=== PATIENT | female | born 1945 | race Caucasian/White ===

== ENCOUNTER → 2018-02-26 | Outpatient (CLI) | payer MEDICARE ==
--- NOTE | 2018-03-10 14:53 | MM ---
Reason for exam: screening (asymptomatic). History: Patient is postmenopausal. No children. Had some kind of female CA in 1993. MG 3D Screening Mammo W/Cad Bilateral CC and MLO view(s) were taken. XCCL view(s) were taken of the right breast. No prior studies available for comparison. There are scattered fibroglandular densities. No discrete abnormality. Previous images unavailable at this time, if they come available an addendum can be done. ASSESSMENT: Benign, BI-RAD 2 RECOMMENDATION: Routine screening mammogram of both breasts in 1 year.
== END | disposition home or self-care (01) ==
LOC: RADMAMWWP 13:00
PROVIDERS: ATTEND Family Medicine
DX: Z12.31 Encounter for screening mammogram for malignant neoplasm of breast (principal)
CPT/HCPCS: 77063; 77067

== ENCOUNTER → 2019-03-14 | Outpatient (CLI) | payer MEDICARE ==
--- NOTE | 2019-03-17 10:01 | MM ---
Reason for exam: screening (asymptomatic). Last mammogram was performed 1 year and 1 month ago. History: Patient is postmenopausal. Physical Findings: A clinical breast exam by your physician is recommended on an annual basis and results should be correlated with mammographic findings. MG 3D Screening Mammo W/Cad Bilateral CC and MLO view(s) were taken. Prior study comparison: February 26, 2018, bilateral MG 3d screening mammo w/cad. There are scattered fibroglandular densities. Benign appearing bilateral calcifications. No suspicious abnormality. No significant changes when compared with prior studies. ASSESSMENT: Benign, BI-RAD 2 RECOMMENDATION: Routine screening mammogram of both breasts in 1 year.
== END | disposition home or self-care (01) ==
LOC: RADMAMWWP 10:37
PROVIDERS: ATTEND Family Medicine
DX: Z12.31 Encounter for screening mammogram for malignant neoplasm of breast (principal)
CPT/HCPCS: 77063; 77067

== ENCOUNTER 2019-03-18 14:42 | Inpatient (IN) | payer MEDICARE ==
[2019-03-18] MEDS ORDERED: SODIUM CHLORIDE 0.9% 500 ML 500 ML IV ONE (15:56)
[2019-03-18] MEDS ORDERED: ONDANSETRON 4 MG/2 ML VIAL IVP STA (15:57)
--- NOTE | 2019-03-18 16:08 | ED ---
General Adult HPI - General Source: patient, family, RN notes reviewed, old records reviewed Mode of arrival: ambulatory Limitations: no limitations <Victorino Valle - Last Filed: 03/18/19 16:46> <Victorino Valles - Last Filed: 03/18/19 18:07> - General Chief complaint: Shortness of Breath Stated complaint: ABDIRAHMAN Time Seen by Provider: 03/18/19 15:00 - History of Present Illness Initial comments: This is a 73-year-old female presents emergency Department stating that since last Sunday she has not been feeling well. Patient states on Sunday her sugar was low at 43 and EMS was called they gave her some glucose and she's felt at that time. Patient states since then however she vomits almost every time she eats. Patient also states she's more short of breath when she ambulates. Patient states she's always somewhat short of breath when she walks around but since Sunday is worse. Patient also states that she is very forgetful and that is significantly worsen her baseline and it all occurred since last Sunday. Patient denies any focal deficits. Patient denies any lightheadedness or dizziness. Patient denies any chest pain or palpitations. Patient states while lying in bed she's had no difficulty breathing. Patient denies any fever chills or cough per patient denies abdominal pain. Patient denies any diarrhea. Fact patient states she thinks she is mildly constipated. Patient denies any swelling to the legs. Patient denies starting any new medications (Victorino Valle) - Related Data Allergies Allergy/AdvReac Type Severity Reaction Status Date / Time naproxen [From Naprosyn] Allergy Dyspnea Verified 03/18/19 14:47 Review of Systems ROS Other: All systems not noted in ROS Statement are negative. <Victorino Valle - Last Filed: 03/18/19 16:46> ROS Other: All systems not noted in ROS Statement are negative. <Victorino Valles - Last Filed: 03/18/19 18:07> ROS Statement: Those systems with pertinent positive or pertinent negative responses have been documented in the HPI. Past Medical History Past Medical History: Cancer, Diabetes Mellitus, Hyperlipidemia, Hypertension, Renal Disease Additional Past Medical History / Comment(s): uterine ca History of Any Multi-Drug Resistant Organisms: None Reported Past Surgical History: Bariatric Surgery, Cholecystectomy, Hysterectomy, Joint Replacement Additional Past Surgical History / Comment(s): kashif knee,rt foot, Past Psychological History: Depression Smoking Status: Former smoker Past Alcohol Use History: None Reported Past Drug Use History: None Reported <Victorino Valle - Last Filed: 03/18/19 16:46> General Exam Limitations: no limitations <Victorino Valle - Last Filed: 03/18/19 16:46> - General Exam Comments Initial Comments: GENERAL: Patient is well-developed and well-nourished. Patient is nontoxic and well- hydrated and is in acute distress. ENT: Neck is soft and supple. No significant lymphadenopathy is noted. Oropharynx is clear. Moist mucous membranes. Neck has full range of motion without eliciting any pain. EYES: The sclera were anicteric and conjunctiva were pink and moist. Extraocular movements were intact and pupils were equal round and reactive to light. Eyelids were unremarkable. PULMONARY: Unlabored respirations. Good breath sounds bilaterally. No audible rales rhonchi or wheezing was noted. CARDIOVASCULAR: There is a regular rate and rhythm without any murmurs gallops or rubs. ABDOMEN: Soft and nontender with normal bowel sounds. No palpable organomegaly was noted. There is no palpable pulsatile mass. SKIN: Skin is clear with no lesions or rashes and otherwise unremarkable. NEUROLOGIC: Patient is alert and oriented x3. Cranial nerves II through XII are grossly intact. Motor and sensory are also intact. Normal speech, volume and content. Symmetrical smile. MUSCULOSKELETAL: Normal extremities with adequate strength and full range of motion. LYMPHATICS: No significant lymphadenopathy is noted PSYCHIATRIC: Normal psychiatric evaluation. (Victorino Valle) Course <Victorino Valles - Last Filed: 03/18/19 18:07> Vital Signs 03/18/19 03/18/19 14:43 17:23 Temperature 98.0 F Pulse Rate 88 75 Respiratory 22 18 Rate Blood Pressure 182/82 158/77 O2 Sat by Pulse 97 97 Oximetry - Reevaluation(s) Reevaluation #1: 03/18/19 18:05 Medical records reviewed (Victorino Valles) Reevaluation #2: 03/18/19 18:05 Spoke with patient regarding findings, questions are answered here in the ER, patient still feels weak and dizzy lightheaded (Victorino Valles) - Consultations Consultation #1: Spoke with Dr. Panchal agreeable to admit (Victorino Valles) Medical Decision Making - Lab Data Result diagrams: 03/18/19 15:00 03/18/19 15:00 <Victorino Valle - Last Filed: 03/18/19 16:46> - Lab Data Result diagrams: 03/18/19 15:00 03/18/19 15:00 - Radiology Data Radiology results: report reviewed (CT brain CXR negative for acute disaease), image reviewed <Victorino Valles - Last Filed: 03/18/19 18:07> - Medical Decision Making EKG shows sinus rhythm at 84 bpm with an occasional PAC. MO interval 256 dresses 86 QT interval 360 QTC is 425. Patient's EKG shows no ST segment elevation or depression. Dr. Valles will take over the care of this patient at 5 PM (Victorino Valle) 73 female to the ER for evaluation patient presents today for evaluation regards to weakness persistent nausea vomiting and not feeling altered mental status patient is significantly uremia failure will admit for IV hydration due to dermatology to evaluate (Victorino Valles) - Lab Data Lab Results 03/18/19 03/18/19 03/18/19 Range/Units 15:00 15:00 15:00 WBC 6.5 (3.8-10.6) k/uL RBC 3.89 (3.80-5.40) m/uL Hgb 11.2 L (11.4-16.0) gm/dL Hct 36.0 (34.0-46.0) % MCV 92.5 (80.0-100.0) fL MCH 28.7 (25.0-35.0) pg MCHC 31.1 (31.0-37.0) g/dL RDW 14.8 (11.5-15.5) % Plt Count 293 (150-450) k/uL Neutrophils % 66 % Lymphocytes % 23 % Monocytes % 6 % Eosinophils % 2 % Basophils % 1 % Neutrophils # 4.3 (1.3-7.7) k/uL Lymphocytes # 1.5 (1.0-4.8) k/uL Monocytes # 0.4 (0-1.0) k/uL Eosinophils # 0.1 (0-0.7) k/uL Basophils # 0.1 (0-0.2) k/uL Hypochromasia Slight PT 9.6 (9.0-12.0) sec INR 0.9 (<1.2) APTT 22.5 (22.0-30.0) sec Sodium 140 (137-145) mmol/L Potassium 5.7 H (3.5-5.1) mmol/L Chloride 113 H (98-107) mmol/L Carbon Dioxide 12 L (22-30) mmol/L Anion Gap 15 mmol/L BUN 70 H (7-17) mg/dL Creatinine 6.06 H (0.52-1.04) mg/dL Est GFR (CKD-EPI)AfAm 7 (>60 ml/min/1.73 sqM) Est GFR (CKD-EPI)NonAf 6 (>60 ml/min/1.73 sqM) Glucose 200 H (74-99) mg/dL POC Glucose (mg/dL) (75-99) mg/dL POC Glu Concreting Supervisor ID Calcium 8.6 (8.4-10.2) mg/dL Total Bilirubin 0.4 (0.2-1.3) mg/dL AST 26 (14-36) U/L ALT 15 (4-34) U/L Alkaline Phosphatase 162 H (38-126) U/L Troponin I (0.000-0.034) ng/mL NT-Pro-B Natriuret Pep pg/mL Total Protein 7.1 (6.3-8.2) g/dL Albumin 3.8 (3.5-5.0) g/dL Urine Color Urine Appearance (Clear) Urine pH (5.0-8.0) Ur Specific [place] (1.001-1.035) Urine Protein (Negative) Urine Glucose (UA) (Negative) Urine Ketones (Negative) Urine Blood (Negative) Urine Nitrite (Negative) Urine Bilirubin (Negative) Urine Urobilinogen (<2.0) mg/dL Ur Leukocyte Esterase (Negative) Urine RBC (0-5) /hpf Urine WBC (0-5) /hpf Ur Squamous Epith Cells (0-4) /hpf Urine Bacteria (None) /hpf Hyaline Casts (0-2) /lpf Urine Mucus (None) /hpf Urine Opiates Screen (NotDetected) Ur Oxycodone Screen (NotDetected) Urine Methadone Screen (NotDetected) Ur Propoxyphene Screen (NotDetected) Ur Barbiturates Screen (NotDetected) U Tricyclic Antidepress (NotDetected) Ur Phencyclidine Scrn (NotDetected) Ur Amphetamines Screen (NotDetected) U Methamphetamines Scrn (NotDetected) U Benzodiazepines Scrn (NotDetected) Urine Cocaine Screen (NotDetected) U Marijuana (THC) Screen (NotDetected) 03/18/19 03/18/19 03/18/19 Range/Units 15:00 15:00 17:15 WBC (3.8-10.6) k/uL RBC (3.80-5.40) m/uL Hgb (11.4-16.0) gm/dL Hct (34.0-46.0) % MCV (80.0-100.0) fL MCH (25.0-35.0) pg MCHC (31.0-37.0) g/dL RDW (11.5-15.5) % Plt Count (150-450) k/uL Neutrophils % % Lymphocytes % % Monocytes % % Eosinophils % % Basophils % % Neutrophils # (1.3-7.7) k/uL Lymphocytes # (1.0-4.8) k/uL Monocytes # (0-1.0) k/uL Eosinophils # (0-0.7) k/uL Basophils # (0-0.2) k/uL Hypochromasia PT (9.0-12.0) sec INR (<1.2) APTT (22.0-30.0) sec Sodium (137-145) mmol/L Potassium (3.5-5.1) mmol/L Chloride (98-107) mmol/L Carbon Dioxide (22-30) mmol/L Anion Gap mmol/L BUN (7-17) mg/dL Creatinine (0.52-1.04) mg/dL Est GFR (CKD-EPI)AfAm (>60 ml/min/1.73 sqM) Est GFR (CKD-EPI)NonAf (>60 ml/min/1.73 sqM) Glucose (74-99) mg/dL POC Glucose (mg/dL) 109 H (75-99) mg/dL POC Glu Concreting Supervisor ID Gautam Almonte Calcium (8.4-10.2) mg/dL Total Bilirubin (0.2-1.3) mg/dL AST (14-36) U/L ALT (4-34) U/L Alkaline Phosphatase (38-126) U/L Troponin I <0.012 (0.000-0.034) ng/mL NT-Pro-B Natriuret Pep 1190 pg/mL Total Protein (6.3-8.2) g/dL Albumin (3.5-5.0) g/dL Urine Color Urine Appearance (Clear) Urine pH (5.0-8.0) Ur Specific [place] (1.001-1.035) Urine Protein (Negative) Urine Glucose (UA) (Negative) Urine Ketones (Negative) Urine Blood (Negative) Urine Nitrite (Negative) Urine Bilirubin (Negative) Urine Urobilinogen (<2.0) mg/dL Ur Leukocyte Esterase (Negative) Urine RBC (0-5) /hpf Urine WBC (0-5) /hpf Ur Squamous Epith Cells (0-4) /hpf Urine Bacteria (None) /hpf Hyaline Casts (0-2) /lpf Urine Mucus (None) /hpf Urine Opiates Screen (NotDetected) Ur Oxycodone Screen (NotDetected) Urine Methadone Screen (NotDetected) Ur Propoxyphene Screen (NotDetected) Ur Barbiturates Screen (NotDetected) U Tricyclic Antidepress (NotDetected) Ur Phencyclidine Scrn (NotDetected) Ur Amphetamines Screen (NotDetected) U Methamphetamines Scrn (NotDetected) U Benzodiazepines Scrn (NotDetected) Urine Cocaine Screen (NotDetected) U Marijuana (THC) Screen (NotDetected) 03/18/19 Range/Units Unknown WBC (3.8-10.6) k/uL RBC (3.80-5.40) m/uL Hgb (11.4-16.0) gm/dL Hct (34.0-46.0) % MCV (80.0-100.0) fL MCH (25.0-35.0) pg MCHC (31.0-37.0) g/dL RDW (11.5-15.5) % Plt Count (150-450) k/uL Neutrophils % % Lymphocytes % % Monocytes % % Eosinophils % % Basophils % % Neutrophils # (1.3-7.7) k/uL Lymphocytes # (1.0-4.8) k/uL Monocytes # (0-1.0) k/uL Eosinophils # (0-0.7) k/uL Basophils # (0-0.2) k/uL Hypochromasia PT (9.0-12.0) sec INR (<1.2) APTT (22.0-30.0) sec Sodium (137-145) mmol/L Potassium (3.5-5.1) mmol/L Chloride (98-107) mmol/L Carbon Dioxide (22-30) mmol/L Anion Gap mmol/L BUN (7-17) mg/dL Creatinine (0.52-1.04) mg/dL Est GFR (CKD-EPI)AfAm (>60 ml/min/1.73 sqM) Est GFR (CKD-EPI)NonAf (>60 ml/min/1.73 sqM) Glucose (74-99) mg/dL POC Glucose (mg/dL) (75-99) mg/dL POC Glu Concreting Supervisor ID Calcium (8.4-10.2) mg/dL Total Bilirubin (0.2-1.3) mg/dL AST (14-36) U/L ALT (4-34) U/L Alkaline Phosphatase (38-126) U/L Troponin I (0.000-0.034) ng/mL NT-Pro-B Natriuret Pep pg/mL Total Protein (6.3-8.2) g/dL Albumin (3.5-5.0) g/dL Urine Color Light Yellow Urine Appearance Cloudy H (Clear) Urine pH 5.5 (5.0-8.0) Ur Specific [place] 1.012 (1.001-1.035) Urine Protein 2+ H (Negative) Urine Glucose (UA) Trace H (Negative) Urine Ketones Negative (Negative) Urine Blood Trace H (Negative) Urine Nitrite Negative (Negative) Urine Bilirubin Negative (Negative) Urine Urobilinogen <2.0 (<2.0) mg/dL Ur Leukocyte Esterase Large H (Negative) Urine RBC 4 (0-5) /hpf Urine WBC 6 H (0-5) /hpf Ur Squamous Epith Cells 5 H (0-4) /hpf Urine Bacteria Occasional H (None) /hpf Hyaline Casts 3 H (0-2) /lpf Urine Mucus Rare H (None) /hpf Urine Opiates Screen Not Detected (NotDetected) Ur Oxycodone Screen Detected H (NotDetected) Urine Methadone Screen Not Detected (NotDetected) Ur Propoxyphene Screen Not Detected (NotDetected) Ur Barbiturates Screen Not Detected (NotDetected) U Tricyclic Antidepress Not Detected (NotDetected) Ur Phencyclidine Scrn Not Detected (NotDetected) Ur Amphetamines Screen Not Detected (NotDetected) U Methamphetamines Scrn Not Detected (NotDetected) U Benzodiazepines Scrn Not Detected (NotDetected) Urine Cocaine Screen Not Detected (NotDetected) U Marijuana (THC) Screen Not Detected (NotDetected) Disposition <Victorino Valle - Last Filed: 03/18/19 16:46> Is patient prescribed a controlled substance at d/c from ED?: No <Victorino Valles - Last Filed: 03/18/19 18:07> Clinical Impression: Weakness, Altered mental status, Uremia, Acute renal failure Disposition: ADMITTED IP TO THIS [facility] Condition: Good Referrals: Gautam Rizvi DO [Primary Care Provider] - 1-2 days
[2019-03-18 16:12] LABS: Basophils # (A) 0.1 k/uL (0-0.2); Basophils % (A) 1 %; Eosinophils # (A) 0.1 k/uL (0-0.7); Eosinophils % (A) 2 %; HGB 11.2 gm/dL (11.4-16.0); Hypochromasia Slight; Lymphocytes # (A) 1.5 k/uL (1.0-4.8); Lymphocytes % (A) 23 %; MCH 28.7 pg (25.0-35.0); MCHC 31.1 g/dL (31.0-37.0); MCV 92.5 fL (80.0-100.0); Mean Platelet Volume 7.6; Monocytes # (A) 0.4 k/uL (0-1.0); Monocytes % (A) 6 %; Neutrophils # (A) 4.3 k/uL (1.3-7.7); Neutrophils % (A) 66 %; Platelet Count 293 k/uL (150-450); RBC 3.89 m/uL (3.80-5.40); RDW 14.8 % (11.5-15.5); WBC 6.5 k/uL (3.8-10.6)
[2019-03-18 16:21] LABS: INR 0.9 (<1.2); Partial Thromboplastin Time 22.5 sec (22.0-30.0); Prothrombin Time 9.6 sec (9.0-12.0)
[2019-03-18 16:23] LABS: Albumin 3.8 g/dL (3.5-5.0); Calcium 8.6 mg/dL (8.4-10.2); Potassium 5.7 mmol/L (3.5-5.1); Total Bilirubin 0.4 mg/dL (0.2-1.3); Total Protein 7.1 g/dL (6.3-8.2)
[2019-03-18] MEDS ORDERED: DILTIAZEM DRIP BOLUS FROM BAG 1 MG SOLN IV ONE (16:40)
--- NOTE | 2019-03-18 17:08 | CT ---
EXAMINATION TYPE: CT brain wo con DATE OF EXAM: 03/18/2019 COMPARISON: None HISTORY: weakness and dizziness. CT DLP: 1074.4 mGycm Automated exposure control for dose reduction was used. Multiple axial sections were obtained of the brain without contrast. There is mild cerebral atrophy. There is no mass effect nor midline shift. There is no sign of intrac ranial hemorrhage. Calvarium is intact. There is no evidence of cerebral edema. IMPRESSION: Mild atrophy. No acute intracranial abnormality.
--- NOTE | 2019-03-18 17:09 | XR ---
EXAMINATION TYPE: XR chest 2V DATE OF EXAM: 03/18/2019 COMPARISON: NONE HISTORY: Short of breath TECHNIQUE: 2 views FINDINGS: There is elevated right diaphragm. There is linear density right lung base. There is no hea rt failure. Left lung is clear. There are chest leads. Heart size is fairly normal. IMPRESSION: There is some atelectasis right lung base with elevated right diaphragm.
[2019-03-18 17:16] LABS: Glucose,Whole Blood 109 mg/dL (75-99)
[2019-03-18] MEDS ORDERED: SODIUM CHLORIDE 0.9% 1,000 ML IV STA (17:26)
[2019-03-18 17:56] LABS: Appearance,Urine Cloudy (Clear); Bacteria,Urine Occasional /hpf; Bilirubin,Urine Negative (Negative); Blood,Urine Trace (Negative); Color,Urine Light Yellow; Glucose,Urine (UA) Trace (Negative); Hyaline Casts,Urine 3 /lpf (0-2); Ketones,Urine Negative (Negative); Leukocyte Esterase,Urine Large (Negative); Mucus,Urine Rare /hpf; Nitrite,Urine Negative (Negative); PH, Urine 5.5 (5.0-8.0); Protein,Urine 2+ (Negative); RBC,Urine 4 /hpf (0-5); Specific Gravity,Urine 1.012 (1.001-1.035); Squamous Epithelial Cell,Urine 5 /hpf (0-4); Urobilinogen,Urine <2.0 mg/dL (<2.0); WBC,Urine 6 /hpf (0-5)
[2019-03-18 18:00] LABS: Amphetamine Screen,Urine Not Detected (NotDetected); Barbiturate Screen,Urine Not Detected (NotDetected); Benzodiazepines Screen,Urine Not Detected (NotDetected); Cocaine Screen,Urine Not Detected (NotDetected); Methadone Screen, Urine Not Detected (NotDetected); Opiate Screen,Urine Not Detected (NotDetected); Oxycodone Screen, Urine Detected (NotDetected); Phencyclidine Screen,Urine Not Detected (NotDetected); Tricyclic Antidepressant,Urine Not Detected (NotDetected); Urn Cannabinoid Scrn Not Detected (NotDetected)
[2019-03-18] MEDS ORDERED: SODIUM CHLORIDE 0.9% 1,000 ML IV ONE (18:04)
[2019-03-18 18:06] LABS: Magnesium 1.5 mg/dL (1.6-2.3)
[2019-03-18] MEDS ORDERED: SODIUM POLYSTYRENE SULFONATE 15 GM/60 ML BOTTLE PO STA (20:11)
[2019-03-18] MEDS ORDERED: ENOXAPARIN 40 MG/0.4 ML SYRINGE SQ SCH (21:00)
[2019-03-18 21:25] LABS: Glucose,Whole Blood 88 mg/dL (75-99)
[2019-03-18] MEDS: DILTIAZEM ORAL 60 MG TAB PO SCH (21:36)
[2019-03-18] MEDS: oxyCODONE-APAP 10-325MG 1 EACH TAB PO PRN (21:36)
[2019-03-18] MEDS: CYANOCOBALAMIN 500 MCG TAB PO SCH (21:37)
[2019-03-18] MEDS: SODIUM CHLORIDE 0.9% 1,000 ML IV SCH (21:37)
[2019-03-18] MEDS: ONDANSETRON 4 MG/2 ML VIAL IVP PRN (23:48)
[2019-03-19] MEDS: BISACODYL 5 MG TABLET.DR PO PRN (04:08)
[2019-03-19 06:04] LABS: Glucose,Whole Blood 71 mg/dL (75-99)
[2019-03-19 06:08] LABS: Albumin 2.9 g/dL (3.5-5.0); Calcium 7.7 mg/dL (8.4-10.2); Total Bilirubin 0.3 mg/dL (0.2-1.3); Total Protein 5.7 g/dL (6.3-8.2)
[2019-03-19] MEDS: LEVOTHYROXINE 112 MCG TAB PO SCH (06:31)
[2019-03-19] MEDS: SODIUM CHLORIDE 0.9% 1,000 ML IV SCH (06:31)
[2019-03-19] MEDS: ONDANSETRON 4 MG/2 ML VIAL IVP PRN ×3 (06:34→17:06)
[2019-03-19] MEDS: DILTIAZEM ORAL 60 MG TAB PO SCH ×2 (08:57→21:12)
[2019-03-19] MEDS: CITALOPRAM HYDROBROMIDE 20 MG TAB PO SCH (08:57)
[2019-03-19] MEDS: ATORVASTATIN 20 MG TAB PO SCH (08:57)
[2019-03-19] MEDS: oxyCODONE-APAP 10-325MG 1 EACH TAB PO PRN ×3 (09:00→23:33)
--- NOTE | 2019-03-19 09:46 | P.NPCON ---
History of Present Illness - Reason for Consult acute renal failure, chronic renal failure - History of Present Illness Reason for consultation: Acute kidney injury on chronic kidney disease History of present illness: Patient is a 73-year-old female seen in renal consultation for acute kidney injury on chronic kidney disease. Patient has chronic kidney disease stage IV secondary to diabetic kidney disease with baseline creatinine near 2.2. Patient states her blood sugar has been running low recently and she's been having intermittent episodes of vomiting. Patient's his oral intake has been poor. Additionally she was taking lisinopril as well as Lasix at home. Patient received 1.5 L bolus of normal saline in the ER and is currently maintained on normal saline at 1 25 mL an hour. She does not have a Nieves catheter. She has been voiding. No diarrhea. No evidence of hypotension. Her blood pressures actually on the higher side. She denies family history of renal disease. Patient's creatinine on admission was 6.06 and is 5.57 today. She is also noted to be acidotic and a bicarb level today is 14. She denies use of nonsteroidals. No fever or chills. No chest pain or shortness of breath. Blood sugar this admission has been stable. Vital signs are stable. General: The patient appeared well nourished and normally developed. HEENT: Head exam is unremarkable. Neck is without jugular venous distension. LUNGS: Lungs are clear to auscultation and percussion. Breath sounds decreased. HEART: Rate and Rhythm are regular. First and second heart sounds normal. No murmurs, rubs or gallops. ABDOMEN: Abdominal exam reveals normal bowel sounds. Non-tender and non- distended. No evidence of peritonitis. EXTREMITITES: Trace edema. Past Medical History Past Medical History: Cancer, Diabetes Mellitus, Hyperlipidemia, Hypertension, Renal Disease Additional Past Medical History / Comment(s): uterine ca History of Any Multi-Drug Resistant Organisms: None Reported Past Surgical History: Bariatric Surgery, Cholecystectomy, Hysterectomy, Joint Replacement Additional Past Surgical History / Comment(s): kashif knee,rt foot, Past Psychological History: Depression Smoking Status: Former smoker Past Alcohol Use History: None Reported Past Drug Use History: None Reported - Past Family History Mother Family Medical History: Diabetes Mellitus, Hypertension Father Family Medical History: Diabetes Mellitus, Hypertension Sister(s) Family Medical History: Diabetes Mellitus Medications and Allergies Home Medications Medication Instructions Recorded Confirmed Type Calcitriol 0.5 mcg PO LOBO 03/18/19 03/18/19 History Cholecalciferol [Vitamin D3 (25 2,000 unit PO HS 03/18/19 03/18/19 History Mcg = 1000 Iu)] Citalopram Hydrobromide [CeleXA] 40 mg PO DAILY 03/18/19 03/18/19 History Cyanocobalamin (Vitamin B-12) 1,000 mcg PO HS 03/18/19 03/18/19 History [Vitamin B-12] Diltiazem HCl 120 mg PO BID 03/18/19 03/18/19 History Furosemide [Lasix] 20 mg PO DAILY 03/18/19 03/18/19 History Levothyroxine Sodium [Synthroid] 112 mcg PO DAILY 03/18/19 03/18/19 History Lisinopril [Zestril] 5 mg PO DAILY 03/18/19 03/18/19 History Multivitamin [Multivitamins Adult 1 tab PO HS 03/18/19 03/18/19 History Gummies] Rosuvastatin Calcium [Crestor] 10 mg PO DAILY 03/18/19 03/18/19 History glipiZIDE [Glucotrol] 10 mg PO AC-BID 03/18/19 03/18/19 History oxyCODONE-APAP 10-325MG [Percocet 1 tab PO TID PRN 03/18/19 03/18/19 History 10-325 mg] Allergies Allergy/AdvReac Type Severity Reaction Status Date / Time naproxen [From Naprosyn] Allergy Dyspnea Verified 03/18/19 14:47 Physical Exam Vitals: Vital Signs Temp Pulse Pulse Resp BP BP Pulse Ox 03/19/19 08:00 98.9 F 82 18 179/86 97 03/19/19 04:00 98.0 F 80 17 182/77 96 03/19/19 00:00 97.8 F 83 18 139/62 95 03/18/19 21:08 97.8 F 80 18 179/82 100 03/18/19 20:18 98.0 F 81 18 145/86 97 03/18/19 20:08 81 18 145/86 97 03/18/19 20:00 82 18 03/18/19 17:23 75 18 158/77 97 03/18/19 14:43 98.0 F 88 22 182/82 97 Intake and Output 03/18/19 03/19/19 03/19/19 22:59 06:59 14:59 Intake Total 125 360 Output Total 800 300 Balance 125 -800 60 Intake: Intake, IV Titration 125 Amount Sodium Chloride 0.9% 1, 125 000 ml @ 125 mls/hr IV . Q8H [facility] Rx#:[id number] Oral 360 Output: Urine 800 300 Other: Voiding Method Toilet Toilet # Voids 2 1 # Bowel Movements 1 Weight 111.13 kg 113.2 kg Results - Lab Results Most recent lab results Calcium 7.7 mg/dL (8.4-10.2) L 03/19/19 05:36 Phosphorus 7.0 mg/dL (2.5-4.5) H 03/18/19 15:00 Magnesium 1.5 mg/dL (1.6-2.3) L 03/18/19 15:00 03/18/19 15:00 03/19/19 05:36 Assessment and Plan Plan: Assessment: 1. Acute kidney injury secondary to ATN secondary to intravascular volume depletion from vomiting and poor oral intake and further worsened with the use of diuretics and lisinopril. Creatinine 6.06 on admission and is 5.57 today. Rule out urinary retention. 2. Chronic kidney disease stage IV secondary to diabetic kidney disease with baseline creatinine near 2.2. 3. Hyperkalemia secondary to acute kidney injury, metabolic acidosis and use of lisinopril. 4. Metabolic acidosis secondary to acute kidney injury. 5. Insulin-dependent diabetes mellitus. 6. Hypertension with chronic kidney disease. 7. Chronic kidney disease mineral bone disease maintained on calcitriol. Plan: Discontinue normal saline and start isotonic sodium bicarbonate drip to be run at 80 mL an hour. Strict is and os. Check bladder scan to make sure no underlying urinary retention. Hold lisinopril and diuretics for now. Add hydralazine 25 mg 3 times daily. Continue to monitor renal function and urine output. Thank you for the consultation. I will continue to follow the patient with you during her hospital stay.
[2019-03-19] MEDS: DEXTROSE 5% IN WATER 1,000 ML with SODIUM BICARB (1 MEQ/ML) 150 ML IV SCH ×2 (12:04→23:44)
[2019-03-19 12:08] LABS: Glucose,Whole Blood 114 mg/dL (75-99)
[2019-03-19 16:59] LABS: Glucose,Whole Blood 174 mg/dL (75-99)
[2019-03-19] MEDS: hydrALAZINE HCL 25 MG TAB PO SCH ×2 (17:05→21:12)
[2019-03-19] MEDS: INSULIN ASPART (NovoLOG) 100 UNIT/ML VIAL SQ SCH ×2 (17:27→21:13)
[2019-03-19 20:43] LABS: Glucose,Whole Blood 124 mg/dL (75-99)
[2019-03-19] MEDS: CYANOCOBALAMIN 500 MCG TAB PO SCH (21:12)
[2019-03-19] MEDS: ENOXAPARIN 30 MG/0.3 ML SYRINGE SQ SCH (21:12)
[2019-03-19] MEDS: IPRATROPIUM-ALBUTEROL 3 ML NEB INHALATION SCH (21:45)
--- NOTE | 2019-03-19 23:29 | P.HPIM ---
History of Present Illness H&P Date: 03/19/19 Chief Complaint: Tired History of presenting complaint: This is a pleasant [address] Rizvi. Chronic stable medical conditions include hypertension, hyperlipidemia, depression, anxiety, osteoarthritis. Patient about a week ago felt that she cannot really speak felt out of sorts. EMS was called out. Follow Accu-Cheks to be 43. Received glucose and felt better. She did not go to the hospital. Since then she been having nausea vomiting and predominantly throwing up. She went to see a pain specialist Dr. Carrillo and she was again incoherent of that. Decided to send her to the ER. No abdominal pain. Has been having some chills. In the ER found to be in acute renal failure. Patient's baseline creatinine per nephrology rundown 2.2. Review of systems: GEN.: Tired EYES: None HEENT: None NECK: None RESPIRATORY: None CARDIOVASCULAR: None GASTROINTESTINAL: None GENITOURINARY: None MUSCULOSKELETAL: Joint pains LYMPHATICS: None HEMATOLOGICAL: None PSYCHIATRY: None NEUROLOGICAL: No focal currently Past medical history to include: Hypertension, hyperlipidemia, depression, anxiety, osteoarthritis, chronic kidney disease stage IV, uterine cancer, bariatric surgery, depression, osteoarthritis Social history: Does smoke in the past. This is a long-standing friend. Does use a cane. Physical examination: VITAL SIGNS: Reviewed in today's electronic records GENERAL: [BMI 44.2, laying in bed awake a bit tired,]. EYES: [Pupils equal. Conjunctiva narda]l. HEENT: [External appearance of nose and ears normal, oral cavity grossly normal]. NECK: [JVD not raised; masses not palpable]. HEART: [First and second heart sounds are normal; no edema]. LUNGS:[ Respiratory rate normal; clear to auscultation]. ABDOMEN: [Soft, nontender, liver spleen not palpable, no masses palpable]. PSYCH: [Alert and oriented x3; mood and affect narda] MUSCULOSKELETAL: Evidence of OA especially in the hands l. NEUROLOGICAL: [Cranial nerves grossly intact; no facial asymmetry, power and sensation grossly intact]. LYMPHATICS: [No lymph nodes palpable in the axilla and neck] INVESTIGATIONS, reviewed in the clinical context: White count 6.5 hemoglobin 11.2 platelets 293 pressure 5.7 bun 70 creatinine 6.06 Baseline creatinine supposed to be 2.2 UA positive for leukoesterase, WBC Urine drug screen positive for oxycodone EKG tracing personally reviewed by me shows-sinus rhythm Chest x-ray film personally reviewed by me-elevated right diaphragm, lung marlow are clear Computed tomography scan of the brain-lung marlow clear Assessment: -Diabetes mellitus type 2 uncontrolled with episodes of hypoglycemia, symptomatic -Acute kidney injury likely ATN with a contribution from patient being on RAFAEL inhibitor Lasix -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 RAFAEL inhibitor Lasix have been discontinued. Nephrology was consulted. We'll get carotid Doppler. Patient does not have any focal neurological findings. Electrolytes followed closely. Amlodipine medications for blood pressure. Past Medical History Past Medical History: Cancer, Diabetes Mellitus, Hyperlipidemia, Hypertension, Renal Disease Additional Past Medical History / Comment(s): uterine ca History of Any Multi-Drug Resistant Organisms: None Reported Past Surgical History: Bariatric Surgery, Cholecystectomy, Hysterectomy, Joint Replacement Additional Past Surgical History / Comment(s): kashif knee,rt foot, Past Psychological History: Depression Smoking Status: Former smoker Past Alcohol Use History: None Reported Past Drug Use History: None Reported - Past Family History Mother Family Medical History: Diabetes Mellitus, Hypertension Father Family Medical History: Diabetes Mellitus, Hypertension Sister(s) Family Medical History: Diabetes Mellitus Medications and Allergies Home Medications Medication Instructions Recorded Confirmed Type Calcitriol 0.5 mcg PO LOBO 03/18/19 03/18/19 History Cholecalciferol [Vitamin D3 (25 2,000 unit PO 03/18/19 03/18/19 History Mcg = 1000 Iu)] Citalopram Hydrobromide [CeleXA] 40 mg PO DAILY 03/18/19 03/18/19 History Cyanocobalamin (Vitamin B-12) 1,000 mcg PO 03/18/19 03/18/19 History [Vitamin B-12] Diltiazem HCl 120 mg PO BID 03/18/19 03/18/19 History Furosemide [Lasix] 20 mg PO DAILY 03/18/19 03/18/19 History Levothyroxine Sodium [Synthroid] 112 mcg PO DAILY 03/18/19 03/18/19 History Lisinopril [Zestril] 5 mg PO DAILY 03/18/19 03/18/19 History Multivitamin [Multivitamins Adult 1 tab PO HS 03/18/19 03/18/19 History Gummies] Rosuvastatin Calcium [Crestor] 10 mg PO DAILY 03/18/19 03/18/19 History glipiZIDE [Glucotrol] 10 mg PO AC-BID 03/18/19 03/18/19 History oxyCODONE-APAP 10-325MG [Percocet 1 tab PO TID PRN 03/18/19 03/18/19 History 10-325 mg] Allergies Allergy/AdvReac Type Severity Reaction Status Date / Time naproxen [From Naprosyn] Allergy Dyspnea Verified 03/18/19 14:47 Physical Exam Vitals: Vital Signs Temp Pulse Pulse Resp BP BP Pulse Ox 03/19/19 08:00 98.9 F 82 18 179/86 97 03/19/19 04:00 98.0 F 80 17 182/77 96 03/19/19 00:00 97.8 F 83 18 139/62 95 03/18/19 21:08 97.8 F 80 18 179/82 100 03/18/19 20:18 98.0 F 81 18 145/86 97 03/18/19 20:08 81 18 145/86 97 03/18/19 20:00 82 18 03/18/19 17:23 75 18 158/77 97 03/18/19 14:43 98.0 F 88 22 182/82 97 Intake and Output 03/18/19 03/19/19 03/19/19 22:59 06:59 14:59 Intake Total 125 360 Output Total 800 300 Balance 125 -800 60 Intake: Intake, IV Titration 125 Amount Sodium Chloride 0.9% 1, 125 000 ml @ 125 mls/hr IV . Q8H [facility] Rx#:[id number] Oral 360 Output: Urine 800 300 Other: Voiding Method Toilet Toilet Toilet # Voids 2 1 # Bowel Movements 1 Weight 111.13 kg 113.2 kg Results CBC & Chem 7: 03/18/19 15:00 03/19/19 05:36 Labs: Abnormal Lab Results - Last 24 Hours (Table) 03/18/19 03/18/19 03/18/19 Range/Units 15:00 15:00 15:00 Hgb 11.2 L (11.4-16.0) gm/dL Potassium 5.7 H (3.5-5.1) mmol/L Chloride 113 H (98-107) mmol/L Carbon Dioxide 12 L (22-30) mmol/L BUN 70 H (7-17) mg/dL Creatinine 6.06 H (0.52-1.04) mg/dL Glucose 200 H (74-99) mg/dL POC Glucose (mg/dL) (75-99) mg/dL Calcium (8.4-10.2) mg/dL Phosphorus 7.0 H (2.5-4.5) mg/dL Magnesium 1.5 L (1.6-2.3) mg/dL Alkaline Phosphatase 162 H (38-126) U/L Total Protein (6.3-8.2) g/dL Albumin (3.5-5.0) g/dL Urine Appearance (Clear) Urine Protein (Negative) Urine Glucose (UA) (Negative) Urine Blood (Negative) Ur Leukocyte Esterase (Negative) Urine WBC (0-5) /hpf Ur Squamous Epith Cells (0-4) /hpf Urine Bacteria (None) /hpf Hyaline Casts (0-2) /lpf Urine Mucus (None) /hpf Ur Oxycodone Screen (NotDetected) 03/18/19 03/18/19 03/19/19 Range/Units 17:15 Unknown 05:36 Hgb (11.4-16.0) gm/dL Potassium (3.5-5.1) mmol/L Chloride 118 H (98-107) mmol/L Carbon Dioxide 14 L (22-30) mmol/L BUN 64 H (7-17) mg/dL Creatinine 5.57 H (0.52-1.04) mg/dL Glucose 68 L (74-99) mg/dL POC Glucose (mg/dL) 109 H (75-99) mg/dL Calcium 7.7 L (8.4-10.2) mg/dL Phosphorus (2.5-4.5) mg/dL Magnesium (1.6-2.3) mg/dL Alkaline Phosphatase 130 H (38-126) U/L Total Protein 5.7 L (6.3-8.2) g/dL Albumin 2.9 L (3.5-5.0) g/dL Urine Appearance Cloudy H (Clear) Urine Protein 2+ H (Negative) Urine Glucose (UA) Trace H (Negative) Urine Blood Trace H (Negative) Ur Leukocyte Esterase Large H (Negative) Urine WBC 6 H (0-5) /hpf Ur Squamous Epith Cells 5 H (0-4) /hpf Urine Bacteria Occasional H (None) /hpf Hyaline Casts 3 H (0-2) /lpf Urine Mucus Rare H (None) /hpf Ur Oxycodone Screen Detected H (NotDetected) 03/19/19 Range/Units 06:02 Hgb (11.4-16.0) gm/dL Potassium (3.5-5.1) mmol/L Chloride (98-107) mmol/L Carbon Dioxide (22-30) mmol/L BUN (7-17) mg/dL Creatinine (0.52-1.04) mg/dL Glucose (74-99) mg/dL POC Glucose (mg/dL) 71 L (75-99) mg/dL Calcium (8.4-10.2) mg/dL Phosphorus (2.5-4.5) mg/dL Magnesium (1.6-2.3) mg/dL Alkaline Phosphatase (38-126) U/L Total Protein (6.3-8.2) g/dL Albumin (3.5-5.0) g/dL Urine Appearance (Clear) Urine Protein (Negative) Urine Glucose (UA) (Negative) Urine Blood (Negative) Ur Leukocyte Esterase (Negative) Urine WBC (0-5) /hpf Ur Squamous Epith Cells (0-4) /hpf Urine Bacteria (None) /hpf Hyaline Casts (0-2) /lpf Urine Mucus (None) /hpf Ur Oxycodone Screen (NotDetected) Thrombosis Risk Factor Assmnt - Choose All That Apply Each Factor Represents 1 point: Obesity (BMI >25) Thrombosis Risk Factor Assessment Total Risk Factor Score: 1 Thrombosis Risk Factor Assessment Level: Low Risk
[2019-03-19] MEDS ORDERED: amLODIPine 5 MG TAB PO SCH (23:30)
[2019-03-20 05:55] LABS: Glucose,Whole Blood 118 mg/dL (75-99)
[2019-03-20] MEDS: INSULIN ASPART (NovoLOG) 100 UNIT/ML VIAL SQ SCH ×4 (06:22→20:56)
[2019-03-20] MEDS: LEVOTHYROXINE 112 MCG TAB PO SCH (07:02)
[2019-03-20] MEDS: ONDANSETRON 4 MG/2 ML VIAL IVP PRN (07:03)
[2019-03-20 07:06] LABS: Calcium 7.8 mg/dL (8.4-10.2); Magnesium 1.4 mg/dL (1.6-2.3); Potassium 4.1 mmol/L (3.5-5.1)
[2019-03-20] MEDS: oxyCODONE-APAP 10-325MG 1 EACH TAB PO PRN ×3 (08:26→22:56)
[2019-03-20] MEDS: DILTIAZEM ORAL 60 MG TAB PO SCH ×2 (08:27→20:48)
[2019-03-20] MEDS: hydrALAZINE HCL 25 MG TAB PO SCH (08:27)
[2019-03-20] MEDS: CITALOPRAM HYDROBROMIDE 20 MG TAB PO SCH (08:27)
[2019-03-20] MEDS: ATORVASTATIN 20 MG TAB PO SCH (08:28)
[2019-03-20] MEDS: IPRATROPIUM-ALBUTEROL 3 ML NEB INHALATION SCH ×3 (08:31→20:29)
--- NOTE | 2019-03-20 08:58 | US ---
EXAMINATION TYPE: US carotid duplex BILAT DATE OF EXAM: 03/20/2019 COMPARISON: NONE CLINICAL HISTORY: Intermittent slurred speech. Intermittent slurred speech, confusion EXAM MEASUREMENTS: RIGHT: Peak Systolic Velocity (PSV) cm/sec ----- Right CCA: 100.3 ----- Right ICA: 109.4 ----- Right ECA: 121.0 ICA/CCA ratio: 1.1 RIGHT: End Diastole cm/sec ----- Right CCA: 16.8 ----- Right ICA: 29.9 ----- Right ECA: 12.8 LEFT: Peak Systolic Velocity (PSV) cm/sec ----- Left CCA: 111.2 ----- Left ICA: 111.3 ----- Left ECA: 101.6 ICA/CCA ratio: 1.0 LEFT: End Diastole cm/sec ----- Left CCA: 19.3 ----- Left ICA: 37.0 ----- Left ECA: 9.5 VERTEBRALS (direction of flow): Right Vertebral: Antegrade Left Vertebral: Antegrade Mild plaque bilateral bifurcations. No evidence of significant stenosis IMPRESSION: Mild degree of grayscale atheromatous plaquing with no sonographically evident hemodynam ically significant stenosis within either visualized carotid arterial system. Criteria for Assigning % of Stenosis / Diameter reduction (Estimation based on the indirect measurements of the internal carotid artery velocities (ICA PSV). 1. Normal (no stenosis)=ICA PSV < 125 cm/s: ratio < 2.0: ICA EDV<40 cm/s. 2. Less than 50% stenosis=ICA PSV < 125 cm/s: ratio < 2.0: ICA EDV<40 cm/s. 3. 50 to 69% stenosis=ICA PSV of 125 to 230 cm/s: ration 2.0 ? 4.0: ICA EDV 40-100 cm/s. 4. Greater than 70% stenosis to near occlusion= ICA PSV > 230 cm/s: ratio > 4.0: ICA EDV > 100 cm/s. 5. Near occlusion= ICA PSV velocities may be low or undetectable: variable ratio and ICA EDV. 6. Total occlusion=unable to detect flow.
--- NOTE | 2019-03-20 09:41 | P.PN ---
Subjective Patient is seen in follow-up for acute kidney injury on chronic kidney disease. No significant improvement in renal function. She has been voiding. No vomiting or diarrhea. Vital signs are stable. General: The patient appeared well nourished and normally developed. HEENT: Head exam is unremarkable. Neck is without jugular venous distension. LUNGS: Lungs are clear to auscultation and percussion. Breath sounds decreased. HEART: Rate and Rhythm are regular. First and second heart sounds normal. No murmurs, rubs or gallops. ABDOMEN: Abdominal exam reveals normal bowel sounds. Non-tender and non- distended. No evidence of peritonitis. EXTREMITITES: No clubbing, cyanosis, or edema. Objective - Vital Signs Vital signs: Vital Signs Temp 97.9 F 03/20/19 08:00 Pulse 86 03/20/19 08:46 Resp 19 03/20/19 08:00 BP 202/91 03/20/19 08:00 Pulse Ox 95 03/20/19 08:36 Intake & Output 03/19/19 03/20/19 03/20/19 18:59 06:59 18:59 Intake Total 720 600 240 Output Total 300 1100 Balance 420 -500 240 Weight 111 kg Intake: Intake, IV Titration 600 Amount Dextrose 5% in Water 1, 600 000 ml @ 80 mls/hr IV . [id number] with Sodium Bicarb (1 Meq/ml) 150 ml Rx#:[id number] Oral 720 240 Output: Urine 300 1100 Other: Voiding Method Toilet Toilet Toilet # Voids 1 1 # Bowel Movements 1 - Labs CBC & Chem 7: 03/18/19 15:00 03/20/19 06:26 Labs: Abnormal Lab Results - Last 24 Hours (Table) 03/19/19 03/19/19 03/19/19 Range/Units 11:59 16:49 20:41 Chloride (98-107) mmol/L Carbon Dioxide (22-30) mmol/L BUN (7-17) mg/dL Creatinine (0.52-1.04) mg/dL Glucose (74-99) mg/dL POC Glucose (mg/dL) 114 H 174 H 124 H (75-99) mg/dL Calcium (8.4-10.2) mg/dL Magnesium (1.6-2.3) mg/dL 03/20/19 03/20/19 Range/Units 05:53 06:26 Chloride 111 H (98-107) mmol/L Carbon Dioxide 17 L (22-30) mmol/L BUN 61 H (7-17) mg/dL Creatinine 5.37 H (0.52-1.04) mg/dL Glucose 106 H (74-99) mg/dL POC Glucose (mg/dL) 118 H (75-99) mg/dL Calcium 7.8 L (8.4-10.2) mg/dL Magnesium 1.4 L (1.6-2.3) mg/dL Assessment and Plan Plan: Assessment: 1. Acute kidney injury secondary to ATN secondary to intravascular volume depletion from vomiting and poor oral intake and further worsened with the use of diuretics and lisinopril. Creatinine 6.06 on admission and is 5.37 today. 2. Chronic kidney disease stage IV secondary to diabetic kidney disease with baseline creatinine near 2.2. 3. Hyperkalemia secondary to acute kidney injury, metabolic acidosis and use of lisinopril. Resolved. 4. Metabolic acidosis secondary to acute kidney injury. Improving. 5. Insulin-dependent diabetes mellitus. 6. Hypertension with chronic kidney disease. 7. Chronic kidney disease mineral bone disease maintained on calcitriol. Plan: Maintain bicarb drip at 80 mL an hour. Increase hydralazine to 50 mg 3 times daily. Strict is and os. Hold lisinopril and diuretics for now. Continue to monitor renal function and urine output. No urgent need for renal replacement therapy at this time. Continue to assess on daily basis.
[2019-03-20] MEDS: MAGNESIUM SULFATE-D5W PMX 1 GM in DEXTROSE/WATER 1 100ML.BAG IVPB SCH ×3 (10:03→12:32)
[2019-03-20 12:11] LABS: Glucose,Whole Blood 226 mg/dL (75-99)
--- NOTE | 2019-03-20 13:26 | CDI ---
Documentation Clarification Form Date: 03/20/2019 12:50:18 PM From: Viky Rodarte RN CCDS Admit Date: 03/18/2019 06:04:00 PM Patient Name: Barb Mohr Visit Number: [id number] Discharge Date: ATTENTION: The Clinical Documentation Specialists (CDI) and [facility] Coding Staff appreciate your assistance in clarifying documentation. Please respond to the clarification below the line at the bottom and electronically sign. The CDI & [facility] Coding staff will review the response and follow-up if needed. Please note: Queries are made part of the Legal Health Record. If you have any questions, please contact the author of this message via ITS. Dr. Duncan Panchal Altered Mental Status was documented in the ED Notes 03/18 History/Risk Factors: 73-year-old female presents to the ED via EMS from Dr. Chin office for being incoherent. Medical history DM 2; Depression; Anxiety; Stage IV kidney disease. Patient was admitted in Acute renal failure Cr 6.06 baseline is 2.2 per the H&P 03/19 Clinical Indicators: Order for CT of Brain 03/[address] of brain without con stat, Order set ED Altered Mental Status Order for US Carotid duplex Bilateral Clinical history Intermittent slurred speech, confusion. Labs: 03/18 K 5.7; Cl 113; Carbon Dioxide 12; Bun 70, Cr 6.06; glucose 200; Phos 7.0; Mag 1.5; Alk Phos 162; Bnp 119; UA Leukocyte esterase large WBC 6; Toxicology Screen Oxycodone Detected. 03/20 Us Carotid Greater than 70% stenosis to near occlusion = ICA 03/18 CXR Some atelectasis right lung base with elevated right diaphragm 03/18 CT Brain Mild atrophy. No acute intracranial abnormality Treatment: 03/18 0.9ns 1.5L bolus followed by 100cc/hr d/c 03/19, 03/18 Kayexalate po x 1, 03/18 Percocet 10/325 1 each po TID PRN Pain In your professional opinion, please clarify the etiology of the Altered Mental Status, if known. * Metabolic Encephalopathy (specify Type and Underlying Medical Illness) * Other condition (please specify) * Unable to determine (Last Revision: May 2017) Acute metabolic encephalopathy secondary to hypoglycemia MTDD
[2019-03-20 16:34] LABS: Glucose,Whole Blood 216 mg/dL (75-99)
[2019-03-20] MEDS: hydrALAZINE HCL 50 MG TAB PO SCH ×2 (17:32→20:48)
[2019-03-20] MEDS: DEXTROSE 5% IN WATER 1,000 ML with SODIUM BICARB (1 MEQ/ML) 150 ML IV SCH (20:02)
[2019-03-20 20:10] LABS: Glucose,Whole Blood 223 mg/dL (75-99)
[2019-03-20] MEDS: CYANOCOBALAMIN 500 MCG TAB PO SCH (20:47)
[2019-03-20] MEDS: ENOXAPARIN 30 MG/0.3 ML SYRINGE SQ SCH (20:48)
[2019-03-20] MEDS: BISACODYL 5 MG TABLET.DR PO PRN (20:48)
--- NOTE | 2019-03-20 21:36 | P.PN ---
Progress Note - Text Progress Note Date: 03/20/19 Chief Complaint: Tired History of presenting complaint: This is a pleasant [address] Rizvi. Chronic stable medical conditions include hypertension, hyperlipidemia, depression, anxiety, osteoarthritis. Patient about a week ago felt that she cannot really speak felt out of sorts. EMS was called out. Follow Accu-Cheks to be 43. Received glucose and felt better. She did not go to the hospital. Since then she been having nausea vomiting and predominantly throwing up. She went to see a pain specialist Dr. Carrillo and she was again incoherent of that. Decided to send her to the ER. No abdominal pain. Has been having some chills. In the ER found to be in acute renal failure. Patient's baseline creatinine per nephrology rundown 2.2. Admitted with-episodes of hypoglycemia, symptomatic, acute kidney injury likely ATN. Oral hypoglycemics were discontinued. Today-feeling a bit better. Tolerating a diet. No more low sugars. Review of systems: Was done for constitutional, cardiovascular, GI, pulmonary. relevant finding as above Active Medications Albuterol/Ipratropium (Duoneb 0.5 Mg-3 Mg/3 Ml Soln) 3 ml INHALATION RT-TID [facility] Last Admin: 03/20/19 20:29 Dose: 3 ml Documented by: Atorvastatin Calcium (Lipitor) 20 mg PO DAILY [facility] Last Admin: 03/20/19 08:28 Dose: 20 mg Documented by: Bisacodyl (Dulcolax) 10 mg PO DAILY PRN PRN Reason: Constipation Last Admin: 03/20/19 20:48 Dose: 10 mg Documented by: Calcitriol (Rocaltrol) 0.5 mcg PO [facility] Citalopram Hydrobromide (Celexa) 40 mg PO DAILY [facility] Last Admin: 03/20/19 08:27 Dose: 40 mg Documented by: Cyanocobalamin (Vitamin B-12) 1,000 mcg PO [facility] Last Admin: 03/20/19 20:47 Dose: 1,000 mcg Documented by: Diltiazem HCl (Cardizem Oral) 120 mg PO BID [facility] Last Admin: 03/20/19 20:48 Dose: 120 mg Documented by: Enoxaparin Sodium (Lovenox) 30 mg SQ [facility] Last Admin: 03/20/19 20:48 Dose: 30 mg Documented by: Hydralazine HCl (Apresoline) 50 mg PO TID [facility] Last Admin: 03/20/19 20:48 Dose: 50 mg Documented by: Sodium Bicarbonate 150 ml/ (Dextrose/Water) 1,150 mls @ 80 mls/hr IV .[id number] [facility] Last Admin: 03/20/19 20:02 Dose: Not Given Documented by: Insulin Aspart (Novolog) 0 unit SQ ACHS [facility]; Protocol Last Admin: 03/20/19 20:56 Dose: 4 unit Documented by: Levothyroxine Sodium (Synthroid) 112 mcg PO DAILY@0630 [facility] Last Admin: 03/20/19 07:02 Dose: 112 mcg Documented by: Ondansetron HCl (Zofran) 4 mg IVP Q6HR PRN PRN Reason: Nausea And Vomiting Last Admin: 03/20/19 07:03 Dose: 4 mg Documented by: Oxycodone/Acetaminophen (Percocet 10-325) 1 each PO TID PRN PRN Reason: Pain Last Admin: 03/20/19 17:36 Dose: 1 each Documented by: Physical examination: VITAL SIGNS: 97.9-83-19-202/91-95% on room air. Repeat blood pressure 142/86 GENERAL: Laying in bed, awake, but tired EYES: Pupils equal. Conjunctiva normal. HEENT: External appearance of nose and ears normal, oral cavity grossly normal. NECK: JVD not raised; masses not palpable. HEART: First and second heart sounds are normal; no edema. LUNGS: Respiratory rate normal; clear to auscultation. ABDOMEN: Soft, nontender, liver spleen not palpable, no masses palpable. PSYCH: Alert and oriented x3; mood and affect narda MUSCULOSKELETAL: Evidence of OA especially in the hands l. NEUROLOGICAL: Cranial nerves grossly intact; no facial asymmetry, power and sensation grossly intact. INVESTIGATIONS, reviewed in the clinical context: Potassium 4.1 bun 61 creatinine 5.37 magnesium 1.4 [id number] Previous testing White count 6.5 hemoglobin 11.2 platelets 293 pressure 5.7 bun 70 creatinine 6.06 Baseline creatinine supposed to be 2.2 UA positive for leukoesterase, WBC Urine drug screen positive for oxycodone EKG tracing personally reviewed by me shows-sinus rhythm Chest x-ray film personally reviewed by me-elevated right diaphragm, lung marlow are clear Computed tomography scan of the brain-lung marlow clear Assessment: -Diabetes mellitus type 2 uncontrolled with episodes of hypoglycemia, symptomatic, improving -Acute kidney injury likely ATN with a contribution from patient being on RAFAEL inhibitor Lasix, slow to improve -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 Accu-Cheks of,.. The patient on glipizide on a smaller dose.. Keep the patient on a bicarbonate drip. Hydralazine increased to 50 mg 3 times a day. Discussed with the patient. Follow electrolytes.
[2019-03-21 06:06] LABS: Glucose,Whole Blood 138 mg/dL (75-99)
[2019-03-21] MEDS: DEXTROSE 5% IN WATER 1,000 ML with SODIUM BICARB (1 MEQ/ML) 150 ML IV SCH (06:26)
[2019-03-21] MEDS: INSULIN ASPART (NovoLOG) 100 UNIT/ML VIAL SQ SCH ×4 (06:27→21:05)
[2019-03-21] MEDS: LEVOTHYROXINE 112 MCG TAB PO SCH (06:27)
[2019-03-21 07:33] LABS: Albumin 2.9 g/dL (3.5-5.0); Calcium 7.7 mg/dL (8.4-10.2); Potassium 4.4 mmol/L (3.5-5.1); Total Bilirubin 0.3 mg/dL (0.2-1.3); Total Protein 5.7 g/dL (6.3-8.2)
[2019-03-21] MEDS: ATORVASTATIN 20 MG TAB PO SCH (08:45)
[2019-03-21] MEDS: hydrALAZINE HCL 50 MG TAB PO SCH ×3 (08:45→20:51)
[2019-03-21] MEDS: CITALOPRAM HYDROBROMIDE 20 MG TAB PO SCH (08:45)
[2019-03-21] MEDS: DILTIAZEM ORAL 60 MG TAB PO SCH ×2 (08:45→20:51)
[2019-03-21] MEDS: oxyCODONE-APAP 10-325MG 1 EACH TAB PO PRN ×2 (08:49→17:34)
[2019-03-21] MEDS: IPRATROPIUM-ALBUTEROL 3 ML NEB INHALATION SCH ×3 (08:49→20:41)
[2019-03-21] MEDS ORDERED: FUROSEMIDE 10 MG/ML 10 ML VIAL IV STA (11:31)
--- NOTE | 2019-03-21 11:32 | P.PN ---
Subjective Patient is seen in follow-up for acute kidney injury on chronic kidney disease. Renal function only mildly improved. Creatinine 5.19 today. She has been voiding. No vomiting or diarrhea. Admits to edema in her lower extremities. Vital signs are stable. General: The patient appeared well nourished and normally developed. HEENT: Head exam is unremarkable. Neck is without jugular venous distension. LUNGS: Lungs are clear to auscultation and percussion. Breath sounds decreased. HEART: Rate and Rhythm are regular. First and second heart sounds normal. No murmurs, rubs or gallops. ABDOMEN: Abdominal exam reveals normal bowel sounds. Non-tender and non- distended. No evidence of peritonitis. EXTREMITITES: 1+ edema. Objective - Vital Signs Vital signs: Vital Signs Temp 97.4 F L 03/21/19 03:08 Pulse 86 03/21/19 08:00 Resp 16 03/21/19 08:00 BP 164/86 03/21/19 08:00 Pulse Ox 94 L 03/21/19 08:00 Intake & Output 03/20/19 03/21/19 03/21/19 18:59 06:59 18:59 Intake Total 360 120 Output Total 900 1150 600 Balance -540 -1150 -480 Weight 117.6 kg Intake: Oral 360 120 Output: Urine 900 1150 600 Other: Voiding Method Toilet Toilet Toilet # Voids 1 1 - Labs CBC & Chem 7: 03/18/19 15:00 03/21/19 06:11 Labs: Abnormal Lab Results - Last 24 Hours (Table) 03/20/19 03/20/19 03/20/19 Range/Units 12:00 16:33 20:07 Carbon Dioxide (22-30) mmol/L BUN (7-17) mg/dL Creatinine (0.52-1.04) mg/dL Glucose (74-99) mg/dL POC Glucose (mg/dL) 226 H 216 H 223 H (75-99) mg/dL Calcium (8.4-10.2) mg/dL Total Protein (6.3-8.2) g/dL Albumin (3.5-5.0) g/dL 03/21/19 03/21/19 Range/Units 06:04 06:11 Carbon Dioxide 21 L (22-30) mmol/L BUN 61 H (7-17) mg/dL Creatinine 5.19 H (0.52-1.04) mg/dL Glucose 113 H (74-99) mg/dL POC Glucose (mg/dL) 138 H (75-99) mg/dL Calcium 7.7 L (8.4-10.2) mg/dL Total Protein 5.7 L (6.3-8.2) g/dL Albumin 2.9 L (3.5-5.0) g/dL Assessment and Plan Plan: Assessment: 1. Acute kidney injury secondary to ATN secondary to intravascular volume depletion from vomiting and poor oral intake and further worsened with the use of diuretics and lisinopril. Creatinine 6.06 on admission and is 5.19 today. 2. Chronic kidney disease stage IV secondary to diabetic kidney disease with baseline creatinine near 2.2. 3. Hyperkalemia secondary to acute kidney injury, metabolic acidosis and use of lisinopril. Resolved. 4. Metabolic acidosis secondary to acute kidney injury. Improving. 5. Insulin-dependent diabetes mellitus. 6. Hypertension with chronic kidney disease. 7. Chronic kidney disease mineral bone disease maintained on calcitriol. 8. Lower extremity edema. Plan: Discontinue bicarbonate drip. Lasix 80 mg IV once today. Strict is and os. Continue to hold lisinopril. Continue to monitor renal function and urine output. I discussed with the patient in detail regarding the potential need to start renal replacement therapy this admission as her renal function hasn't improved much despite receiving IV fluids. Patient states she wants to wait another 24 hours to see if her renal function improves further and will then decide.
[2019-03-21 12:35] LABS: Glucose,Whole Blood 224 mg/dL (75-99)
[2019-03-21 17:09] LABS: Glucose,Whole Blood 122 mg/dL (75-99)
[2019-03-21 20:12] LABS: Glucose,Whole Blood 155 mg/dL (75-99)
--- NOTE | 2019-03-21 20:47 | P.PN ---
Progress Note - Text Progress Note Date: 03/21/19 Chief Complaint: Tired History of presenting complaint: This is a pleasant [address] Rizvi. Chronic stable medical conditions include hypertension, hyperlipidemia, depression, anxiety, osteoarthritis. Patient about a week ago felt that she cannot really speak felt out of sorts. EMS was called out. Follow Accu-Cheks to be 43. Received glucose and felt better. She did not go to the hospital. Since then she been having nausea vomiting and predominantly throwing up. She went to see a pain specialist Dr. Carrillo and she was again incoherent of that. Decided to send her to the ER. No abdominal pain. Has been having some chills. In the ER found to be in acute renal failure. Patient's baseline creatinine per nephrology rundown 2.2. Admitted with-episodes of hypoglycemia, symptomatic, acute kidney injury likely ATN. Oral hypoglycemics were discontinued. Today-still feels tired. Had an episode of vomiting. Some nausea. Not much improvement renal function. Laying bed. Review of systems: Was done for constitutional, cardiovascular, GI, pulmonary. relevant finding as above Active Medications Albuterol/Ipratropium (Duoneb 0.5 Mg-3 Mg/3 Ml Soln) 3 ml INHALATION RT-TID [facility] Last Admin: 03/21/19 20:41 Dose: 3 ml Documented by: Atorvastatin Calcium (Lipitor) 20 mg PO DAILY [facility] Last Admin: 03/21/19 08:45 Dose: 20 mg Documented by: Bisacodyl (Dulcolax) 10 mg PO DAILY PRN PRN Reason: Constipation Last Admin: 03/20/19 20:48 Dose: 10 mg Documented by: Calcitriol (Rocaltrol) 0.5 mcg PO [facility] Citalopram Hydrobromide (Celexa) 40 mg PO DAILY [facility] Last Admin: 03/21/19 08:45 Dose: 40 mg Documented by: Cyanocobalamin (Vitamin B-12) 1,000 mcg PO [facility] Last Admin: 03/20/19 20:47 Dose: 1,000 mcg Documented by: Diltiazem HCl (Cardizem Oral) 120 mg PO BID [facility] Last Admin: 03/21/19 08:45 Dose: 120 mg Documented by: Enoxaparin Sodium (Lovenox) 30 mg SQ [facility] Last Admin: 03/20/19 20:48 Dose: 30 mg Documented by: Hydralazine HCl (Apresoline) 50 mg PO TID [facility] Last Admin: 03/21/19 17:35 Dose: 50 mg Documented by: Insulin Aspart (Novolog) 0 unit SQ [facility]; Protocol Last Admin: 03/21/19 17:33 Dose: Not Given Documented by: Levothyroxine Sodium (Synthroid) 112 mcg PO DAILY@0630 [facility] Last Admin: 03/21/19 06:27 Dose: 112 mcg Documented by: Ondansetron HCl (Zofran) 4 mg IVP Q6HR PRN PRN Reason: Nausea And Vomiting Last Admin: 03/20/19 07:03 Dose: 4 mg Documented by: Oxycodone/Acetaminophen (Percocet 10-325) 1 each PO TID PRN PRN Reason: Pain Last Admin: 03/21/19 17:34 Dose: 1 each Documented by: Physical examination: VITAL SIGNS: 97.4-80-17-159/74-97% on room air GENERAL: Laying in bed, awake, but tired EYES: Pupils equal. Conjunctiva normal. HEENT: External appearance of nose and ears normal, oral cavity grossly normal. NECK: JVD not raised; masses not palpable. HEART: First and second heart sounds are normal; no edema. LUNGS: Respiratory rate normal; clear to auscultation. ABDOMEN: Soft, nontender, liver spleen not palpable, no masses palpable. PSYCH: Alert and oriented x3; mood and affect narda MUSCULOSKELETAL: Evidence of OA especially in the hands l. NEUROLOGICAL: Cranial nerves grossly intact; no facial asymmetry, power and sensation grossly intact. INVESTIGATIONS, reviewed in the clinical context: Potassium 4.4 bun 61 creatinine 5.19 [id number] Previous testing White count 6.5 hemoglobin 11.2 platelets 293 pressure 5.7 bun 70 creatinine 6.06 Baseline creatinine supposed to be 2.2 UA positive for leukoesterase, WBC Urine drug screen positive for oxycodone EKG tracing personally reviewed by me shows-sinus rhythm Chest x-ray film personally reviewed by me-elevated right diaphragm, lung marlow are clear Computed tomography scan of the brain-lung marlow clear Assessment: -Diabetes mellitus type 2 uncontrolled with episodes of hypoglycemia, symptomatic, improving -Acute kidney injury likely ATN with a contribution from patient being on RAFAEL inhibitor Lasix, slow to improve -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 Patient will need renal replacement therapy. Earlier nephrology had spoken with the patient. She was on 24 hours. She also been vomiting today. Repeat labs in the morning.
[2019-03-21] MEDS: ENOXAPARIN 30 MG/0.3 ML SYRINGE SQ SCH (20:52)
[2019-03-21] MEDS: CYANOCOBALAMIN 500 MCG TAB PO SCH (20:52)
[2019-03-22] MEDS: oxyCODONE-APAP 10-325MG 1 EACH TAB PO PRN ×3 (01:19→18:10)
[2019-03-22 06:01] LABS: Glucose,Whole Blood 124 mg/dL (75-99)
[2019-03-22] MEDS: INSULIN ASPART (NovoLOG) 100 UNIT/ML VIAL SQ SCH ×4 (06:02→21:19)
[2019-03-22] MEDS: LEVOTHYROXINE 112 MCG TAB PO SCH (06:04)
[2019-03-22 07:02] LABS: Calcium 7.8 mg/dL (8.4-10.2); Magnesium 1.9 mg/dL (1.6-2.3); Potassium 4.3 mmol/L (3.5-5.1)
[2019-03-22] MEDS: DILTIAZEM ORAL 60 MG TAB PO SCH ×2 (08:28→19:50)
[2019-03-22] MEDS: ONDANSETRON 4 MG/2 ML VIAL IVP PRN ×2 (08:28→20:02)
[2019-03-22] MEDS: hydrALAZINE HCL 50 MG TAB PO SCH ×3 (08:29→19:53)
[2019-03-22] MEDS: ATORVASTATIN 20 MG TAB PO SCH (08:29)
[2019-03-22] MEDS: BISACODYL 5 MG TABLET.DR PO PRN (08:29)
[2019-03-22] MEDS: CITALOPRAM HYDROBROMIDE 20 MG TAB PO SCH (08:29)
[2019-03-22] MEDS: IPRATROPIUM-ALBUTEROL 3 ML NEB INHALATION SCH ×3 (08:41→20:46)
--- NOTE | 2019-03-22 11:34 | P.PN ---
Subjective Progress Note Date: 03/22/19 Follow-up for acute kidney injury. Good urine output. No nausea vomiting diarrhea no asterixis. She has lower extremity edema. Objective - Vital Signs Vital signs: Vital Signs Temp 98.0 F 03/22/19 04:00 Pulse 70 03/22/19 08:56 Resp 16 03/22/19 11:17 BP 165/72 03/22/19 08:00 Pulse Ox 95 03/22/19 08:00 Intake & Output 03/21/19 03/22/19 03/22/19 18:59 06:59 18:59 Intake Total 600 480 240 Output Total 1826 1800 Balance -1226 -1320 240 Weight 118.2 kg Intake: Intake, IV Titration 480 Amount Dextrose 5% in Water 1, 480 000 ml @ 80 mls/hr IV . [id number] with Sodium Bicarb (1 Meq/ml) 150 ml Rx#:[id number] Oral 600 240 Output: Urine 1826 1800 Other: Voiding Method Toilet Toilet # Voids 1 - Exam No acute distress S1-S2 heard Lungs clear Abdomen soft Edema - Labs CBC & Chem 7: 03/18/19 15:00 03/22/19 05:51 Labs: Abnormal Lab Results - Last 24 Hours (Table) 03/21/19 03/21/19 03/21/19 Range/Units 12:30 17:06 20:10 Sodium (137-145) mmol/L BUN (7-17) mg/dL Creatinine (0.52-1.04) mg/dL Glucose (74-99) mg/dL POC Glucose (mg/dL) 224 H 122 H 155 H (75-99) mg/dL Calcium (8.4-10.2) mg/dL 03/22/19 03/22/19 Range/Units 05:51 06:00 Sodium 134 L (137-145) mmol/L BUN 61 H (7-17) mg/dL Creatinine 5.23 H (0.52-1.04) mg/dL Glucose 110 H (74-99) mg/dL POC Glucose (mg/dL) 124 H (75-99) mg/dL Calcium 7.8 L (8.4-10.2) mg/dL Assessment and Plan Assessment: #1 nonoliguric acute kidney injury secondary to hemodynamic ATN. Creatinine stable. #2 chronic kidney disease stage IV secondary to diabetic nephropathy with a baseline creatinine of 2.2. #3 hypertension with chronic kidney disease #4 volume overload with 11 pound weight gain since admission #5 insulin-dependent diabetes #6 hypervolemic hyponatremia Plan: #1 start diuretics Lasix 60 mg IV twice a day #2 monitor renal function closely #3 no acute indication for renal replacement therapy today. Repeat blood work tomorrow, Plan hemodialysis inpatient versus outpatient based on the labs and symptoms.
[2019-03-22 12:17] LABS: Glucose,Whole Blood 179 mg/dL (75-99)
[2019-03-22] MEDS: FUROSEMIDE 10 MG/ML 10 ML VIAL IV SCH ×2 (12:25→19:51)
[2019-03-22 17:03] LABS: Glucose,Whole Blood 220 mg/dL (75-99)
[2019-03-22] MEDS: CYANOCOBALAMIN 500 MCG TAB PO SCH (19:50)
[2019-03-22] MEDS: ENOXAPARIN 30 MG/0.3 ML SYRINGE SQ SCH (19:50)
[2019-03-22 20:52] LABS: Glucose,Whole Blood 164 mg/dL (75-99)
--- NOTE | 2019-03-22 21:56 | P.PN ---
Progress Note - Text Progress Note Date: 03/22/19 Chief Complaint: Tired History of presenting complaint: This is a pleasant [address] Rizvi. Chronic stable medical conditions include hypertension, hyperlipidemia, depression, anxiety, osteoarthritis. Patient about a week ago felt that she cannot really speak felt out of sorts. EMS was called out. Follow Accu-Cheks to be 43. Received glucose and felt better. She did not go to the hospital. Since then she been having nausea vomiting and predominantly throwing up. She went to see a pain specialist Dr. Carrillo and she was again incoherent of that. Decided to send her to the ER. No abdominal pain. Has been having some chills. In the ER found to be in acute renal failure. Patient's baseline creatinine per nephrology rundown 2.2. Admitted with-episodes of hypoglycemia, symptomatic, acute kidney injury likely ATN. Oral hypoglycemics were discontinued. Today-patient can use to feel weak tired rundown. Patient's friend with whom she lives is also present. Nausea present. Review of systems: Was done for constitutional, cardiovascular, GI, pulmonary. relevant finding as above Active Medications Albuterol/Ipratropium (Duoneb 0.5 Mg-3 Mg/3 Ml Soln) 3 ml INHALATION RT-TID [facility] Last Admin: 03/22/19 20:46 Dose: 3 ml Documented by: Atorvastatin Calcium (Lipitor) 20 mg PO DAILY [facility] Last Admin: 03/22/19 08:29 Dose: 20 mg Documented by: Bisacodyl (Dulcolax) 10 mg PO DAILY PRN PRN Reason: Constipation Last Admin: 03/22/19 08:29 Dose: 10 mg Documented by: Calcitriol (Rocaltrol) 0.5 mcg PO LOBO [facility] Citalopram Hydrobromide (Celexa) 40 mg PO DAILY [facility] Last Admin: 03/22/19 08:29 Dose: 40 mg Documented by: Cyanocobalamin (Vitamin B-12) 1,000 mcg PO [facility] Last Admin: 03/22/19 19:50 Dose: 1,000 mcg Documented by: Diltiazem HCl (Cardizem Oral) 120 mg PO BID [facility] Last Admin: 03/22/19 19:50 Dose: 120 mg Documented by: Enoxaparin Sodium (Lovenox) 30 mg SQ [facility] Last Admin: 03/22/19 19:50 Dose: 30 mg Documented by: Furosemide (Lasix) 60 mg IV Q12HR [facility] Last Admin: 03/22/19 19:51 Dose: 60 mg Documented by: Hydralazine HCl (Apresoline) 50 mg PO TID [facility] Last Admin: 03/22/19 19:53 Dose: Not Given Documented by: Insulin Aspart (Novolog) 0 unit SQ [facility]; Protocol Last Admin: 03/22/19 21:19 Dose: 2 unit Documented by: Levothyroxine Sodium (Synthroid) 112 mcg PO DAILY@0630 [facility] Last Admin: 03/22/19 06:04 Dose: 112 mcg Documented by: Ondansetron HCl (Zofran) 4 mg IVP Q6HR PRN PRN Reason: Nausea And Vomiting Last Admin: 03/22/19 20:02 Dose: 4 mg Documented by: Oxycodone/Acetaminophen (Percocet 10-325) 1 each PO TID PRN PRN Reason: Pain Last Admin: 03/22/19 18:10 Dose: 1 each Documented by: Physical examination: VITAL SIGNS: Afebrile, 79, 16, 154/69, 94% on room air GENERAL: Sitting at the edge of the bed, tired EYES: Pupils equal. Conjunctiva normal. HEENT: External appearance of nose and ears normal, oral cavity grossly normal. NECK: JVD not raised; masses not palpable. HEART: First and second heart sounds are normal; no edema. LUNGS: Respiratory rate normal; clear to auscultation. ABDOMEN: Soft, nontender, liver spleen not palpable, no masses palpable. PSYCH: Alert and oriented x3; mood and affect narda MUSCULOSKELETAL: Evidence of OA especially in the hands l. INVESTIGATIONS, reviewed in the clinical context: Potassium 4.3 bun 61 crit 5.23 Previous testing White count 6.5 hemoglobin 11.2 platelets 293 pressure 5.7 bun 70 creatinine 6.06 Baseline creatinine supposed to be 2.2 UA positive for leukoesterase, WBC Urine drug screen positive for oxycodone EKG tracing personally reviewed by me shows-sinus rhythm Chest x-ray film personally reviewed by me-elevated right diaphragm, lung marlow are clear Computed tomography scan of the brain-lung marlow clear Assessment: -Diabetes mellitus type 2 uncontrolled with episodes of hypoglycemia, symptomatic, improving -Acute kidney injury likely ATN with a contribution from patient being on RAFAEL inhibitor Lasix, slow to improve -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 I had a very lengthy discussion with the patient in the present off her friend. Patient is finally decided to proceed with hemodialysis. I did speak to from nephrology. When I spoke to Dr. Montano from [facility]. He will come in to put a hemodialysis temporary catheter. Hemodialysis should start tomorrow. Several questions were answered. Total time spent was about 45 minutes with over 30 minutes of discussion
--- NOTE | 2019-03-22 23:10 | CONS ---
CONSULTATION Ms. Mohr was seen on consultation for placement of the dialysis catheter. The patient has a history of acute kidney injury secondary to ATN. The patient has some history of vomiting and poor intake. The patient has also chronic kidney disease secondary to diabetes. The patient also has history of hyperkalemia, metabolic acidosis, insulin-dependent diabetes mellitus. The patient was seen in her room. Patient in sitting position. We were planning to place the dialysis catheter, but the patient is eating dinner. PHYSICAL EXAMINATION: NECK: Supple. Trachea central. CHEST: Clear. ABDOMEN: Soft. Mild obesity noted. The femorals are 1+. PLAN: Placement of the dialysis catheter. N.p.o. midnight. We will place early in the morning. MMODL / IJN: [id number] /
[2019-03-23] MEDS: oxyCODONE-APAP 10-325MG 1 EACH TAB PO PRN ×3 (02:06→20:53)
[2019-03-23] MEDS: LEVOTHYROXINE 112 MCG TAB PO SCH (05:19)
[2019-03-23 05:38] LABS: Glucose,Whole Blood 128 mg/dL (75-99)
[2019-03-23] MEDS: INSULIN ASPART (NovoLOG) 100 UNIT/ML VIAL SQ SCH ×4 (05:45→22:17)
[2019-03-23 07:10] LABS: Potassium 4.4 mmol/L (3.5-5.1)
[2019-03-23] MEDS: IPRATROPIUM-ALBUTEROL 3 ML NEB INHALATION SCH ×3 (07:36→20:28)
[2019-03-23] MEDS ORDERED: fentaNYL (PF) 50 MCG/ML 2 ML AMP IV ONE (08:10)
[2019-03-23] MEDS: MIDAZOLAM 2 MG/2 ML VIAL IVP ONE ×2 (08:10→08:14)
[2019-03-23] MEDS: LIDOCAINE 1% INJ 10MG/ML (20 ML MDV) SQ ONE ×2 (08:13→08:17)
[2019-03-23] MEDS ORDERED: SODIUM CHLORIDE 0.9% 250 ML IV ONE (08:14)
[2019-03-23] MEDS ORDERED: LIDOCAINE 1% INJ 10MG/ML (20 ML MDV) SQ ONE (08:41)
[2019-03-23] MEDS ORDERED: CALCITRIOL 0.25 MCG CAP PO SCH (09:00)
--- NOTE | 2019-03-23 10:41 | XR ---
EXAMINATION TYPE: XR chest 1V DATE OF EXAM: 03/23/2019 HISTORY: permacath placement. REFERENCE: Previous study dated 03/18/2019. FINDINGS: A large-bore, double-lumen catheter is been inserted via a right internal jugular approach. Its tip is in the right atrium. I do not see evidence of pneumothorax. There is vascular congestion and pulmonary edema. This appears to have worsened slightly. There is co nfluent airspace disease the right lung base. This may represent confluent edema or pneumonia. The he art is enlarged. There are bilateral effusions. IMPRESSION: 1. SATISFACTORY DIALYSIS CATHETER PLACEMENT. 2. WORSENING CHANGES OF HEART FAILURE.
--- NOTE | 2019-03-23 11:22 | P.PN ---
Subjective Progress Note Date: 03/23/19 Follow-up for acute kidney injury. Good urine output. Nausea and slight vomiting. Permacath was placed today. Objective - Vital Signs Vital signs: Vital Signs Temp 96.8 F L 03/23/19 10:26 Pulse 88 03/23/19 11:11 Resp 16 03/23/19 10:26 BP 162/75 03/23/19 10:26 Pulse Ox 92 L 03/23/19 10:26 Intake & Output 03/22/19 03/23/19 03/23/19 18:59 06:59 18:59 Intake Total 477 240 50 Output Total 1150 550 Balance 477 -060 -500 Weight 115.8 kg Intake: IV 50 Oral 477 240 0 Output: Urine 1150 550 Other: Voiding Method Toilet Toilet - Exam No acute distress S1-S2 heard, right jugular permacath Lungs clear Abdomen soft Edema - Labs CBC & Chem 7: 03/18/19 15:00 03/23/19 06:25 Labs: Abnormal Lab Results - Last 24 Hours (Table) 03/22/19 03/22/19 03/22/19 Range/Units 12:12 16:57 20:49 Sodium (137-145) mmol/L BUN (7-17) mg/dL Creatinine (0.52-1.04) mg/dL Glucose (74-99) mg/dL POC Glucose (mg/dL) 179 H 220 H 164 H (75-99) mg/dL Calcium (8.4-10.2) mg/dL 03/23/19 03/23/19 Range/Units 05:37 06:25 Sodium 134 L (137-145) mmol/L BUN 63 H (7-17) mg/dL Creatinine 5.51 H (0.52-1.04) mg/dL Glucose 116 H (74-99) mg/dL POC Glucose (mg/dL) 128 H (75-99) mg/dL Calcium 8.0 L (8.4-10.2) mg/dL Assessment and Plan Assessment: #1 nonoliguric acute kidney injury secondary to hemodynamic ATN. #2 chronic kidney disease stage IV secondary to diabetic nephropathy with a baseline creatinine of 2.2. #3 hypertension with chronic kidney disease #4 volume overload with 11 pound weight gain since admission #5 insulin-dependent diabetes #6 hypervolemic hyponatremia Plan: #1 start hemodialysis today 2 hours 1-2 L UF 2K bath and 28 bicarb. Plan dialysis again tomorrow. #2 continue with Lasix 60 mg IV twice a day #3 outpatient dialysis placement HD at [place]
[2019-03-23 11:59] LABS: Glucose,Whole Blood 242 mg/dL (75-99)
--- NOTE | 2019-03-23 14:12 | PCN ---
PROCEDURE NOTE PREOP: Acute on chronic renal failure. POSTOP DIAGNOSIS: Acute on chronic renal failure. PROCEDURE PERFORMED: Placement of ultrasound guided 19 cm dialysis catheter. SEDATION: Sedation time is 32 minutes. DESCRIPTION OF PROCEDURE: This patient was brought to the bolt labeler. Right side of the neck and chest was prepped and drapes applied in the usual sterile manner. 1% lidocaine infiltrated into the neck and chest area with IV sedation. Ultrasound-guided micropuncture into the right jugular vein. Micropuncture guidewire was passed and 4-[place] dilator advanced on top of the guidewire then we passed a regular guidewire, then advanced the dilator and sheath on the top of the guidewire. Through the sheath, we introduced the dialysis catheter. Tip of the catheter in superior vena cava and atrium flushed with heparin saline and hep-locked and secured with 3-0 Vicryl. Dressing applied. Patient tolerated the procedure well. MMODL / IJN: [id number] /
[2019-03-23] MEDS: DILTIAZEM ORAL 60 MG TAB PO SCH ×2 (14:41→22:14)
[2019-03-23] MEDS: FUROSEMIDE 10 MG/ML 10 ML VIAL IV SCH ×2 (14:41→22:16)
[2019-03-23] MEDS: CITALOPRAM HYDROBROMIDE 20 MG TAB PO SCH (14:41)
[2019-03-23] MEDS: hydrALAZINE HCL 50 MG TAB PO SCH ×3 (14:41→22:16)
[2019-03-23] MEDS: ATORVASTATIN 20 MG TAB PO SCH (14:41)
[2019-03-23] MEDS: BISACODYL 5 MG TABLET.DR PO PRN (16:18)
[2019-03-23 16:54] LABS: Glucose,Whole Blood 249 mg/dL (75-99)
[2019-03-23 20:35] LABS: Glucose,Whole Blood 138 mg/dL (75-99)
--- NOTE | 2019-03-23 21:19 | P.PN ---
Progress Note - Text Progress Note Date: 03/23/19 Chief Complaint: Tired History of presenting complaint: This is a pleasant [address] Rizvi. Chronic stable medical conditions include hypertension, hyperlipidemia, depression, anxiety, osteoarthritis. Patient about a week ago felt that she cannot really speak felt out of sorts. EMS was called out. Follow Accu-Cheks to be 43. Received glucose and felt better. She did not go to the hospital. Since then she been having nausea vomiting and predominantly throwing up. She went to see a pain specialist Dr. Carrillo and she was again incoherent of that. Decided to send her to the ER. No abdominal pain. Has been having some chills. In the ER found to be in acute renal failure. Patient's baseline creatinine per nephrology rundown 2.2. Admitted with-episodes of hypoglycemia, symptomatic, acute kidney injury likely ATN. Oral hypoglycemics were discontinued. Today-patient had a hemodialysis catheter placed this morning. Did get first round of hemodialysis today. Patient's appearing more relaxed today. Review of systems: Was done for constitutional, cardiovascular, GI, pulmonary. relevant finding as above Active Medications Albuterol/Ipratropium (Duoneb 0.5 Mg-3 Mg/3 Ml Soln) 3 ml INHALATION RT-TID [facility] Last Admin: 03/23/19 20:28 Dose: Not Given Documented by: Atorvastatin Calcium (Lipitor) 20 mg PO DAILY [facility] Last Admin: 03/23/19 14:41 Dose: 20 mg Documented by: Bisacodyl (Dulcolax) 10 mg PO DAILY PRN PRN Reason: Constipation Last Admin: 03/23/19 16:18 Dose: 10 mg Documented by: Calcitriol (Rocaltrol) 0.5 mcg PO LOBO [facility] Last Admin: 03/23/19 14:40 Dose: 0.5 mcg Documented by: Citalopram Hydrobromide (Celexa) 40 mg PO DAILY [facility] Last Admin: 03/23/19 14:41 Dose: 40 mg Documented by: Cyanocobalamin (Vitamin B-12) 1,000 mcg PO HS [facility] Last Admin: 03/22/19 19:50 Dose: 1,000 mcg Documented by: Diltiazem HCl (Cardizem Oral) 120 mg PO BID [facility] Last Admin: 03/23/19 14:41 Dose: 120 mg Documented by: Enoxaparin Sodium (Lovenox) 30 mg SQ HS [facility] Last Admin: 03/22/19 19:50 Dose: 30 mg Documented by: Furosemide (Lasix) 60 mg IV Q12HR [facility] Last Admin: 03/23/19 14:41 Dose: 60 mg Documented by: Hydralazine HCl (Apresoline) 50 mg PO TID [facility] Last Admin: 03/23/19 16:18 Dose: 50 mg Documented by: Insulin Aspart (Novolog) 0 unit SQ [facility]; Protocol Last Admin: 03/23/19 17:24 Dose: 5 unit Documented by: Levothyroxine Sodium (Synthroid) 112 mcg PO DAILY@0630 [facility] Last Admin: 03/23/19 05:19 Dose: 112 mcg Documented by: Ondansetron HCl (Zofran) 4 mg IVP Q6HR PRN PRN Reason: Nausea And Vomiting Last Admin: 03/22/19 20:02 Dose: 4 mg Documented by: Oxycodone/Acetaminophen (Percocet 10-325) 1 each PO TID PRN PRN Reason: Pain Last Admin: 03/23/19 20:53 Dose: 1 each Documented by: Physical examination: VITAL SIGNS: 97.2-84-16-135/72-98% on room air GENERAL: Laying in bed, more comfortable EYES: Pupils equal. Conjunctiva normal. HEENT: External appearance of nose and ears normal, oral cavity grossly normal. NECK: JVD not raised; masses not palpable. HEART: First and second heart sounds are normal; no edema. LUNGS: Respiratory rate normal; clear to auscultation. ABDOMEN: Soft, nontender, liver spleen not palpable, no masses palpable. PSYCH: Alert and oriented x3; mood and affect narda MUSCULOSKELETAL: Evidence of OA especially in the hands l. INVESTIGATIONS, reviewed in the clinical context: Potassium 4.4 bun 63 creatinine 5.5 Previous testing White count 6.5 hemoglobin 11.2 platelets 293 pressure 5.7 bun 70 creatinine 6.06 Baseline creatinine supposed to be 2.2 UA positive for leukoesterase, WBC Urine drug screen positive for oxycodone EKG tracing personally reviewed by me shows-sinus rhythm Chest x-ray film personally reviewed by me-elevated right diaphragm, lung marlow are clear Computed tomography scan of the brain-lung marlow clear Assessment: -Diabetes mellitus type 2 uncontrolled with episodes of hypoglycemia, symptomatic, corrected -Hemodialysis catheter placed today on March 23-. 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 Feeling better. More hemodialysis tomorrow. Care was discussed.
[2019-03-23] MEDS: ENOXAPARIN 30 MG/0.3 ML SYRINGE SQ SCH (22:17)
[2019-03-23] MEDS: CYANOCOBALAMIN 500 MCG TAB PO SCH (22:17)
[2019-03-24] MEDS: ONDANSETRON 4 MG/2 ML VIAL IVP PRN (04:22)
[2019-03-24] MEDS: oxyCODONE-APAP 10-325MG 1 EACH TAB PO PRN ×3 (05:28→21:47)
[2019-03-24] MEDS: LEVOTHYROXINE 112 MCG TAB PO SCH (05:28)
[2019-03-24 06:00] LABS: Glucose,Whole Blood 136 mg/dL (75-99)
[2019-03-24] MEDS: INSULIN ASPART (NovoLOG) 100 UNIT/ML VIAL SQ SCH ×4 (06:47→21:50)
--- NOTE | 2019-03-24 08:20 | IR ---
EXAMINATION TYPE: IR cvc insert central tunneled DATE OF EXAM: 03/23/2019 COMPARISON: NONE HISTORY: Fluoroscopy time. Fluoroscopy was provided to the referring clinician.
[2019-03-24] MEDS: DILTIAZEM ORAL 60 MG TAB PO SCH ×2 (08:59→21:48)
[2019-03-24] MEDS: CITALOPRAM HYDROBROMIDE 20 MG TAB PO SCH (08:59)
[2019-03-24] MEDS: hydrALAZINE HCL 50 MG TAB PO SCH ×3 (08:59→21:48)
[2019-03-24] MEDS: FUROSEMIDE 10 MG/ML 10 ML VIAL IV SCH ×2 (08:59→21:48)
[2019-03-24] MEDS: ATORVASTATIN 20 MG TAB PO SCH (08:59)
[2019-03-24] MEDS: IPRATROPIUM-ALBUTEROL 3 ML NEB INHALATION SCH ×3 (10:07→20:46)
[2019-03-24 11:22] LABS: Hepatitis B Surface AB- Quant 3.5 mIU/mL; Hepatitis B Surface Antibody Non-Reactive (Non-Reactive)
[2019-03-24 11:59] LABS: Glucose,Whole Blood 174 mg/dL (75-99)
--- NOTE | 2019-03-24 15:27 | P.PN ---
Progress Note - Text Progress Note Date: 03/24/19 Chief Complaint: Tired History of presenting complaint: This is a pleasant [address] Rizvi. Chronic stable medical conditions include hypertension, hyperlipidemia, depression, anxiety, osteoarthritis. Patient about a week ago felt that she cannot really speak felt out of sorts. EMS was called out. Follow Accu-Cheks to be 43. Received glucose and felt better. She did not go to the hospital. Since then she been having nausea vomiting and predominantly throwing up. She went to see a pain specialist Dr. Carrillo and she was again incoherent of that. Decided to send her to the ER. No abdominal pain. Has been having some chills. In the ER found to be in acute renal failure. Patient's baseline creatinine per nephrology rundown 2.2. Hospital course: Admitted with-episodes of hypoglycemia, symptomatic, acute kidney injury likely ATN. Oral hypoglycemics were discontinued. Kidney function progressed. Patient symptomatic with uremic symptoms. Decision made to proceed with hemodialysis after discussing with the patient. Today-getting hemodialyzed again today. 2 L being removed. Starting a diet. Make urine. Review of systems: Was done for constitutional, cardiovascular, GI, pulmonary. relevant finding as above Active Medications Albuterol/Ipratropium (Duoneb 0.5 Mg-3 Mg/3 Ml Soln) 3 ml INHALATION RT-TID [facility] Last Admin: 03/24/19 14:05 Dose: 3 ml Documented by: Atorvastatin Calcium (Lipitor) 20 mg PO DAILY [facility] Last Admin: 03/24/19 08:59 Dose: 20 mg Documented by: Bisacodyl (Dulcolax) 10 mg PO DAILY PRN PRN Reason: Constipation Last Admin: 03/23/19 16:18 Dose: 10 mg Documented by: Calcitriol (Rocaltrol) 0.5 mcg PO LOBO [facility] Last Admin: 03/23/19 14:40 Dose: 0.5 mcg Documented by: Citalopram Hydrobromide (Celexa) 40 mg PO DAILY [facility] Last Admin: 03/24/19 08:59 Dose: 40 mg Documented by: Cyanocobalamin (Vitamin B-12) 1,000 mcg PO HS [facility] Last Admin: 03/23/19 22:17 Dose: 1,000 mcg Documented by: Diltiazem HCl (Cardizem Oral) 120 mg PO BID [facility] Last Admin: 03/24/19 08:59 Dose: 120 mg Documented by: Enoxaparin Sodium (Lovenox) 30 mg SQ HS [facility] Last Admin: 03/23/19 22:17 Dose: 30 mg Documented by: Furosemide (Lasix) 60 mg IV Q12HR [facility] Last Admin: 03/24/19 08:59 Dose: 60 mg Documented by: Hydralazine HCl (Apresoline) 50 mg PO TID [facility] Last Admin: 03/24/19 08:59 Dose: 50 mg Documented by: Insulin Aspart (Novolog) 0 unit SQ [facility]; Protocol Last Admin: 03/24/19 12:29 Dose: 2 unit Documented by: Levothyroxine Sodium (Synthroid) 112 mcg PO DAILY@0630 [facility] Last Admin: 03/24/19 05:28 Dose: 112 mcg Documented by: Ondansetron HCl (Zofran) 4 mg IVP Q6HR PRN PRN Reason: Nausea And Vomiting Last Admin: 03/24/19 04:22 Dose: 4 mg Documented by: Oxycodone/Acetaminophen (Percocet 10-325) 1 each PO TID PRN PRN Reason: Pain Last Admin: 03/24/19 13:58 Dose: 1 each Documented by: Physical examination: VITAL SIGNS: 98, 72, 18, 117/63, 92% on room air GENERAL: Laying in bed, comfortable EYES: Pupils equal. Conjunctiva normal. HEENT: External appearance of nose and ears normal, oral cavity grossly normal. NECK: JVD not raised; masses not palpable. HEART: First and second heart sounds are normal; no edema. LUNGS: Respiratory rate normal; clear to auscultation. ABDOMEN: Soft, nontender, liver spleen not palpable, no masses palpable. PSYCH: Alert and oriented x3; mood and affect narda MUSCULOSKELETAL: Evidence of OA especially in the hands l. INVESTIGATIONS, reviewed in the clinical context: Potassium 4.4 bun 63 creatinine 5.5 Previous testing White count 6.5 hemoglobin 11.2 platelets 293 pressure 5.7 bun 70 creatinine 6.06 Baseline creatinine supposed to be 2.2 UA positive for leukoesterase, WBC Urine drug screen positive for oxycodone EKG tracing personally reviewed by me shows-sinus rhythm Chest x-ray film personally reviewed by me-elevated right diaphragm, lung marlow are clear Computed tomography scan of the brain-lung marlow clear Assessment: -Diabetes mellitus type 2 uncontrolled with episodes of hypoglycemia, symptomatic, corrected -Hemodialysis catheter placed on March 23-. 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 Second order hemodialysis today. Start the patient on Glucotrol 2.5 mg daily.
[2019-03-24 17:09] LABS: Glucose,Whole Blood 215 mg/dL (75-99)
[2019-03-24 18:23] LABS: Hepatitis B Surface Antigen Non-Reactive (Non-Reactive)
[2019-03-24 20:28] LABS: Glucose,Whole Blood 156 mg/dL (75-99)
--- NOTE | 2019-03-24 20:28 | PN ---
PROGRESS NOTE The patient is seen for followup for chronic kidney disease. She was started on dialysis over the weekend. The patient states that she is feeling somewhat better currently. She did have an element of acute kidney injury on top of chronic kidney disease with creatinine all the way up to 6.0 mg/dL. The patient states that she lives just about a mile from the [facility] and would like to go to the [facility] for her outpatient treatments. She continues to have urine output. PHYSICAL EXAMINATION: On examination, blood pressure is 134/73, heart rate 73 per minute. She is afebrile. EXAMINATION OF THE HEART: S1 and S2. EXAMINATION OF THE LUNGS: Bilateral breath sounds are heard. ABDOMEN: Abdomen is soft and nontender. Examination of the lower extremities shows edema 2+ bilaterally. ASSOCIATE CHEMIST examination is grossly intact. LABORATORY DATA: Laboratories show sodium 134, potassium 4.4, chloride 101, BUN 63, creatinine 5.5 today. ASSESSMENT: 1. Acute kidney injury on top of chronic kidney disease, currently hemodialysis- dependent. Patient will be maintained on outpatient dialysis and we will continue to monitor for recovery of renal function. 2. Chronic kidney disease secondary to diabetic nephropathy, NKF stage IV. Previous creatinine about 2.5 mg/dL. 3. Volume overload, improved post dialysis. Maintain on Lasix as well. 4. Type 2 diabetes. 5. Hypertension, currently stable. PLAN: We will plan for outpatient dialysis. Continue with IV Lasix. Plan for hemodialysis again on 03/26/2019. MMODL / IJN: [id number] /
[2019-03-24] MEDS: CYANOCOBALAMIN 500 MCG TAB PO SCH (21:47)
[2019-03-24] MEDS: ENOXAPARIN 30 MG/0.3 ML SYRINGE SQ SCH (21:50)
[2019-03-25] MEDS: ONDANSETRON 4 MG/2 ML VIAL IVP PRN ×2 (06:20→22:30)
[2019-03-25 06:23] LABS: Glucose,Whole Blood 143 mg/dL (75-99)
[2019-03-25] MEDS: LEVOTHYROXINE 112 MCG TAB PO SCH (06:29)
[2019-03-25] MEDS: INSULIN ASPART (NovoLOG) 100 UNIT/ML VIAL SQ SCH ×4 (06:53→22:12)
[2019-03-25] MEDS: oxyCODONE-APAP 10-325MG 1 EACH TAB PO PRN ×3 (06:53→22:12)
[2019-03-25] MEDS: IPRATROPIUM-ALBUTEROL 3 ML NEB INHALATION SCH ×3 (08:02→20:45)
[2019-03-25] MEDS: ATORVASTATIN 20 MG TAB PO SCH (10:17)
[2019-03-25] MEDS: CITALOPRAM HYDROBROMIDE 20 MG TAB PO SCH (10:18)
[2019-03-25] MEDS: DILTIAZEM ORAL 60 MG TAB PO SCH ×2 (10:19→22:11)
[2019-03-25] MEDS: FUROSEMIDE 10 MG/ML 10 ML VIAL IV SCH ×2 (10:19→22:11)
[2019-03-25] MEDS: hydrALAZINE HCL 50 MG TAB PO SCH ×3 (10:20→22:11)
[2019-03-25] MEDS: BISACODYL 5 MG TABLET.DR PO PRN (11:14)
[2019-03-25 11:30] VITALS: BMI 43.5
[2019-03-25 12:17] LABS: Glucose,Whole Blood 122 mg/dL (75-99)
[2019-03-25 12:32] LABS: Calcium 8.1 mg/dL (8.4-10.2); Potassium 4.1 mmol/L (3.5-5.1)
--- NOTE | 2019-03-25 12:55 | PN ---
PROGRESS NOTE Patient is seen for followup for chronic kidney disease and acute kidney injury. Patient is complaining of nausea. Her creatinine is down to 4.1 today. She has been dialyzed 2 days in a row and she is scheduled for hemodialysis again tomorrow. PHYSICAL EXAMINATION: This morning, blood pressure is 134/62, heart rate 80 per minute, she is afebrile. Examination of the heart S1, S2. Examination of the lungs, bilateral breath sounds are heard. Abdomen is soft, non-tender. Examination of the lower extremities shows no significant edema. COTTON WEIGHER exam grossly intact. LABS: Show sodium 132, potassium 4.1, chloride 96, BUN 43, creatinine 4.1. ASSESSMENT: 1. Chronic kidney disease with element of acute kidney injury, currently on hemodialysis. The patient has had urine output. She will need monitoring of renal function as outpatient for possible recovery to some degree. 2. Chronic kidney disease secondary to diabetic nephropathy and give stage IV previous creatinine about 2.5. 3. Volume overload currently improved. 4. Type 2 diabetes. 5. Hypertension. 6. Nausea, most likely from uremia. PLAN: Hemodialysis in a.m. Patient can be discharged tomorrow post dialysis to follow up as outpatient for hemodialysis. We will continue to monitor for possible recovery of renal function as outpatient. Patient should avoid any nephrotoxic medications including NSAIDs. MMODL / IJN: [id number] /
[2019-03-25 17:14] LABS: Glucose,Whole Blood 214 mg/dL (75-99)
--- NOTE | 2019-03-25 18:24 | P.PN ---
Progress Note - Text Progress Note Date: 03/25/19 Chief Complaint: Tired History of presenting complaint: This is a pleasant [address] Rizvi. Chronic stable medical conditions include hypertension, hyperlipidemia, depression, anxiety, osteoarthritis. Patient about a week ago felt that she cannot really speak felt out of sorts. EMS was called out. Follow Accu-Cheks to be 43. Received glucose and felt better. She did not go to the hospital. Since then she been having nausea vomiting and predominantly throwing up. She went to see a pain specialist Dr. Carrillo and she was again incoherent of that. Decided to send her to the ER. No abdominal pain. Has been having some chills. In the ER found to be in acute renal failure. Patient's baseline creatinine per nephrology rundown 2.2. Hospital course: Admitted with-episodes of hypoglycemia, symptomatic, acute kidney injury likely ATN. Oral hypoglycemics were discontinued. Kidney function progressed. Patient symptomatic with uremic symptoms. Decision made to proceed with hemodialysis after discussing with the patient. Today-feeling better. Occasional nausea. Less tired. No hemodialysis today. Review of systems: Was done for constitutional, cardiovascular, GI, pulmonary. relevant finding as above Active Medications Albuterol/Ipratropium (Duoneb 0.5 Mg-3 Mg/3 Ml Soln) 3 ml INHALATION RT-TID [facility] Last Admin: 03/25/19 12:18 Dose: 3 ml Documented by: Atorvastatin Calcium (Lipitor) 20 mg PO DAILY [facility] Last Admin: 03/25/19 10:17 Dose: 20 mg Documented by: Bisacodyl (Dulcolax) 10 mg PO DAILY PRN PRN Reason: Constipation Last Admin: 03/25/19 11:14 Dose: 10 mg Documented by: Calcitriol (Rocaltrol) 0.5 mcg PO LOBO [facility] Last Admin: 03/23/19 14:40 Dose: 0.5 mcg Documented by: Citalopram Hydrobromide (Celexa) 40 mg PO DAILY [facility] Last Admin: 03/25/19 10:18 Dose: 40 mg Documented by: Cyanocobalamin (Vitamin B-12) 1,000 mcg PO HS [facility] Last Admin: 03/24/19 21:47 Dose: 1,000 mcg Documented by: Diltiazem HCl (Cardizem Oral) 120 mg PO BID [facility] Last Admin: 03/25/19 10:19 Dose: 120 mg Documented by: Enoxaparin Sodium (Lovenox) 30 mg SQ HS [facility] Last Admin: 03/24/19 21:50 Dose: 30 mg Documented by: Furosemide (Lasix) 60 mg IV Q12HR [facility] Last Admin: 03/25/19 10:19 Dose: 60 mg Documented by: Glipizide (Glucotrol) 2.5 mg PO AC-BRKFST [facility] Last Admin: 03/25/19 06:55 Dose: 2.5 mg Documented by: Hydralazine HCl (Apresoline) 50 mg PO TID [facility] Last Admin: 03/25/19 15:33 Dose: 50 mg Documented by: Insulin Aspart (Novolog) 0 unit SQ [facility]; Protocol Last Admin: 03/25/19 17:15 Dose: 3 unit Documented by: Levothyroxine Sodium (Synthroid) 112 mcg PO DAILY@0630 [facility] Last Admin: 03/25/19 06:29 Dose: 112 mcg Documented by: Ondansetron HCl (Zofran) 4 mg IVP Q6HR PRN PRN Reason: Nausea And Vomiting Last Admin: 03/25/19 06:20 Dose: 4 mg Documented by: Oxycodone/Acetaminophen (Percocet 10-325) 1 each PO TID PRN PRN Reason: Pain Last Admin: 03/25/19 15:33 Dose: 1 each Documented by: Physical examination: VITAL SIGNS: 98.4-76-18-134/62-94% room air GENERAL: Propped up, comfortable EYES: Pupils equal. Conjunctiva normal. HEENT: External appearance of nose and ears normal, oral cavity grossly normal. NECK: JVD not raised; masses not palpable. HEART: First and second heart sounds are normal; no edema. LUNGS: Respiratory rate normal; clear to auscultation. ABDOMEN: Soft, nontender, liver spleen not palpable, no masses palpable. PSYCH: Alert and oriented x3; mood and affect narda MUSCULOSKELETAL: Evidence of OA especially in the hands l. INVESTIGATIONS, reviewed in the clinical context: Bun 43 creatinine 4.12 [id number] Previous testing White count 6.5 hemoglobin 11.2 platelets 293 pressure 5.7 bun 70 creatinine 6.06 Baseline creatinine supposed to be 2.2 UA positive for leukoesterase, WBC Urine drug screen positive for oxycodone EKG tracing personally reviewed by me shows-sinus rhythm Chest x-ray film personally reviewed by me-elevated right diaphragm, lung marlow are clear Computed tomography scan of the brain-lung marlow clear Assessment: -Diabetes mellitus type 2 uncontrolled with episodes of hypoglycemia, symptomatic, corrected. Resumed on Glucotrol 2.5 mg daily -Hemodialysis catheter placed on March 23-. 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 Discussed with case consultant. Possibly being scheduled for Sunday as outpatient. Discussed with Dr. Tran from nephrology. She'll get hemodialyzed tomorrow and should be able to be discharged. Patient's friend with whom she lives will drive her to initiate hemodialysis sessions.
[2019-03-25 20:55] LABS: Glucose,Whole Blood 153 mg/dL (75-99)
[2019-03-25] MEDS: CYANOCOBALAMIN 500 MCG TAB PO SCH (22:11)
[2019-03-25] MEDS: ENOXAPARIN 30 MG/0.3 ML SYRINGE SQ SCH (22:11)
[2019-03-26] MEDS: oxyCODONE-APAP 10-325MG 1 EACH TAB PO PRN ×2 (05:44→14:07)
[2019-03-26 06:16] LABS: Glucose,Whole Blood 126 mg/dL (75-99)
[2019-03-26] MEDS: INSULIN ASPART (NovoLOG) 100 UNIT/ML VIAL SQ SCH ×3 (06:17→17:42)
[2019-03-26] MEDS: LEVOTHYROXINE 112 MCG TAB PO SCH (06:48)
[2019-03-26] MEDS: IPRATROPIUM-ALBUTEROL 3 ML NEB INHALATION SCH ×2 (08:00→13:22)
[2019-03-26] MEDS: ONDANSETRON 4 MG/2 ML VIAL IVP PRN (08:22)
[2019-03-26] MEDS: ATORVASTATIN 20 MG TAB PO SCH (10:21)
[2019-03-26] MEDS: hydrALAZINE HCL 50 MG TAB PO SCH ×2 (10:22→17:42)
[2019-03-26] MEDS: DILTIAZEM ORAL 60 MG TAB PO SCH (10:22)
[2019-03-26] MEDS: BISACODYL 5 MG TABLET.DR PO PRN (10:23)
[2019-03-26] MEDS: CITALOPRAM HYDROBROMIDE 20 MG TAB PO SCH (10:33)
[2019-03-26] MEDS: FUROSEMIDE 10 MG/ML 10 ML VIAL IV SCH (10:34)
[2019-03-26 12:41] LABS: Glucose,Whole Blood 72 mg/dL (75-99)
[2019-03-26 12:58] LABS: Glucose,Whole Blood 114 mg/dL (75-99)
[2019-03-26 17:39] LABS: Glucose,Whole Blood 95 mg/dL (75-99)
[2019-03-26 18:20] VITALS: BP 172/75; PULSE 65; RESP 18; TEMP 97.6
--- NOTE | 2019-03-26 20:20 | PN ---
PROGRESS NOTE Patient is seen for followup for acute kidney injury on top of chronic kidney disease. She has been started on dialysis this admission. Patient states that overall she is feeling better, although she still has some nausea, but it is much better than on admission. She is scheduled for hemodialysis today, following which she can be discharged and continue with the outpatient dialysis. PHYSICAL EXAMINATION: On examination this morning, blood pressure was 152/69, heart rate 71 per minute. Patient is afebrile. EXAMINATION OF THE HEART: S1 and S2. EXAMINATION OF LUNGS: Decreased breath sounds at bases. ABDOMEN: Soft, non-tender. Examination of lower extremities shows no significant edema. JAVA DESIGNER exam is grossly intact. LABS: Labs from yesterday show sodium 132, potassium 4.1, BUN 43, serum creatinine 4.1 from 03/25/2019. ASSESSMENT: 1. Acute kidney injury on top of chronic kidney disease, currently hemodialysis- dependent. Patient will continue with hemodialysis as outpatient and we will continue to monitor for possible recovery of renal function. 2. Chronic kidney disease secondary to diabetic nephropathy, stage IV, with previous creatinine about 2.5. 3. Volume overload, now improved. 4. Hypertension. 5. Nausea, currently improved significantly, most likely from uremia. PLAN: Hemodialysis today, following which if patient feels well she can be discharged with plans to follow up as outpatient on hemodialysis. MMODL / IJN: [id number] /
--- NOTE | 2019-03-27 15:09 | P.DS ---
Providers Date of admission: 03/18/19 18:04 Expected date of discharge: 03/26/19 Attending physician: Duncan Panchal Consults: 03/18/19 18:04 Consult Physician Routine Consulting Provider: Holly Tran Consult Reason/Comments: known Do you want consulting provider notified?: Yes 03/22/19 17:17 Consult Physician Stat Consulting Provider: Darren Martinez Consult Reason/Comments: dialysis cath Do you want consulting provider notified?: Yes Primary care physician: Gautam Rizvi [facility] Course: Chief Complaint: Tired History of presenting complaint: This is a pleasant [address] Rizvi. Chronic stable medical conditions include hypertension, hyperlipidemia, depression, anxiety, osteoarthritis. Patient about a week ago felt that she cannot really speak felt out of sorts. EMS was called out. Follow Accu-Cheks to be 43. Received glucose and felt better. She did not go to the hospital. Since then she been having nausea vomiting and predominantly throwing up. She went to see a pain specialist Dr. Carrillo and she was again incoherent of that. Decided to send her to the ER. No abdominal pain. Has been having some chills. In the ER found to be in acute renal failure. Patient's baseline creatinine per nephrology rundown 2.2. Hospital course: Admitted with-episodes of hypoglycemia, symptomatic, acute kidney injury likely ATN. Oral hypoglycemics were discontinued. Kidney function progressed. Patient symptomatic with uremic symptoms. Decision made to proceed with hemodialysis after discussing with the patient. Patient had 3 sessions of hemodialysis. Did well. Making urine. Today-doing well. Discussed at length with the patient. Questions were answered. Patient's friend will be driving her for dialysis initially. Sunday. Discussed with nephrology. Discussion and discharge planning more than 35 minutes Consultation: Dr. Tran and colleagues for nephrology Dr. Martinez from vascular surgery for placing dialysis catheter Physical examination: VITAL SIGNS: 98.5, 69, 18, 141/57, 92% on room air GENERAL: Propped up, comfortable EYES: Pupils equal. Conjunctiva normal. HEENT: Right neck dialysis catheter. NECK: JVD not raised; masses not palpable. HEART: First and second heart sounds are normal; no edema. LUNGS: Respiratory rate normal; clear to auscultation. ABDOMEN: Soft, nontender, liver spleen not palpable, no masses palpable. PSYCH: Alert and oriented x3; mood and affect narda MUSCULOSKELETAL: Evidence of OA especially in the hands l. INVESTIGATIONS, reviewed in the clinical context: Bun 43 creatinine 4.12 [id number] Previous testing White count 6.5 hemoglobin 11.2 platelets 293 pressure 5.7 bun 70 creatinine 6.06 Baseline creatinine supposed to be 2.2 UA positive for leukoesterase, WBC Urine drug screen positive for oxycodone EKG tracing personally reviewed by me shows-sinus rhythm Chest x-ray film personally reviewed by me-elevated right diaphragm, lung marlow are clear Computed tomography scan of the brain-lung marlow clear Assessment: -Diabetes mellitus type 2 uncontrolled with episodes of hypoglycemia, symptomatic, corrected. Resumed on Glucotrol 2.5 mg daily, POA -Hemodialysis catheter placed on March 23-. 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 -Primary osteoarthritis -Morbid obesity BMI 44.2 -Hyperkalemia secondary to acute kidney injury and patient be on RAFAEL inhibitor, corrected, POA -Hypomagnesemia -Hyperphosphatemia Disposition: Home Plan - Discharge Summary New Discharge Prescriptions: New hydrALAZINE HCL [Apresoline] 50 mg PO TID #90 tab Repaglinide [Prandin] 0.5 mg PO AC-TID #90 tablet Continue Calcitriol 0.5 mcg PO LOBO Cholecalciferol [Vitamin D3 (25 Mcg = 1000 Iu)] 2,000 unit PO HS Citalopram Hydrobromide [CeleXA] 40 mg PO DAILY Cyanocobalamin (Vitamin B-12) [Vitamin B-12] 1,000 mcg PO HS Diltiazem HCl 120 mg PO BID Furosemide [Lasix] 20 mg PO DAILY Levothyroxine Sodium [Synthroid] 112 mcg PO DAILY Multivitamin [Multivitamins Adult Gummies] 1 tab PO HS oxyCODONE-APAP 10-325MG [Percocet 10-325 mg] 1 tab PO TID PRN PRN Reason: Pain Rosuvastatin Calcium [Crestor] 10 mg PO DAILY Discontinued glipiZIDE [Glucotrol] 10 mg PO AC-BID Lisinopril [Zestril] 5 mg PO DAILY Discharge Medication List Calcitriol 0.5 mcg PO LOBO 03/18/19 [History] Cholecalciferol [Vitamin D3 (25 Mcg = 1000 Iu)] 2,000 unit PO HS 03/18/19 [History] Citalopram Hydrobromide [CeleXA] 40 mg PO DAILY 03/18/19 [History] Cyanocobalamin (Vitamin B-12) [Vitamin B-12] 1,000 mcg PO HS 03/18/19 [History] Diltiazem HCl 120 mg PO BID 03/18/19 [History] Furosemide [Lasix] 20 mg PO DAILY 03/18/19 [History] Levothyroxine Sodium [Synthroid] 112 mcg PO DAILY 03/18/19 [History] Multivitamin [Multivitamins Adult Gummies] 1 tab PO HS 03/18/19 [History] Rosuvastatin Calcium [Crestor] 10 mg PO DAILY 03/18/19 [History] oxyCODONE-APAP 10-325MG [Percocet 10-325 mg] 1 tab PO TID PRN 03/18/19 [History] Repaglinide [Prandin] 0.5 mg PO AC-TID #90 tablet 03/26/19 [Rx] hydrALAZINE HCL [Apresoline] 50 mg PO TID #90 tab 03/26/19 [Rx] Follow up Appointment(s)/Referral(s): Gautam Rizvi DO [Primary Care Provider] - 1-2 days (Office is closed. Please call to schedule appointment) Marco Augustine DO [STAFF PHYSICIAN] - 1 Week (Office is closed. Please call to schedule appointment) Patient Instructions/Handouts: Acute Kidney Injury (DC), Chronic Kidney Disease (DC), Hemodialysis (DC) Activity/Diet/Wound Care/Special Instructions: [facility] MWF @2:30 Discharge Disposition: HOME SELF-CARE
== END 2019-03-26 18:40 | disposition home or self-care (01) | DRG 682 ==
LOC: EC 14:42 → 3SCARD 18:04
PROVIDERS: ADMIT Hospitalist; ATTEND Hospitalist
DX: N17.0 Acute kidney failure with tubular necrosis (principal); G93.41 Metabolic encephalopathy; Z68.41 Body mass index [BMI] 40.0-44.9, adult; E87.2 Acidosis; N18.4 Chronic kidney disease, stage 4 (severe); E11.22 Type 2 diabetes mellitus with diabetic chronic kidney disease; E11.65 Type 2 diabetes mellitus with hyperglycemia; E11.649 Type 2 diabetes mellitus with hypoglycemia without coma; E66.01 Morbid (severe) obesity due to excess calories; E78.5 Hyperlipidemia, unspecified; M89.8X9 Other specified disorders of bone, unspecified site; M19.91 Primary osteoarthritis, unspecified site; F32.9 Major depressive disorder, single episode, unspecified; F41.9 Anxiety disorder, unspecified; E87.5 Hyperkalemia; E87.70 Fluid overload, unspecified; T46.4X5A Adverse effect of angiotensin-converting-enzyme inhibitors, initial encounter; E83.42 Hypomagnesemia; E83.39 Other disorders of phosphorus metabolism; I12.9 Hypertensive chronic kidney disease with stage 1 through stage 4 chronic kidney disease, or unspecified chronic kidney disease; Z79.4 Long term (current) use of insulin; Z88.5 Allergy status to narcotic agent; Z79.890 Hormone replacement therapy; Z79.899 Other long term (current) drug therapy; Z82.49 Family history of ischemic heart disease and other diseases of the circulatory system; Z85.42 Personal history of malignant neoplasm of other parts of uterus; Z90.710 Acquired absence of both cervix and uterus; Z87.891 Personal history of nicotine dependence; Z90.49 Acquired absence of other specified parts of digestive tract; Z98.890 Other specified postprocedural states; Z83.3 Family history of diabetes mellitus
CPT/HCPCS: 36415; 36558; 70450; 71045; 71046; 76937; 77001; 80048; 80053; 80306; 81001; 83735; 83880; 84100; 84484; 85025; 85610; 85730; 86704; 86706; 87340; 90935; 93005; 93880; 94640; 94760; 96361; 96374; 99285

== ENCOUNTER → 2019-12-09 | Outpatient (CLI) | payer MEDICARE, BC ==
[2019-12-09 15:32] LABS: Basophils % (A) 0 %; Eosinophils # (A) 0.1 k/uL (0-0.7); Eosinophils % (A) 2 %; HCT 38.5 % (34.0-46.0); HGB 12.1 gm/dL (11.4-16.0); Hypochromasia Slight; Lymphocytes # (A) 0.9 k/uL (1.0-4.8); Lymphocytes % (A) 18 %; MCH 30.6 pg (25.0-35.0); MCHC 31.3 g/dL (31.0-37.0); MCV 97.6 fL (80.0-100.0); Mean Platelet Volume 7.7; Monocytes # (A) 0.2 k/uL (0-1.0); Monocytes % (A) 3 %; Neutrophils # (A) 3.9 k/uL (1.3-7.7); Neutrophils % (A) 76 %; Platelet Count 203 k/uL (150-450); RBC 3.94 m/uL (3.80-5.40); RDW 14.8 % (11.5-15.5); WBC 5.2 k/uL (3.8-10.6)
[2019-12-09 15:41] LABS: Potassium 4.9 mmol/L (3.5-5.1)
== END | disposition home or self-care (01) ==
LOC: LABPAT 14:36
PROVIDERS: ATTEND Surgery
DX: Z01.818 Encounter for other preprocedural examination (principal); N18.6 End stage renal disease
CPT/HCPCS: 36415; 80051; 82565; 84520; 85025

== ENCOUNTER → 2019-12-23 | Day surgery (SDC) | payer MEDICARE, BC ==
[2019-12-22 09:29] VITALS: BMI 39.8
[~2019-12-23] MED LIST: IOPAMIDOL-250 50ML BTL INTRAARTER ONE; LIDOCAINE 1% INJ 10MG/ML (20 ML MDV) SQ ONE; MIDAZOLAM 2 MG/2 ML VIAL IVP ONE; SODIUM CHLORIDE 0.9% 500 ML 500 ML IV SCH; fentaNYL (PF) 50 MCG/ML 2 ML AMP IVP ONE
[2019-12-23 10:18] VITALS: TEMP 97.3
[2019-12-23 10:25] LABS: Glucose,Whole Blood 99 mg/dL (75-99)
[2019-12-23 11:52] LABS: Glucose,Whole Blood 84 mg/dL (75-99)
--- NOTE | 2019-12-23 15:46 | P.OP ---
Date of Procedure: 12/23/19 Description of Procedure: Preoperative diagnosis: End-stage renal disease, malfunctioning fistula Postoperative diagnosis: Same, widely patent normal fistula Procedure: #1 ultrasound guided right upper extremity cephalic vein access #2 right upper extremity fistulogram #3 moderate conscious sedation 10 minutes with Versed and fentanyl Surgeon: Carin Nieves D.O. EBL: Less than 5 mL IV fluids: Not measured Urine output: Not measured Drains: None Complications: None immediately apparent Condition: Stable to recovery Operative indication and findings: The patient is a 74-year-old female with a previously placed right upper extremity brachiocephalic fistula creation. They have been having some issues with filtrating and areas of vein too deep for access. She had an ultrasound which did reveal some areas of different velocities possibly consistent with stenoses therefore a fistulogram was recom mended. She presents today for this. Risks and benefits were discussed. She seemingly understood and was willing to proceed as such Procedure in detail: The right upper extremity was prepped and draped in usual sterile fashion. A preprocedure timeout was performed, all parties were in agreement. The ultrasound was utilized in the skin overlying the fistula was identified. 1% lidocaine plain was used to infiltrate. A micropuncture needle was used and the fistula was cannulated. Micro-access sheath was placed via Seldinger technique. A fistulogram was performed revealing a widely patent fistula with good flow and clearance. Pressure was held on the outflow and a fistula gram was again performed evaluating the inflow. The artery itself was not well visualized but the anastomosis appeared patent without a significant areas of stenosis. There was good adequate flushing through the fistula with adequate flow. The catheter was removed and hemostasis was obtained with manual pressure. The patient allowed to return to recovery in stable condition having tolerated the procedure well. Plan - Discharge Summary Discharge Rx Participant: Yes New Discharge Prescriptions: No Action Furosemide [Lasix] 40 mg PO DAILY Levothyroxine Sodium [Synthroid] 112 mcg PO DAILY oxyCODONE-APAP 10-325MG [Percocet 10-325 mg] 1 tab PO TID Rosuvastatin Calcium [Crestor] 10 mg PO DAILY Repaglinide [Prandin] 0.5 mg PO AC-TID #90 tablet Metoprolol Tartrate [Lopressor] 25 mg PO SUTUTHSA Apixaban [Eliquis] 2.5 mg PO BID Albuterol Inhaler [Ventolin Hfa Inhaler] 2 puff INHALATION RT-QID PRN PRN Reason: Asthma Vitamin B Complex 1 each PO DAILY Calcium Acetate 667 mg PO TID Discharge Medication List Furosemide [Lasix] 40 mg PO DAILY 03/18/19 [History] Levothyroxine Sodium [Synthroid] 112 mcg PO DAILY 03/18/19 [History] Rosuvastatin Calcium [Crestor] 10 mg PO DAILY 03/18/19 [History] oxyCODONE-APAP 10-325MG [Percocet 10-325 mg] 1 tab PO TID 03/18/19 [History] Repaglinide [Prandin] 0.5 mg PO AC-TID #90 tablet 03/26/19 [Rx] Albuterol Inhaler [Ventolin Hfa Inhaler] 2 puff INHALATION RT-QID PRN 12/22/19 [History] Apixaban [Eliquis] 2.5 mg PO BID 12/22/19 [History] Calcium Acetate 667 mg PO TID 12/22/19 [History] Metoprolol Tartrate [Lopressor] 25 mg PO SUTUTHSA 12/22/19 [History] Vitamin B Complex 1 each PO DAILY 12/22/19 [History] Follow up Appointment(s)/Referral(s): Last Vaughan DO [STAFF PHYSICIAN] - 2 Weeks Activity/Diet/Wound Care/Special Instructions: Resuming regular activities. Discharge Disposition: HOME SELF-CARE
--- NOTE | 2019-12-23 15:59 | IR ---
EXAMINATION TYPE: IR fistula/abscess/sinus tract DATE OF EXAM: 12/23/2019 COMPARISON: NONE HISTORY: Fluoroscopy time. Fluoroscopy was provided to the referring clinician.
[2019-12-23 19:16] VITALS: BP 190/98; PULSE 90; RESP 16
== END | disposition home or self-care (01) ==
LOC: CATHCVL 09:24
PROVIDERS: ATTEND Surgery
DX: T82.590A Other mechanical complication of surgically created arteriovenous fistula, initial encounter (principal); N18.6 End stage renal disease; Z99.2 Dependence on renal dialysis; Z79.899 Other long term (current) drug therapy; Z79.890 Hormone replacement therapy; Z79.01 Long term (current) use of anticoagulants; Z79.891 Long term (current) use of opiate analgesic; Z88.6 Allergy status to analgesic agent; Z98.890 Other specified postprocedural states; Z90.49 Acquired absence of other specified parts of digestive tract; Z90.89 Acquired absence of other organs
CPT/HCPCS: 36901; J2250; J2001; J3010; Q9966; 76080

== ENCOUNTER → 2020-06-01 | Outpatient (CLI) | payer MEDICARE, BC ==
--- NOTE | 2020-06-02 09:29 | MM ---
Reason for exam: screening (asymptomatic). Last mammogram was performed 1 year and 3 months ago. History: Patient is postmenopausal and history of other cancer. Physical Findings: A clinical breast exam by your physician is recommended on an annual basis and results should be correlated with mammographic findings. MG 3D Screening Mammo W/Cad Bilateral CC and MLO view(s) were taken. Prior study comparison: March 14, 2019, bilateral MG 3d screening mammo w/cad. February 26, 2018, bilateral MG 3d screening mammo w/cad. There are scattered fibroglandular densities. There is no discrete abnormality. No significant changes when compared with prior studies. ASSESSMENT: Negative, BI-RAD 1 RECOMMENDATION: Routine screening mammogram of both breasts in 1 year.
== END | disposition home or self-care (01) ==
LOC: RADMAMWWP 12:33
PROVIDERS: ATTEND Family Medicine
DX: Z12.31 Encounter for screening mammogram for malignant neoplasm of breast (principal)
CPT/HCPCS: 77063; 77067

== ENCOUNTER → 2020-06-03 | Outpatient (CLI) | payer MEDICARE, BC ==
--- NOTE | 2020-06-03 15:21 | US ---
EXAMINATION TYPE: US carotid duplex BILAT DATE OF EXAM: 06/03/2020 COMPARISON: Carotid ultrasound March 20, 2019 CLINICAL HISTORY: R41.3 OTHER AMNESIA. EXAM MEASUREMENTS: RIGHT: Peak Systolic Velocity (PSV) cm/sec ----- Right CCA: 52.9 ----- Right ICA: 70.0 ----- Right ECA: 52.9 ICA/CCA ratio: 1.3 RIGHT: End Diastole cm/sec ----- Right CCA: 13.6. ----- Right ICA: 18.0 ----- Right ECA: 0.0 LEFT: Peak Systolic Velocity (PSV) cm/sec ----- Left CCA: 62.2 ----- Left ICA: 69.3 ----- Left ECA: 52.3 ICA/CCA ratio: 1.1 LEFT: End Diastole cm/sec ----- Left CCA: 7.9 ----- Left ICA: 22.9 ----- Left ECA: 0.0 VERTEBRALS (direction of flow): Right Vertebral: Antegrade Left Vertebral: Antegrade Rhythm: Normal Rodriguez scale images show mild eccentric hyperechoic peripheral plaque at bilateral carotid bulb level. IMPRESSION: Mild bilateral plaque redemonstrated. No hemodynamically significant stenosis seen in ei ther internal carotid artery. Criteria for Assigning % of Stenosis / Diameter reduction (Estimation based on the indirect measurements of the internal carotid artery velocities (ICA PSV). 1. Normal (no stenosis)=ICA PSV < 125 cm/s: ratio < 2.0: ICA EDV<40 cm/s. 2. Less than 50% stenosis=ICA PSV < 125 cm/s: ratio < 2.0: ICA EDV<40 cm/s. 3. 50 to 69% stenosis=ICA PSV of 125 to 230 cm/s: ration 2.0 ? 4.0: ICA EDV 40-100 cm/s. 4. Greater than 70% stenosis to near occlusion= ICA PSV > 230 cm/s: ratio > 4.0: ICA EDV > 100 cm/s. 5. Near occlusion= ICA PSV velocities may be low or undetectable: variable ratio and ICA EDV. 6. Total occlusion=unable to detect flow.
== END | disposition home or self-care (01) ==
LOC: RADUSWWP 14:25
PROVIDERS: ATTEND Family Medicine
DX: I65.23 Occlusion and stenosis of bilateral carotid arteries (principal)
CPT/HCPCS: 93880

== ENCOUNTER → 2020-06-08 | Outpatient (CLI) | payer MEDICARE, BC ==
[2020-06-08 18:25] LABS: HCT 38.1 % (37.2-46.3); MCH 30.6 pg (27.0-32.0); MCHC 31.5 g/dL (32.0-37.0); MCV 97.2 fL (80.0-97.0); Mean Platelet Volume 10.8 fL (9.5-12.2); Platelet Count 239 X 10*3/uL (140-440); RBC 3.92 X 10*6/uL (4.10-5.20); RDW 13.2 % (11.5-14.5); WBC 6.62 X 10*3/uL (4.50-10.00)
[2020-06-08 22:18] LABS: Hemoglobin A1C 5.7 % (4.0-6.0)
[2020-06-09 00:21] LABS: INR 1.97 (0.90-1.11); Partial Thromboplastin Time 35.5 sec (23.5-31.0); Prothrombin Time 20.5 sec (9.9-11.9)
[2020-06-09 13:52] LABS: % Iron Saturation 18.46 (12.00-45.00); ALT 25 U/L (8-44); AST 33 U/L (13-35); African American GFR (CKD) 19.3 (60.0-200.0); Albumin/Globulin Ratio 1.87 (1.60-3.17); Alkaline Phosphatase 197 U/L (41-126); BUN/Creat Ratio 8.52 Ratio (12.00-20.00); Calcium 9.1 mg/dL (8.7-10.3); Carbon Dioxide 29.2 mmol/L (21.6-31.8); Chloride 98 mmol/L (96-109); Chol/HDL Ratio 2.73; Cholesterol 131 mg/dL (0-200); Ferritin 1559.4 ng/mL (10.0-291.0); Folate, Serum >24.0 ng/mL; Globulin 2.3 g/dL (1.6-3.3); Glucose 176 mg/dL (70-110); Iron 55 ug/dL (50-170); Magnesium 1.9 mg/dL (1.5-2.4); Non-African American GFR(CKD) 16.7 (60.0-200.0); Phosphorus 4.2 mg/dL (2.4-5.1); Potassium 4.2 mmol/L (3.5-5.5); Sodium 139 mmol/L (135-145); Total Bilirubin 0.5 mg/dL (0.3-1.2); Total Iron Binding Capacity 298 ug/dL (228-460); Total Protein 6.6 g/dL (6.2-8.2)
[2020-06-10 07:16] LABS: Vitamin A 69 ug/dL (38-106)
[2020-06-10 07:55] LABS: Vit B1(Thiamine) 103 ug/L (38-122)
[2020-06-11 08:10] LABS: Zinc, Serum 62 ug/dL (60-130)
== END | disposition home or self-care (01) ==
LOC: LABWHC1 13:28
PROVIDERS: ATTEND Surgery Plastic and Reconstructive Surgery
DX: N19 Unspecified kidney failure (principal); E55.9 Vitamin D deficiency, unspecified; E21.1 Secondary hyperparathyroidism, not elsewhere classified; D50.8 Other iron deficiency anemias; K90.89 Other intestinal malabsorption; K74.1 Hepatic sclerosis; K50.90 Crohn's disease, unspecified, without complications; E66.01 Morbid (severe) obesity due to excess calories
CPT/HCPCS: 36415; 80053; 80061; 82306; 82525; 82607; 82728; 82746; 83036; 83540; 83550; 83735; 83970; 84100; 84134; 84255; 84425; 84443; 84590; 84630; 85027; 85610; 85730

== ENCOUNTER → 2020-06-16 | Outpatient (CLI) | payer MEDICARE, BC ==
--- NOTE | 2020-06-16 09:36 | CT ---
EXAMINATION TYPE: CT abdomen pelvis wo con DATE OF EXAM: 06/16/2020 HISTORY: H/O small bowel obstruction; , history of gastric bypass surgery long time ago with recurren t pain and vomiting CT DLP: 1423.70 mGycm. Automated Exposure Control for Dose Reduction was Utilized. TECHNIQUE: CT scan of the abdomen and pelvis is performed without oral or IV contrast. COMPARISON: Chest x-ray March 18, 2019 FINDINGS: Within the limitations of a non-contrast study, the following observations are made. LUNG BASES: Elevated right hemidiaphragm redemonstrated. LIVER/GB: Cholecystectomy clips. Mild extrahepatic biliary dilatation up to 15 mm coronal image 55. M [id number] central intrahepatic delivery dilatation noted. Correlation with old outside imaging would be beneficial to further assess. PANCREAS: No significant abnormality is seen. SPLEEN: Few punctate calcifications scattered throughout the spleen.. ADRENALS: No significant abnormality is seen. KIDNEYS: Cortical thinning and small size to both kidneys. There is 2.3 cm thin-walled cyst laterally right kidney coronal image 66. No hydronephrosis seen bilaterally. BOWEL: Surgical changes epigastric region from gastric bypass procedure. No suspicious small or larg e bowel dilatation. Diverticula in the left and sigmoid colon. No CT evidence for acute diverticuliti s. Prominent bowel loop at site of surgical anastomosis left upper to mid abdomen. Suboptimal evaluat ion without enteric contrast. Rounded 3.0 cm lesion upper to mid abdomen just left of midline axial i mage 37 could reflect focal prominent bowel loop with difficult to connect to adjacent bowel loops, m esenteric mass or adenopathy not excluded. GENITAL ORGANS: Uterus surgically absent or markedly atrophic. Scattered bilateral pelvic phleboliths . LYMPH NODES: No greater than 1cm abdominal or pelvic lymph nodes are appreciated. OSSEOUS STRUCTURES: Moderate axial joint space loss both hips. Straightening of spine on sagittal cora ges with moderate to severe disc space narrowing and vacuum disc phenomenon with endplate sclerosis L 2-L3 level. Moderate disc space narrowing and vacuum disc phenomenon L3-L4 level. Mild disc space jesi rowing and vacuum disc phenomenon L5-S1 level. OTHER: Mild calcified plaque of the aorta extends into branch vessels. Small fat-containing umbilical hernia IMPRESSION: 1. Gastric bypass changes. Overall nonobstructive bowel gas pattern. There is 3.0 cm left upper to mi d abdominal round lesion, advise further investigation with repeat CT with oral and IV contrast to ru le out mesenteric mass or adenopathy. 2. Mild to moderate central intrahepatic and intrahepatic biliary dilatation out of proportion to mehdi pected after cholecystectomy. Correlate clinically and with liver lab values. Correlation with old ou tside imaging would be beneficial to determine need for further investigation by ERCP/MRCP. 2.
--- NOTE | 2020-06-16 09:42 | FL ---
EXAMINATION TYPE: FL barium swallow DATE OF EXAM: 06/16/2020 CLINICAL HISTORY: History of gastric bypass over 10 years ago with recurrent vomiting and dysphasia [place] last several months TECHNIQUE: A double contrast esophagram is performed utilizing air and barium. A total of 43 second s of fluoroscopic time was utilized during procedure and 36 images obtained COMPARISON: Same day CT abdomen and pelvis study FINDINGS: The esophagus shows the initial satisfactory motility and emptying into the gastric remnant . With additional drinking there is incomplete emptying of the esophagus with episodes of abnormal se condary and tertiary contractions. There is then contrast up above the subcarinal level. No evidence of hiatal hernia or esophageal stricture noted. There is flow of contrast into anastomotic small bennie l loop but also some reflux into the esophagus. Cholecystectomy clips incidentally noted. IMPRESSION: Gastric bypass changes. Moderate esophageal dysmotility and moderate gastroesophageal re flux.
== END | disposition home or self-care (01) ==
LOC: RADCTMAIN 07:40
PROVIDERS: ATTEND Surgery Plastic and Reconstructive Surgery
DX: K21.9 Gastro-esophageal reflux disease without esophagitis (principal); K22.4 Dyskinesia of esophagus; Z98.84 Bariatric surgery status
CPT/HCPCS: 74176; 74220

== ENCOUNTER → 2020-07-22 | Outpatient (CLI) | payer MEDICARE, BC ==
--- NOTE | 2020-07-22 13:39 | P.HPBAR ---
Bariatric H&P - History & Physicial H&P Date: 07/22/20 History & Physicial: Visit/CC: Patient initial contact: Initial weight: Initial weight in pounds: Height: Initial BMI: Last weight: Current weight: Current weight in pounds: Current BMI: [place] body weight (based on NIH guidelines): Excess body weight loss: The patient is a 74 year-old F who presents for Bariatric Assessment. DATE OF SERVICE: 07/22/2020 REASON FOR CONSULTATION: Panniculitis HISTORY OF PRESENT ILLNESS: Barb Mohr is a 74-year-old female who comes with lifelong morbid obesity. Her highest weight was 362 pounds. She lost over 100 pounds after having a gastric bypass 20+ years ago. She comes in with moderate-sized symptomatic pannus. She reports activities of daily living is impaired from her pannus. 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 She had recent laboratory work demonstrating severe copper deficiency. She also takes chronic blood thinners. She has tried local treatments for her panniculitis over 5 years with minimal improvement. Additional, she reports dysphagia. She reports no prior colonoscopy screening. At height of 5 feet 3 inches, her ideal body weight is 140 pounds. Her highest weight is 362 pounds, BMI 64.3. She comes in 239 pounds. Her body mass index is 42.4. She is 99 pounds overweight. Lifetime weight loss of 123 pounds. Lifetime percent excess weight loss of 56%. PAST MEDICAL HISTORY: 1. Morbid obesity due to excess calories 2. Body mass index of 64.3, initial 3. End stage renal disease, Stage 5 on dialysis, M, W, F 4. Hypothyroidism 5. Hyperlipidemia 6. Chronic pain syndrome 7. Chronic obstructive pulmonary disease with asthma 8. Hypertensive heart disease 9. Osteoarthritis bilateral knees. 10. Uterine cancer 11. Varicose veins 12. Panniculitis PAST SURGICAL HISTORY: 1. Bilateral knee replacement 2. Right foot surgery 3. Cholecystectomy 4. Hysterectomy 5. Gastric bypass 6. Vascular shunt HOME MEDICATIONS: Home Medications Medication Instructions Recorded Confirmed Furosemide [Lasix] 40 mg PO DAILY 03/18/19 10/08/20 Levothyroxine Sodium [Synthroid] 112 mcg PO DAILY 03/18/19 10/08/20 Rosuvastatin Calcium [Crestor] 10 mg PO DAILY 03/18/19 10/08/20 oxyCODONE-APAP 10-325MG [Percocet 1 tab PO TID 03/18/19 10/08/20 10-325 mg] Albuterol Inhaler [Ventolin Hfa 2 puff INHALATION RT-QID PRN 12/22/19 10/08/20 Inhaler] Calcium Acetate 1,334 mg PO TID 12/22/19 10/08/20 Metoprolol Tartrate [Lopressor] 25 mg PO DAILY 12/22/19 10/08/20 Iron Injections 1 dose IM MOWEFR 08/02/20 10/08/20 amLODIPine [Norvasc] 10 mg PO HS 08/02/20 10/08/20 tiZANidine [Zanaflex] 4 mg PO HS 08/02/20 10/08/20 Ergocalciferol [Vitamin D2 (1250 1,250 mcg PO MO 10/08/20 10/08/20 Mcg = 82099 Iu)] Lidocaine-Prilocaine Cream [Emla 1 applic TOPICAL DIRECTED PRN 10/08/20 10/08/20 Cream 2.5%/2.5%] SILVER sulfADIAZINE CREAM 1 applic TOPICAL BID 10/08/20 10/08/20 [Silvadene Cream] Warfarin [Coumadin] 6 mg PO HS 10/08/20 10/08/20 amLODIPine [Norvasc] 10 mg PO HS 10/08/20 10/08/20 lisinopriL [Zestril] 5 mg PO HS 10/08/20 10/08/20 tiZANidine [Zanaflex] 4 mg PO HS 10/08/20 10/08/20 Previous Rx's Medication Instructions Recorded Repaglinide [Prandin] 0.5 mg PO AC-TID #90 tablet 03/26/19 ALLERGIES: Allergies Allergy/AdvReac Type Severity Reaction Status Date / Time naproxen [From Naprosyn] Allergy Dyspnea Verified 10/08/20 13:08 SOCIAL HISTORY: Past tobacco use. FAMILY HISTORY: No family history of ulcerative colitis disease or Crohn's disease. Family history of morbid obesity. No lupus in the family. No reports of stomach or esophageal cancer. Diabetes and hypertension in the family. REVIEW OF ORGAN SYSTEMS: CONSTITUTIONAL: At height of 5 feet 3 inches, her ideal body weight is 140 pounds. Her highest weight is 362 pounds, BMI 64.3. She comes in 239 pounds. Her body mass index is 42.4. She is 99 pounds overweight. Lifetime weight loss of 123 pounds. Lifetime percent excess weight loss of 56%. HEENT: Denies any active troubles with hearing. She wears glasses. ENDOCRINE: Denies diabetes. No hypothyroidism. CARDIOVASCULAR: Past reports of palpitations or heart attacks or chest pain. Has hypertensive heart disease. RESPIRATORY: Has asthma. Has chronic obstructive pulmonary disease. GASTROINTESTINAL: Denies any bright red blood per rectum. No diarrhea. No constipation. GENITOURINARY: Past hysterectomy. No recent blood in urine. End stage 5 renal disease, dialysis dependent M, W, F. MUSCULOSKELETAL: Has lower back pain and joint pain. Has osteoarthritis of the knees. NEURO: No headaches. No seizure disorders. Has chronic pain. PSYCH: Denies depression. No suicidal ideation. RHEUMATOLOGIC: No lupus. No rheumatoid arthritis. HEMATOLOGIC: Has abnormal bleeding or bruising. On blood thinners. SKIN: Has panniculitis. No skin cancer. PHYSICAL EXAM: VITAL SIGNS: Height 5 foot 3 inches, weight 239 pounds. BMI 42.4 Vital Signs Temp 97.5 F L 07/22/20 14:29 Pulse 73 07/22/20 14:29 Resp 16 07/22/20 14:29 BP 191/82 07/22/20 14:29 Pulse Ox GENERAL: Well-developed in no acute distress. HEENT: No scleral icterus. Extraocular movements grossly intact. Hears conversational speech. No nasal drainage. NECK: Supple without lymphadenopathy. CHEST: Nonlabored respirations with equal bilateral excursions. CARDIOVASCULAR: Regular rate and regular rhythm. Distal 2+ pulses. ABDOMEN: Obese, soft, nontender, nondistended. Pannus extends to the lower thigh. Grade 4 panniculosis. Pannus over 20 pounds. MUSCULOSKELETAL: No clubbing, cyanosis. NEURO: No focal or lateralizing signs. Cranial nerves 2 through 12 grossly within normal limits. PSYCH: Appropriate affect. Alert and oriented to person, place and time. SKIN: Good skin turgor. Well perfused. Bruising noted along extremities. LABS: ASSESSMENT: 1. Morbid obesity due to excess calories 2. Body mass index of 64.3, initial to 42.4 3. End stage renal disease, Stage 5 on dialysis, M, W, F 4. Hypothyroidism 5. Hyperlipidemia 6. Chronic pain syndrome 7. Chronic obstructive pulmonary disease with asthma 8. Hypertensive heart disease 9. Osteoarthritis bilateral knees. 10. Uterine cancer 11. Varicose veins 12. Panniculitis 13. Dysphagia 14. Colonoscopy screening. PLAN: 1. Nystatin powder recommended for panniculitis. 2. Recommend sterile instrument technician assessment. 3. Recommend correction of all nutritional deficiencies advised. 4. Dietary surveillance and counseling was reviewed. Increased protein intake over 65 grams daily advised. 5. Will need cardiac risk assessment. 6. Recommend medical risk assessment. 7. Recommend 12-lead EKG. 8. Recommend upper endoscopy and colonoscopy. She is elevated risk with blood thinners and dialysis dependent. Thank you for this consultation. Past Medical History Past Medical History: Asthma, Cancer, Diabetes Mellitus, Hyperlipidemia, Hypertension, Osteoarthritis (OA), Renal Disease, Thyroid Disorder Additional Past Medical History / Comment(s): Hx Uterine cancer 25 yrs ago, Dialysis Mon, Wed and Fri, varicose veins. History of Any Multi-Drug Resistant Organisms: None Reported Past Surgical History: Bariatric Surgery, Cholecystectomy, Hysterectomy, Joint Replacement Additional Past Surgical History / Comment(s): Bilateral knee and right foot surgery. Past Anesthesia/Blood Transfusion Reactions: No Reported Reaction Past Psychological History: No Psychological Hx Reported Smoking Status: Former smoker Past Alcohol Use History: None Reported Additional Past Alcohol Use History / Comment(s): Quit smoking 30+ yrs ago. Past Drug Use History: None Reported - Past Family History Mother Family Medical History: Cancer, Diabetes Mellitus, Hypertension Father Family Medical History: Diabetes Mellitus, Hypertension Sister(s) Family Medical History: Cancer, Diabetes Mellitus Bariatric Checklist Checklist: Plan: Checklist: EGD: 1. Hiatal hernia: 2. H. Pylori: HgbA1c: Vitamin D: Smoking: Former smoker Primary care physician referral: Psychiatry clearance: Cardiology clearance: Sleep study: Diet journal: VTE risk score: VTE risk level: Rehab needs at discharge:
[2020-07-22 14:33] VITALS: BP 191/82; PULSE 73; RESP 16; TEMP 97.5; BMI 42.3
== END ==
LOC: BARWHC3 11:38
PROVIDERS: ATTEND Surgery Plastic and Reconstructive Surgery
DX: E66.01 Morbid (severe) obesity due to excess calories (principal); E03.9 Hypothyroidism, unspecified; E78.5 Hyperlipidemia, unspecified; G89.4 Chronic pain syndrome; J44.9 Chronic obstructive pulmonary disease, unspecified; I11.9 Hypertensive heart disease without heart failure; M17.0 Bilateral primary osteoarthritis of knee; C55 Malignant neoplasm of uterus, part unspecified; I83.90 Asymptomatic varicose veins of unspecified lower extremity; R13.10 Dysphagia, unspecified; M79.3 Panniculitis, unspecified; N18.6 End stage renal disease; Z99.2 Dependence on renal dialysis; Z79.899 Other long term (current) drug therapy; Z12.11 Encounter for screening for malignant neoplasm of colon; Z79.01 Long term (current) use of anticoagulants; Z79.891 Long term (current) use of opiate analgesic
CPT/HCPCS: 99211

== ENCOUNTER 2020-08-05 06:22 | Day surgery (SDC) | payer MEDICARE, BC ==
[2020-08-05 07:06] VITALS: RESP 16; TEMP 98.3
[2020-08-05] MEDS: LACTATED RINGERS 1,000 ML IV SCH ×2 (07:10→07:37)
[2020-08-05] MEDS ORDERED: SODIUM CHLORIDE 0.9% 500 ML 500 ML IV ONE ×2 (07:10→08:45)
[2020-08-05 07:18] LABS: Glucose,Whole Blood 128 mg/dL (75-99)
[2020-08-05 07:26] LABS: Prothrombin Time 10.6 sec (9.0-12.0)
[2020-08-05] MEDS ORDERED: PROPOFOL 10 MG/ML 20 ML VIAL IV ONE (07:36)
--- NOTE | 2020-08-05 07:36 | P.GSHP ---
History of Present Illness H&P Date: 08/05/20 CHIEF COMPLAINT: GERD and colon screen HISTORY OF PRESENT ILLNESS: The patient is a 74-year-old female who presents with gastroesophageal reflux disease and need for colon screen. Upper and lower endoscopy were offered for further evaluation and management. PAST MEDICAL HISTORY: Please see list. PAST SURGICAL HISTORY: Please see list. MEDICATIONS: Please see list. ALLERGIES: Please see list. SOCIAL HISTORY: No illicit drug use FAMILY HISTORY: No reports of Crohn disease or ulcerative colitis. REVIEW OF ORGAN SYSTEMS: CONSTITUTIONAL: No reports of fevers or chills. PHYSICAL EXAM: VITAL SIGNS: Stable GENERAL: Well-developed pleasant in no acute distress. HEENT: No scleral icterus. Extraocular movements grossly intact. Moist buccal mucosa. NECK: Supple without lymphadenopathy. CHEST: Unlabored respirations. Equal bilateral excursions. CARDIOVASCULAR: Regular rate and rhythm. Distal 2+ pulses. ABDOMEN: Soft, nondistended. MUSCULOSKELETAL: No clubbing, cyanosis, or edema. ASSESSMENT: 1. Gastroesophageal reflux disease 2. Colon screen. PLAN: 1. Recommend proceeding with an upper and lower endoscopy Past Medical History Past Medical History: Asthma, Cancer, Diabetes Mellitus, Hyperlipidemia, Hypertension, Osteoarthritis (OA), Renal Disease, Thyroid Disorder Additional Past Medical History / Comment(s): Hx Uterine cancer 25 yrs ago, Dialysis Sun, Sun and Sun, varicose veins. History of Any Multi-Drug Resistant Organisms: None Reported Past Surgical History: Bariatric Surgery, Cholecystectomy, Hysterectomy, Joint Replacement Additional Past Surgical History / Comment(s): Bilateral knee REPLACED. right foot surgery. Past Anesthesia/Blood Transfusion Reactions: No Reported Reaction, Family History of Problems w/ Anesthesia Additional Past Anesthesia/Blood Transfusion Reaction / Comment(s): MOTHER PONV Past Psychological History: No Psychological Hx Reported Smoking Status: Former smoker Past Alcohol Use History: None Reported Additional Past Alcohol Use History / Comment(s): Quit smoking 30+ yrs ago. Past Drug Use History: None Reported - Past Family History Mother Family Medical History: Cancer, Diabetes Mellitus, Hypertension Father Family Medical History: Diabetes Mellitus, Hypertension Sister(s) Family Medical History: Cancer, Diabetes Mellitus Medications and Allergies Home Medications Medication Instructions Recorded Confirmed Type Furosemide [Lasix] 40 mg PO QAM 03/18/19 08/02/20 History Levothyroxine Sodium [Synthroid] 112 mcg PO QAM 03/18/19 08/02/20 History Rosuvastatin Calcium [Crestor] 10 mg PO DAILY 03/18/19 08/02/20 History oxyCODONE-APAP 10-325MG [Percocet 1 tab PO TID 03/18/19 08/02/20 History 10-325 mg] Repaglinide [Prandin] 0.5 mg PO AC-TID #90 tablet 03/26/19 08/02/20 Rx Albuterol Inhaler [Ventolin Hfa 2 puff INHALATION RT-QID PRN 12/22/19 08/02/20 History Inhaler] Calcium Acetate 667 mg PO TID 12/22/19 08/02/20 History Metoprolol Tartrate [Lopressor] 25 mg PO QAM 12/22/19 08/02/20 History Vitamin B Complex 1 each PO DAILY 12/22/19 08/02/20 History Iron Injections 1 dose IM MOWEFR 08/02/20 History Warfarin [Coumadin] 5.5 mg PO DAILY 08/02/20 08/02/20 History amLODIPine [Norvasc] 10 mg PO HS 08/02/20 08/02/20 History tiZANidine [Zanaflex] 4 mg PO HS 08/02/20 08/02/20 History Allergies Allergy/AdvReac Type Severity Reaction Status Date / Time naproxen [From Naprosyn] Allergy Dyspnea Verified 08/05/20 07:08 Surgical - Exam Vital Signs Temp Pulse Resp BP Pulse Ox 98.3 F 62 16 156/65 96 08/05/20 07:05 08/05/20 07:05 08/05/20 07:05 08/05/20 07:05 08/05/20 07:05 Results - Labs 08/05/20 07:06 Abnormal Lab Results - Last 24 Hours (Table) 08/05/20 Range/Units 07:10 POC Glucose (mg/dL) 128 H (75-99) mg/dL Diabetes panel 08/05/20 Range/Units 07:06 Potassium 3.6 (3.5-5.1) mmol/L Pituitary panel 08/05/20 Range/Units 07:06 Potassium 3.6 (3.5-5.1) mmol/L Adrenal panel 08/05/20 Range/Units 07:06 Potassium 3.6 (3.5-5.1) mmol/L
--- NOTE | 2020-08-05 08:00 | P.PCN ---
Date of Procedure: 08/05/20 Description of Procedure: PREOPERATIVE DIAGNOSIS: Dysphagia. Gastroesophageal reflux disease Esophageal dysmotility POSTOPERATIVE DIAGNOSIS: Dysphagia. Gastroesophageal reflux disease Esophageal dysmotility OPERATION: Esophagogastroduodenoscopy with rigid dilator over the guidewire 51 Fr esophageal dilation SURGEON: Sanjuanita Acosta MD ANESTHESIA: MAC. INDICATIONS: The patient is a 74-year-old female who presents with a history of dysphagia. Benefits and risks of the procedure were described. Informed consent was obtained. DESCRIPTION: The patient was brought into the endoscopy suite and laid in the left lateral decubitus position. After a timeout was confirmed, the procedure was initiated. An Olympus gastroscope was passed into the posterior oropharynx down to the distal esophagus were smallest 1 cm hiatal hernia recurrence was identified. The scope was entered into the gastric pouch. No ulcerations were identified. Moderate tertiary contractions with diffuse esophageal stenosis was identified. At 40 cm from the incisors, a hiatus was identified. The gastric pouch is less than 2 cm in size. 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 The scope was passed 50 cm from the incisors. Rigid dilator over guidewire was selected. Next using an Chadian rigid dilator, a guidewire was placed through the gastroscope. Next the scope was withdrawn. A 51-[place] rigid Chadian dilator was passed carefully along the posterior oropharynx to 50 cm and left in place for 2-3 minutes stretch. The dilator was withdrawn including the guidewire. The scope was reentered along the posterior oropharynx with no findings of full- thickness tear of the upper esophageal sphincter. No full-thickness injury was encountered. The GI tract was desufflated. The patient tolerated the procedure well. FINDINGS: LA grade A erosive esophagitis No active ulceration along the anastomosis Presbyesophagus with moderate tertiary contractions Gastric pouch 2 cm Blind jejunal limb 5 cm Chadian rigid dilator 51-[place] completed. RECOMMENDATIONS: Upper endoscopy as needed
[2020-08-05 09:30] VITALS: BP 173/70; PULSE 68
--- NOTE | 2020-08-05 09:48 | P.PCN ---
Date of Procedure: 08/05/20 Description of Procedure: PREOPERATIVE DIAGNOSIS: Colonoscopy screening End-stage renal disease Morbid obesity due to excess calories Dialysis-dependent Chronic anticoagulation POSTOPERATIVE DIAGNOSIS: Diverticulosis, sigmoid colon Tubular adenomas ascending colon Tubular adenoma cecum Tubular adenomas traverse Tubular adenomas descending colon OPERATION: Colonoscopy to the ileocecal valve and appendiceal orifice, cecum Colonoscopy with hot snare polypectomy Colonoscopy with injection of Missy ink splenic flexure Colonoscopy with ablation transverse colon SURGEON: Sanjuanita Acosta MD. ANESTHESIA: MAC. INDICATIONS: The patient is an 74-year-old female who is for colonoscopy screening. Last col onoscopy over 20 years ago. Benefits and risks were described and informed consent was obtained. DESCRIPTION OF PROCEDURE: The patient had undergone Sutab prep. The patient had been brought into the operating room and laid in the left lateral decubitus position. After adequate intravenous sedation, the rectum was examined with 2% lidocaine jelly. The prostate was unremarkable. No external hemorrhoids were encountered. The rectal tone was within normal limits. No lesions were palpated in the rectal vault. An Olympus colonoscope was advanced until the cecum, ileocecal valve and appendiceal orifice were clearly viewed. The prep was fair. Impacted stool was found within scattered diverticuli. Sigmoid diverticulosis was encountered. Colonic polyps were found and removed. At the distal transverse colon/splenic flexure, large adenoma over 1 cm was difficult to resect despite multiple attempts. Injection of Missy ink 2 mL was performed proximal distal to the lesion. No evidence of focal colitis was found. Retroflexion of the scope demonstrated grade 2 internal hemorrhoids without active bleeding or inflammation. The colon was desufflated. The patient had tolerated the procedure well. Withdrawal time was over 6 minutes. FINDINGS: Aronchick preparation quality scale 2 (1-5) Internal hemorrhoids, grade 1 with recent inflammation and bleeding No external hemorrhoids No arteriovenous malformations. Sigmoid diverticulosis Removal, injection and ablation of 15 polyps: - Snare polypectomy cecal polyp, 5 mm tubulovillous adenoma polyp. - Snare polypectomy proximal ascending, 8 mm villous adenoma polyp. - Snare polypectomy mid ascending colon polyp 2, 5 to 8 villous adenoma polyp. - Snare polypectomy descending colon polyp, 8 mm polyp. - Snare polypectomy proximal transverse colon 2, in 8-10 mm polyp. - Snare polypectomy mid transverse colontomy, 6 mm polyp. - Snare polypectomy distal transverse colon, removed, 8 mm unable to retrieve - Snare polypectomy descending colon polyp, 10 mm polyp. - Snare polypectomy at 40 cm from the anal verge 2, 6-8 mm polyp. - Ablation 3 mm polyp, ascending colon - Ablation 4 mm polyp, transverse colon. - Injection of Missy 2 mL total, proximal and distal to lesion at splenic flexure/distal transverse colon over 2 cm, unable to resect or retrieve No focal colitis. RECOMMENDATIONS: 1. Repeat colonoscopy in 3 months, October 2020 Plan - Discharge Summary Discharge Rx Participant: No New Discharge Prescriptions: Continue Furosemide [Lasix] 40 mg PO QAM Levothyroxine Sodium [Synthroid] 112 mcg PO QAM oxyCODONE-APAP 10-325MG [Percocet 10-325 mg] 1 tab PO TID Rosuvastatin Calcium [Crestor] 10 mg PO DAILY Repaglinide [Prandin] 0.5 mg PO AC-TID #90 tablet Metoprolol Tartrate [Lopressor] 25 mg PO QAM Albuterol Inhaler [Ventolin Hfa Inhaler] 2 puff INHALATION RT-QID PRN PRN Reason: Asthma Vitamin B Complex 1 each PO DAILY Calcium Acetate 667 mg PO TID Warfarin [Coumadin] 5.5 mg PO DAILY amLODIPine [Norvasc] 10 mg PO HS tiZANidine [Zanaflex] 4 mg PO HS Iron Injections 1 dose IM MOWEFR Discharge Medication List Furosemide [Lasix] 40 mg PO QAM 03/18/19 [History] Levothyroxine Sodium [Synthroid] 112 mcg PO QAM 03/18/19 [History] Rosuvastatin Calcium [Crestor] 10 mg PO DAILY 03/18/19 [History] oxyCODONE-APAP 10-325MG [Percocet 10-325 mg] 1 tab PO TID 03/18/19 [History] Repaglinide [Prandin] 0.5 mg PO AC-TID #90 tablet 03/26/19 [Rx] Albuterol Inhaler [Ventolin Hfa Inhaler] 2 puff INHALATION RT-QID PRN 12/22/19 [History] Calcium Acetate 667 mg PO TID 12/22/19 [History] Metoprolol Tartrate [Lopressor] 25 mg PO QAM 12/22/19 [History] Vitamin B Complex 1 each PO DAILY 12/22/19 [History] Iron Injections 1 dose IM MOWEFR 08/02/20 [History] Warfarin [Coumadin] 5.5 mg PO DAILY 08/02/20 [History] amLODIPine [Norvasc] 10 mg PO HS 08/02/20 [History] tiZANidine [Zanaflex] 4 mg PO HS 08/02/20 [History] Follow up Appointment(s)/Referral(s): Sanjuanita Acosta MD [STAFF PHYSICIAN] - 08/24/20 Patient Instructions/Handouts: *[facility] - (Anesthesia) Endoscopy Discharge Instructions, Diverticulitis Diet (GEN), Diverticulosis (DC), Colorectal Polyps (DC) Activity/Diet/Wound Care/Special Instructions: Start coumadin August 07. Follow-up in office. Repeat colonoscopy in 3 months, October 2020 Discharge Disposition: HOME SELF-CARE
== END 2020-08-05 10:23 | disposition home or self-care (01) ==
LOC: ORWHC2ENDO 06:22
PROVIDERS: ATTEND Surgery Plastic and Reconstructive Surgery
DX: Z12.11 Encounter for screening for malignant neoplasm of colon (principal); D12.2 Benign neoplasm of ascending colon; D12.0 Benign neoplasm of cecum; D12.4 Benign neoplasm of descending colon; D12.3 Benign neoplasm of transverse colon; K64.8 Other hemorrhoids; K57.90 Diverticulosis of intestine, part unspecified, without perforation or abscess without bleeding; K22.8 Other specified diseases of esophagus; Z87.891 Personal history of nicotine dependence; E78.5 Hyperlipidemia, unspecified; E11.9 Type 2 diabetes mellitus without complications; K21.00 Gastro-esophageal reflux disease with esophagitis, without bleeding; I10 Essential (primary) hypertension; N28.9 Disorder of kidney and ureter, unspecified; Z99.2 Dependence on renal dialysis; Z98.84 Bariatric surgery status; Z85.42 Personal history of malignant neoplasm of other parts of uterus; M19.90 Unspecified osteoarthritis, unspecified site; J45.909 Unspecified asthma, uncomplicated; Z79.899 Other long term (current) drug therapy; Z88.6 Allergy status to analgesic agent; Z79.01 Long term (current) use of anticoagulants
CPT/HCPCS: 88305; 84132; 85610; 45385; 43243; 43249; 45381; J2704

== ENCOUNTER 2020-10-08 10:33 | Emergency (ER) | payer MEDICARE, BC ==
[2020-10-08 10:42] VITALS: TEMP 99.4
[2020-10-08 11:26] VITALS: BP 160/71; RESP 18
[2020-10-08] MEDS ORDERED: methylPREDNISolone SOD SUCCI 125 MG/2 ML VIAL IV STA (11:31)
[2020-10-08] MEDS ORDERED: IPRATROPIUM-ALBUTEROL 3 ML NEB INHALATION STA (11:31)
[2020-10-08 12:34] LABS: Basophils % (A) 0 %; Eosinophils % (A) 0 %; HCT 42.3 % (34.0-46.0); Lymphocytes # (A) 1.7 k/uL (1.0-4.8); Lymphocytes % (A) 16 %; MCH 32.2 pg (25.0-35.0); MCHC 33.1 g/dL (31.0-37.0); MCV 97.4 fL (80.0-100.0); Monocytes # (A) 0.5 k/uL (0-1.0); Monocytes % (A) 4 %; Neutrophils % (A) 78 %; Platelet Count 256 k/uL (150-450); RBC 4.34 m/uL (3.80-5.40); RDW 14.1 % (11.5-15.5); WBC 10.3 k/uL (3.8-10.6)
[2020-10-08 12:55] LABS: Albumin 4.3 g/dL (3.5-5.0); Calcium 9.3 mg/dL (8.4-10.2); Potassium 3.3 mmol/L (3.5-5.1); Total Protein 7.3 g/dL (6.3-8.2)
[2020-10-08 13:29] LABS: INR 1.5 (<1.2); Partial Thromboplastin Time 27.5 sec (22.0-30.0); Prothrombin Time 14.7 sec (9.0-12.0)
--- NOTE | 2020-10-08 13:46 | XR ---
EXAMINATION TYPE: XR chest 2V DATE OF EXAM: 10/08/2020 COMPARISON: Chest x-ray 03/23/2019 HISTORY: Difficulty breathing TECHNIQUE: Frontal and lateral views of the chest are obtained. FINDINGS: There is no focal air space opacity, pleural effusion, or pneumothorax seen. The cardiac silhouette size is possibly enlarged although the patient is rotated in technique is apical lordotic. There is persistent elevation of right hemidiaphragm. There is improvement in the interstitium and prominence the central vascularity, central venous catheter has been removed. There are overlying quentin ds. The osseous structures are intact. IMPRESSION: Interval improvement in aeration, patient's volume status. Heart size may be improved.
[2020-10-08 14:04] VITALS: PULSE 95
--- NOTE | 2020-10-08 14:38 | ED ---
Weakness HPI - General Chief complaint: Weakness Stated complaint: lumbar pain, weakness Time Seen by Provider: 10/08/20 11:17 Source: EMS Mode of arrival: EMS Limitations: no limitations - History of Present Illness Initial comments: This 75-year-old female presents with the complaint of some weakness and shortness of breath. She apparently fell to the ground yesterday morning. She could not get back up. She apparently was communicating with a family or friend and the are present initially and state that she may have been confused early this morning. The relate that they called the barn and property manager who had maintenance do a well check on her and they found her on the ground and then called EMS. The patient states that she has been very weak. Her shortness of breath has been somewhat worse recently as well. She has had a slight cough as well. She denies any chest pain or fevers or chills. There has been no leg pain or swelling. He does relate that she apparently fell to the ground. She is complaining of some back pain but states that this is chronic in nature, is present in her lower back, and is unchanged as compared to previous. She denies any head injury. No other complaints or modifying factors. - Related Data Home Medications Medication Instructions Recorded Confirmed Furosemide [Lasix] 40 mg PO DAILY 03/18/19 10/08/20 Levothyroxine Sodium [Synthroid] 112 mcg PO DAILY 03/18/19 10/08/20 Rosuvastatin Calcium [Crestor] 10 mg PO DAILY 03/18/19 10/08/20 oxyCODONE-APAP 10-325MG [Percocet 1 tab PO TID 03/18/19 10/08/20 10-325 mg] Albuterol Inhaler [Ventolin Hfa 2 puff INHALATION RT-QID PRN 12/22/19 10/08/20 Inhaler] Calcium Acetate 1,334 mg PO TID 12/22/19 10/08/20 Metoprolol Tartrate [Lopressor] 25 mg PO DAILY 12/22/19 10/08/20 Iron Injections 1 dose IM MOWEFR 08/02/20 10/08/20 amLODIPine [Norvasc] 10 mg PO HS 08/02/20 10/08/20 tiZANidine [Zanaflex] 4 mg PO HS 08/02/20 10/08/20 Ergocalciferol [Vitamin D2 (1250 1,250 mcg PO MO 10/08/20 10/08/20 Mcg = 51821 Iu)] Lidocaine-Prilocaine Cream [Emla 1 applic TOPICAL DIRECTED PRN 10/08/20 Cream 2.5%/2.5%] SILVER sulfADIAZINE CREAM 1 applic TOPICAL BID 10/08/20 10/08/20 [Silvadene Cream] Warfarin [Coumadin] 6 mg PO HS 10/08/20 10/08/20 amLODIPine [Norvasc] 10 mg PO HS 10/08/20 10/08/20 lisinopriL [Zestril] 5 mg PO HS 10/08/20 10/08/20 tiZANidine [Zanaflex] 4 mg PO HS 10/08/20 10/08/20 Previous Rx's Medication Instructions Recorded Repaglinide [Prandin] 0.5 mg PO AC-TID #90 tablet 03/26/19 Allergies Allergy/AdvReac Type Severity Reaction Status Date / Time naproxen [From Naprosyn] Allergy Dyspnea Verified 10/08/20 13:08 Review of Systems ROS Statement: Those systems with pertinent positive or pertinent negative responses have been documented in the HPI. ROS Other: All systems not noted in ROS Statement are negative. Past Medical History Past Medical History: Asthma, Cancer, Diabetes Mellitus, Hyperlipidemia, Hypertension, Osteoarthritis (OA), Renal Disease, Thyroid Disorder Additional Past Medical History / Comment(s): Hx Uterine cancer 25 yrs ago, Dialysis Mon, Sun and Sun, varicose veins. History of Any Multi-Drug Resistant Organisms: None Reported Past Surgical History: Bariatric Surgery, Cholecystectomy, Hysterectomy, Joint Replacement Additional Past Surgical History / Comment(s): Bilateral knee and right foot surgery. Past Anesthesia/Blood Transfusion Reactions: No Reported Reaction Additional Past Anesthesia/Blood Transfusion Reaction / Comment(s): MOTHER PONV Past Psychological History: No Psychological Hx Reported Smoking Status: Former smoker Past Alcohol Use History: None Reported Past Drug Use History: None Reported - Past Family History Mother Family Medical History: Cancer, Diabetes Mellitus, Hypertension Father Family Medical History: Diabetes Mellitus, Hypertension Sister(s) Family Medical History: Cancer, Diabetes Mellitus General Exam - General Exam Comments Initial Comments: GENERAL: The patient is well nourished and well hydrated. VITAL SIGNS: Heart rate, blood pressure, respiratory rate reviewed as recorded in nurse's notes. EYES: Pupils are round and reactive. Extraocular movements are intact. No conjunctival / lid redness or swelling. ENT: No external evidence of injury, swelling, or ecchymosis. Airway is patent. Throat is clear. NECK: Nontender. No swelling or evidence of injury. No subcutaneous emphysema. Trachea is midline. No thyroid mass. HEART: Regular rate and rhythm. Good peripheral pulses. LUNGS/CHEST: Breath sounds clear and equal bilaterally. No rales, rhonchi, or wheezes. No ecchymosis, subcutaneous emphysema, or tenderness. ABDOMEN: Abdomen soft without tenderness. No palpable masses or organomegaly. No peritoneal signs. No abdominal wall swelling or ecchymosis. EXTREMITIES: No extremity tenderness. Normal muscle tone and function. No thoracolumbar tenderness. No leg swelling noted. NEUROLOGIC: Sensation is grossly intact. Cranial nerve exam reveals face is symmetrical, tongue is midline, speech is clear. SKIN: No abrasions or ecchymosis is noted. No induration or masses noted. PSYCHIATRIC: Alert and oriented. Appropriate behavior and judgment. Limitations: no limitations Course Vital Signs 10/08/20 10/08/20 10/08/20 10:37 11:22 11:25 Temperature 99.4 F Pulse Rate 95 96 Pulse Rate [ 96 Archivist Political History ] Respiratory 20 18 Rate Blood Pressure 172/93 160/71 O2 Sat by Pulse 100 100 Oximetry 10/08/20 10/08/20 14:02 14:13 Temperature Pulse Rate 95 95 Pulse Rate [ Archivist Political History ] Respiratory Rate Blood Pressure O2 Sat by Pulse Oximetry Medical Decision Making - Medical Decision Making The patient was seen and examined. All diagnostics were reviewed. An IV is established and she is placed on a manufacturers representative. No ectopy is identified. EKG shows a normal sinus rhythm at a rate of 95. There is nonspecific ST T-wave abnormality primarily in the lateral leads. No ST elevation is identified. The NV intervals 146, QS duration is 98, and the QTC intervals 457. The chest x-ray apparently is somewhat improved as compared to previous but does show increased central vascularity. CPK is slightly elevated at 579, ever function studies are slightly elevated, creatinine is elevated at 2.9 to the patient does have a chronic renal disease diagnosis and previous was 2.7. Potassium is somewhat low at 3.3 INR is elevated at 1.5, and BNP is elevated at 6015. Overall, it is felt as though patient likely does have a degree of congestive heart failure and this could be causing the dyspnea and weakness. It does not appear as though she is in rhabdomyolysis currently. She appears to have chronic renal failure as well. It is felt as though she would benefit from admission to the hospital for further treatment and diuresis. The case is discussed with Dr. barlow who is agreeable patient will be admitted to a monitor bed with cardiology to consult. Patient feels improved on recheck. Due to her confusion earlier today and fall it is felt as though she may benefit from a computed tomography scan of her b rain despite her denying any known head injury. This is ordered and is pending. - Lab Data Result diagrams: 10/08/20 12:17 10/08/20 12:17 Lab Results 10/08/20 10/08/20 10/08/20 Range/Units 12:17 12:17 12:17 WBC 10.3 (3.8-10.6) k/uL RBC 4.34 (3.80-5.40) m/uL Hgb 14.0 (11.4-16.0) gm/dL Hct 42.3 (34.0-46.0) % MCV 97.4 (80.0-100.0) fL MCH 32.2 (25.0-35.0) pg MCHC 33.1 (31.0-37.0) g/dL RDW 14.1 (11.5-15.5) % Plt Count 256 (150-450) k/uL MPV 8.0 Neutrophils % 78 % Lymphocytes % 16 % Monocytes % 4 % Eosinophils % 0 % Basophils % 0 % Neutrophils # 8.0 H (1.3-7.7) k/uL Lymphocytes # 1.7 (1.0-4.8) k/uL Monocytes # 0.5 (0-1.0) k/uL Eosinophils # 0.0 (0-0.7) k/uL Basophils # 0.0 (0-0.2) k/uL PT 14.7 H (9.0-12.0) sec INR 1.5 H (<1.2) APTT 27.5 (22.0-30.0) sec Sodium 140 (137-145) mmol/L Potassium 3.3 L (3.5-5.1) mmol/L Chloride 100 (98-107) mmol/L Carbon Dioxide 30 (22-30) mmol/L Anion Gap 10 mmol/L BUN 24 H (7-17) mg/dL Creatinine 2.92 H (0.52-1.04) mg/dL Est GFR (CKD-EPI)AfAm 17 (>60 ml/min/1.73 sqM) Est GFR (CKD-EPI)NonAf 15 (>60 ml/min/1.73 sqM) Glucose 139 H (74-99) mg/dL Plasma Lactic Acid Tulio (0.7-2.0) mmol/L Calcium 9.3 (8.4-10.2) mg/dL Total Bilirubin 1.0 (0.2-1.3) mg/dL AST 71 H (14-36) U/L ALT 36 H (4-34) U/L Alkaline Phosphatase 168 H (38-126) U/L Creatine Kinase 579 H (30-135) U/L Troponin I (0.000-0.034) ng/mL NT-Pro-B Natriuret Pep pg/mL Total Protein 7.3 (6.3-8.2) g/dL Albumin 4.3 (3.5-5.0) g/dL Coronavirus (PCR) (Not Detectd) 10/08/20 10/08/20 10/08/20 Range/Units 12:17 12:17 12:17 WBC (3.8-10.6) k/uL RBC (3.80-5.40) m/uL Hgb (11.4-16.0) gm/dL Hct (34.0-46.0) % MCV (80.0-100.0) fL MCH (25.0-35.0) pg MCHC (31.0-37.0) g/dL RDW (11.5-15.5) % Plt Count (150-450) k/uL MPV Neutrophils % % Lymphocytes % % Monocytes % % Eosinophils % % Basophils % % Neutrophils # (1.3-7.7) k/uL Lymphocytes # (1.0-4.8) k/uL Monocytes # (0-1.0) k/uL Eosinophils # (0-0.7) k/uL Basophils # (0-0.2) k/uL PT (9.0-12.0) sec INR (<1.2) APTT (22.0-30.0) sec Sodium (137-145) mmol/L Potassium (3.5-5.1) mmol/L Chloride (98-107) mmol/L Carbon Dioxide (22-30) mmol/L Anion Gap mmol/L BUN (7-17) mg/dL Creatinine (0.52-1.04) mg/dL Est GFR (CKD-EPI)AfAm (>60 ml/min/1.73 sqM) Est GFR (CKD-EPI)NonAf (>60 ml/min/1.73 sqM) Glucose (74-99) mg/dL Plasma Lactic Acid Tulio 1.2 (0.7-2.0) mmol/L Calcium (8.4-10.2) mg/dL Total Bilirubin (0.2-1.3) mg/dL AST (14-36) U/L ALT (4-34) U/L Alkaline Phosphatase (38-126) U/L Creatine Kinase (30-135) U/L Troponin I 0.020 (0.000-0.034) ng/mL NT-Pro-B Natriuret Pep 6050 pg/mL Total Protein (6.3-8.2) g/dL Albumin (3.5-5.0) g/dL Coronavirus (PCR) (Not Detectd) 10/08/20 Range/Units 12:17 WBC (3.8-10.6) k/uL RBC (3.80-5.40) m/uL Hgb (11.4-16.0) gm/dL Hct (34.0-46.0) % MCV (80.0-100.0) fL MCH (25.0-35.0) pg MCHC (31.0-37.0) g/dL RDW (11.5-15.5) % Plt Count (150-450) k/uL MPV Neutrophils % % Lymphocytes % % Monocytes % % Eosinophils % % Basophils % % Neutrophils # (1.3-7.7) k/uL Lymphocytes # (1.0-4.8) k/uL Monocytes # (0-1.0) k/uL Eosinophils # (0-0.7) k/uL Basophils # (0-0.2) k/uL PT (9.0-12.0) sec INR (<1.2) APTT (22.0-30.0) sec Sodium (137-145) mmol/L Potassium (3.5-5.1) mmol/L Chloride (98-107) mmol/L Carbon Dioxide (22-30) mmol/L Anion Gap mmol/L BUN (7-17) mg/dL Creatinine (0.52-1.04) mg/dL Est GFR (CKD-EPI)AfAm (>60 ml/min/1.73 sqM) Est GFR (CKD-EPI)NonAf (>60 ml/min/1.73 sqM) Glucose (74-99) mg/dL Plasma Lactic Acid Tulio (0.7-2.0) mmol/L Calcium (8.4-10.2) mg/dL Total Bilirubin (0.2-1.3) mg/dL AST (14-36) U/L ALT (4-34) U/L Alkaline Phosphatase (38-126) U/L Creatine Kinase (30-135) U/L Troponin I (0.000-0.034) ng/mL NT-Pro-B Natriuret Pep pg/mL Total Protein (6.3-8.2) g/dL Albumin (3.5-5.0) g/dL Coronavirus (PCR) Not Detected (Not Detectd) Disposition Clinical Impression: Weakness, Dyspnea, Congestive heart failure, Fall, Chronic renal failure, Hypokalemia, Elevated CPK, Transaminitis Disposition: ADMITTED IP TO THIS [facility] Condition: Fair Is patient prescribed a controlled substance at d/c from ED?: No Referrals: Gautam Rizvi DO [Primary Care Provider] - 1-2 days Time of Disposition: 14:37 Decision Date: 10/08/20 Decision Time: 14:37
[2020-10-08] MEDS ORDERED: FUROSEMIDE 10 MG/ML 4 ML VIAL IV STA (14:39)
[2020-10-08] MEDS ORDERED: NITROGLYCERIN OINT 1 INCH/GM PACKET TOPICAL STA (14:39)
[2020-10-08] MEDS ORDERED: ALBUTEROL HFA INHALER INHALATION PRN (14:42)
[2020-10-08] MEDS ORDERED: LIDOCAINE-PRILOCAINE 2.5-2.5% CREAM 5 GM TUBE TOPICAL PRN (14:42)
[2020-10-08] MEDS ORDERED: FUROSEMIDE 10 MG/ML 4 ML VIAL IV SCH ×2 (14:45→21:00)
[2020-10-08] MEDS ORDERED: IRON INJECTIONS IM SCH (14:45)
[2020-10-08] MEDS ORDERED: oxyCODONE-APAP 10-325MG 1 EACH TAB PO SCH (16:00)
[2020-10-08] MEDS ORDERED: CALCIUM ACETATE 667 MG TAB PO SCH (16:00)
--- NOTE | 2020-10-08 16:21 | CT ---
EXAMINATION TYPE: CT brain wo con DATE OF EXAM: 10/08/2020 COMPARISON: 03/18/2019 HISTORY: 75-year-old female moderate to severe head trauma. Confusion, altered mental status TECHNIQUE: Examination was done in axial plane without intravenous contrast. Coronal and sagittal r econstructions performed. CT DLP: 1137.4 mGycm Automated exposure control for dose reduction was used. 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 Admixed subacute blood products are present with some possible admixed acute hemorrhage anteriorly an d inferiorly, axial image 7. There is associated mass effect onto the right cerebrum effacing the right lateral ventricle and cont ributing to 1.7 cm of leftward midline shift. There is leftward subfalcine herniation but no downward transtentorial herniation seen at this time. Interval enlargement of the left lateral ventricle probably due to some degree of CSF obstruction at the level of the third ventricle. Overall das-white matter differentiation appears maintained at this time. Partially empty sella. There seems to be some right lateral periorbital soft tissue swelling. Paranasal sinuses and mastoid air cells well pneumatized. IMPRESSION: 1. Very large subdural hematoma along the right lateral convexity measuring up to 2.3 cm thick. This is predominantly a chronic subdural but with strands of admixed subacute blood. Anteriorly and inferi lourdes, we suspect a small amount of admixed acute hemorrhage. 2. This causes significant mass effect with 1.7 cm leftward midline shift and effacement of the right lateral ventricle and third ventricle. 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 3. Leftward subfalcine herniation but no loss of das-white matter differentiation to suggest acute i nfarct at this time. 4. No downward transtentorial herniation seen. 5. Right lateral periorbital soft tissue swelling. Critical findings called to Dr. Joya in the ER at 4:16 PM.
--- NOTE | 2020-10-08 17:17 | ED ---
Medical Decision Making - Medical Decision Making Patient initially was to be admitted to this facility but computed tomography scan showed evidence of a very large right-sided hematoma with 2.3 cm thickness evidence of significant mass effect 1.7 cm left forward midline shift with effacement of the right ventricle and third ventricle evidence of early developing obstructive hydrocephalus left lateral ventricle left forward self also herniation please see the complete report the patient will be transferred to [facility] I did discuss the case with Dr. Orellana as well as Dr. Suggs - Lab Data Result diagrams: 10/08/20 12:17 10/08/20 12:17 Lab Results 10/08/20 10/08/20 10/08/20 Range/Units 12:17 12:17 12:17 WBC 10.3 (3.8-10.6) k/uL RBC 4.34 (3.80-5.40) m/uL Hgb 14.0 (11.4-16.0) gm/dL Hct 42.3 (34.0-46.0) % MCV 97.4 (80.0-100.0) fL MCH 32.2 (25.0-35.0) pg MCHC 33.1 (31.0-37.0) g/dL RDW 14.1 (11.5-15.5) % Plt Count 256 (150-450) k/uL MPV 8.0 Neutrophils % 78 % Lymphocytes % 16 % Monocytes % 4 % Eosinophils % 0 % Basophils % 0 % Neutrophils # 8.0 H (1.3-7.7) k/uL Lymphocytes # 1.7 (1.0-4.8) k/uL Monocytes # 0.5 (0-1.0) k/uL Eosinophils # 0.0 (0-0.7) k/uL Basophils # 0.0 (0-0.2) k/uL PT 14.7 H (9.0-12.0) sec INR 1.5 H (<1.2) APTT 27.5 (22.0-30.0) sec Sodium 140 (137-145) mmol/L Potassium 3.3 L (3.5-5.1) mmol/L Chloride 100 (98-107) mmol/L Carbon Dioxide 30 (22-30) mmol/L Anion Gap 10 mmol/L BUN 24 H (7-17) mg/dL Creatinine 2.92 H (0.52-1.04) mg/dL Est GFR (CKD-EPI)AfAm 17 (>60 ml/min/1.73 sqM) Est GFR (CKD-EPI)NonAf 15 (>60 ml/min/1.73 sqM) Glucose 139 H (74-99) mg/dL Plasma Lactic Acid Tulio (0.7-2.0) mmol/L Calcium 9.3 (8.4-10.2) mg/dL Total Bilirubin 1.0 (0.2-1.3) mg/dL AST 71 H (14-36) U/L ALT 36 H (4-34) U/L Alkaline Phosphatase 168 H (38-126) U/L Creatine Kinase 579 H (30-135) U/L Troponin I (0.000-0.034) ng/mL NT-Pro-B Natriuret Pep pg/mL Total Protein 7.3 (6.3-8.2) g/dL Albumin 4.3 (3.5-5.0) g/dL TSH (0.465-4.680) mIU/L Coronavirus (PCR) (Not Detectd) 10/08/20 10/08/20 10/08/20 Range/Units 12:17 12:17 12:17 WBC (3.8-10.6) k/uL RBC (3.80-5.40) m/uL Hgb (11.4-16.0) gm/dL Hct (34.0-46.0) % MCV (80.0-100.0) fL MCH (25.0-35.0) pg MCHC (31.0-37.0) g/dL RDW (11.5-15.5) % Plt Count (150-450) k/uL MPV Neutrophils % % Lymphocytes % % Monocytes % % Eosinophils % % Basophils % % Neutrophils # (1.3-7.7) k/uL Lymphocytes # (1.0-4.8) k/uL Monocytes # (0-1.0) k/uL Eosinophils # (0-0.7) k/uL Basophils # (0-0.2) k/uL PT (9.0-12.0) sec INR (<1.2) APTT (22.0-30.0) sec Sodium (137-145) mmol/L Potassium (3.5-5.1) mmol/L Chloride (98-107) mmol/L Carbon Dioxide (22-30) mmol/L Anion Gap mmol/L BUN (7-17) mg/dL Creatinine (0.52-1.04) mg/dL Est GFR (CKD-EPI)AfAm (>60 ml/min/1.73 sqM) Est GFR (CKD-EPI)NonAf (>60 ml/min/1.73 sqM) Glucose (74-99) mg/dL Plasma Lactic Acid Tulio 1.2 (0.7-2.0) mmol/L Calcium (8.4-10.2) mg/dL Total Bilirubin (0.2-1.3) mg/dL AST (14-36) U/L ALT (4-34) U/L Alkaline Phosphatase (38-126) U/L Creatine Kinase (30-135) U/L Troponin I 0.020 (0.000-0.034) ng/mL NT-Pro-B Natriuret Pep 6050 pg/mL Total Protein (6.3-8.2) g/dL Albumin (3.5-5.0) g/dL TSH (0.465-4.680) mIU/L Coronavirus (PCR) (Not Detectd) 10/08/20 10/08/20 10/08/20 Range/Units 12:17 12:17 16:21 WBC (3.8-10.6) k/uL RBC (3.80-5.40) m/uL Hgb (11.4-16.0) gm/dL Hct (34.0-46.0) % MCV (80.0-100.0) fL MCH (25.0-35.0) pg MCHC (31.0-37.0) g/dL RDW (11.5-15.5) % Plt Count (150-450) k/uL MPV Neutrophils % % Lymphocytes % % Monocytes % % Eosinophils % % Basophils % % Neutrophils # (1.3-7.7) k/uL Lymphocytes # (1.0-4.8) k/uL Monocytes # (0-1.0) k/uL Eosinophils # (0-0.7) k/uL Basophils # (0-0.2) k/uL PT (9.0-12.0) sec INR (<1.2) APTT (22.0-30.0) sec Sodium (137-145) mmol/L Potassium (3.5-5.1) mmol/L Chloride (98-107) mmol/L Carbon Dioxide (22-30) mmol/L Anion Gap mmol/L BUN (7-17) mg/dL Creatinine (0.52-1.04) mg/dL Est GFR (CKD-EPI)AfAm (>60 ml/min/1.73 sqM) Est GFR (CKD-EPI)NonAf (>60 ml/min/1.73 sqM) Glucose (74-99) mg/dL Plasma Lactic Acid Tulio (0.7-2.0) mmol/L Calcium (8.4-10.2) mg/dL Total Bilirubin (0.2-1.3) mg/dL AST (14-36) U/L ALT (4-34) U/L Alkaline Phosphatase (38-126) U/L Creatine Kinase (30-135) U/L Troponin I 0.028 (0.000-0.034) ng/mL NT-Pro-B Natriuret Pep pg/mL Total Protein (6.3-8.2) g/dL Albumin (3.5-5.0) g/dL TSH 1.900 (0.465-4.680) mIU/L Coronavirus (PCR) Not Detected (Not Detectd) - Radiology Data Radiology results: report reviewed (I did receive a call from the radiologist CT of the brain showed a very large subdural hematoma which appear to be chronic 2.3 cm thick with 1.7 cm left forward midline shift and effacement of the right lateral ventricle and third ventricle also suspicious for developing obstructive hydrocephalus in), image reviewed Disposition Clinical Impression: Weakness, Dyspnea, Congestive heart failure, Fall, Chronic renal failure, Hypokalemia, Elevated CPK, Transaminitis, Subdural hematoma Disposition: OTHER INSTITUTION NOT DEFINED Condition: Fair Referrals: Gautam Rizvi DO [Primary Care Provider] - 1-2 days - Out of Hospital Transfer - Req. Specs Out of Hospital Transfer - Requested Specifics: Other Emergency Center
[2020-10-08] MEDS ORDERED: NON FORMULARY DRUG (Repaglinide 0.5 MG Tab) PO SCH (17:30)
[2020-10-08] MEDS ORDERED: WARFARIN 3 MG TAB PO ONE (18:00)
[2020-10-08] MEDS ORDERED: NITROGLYCERIN OINT 1 INCH/GM PACKET TOPICAL SCH (18:00)
[2020-10-08] MEDS ORDERED: lisinopriL 5 MG TAB PO SCH (21:00)
[2020-10-08] MEDS ORDERED: amLODIPine 10 MG TAB PO SCH (21:00)
[2020-10-08] MEDS ORDERED: tiZANidine 4 MG TAB PO SCH (21:00)
[2020-10-09] MEDS ORDERED: LEVOTHYROXINE 112 MCG TAB PO SCH (06:30)
[2020-10-09] MEDS ORDERED: METOPROLOL TARTRATE 25 MG TAB PO SCH (09:00)
[2020-10-09] MEDS ORDERED: ATORVASTATIN 20 MG TAB PO SCH (09:00)
--- NOTE | 2020-10-09 13:45 | ECHOF ---
Referral Reason:Heart Failure MEASUREMENTS -------- HEIGHT: 160.0 cm WEIGHT: 115.7 kg BP: IVSd: 1.3 cm (0.6 - 1.1) LVIDd: 4.7 cm (3.9 - 5.3) LVPWd: 1.3 cm (0.6 - 1.1) IVSs: 1.6 cm LVIDs: 2.9 cm LVPWs: 1.9 cm Ao Diam: 3.0 cm (2.0 - 3.7) AV Cusp: 1.6 cm (1.5 - 2.6) LA Diam: 3.4 cm (2.7 - 3.8) MV EXCURSION: 15.965 mm (> 18.000) MV EF SLOPE: 47 mm/s (70 - 150) EPSS: 2.3 cm MV E Gurwinder: 0.86 m/s MV DecT: 158 ms MV A Gurwinder: 1.26 m/s MV E/A Ratio: 0.68 RAP: 5.00 mmHg RVSP: 16.77 mmHg FINDINGS -------- This was a technically difficult study with suboptimal views. The left ventricular size is normal. There is moderate concentric left ventricular hypertrophy. O verall left ventricular systolic function is normal with, an EF between 55 - 60 %. The right ventricle is normal in size. The left atrial size is normal. The right atrial size is normal. Lumason used The aortic valve is trileaflet and appears structurally normal. The mitral valve is normal. There is trace mitral regurgitation. The tricuspid valve appears structurally normal. Trace tricuspid regurgitation present. Right davina tricular systolic pressure is normal at < 35 mmHg. There is no pulmonic regurgitation present. The aortic root size is normal. IVC Not well visulized. There is no pericardial effusion. CONCLUSIONS -------- 1. The left ventricular size is normal. 2. There is moderate concentric left ventricular hypertrophy. 3. Overall left ventricular systolic function is normal with, an EF between 55 - 60 %. 4. There is trace mitral regurgitation. 5. Trace tricuspid regurgitation present. 6. There is no pericardial effusion. ROVING FRAME TENDER: Daphne Benavidez [facility]
[2020-10-11] MEDS ORDERED: ERGOCALCIFEROL 1,250 MCG (50,000 IU) CAPSULE PO SCH (14:42)
== END 2020-10-08 18:59 | disposition other institution (70) ==
LOC: EC 10:33 → UNDOADMOB 14:54 → 6NMEDSUR 14:54 → EC 18:59
DX: I13.0 Hypertensive heart and chronic kidney disease with heart failure and stage 1 through stage 4 chronic kidney disease, or unspecified chronic kidney disease (principal); I50.9 Heart failure, unspecified; N18.9 Chronic kidney disease, unspecified; E87.6 Hypokalemia; R74.01 Elevation of levels of liver transaminase levels; E11.22 Type 2 diabetes mellitus with diabetic chronic kidney disease; E78.5 Hyperlipidemia, unspecified; J45.909 Unspecified asthma, uncomplicated; M19.90 Unspecified osteoarthritis, unspecified site; Z87.891 Personal history of nicotine dependence; Z79.01 Long term (current) use of anticoagulants; Z79.51 Long term (current) use of inhaled steroids; Z79.890 Hormone replacement therapy; Z79.899 Other long term (current) drug therapy; Z83.3 Family history of diabetes mellitus; Z82.49 Family history of ischemic heart disease and other diseases of the circulatory system
CPT/HCPCS: 96374; 96375; 99285; 36415; 94640; 93005; 83880; 80053; 82550; 83605; 84443; 84484; 85025; 85610; 85730; 87040; 87635; 71046; 70450; C8929; J1940; J2930; Q9950; 93306

== ENCOUNTER → 2021-04-12 | Outpatient (CLI) | payer MEDICARE, BC ==
--- NOTE | 2021-04-12 12:21 | CT ---
EXAMINATION TYPE: CT brain wo con DATE OF EXAM: 04/12/2021 COMPARISON: CT dated 10/08/2020 HISTORY: Cervicalgia, MRI Clearance CT DLP: 1090.4 mGycm Automated exposure control for dose reduction was used. TECHNIQUE: CT scan of the brain is performed without IV contrast administration. FINDINGS: Interval drainage of the previously seen right chronic subdural hematoma. Questionable minimal residu al focal subdural collection measuring 2 mm without significant mass effect. Resolution of the previo usly seen mass effect, midline shift and transtentorial herniation. Tiny right high frontal cortical area of encephalomalacia. No acute intracranial hemorrhage or gross acute cortical infarct. Bilateral cerebral white matter hyp odensities likely representing chronic microvascular ischemic changes. Scattered arterial atheroscler otic calcifications. No ventricular obstruction. Unremarkable basal cisterns, sella and CP angles. No gross space-occupying lesion, vasogenic edema or mass effect. No gross orbital abnormality. Chroni c inflammatory changes of the right maxillary sinus. Opacified right mastoid air cells with sclerotic changes suggestive of chronic mastoiditis. Osteopenia. Right frontoparietal rober holes. IMPRESSION: Interval drainage of the previously seen right chronic subdural hematoma with interval complete resol ution of the previously seen mass effect, midline shift and transtentorial herniation. No acute intra cranial hemorrhage or gross acute cortical infarct. Other chronic and incidental findings as describe d above.
--- NOTE | 2021-04-12 13:33 | CT ---
EXAMINATION TYPE: CT soft tissue neck wo con DATE OF EXAM: 04/12/2021 HISTORY: Cervicalgia, MRI Clearance COMPARISON: None available CT DLP: 465.4 mGycm. Automated Exposure Control for Dose Reduction was Utilized. TECHNIQUE: CT scan of the neck is performed without IV contrast administration. Axial images are obt ained, coronal and sagittal reformatted images are reviewed. FINDINGS: Unremarkable nasopharynx, oropharynx, hypopharynx, larynx and visualized portion of the trachea and e sophagus. Faint millimetric calcification in the right thyroid lobe, please correlate with thyroid ul trasound results. Symmetrical unremarkable parotid and submandibular salivary glands. Scattered arterial atherosclerotic calcifications with tortuous neck arteries and medialization of th e right common carotid artery seen indenting the right posterolateral aspect of the hypopharynx. Scattered subcentimeter bilateral cervical and submandibular lymph nodes, nonspecific. No pathologica lly enlarged lymph nodes in the chest. Chronic inflammatory changes of the right maxillary sinus. Hyp opneumatized right mastoid cells. Degenerative changes at C4-5, C5-6 and C6-7 levels. IMPRESSION: No definite lesion or suspicious lymphadenopathy seen in the neck. Incidental findings as described a henrik.
== END | disposition home or self-care (01) ==
LOC: RADCTMAIN 11:19
PROVIDERS: ATTEND Psychiatry & Neurology Neurology
DX: M47.812 Spondylosis without myelopathy or radiculopathy, cervical region (principal); I62.03 Nontraumatic chronic subdural hemorrhage
CPT/HCPCS: 70450; 70490

== ENCOUNTER → 2021-04-14 | Outpatient (CLI) | payer MEDICARE, BC ==
--- NOTE | 2021-04-14 15:15 | MR ---
EXAMINATION TYPE: MR brain wo con DATE OF EXAM: 04/14/2021 COMPARISON: CT dated 04/12/2021 INDICATION: 75-year-old female, head and neck pain, prior brain surgery for brain bleed. TECHNIQUE: Standard multiplanar, multisequence MRI of the brain without IV contrast administration. FINDINGS: Brain volume loss changes, likely age-related. Bilateral cerebral white matter and pontine T2 and FLA IR hyperintensities, likely representing chronic microvascular ischemic changes. Questionable small a raegan of encephalomalacia in the right postcentral gyrus, possibly related to sequela of previous surge ry. Partial empty sella. Questionable right pontine DVA. No intracranial hemorrhage or acute infarct. No midline shift or herniation. Unremarkable basal ciste rns and CP angles. No space-occupying lesion, vasogenic edema or mass effect. Preserved signal void p attern of major intracranial vessels. No gross orbital abnormality. Mucosal thickening of the right maxillary sinus with chronic inflammatory changes. Milder mucosal thi ckening of the ethmoid air cells. Clear mastoid air cells. Right parietal rober holes. Tiny cyst along the medial aspect of the right atlantoaxial articulation. IMPRESSION: Brain volume loss changes, likely age-related, and suspected bilateral cerebral white matter chronic microvascular ischemic changes as described above. No intracranial hemorrhage or acute infarct. No space-occupying lesion by this nonenhanced MRI. Incid ental findings as described above.
== END | disposition home or self-care (01) ==
LOC: RADMRIMAIN 11:35
PROVIDERS: ATTEND Psychiatry & Neurology Neurology
DX: R90.89 Other abnormal findings on diagnostic imaging of central nervous system (principal); M54.2 Cervicalgia
CPT/HCPCS: 70551

== ENCOUNTER → 2022-01-03 | Outpatient (CLI) | payer MEDICARE, BC ==
--- NOTE | 2022-01-04 07:38 | MM ---
Reason for Exam: Screening (asymptomatic). Last mammogram was performed 1 year(s) and 7 month(s) ago. Patient History: Menarche at age 14. Left ovary removed at age 48. Right ovary removed at age 48. Hysterectomy at age 48. Postmenopausal. Risk Values: Paola 5 year model risk: 1.2%. NCI Lifetime model risk: 2.4%. Prior Study Comparison: 02/26/2018 Bilateral Screening Mammogram, [facility]. 03/14/2019 Bilateral Screening Mammogram, [facility]. 06/01/2020 Bilateral Screening Mammogram, [facility]. Tissue Density: The breast tissue is heterogeneously dense. This may lower the sensitivity of mammography. Findings: Analyzed By CAD. There is no suspicious group of microcalcifications or new suspicious mass in either breast. Overall Assessment: Benign, BI-RAD 2 Management: Screening Mammogram of both breasts in 1 year. A clinical breast exam by your physician is recommended on an annual basis and results should be correlated with mammographic findings. Electronically signed and approved by: Henry Guido M.D. Radiologis
== END | disposition home or self-care (01) ==
LOC: RADMAMWWP 07:47
PROVIDERS: ATTEND Family Medicine
DX: Z12.31 Encounter for screening mammogram for malignant neoplasm of breast (principal); Z78.0 Asymptomatic menopausal state; Z90.721 Acquired absence of ovaries, unilateral
CPT/HCPCS: 77063; 77067

== ENCOUNTER 2022-01-12 06:29 | Day surgery (SDC) | payer MEDICARE, BC ==
[2022-01-09 15:44] VITALS: BMI 39.8
[2022-01-12] MEDS ORDERED: LIDOCAINE 1% (10MG/ML) FOR IV START INTRADERMA PRN (07:15)
[2022-01-12] MEDS ORDERED: LACTATED RINGERS 1,000 ML IV SCH (07:15)
[2022-01-12] MEDS ORDERED: SODIUM CHLORIDE 0.9% 1,000 ML IV ONE ×2 (07:20)
[2022-01-12] MEDS ORDERED: LACTATED RINGERS 1,000 ML IV ONE (07:25)
[2022-01-12 07:26] VITALS: TEMP 97
[2022-01-12 07:33] LABS: Glucose,Whole Blood 129 mg/dL (70-110)
[2022-01-12] MEDS ORDERED: PROPOFOL 10 MG/ML 20 ML VIAL IV ONE (07:59)
[2022-01-12] MEDS ORDERED: ePHEDrine 50 MG/ML 1 ML VIAL ONE (07:59)
--- NOTE | 2022-01-12 07:59 | P.GSHP ---
History of Present Illness H&P Date: 01/12/22 CHIEF COMPLAINT: GERD and colon screen HISTORY OF PRESENT ILLNESS: The patient is a 76-year-old female who presents with gastroesophageal reflux disease and need for colon screen. Upper and lower endoscopy were offered for further evaluation and management. PAST MEDICAL HISTORY: Please see list. PAST SURGICAL HISTORY: Please see list. MEDICATIONS: Please see list. ALLERGIES: Please see list. SOCIAL HISTORY: No illicit drug use FAMILY HISTORY: No reports of Crohn disease or ulcerative colitis. REVIEW OF ORGAN SYSTEMS: CONSTITUTIONAL: No reports of fevers or chills. GI: Denies any blood in stools or constipation. PHYSICAL EXAM: VITAL SIGNS: Stable GENERAL: Well-developed pleasant in no acute distress. HEENT: No scleral icterus. Extraocular movements grossly intact. Moist buccal mucosa. NECK: Supple without lymphadenopathy. CHEST: Unlabored respirations. Equal bilateral excursions. CARDIOVASCULAR: Regular rate and rhythm. Distal 2+ pulses. ABDOMEN: Soft, nondistended. MUSCULOSKELETAL: No clubbing, cyanosis, or edema. ASSESSMENT: 1. Gastroesophageal reflux disease 2. Colon screen. PLAN: 1. Recommend proceeding with an upper and lower endoscopy Past Medical History Past Medical History: Asthma, Cancer, Diabetes Mellitus, Dialysis, Hyperlipidemia, Hypertension, Myocardial Infarction (MD), Osteoarthritis (OA), Renal Disease, Thyroid Disorder Additional Past Medical History / Comment(s): Hx Uterine cancer 25 yrs ago, hemodialysis Mon, Sun and Sun, varicose veins., "mild heart attack"" "brain bleed twice" chronic diarrhea, hx "14 polyps", "chronic back pain", anemia, currentl edema kashif feet, diet control diabetic Last Myocardial Infarction Date:: unknown History of Any Multi-Drug Resistant Organisms: None Reported Past Surgical History: Appendectomy, Bariatric Surgery, Cholecystectomy, Hysterectomy, Joint Replacement, Tonsillectomy Additional Past Surgical History / Comment(s): gastric bypass, surgery after fall -fx rt leg and foot, kashif knee replacement, kashif cataracts, surgery x 2 or "brain bleed", fistula for dialysis Past Anesthesia/Blood Transfusion Reactions: Family History of Problems w/ Anesthesia Additional Past Anesthesia/Blood Transfusion Reaction / Comment(s): MOTHER PONV Smoking Status: Former smoker - Past Family History Mother Family Medical History: Cancer Father Family Medical History: Diabetes Mellitus, Hypertension Sister(s) Family Medical History: Cancer Medications and Allergies Home Medications Medication Instructions Recorded Confirmed Type Furosemide [Lasix] 40 mg PO DAILY 03/18/19 01/09/22 History Levothyroxine Sodium [Synthroid] 112 mcg PO DAILY 03/18/19 01/09/22 History Rosuvastatin Calcium [Crestor] 10 mg PO HS 03/18/19 01/09/22 History Albuterol Inhaler [Ventolin Hfa 2 puff INHALATION RT-QID PRN 12/22/19 01/09/22 History Inhaler] Calcium Acetate 667 mg PO DIRECTED 12/22/19 01/09/22 History Metoprolol Tartrate [Lopressor] 50 mg PO BID 12/22/19 01/09/22 History amLODIPine [Norvasc] 10 mg PO HS 08/02/20 01/09/22 History Ergocalciferol [Vitamin D2 (1250 1,250 mcg PO MO 10/08/20 01/09/22 History Mcg = 31800 Iu)] Nephro-Karla Tab 1 tab PO HS 01/09/22 01/09/22 History lisinopriL 40 mg PO DAILY 01/09/22 01/09/22 History oxyCODONE HCL/ACETAMINOPHEN 1 tab PO TID 01/09/22 01/09/22 History [Percocet 7.5-325 mg] Allergies Allergy/AdvReac Type Severity Reaction Status Date / Time naproxen [From Naprosyn] Allergy Dyspnea Verified 01/09/22 15:31 blood thinner Allergy "brain Uncoded 01/09/22 15:31 bleed" Surgical - Exam Vital Signs Temp Pulse Resp BP Pulse Ox 97 F L 58 L 18 170/76 95 01/12/22 07:25 01/12/22 07:25 01/12/22 07:25 01/12/22 07:25 01/12/22 07:25 Results - Labs Abnormal Lab Results - Last 24 Hours (Table) 01/12/22 Range/Units 07:30 POC Glucose (mg/dL) 129 H (70-110) mg/dL
--- NOTE | 2022-01-12 08:14 | P.PCN ---
Date of Procedure: 01/12/22 Description of Procedure: PREOPERATIVE DIAGNOSES: 1. Dysphagia 2. Nausea and vomiting. 3. History of gastric bypass. 4. History of gastric ulcers. POSTOPERATIVE DIAGNOSES: 1. Dysphagia 2. Nausea and vomiting. 3. History of gastric bypass. 4. History of gastric ulcers. PROCEDURE PERFORMED: Esophagogastrojejunoscopy. SURGEON: Sanjuanita Acosta MD ANESTHESIA: MAC. INDICATIONS: The patient is a 76-year-old female with prior history of Rene-en-Y gastric bypass over 10 years ago. She has dysphagia with nausea and vomiting. With history of Rene-en-Y gastric bypass, upper endoscopy was offered for further evaluation and management. DESCRIPTION: Patient was brought to the endoscopy suite and laid in the left lateral decubitus position. After adequate IV sedation, a bite block was placed. An Olympus gastroscope was passed along the posterior oropharynx down to the distal esophagus where the squamocolumnar junction was found at approximately 38 cm from the incisors. Gastric pouch of 5 cm was identified unremarkable. No evidence of foreign body was found. No evidence of active gastrojejunal ulcerations were encountered. The GI tract was desufflated. The patient tolerated the procedure well. FINDINGS: 1. No acute gastrojejunal ulceration. 2. No foreign body found along the anastomosis. PLAN: 1. Recommend upper endoscopy as needed.
[2022-01-12 09:09] VITALS: RESP 16
--- NOTE | 2022-01-12 09:12 | P.PCN ---
Date of Procedure: 01/12/22 Description of Procedure: PREOPERATIVE DIAGNOSIS: Personal history of colon polyps End-stage renal disease High-risk colon polyps POSTOPERATIVE DIAGNOSIS: Tubular adenoma, ascending colon Tubular adenoma transverse colon, multiple Sigmoid diverticulosis, severe Internal hemorrhoids, grade 2 OPERATION: Colonoscopy to the ileocecal valve and appendiceal orifice, cecum Colonoscopy with hot snare polypectomy Colonoscopy with cold forceps biopsy SURGEON: Sanjuanita Acosta MD. ANESTHESIA: MAC. INDICATIONS: The patient is an 76-year-old male who presents personal history of colon polyps. Last colonoscopy less than 5 years. Benefits and risks were described and informed consent was obtained. DESCRIPTION OF PROCEDURE: The patient had undergone Sutab prep. The patient had been brought into the operating room and laid in the left lateral decubitus position. After adequate intravenous sedation, the rectum was examined with 2% lidocaine jelly. External hemorrhoids were encountered. The rectal tone was within normal limits. No lesions were palpated in the rectal vault. An Olympus colonoscope was advanced until the cecum, ileocecal valve and appendiceal orifice were clearly viewed. The prep was good. Sigmoid diverticulosis, severe, was encountered. Colonic polyps were found and removed. No evidence of focal colitis was found. Retroflexion of the scope demonstrated grade 2 internal hemorrhoids without active bleeding or inflammation. The colon was desufflated. The patient had tole rated the procedure well. Withdrawal time was over 6 minutes. FINDINGS: Aronchick preparation quality scale 2 (1-5) Internal hemorrhoids, grade 2 External hemorrhoids, grade 2. No arteriovenous malformations. Sigmoid diverticulosis, severe Removal of 6 polyps: - Snare polypectomy transverse colon 5, 5 to 20 mm tubulovillous adenoma polyps, piecemeal resection. - Cold forceps biopsy at ascending colon, 4 mm polyp. No focal colitis. RECOMMENDATIONS: For piecemeal resection of 20 mm, tubulovillous adenoma repeat colonoscopy 6 months, June 2022 Plan - Discharge Summary New Discharge Prescriptions: Continue Furosemide [Lasix] 40 mg PO DAILY Levothyroxine Sodium [Synthroid] 112 mcg PO DAILY Rosuvastatin Calcium [Crestor] 10 mg PO HS Metoprolol Tartrate [Lopressor] 50 mg PO BID Albuterol Inhaler [Ventolin Hfa Inhaler] 2 puff INHALATION RT-QID PRN PRN Reason: Asthma Calcium Acetate 667 mg PO DIRECTED amLODIPine [Norvasc] 10 mg PO HS Ergocalciferol [Vitamin D2 (1250 Mcg = 80792 Iu)] 1,250 mcg PO MO lisinopriL 40 mg PO DAILY oxyCODONE HCL/ACETAMINOPHEN [Percocet 7.5-325 mg] 1 tab PO TID Nephro-Karla Tab 1 tab PO HS Discharge Medication List Furosemide [Lasix] 40 mg PO DAILY 03/18/19 [History] Levothyroxine Sodium [Synthroid] 112 mcg PO DAILY 03/18/19 [History] Rosuvastatin Calcium [Crestor] 10 mg PO HS 03/18/19 [History] Albuterol Inhaler [Ventolin Hfa Inhaler] 2 puff INHALATION RT-QID PRN 12/22/19 [History] Calcium Acetate 667 mg PO DIRECTED 12/22/19 [History] Metoprolol Tartrate [Lopressor] 50 mg PO BID 12/22/19 [History] amLODIPine [Norvasc] 10 mg PO HS 08/02/20 [History] Ergocalciferol [Vitamin D2 (1250 Mcg = 43901 Iu)] 1,250 mcg PO MO 10/08/20 [History] Nephro-Karla Tab 1 tab PO HS 01/09/22 [History] lisinopriL 40 mg PO DAILY 01/09/22 [History] oxyCODONE HCL/ACETAMINOPHEN [Percocet 7.5-325 mg] 1 tab PO TID 01/09/22 [History] Follow up Appointment(s)/Referral(s): Sanjuanita Acosta MD [STAFF PHYSICIAN] - 01/31/22 Patient Instructions/Handouts: *Surgery [facility] - (Anesthesia) Endoscopy Discharge Instructions, Colonoscopy (DC), Upper Endoscopy (DC) Activity/Diet/Wound Care/Special Instructions: Repeat colonoscopy 6 months, June 2021 Discharge Disposition: HOME SELF-CARE
[2022-01-12 09:21] VITALS: BP 143/85; PULSE 70
== END 2022-01-12 10:30 | disposition home or self-care (01) ==
LOC: ORWHC2ENDO 06:29
PROVIDERS: ATTEND Surgery Plastic and Reconstructive Surgery
DX: D12.3 Benign neoplasm of transverse colon (principal); D12.2 Benign neoplasm of ascending colon; K57.30 Diverticulosis of large intestine without perforation or abscess without bleeding; K64.1 Second degree hemorrhoids; K21.9 Gastro-esophageal reflux disease without esophagitis; E11.22 Type 2 diabetes mellitus with diabetic chronic kidney disease; I12.0 Hypertensive chronic kidney disease with stage 5 chronic kidney disease or end stage renal disease; N18.6 End stage renal disease; E78.5 Hyperlipidemia, unspecified; M19.90 Unspecified osteoarthritis, unspecified site; J45.909 Unspecified asthma, uncomplicated; I25.2 Old myocardial infarction; Z85.42 Personal history of malignant neoplasm of other parts of uterus; Z86.010 Personal history of colon polyps; Z98.84 Bariatric surgery status; Z90.89 Acquired absence of other organs; Z90.710 Acquired absence of both cervix and uterus; Z90.49 Acquired absence of other specified parts of digestive tract; Z96.653 Presence of artificial knee joint, bilateral; Z82.49 Family history of ischemic heart disease and other diseases of the circulatory system; Z83.3 Family history of diabetes mellitus; Z87.891 Personal history of nicotine dependence; Z98.51 Tubal ligation status; Z79.899 Other long term (current) drug therapy
CPT/HCPCS: 88305; 45380; 45385; 43235; J2704

== ENCOUNTER 2022-02-18 13:35 | Emergency (ER) | payer MEDICARE, BC ==
[2022-02-18] MEDS ORDERED: HYDROmorphone 1 MG/ML 1 ML SYRINGE IVP STA ×2 (13:52→15:52)
--- NOTE | 2022-02-18 13:54 | ED ---
General Adult HPI - General Chief complaint: Back Pain/Injury Stated complaint: back pain Time Seen by Provider: 02/18/22 13:38 Source: patient, EMS, RN notes reviewed Mode of arrival: EMS Limitations: no limitations - History of Present Illness Initial comments: Patient is a pleasant 76-year-old female presenting to the emergency department with concerns with back pain. Onset of symptoms was prior to arrival. Patient was grabbing her walker out of the car. Patient turned with sudden discomfort of thoracic back pain. Patient states discomfort increases greatly with movement. Patient has chronic lower back pain however no history of thoracic back pain. No direct trauma. Patient states it hurts to take a deep breath however no dyspnea. No chest pain. No abdominal pain. No weakness. No incontinence or retention of bowel or bladder - Related Data Home Medications Medication Instructions Recorded Confirmed Furosemide [Lasix] 40 mg PO DAILY 03/18/19 02/18/22 Levothyroxine Sodium [Synthroid] 112 mcg PO AC-BRKFST 03/18/19 02/18/22 Rosuvastatin Calcium [Crestor] 10 mg PO HS 03/18/19 02/18/22 Calcium Acetate 667 mg PO ACHS 12/22/19 02/18/22 Metoprolol Tartrate [Lopressor] 50 mg PO HS 12/22/19 02/18/22 amLODIPine [Norvasc] 10 mg PO HS 08/02/20 02/18/22 Ergocalciferol [Vitamin D2 (1250 1,250 mcg PO MO 10/08/20 02/18/22 Mcg = 46849 Iu)] Nephro-Karla Tab 1 tab PO HS 01/09/22 02/18/22 lisinopriL 40 mg PO DAILY 01/09/22 02/18/22 Metoprolol Tartrate [Lopressor] 25 mg PO DAILY 02/18/22 02/18/22 oxyCODONE-APAP 10-325MG [Percocet 1 tab PO TID PRN 02/18/22 02/18/22 10-325 mg] Previous Rx's Medication Instructions Recorded Cyclobenzaprine [Flexeril] 10 mg PO TID PRN #12 tablet 02/18/22 methylPREDNISolone Dose Pack 4 mg PO DIRECTED #21 tab 02/18/22 [Medrol Dose Pack] Allergies Allergy/AdvReac Type Severity Reaction Status Date / Time naproxen [From Naprosyn] Allergy Dyspnea Verified 02/18/22 15:09 blood thinner Allergy "brain Uncoded 02/18/22 15:09 bleed" Review of Systems ROS Statement: Those systems with pertinent positive or pertinent negative responses have been documented in the HPI. ROS Other: All systems not noted in ROS Statement are negative. Constitutional: Denies: fever Eyes: Denies: eye pain ENT: Denies: ear pain Respiratory: Denies: dyspnea Cardiovascular: Denies: chest pain Gastrointestinal: Denies: abdominal pain Genitourinary: Denies: dysuria Musculoskeletal: Reports: as per HPI Skin: Denies: rash Neurological: Denies: weakness Past Medical History Past Medical History: Asthma, Cancer, Diabetes Mellitus, Dialysis, Hyperlipidemia, Hypertension, Myocardial Infarction ([place]), Osteoarthritis (OA), R enal Disease, Thyroid Disorder Additional Past Medical History / Comment(s): Hx Uterine cancer 25 yrs ago, hemodialysis Mon, Wed and Sun, varicose veins., "mild heart attack"" "brain bleed twice" chronic diarrhea, hx "14 polyps", "chronic back pain", anemia, currentl edema kashif feet, diet control diabetic Last Myocardial Infarction Date:: unknown History of Any Multi-Drug Resistant Organisms: None Reported Past Surgical History: Appendectomy, Bariatric Surgery, Cholecystectomy, Hysterectomy, Joint Replacement, Tonsillectomy Additional Past Surgical History / Comment(s): gastric bypass, surgery after fall -fx rt leg and foot, kashif knee replacement, kashif cataracts, surgery x 2 or "brain bleed", fistula for dialysis Past Anesthesia/Blood Transfusion Reactions: Family History of Problems w/ Anesthesia Additional Past Anesthesia/Blood Transfusion Reaction / Comment(s): MOTHER PONV Smoking Status: Former smoker - Past Family History Mother Family Medical History: Cancer Father Family Medical History: Diabetes Mellitus, Hypertension Sister(s) Family Medical History: Cancer General Exam Limitations: no limitations General appearance: alert, in no apparent distress Head exam: Present: normocephalic Eye exam: Present: normal appearance Neck exam: Present: normal inspection. Absent: tenderness Respiratory exam: Present: normal lung sounds bilaterally Cardiovascular Exam: Present: regular rate, normal rhythm Expanded Peripheral pulses: 2+: Posterior Tibialis (R), Posterior Tibialis (L) GI/Abdominal exam: Present: soft. Absent: distended, tenderness, pulsatile mass Extremities exam: Present: normal inspection, full ROM. Absent: tenderness Back exam: Present: tenderness (T5 to T7 region as well as lateral to this) Neurological exam: Present: alert. Absent: motor sensory deficit Expanded Sensory exam: Lower Extremity Light Touch: Normal Motor strength exam: RUE: 5, LUE: 5, RLE: 5, LLE: 5 Psychiatric exam: Present: normal affect, normal mood Skin exam: Present: normal color Course Vital Signs 02/18/22 13:37 Temperature 97.7 F Pulse Rate 65 Respiratory 20 Rate Blood Pressure 141/62 O2 Sat by Pulse 97 Oximetry Medical Decision Making - Medical Decision Making Was pt. sent in by a medical professional or institution (, PA, MICROBIOLOGY INSTRUCTOR, urgent care, hospital, or senior care...) When possible be specific @ -No Did you speak to anyone other than the patient for history (EMS, parent, family, police, friend...)? What history was obtained from this source @ -No Did you review nursing and triage notes (agree or disagree)? Why? @ -I reviewed and agree with nursing and triage notes Were old charts reviewed (outside hosp., previous admission, EMS record, old EKG, old radiological studies, urgent care reports/EKG's, senior care records)? Report findings @ -No old charts were reviewed Differential Diagnosis (chest pain, altered mental status, abdominal pain women, abdominal pain men, vaginal bleeding, weakness, fever, dyspnea, syncope, headach e, dizziness, GI bleed, back pain, seizure, CVA, palpatations, mental health)? @ -Differential Back Pain: Strain, zoster, cauda equina syndrome, epidural abscess, vertebral osteom yelitis, discitis, fracture, subluxation, disc herniation, DJD, spinal stenosis, dissection, AAA, pancreatitis, peptic ulcer disease, pyelonephritis, kidney stone, this is not meant to be an all-inclusive list. EKG interpreted by me (3pts min.). @ -As above X-rays interpreted by me (1pt min.). @ -As above CT interpreted by me (1pt min.). @ -None done U/S interpreted by me (1pt. min.). @ -None done What testing was considered but not performed or refused? (CT, X-rays, U/S, labs)? Why? @ -None What meds were considered but not given or refused? Why? @ -None Did you discuss the management of the patient with other professionals (professionals i.e. , PA, MICROBIOLOGY INSTRUCTOR, lab, RT, psych nurse, social sciences department chair, corporate sales manager, teacher, chief business officer, continuous pillowcase cutter)? Give summary @ -No Was smoking cessation discussed for >3mins.? @ -No Was critical care preformed (if so, how long)? @ -No Were there social determinants of health that impacted care today? How? (Homelessness, low income, unemployed, alcoholism, drug addiction, transportation, low edu. Level, literacy, decrease access to med. care, retirement, rehab)? @ -No Was there de-escalation of care discussed even if they declined (Discuss DNR or withdrawal of care, Hospice)? DNR status @ -No What co-morbidities impacted this encounter? (DM, HTN, Smoking, COPD, CAD, Cancer, CVA, ARF, Chemo, Hep., AIDS, mental health diagnosis, sleep apnea, morbid obesity)? @ -None Was patient admitted / discharged? Hospital course, mention meds given and route, prescriptions, significant lab abnormalities, going to OR and other pertinent info. @ -Patient will be discharged. Patient was reevaluated and improved. Patient is receptive to more medication prior to discharge. A doll with a prescription for medicine at home as well. Patient will have somebody pick her up. Undiagnosed new problem with uncertain prognosis? @ -No Drug Therapy requiring intensive monitoring for toxicity (Heparin, Nitro, Insulin, Cardizem)? @ -No Were any procedures done? @ -No Diagnosis/symptom? @ -Thoracic back pain Acute, or Chronic, or Acute on Chronic? @ -Acute Uncomplicated (without systemic symptoms) or Complicated (systemic symptoms)? @ -Uncomplicated Side effects of treatment? @ -No Exacerbation, Progression, or Severe Exacerbation? @ -No Poses a threat to life or bodily function? How? (Chest pain, [place], [place], pneumonia, PE, COPD, DKA, ARF, appy, cholecystitis, CVA, Diverticulitis, Homicidal, Suicidal, threat to staff... and all critical care pts) @ -No - Radiology Data Interpreted by me: Bilateral ribs and chest x-ray show some increased interstitial marking. No fracture. Thoracic spine shows no evidence of fracture. There is concern for possible foreign body Disposition Clinical Impression: Thoracic back pain Disposition: HOME SELF-CARE Condition: Stable Instructions (If sedation given, give patient instructions): Thoracic Back Strain (ED) Additional Instructions: Prescriptions have been sent to pharmacy. Please do follow-up with primary care physician in the next day or 2 for recheck. Return for weakness, unable to take care of self, loss of control of bowel or bladder, worsening symptoms or other concerns. Prescriptions: Cyclobenzaprine [Flexeril] 10 mg PO TID PRN #12 tablet PRN Reason: Pain methylPREDNISolone Dose Pack [Medrol Dose Pack] 4 mg PO DIRECTED #21 tab Is patient prescribed a controlled substance at d/c from ED?: No Referrals: Gautam Rizvi DO [Primary Care Provider] - 1-2 days Time of Disposition: 15:56
--- NOTE | 2022-02-18 14:37 | XR ---
EXAMINATION TYPE: XR ribs bilat w pa chest xray DATE OF EXAM: 02/18/2022 COMPARISON: 10/08/2020 HISTORY: Chest pain TECHNIQUE: 9 views FINDINGS: There is 13 x 3 cm geometric density over the left midlung field and is outside of the ches t and could be artifact or chest wall foreign body. The heart size is normal. There are some intersti tial infiltrates and subsegmental atelectasis in the mid and lower lung marlow. No rib fractures seen . No pneumothorax. IMPRESSION: There are interstitial infiltrates and atelectasis in the lung marlow which are new meliton red to old exam. Artifact or foreign body on the left posterior chest. No rib fracture.
--- NOTE | 2022-02-18 14:39 | XR ---
EXAMINATION TYPE: XR thoracic spine complete DATE OF EXAM: 02/18/2022 COMPARISON: NONE HISTORY: Back pain TECHNIQUE: 3 views FINDINGS: The thoracic vertebra have normal alignment. Posterior elements are intact. There is no par aspinal mass. There is some spurring in the mid and lower thoracic spine. IMPRESSION: Spondylotic changes in the thoracic spine. No fracture. Foreign body seen over the left p osterior chest wall.
[2022-02-18] MEDS ORDERED: ACET/COD 300 MG/30 MG STARTER PACK 6 TAB BTL PO STA (15:54)
[2022-02-18 16:19] VITALS: BP 150/71; PULSE 70; RESP 18; TEMP 98.8
== END 2022-02-18 16:19 | disposition home or self-care (01) ==
LOC: EC 13:35
DX: M54.6 Pain in thoracic spine (principal); I10 Essential (primary) hypertension; J45.909 Unspecified asthma, uncomplicated; I25.2 Old myocardial infarction; E78.5 Hyperlipidemia, unspecified; Z88.6 Allergy status to analgesic agent; Z88.8 Allergy status to other drugs, medicaments and biological substances; Z79.899 Other long term (current) drug therapy; Z87.891 Personal history of nicotine dependence; X50.9XXA Other and unspecified overexertion or strenuous movements or postures, initial encounter
CPT/HCPCS: 99284 ×2; 96374 ×2; 96376 ×2; 71111; 72072; J1170

== ENCOUNTER 2022-07-24 08:25 | Observation (INO) | payer MEDICARE, BC ==
--- NOTE | 2022-07-24 09:11 | XR ---
EXAMINATION TYPE: XR chest 2V DATE OF EXAM: 07/24/2022 COMPARISON: 06/15/22 HISTORY: Shortness of breath TECHNIQUE: Frontal and lateral views of the chest are obtained. FINDINGS: Scattered senescent parenchymal changes noted. Hyperinflation compatible with COPD. No evidence for infiltrate. No evidence for atelectasis. Heart size is stable. Mediastinal structures are stable and grossly unremarkable. No evidence for hilar prominence. Degenerative changes dorsal spine. IMPRESSION: 1. No evidence for acute pulmonary disease.
[2022-07-24] MEDS ORDERED: IPRATROPIUM-ALBUTEROL 3 ML NEB INHALATION STA ×2 (09:18→12:07)
--- NOTE | 2022-07-24 09:32 | ED ---
SOB HPI - General Chief Complaint: Shortness of Breath Stated Complaint: SOB Time Seen by Provider: 07/24/22 08:50 Source: patient, RN notes reviewed Mode of arrival: ambulatory Limitations: no limitations - History of Present Illness Initial Comments: This is a 76-year-old female who presents to the emergency department for shortness of breath. Patient states that this has been ongoing for the last couple of weeks. Coughing is much worse when trying to lay flat. States that she has also been having problems with ongoing drainage from her nose and mouth causing repetitive episodes of coughing. Coughing is leading to chest pain. Her breathing treatments have not been very effective in managing this shortness of breath. Additionally, patient does have ESRD and is on dialysis M, W, and F, and she missed her dialysis session today. Denies any fevers, chills, sore throat, palpitations, abdominal pain, nausea, vomiting, diarrhea, back pain, or headaches. MD Complaint: shortness of breath, cough - Related Data Home Medications Medication Instructions Recorded Confirmed Furosemide [Lasix] 40 mg PO DAILY 03/18/19 07/24/22 Levothyroxine Sodium [Synthroid] 112 mcg PO AC-BRKFST 03/18/19 07/24/22 Rosuvastatin Calcium [Crestor] 10 mg PO HS 03/18/19 07/24/22 Calcium Acetate 1,334 mg PO AC-TID 12/22/19 07/24/22 Metoprolol Tartrate [Lopressor] 25 mg PO BID 12/22/19 07/24/22 amLODIPine [Norvasc] 10 mg PO DAILY 08/02/20 07/24/22 Ergocalciferol [Vitamin D2 (1250 1,250 mcg PO MO 10/08/20 07/24/22 Mcg = 13089 Iu)] Nephro-Karla Tab 1 tab PO HS 01/09/22 07/24/22 lisinopriL 40 mg PO DAILY 01/09/22 07/24/22 oxyCODONE-APAP 10-325MG [Percocet 1 tab PO TID PRN 02/18/22 07/24/22 10-325 mg] Albuterol Inhaler [Ventolin Hfa 2 puff INHALATION RT-QID PRN 06/15/22 07/24/22 Inhaler] Albuterol Nebulized [Ventolin 2.5 mg INHALATION RT-QID PRN 06/15/22 07/24/22 Nebulized] Docusate [Colace] 100 mg PO Q4H PRN 06/15/22 07/24/22 Lidocaine-Prilocaine Cream [Emla 1 applic TOPICAL DAILY PRN 06/15/22 07/24/22 Cream 2.5%/2.5%] hydrALAZINE HCL [Apresoline] 25 mg PO HS 07/24/22 07/24/22 Allergies Allergy/AdvReac Type Severity Reaction Status Date / Time naproxen [From Naprosyn] Allergy Dyspnea Verified 07/24/22 11:33 blood thinner Allergy "brain Uncoded 07/24/22 11:33 bleed" Review of Systems ROS Statement: Those systems with pertinent positive or pertinent negative responses have been documented in the HPI. ROS Other: All systems not noted in ROS Statement are negative. Past Medical History Past Medical History: Asthma, Cancer, Diabetes Mellitus, Dialysis, Hyperlipidem ia, Hypertension, Myocardial Infarction ([place]), Osteoarthritis (OA), Pneumonia, Renal Disease, Thyroid Disorder Additional Past Medical History / Comment(s): Hx Uterine cancer 25 yrs ago, hemodialysis Mon, Sun and Sun, varicose veins., "mild heart attack"" "brain bleed twice" chronic diarrhea, hx "14 polyps", "chronic back pain", anemia, currentl edema kashif feet, diet control diabetic Last Myocardial Infarction Date:: unknown History of Any Multi-Drug Resistant Organisms: None Reported Past Surgical History: Appendectomy, Bariatric Surgery, Cholecystectomy, Hysterectomy, Joint Replacement, Tonsillectomy Additional Past Surgical History / Comment(s): gastric bypass, surgery after fall -fx rt leg and foot, kashif knee replacement, kashif cataracts, surgery x 2 or "brain bleed", fistula for dialysis Past Anesthesia/Blood Transfusion Reactions: Family History of Problems w/ Anesthesia Additional Past Anesthesia/Blood Transfusion Reaction / Comment(s): MOTHER PONV Past Psychological History: No Psychological Hx Reported Smoking Status: Former smoker Past Alcohol Use History: None Reported Past Drug Use History: None Reported - Past Family History Mother Family Medical History: Cancer Father Family Medical History: Diabetes Mellitus, Hypertension Sister(s) Family Medical History: Cancer General Exam Limitations: no limitations General appearance: alert, in no apparent distress Head exam: Present: atraumatic, normocephalic, normal inspection Respiratory exam: Present: wheezes, rales, accessory muscle use, decreased breath sounds, prolonged expiratory Cardiovascular Exam: Present: regular rate, normal rhythm, normal heart sounds. Absent: systolic murmur, diastolic murmur, rubs, gallop, clicks Neurological exam: Present: alert, oriented X3, CN II-XII intact Psychiatric exam: Present: normal affect, normal mood Skin exam: Present: warm, dry, intact, normal color. Absent: rash Course Vital Signs 07/24/22 07/24/22 07/24/22 08:28 08:30 09:35 Temperature 98.5 F Pulse Rate 70 73 Respiratory 24 20 Rate Blood Pressure 139/69 O2 Sat by Pulse 99 Oximetry 07/24/22 07/24/22 07/24/22 09:46 12:42 13:32 Temperature Pulse Rate 75 72 76 Respiratory 18 Rate Blood Pressure 123/58 O2 Sat by Pulse 98 Oximetry 07/24/22 13:42 Temperature Pulse Rate 76 Respiratory Rate Blood Pressure O2 Sat by Pulse Oximetry Medical Decision Making - Medical Decision Making This is a 76-year-old female who presents to the emergency department for shortness of breath. Was pt. sent in by a medical professional or institution? @ -No Did you speak to anyone other than the patient for history? @ -No Did you review nursing and triage notes? @ -Yes, and I agree, it is accurate with regards to the patient's symptoms. Were old charts reviewed? @ -No Differential Diagnosis? @ -Differential Dyspnea: Coronary syndrome, arrhythmia, tamponade, asthma, COPD, pulmonary embolism, pneumonia, pneumothorax, pulmonary effusion, anaphylaxis, diabetic ketoacidosis, flailed chest, pulmonary contusion, diaphragmatic rupture, anemia, neuromuscular, this is not meant to be an all-inclusive list. EKG interpreted by me (3pts min.)? @ -EKG interpreted by me demonstrating the following: Sinus rhythm. Ventricular rate 72 beats per minute, AR interval 169 ms, QRS duration 93 ms, QTC 411 ms. X-rays interpreted by me (1pt min.)? @ -Chest x-ray obtained, my interpretation identifies no localized consolidations or infiltrates. CT interpreted by me (1pt min.)? @ -Not obtained U/S interpreted by me (1pt. min.)? @ -Not obtained What testing was considered but not performed? (CT, X-rays, U/S, labs)? Why? @ -None What meds were considered but not given? Why? @ -None Did you discuss the management of the patient with other professionals? @ -Yes, Dr. Panchal, who accepts the patient for admission. Did you reconcile home meds? @ -Yes Was smoking cessation discussed for >3mins.? @ -No Was critical care preformed (if so, how long)? @ -No Were there social determinants of health that impacted care today? How? (Homelessness, low income, unemployed, alcoholism, drug addiction, transportation, low edu. Level, literacy, decrease access to med. care, intermediate, rehab)? @ -No Was there de-escalation of care discussed even if they declined? (Discuss DNR or withdrawal of care, Hospice)? @ -No What co-morbidities impacted this encounter? (DM, HTN, Smoking, COPD, CAD, Cancer, CVA, Hep., AIDS, mental health diagnosis, sleep apnea, morbid obesity)? @ -CHF, COPD, DM, HLD, HTN, ESRD Was patient admitted / discharged? @ -Admitted. Lab work obtained revealing poor renal function. While this is worse than last month, it is consistent with the patient's end-stage renal disease. BNP is 3400. However, this is improved from last month when it was 7950. Chest x-ray reveals no acute process. Patient was given 2 DuoNeb breathing treatments in the emergency department with no improvement in symptoms. She also has very poor lung sounds on auscultation with accessory muscle use. Patient is scared of going home due to her symptoms. She also missed her dialysis appointment today. Patient admitted to medicine for COPD exacerbation. Nephrology consulted for end-stage renal disease and hemodialysis management. Undiagnosed new problem with uncertain prognosis? @ -None Drug Therapy requiring intensive monitoring for toxicity (Heparin, Nitro, Ins ulin, Cardizem)? @ -None Were any procedures done? @ -None Diagnosis/symptom? @ -COPD exacerbation Acute, or Chronic, or Acute on Chronic? @ -Acute on chronic Uncomplicated (without systemic symptoms) or Complicated (systemic symptoms)? @ -Complicated Side effects of treatment? @ -None Exacerbation, Progression, or Severe Exacerbation] @ -Severe exacerbation Poses a threat to life or bodily function? @ -Yes This case was discussed in detail with the attending ED physician, Dr. Darby Presentation, findings, and treatment plan discussed in detail as well. - Lab Data Result diagrams: 07/24/22 09:17 07/24/22 09:17 Lab Results 07/24/22 07/24/22 07/24/22 Range/Units 09:17 09:17 09:17 WBC 5.7 (3.8-10.6) k/uL RBC 3.30 L (3.80-5.40) m/uL Hgb 10.6 L (11.4-16.0) gm/dL Hct 32.1 L (34.0-46.0) % MCV 97.3 (80.0-100.0) fL MCH 32.1 (25.0-35.0) pg MCHC 33.0 (31.0-37.0) g/dL RDW 13.5 (11.5-15.5) % Plt Count 186 (150-450) k/uL MPV 8.3 Neutrophils % 72 % Lymphocytes % 15 % Monocytes % 6 % Eosinophils % 4 % Basophils % 0 % Neutrophils # 4.1 (1.3-7.7) k/uL Lymphocytes # 0.9 L (1.0-4.8) k/uL Monocytes # 0.4 (0-1.0) k/uL Eosinophils # 0.2 (0-0.7) k/uL Basophils # 0.0 (0-0.2) k/uL PT 9.9 (9.0-12.0) sec INR 0.9 (<1.2) APTT 21.5 L (22.0-30.0) sec Sodium 133 L (137-145) mmol/L Potassium 4.3 (3.5-5.1) mmol/L Chloride 105 (98-107) mmol/L Carbon Dioxide 16 L (22-30) mmol/L Anion Gap 12 mmol/L BUN 42 H (7-17) mg/dL Creatinine 5.47 H (0.52-1.04) mg/dL Est GFR (CKD-EPI)AfAm 8 (>60 ml/min/1.73 sqM) Est GFR (CKD-EPI)NonAf 7 (>60 ml/min/1.73 sqM) Glucose 116 H (74-99) mg/dL Plasma Lactic Acid Tulio (0.7-2.0) mmol/L Calcium 8.6 (8.4-10.2) mg/dL Total Bilirubin 0.7 (0.2-1.3) mg/dL AST 38 H (14-36) U/L ALT 22 (4-34) U/L Alkaline Phosphatase 136 H (38-126) U/L Troponin I (0.000-0.034) ng/mL NT-Pro-B Natriuret Pep pg/mL Total Protein 6.5 (6.3-8.2) g/dL Albumin 3.5 (3.5-5.0) g/dL Influenza Type A (PCR) (Not Detectd) Influenza Type B (PCR) (Not Detectd) RSV (PCR) (Not Detectd) SARS-CoV-2 (PCR) (Not Detectd) 07/24/22 07/24/22 07/24/22 Range/Units 09:17 09:17 09:17 WBC (3.8-10.6) k/uL RBC (3.80-5.40) m/uL Hgb (11.4-16.0) gm/dL Hct (34.0-46.0) % MCV (80.0-100.0) fL MCH (25.0-35.0) pg MCHC (31.0-37.0) g/dL RDW (11.5-15.5) % Plt Count (150-450) k/uL MPV Neutrophils % % Lymphocytes % % Monocytes % % Eosinophils % % Basophils % % Neutrophils # (1.3-7.7) k/uL Lymphocytes # (1.0-4.8) k/uL Monocytes # (0-1.0) k/uL Eosinophils # (0-0.7) k/uL Basophils # (0-0.2) k/uL PT (9.0-12.0) sec INR (<1.2) APTT (22.0-30.0) sec Sodium (137-145) mmol/L Potassium (3.5-5.1) mmol/L Chloride (98-107) mmol/L Carbon Dioxide (22-30) mmol/L Anion Gap mmol/L BUN (7-17) mg/dL Creatinine (0.52-1.04) mg/dL Est GFR (CKD-EPI)AfAm (>60 ml/min/1.73 sqM) Est GFR (CKD-EPI)NonAf (>60 ml/min/1.73 sqM) Glucose (74-99) mg/dL Plasma Lactic Acid Tulio 1.5 (0.7-2.0) mmol/L Calcium (8.4-10.2) mg/dL Total Bilirubin (0.2-1.3) mg/dL AST (14-36) U/L ALT (4-34) U/L Alkaline Phosphatase (38-126) U/L Troponin I <0.012 (0.000-0.034) ng/mL NT-Pro-B Natriuret Pep 3400 pg/mL Total Protein (6.3-8.2) g/dL Albumin (3.5-5.0) g/dL Influenza Type A (PCR) (Not Detectd) Influenza Type B (PCR) (Not Detectd) RSV (PCR) (Not Detectd) SARS-CoV-2 (PCR) (Not Detectd) 07/24/22 Range/Units 09:17 WBC (3.8-10.6) k/uL RBC (3.80-5.40) m/uL Hgb (11.4-16.0) gm/dL Hct (34.0-46.0) % MCV (80.0-100.0) fL MCH (25.0-35.0) pg MCHC (31.0-37.0) g/dL RDW (11.5-15.5) % Plt Count (150-450) k/uL MPV Neutrophils % % Lymphocytes % % Monocytes % % Eosinophils % % Basophils % % Neutrophils # (1.3-7.7) k/uL Lymphocytes # (1.0-4.8) k/uL Monocytes # (0-1.0) k/uL Eosinophils # (0-0.7) k/uL Basophils # (0-0.2) k/uL PT (9.0-12.0) sec INR (<1.2) APTT (22.0-30.0) sec Sodium (137-145) mmol/L Potassium (3.5-5.1) mmol/L Chloride (98-107) mmol/L Carbon Dioxide (22-30) mmol/L Anion Gap mmol/L BUN (7-17) mg/dL Creatinine (0.52-1.04) mg/dL Est GFR (CKD-EPI)AfAm (>60 ml/min/1.73 sqM) Est GFR (CKD-EPI)NonAf (>60 ml/min/1.73 sqM) Glucose (74-99) mg/dL Plasma Lactic Acid Tulio (0.7-2.0) mmol/L Calcium (8.4-10.2) mg/dL Total Bilirubin (0.2-1.3) mg/dL AST (14-36) U/L ALT (4-34) U/L Alkaline Phosphatase (38-126) U/L Troponin I (0.000-0.034) ng/mL NT-Pro-B Natriuret Pep pg/mL Total Protein (6.3-8.2) g/dL Albumin (3.5-5.0) g/dL Influenza Type A (PCR) Not Detected (Not Detectd) Influenza Type B (PCR) Not Detected (Not Detectd) RSV (PCR) Not Detected (Not Detectd) SARS-CoV-2 (PCR) Not Detected (Not Detectd) - Radiology Data Radiology results: report reviewed, image reviewed Disposition Clinical Impression: COPD exacerbation Disposition: ADMITTED IP TO THIS HOSP
[2022-07-24 09:36] LABS: Basophils % (A) 0 %; Eosinophils # (A) 0.2 k/uL (0-0.7); Eosinophils % (A) 4 %; HCT 32.1 % (34.0-46.0); HGB 10.6 gm/dL (11.4-16.0); Lymphocytes # (A) 0.9 k/uL (1.0-4.8); Lymphocytes % (A) 15 %; MCH 32.1 pg (25.0-35.0); MCV 97.3 fL (80.0-100.0); Mean Platelet Volume 8.3; Monocytes # (A) 0.4 k/uL (0-1.0); Monocytes % (A) 6 %; Neutrophils # (A) 4.1 k/uL (1.3-7.7); Neutrophils % (A) 72 %; Platelet Count 186 k/uL (150-450); RDW 13.5 % (11.5-15.5); WBC 5.7 k/uL (3.8-10.6)
[2022-07-24 09:45] LABS: INR 0.9 (<1.2); Prothrombin Time 9.9 sec (9.0-12.0)
[2022-07-24 09:53] LABS: ALT 22 U/L (4-34); African American GFR (CKD) 8 (>60 ml/min/1.73 sqM); Albumin 3.5 g/dL (3.5-5.0); Anion Gap 12 mmol/L; Blood Urea Nitrogen 42 mg/dL (7-17); Calcium 8.6 mg/dL (8.4-10.2); Carbon Dioxide 16 mmol/L (22-30); Chloride 105 mmol/L (98-107); Glucose 116 mg/dL (74-99); Non-African American GFR(CKD) 7 (>60 ml/min/1.73 sqM); Sodium 133 mmol/L (137-145); Total Bilirubin 0.7 mg/dL (0.2-1.3); Total Protein 6.5 g/dL (6.3-8.2)
[2022-07-24 10:01] LABS: AST 38 U/L (14-36); Alkaline Phosphatase 136 U/L (38-126); Potassium 4.3 mmol/L (3.5-5.1)
[2022-07-24 10:02] LABS: Partial Thromboplastin Time 21.5 sec (22.0-30.0)
[2022-07-24] MEDS ORDERED: oxyCODONE-APAP 10-325MG 1 EACH TAB PO ONE (11:39)
[2022-07-24] MEDS ORDERED: NALOXONE 0.4 MG/ML 1 ML VIAL IV PRN (12:31)
[2022-07-24] MEDS ORDERED: ACETAMINOPHEN TAB 325 MG TAB PO PRN (12:31)
[2022-07-24] MEDS ORDERED: ONDANSETRON 4 MG/2 ML VIAL IVP PRN (12:31)
[2022-07-24] MEDS ORDERED: DOCUSATE 100 MG CAP PO PRN (12:32)
[2022-07-24] MEDS ORDERED: guaiFENesin-DM 600/30MG 1 EACH TAB.ER.12H PO ONE (15:22)
[2022-07-24] MEDS: CALCIUM ACETATE 667 MG TAB PO SCH (16:16)
[2022-07-24] MEDS: oxyCODONE-APAP 10-325MG 1 EACH TAB PO PRN ×2 (19:55→23:44)
[2022-07-24] MEDS: ATORVASTATIN 20 MG TAB PO SCH (19:56)
[2022-07-24] MEDS: METOPROLOL TARTRATE 25 MG TAB PO SCH (19:56)
[2022-07-24] MEDS: FOLIC ACID-VIT B COMPLEX-VIT C 1 CAP PO SCH (19:57)
[2022-07-24] MEDS ORDERED: hydrALAZINE HCL 25 MG TAB PO SCH (21:00)
[2022-07-24] MEDS ORDERED: LORazepam 0.5 MG TAB PO PRN (21:05)
[2022-07-24] MEDS ORDERED: MELATONIN 3 MG TABLET PO PRN (21:05)
[2022-07-24] MEDS ORDERED: LACTULOSE 20 GM/30 ML CUP PO PRN (21:05)
[2022-07-24] MEDS ORDERED: CALCIUM CARBONATE 500 MG CHEWABLE PO PRN (21:05)
--- NOTE | 2022-07-24 21:10 | P.HPIM ---
History of Present Illness H&P Date: 07/24/22 Chief Complaint: Short of breath History of presenting complaint: This is a pleasant [address] Rizvi. Chronic stable medical conditions include hypertension, hyperlipidemia, depression, anxiety, osteoarthritis. End-stage kidney disease on hemodialysis. Patient presents to the ER with worsening short of breath. Cough. Some nasal drainage. Relevant to current of which is not known. No obvious fever and chills. Appetite is fair. Some edema. Did not get hemodialysis today. No chest pain. Review of systems: GEN.: Tired EYES: None HEENT: None NECK: None RESPIRATORY: As above CARDIOVASCULAR: Edema GASTROINTESTINAL: None GENITOURINARY: None MUSCULOSKELETAL: Joint pains LYMPHATICS: None HEMATOLOGICAL: None PSYCHIATRY: Anxious NEUROLOGICAL: No focal currently Past medical history to include: Hypertension, hyperlipidemia, depression, anxiety, osteoarthritis, end-stage kidney disease on hemodialysis, uterine cancer, bariatric surgery, depression, osteoarthritis Social history: Quit smoking over 30 years ago. Lives alone Physical examination: VITAL SIGNS: 98.5, 70, 24, 139/69, 99% room air GENERAL: BMI 42.5, sitting on bed, short of breath. EYES: Pupils equal. Conjunctiva normal. HEENT: External appearance of nose and ears normal, oral cavity grossly normal. NECK: JVD not raised; masses not palpable. HEART: First and second heart sounds are normal; some edema. LUNGS: Respiratory rate increased; wheezing and some crackles. ABDOMEN: Soft, nontender, liver spleen not palpable, no masses palpable. PSYCH: Alert and oriented x3; mood and affect anxiousl. MUSCULOSKELETAL:No Clubbing/cyanosis;muscles-grossly intact. OA NEUROLOGICAL: Cranial nerves grossly intact; no facial asymmetry, power and sensation grossly intact. LYMPHATICS: No lymph nodes palpable in the axilla and neck INVESTIGATIONS, reviewed in the clinical context: White count 5.7 hemoglobin 10.6 platelets 186 sodium 133 potassium 4.3 BUN 42 creatinine 5.47 Influenza type A, B, RSV, COVID-19: Not detected EKG tracing personally reviewed by me-normal sinus rhythm. Anterior leads poor R-wave progression Chest x-ray film personally reviewed by me-right diaphragm elevated. Some venous prominence Assessment and plan: -Acute COPD exacerbation in a prior smoker DuoNeb 4 times a day, nebulized Perforomist, Pulmicort. IV sodium Medrol. -Postnasal drainage. Claritin-D -Acute fluid overload from incomplete hemodialysis/pulmonary edema Hemodialysis. -Anemia of chronic kidney disease -End-stage kidney disease on hemodialysis. From diabetic nephropathy Follow with nephrology -Hyperlipidemia Crestor 10 mg daily at bedtime -Essential hypertension, Lisinopril 40 mg daily, Norvasc 10 mg daily, Lopressor 25 mg twice a day -Primary osteoarthritis Tylenol as needed -Morbid obesity BMI 2.5 Weight loss measures -DO NOT RESUSCITATE Bronchodilators, nebulized Perforomist and Pulmicort. I sodium Medrol. Resume home medications. Nephrology consulted. Past Medical History Past Medical History: Asthma, Cancer, Diabetes Mellitus, Dialysis, Hyperlipidemia, Hypertension, Myocardial Infarction ([place]), Osteoarthritis (OA), Pneumonia, Renal Disease, Thyroid Disorder Additional Past Medical History / Comment(s): Hx Uterine cancer 25 yrs ago, hemodialysis Sun, Sun and Sun, varicose veins., "mild heart attack"" "brain bleed twice" chronic diarrhea, hx "14 polyps", "chronic back pain", anemia, currentl edema kashif feet, diet control diabetic Last Myocardial Infarction Date:: unknown History of Any Multi-Drug Resistant Organisms: None Reported Past Surgical History: Appendectomy, Bariatric Surgery, Cholecystectomy, Hysterectomy, Joint Replacement, Tonsillectomy Additional Past Surgical History / Comment(s): gastric bypass, surgery after fall -fx rt leg and foot, kashif knee replacement, kashif cataracts, surgery x 2 or "brain bleed", fistula for dialysis Past Anesthesia/Blood Transfusion Reactions: Family History of Problems w/ Anesthesia Additional Past Anesthesia/Blood Transfusion Reaction / Comment(s): MOTHER PONV Past Psychological History: No Psychological Hx Reported Smoking Status: Former smoker Past Alcohol Use History: None Reported Past Drug Use History: None Reported - Past Family History Mother Family Medical History: Cancer Father Family Medical History: Diabetes Mellitus, Hypertension Sister(s) Family Medical History: Cancer Medications and Allergies Home Medications Medication Instructions Recorded Confirmed Type Furosemide [Lasix] 40 mg PO DAILY 03/18/19 07/24/22 History Levothyroxine Sodium [Synthroid] 112 mcg PO AC-BRKFST 03/18/19 07/24/22 History Rosuvastatin Calcium [Crestor] 10 mg PO HS 03/18/19 07/24/22 History Calcium Acetate 1,334 mg PO AC-TID 12/22/19 07/24/22 History Metoprolol Tartrate [Lopressor] 25 mg PO BID 12/22/19 07/24/22 History amLODIPine [Norvasc] 10 mg PO DAILY 08/02/20 07/24/22 History Ergocalciferol [Vitamin D2 (1250 1,250 mcg PO MO 10/08/20 07/24/22 History Mcg = 19017 Iu)] Nephro-Karla Tab 1 tab PO HS 01/09/22 07/24/22 History lisinopriL 40 mg PO DAILY 01/09/22 07/24/22 History oxyCODONE-APAP 10-325MG [Percocet 1 tab PO TID PRN 02/18/22 07/24/22 History 10-325 mg] Albuterol Inhaler [Ventolin Hfa 2 puff INHALATION RT-QID PRN 06/15/22 07/24/22 History Inhaler] Albuterol Nebulized [Ventolin 2.5 mg INHALATION RT-QID PRN 06/15/22 07/24/22 History Nebulized] Docusate [Colace] 100 mg PO Q4H PRN 06/15/22 07/24/22 History Lidocaine-Prilocaine Cream [Emla 1 applic TOPICAL DAILY PRN 06/15/22 07/24/22 History Cream 2.5%/2.5%] hydrALAZINE HCL [Apresoline] 25 mg PO HS 07/24/22 07/24/22 History Allergies Allergy/AdvReac Type Severity Reaction Status Date / Time naproxen [From Naprosyn] Allergy Dyspnea Verified 07/24/22 11:33 blood thinner Allergy "brain Uncoded 07/24/22 11:33 bleed" Physical Exam Vitals: Vital Signs Temp Pulse Resp BP Pulse Ox 07/24/22 19:54 103 H 18 142/75 95 07/24/22 16:00 18 07/24/22 13:42 76 07/24/22 13:32 76 07/24/22 12:42 72 18 123/58 98 07/24/22 12:00 18 07/24/22 09:46 75 07/24/22 09:35 73 07/24/22 08:30 20 07/24/22 08:28 98.5 F 70 24 139/69 99 Intake and Output 07/24/22 07/24/22 07/24/22 06:59 14:59 22:59 Other: Weight 102.058 kg Results CBC & Chem 7: 07/24/22 09:17 07/24/22 09:17 Labs: Abnormal Lab Results - Last 24 Hours (Table) 07/24/22 07/24/22 07/24/22 Range/Units 09:17 09:17 09:17 RBC 3.30 L (3.80-5.40) m/uL Hgb 10.6 L (11.4-16.0) gm/dL Hct 32.1 L (34.0-46.0) % Lymphocytes # 0.9 L (1.0-4.8) k/uL APTT 21.5 L (22.0-30.0) sec Sodium 133 L (137-145) mmol/L Carbon Dioxide 16 L (22-30) mmol/L BUN 42 H (7-17) mg/dL Creatinine 5.47 H (0.52-1.04) mg/dL Glucose 116 H (74-99) mg/dL AST 38 H (14-36) U/L Alkaline Phosphatase 136 H (38-126) U/L
[2022-07-24] MEDS: methylPREDNISolone SOD SUCCI 40 MG/ML 1 ML VIAL IV SCH ×2 (21:14→23:25)
[2022-07-24] MEDS ORDERED: ENOXAPARIN 40 MG/0.4 ML SYRINGE SQ SCH (21:15)
[2022-07-24] MEDS: DOXYCYCLINE 100 MG CAP PO SCH (21:20)
[2022-07-24] MEDS: ENOXAPARIN 30 MG/0.3 ML SYRINGE SQ SCH (21:20)
[2022-07-24] MEDS: guaiFENesin 600 MG TABLET.ER PO SCH (21:20)
[2022-07-24] MEDS: LORATADINE-PSEUDOEPH 5-120 MG 1 EACH TAB.ER.12H PO SCH (21:27)
[2022-07-24] MEDS: FORMOTEROL FUMARATE 20 MCG/2 ML NEBU INHALATION SCH (21:39)
[2022-07-24] MEDS: BUDESONIDE 1 MG/2 ML NEBU INHALATION SCH (21:40)
[2022-07-24] MEDS: IPRATROPIUM-ALBUTEROL 3 ML NEB INHALATION SCH (21:40)
[2022-07-25] MEDS: LEVOTHYROXINE 112 MCG TAB PO SCH (06:40)
[2022-07-25] MEDS: CALCIUM ACETATE 667 MG TAB PO SCH ×3 (06:40→18:44)
[2022-07-25] MEDS: IPRATROPIUM-ALBUTEROL 3 ML NEB INHALATION SCH ×4 (07:50→20:22)
[2022-07-25] MEDS: FORMOTEROL FUMARATE 20 MCG/2 ML NEBU INHALATION SCH ×2 (07:50→20:22)
[2022-07-25] MEDS: BUDESONIDE 1 MG/2 ML NEBU INHALATION SCH ×2 (07:50→20:22)
[2022-07-25] MEDS: oxyCODONE-APAP 10-325MG 1 EACH TAB PO PRN ×2 (08:16→18:02)
[2022-07-25] MEDS: amLODIPine 10 MG TAB PO SCH (08:16)
[2022-07-25] MEDS: METOPROLOL TARTRATE 25 MG TAB PO SCH ×2 (08:16→20:52)
[2022-07-25] MEDS: guaiFENesin 600 MG TABLET.ER PO SCH ×4 (08:16→20:54)
[2022-07-25] MEDS: lisinopriL 20 MG TAB PO SCH (08:16)
[2022-07-25] MEDS: DOXYCYCLINE 100 MG CAP PO SCH ×2 (08:16→20:53)
[2022-07-25] MEDS: FUROSEMIDE 40 MG TAB PO SCH (08:17)
[2022-07-25] MEDS: methylPREDNISolone SOD SUCCI 40 MG/ML 1 ML VIAL IV SCH ×3 (08:17→23:52)
--- NOTE | 2022-07-25 10:37 | P.NPCON ---
History of Present Illness - Reason for Consult end stage renal disease - History of Present Illness Reason for consultation: End-stage renal disease History of present illness: Patient is a 76-year-old female seen in renal consultation for end-stage renal disease. She is maintained on hemodialysis on Sunday schedule. Patient was seen and examined in the emergency room. Patient came to the hospital due to cough and shortness of breath. Patient states it's been going on for the last couple of weeks. She is unsure if she had any fever or not. Afebrile in the ER. No vomiting or diarrhea. Oral intake is good. Blood pressure controlled. She is on room air. Chest x-ray showed no evidence of acute pulmonary disease. Patient has history of hemorrhagic stroke. Echocardiogram from June 2022 showed preserved ejection fraction with mild mitral regurgitation, tricuspid regurgitation and pulmonary hypertension. She is currently receiving oral antibiotics. Also on IV steroids. Admits to a productive cough with brownish phlegm. Vital signs are stable. General: No acute distress. HEENT: Head exam is unremarkable. LUNGS: No audible rhonchi or wheezes. HEART: Rate and Rhythm are regular. ABDOMEN: Soft, nontender. EXTREMITITES: No edema. Past Medical History Past Medical History: Asthma, Cancer, Diabetes Mellitus, Dialysis, Hyperlip idemia, Hypertension, Myocardial Infarction ([place]), Osteoarthritis (OA), Pneumonia, Renal Disease, Thyroid Disorder Additional Past Medical History / Comment(s): Hx Uterine cancer 25 yrs ago, hemodialysis Sun, Sun and Sun, varicose veins., "mild heart attack"" "brain bleed twice" chronic diarrhea, hx "14 polyps", "chronic back pain", anemia, currentl edema kashif feet, diet control diabetic Last Myocardial Infarction Date:: unknown History of Any Multi-Drug Resistant Organisms: None Reported Past Surgical History: Appendectomy, Bariatric Surgery, Cholecystectomy, Hysterectomy, Joint Replacement, Tonsillectomy Additional Past Surgical History / Comment(s): gastric bypass, surgery after fall -fx rt leg and foot, kashif knee replacement, kashif cataracts, surgery x 2 or "brain bleed", fistula for dialysis Past Anesthesia/Blood Transfusion Reactions: Family History of Problems w/ Anesthesia Additional Past Anesthesia/Blood Transfusion Reaction / Comment(s): MOTHER PONV Past Psychological History: No Psychological Hx Reported Smoking Status: Former smoker Past Alcohol Use History: None Reported Additional Past Alcohol Use History / Comment(s): Quit smoking 30+ yrs ago. Past Drug Use History: None Reported - Past Family History Mother Family Medical History: Cancer Father Family Medical History: Diabetes Mellitus, Hypertension Sister(s) Family Medical History: Cancer Medications and Allergies Home Medications Medication Instructions Recorded Confirmed Type Furosemide [Lasix] 40 mg PO DAILY 03/18/19 07/24/22 History Levothyroxine Sodium [Synthroid] 112 mcg PO AC-BRKFST 03/18/19 07/24/22 History Rosuvastatin Calcium [Crestor] 10 mg PO HS 03/18/19 07/24/22 History Calcium Acetate 1,334 mg PO AC-TID 12/22/19 07/24/22 History Metoprolol Tartrate [Lopressor] 25 mg PO BID 12/22/19 07/24/22 History amLODIPine [Norvasc] 10 mg PO DAILY 08/02/20 07/24/22 History Ergocalciferol [Vitamin D2 (1250 1,250 mcg PO MO 10/08/20 07/24/22 History Mcg = 72825 Iu)] Nephro-Karla Tab 1 tab PO HS 01/09/22 07/24/22 History lisinopriL 40 mg PO DAILY 01/09/22 07/24/22 History oxyCODONE-APAP 10-325MG [Percocet 1 tab PO TID PRN 02/18/22 07/24/22 History 10-325 mg] Albuterol Inhaler [Ventolin Hfa 2 puff INHALATION RT-QID PRN 06/15/22 07/24/22 History Inhaler] Albuterol Nebulized [Ventolin 2.5 mg INHALATION RT-QID PRN 06/15/22 07/24/22 History Nebulized] Docusate [Colace] 100 mg PO Q4H PRN 06/15/22 07/24/22 History Lidocaine-Prilocaine Cream [Emla 1 applic TOPICAL DAILY PRN 06/15/22 07/24/22 History Cream 2.5%/2.5%] hydrALAZINE HCL [Apresoline] 25 mg PO HS 07/24/22 07/24/22 History Allergies Allergy/AdvReac Type Severity Reaction Status Date / Time naproxen [From Naprosyn] Allergy Dyspnea Verified 07/24/22 11:33 blood thinner Allergy "brain Uncoded 07/24/22 11:33 bleed" Physical Exam Vitals: Vital Signs Pulse Pulse Resp BP BP Pulse Ox 07/25/22 08:14 82 07/25/22 08:12 79 20 132/59 99 07/25/22 08:08 84 07/25/22 08:07 84 07/25/22 07:53 80 07/25/22 05:21 80 18 111/60 97 07/25/22 00:58 88 18 128/56 96 07/24/22 23:45 86 18 139/86 97 07/24/22 21:56 83 07/24/22 21:54 82 07/24/22 21:53 82 07/24/22 21:42 82 07/24/22 19:54 103 H 18 142/75 95 07/24/22 16:00 18 07/24/22 13:42 76 07/24/22 13:32 76 07/24/22 12:42 72 18 123/58 98 07/24/22 12:00 18 Intake and Output 07/24/22 07/25/22 07/25/22 22:59 06:59 14:59 Other: Weight 102.058 kg Results - Lab Results Most recent lab results Calcium 8.6 mg/dL (8.4-10.2) 07/24/22 09:17 07/24/22 09:17 07/24/22 09:17 Assessment and Plan Plan: Assessment: 1. End-stage renal disease maintained on hemodialysis on Sunday schedule. 2. Shortness of breath possibly from URI. ?COPD exac. On antibiotics and IV steroids. 3. Hypertension with chronic kidney disease. Stable. 4. History of hemorrhagic CVA. 5. 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 6. Metabolic acidosis due to CKD. Expect improvement post HD. Plan: HD today - missed yesterday's treatment. Another treatment tomorrow per her outpatient schedule. Thank your for the consultation. I will continue to follow the patient with you during her hospital stay.
[2022-07-25] MEDS: LORATADINE-PSEUDOEPH 5-120 MG 1 EACH TAB.ER.12H PO SCH ×2 (11:12→20:53)
[2022-07-25 17:51] LABS: Hepatitis B Surface AB- Quant 3.5 mIU/mL; Hepatitis B Surface Antigen Nonreactive
[2022-07-25 19:47] LABS: Glucose,Whole Blood 296 mg/dL (70-110)
[2022-07-25] MEDS ORDERED: DEXTROSE 50% SYRINGE 50 ML IVP PRN ×2 (20:14)
--- NOTE | 2022-07-25 20:28 | P.PN ---
Progress Note - Text Progress Note Date: 07/25/22 Chief Complaint: Short of breath History of presenting complaint: This is a pleasant [address] Rizvi. Chronic stable medical conditions include hypertension, hyperlipidemia, depression, anxiety, osteoarthritis. End-stage kidney disease on hemodialysis. Patient presents to the ER with worsening short of breath. Cough. Some nasal drainage. Relevant to current of which is not known. No obvious fever and chills. Appetite is fair. Some edema. Did not get hemodialysis today. No chest pain. Admitted with acute COPD exacerbation, acute bronchitis, acute fluid overload. Bronchodilators. Doxycycline. Hemodialysis. July 25: Breathing a bit better. Dose also wheezing. Getting bronchodilators. Doxycycline. Eating better. Does not like hospital food. Past medical history to include: Hypertension, hyperlipidemia, depression, anxiety, osteoarthritis, end-stage kidney disease on hemodialysis, uterine cancer, bariatric surgery, depression, osteoarthritis Social history: Quit smoking over 30 years ago. Lives alone Physical examination: VITAL SIGNS: 97.6, 83, 16, 103/54, 94% room air GENERAL: BMI 42.5, declining, breathing better EYES: Pupils equal. Conjunctiva normal. HEENT: External appearance of nose and ears normal, oral cavity grossly normal. NECK: JVD not raised; masses not palpable. HEART: First and second heart sounds are normal; some edema. LUNGS: Respiratory rate increased; wheezing and some crackles. ABDOMEN: Soft, nontender, liver spleen not palpable, no masses palpable. PSYCH: Alert and oriented x3; mood and affect anxiousl. MUSCULOSKELETAL:No Clubbing/cyanosis;muscles-grossly intact. OA INVESTIGATIONS, reviewed in the clinical context: White count 5.7 hemoglobin 10.6 platelets 186 sodium 133 potassium 4.3 BUN 42 creatinine 5.47 Influenza type A, B, RSV, COVID-19: Not detected EKG tracing personally reviewed by me-normal sinus rhythm. Anterior leads poor R-wave progression Chest x-ray film personally reviewed by me-right diaphragm elevated. Some venous prominence Assessment and plan: -Acute COPD exacerbation in a prior smoker: Slow to respond DuoNeb 4 times a day, nebulized Perforomist, Pulmicort. IV l.42(28 -Postnasal drainage. Claritin-D -Acute bronchitis Doxycycline -Acute fluid overload from incomplete hemodialysis/pulmonary edema Hemodialysis. -Anemia of chronic kidney disease -End-stage kidney disease on hemodialysis. From diabetic nephropathy Follow with nephrology -Hyperlipidemia Crestor 10 mg daily at bedtime -Essential hypertension, Lisinopril 40 mg daily, Norvasc 10 mg daily, Lopressor 25 mg twice a day -Primary osteoarthritis Tylenol as needed -Morbid obesity BMI 2.5 Weight loss measures -DO NOT RESUSCITATE I do current medications. Doxycycline. Follow with nephrology.
[2022-07-25] MEDS: ATORVASTATIN 20 MG TAB PO SCH (20:52)
[2022-07-25] MEDS: INSULIN DETEMIR (LEVEMIR) 100 UNIT/ML SYR SQ SCH (20:52)
[2022-07-25] MEDS: INSULIN ASPART (NovoLOG) 100 UNIT/ML VIAL SQ SCH (20:52)
[2022-07-25] MEDS: ENOXAPARIN 30 MG/0.3 ML SYRINGE SQ SCH (20:53)
[2022-07-25] MEDS: FOLIC ACID-VIT B COMPLEX-VIT C 1 CAP PO SCH (20:53)
[2022-07-26] MEDS: oxyCODONE-APAP 10-325MG 1 EACH TAB PO PRN ×3 (03:50→20:41)
[2022-07-26 03:55] LABS: Glucose,Whole Blood 248 mg/dL (70-110)
[2022-07-26 06:07] LABS: Glucose,Whole Blood 269 mg/dL (70-110)
[2022-07-26] MEDS: INSULIN ASPART (NovoLOG) 100 UNIT/ML VIAL SQ SCH ×4 (06:31→20:36)
[2022-07-26] MEDS: LEVOTHYROXINE 112 MCG TAB PO SCH (06:31)
[2022-07-26] MEDS: CALCIUM ACETATE 667 MG TAB PO SCH ×3 (06:31→18:34)
[2022-07-26] MEDS: methylPREDNISolone SOD SUCCI 40 MG/ML 1 ML VIAL IV SCH ×2 (07:48→16:55)
[2022-07-26] MEDS: guaiFENesin 600 MG TABLET.ER PO SCH ×4 (07:49→20:36)
[2022-07-26] MEDS: DOXYCYCLINE 100 MG CAP PO SCH ×2 (07:50→20:36)
[2022-07-26] MEDS: LORATADINE-PSEUDOEPH 5-120 MG 1 EACH TAB.ER.12H PO SCH ×2 (07:50→20:36)
[2022-07-26] MEDS: FORMOTEROL FUMARATE 20 MCG/2 ML NEBU INHALATION SCH ×3 (08:53→20:41)
[2022-07-26] MEDS: IPRATROPIUM-ALBUTEROL 3 ML NEB INHALATION SCH ×4 (08:53→20:41)
[2022-07-26] MEDS: BUDESONIDE 1 MG/2 ML NEBU INHALATION SCH ×2 (08:53→20:42)
--- NOTE | 2022-07-26 10:08 | P.PN ---
Subjective She was seen in follow-up for end-stage renal disease. She is maintained on hemodialysis on Sunday schedule. Tolerating dialysis well. Blood pressure stable. Complaining of productive cough. Vital signs are stable. General: No acute distress. HEENT: Head exam is unremarkable. LUNGS: No audible rhonchi or wheezes. HEART: Rate and Rhythm are regular. ABDOMEN: Nontender. Obese. EXTREMITITES: No edema. Objective - Vital Signs Vital signs: Vital Signs Temp 97.6 F 07/26/22 07:00 Pulse 80 07/26/22 09:07 Resp 16 07/26/22 07:00 BP 110/61 07/26/22 07:00 Pulse Ox 97 07/26/22 07:00 FiO2 Intake & Output 07/25/22 07/26/22 07/26/22 18:59 06:59 18:59 Intake Total 600 Output Total 2500 Balance -1900 Weight 102.058 kg Intake: Hemodialysis 600 Output: Hemodialysis 2500 Other: Voiding Method Toilet # Voids 0 2 - Labs CBC & Chem 7: 07/24/22 09:17 07/24/22 09:17 Labs: Abnormal Lab Results - Last 24 Hours (Table) 07/25/22 07/26/22 07/26/22 Range/Units 19:44 03:54 06:05 POC Glucose (mg/dL) 296 H 248 H 269 H (70-110) mg/dL Assessment and Plan Plan: Assessment: 1. End-stage renal disease maintained on hemodialysis on Sunday schedule. 2. Shortness of breath possibly from URI. ?COPD exac. On antibiotics and IV steroids. 3. Hypertension with chronic kidney disease. Stable. 4. History of hemorrhagic CVA. 5. 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 6. Metabolic acidosis due to CKD. Expect improvement post HD. Plan: Currently seen while undergoing hemodialysis. Next treatment on Sunday.
[2022-07-26 11:35] LABS: Glucose,Whole Blood 146 mg/dL (70-110)
[2022-07-26] MEDS: FUROSEMIDE 40 MG TAB PO SCH (12:00)
[2022-07-26] MEDS: amLODIPine 10 MG TAB PO SCH (12:00)
[2022-07-26] MEDS: lisinopriL 20 MG TAB PO SCH (12:00)
[2022-07-26] MEDS: METOPROLOL TARTRATE 25 MG TAB PO SCH ×2 (12:00→20:36)
--- NOTE | 2022-07-26 14:09 | P.PN ---
Progress Note - Text Progress Note Date: 07/26/22 Chief Complaint: Short of breath History of presenting complaint: This is a pleasant [address] Rizvi. Chronic stable medical conditions include hypertension, hyperlipidemia, depression, anxiety, osteoarthritis. End-stage kidney disease on hemodialysis. Patient presents to the ER with worsening short of breath. Cough. Some nasal drainage. Relevant to current of which is not known. No obvious fever and chills. Appetite is fair. Some edema. Did not get hemodialysis today. No chest pain. Admitted with acute COPD exacerbation, acute bronchitis, acute fluid overload. Bronchodilators. Doxycycline. Hemodialysis. July 25: Breathing a bit better. Dose also wheezing. Getting bronchodilators. Doxycycline. Eating better. Does not like hospital food. July 26: Breathing better. hemodialyzed today. Had a bout of coughing and wheezing earlier. Better now. Requesting 1 more day stay in hospital. No sputum. Active Medications Acetaminophen (Acetaminophen Tab 325 Mg Tab) 650 mg PO Q6HR PRN PRN Reason: Mild Pain or Fever > 100.5 Albuterol/Ipratropium (Ipratropium-Albuterol 3 Ml Neb) 3 ml INHALATION RT-QID [facility] Last Admin: 07/26/22 11:43 Dose: Not Given Amlodipine Besylate (Amlodipine 10 Mg Tab) 10 mg PO DAILY [facility] Last Admin: 07/26/22 12:00 Dose: 10 mg Atorvastatin Calcium (Atorvastatin 20 Mg Tab) 20 mg PO HS [facility] Last Admin: 07/25/22 20:52 Dose: 20 mg Budesonide (Budesonide 1 Mg/2 Ml Nebu) 1 mg INHALATION RT-BID [facility] Last Admin: 07/26/22 08:53 Dose: 1 mg Calcium Acetate (Calcium Acetate 667 Mg Tab) 1,334 mg PO AC-TID [facility] Last Admin: 07/26/22 12:01 Dose: 1,334 mg Calcium Carbonate/Glycine (Calcium Carbonate 500 Mg Chewable) 1,000 mg PO Q4HR PRN PRN Reason: Dyspepsia Dextrose/Water (Dextrose 50% Syringe 50 Ml) 25 ml IVP PER PROTOCOL PRN; Protocol PRN Reason: Hypoglycemia Dextrose/Water (Dextrose 50% Syringe 50 Ml) 50 ml IVP PER PROTOCOL PRN; Protocol PRN Reason: Hypoglycemia Docusate Sodium (Docusate 100 Mg Cap) 100 mg PO Q4H PRN PRN Reason: Constipation Doxycycline Monohydrate (Doxycycline 100 Mg Cap) 100 mg PO BID [facility]; Protocol Last Admin: 07/26/22 07:50 Dose: 100 mg Enoxaparin Sodium (Enoxaparin 30 Mg/0.3 Ml Syringe) 30 mg SQ HS [facility] Last Admin: 07/25/22 20:53 Dose: 30 mg Ergocalciferol (Ergocalciferol 1,250 Mcg (50,000 Iu) Capsule) 1,250 mcg PO MO [facility] Formoterol Fumarate (Formoterol Fumarate 20 Mcg/2 Ml Nebu) 20 mcg INHALATION RT-BID [facility] Last Admin: 07/26/22 09:10 Dose: Not Given Furosemide (Furosemide 40 Mg Tab) 40 mg PO DAILY [facility] Last Admin: 07/26/22 12:00 Dose: 40 mg Guaifenesin (Guaifenesin 600 Mg Tablet.Er) 600 mg PO QID [facility] Last Admin: 07/26/22 12:01 Dose: 600 mg Insulin Aspart (Insulin Aspart (Novolog) 100 Unit/Ml Vial) 0 unit SQ [facility]; Protocol Last Admin: 07/26/22 11:52 Dose: Not Given Insulin Detemir (Insulin Detemir (Levemir) 100 Unit/Ml Syr) 12 unit SQ [facility] Last Admin: 07/25/22 20:52 Dose: 12 unit Lactulose (Lactulose 20 Gm/30 Ml Cup) 20 gm PO DAILY PRN PRN Reason: Constipation Levothyroxine Sodium (Levothyroxine 112 Mcg Tab) 112 mcg PO AC-BRKFST [facility] Last Admin: 07/26/22 06:31 Dose: 112 mcg Lisinopril (Lisinopril 20 Mg Tab) 40 mg PO DAILY [facility] Last Admin: 07/26/22 12:00 Dose: 40 mg Loratadine/Pseudoephedrine Sulfate (Loratadine-Pseudoeph 5-120 Mg 1 Each Tab.Er.12h) 1 each PO Q12HR [facility] Last Admin: 07/26/22 07:50 Dose: 1 each Lorazepam (Lorazepam 0.5 Mg Tab) 0.5 mg PO Q6HR PRN PRN Reason: Anxiety Last Admin: 07/25/22 02:47 Dose: 0.5 mg Melatonin (Melatonin 3 Mg Tablet) 3 mg PO HS PRN PRN Reason: Insomnia Last Admin: 07/25/22 02:47 Dose: 3 mg Methylprednisolone Sodium Succinate (Methylprednisolone Sod Succi 40 Mg/Ml 1 Ml Vial) 40 mg IV Q8HR [facility] Last Admin: 07/26/22 07:48 Dose: 40 mg Metoprolol Tartrate (Metoprolol Tartrate 25 Mg Tab) 25 mg PO BID [facility] Last Admin: 07/26/22 12:00 Dose: 25 mg Multivit/Ca Carb/B Cmplx/FA/Prenat (Folic Acid-Vit B Complex-Vit C 1 Cap) 1 each PO HS [facility] Last Admin: 07/25/22 20:53 Dose: 1 each Naloxone HCl (Naloxone 0.4 Mg/Ml 1 Ml Vial) 0.2 mg IV Q2M PRN PRN Reason: Opioid Reversal Ondansetron HCl (Ondansetron 4 Mg/2 Ml Vial) 4 mg IVP Q8HR PRN PRN Reason: Nausea And Vomiting Last Admin: 07/25/22 05:34 Dose: 4 mg Oxycodone/Acetaminophen (Oxycodone-Apap 10-325mg 1 Each Tab) 1 each PO TID PRN PRN Reason: Pain Last Admin: 07/26/22 11:57 Dose: 1 each Past medical history to include: Hypertension, hyperlipidemia, depression, anxiety, osteoarthritis, end-stage kidney disease on hemodialysis, uterine cancer, bariatric surgery, depression, osteoarthritis Social history: Quit smoking over 30 years ago. Lives alone Physical examination: VITAL SIGNS: 97.2, 82, 16, 127 Lasix 9, 97% room air GENERAL: BMI 42.5, declining, but in distress EYES: Pupils equal. Conjunctiva normal. HEENT: External appearance of nose and ears normal, oral cavity grossly normal. NECK: JVD not raised; masses not palpable. HEART: First and second heart sounds are normal; some edema. LUNGS: Respiratory rate increased; creased wheezing ABDOMEN: Soft, nontender, liver spleen not palpable, no masses palpable. PSYCH: Alert and oriented x3; mood and affect anxiousl. MUSCULOSKELETAL:No Clubbing/cyanosis;muscles-grossly intact. OA INVESTIGATIONS, reviewed in the clinical context: White count 5.7 hemoglobin 10.6 platelets 186 sodium 133 potassium 4.3 BUN 42 creatinine 5.47 Influenza type A, B, RSV, COVID-19: Not detected EKG tracing personally reviewed by me-normal sinus rhythm. Anterior leads poor R-wave progression Chest x-ray film personally reviewed by me-right diaphragm elevated. Some venous prominence Assessment and plan: -Acute COPD exacerbation in a prior smoker: Improving DuoNeb 4 times a day, nebulized Perforomist, Pulmicort. IV Solu-Medrol -Postnasal drainage. Claritin-D -Acute bronchitis Doxycycline -Acute fluid overload from incomplete hemodialysis/pulmonary edema Hemodialysis. -Anemia of chronic kidney disease -End-stage kidney disease on hemodialysis. From diabetic nephropathy Follow with nephrology -Hyperlipidemia Crestor 10 mg daily at bedtime -Essential hypertension, Lisinopril 40 mg daily, Norvasc 10 mg daily, Lopressor 25 mg twice a day -Primary osteoarthritis Tylenol as needed -Morbid obesity BMI 2.5 Weight loss measures -DO NOT RESUSCITATE Continue current medications. Discussed with patient. Hopefully discharge tomorrow.
[2022-07-26 17:18] LABS: Glucose,Whole Blood 241 mg/dL (70-110)
[2022-07-26 20:22] LABS: Glucose,Whole Blood 300 mg/dL (70-110)
[2022-07-26] MEDS: ATORVASTATIN 20 MG TAB PO SCH (20:36)
[2022-07-26] MEDS: INSULIN DETEMIR (LEVEMIR) 100 UNIT/ML SYR SQ SCH (20:36)
[2022-07-26] MEDS: FOLIC ACID-VIT B COMPLEX-VIT C 1 CAP PO SCH (20:36)
[2022-07-27] MEDS: methylPREDNISolone SOD SUCCI 40 MG/ML 1 ML VIAL IV SCH ×2 (00:03→08:45)
[2022-07-27] MEDS: ENOXAPARIN 30 MG/0.3 ML SYRINGE SQ SCH (00:03)
[2022-07-27] MEDS: oxyCODONE-APAP 10-325MG 1 EACH TAB PO PRN (04:06)
[2022-07-27 06:16] LABS: Glucose,Whole Blood 214 mg/dL (70-110)
[2022-07-27] MEDS: LEVOTHYROXINE 112 MCG TAB PO SCH (06:20)
[2022-07-27] MEDS: INSULIN ASPART (NovoLOG) 100 UNIT/ML VIAL SQ SCH (06:20)
[2022-07-27 07:27] VITALS: BP 129/70; RESP 16; TEMP 97.9
[2022-07-27] MEDS: IPRATROPIUM-ALBUTEROL 3 ML NEB INHALATION SCH ×2 (07:55→11:03)
[2022-07-27] MEDS: BUDESONIDE 1 MG/2 ML NEBU INHALATION SCH (07:55)
[2022-07-27] MEDS: FORMOTEROL FUMARATE 20 MCG/2 ML NEBU INHALATION SCH (07:55)
[2022-07-27] MEDS: guaiFENesin 600 MG TABLET.ER PO SCH (08:44)
[2022-07-27] MEDS: DOXYCYCLINE 100 MG CAP PO SCH (08:44)
[2022-07-27] MEDS: CALCIUM ACETATE 667 MG TAB PO SCH (08:44)
[2022-07-27] MEDS: amLODIPine 10 MG TAB PO SCH (08:44)
[2022-07-27] MEDS: LORATADINE-PSEUDOEPH 5-120 MG 1 EACH TAB.ER.12H PO SCH (08:44)
[2022-07-27] MEDS: lisinopriL 20 MG TAB PO SCH (08:44)
[2022-07-27] MEDS: FUROSEMIDE 40 MG TAB PO SCH (08:45)
[2022-07-27] MEDS: METOPROLOL TARTRATE 25 MG TAB PO SCH (08:45)
[2022-07-27 11:15] VITALS: PULSE 84
--- NOTE | 2022-07-27 11:59 | P.PN ---
Subjective Patient is seen for follow-up for end-stage renal disease. She is maintained on a Sunday schedule. Patient is complaining of cough this morning however her respiratory status is improved since admission. She is being discharged today. Objective - Vital Signs Vital signs: Vital Signs Temp 97.9 F 07/27/22 07:00 Pulse 84 07/27/22 11:14 Resp 16 07/27/22 08:00 BP 129/70 07/27/22 07:00 Pulse Ox 95 07/27/22 07:00 FiO2 Intake & Output 07/26/22 07/27/22 07/27/22 18:59 06:59 18:59 Intake Total 400 408 Output Total 2400 Balance -1999 408 Intake: Oral 408 Hemodialysis 400 Output: Hemodialysis 2400 Other: Voiding Method Toilet Toilet Toilet # Voids 1 - Exam Awake, comfortable, no acute distress Examination of the heart S1 and S2 Examination lungs bilateral breath sounds are heard occasional wheezing heard Abdomen is soft obese Examination lower extremity shows no evidence of edema [employer] exam grossly intact - Labs CBC & Chem 7: 07/24/22 09:17 07/24/22 09:17 Labs: Abnormal Lab Results - Last 24 Hours (Table) 07/26/22 07/26/22 07/26/22 Range/Units 06:40 17:17 20:21 POC Glucose (mg/dL) 241 H 300 H (70-110) mg/dL Hemoglobin A1c 6.1 H (<=6.0) % 07/27/22 Range/Units 06:14 POC Glucose (mg/dL) 214 H (70-110) mg/dL Hemoglobin A1c (<=6.0) % Assessment and Plan Assessment: Assessment: 1. End-stage renal disease maintained on hemodialysis on Sunday schedule. 2. Shortness of breath possibly from URI. ?COPD exac. On antibiotics and steroids. 3. Hypertension with chronic kidney disease. Stable. 4. History of hemorrhagic CVA. 5. 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 6. Metabolic acidosis due to CKD. Expect improvement post HD. Plan: Hemodialysis in a.m. as outpatient.
--- NOTE | 2022-07-27 14:57 | P.DS ---
Providers Date of admission: 07/24/22 12:31 Expected date of discharge: 07/27/22 Attending physician: Duncan Panchal Consults: 07/24/22 12:31 Consult Physician Urgent Consulting Provider: Marco Augustine Consult Reason/Comments: ESRD on dialysis, missed dialysis today Do you want consulting provider notified?: Yes Primary care physician: Gauatm Rizvi [facility] Course: Chief Complaint: Short of breath History of presenting complaint: This is a pleasant [address] Rizvi. Chronic stable medical conditions include hypertension, hyperlipidemia, depression, anxiety, osteoarthritis. End-stage kidney disease on hemodialysis. Patient presents to the ER with worsening short of breath. Cough. Some nasal drainage. Relevant to current of which is not known. No obvious fever and chills. Appetite is fair. Some edema. Did not get hemodialysis today. No chest pain. Admitted with acute COPD exacerbation, acute bronchitis, acute fluid overload. Bronchodilators. Doxycycline. Hemodialysis. July 25: Breathing a bit better. Dose also wheezing. Getting bronchodilators. Doxycycline. Eating better. Does not like hospital food. July 26: Breathing better. hemodialyzed today. Had a bout of coughing and wheezing earlier. Better now. Requesting 1 more day stay in hospital. No sputum. July 27: Breathing overall much better. Discussed with the patient using incentive spirometry. And ambulating and sitting up in a chair. Eating well. His hemodialysis yesterday. We will discharge on DuoNeb, prednisone tapered in Symbicort. Mucinex. Discussion and discharge planning more than 35 minutes Past medical history to include: Hypertension, hyperlipidemia, depression, anxiety, osteoarthritis, end-stage kidney disease on hemodialysis, uterine cancer, bariatric surgery, depression, osteoarthritis Social history: Quit smoking over 30 years ago. Lives alone Physical examination: VITAL SIGNS: 97.9, 80, 16, 129/70, 95% room air GENERAL: BMI 42.5, renal, comfortable EYES: Pupils equal. Conjunctiva normal. HEENT: External appearance of nose and ears normal, oral cavity grossly normal. NECK: JVD not raised; masses not palpable. HEART: First and second heart sounds are normal; some edema. LUNGS: Respiratory rate normal; decreased breath sound ABDOMEN: Soft, nontender, liver spleen not palpable, no masses palpable. PSYCH: Alert and oriented x3; mood and affect anxiousl. MUSCULOSKELETAL:No Clubbing/cyanosis;muscles-grossly intact. OA INVESTIGATIONS, reviewed in the clinical context: White count 5.7 hemoglobin 10.6 platelets 186 sodium 133 potassium 4.3 BUN 42 creatinine 5.47 Influenza type A, B, RSV, COVID-19: Not detected EKG tracing personally reviewed by me-normal sinus rhythm. Anterior leads poor R-wave progression Chest x-ray film personally reviewed by me-right diaphragm elevated. Some venous prominence Assessment and plan: -Acute COPD exacerbation in a prior smoker: Better DuoNeb 4 times a day, nebulized Perforomist, Pulmicort. IV Solu-Medrol Discharged on DuoNeb 3 times a day, prednisone taper, Symbicort 1 puff twice a day, Mucinex -Postnasal drainage. Claritin-D -Acute bronchitis Doxycycline-3 days -Acute fluid overload from incomplete hemodialysis/pulmonary edema: Better Hemodialysis. -Anemia of chronic kidney disease -End-stage kidney disease on hemodialysis. From diabetic nephropathy Follow with nephrology -Hyperlipidemia Crestor 10 mg daily at bedtime -Essential hypertension, Lisinopril 40 mg daily, Norvasc 10 mg daily, Lopressor 25 mg twice a day -Primary osteoarthritis Tylenol as needed -Morbid obesity BMI 2.5 Weight loss measures -DO NOT RESUSCITATE Disposition: Home Plan - Discharge Summary New Discharge Prescriptions: New Loratadine-Pseudoeph 5-120 mg [Claritin-D 12 Hour] 1 each PO Q12HR #10 tab Ipratropium-Albuterol Nebulize [Duoneb 0.5 mg-3 mg/3 ml Soln] 3 ml INHALATION TID #90 each predniSONE 10 mg PO DAILY #30 tab Budesonide/Formoterol Fumarate [Symbicort 160-4.5 Mcg Inhaler] 1 puff INHALATION BID #10.2 gm Doxycycline [Vibramycin] 100 mg PO BID #6 cap guaiFENesin [Mucinex] 600 mg PO QID #30 tab Continue Furosemide [Lasix] 40 mg PO DAILY Levothyroxine Sodium [Synthroid] 112 mcg PO AC-BRKFST Rosuvastatin Calcium [Crestor] 10 mg PO HS Metoprolol Tartrate [Lopressor] 25 mg PO BID Calcium Acetate 1,334 mg PO AC-TID amLODIPine [Norvasc] 10 mg PO DAILY Ergocalciferol [Vitamin D2 (1250 Mcg = 64016 Iu)] 1,250 mcg PO MO lisinopriL 40 mg PO DAILY oxyCODONE-APAP 10-325MG [Percocet 10-325 mg] 1 tab PO TID PRN PRN Reason: Pain Albuterol Inhaler [Ventolin Hfa Inhaler] 2 puff INHALATION RT-QID PRN PRN Reason: Shortness Of Breath Albuterol Nebulized [Ventolin Nebulized] 2.5 mg INHALATION RT-QID PRN PRN Reason: Shortness Of Breath Nephro-Karla Tab 1 tab PO HS Lidocaine-Prilocaine Cream [Emla Cream 2.5%/2.5%] 1 applic TOPICAL DAILY PRN PRN Reason: dialysis Discontinued hydrALAZINE HCL [Apresoline] 25 mg PO HS Docusate [Colace] 100 mg PO Q4H PRN PRN Reason: Constipation Discharge Medication List Furosemide [Lasix] 40 mg PO DAILY 03/18/19 [History] Levothyroxine Sodium [Synthroid] 112 mcg PO AC-BRKFST 03/18/19 [History] Rosuvastatin Calcium [Crestor] 10 mg PO HS 03/18/19 [History] Calcium Acetate 1,334 mg PO AC-TID 12/22/19 [History] Metoprolol Tartrate [Lopressor] 25 mg PO BID 12/22/19 [History] amLODIPine [Norvasc] 10 mg PO DAILY 08/02/20 [History] Ergocalciferol [Vitamin D2 (1250 Mcg = 33061 Iu)] 1,250 mcg PO MO 10/08/20 [History] Nephro-Karla Tab 1 tab PO HS 01/09/22 [History] lisinopriL 40 mg PO DAILY 01/09/22 [History] oxyCODONE-APAP 10-325MG [Percocet 10-325 mg] 1 tab PO TID PRN 02/18/22 [History] Albuterol Inhaler [Ventolin Hfa Inhaler] 2 puff INHALATION RT-QID PRN 06/15/22 [History] Albuterol Nebulized [Ventolin Nebulized] 2.5 mg INHALATION RT-QID PRN 06/15/22 [History] Lidocaine-Prilocaine Cream [Emla Cream 2.5%/2.5%] 1 applic TOPICAL DAILY PRN 06/15/22 [History] Budesonide/Formoterol Fumarate [Symbicort 160-4.5 Mcg Inhaler] 1 puff INHALATION BID #10.2 gm 07/27/22 [Rx] Doxycycline [Vibramycin] 100 mg PO BID #6 cap 07/27/22 [Rx] Ipratropium-Albuterol Nebulize [Duoneb 0.5 mg-3 mg/3 ml Soln] 3 ml INHALATION TID #90 each 07/27/22 [Rx] Loratadine-Pseudoeph 5-120 mg [Claritin-D 12 Hour] 1 each PO Q12HR #10 tab 07/27/22 [Rx] guaiFENesin [Mucinex] 600 mg PO QID #30 tab 07/27/22 [Rx] predniSONE 10 mg PO DAILY #30 tab 07/27/22 [Rx] Follow up Appointment(s)/Referral(s): Gautam Rizvi DO [Primary Care Provider] - 1-2 days Suhas Gonsalez DO [Doctor of Osteopathic Medicine] - 08/09/22 9:45 am Patient Instructions/Handouts: COPD (Chronic Obstructive Pulmonary Disease) (GEN), Chronic Lung Disease and Infection Prevention (DC), Energy Conservation Techniques (ED) Discharge/Stand Alone Forms: Assisted Living Facilities Discharge Disposition: HOME SELF-CARE
[2022-07-31] MEDS ORDERED: ERGOCALCIFEROL 1,250 MCG (50,000 IU) CAPSULE PO SCH (09:00)
== END 2022-07-27 12:20 | disposition home or self-care (01) ==
LOC: EC 08:25 → 6NMEDSUR 12:31 → 1SOBS 07-25 12:09 → 6NMEDSUR 07-26 14:12
PROVIDERS: ADMIT Hospitalist; ATTEND Hospitalist
DX: J44.1 Chronic obstructive pulmonary disease with (acute) exacerbation (principal); I12.0 Hypertensive chronic kidney disease with stage 5 chronic kidney disease or end stage renal disease; N18.6 End stage renal disease; I83.90 Asymptomatic varicose veins of unspecified lower extremity; I25.2 Old myocardial infarction; Z99.2 Dependence on renal dialysis; Z79.899 Other long term (current) drug therapy; Z79.890 Hormone replacement therapy; Z85.42 Personal history of malignant neoplasm of other parts of uterus; Z86.73 Personal history of transient ischemic attack (TIA), and cerebral infarction without residual deficits; Z98.84 Bariatric surgery status; Z96.653 Presence of artificial knee joint, bilateral; Z90.49 Acquired absence of other specified parts of digestive tract; Z98.42 Cataract extraction status, left eye; Z98.41 Cataract extraction status, right eye; Z87.891 Personal history of nicotine dependence; Z83.3 Family history of diabetes mellitus; Z82.49 Family history of ischemic heart disease and other diseases of the circulatory system; Z80.9 Family history of malignant neoplasm, unspecified; Z20.822 Contact with and (suspected) exposure to COVID-19
CPT/HCPCS: 96376 ×5; 96372 ×3; 96374; 96375; 99285; 36415; 94640 ×8; 93005; 83880; 80053; 83605; 84484; 85025; 85610; 85730; 86706; 87340; 83036; 87636; 71046; G0378 ×5; J2920 ×4; J2405; J1650 ×3; 90935

== ENCOUNTER 2022-12-14 06:30 | Day surgery (SDC) | payer MEDICARE, BC ==
[2022-12-12 11:29] VITALS: BMI 39.8
[~2022-12-14 06:30] MED LIST changes: -IOPAMIDOL-250 50ML BTL INTRAARTER ONE; +LACTATED RINGERS 1,000 ML IV SCH; +LIDOCAINE 1% (10MG/ML) FOR IV START INTRADERMA PRN; -LIDOCAINE 1% INJ 10MG/ML (20 ML MDV) SQ ONE; -MIDAZOLAM 2 MG/2 ML VIAL IVP ONE; -SODIUM CHLORIDE 0.9% 500 ML 500 ML IV SCH; -fentaNYL (PF) 50 MCG/ML 2 ML AMP IVP ONE
[2022-12-14] MEDS ORDERED: SODIUM CHLORIDE 0.9% 1,000 ML IV ONE (07:14)
[2022-12-14 07:26] LABS: Glucose,Whole Blood 114 mg/dL (70-110)
[2022-12-14 07:41] VITALS: RESP 18; TEMP 98
--- NOTE | 2022-12-14 07:45 | P.GSHP ---
History of Present Illness H&P Date: 12/14/22 CHIEF COMPLAINT: Colon screen HISTORY OF PRESENT ILLNESS: The patient is a 77-year-old female who presents for colon screen. Lower endoscopy was offered for further evaluation and management. PAST MEDICAL HISTORY: Please see list. PAST SURGICAL HISTORY: Please see list. MEDICATIONS: Please see list. ALLERGIES: Please see list. SOCIAL HISTORY: No illicit drug use FAMILY HISTORY: No reports of Crohn disease or ulcerative colitis. REVIEW OF ORGAN SYSTEMS: CONSTITUTIONAL: No reports of fevers or chills. PHYSICAL EXAM: VITAL SIGNS: Stable GENERAL: Well-developed pleasant in no acute distress. HEENT: No scleral icterus. Extraocular movements grossly intact. Moist buccal mucosa. NECK: Supple without lymphadenopathy. CHEST: Unlabored respirations. Equal bilateral excursions. CARDIOVASCULAR: Regular rate and rhythm. Distal 2+ pulses. ABDOMEN: Soft, nontender, nondistended. MUSCULOSKELETAL: No clubbing, cyanosis, or edema. ASSESSMENT: 1. Colon screen. PLAN: 1. Recommend proceeding with a lower endoscopy Past Medical History Past Medical History: Asthma, Cancer, COPD, Diabetes Mellitus, Dialysis, Hyperlipidemia, Hypertension, Myocardial Infarction ([place]), Osteoarthritis (OA), Pneumonia, Renal Disease, Thyroid Disorder Additional Past Medical History / Comment(s): Hx Uterine cancer 25 yrs ago, hemodialysis Sun, Sun and Sun, varicose veins., "mild heart attack"" "brain bleed twice" chronic diarrhea, hx "14 polyps", "chronic back pain", anemia, current edema kashif feet, diet control diabetic Last Myocardial Infarction Date:: unknown History of Any Multi-Drug Resistant Organisms: None Reported Past Surgical History: Appendectomy, Bariatric Surgery, Cholecystectomy, Hysterectomy, Joint Replacement, Tonsillectomy Additional Past Surgical History / Comment(s): gastric bypass, surgery after fall -fx rt leg and foot, kashif knee replacement, kashif cataracts, surgery x 2 or "brain bleed", fistula for dialysis, COLONOSCOPY, Past Anesthesia/Blood Transfusion Reactions: Family History of Problems w/ Anesthesia Additional Past Anesthesia/Blood Transfusion Reaction / Comment(s): MOTHER PONV Smoking Status: Former smoker - Past Family History Mother Family Medical History: Cancer Father Family Medical History: Diabetes Mellitus, Hypertension Sister(s) Family Medical History: Cancer Medications and Allergies Home Medications Medication Instructions Recorded Confirmed Type Furosemide [Lasix] 20 mg PO BID 03/18/19 12/12/22 History Levothyroxine Sodium [Synthroid] 112 mcg PO AC-BRKFST 03/18/19 12/12/22 History Rosuvastatin Calcium [Crestor] 10 mg PO HS 03/18/19 12/12/22 History Calcium Acetate 1,334 mg PO AC-TID 12/22/19 12/12/22 History Metoprolol Tartrate [Lopressor] 25 mg PO DAILY 12/22/19 12/12/22 History amLODIPine [Norvasc] 10 mg PO DAILY 08/02/20 12/12/22 History oxyCODONE-APAP 10-325MG [Percocet 1 tab PO TID PRN 02/18/22 12/12/22 History 10-325 mg] Albuterol Inhaler [Ventolin Hfa 2 puff INHALATION RT-QID PRN 06/15/22 12/12/22 History Inhaler] Albuterol Nebulized [Ventolin 2.5 mg INHALATION RT-QID PRN 06/15/22 12/12/22 History Nebulized] Ipratropium-Albuterol Nebulize 3 ml INHALATION TID #90 each 07/27/22 12/12/22 Rx [Duoneb 0.5 mg-3 mg/3 ml Soln] Vit B Comp No.3/Folic/C/Biotin 1 each PO DAILY 12/12/22 12/12/22 History [Rosy-Karla Rx Tablet] Allergies Allergy/AdvReac Type Severity Reaction Status Date / Time naproxen [From Naprosyn] Allergy Dyspnea Verified 12/12/22 11:10 blood thinner Allergy "brain Uncoded 12/12/22 11:10 bleed" Surgical - Exam Vital Signs Temp Pulse Resp BP Pulse Ox 98 F 69 18 143/69 97 12/14/22 07:28 12/14/22 07:28 12/14/22 07:28 12/14/22 07:28 12/14/22 07:28 Results - Labs Abnormal Lab Results - Last 24 Hours (Table) 12/14/22 Range/Units 07:25 POC Glucose (mg/dL) 114 H (70-110) mg/dL
[2022-12-14 08:06] LABS: African American GFR (CKD) 13 (>60 ml/min/1.73 sqM); Anion Gap 14 mmol/L; Blood Urea Nitrogen 22 mg/dL (7-17); Calcium 8.9 mg/dL (8.4-10.2); Carbon Dioxide 29 mmol/L (22-30); Chloride 99 mmol/L (98-107); Glucose 121 mg/dL (74-99); Non-African American GFR(CKD) 11 (>60 ml/min/1.73 sqM); Potassium 3.7 mmol/L (3.5-5.1); Sodium 142 mmol/L (137-145)
[2022-12-14] MEDS ORDERED: PROPOFOL 10 MG/ML 20 ML VIAL IV ONE (08:24)
[2022-12-14] MEDS ORDERED: LIDOCAINE 2% (PF) 20 MG/ML 5 ML VIAL ONE (08:24)
--- NOTE | 2022-12-14 08:48 | P.PCN ---
Date of Procedure: 12/14/22 Description of Procedure: PREOPERATIVE DIAGNOSIS: Dysphagia. Nausea with vomiting. History of gastric bypass POSTOPERATIVE DIAGNOSIS: Dysphagia. 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 INDICATIONS: The patient is a 77-year-old female who presents with a history of gastric bypass, dysphagia, including nausea and vomiting. Benefits and risks of the procedure were described. Informed consent was obtained. DESCRIPTION: The patient was brought into the endoscopy suite and laid in the left lateral decubitus position. After a timeout was confirmed, the procedure was initiated. An Olympus gastroscope was passed along the posterior oropharynx down to the distal esophagus where the squamocolumnar junction was unremarkable. Moderate tertiary contractions consistent with presbyesophagus was found. The gastric pouch was entered. A gastrojejunal stricture of 15 mm was found as the adult gastroscope was 9.5 mm in size. Attention was brought to the upper esophageal stenosis. The bite block was removed and mouth was opened with fingers. A rigid dilator, 51 [place] was placed over a guidewire to 45 cm from the incisors and left for 2 minutes after exchanging the scope. A ServiceNow balloon dilator was placed through the scope. The scope was reentered for balloon dilation of the gastrojejunal anastomosis. Final insufflation from 15 to 20 mm was performed with a total of 2 minutes. The scope was advanced up to 60 cm from the incisors into the Rene limb. The mucosa of the gastrojejunal anastomosis was intact. No chronic gastrojejunal marginal ulcer was encountered. No full-thickness injury was encountered. The GI tract was desufflated. The patient tolerated the procedure well. FINDINGS: Squamocolumnar junction unremarkable at 40 cm. Stricture of approximately 15 mm encountered. Moderate to severe tertiary contractions for presbyesophagus Rigid dilation of upper esophageal sphincter, 54-[place]an No chronic gastrojejunal ulceration encountered. Successful balloon dilatation to 20 mm for jejunal stricture RECOMMENDATIONS: Recommend blenderized diet due to combined presbyesophagus and esophageal stenosis Upper endoscopy as needed.
--- NOTE | 2022-12-14 09:19 | P.PCN ---
Date of Procedure: 12/14/22 Description of Procedure: PREOPERATIVE DIAGNOSIS: Personal history of colon polyps Colonoscopy screening POSTOPERATIVE DIAGNOSIS: Tubular adenoma transverse colon Sigmoid diverticulosis, severe Internal hemorrhoids, grade 2 Arteriovenous malformation, proximal ascending colon OPERATION: Colonoscopy to the ileocecal valve and appendiceal orifice, cecum Colonoscopy with hot snare polypectomy SURGEON: Sanjuanita Acosta MD. ANESTHESIA: MAC. INDICATIONS: The patient is an 77-year-old female who presents personal history of colon polyps. Last colonoscopy 5 years. Benefits and risks were described and informed consent was obtained. DESCRIPTION OF PROCEDURE: The patient had undergone Suprep. The patient had been brought into the operating room and laid in the left lateral decubitus position. After adequate intravenous sedation, the rectum was examined with 2% lidocaine jelly. External hemorrhoids were encountered. The rectal tone was within normal limits. No lesions were palpated in the rectal vault. An Olympus colonoscope was advanced until the cecum, ileocecal valve and appendiceal orifice were clearly viewed. The prep was fair. Sigmoid diverticulosis, severe was encountered. Colonic polyps were found and removed. No evidence of focal colitis was found. Retroflexion of the scope demonstrated grade 2 internal hemorrhoids without active bleeding or inflammation. The colon was desufflated. The patient had tolerated the procedure well. Withdrawal time was over 6 minutes. FINDINGS: Aronchick preparation quality scale 3 (1-5) Internal hemorrhoids, grade 2 External hemorrhoids, grade 2. Arteriovenous malformations proximal ascending colon, Sigmoid diverticulosis, severe Removal of 1 polyps: - Snare polypectomy mid transverse colon, 5 mm polyp. No focal colitis. RECOMMENDATIONS: Repeat colonoscopy in 3 years, 2025 Plan - Discharge Summary Discharge Rx Participant: No New Discharge Prescriptions: Continue Furosemide [Lasix] 20 mg PO BID Levothyroxine Sodium [Synthroid] 112 mcg PO AC-BRKFST Rosuvastatin Calcium [Crestor] 10 mg PO HS Metoprolol Tartrate [Lopressor] 25 mg PO DAILY Calcium Acetate 1,334 mg PO AC-TID amLODIPine [Norvasc] 10 mg PO DAILY oxyCODONE-APAP 10-325MG [Percocet 10-325 mg] 1 tab PO TID PRN PRN Reason: Pain Albuterol Inhaler [Ventolin Hfa Inhaler] 2 puff INHALATION RT-QID PRN PRN Reason: Shortness Of Breath Albuterol Nebulized [Ventolin Nebulized] 2.5 mg INHALATION RT-QID PRN PRN Reason: Shortness Of Breath Ipratropium-Albuterol Nebulize [Duoneb 0.5 mg-3 mg/3 ml Soln] 3 ml INHALATION TID #90 each Vit B Comp No.3/Folic/C/Biotin [Rosy-Karla Rx Tablet] 1 each PO DAILY Discharge Medication List Furosemide [Lasix] 20 mg PO BID 03/18/19 [History] Levothyroxine Sodium [Synthroid] 112 mcg PO AC-BRKFST 03/18/19 [History] Rosuvastatin Calcium [Crestor] 10 mg PO HS 03/18/19 [History] Calcium Acetate 1,334 mg PO AC-TID 12/22/19 [History] Metoprolol Tartrate [Lopressor] 25 mg PO DAILY 12/22/19 [History] amLODIPine [Norvasc] 10 mg PO DAILY 08/02/20 [History] oxyCODONE-APAP 10-325MG [Percocet 10-325 mg] 1 tab PO TID PRN 02/18/22 [History] Albuterol Inhaler [Ventolin Hfa Inhaler] 2 puff INHALATION RT-QID PRN 06/15/22 [History] Albuterol Nebulized [Ventolin Nebulized] 2.5 mg INHALATION RT-QID PRN 06/15/22 [History] Ipratropium-Albuterol Nebulize [Duoneb 0.5 mg-3 mg/3 ml Soln] 3 ml INHALATION TID #90 each 07/27/22 [Rx] Vit B Comp No.3/Folic/C/Biotin [Rosy-Karla Rx Tablet] 1 each PO DAILY 12/12/22 [History] Follow up Appointment(s)/Referral(s): Sanjuanita Acosta MD [STAFF PHYSICIAN] - 01/02/23 10:00 am Patient Instructions/Handouts: *Surgery [facility] - (Anesthesia) Discharge Instructions Outpatient Surgery, Diverticulosis Diet (GEN), Colorectal Polyps (GEN), Esophageal Dilation (DC) Activity/Diet/Wound Care/Special Instructions: Repeat colonoscopy in 3 years, 2025 Discharge Disposition: HOME SELF-CARE
[2022-12-14 09:35] VITALS: BP 153/80; PULSE 82
== END 2022-12-14 10:07 | disposition home or self-care (01) ==
LOC: ORWHC2ENDO 06:30
PROVIDERS: ATTEND Surgery Plastic and Reconstructive Surgery
DX: Z12.11 Encounter for screening for malignant neoplasm of colon (principal); D12.3 Benign neoplasm of transverse colon; K21.00 Gastro-esophageal reflux disease with esophagitis, without bleeding; K57.30 Diverticulosis of large intestine without perforation or abscess without bleeding; K64.1 Second degree hemorrhoids; I11.0 Hypertensive heart disease with heart failure; E78.5 Hyperlipidemia, unspecified; I25.2 Old myocardial infarction; E11.9 Type 2 diabetes mellitus without complications; J44.9 Chronic obstructive pulmonary disease, unspecified; J45.909 Unspecified asthma, uncomplicated; Z86.010 Personal history of colon polyps; Z79.83 Long term (current) use of bisphosphonates; Z79.84 Long term (current) use of oral hypoglycemic drugs; Z79.51 Long term (current) use of inhaled steroids; E03.9 Hypothyroidism, unspecified; Z88.3 Allergy status to other anti-infective agents; Z88.6 Allergy status to analgesic agent; Z79.890 Hormone replacement therapy; Z79.899 Other long term (current) drug therapy
CPT/HCPCS: 88305; 80048; 45385; 43249; J2704; J2001; C1726

== ENCOUNTER 2023-01-17 14:20 | Inpatient (IN) | payer MEDICARE, BC ==
--- NOTE | 2023-01-17 15:08 | ED ---
General Adult HPI - General Chief complaint: Weakness Stated complaint: Weakness,Vomiting Time Seen by Provider: 01/17/23 14:37 Source: patient Mode of arrival: wheelchair Limitations: no limitations - History of Present Illness Initial comments: 77-year-old female with a past medical history significant for hypertension and end-stage renal disease on hemodialysis (M-W-F) presenting to the ED with a chief complaint of generalized fatigue. She states for the past week and a half has been generally fatigued, has had congestion, cough, nausea, and diarrhea. No chest pain or shortness of breath. No urinary symptoms. States that she is so weak that she had difficulties getting out of bed this morning which patient reports is not usual for her. No other complaints. - Related Data Home Medications Medication Instructions Recorded Confirmed Furosemide [Lasix] 20 mg PO BID 03/18/19 12/12/22 Levothyroxine Sodium [Synthroid] 112 mcg PO AC-BRKFST 03/18/19 12/12/22 Rosuvastatin Calcium [Crestor] 10 mg PO HS 03/18/19 12/12/22 Calcium Acetate 1,334 mg PO AC-TID 12/22/19 12/12/22 Metoprolol Tartrate [Lopressor] 25 mg PO DAILY 12/22/19 12/12/22 amLODIPine [Norvasc] 10 mg PO DAILY 08/02/20 12/12/22 oxyCODONE-APAP 10-325MG [Percocet 1 tab PO TID PRN 02/18/22 12/12/22 10-325 mg] Albuterol Inhaler [Ventolin Hfa 2 puff INHALATION RT-QID PRN 06/15/22 12/12/22 Inhaler] Albuterol Nebulized [Ventolin 2.5 mg INHALATION RT-QID PRN 06/15/22 12/12/22 Nebulized] Vit B Comp No.3/Folic/C/Biotin 1 each PO DAILY 12/12/22 12/12/22 [Rosy-Karla Rx Tablet] Previous Rx's Medication Instructions Recorded Ipratropium-Albuterol Nebulize 3 ml INHALATION TID #90 each 07/27/22 [Duoneb 0.5 mg-3 mg/3 ml Soln] Allergies Allergy/AdvReac Type Severity Reaction Status Date / Time cefuroxime Allergy Rash/Hives Verified 01/17/23 14:29 naproxen [From Naprosyn] Allergy Dyspnea Verified 12/12/22 11:10 blood thinner Allergy "brain Uncoded 12/12/22 11:10 bleed" Review of Systems ROS Statement: Those systems with pertinent positive or pertinent negative responses have been documented in the HPI. ROS Other: All systems not noted in ROS Statement are negative. Past Medical History Past Medical History: Asthma, Cancer, COPD, Diabetes Mellitus, Dialysis, Hyperlipidemia, Hypertension, Myocardial Infarction (CT), Osteoarthritis (OA), Pneumonia, Renal Disease, Thyroid Disorder Additional Past Medical History / Comment(s): Hx Uterine cancer 25 yrs ago, hemodialysis Mon, Sun and Sun, varicose veins., "mild heart attack"" "brain bleed twice" chronic diarrhea, hx "14 polyps", "chronic back pain", anemia, current edema kashif feet, diet control diabetic Last Myocardial Infarction Date:: unknown History of Any Multi-Drug Resistant Organisms: None Reported Past Surgical History: Appendectomy, Bariatric Surgery, Cholecystectomy, Hysterectomy, Joint Replacement, Tonsillectomy Additional Past Surgical History / Comment(s): gastric bypass, surgery after fall -fx rt leg and foot, kashif knee replacement, kashif cataracts, surgery x 2 or "brain bleed", fistula for dialysis, COLONOSCOPY, Past Anesthesia/Blood Transfusion Reactions: Family History of Problems w/ Anest hesia Additional Past Anesthesia/Blood Transfusion Reaction / Comment(s): MOTHER PONV Past Psychological History: No Psychological Hx Reported Smoking Status: Former smoker - Past Family History Mother Family Medical History: Cancer Father Family Medical History: Diabetes Mellitus, Hypertension Sister(s) Family Medical History: Cancer General Exam Limitations: no limitations General appearance: alert, in no apparent distress Neck exam: Present: normal inspection Respiratory exam: Present: normal lung sounds bilaterally Cardiovascular Exam: Present: regular rate, normal rhythm GI/Abdominal exam: Present: soft Extremities exam: Present: other (2+ pitting edema bilaterally. Some erythema of bilateral lower legs, non-circumfrential, non-tender, not significantly warm. ) Neurological exam: Present: alert, oriented X3 Course Vital Signs 01/17/23 01/17/23 01/17/23 14:26 15:03 16:07 Temperature 97.9 F Pulse Rate 69 63 73 Respiratory 18 23 18 Rate Blood Pressure 77/46 91/56 110/45 O2 Sat by Pulse 98 94 L 96 Oximetry Medical Decision Making - Medical Decision Making Was pt. sent in by a medical professional or institution (, [facility], [facility], urgent care, hospital, or halfway...) When possible be specific @ -No Did you speak to anyone other than the patient for history (EMS, parent, family, police, friend...)? What history was obtained from this source @ -No Did you review nursing and triage notes (agree or disagree)? Why? @ -I reviewed and agree with nursing and triage notes Were old charts reviewed (outside hosp., previous admission, EMS record, old EKG, old radiological studies, urgent care reports/EKG's, halfway records)? Report findings @ -No old charts were reviewed Differential Diagnosis (chest pain, altered mental status, abdominal pain women, abdominal pain men, vaginal bleeding, weakness, fever, dyspnea, syncope, headache, dizziness, GI bleed, back pain, seizure, CVA, palpatations, mental health, musculoskeletal)? @ -Differential Weakness: Hypoglycemia, shock, sepsis, hyponatremia, anemia, infection, CT, ETOH, adverse medicine reaction, overdose, stroke, this is not meant to be an all-inclusive list. EKG interpreted by me (3pts min.). @ -As above X-rays interpreted by me (1pt min.). @ -Chest x-ray interpreted by Me showing no evidence of pneumonia or other acute finding. CT interpreted by me (1pt min.). @ -None done U/S interpreted by me (1pt. min.). @ -None done What testing was considered but not performed or refused? (CT, X-rays, U/S, labs)? Why? @ -None What meds were considered but not given or refused? Why? @ -None Did you discuss the management of the patient with other professionals (professionals i.e. , [facility], [employer], lab, RT, psych nurse, hospital social worker, snaker, teacher, fare enforcement officer, immigration case manager)? Give summary @ -Case discussed with [facility] who accepts admission Was smoking cessation discussed for >3mins.? @ -No Was critical care preformed (if so, how long)? @ -No Were there social determinants of health that impacted care today? How? (Homelessness, low income, unemployed, alcoholism, drug addiction, transportation, low edu. Level, literacy, decrease access to med. care, [facility], rehab)? @ -No Was there de-escalation of care discussed even if they declined (Discuss DNR or withdrawal of care, Hospice)? DNR status @ -No What co-morbidities impacted this encounter? (DM, HTN, Smoking, COPD, CAD, Cancer, CVA, ARF, Chemo, Hep., AIDS, mental health diagnosis, sleep apnea, morbid obesity)? @ -ESRD Was patient admitted / discharged? Hospital course, mention meds given and route, prescriptions, significant lab abnormalities, going to OR and other p ertinent info. @ -Admission 77-year-old female presenting to the ED with complaints of upper respiratory symptoms, generalized weakness, nausea vomiting diarrhea for the past week and a half. Laboratory studies reviewed. CBC demonstrates anemia at 9.8. Chemistry panel demonstrates hypokalemia at 3. He went and creatinine elevated at 27 and 3.78 however improved from last. Troponin 0.015. BNP 4360. Serology panel shows patient positive for COVID. Going home as patient reports that she is so weak she barely made it to dialysis today. Therefore, patient will be admitted to observation with consult to nephrology. Undiagnosed new problem with uncertain prognosis? @ -No Drug Therapy requiring intensive monitoring for toxicity (Heparin, Nitro, Insulin, Cardizem)? @ -No Were any procedures done? @ -No Diagnosis/symptom? @ -COVID, generalized weakness Acute, or Chronic, or Acute on Chronic? @ -Acute Uncomplicated (without systemic symptoms) or Complicated (systemic symptoms)? @ -Uncomplicated Side effects of treatment? @ -No Exacerbation, Progression, or Severe Exacerbation? @ -No Poses a threat to life or bodily function? How? (Chest pain, USA, CT, pneumonia, PE, COPD, DKA, ARF, appy, cholecystitis, CVA, Diverticulitis, Homicidal, Suicida l, threat to staff... and all critical care pts) @ -No - Lab Data Result diagrams: 01/17/23 15:11 01/17/23 15:11 Lab Results 01/17/23 01/17/23 01/17/23 Range/Units 15:11 15:11 15:11 WBC 4.2 (3.8-10.6) k/uL RBC 2.95 L (3.80-5.40) m/uL Hgb 9.8 L (11.4-16.0) gm/dL Hct 29.6 L (34.0-46.0) % MCV 100.4 H (80.0-100.0) fL MCH 33.3 (25.0-35.0) pg MCHC 33.2 (31.0-37.0) g/dL RDW 14.2 (11.5-15.5) % Plt Count 194 (150-450) k/uL MPV 8.2 Neutrophils % 62 % Lymphocytes % 25 % Monocytes % 7 % Eosinophils % 3 % Basophils % 0 % Neutrophils # 2.6 (1.3-7.7) k/uL Lymphocytes # 1.0 (1.0-4.8) k/uL Monocytes # 0.3 (0-1.0) k/uL Eosinophils # 0.1 (0-0.7) k/uL Basophils # 0.0 (0-0.2) k/uL Macrocytosis Slight PT 9.8 L (10.0-12.5) sec INR 0.9 (<1.2) APTT 22.3 (22.0-30.0) sec Sodium 135 L (137-145) mmol/L Potassium 3.0 L (3.5-5.1) mmol/L Chloride 94 L (98-107) mmol/L Carbon Dioxide 26 (22-30) mmol/L Anion Gap 15 mmol/L BUN 27 H (7-17) mg/dL Creatinine 3.78 H (0.52-1.04) mg/dL Est GFR (CKD-EPI)AfAm 13 (>60 ml/min/1.73 sqM) Est GFR (CKD-EPI)NonAf 11 (>60 ml/min/1.73 sqM) Glucose 165 H (74-99) mg/dL Calcium 8.5 (8.4-10.2) mg/dL Total Bilirubin 0.4 (0.2-1.3) mg/dL AST 38 H (14-36) U/L ALT 26 (4-34) U/L Alkaline Phosphatase 194 H (38-126) U/L Troponin I (0.000-0.034) ng/mL NT-Pro-B Natriuret Pep 4360 pg/mL Total Protein 6.3 (6.3-8.2) g/dL Albumin 3.5 (3.5-5.0) g/dL Influenza Type A (PCR) (Not Detectd) Influenza Type B (PCR) (Not Detectd) RSV (PCR) (Not Detectd) SARS-CoV-2 (PCR) (Not Detectd) 01/17/23 01/17/23 Range/Units 15:11 15:14 WBC (3.8-10.6) k/uL RBC (3.80-5.40) m/uL Hgb (11.4-16.0) gm/dL Hct (34.0-46.0) % MCV (80.0-100.0) fL MCH (25.0-35.0) pg MCHC (31.0-37.0) g/dL RDW (11.5-15.5) % Plt Count (150-450) k/uL MPV Neutrophils % % Lymphocytes % % Monocytes % % Eosinophils % % Basophils % % Neutrophils # (1.3-7.7) k/uL Lymphocytes # (1.0-4.8) k/uL Monocytes # (0-1.0) k/uL Eosinophils # (0-0.7) k/uL Basophils # (0-0.2) k/uL Macrocytosis PT (10.0-12.5) sec INR (<1.2) APTT (22.0-30.0) sec Sodium (137-145) mmol/L Potassium (3.5-5.1) mmol/L Chloride (98-107) mmol/L Carbon Dioxide (22-30) mmol/L Anion Gap mmol/L BUN (7-17) mg/dL Creatinine (0.52-1.04) mg/dL Est GFR (CKD-EPI)AfAm (>60 ml/min/1.73 sqM) Est GFR (CKD-EPI)NonAf (>60 ml/min/1.73 sqM) Glucose (74-99) mg/dL Calcium (8.4-10.2) mg/dL Total Bilirubin (0.2-1.3) mg/dL AST (14-36) U/L ALT (4-34) U/L Alkaline Phosphatase (38-126) U/L Troponin I 0.015 (0.000-0.034) ng/mL NT-Pro-B Natriuret Pep pg/mL Total Protein (6.3-8.2) g/dL Albumin (3.5-5.0) g/dL Influenza Type A (PCR) Not Detected (Not Detectd) Influenza Type B (PCR) Not Detected (Not Detectd) RSV (PCR) Not Detected (Not Detectd) SARS-CoV-2 (PCR) Detected A (Not Detectd) - EKG Data EKG Comments: EKG shows a sinus rhythm at 59 beats for minute with nonspecific changes. QRS 97, QT/QTc 422/421. Disposition Clinical Impression: COVID, Generalized weakness Disposition: ADMITTED IP TO THIS HOSP Condition: Good Referrals: Gautam Rizvi DO [Primary Care Provider] - 1-2 days Time of Disposition: 16:45
[2023-01-17] MEDS ORDERED: SODIUM CHLORIDE 0.9% 1,000 ML IV STA (15:12)
[2023-01-17] MEDS ORDERED: SODIUM CHLORIDE 0.9% 500 ML 500 ML IV STA (15:13)
[2023-01-17 15:23] LABS: Basophils % (A) 0 %; Eosinophils # (A) 0.1 k/uL (0-0.7); Eosinophils % (A) 3 %; HCT 29.6 % (34.0-46.0); HGB 9.8 gm/dL (11.4-16.0); Lymphocytes % (A) 25 %; MCH 33.3 pg (25.0-35.0); MCHC 33.2 g/dL (31.0-37.0); MCV 100.4 fL (80.0-100.0); Macrocytosis Slight; Mean Platelet Volume 8.2; Monocytes # (A) 0.3 k/uL (0-1.0); Monocytes % (A) 7 %; Neutrophils # (A) 2.6 k/uL (1.3-7.7); Neutrophils % (A) 62 %; Platelet Count 194 k/uL (150-450); RBC 2.95 m/uL (3.80-5.40); RDW 14.2 % (11.5-15.5); WBC 4.2 k/uL (3.8-10.6)
[2023-01-17 15:38] LABS: ALT 26 U/L (4-34); AST 38 U/L (14-36); African American GFR (CKD) 13 (>60 ml/min/1.73 sqM); Albumin 3.5 g/dL (3.5-5.0); Alkaline Phosphatase 194 U/L (38-126); Anion Gap 15 mmol/L; Blood Urea Nitrogen 27 mg/dL (7-17); Calcium 8.5 mg/dL (8.4-10.2); Carbon Dioxide 26 mmol/L (22-30); Chloride 94 mmol/L (98-107); Glucose 165 mg/dL (74-99); Non-African American GFR(CKD) 11 (>60 ml/min/1.73 sqM); Sodium 135 mmol/L (137-145); Total Bilirubin 0.4 mg/dL (0.2-1.3); Total Protein 6.3 g/dL (6.3-8.2)
--- NOTE | 2023-01-17 15:38 | XR ---
EXAMINATION TYPE: XR chest 2V DATE OF EXAM: 01/17/2023 COMPARISON: 07/24/2022 TECHNIQUE: PA and lateral views submitted. HISTORY: Cough FINDINGS: The lungs are clear and there is no pneumothorax, pleural effusion, or focal pneumonia. Heart size normal and no overt failure. Osseous structures demonstrate hypertrophic and degenerative changes of the spine. Elevated right hemidiaphragm can occasionally be associated with phrenic nerve paresis. Pr ominence of the right paratracheal stripe likely related to ectatic vasculature. Mild atherosclerotic change aorta. Exam limited assessment of the hilum due to reduced inspiration and slight rotation. IMPRESSION: 1. No acute process.
[2023-01-17 15:45] LABS: NT-Pro-B-Type Natriuretic Pept 4360 pg/mL
[2023-01-17 15:53] LABS: INR 0.9 (<1.2); Partial Thromboplastin Time 22.3 sec (22.0-30.0); Prothrombin Time 9.8 sec (10.0-12.5)
[2023-01-17] MEDS ORDERED: POTASSIUM CHLORIDE ER 20 MEQ TAB.ER PO STA ×2 (16:55→17:05)
[2023-01-17] MEDS ORDERED: NALOXONE 0.4 MG/ML 1 ML VIAL IV PRN (17:07)
[2023-01-17] MEDS: ZINC SULFATE 220 MG CAP PO SCH (17:48)
[2023-01-17] MEDS: ASCORBIC ACID 500 MG TAB PO SCH (17:48)
[2023-01-17] MEDS: HYDROmorphone 1 MG/ML 1 ML SYRINGE IVP PRN ×2 (19:56→23:34)
[2023-01-18] MEDS: HYDROmorphone 1 MG/ML 1 ML SYRINGE IVP PRN (04:18)
[2023-01-18] MEDS ORDERED: SYMBICORT 160-4.5 MCG INHALER INHALATION PRN (05:06)
[2023-01-18] MEDS ORDERED: ALBUTEROL HFA INHALER INHALATION PRN (08:00)
[2023-01-18] MEDS: lisinopriL 20 MG TAB PO SCH (08:25)
[2023-01-18] MEDS: ASCORBIC ACID 500 MG TAB PO SCH (08:25)
[2023-01-18] MEDS: CALCIUM ACETATE 667 MG TAB PO SCH ×3 (08:25→18:01)
[2023-01-18] MEDS: LEVOTHYROXINE 112 MCG TAB PO SCH (08:25)
[2023-01-18] MEDS: ZINC SULFATE 220 MG CAP PO SCH (08:25)
[2023-01-18] MEDS: hydrALAZINE HCL 25 MG TAB PO SCH ×2 (08:25→20:16)
[2023-01-18] MEDS: METOPROLOL TARTRATE 50 MG TAB PO SCH ×2 (08:26→20:15)
[2023-01-18] MEDS: oxyCODONE-APAP 10-325MG 1 EACH TAB PO PRN ×3 (08:38→23:15)
[2023-01-18 08:49] LABS: Basophils % (A) 0 %; Eosinophils # (A) 0.2 k/uL (0-0.7); Eosinophils % (A) 4 %; HCT 31.3 % (34.0-46.0); HGB 10.3 gm/dL (11.4-16.0); Hypochromasia Slight; Lymphocytes % (A) 22 %; MCH 33.8 pg (25.0-35.0); MCHC 32.8 g/dL (31.0-37.0); MCV 102.9 fL (80.0-100.0); Macrocytosis Slight; Mean Platelet Volume 7.6; Monocytes # (A) 0.3 k/uL (0-1.0); Monocytes % (A) 6 %; Neutrophils % (A) 65 %; Platelet Count 202 k/uL (150-450); RBC 3.05 m/uL (3.80-5.40); RDW 14.2 % (11.5-15.5); WBC 4.7 k/uL (3.8-10.6)
[2023-01-18] MEDS ORDERED: FUROSEMIDE 20 MG TAB PO SCH (09:00)
[2023-01-18] MEDS ORDERED: amLODIPine 10 MG TAB PO SCH (09:00)
[2023-01-18 09:04] LABS: African American GFR (CKD) 10 (>60 ml/min/1.73 sqM); Anion Gap 14 mmol/L; Blood Urea Nitrogen 35 mg/dL (7-17); Calcium 8.6 mg/dL (8.4-10.2); Carbon Dioxide 26 mmol/L (22-30); Chloride 94 mmol/L (98-107); Glucose 133 mg/dL (74-99); Magnesium 1.9 mg/dL (1.6-2.3); Non-African American GFR(CKD) 9 (>60 ml/min/1.73 sqM); Potassium 3.8 mmol/L (3.5-5.1); Sodium 134 mmol/L (137-145)
[2023-01-18] MEDS ORDERED: ACETAMINOPHEN TAB 325 MG TAB PO PRN (09:17)
[2023-01-18] MEDS: FOLIC ACID-VIT B COMPLEX-VIT C 1 CAP PO SCH (09:43)
[2023-01-18] MEDS: ONDANSETRON 4 MG/2 ML VIAL IVP PRN ×2 (12:18→20:16)
--- NOTE | 2023-01-18 12:34 | P.NPCON ---
History of Present Illness - Reason for Consult end stage renal disease - History of Present Illness Patient is a 77-year-old female with end-stage renal disease on hemodialysis on a Sunday schedule. Patient is admitted to the hospital with complaints of increased weakness. She has had's some cough. No fever. Patient tested positive for COVID-19. No complaints of chest pain shortness of breath nausea or vomiting. Admits to decreased oral intake recently. Review of Systems As per HPI Past Medical History Past Medical History: Asthma, Cancer, COPD, Dialysis, Hyperlipidemia, Hypertension, Myocardial Infarction (MA), Osteoarthritis (OA), Pneumonia, Renal Disease, Thyroid Disorder Additional Past Medical History / Comment(s): Hx Uterine cancer 25 yrs ago, hemodialysis Sun, Sun and Sun, varicose veins., "mild heart attack"" "brain bleed twice" chronic diarrhea, hx "14 polyps", "chronic back pain", anemia, current edema kashif feet, diet control diabetic Last Myocardial Infarction Date:: unknown History of Any Multi-Drug Resistant Organisms: None Reported Past Surgical History: Appendectomy, Bariatric Surgery, Cholecystectomy, Hysterectomy, Joint Replacement, Tonsillectomy Additional Past Surgical History / Comment(s): gastric bypass, surgery after fall -fx rt leg and foot, kashif knee replacement, kashif cataracts, surgery x 2 or "brain bleed", fistula for dialysis, COLONOSCOPY, Past Anesthesia/Blood Transfusion Reactions: Family History of Problems w/ Anesthesia Additional Past Anesthesia/Blood Transfusion Reaction / Comment(s): MOTHER PONV Past Psychological History: No Psychological Hx Reported Smoking Status: Former smoker Past Alcohol Use History: None Reported Additional Past Alcohol Use History / Comment(s): Quit smoking 30+ yrs ago. Past Drug Use History: None Reported - Past Family History Mother Family Medical History: Cancer Father Family Medical History: Diabetes Mellitus, Hypertension Sister(s) Family Medical History: Cancer Medications and Allergies Home Medications Medication Instructions Recorded Confirmed Type Furosemide [Lasix] 20 mg PO BID 03/18/19 01/17/23 History Levothyroxine Sodium [Synthroid] 112 mcg PO AC-BRKFST 03/18/19 01/17/23 History Rosuvastatin Calcium [Crestor] 10 mg PO HS 03/18/19 01/17/23 History Calcium Acetate 1,334 mg PO AC-TID 12/22/19 01/17/23 History Metoprolol Tartrate [Lopressor] 50 mg PO BID 12/22/19 01/17/23 History amLODIPine [Norvasc] 10 mg PO DAILY 08/02/20 01/17/23 History oxyCODONE-APAP 10-325MG [Percocet 1 tab PO TID PRN 02/18/22 01/17/23 History 10-325 mg] Albuterol Inhaler [Ventolin Hfa 2 puff INHALATION RT-QID PRN 06/15/22 01/17/23 History Inhaler] Albuterol Nebulized [Ventolin 2.5 mg INHALATION RT-QID PRN 06/15/22 01/17/23 History Nebulized] Vit B Comp No.3/Folic/C/Biotin 1 tab PO DAILY 12/12/22 01/17/23 History [Rosy-Karla Rx Tablet] Budesonide/Formoterol Fumarate 2 puff INHALATION RT-BID PRN 01/17/23 01/17/23 History [Symbicort 160-4.5 Mcg Inhaler] Ipratropium Nebulized [Atrovent 0.5 mg INHALATION RT-TID PRN 01/17/23 01/17/23 History Nebulized 0.2 MG/ML] hydrALAZINE HCL [Apresoline] 25 mg PO BID 01/17/23 01/17/23 History lisinopriL 40 mg PO DAILY 01/17/23 01/17/23 History Allergies Allergy/AdvReac Type Severity Reaction Status Date / Time cefuroxime Allergy Rash/Hives Verified 01/17/23 17:35 naproxen [From Naprosyn] Allergy Dyspnea Verified 01/17/23 17:35 blood thinner Allergy "brain Uncoded 01/17/23 17:35 bleed" Physical Exam Vitals: Vital Signs Temp Pulse Pulse Resp BP BP Pulse Ox 01/18/23 08:25 19 01/18/23 07:34 97.5 F L 70 19 109/67 98 01/18/23 04:17 71 18 116/61 97 01/17/23 22:50 97.5 F L 61 100/58 97 01/17/23 21:51 74 18 108/51 97 01/17/23 19:25 68 18 102/40 95 01/17/23 16:07 73 18 110/45 96 01/17/23 15:03 63 23 91/56 94 L 01/17/23 14:26 97.9 F 69 18 77/46 98 Intake and Output 01/17/23 01/18/23 01/18/23 22:59 06:59 14:59 Other: # Voids 3 Weight 102.058 kg Patient is awake, comfortable, no acute distress Examination of the heart S1 and S2 Examination of the lungs bilateral breath sounds are heard Abdomen is soft nontender Examination of lower extremity shows 2+ edema B2B APPOINTMENT SETTER exam grossly intact Results - Lab Results Most recent lab results Calcium 8.6 mg/dL (8.4-10.2) 01/18/23 08:14 Magnesium 1.9 mg/dL (1.6-2.3) 01/18/23 08:14 01/18/23 08:14 01/18/23 08:14 Assessment and Plan Assessment: 1. End-stage renal disease on hemodialysis on a Sunday schedule 2. Covid infection with chest x-ray showing no evidence of acute process. Patient is maintained on room air. Most significant complaint is fatigue. 3. CK D mineral bone disorder 4. Hypertension with CK D stage V. Blood pressure is currently low Plan: Hemodialysis in a.m. Add parameters for antihypertensive medications as blood pressure is quite low. Hold amlodipine for now Continue with [facility] Thank you for the consultation. We will continue to follow the patient with you during her hospitalization.
--- NOTE | 2023-01-18 14:09 | P.HPIM ---
History of Present Illness H&P Date: 01/18/23 Chief Complaint: Fatigue, weakness * 77-year-old patient with past medical history significant for end-stage renal disease on hemodialysis, history of anemia from chronic kidney disease, hyperlipidemia, hypertension, osteoarthritis, obesity, presents to the emergency department with complains of generalized weakness, fatigue. Patient states she has not been feeling well for the last 1 week with generalized weakness, cough, congestion, nausea and diarrhea. Patient stated that she had severe limitation with activity of daily living secondary to profound weakness. * Workup initiated in ER including serum chemistry which showed sodium of 135 potassium of 3 chloride of 94 BU and 27 creatinine 3.78 lactate of 4.5 AST 38 AST 26 troponin within normal limits * CBC obtained showed WBC 4.2 hemoglobin 9.8 hematocrit 29 platelet count 194 * Initial lactate obtained 4.5 follow-up lactate 2.2 and 1.6 * While in ER patient was given 2 L of fluid bolus followed by potassium suppl ementation, patient was admitted to medical floor for management of profound weakness from Covid 19 with consultations from nephrology for maintenance of hemodialysis * Patient states she went to an urgent care a few days ago and was given cefuroxime for lower extremity cellulitis, on evaluation 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 patient had itching and rash from sulfa drugs ALLERGY list updated REVIEW OF SYSTEMS: Generalized weakness, nausea, diarrhea, fatigue, cough CONSTITUTIONAL: No fever, no malaise, no fatigue. HEENT: No recent visual problems or hearing problems. Denied any sore throat. CARDIOVASCULAR: No chest pain, orthopnea, PND, no palpitations, no syncope. PULMONARY: Generalized weakness, nausea, diarrhea, fatigue, cough GASTROINTESTINAL: Generalized weakness, nausea, diarrhea, fatigue, cough NEUROLOGICAL: No headaches, no weakness, no numbness. HEMATOLOGICAL: Denies any bleeding or petechiae. GENITOURINARY: Denies any burning micturition, frequency, or urgency. MUSCULOSKELETAL/RHEUMATOLOGICAL: Denies any joint pain, swelling, or any muscle pain. ENDOCRINE: Denies any polyuria or polydipsia. The rest of the 14-point review of systems is negative. PHYSICAL EXAMINATION: GENERAL: The patient is alert and oriented x3, ill appearance HEENT: Pupils are round and equally reacting to light. EOMI. CARDIOVASCULAR: S1 and S2 present. No murmurs, rubs, or gallops. PULMONARY: Chest is clear to auscultation, no wheezing or crackles. ABDOMEN: Soft, nontender, nondistended, normoactive bowel sounds. No palpable organomegaly. MUSCULOSKELETAL: No joint swelling or deformity. EXTREMITIES: No cyanosis, clubbing, or pedal edema. NEUROLOGICAL: Gross neurological examination did not reveal any focal deficits. SKIN: Skin changes bilateral lower extremity from edema Past Medical History Past Medical History: Asthma, Cancer, COPD, Dialysis, Hyperlipidemia, Hypertension, Myocardial Infarction ([place]), Osteoarthritis (OA), Pneumonia, Renal Disease, Thyroid Disorder Additional Past Medical History / Comment(s): Hx Uterine cancer 25 yrs ago, hemodialysis Sun, Sun and Sun, varicose veins., "mild heart attack"" "brain bleed twice" chronic diarrhea, hx "14 polyps", "chronic back pain", anemia, current edema kashif feet, diet control diabetic Last Myocardial Infarction Date:: unknown History of Any Multi-Drug Resistant Organisms: None Reported Past Surgical History: Appendectomy, Bariatric Surgery, Cholecystectomy, Hysterectomy, Joint Replacement, Tonsillectomy Additional Past Surgical History / Comment(s): gastric bypass, surgery after fall -fx rt leg and foot, kashif knee replacement, kashif cataracts, surgery x 2 or "brain bleed", fistula for dialysis, COLONOSCOPY, Past Anesthesia/Blood Transfusion Reactions: Family History of Problems w/ Anesthesia Additional Past Anesthesia/Blood Transfusion Reaction / Comment(s): MOTHER PONV Past Psychological History: No Psychological Hx Reported Smoking Status: Former smoker Past Alcohol Use History: None Reported Additional Past Alcohol Use History / Comment(s): Quit smoking 30+ yrs ago. Past Drug Use History: None Reported - Past Family History Mother Family Medical History: Cancer Father Family Medical History: Diabetes Mellitus, Hypertension Sister(s) Family Medical History: Cancer Medications and Allergies Home Medications Medication Instructions Recorded Confirmed Type Furosemide [Lasix] 20 mg PO BID 03/18/19 01/17/23 History Levothyroxine Sodium [Synthroid] 112 mcg PO AC-BRKFST 03/18/19 01/17/23 History Rosuvastatin Calcium [Crestor] 10 mg PO HS 03/18/19 01/17/23 History Calcium Acetate 1,334 mg PO AC-TID 12/22/19 01/17/23 History Metoprolol Tartrate [Lopressor] 50 mg PO BID 12/22/19 01/17/23 History amLODIPine [Norvasc] 10 mg PO DAILY 08/02/20 01/17/23 History oxyCODONE-APAP 10-325MG [Percocet 1 tab PO TID PRN 02/18/22 01/17/23 History 10-325 mg] Albuterol Inhaler [Ventolin Hfa 2 puff INHALATION RT-QID PRN 06/15/22 01/17/23 History Inhaler] Albuterol Nebulized [Ventolin 2.5 mg INHALATION RT-QID PRN 06/15/22 01/17/23 History Nebulized] Vit B Comp No.3/Folic/C/Biotin 1 tab PO DAILY 12/12/22 01/17/23 History [Rosy-Karla Rx Tablet] Budesonide/Formoterol Fumarate 2 puff INHALATION RT-BID PRN 01/17/23 01/17/23 History [Symbicort 160-4.5 Mcg Inhaler] Ipratropium Nebulized [Atrovent 0.5 mg INHALATION RT-TID PRN 01/17/23 01/17/23 History Nebulized 0.2 MG/ML] hydrALAZINE HCL [Apresoline] 25 mg PO BID 01/17/23 01/17/23 History lisinopriL 40 mg PO DAILY 01/17/23 01/17/23 History Allergies Allergy/AdvReac Type Severity Reaction Status Date / Time cefuroxime Allergy Rash/Hives Verified 01/17/23 17:35 naproxen [From Naprosyn] Allergy Dyspnea Verified 01/17/23 17:35 blood thinner Allergy "brain Uncoded 01/17/23 17:35 bleed" Physical Exam Vitals: Vital Signs Temp Pulse Pulse Resp BP BP Pulse Ox 01/18/23 07:34 97.5 F L 70 19 109/67 98 01/18/23 04:17 71 18 116/61 97 01/17/23 22:50 97.5 F L 61 100/58 97 01/17/23 21:51 74 18 108/51 97 01/17/23 19:25 68 18 102/40 95 01/17/23 16:07 73 18 110/45 96 01/17/23 15:03 63 23 91/56 94 L 01/17/23 14:26 97.9 F 69 18 77/46 98 Intake and Output 01/17/23 01/18/23 01/18/23 22:59 06:59 14:59 Other: # Voids 3 Weight 102.058 kg Results CBC & Chem 7: 01/18/23 08:14 01/18/23 08:14 Labs: Abnormal Lab Results - Last 24 Hours (Table) 01/17/23 01/17/23 01/17/23 Range/Units 15:11 15:11 15:11 RBC 2.95 L (3.80-5.40) m/uL Hgb 9.8 L (11.4-16.0) gm/dL Hct 29.6 L (34.0-46.0) % MCV 100.4 H (80.0-100.0) fL PT 9.8 L (10.0-12.5) sec Sodium 135 L (137-145) mmol/L Potassium 3.0 L (3.5-5.1) mmol/L Chloride 94 L (98-107) mmol/L BUN 27 H (7-17) mg/dL Creatinine 3.78 H (0.52-1.04) mg/dL Glucose 165 H (74-99) mg/dL Plasma Lactic Acid Tulio (0.7-2.0) mmol/L AST 38 H (14-36) U/L Alkaline Phosphatase 194 H (38-126) U/L SARS-CoV-2 (PCR) (Not Detectd) 01/17/23 01/17/23 01/17/23 Range/Units 15:11 15:14 19:51 RBC (3.80-5.40) m/uL Hgb (11.4-16.0) gm/dL Hct (34.0-46.0) % MCV (80.0-100.0) fL PT (10.0-12.5) sec Sodium (137-145) mmol/L Potassium (3.5-5.1) mmol/L Chloride (98-107) mmol/L BUN (7-17) mg/dL Creatinine (0.52-1.04) mg/dL Glucose (74-99) mg/dL Plasma Lactic Acid Tulio 4.5 H* 3.2 H* (0.7-2.0) mmol/L AST (14-36) U/L Alkaline Phosphatase (38-126) U/L SARS-CoV-2 (PCR) Detected A (Not Detectd) 01/18/23 01/18/23 Range/Units 08:14 08:14 RBC 3.05 L (3.80-5.40) m/uL Hgb 10.3 L (11.4-16.0) gm/dL Hct 31.3 L (34.0-46.0) % MCV 102.9 H (80.0-100.0) fL PT (10.0-12.5) sec Sodium 134 L (137-145) mmol/L Potassium (3.5-5.1) mmol/L Chloride 94 L (98-107) mmol/L BUN 35 H (7-17) mg/dL Creatinine 4.61 H (0.52-1.04) mg/dL Glucose 133 H (74-99) mg/dL Plasma Lactic Acid Tulio (0.7-2.0) mmol/L AST (14-36) U/L Alkaline Phosphatase (38-126) U/L SARS-CoV-2 (PCR) (Not Detectd) Thrombosis Risk Factor Assmnt - Choose All That Apply Any of the Below Risk Factors Present?: Yes Each Factor Represents 1 point: Abnormal pulmonary function (COPD), Obesity (BMI >25) Each Risk Factor Represents 3 Points: Age 75 years or older Thrombosis Risk Factor Assessment Total Risk Factor Score: 5 Thrombosis Risk Factor Assessment Level: High Risk Assessment and Plan Assessment: Assessment and plan * Covid 19 infection with generalized fatigue and malaise/diarrhea * History of COPD * End-stage renal disease on hemodialysis * Anemia of chronic kidney disease * Lactic acidosis on admission secondary to dehydration * Hypokalemia on admission * History of hypertension * In regards to viral pneumonia from Covid 19, continue to follow-up on inflammation markers, continue to monitor for desaturation, will use dexamethasone if needed continue breathing treatments on Symbicort and albuterol * In regards to history of COPD continue patient on albuterol and Symbicort, monitor for desaturation * In regards to end-stage renal disease on hemodialysis nephrology consulted * In regards to lactic acidosis likely secondary to volume depletion, he should resuscitated with fluid, Lasix placed on hold, nephrology to monitor/manage fluids with dialysis * In regards to hyperkalemia patient given potassium supplementation * In regards to history of hypertension continue hydralazine, metoprolol, lisinopril * CODE STATUS is okay with CPR and no intubation Time with Patient: Greater than 30
[2023-01-18 16:09] LABS: Appearance,Urine Cloudy (Clear); Color,Urine Orange; Specific Gravity,Urine 1.025 (1.001-1.035)
[2023-01-18 16:10] LABS: Bilirubin,Urine 1+ (Negative); Blood,Urine Trace (Negative); Glucose,Urine (UA) Negative (Negative); Ketones,Urine 1+ (Negative); Nitrite,Urine Negative (Negative); Protein,Urine 1+ (Negative); Urobilinogen,Urine <2.0 mg/dL (<2.0)
[2023-01-18 16:11] LABS: Leukocyte Esterase,Urine Small (Negative)
[2023-01-18 16:17] LABS: Bacteria,Urine Rare /hpf; Mucus,Urine Rare /hpf; RBC,Urine 12 /hpf (0-5); Squamous Epithelial Cell,Urine 33 /hpf (0-4); WBC,Urine 112 /hpf (0-5)
[2023-01-18] MEDS: HEPARIN SODIUM,PORCINE 5,000 UNIT/ML 1 ML VIAL SQ SCH ×2 (18:01→23:15)
[2023-01-18] MEDS: ATORVASTATIN 20 MG TAB PO SCH (20:15)
--- NOTE | 2023-01-18 21:24 | P.CONS ---
History of Present Illness - Reason for Consult Consult date: 01/18/23 - History of Present Illness Patient is a 77-year-old female with a past medical history significant for COPD hypertension hyperlipidemia [place] osteoarthritis patient presenting to the hospital yesterday afternoon for evaluation of generalized fatigue patient symptom has been getting worse for the week before presentation to the hospital patient also have congestion cough nausea and diarrhea with worsening symptoms and the patient did have difficulty getting around patient presented to the hospital patient denies high-grade fever did have some chills denies any headache mild URI symptoms and also some chest congestion mild cough which is dry in nature denies any pleuritic chest pain nausea no vomiting no abd ominal pain with the symptoms patient has been evaluated on presentation to hospital patient was afebrile no fever have recorded subsequently patient was not hypoxic or need for supplemental oxygen patient did have white count of 4.2 BUN and creatinine has been elevated lactic acid was elevated liver enzymes are normal urine positive patient did tested positive for COVID did have a chest x- ray no acute process patient was admitted to hospital infectious he was consulted for further management Past Medical History Past Medical History: Asthma, Cancer, COPD, Dialysis, Hyperlipidemia, Hypertension, Myocardial Infarction ([place]), Osteoarthritis (OA), Pneumonia, Renal Disease, Thyroid Disorder Additional Past Medical History / Comment(s): Hx Uterine cancer 25 yrs ago, hemodialysis Sun, Sun and Sun, varicose veins., "mild heart attack"" "brain bleed twice" chronic diarrhea, hx "14 polyps", "chronic back pain", anemia, current edema kashif feet, diet control diabetic Last Myocardial Infarction Date:: unknown History of Any Multi-Drug Resistant Organisms: None Reported Past Surgical History: Appendectomy, Bariatric Surgery, Cholecystectomy, Hysterectomy, Joint Replacement, Tonsillectomy Additional Past Surgical History / Comment(s): gastric bypass, surgery after fall -fx rt leg and foot, kashif knee replacement, kashif cataracts, surgery x 2 or "brain bleed", fistula for dialysis, COLONOSCOPY, Past Anesthesia/Blood Transfusion Reactions: Family History of Problems w/ Anesthesia Additional Past Anesthesia/Blood Transfusion Reaction / Comm: MOTHER PONV Past Psychological History: No Psychological Hx Reported Smoking Status: Former smoker Past Alcohol Use History: None Reported Additional Past Alcohol Use History / Comment(s): Quit smoking 30+ yrs ago. Past Drug Use History: None Reported - Past Family History Mother Family Medical History: Cancer Father Family Medical History: Diabetes Mellitus, Hypertension Sister(s) Family Medical History: Cancer Medications and Allergies Home Medications Medication Instructions Recorded Confirmed Type Furosemide [Lasix] 20 mg PO BID 03/18/19 01/17/23 History Levothyroxine Sodium [Synthroid] 112 mcg PO AC-BRKFST 03/18/19 01/17/23 History Rosuvastatin Calcium [Crestor] 10 mg PO HS 03/18/19 01/17/23 History Calcium Acetate 1,334 mg PO AC-TID 12/22/19 01/17/23 History Metoprolol Tartrate [Lopressor] 50 mg PO BID 12/22/19 01/17/23 History amLODIPine [Norvasc] 10 mg PO DAILY 08/02/20 01/17/23 History oxyCODONE-APAP 10-325MG [Percocet 1 tab PO TID PRN 02/18/22 01/17/23 History 10-325 mg] Albuterol Inhaler [Ventolin Hfa 2 puff INHALATION RT-QID PRN 06/15/22 01/17/23 History Inhaler] Albuterol Nebulized [Ventolin 2.5 mg INHALATION RT-QID PRN 06/15/22 01/17/23 History Nebulized] Vit B Comp No.3/Folic/C/Biotin 1 tab PO DAILY 12/12/22 01/17/23 History [Rosy-Karla Rx Tablet] Budesonide/Formoterol Fumarate 2 puff INHALATION RT-BID PRN 01/17/23 01/17/23 History [Symbicort 160-4.5 Mcg Inhaler] Ipratropium Nebulized [Atrovent 0.5 mg INHALATION RT-TID PRN 01/17/23 01/17/23 History Nebulized 0.2 MG/ML] hydrALAZINE HCL [Apresoline] 25 mg PO BID 01/17/23 01/17/23 History lisinopriL 40 mg PO DAILY 01/17/23 01/17/23 History Allergies Allergy/AdvReac Type Severity Reaction Status Date / Time cefuroxime Allergy Rash/Hives Verified 01/17/23 17:35 naproxen [From Naprosyn] Allergy Dyspnea Verified 01/17/23 17:35 blood thinner Allergy "brain Uncoded 01/17/23 17:35 bleed" Physical Exam Vitals: Vital Signs Temp Pulse Pulse Resp BP BP Pulse Ox 01/18/23 07:34 97.5 F L 70 19 109/67 98 01/18/23 04:17 71 18 116/61 97 01/17/23 22:50 97.5 F L 61 100/58 97 01/17/23 21:51 74 18 108/51 97 01/17/23 19:25 68 18 102/40 95 01/17/23 16:07 73 18 110/45 96 01/17/23 15:03 63 23 91/56 94 L 01/17/23 14:26 97.9 F 69 18 77/46 98 Intake and Output 01/17/23 01/18/23 01/18/23 22:59 06:59 14:59 Other: # Voids 3 Weight 102.058 kg Results CBC & Chem 7: 01/18/23 08:14 01/18/23 08:14 Labs: Abnormal Lab Results - Last 24 Hours (Table) 01/17/23 01/17/23 01/17/23 Range/Units 15:11 15:11 15:11 RBC 2.95 L (3.80-5.40) m/uL Hgb 9.8 L (11.4-16.0) gm/dL Hct 29.6 L (34.0-46.0) % MCV 100.4 H (80.0-100.0) fL PT 9.8 L (10.0-12.5) sec Sodium 135 L (137-145) mmol/L Potassium 3.0 L (3.5-5.1) mmol/L Chloride 94 L (98-107) mmol/L BUN 27 H (7-17) mg/dL Creatinine 3.78 H (0.52-1.04) mg/dL Glucose 165 H (74-99) mg/dL Plasma Lactic Acid Tulio (0.7-2.0) mmol/L AST 38 H (14-36) U/L Alkaline Phosphatase 194 H (38-126) U/L SARS-CoV-2 (PCR) (Not Detectd) 01/17/23 01/17/23 01/17/23 Range/Units 15:11 15:14 19:51 RBC (3.80-5.40) m/uL Hgb (11.4-16.0) gm/dL Hct (34.0-46.0) % MCV (80.0-100.0) fL PT (10.0-12.5) sec Sodium (137-145) mmol/L Potassium (3.5-5.1) mmol/L Chloride (98-107) mmol/L BUN (7-17) mg/dL Creatinine (0.52-1.04) mg/dL Glucose (74-99) mg/dL Plasma Lactic Acid Tulio 4.5 H* 3.2 H* (0.7-2.0) mmol/L AST (14-36) U/L Alkaline Phosphatase (38-126) U/L SARS-CoV-2 (PCR) Detected A (Not Detectd) 01/18/23 01/18/23 Range/Units 08:14 08:14 RBC 3.05 L (3.80-5.40) m/uL Hgb 10.3 L (11.4-16.0) gm/dL Hct 31.3 L (34.0-46.0) % MCV 102.9 H (80.0-100.0) fL PT (10.0-12.5) sec Sodium 134 L (137-145) mmol/L Potassium (3.5-5.1) mmol/L Chloride 94 L (98-107) mmol/L BUN 35 H (7-17) mg/dL Creatinine 4.61 H (0.52-1.04) mg/dL Glucose 133 H (74-99) mg/dL Plasma Lactic Acid Tulio (0.7-2.0) mmol/L AST (14-36) U/L Alkaline Phosphatase (38-126) U/L SARS-CoV-2 (PCR) (Not Detectd) Assessment and Plan Plan: 1patient presented to hospital with generalized weakness no energy did have mild respiratory symptoms and has been diagnosed with acute COVID-19 infection however no evidence of pneumonia on the chest x-ray patient not hypoxic or need for supplemental oxygen treatment will be mostly supportive 2-patient to continue heparin zinc ascorbic acid no need for steroid or remdesivir 3-droplet isolation We will follow on clinical condition and cultures to further adjust medication if needed Thank you for this consultation we will follow the patient along with you Dictation was produced using [employer] software. please excuse any grammatical, word or spelling errors. Time with Patient: Greater than 30
[2023-01-19] MEDS: CALCIUM ACETATE 667 MG TAB PO SCH ×3 (06:21→17:06)
[2023-01-19] MEDS: LEVOTHYROXINE 112 MCG TAB PO SCH (06:22)
[2023-01-19] MEDS: oxyCODONE-APAP 10-325MG 1 EACH TAB PO PRN ×3 (07:27→23:31)
[2023-01-19] MEDS: FOLIC ACID-VIT B COMPLEX-VIT C 1 CAP PO SCH (09:22)
[2023-01-19] MEDS: ASCORBIC ACID 500 MG TAB PO SCH (09:22)
[2023-01-19] MEDS: ZINC SULFATE 220 MG CAP PO SCH (09:22)
[2023-01-19] MEDS: HEPARIN SODIUM,PORCINE 5,000 UNIT/ML 1 ML VIAL SQ SCH ×3 (09:22→23:31)
[2023-01-19] MEDS ORDERED: MIDODRINE 5 MG TAB PO STA (10:35)
[2023-01-19] MEDS: hydrALAZINE HCL 25 MG TAB PO SCH ×2 (11:28→20:36)
[2023-01-19] MEDS: lisinopriL 20 MG TAB PO SCH (11:28)
[2023-01-19] MEDS: METOPROLOL TARTRATE 50 MG TAB PO SCH ×2 (11:29→20:36)
[2023-01-19 11:32] LABS: Basophils # (A) 0.01 X 10*3/uL (0.00-0.10); Basophils % (A) 0.2 %; Eosinophils # (A) 0.25 X 10*3/uL (0.04-0.35); Eosinophils % (A) 5.1 %; HGB 9.7 g/dL (12.0-15.0); Lymphocytes % (A) 30.9 %; MCH 33.2 pg (27.0-32.0); MCHC 32.3 g/dL (32.0-37.0); MCV 102.7 FL (80.0-97.0); Mean Platelet Volume 10.5 FL (9.5-12.2); Monocytes # (A) 0.49 X 10*3/uL (0.20-1.00); Monocytes % (A) 10.1 %; NRBC Per 100 WBC 0 X 10*3/uL (0.00-0.01); Neutrophils # (A) 2.49 X 10*3/uL (1.80-7.70); Neutrophils % (A) 51.2 %; Platelet Count 190 X 10*3/uL (140-440); RBC 2.92 X 10*6/uL (4.10-5.20); RDW 14.2 % (11.5-14.5); WBC 4.86 X 10*3/uL (4.50-10.00)
[2023-01-19 11:36] LABS: ALT 20 U/L (8-44); AST 27 U/L (13-35); Albumin 3.2 g/dL (3.8-4.9); Albumin/Globulin Ratio 1.33 Ratio (1.60-3.17); Alkaline Phosphatase 194 U/L (41-126); BUN/Creat Ratio 8.17 Ratio (12.00-20.00); Blood Urea Nitrogen 47.4 mg/dL (9.0-27.0); Calcium 8.6 mg/dL (8.7-10.3); Carbon Dioxide 24.9 mmol/L (21.6-31.8); Chloride 94 mmol/L (96-109); Globulin 2.4 g/dL (1.6-3.3); Glucose 92 mg/dL (70-110); LDH 178 U/L (120-246); Magnesium 1.8 mg/dL (1.5-2.4); Potassium 4.5 mmol/L (3.5-5.5); Sodium 134 mmol/L (135-145); Total Bilirubin 0.3 mg/dL (0.3-1.2); Total Protein 5.6 g/dL (6.2-8.2)
--- NOTE | 2023-01-19 11:56 | P.PN ---
Subjective Progress Note Date: 01/19/23 * 77-year-old patient with past medical history significant for end-stage renal disease on hemodialysis, history of anemia from chronic kidney disease, hyperlipidemia, hypertension, osteoarthritis, obesity, presents to the emergency department with complains of generalized weakness, fatigue. Patient states she has not been feeling well for the last 1 week with generalized weakness, cough, congestion, nausea and diarrhea. Patient stated that she had severe limitation with activity of daily living secondary to profound weakness. * Workup initiated in ER including serum chemistry which showed sodium of 135 potassium of 3 chloride of 94 BU and 27 creatinine 3.78 lactate of 4.5 AST 38 AST 26 troponin within normal limits * CBC obtained showed WBC 4.2 hemoglobin 9.8 hematocrit 29 platelet count 194 * Initial lactate obtained 4.5 follow-up lactate 2.2 and 1.6 * While in ER patient was given 2 L of fluid bolus followed by potassium supplementation, patient was admitted to medical floor for management of profound weakness from Covid 19 with consultations from nephrology for maintenance of hemodialysis * Patient states she went to an urgent care a few days ago and was given cefuroxime for lower extremity cellulitis, on evaluation 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 patient had itching and rash from sulfa drugs ALLERGY list updated * 01/19/2023: Patient seen and evaluated bedside, patient does complain of cough with productive phlegm, remains on room air, plan for hemodialysis today, CRP within normal limits, sodium 134 magnesium 1.8 showed to CVA hemodialysis today he had CBC reviewed WBC within normal limits M 11 9.7 platelet count within normal limits REVIEW OF SYSTEMS: Generalized weakness, nausea, diarrhea, fatigue, cough CONSTITUTIONAL: No fever, no malaise, no fatigue. HEENT: No recent visual problems or hearing problems. Denied any sore throat. CARDIOVASCULAR: No chest pain, orthopnea, PND, no palpitations, no syncope. PULMONARY: Generalized weakness, nausea, diarrhea, fatigue, cough GASTROINTESTINAL: Generalized weakness, nausea, diarrhea, fatigue, cough NEUROLOGICAL: No headaches, no weakness, no numbness. HEMATOLOGICAL: Denies any bleeding or petechiae. GENITOURINARY: Denies any burning micturition, frequency, or urgency. MUSCULOSKELETAL/RHEUMATOLOGICAL: Denies any joint pain, swelling, or any muscle pain. ENDOCRINE: Denies any polyuria or polydipsia. The rest of the 14-point review of systems is negative. PHYSICAL EXAMINATION: GENERAL: The patient is alert and oriented x3, ill appearance HEENT: Pupils are round and equally reacting to light. EOMI. CARDIOVASCULAR: S1 and S2 present. No murmurs, rubs, or gallops. PULMONARY: Chest is clear to auscultation, no wheezing or crackles. ABDOMEN: Soft, nontender, nondistended, normoactive bowel sounds. No palpable organomegaly. MUSCULOSKELETAL: No joint swelling or deformity. EXTREMITIES: No cyanosis, clubbing, or pedal edema. NEUROLOGICAL: Gross neurological examination did not reveal any focal deficits. SKIN: Skin changes bilateral lower extremity from edema Objective - Vital Signs Vital signs: Vital Signs Temp 98.1 F 01/19/23 07:13 Pulse 72 01/19/23 07:13 Resp 19 01/19/23 07:13 BP 103/58 01/19/23 07:13 Pulse Ox 95 01/19/23 07:13 FiO2 Intake & Output 01/18/23 01/19/23 01/19/23 18:59 06:59 18:59 Intake Total 800 Balance 800 Intake: Oral 800 Other: # Voids 3 3 - Labs CBC & Chem 7: 01/19/23 06:37 01/19/23 06:37 Labs: Abnormal Lab Results - Last 24 Hours (Table) 01/17/23 01/19/23 01/19/23 Range/Units 15:11 06:37 06:37 RBC 2.92 L (4.10-5.20) X 10*6/uL Hgb 9.7 L (12.0-15.0) g/dL Hct 30.0 L (37.2-46.3) % MCV 102.7 H (80.0-97.0) FL MCH 33.2 H (27.0-32.0) pg Immature Gran # 0.12 H (0.00-0.04) X 10*3/uL Sodium 134 L (135-145) mmol/L Chloride 94 L (96-109) mmol/L Anion Gap 15.10 H (4.00-12.00) mmol/L BUN 47.4 H (9.0-27.0) mg/dL Creatinine 5.8 H (0.6-1.5) mg/dL Est GFR (CKD-EPI) 7 L (>=60) BUN/Creatinine Ratio 8.17 L (12.00-20.00) Ratio Calcium 8.6 L (8.7-10.3) mg/dL Alkaline Phosphatase 194 H (41-126) U/L Total Protein 5.6 L (6.2-8.2) g/dL Albumin 3.2 L (3.8-4.9) g/dL Albumin/Globulin Ratio 1.33 L (1.60-3.17) Ratio Urine Appearance Cloudy H (Clear) Urine Protein 1+ H (Negative) Urine Ketones 1+ H (Negative) Urine Blood Trace H (Negative) Urine Bilirubin 1+ H (Negative) Ur Leukocyte Esterase Small H (Negative) Urine RBC 12 H (0-5) /hpf Urine WBC 112 H (0-5) /hpf Ur Squamous Epith Cells 33 H (0-4) /hpf Urine Bacteria Rare H (None) /hpf Urine Mucus Rare H (None) /hpf Assessment and Plan Assessment: Assessment and plan * Covid 19 infection with generalized fatigue and malaise/diarrhea * History of COPD with tracheobronchitis * End-stage renal disease on hemodialysis * Anemia of chronic kidney disease * Lactic acidosis on admission secondary to dehydration * Hypokalemia on admission * History of hypertension * In regards to viral pneumonia from Covid 19, continue to follow-up on inflammation markers, continue to monitor for desaturation, continue breathing treatments on Symbicort and albuterol, noted on azithromycin for tracheobronch itis * In regards to history of COPD continue patient on albuterol and Symbicort, monitor for desaturation * In regards to end-stage renal disease on hemodialysis nephrology consulted, dialysis scheduled for 01/19 * In regards to lactic acidosis likely secondary to volume depletion, he should resuscitated with fluid, Lasix placed on hold, nephrology to monitor/manage fluids with dialysis * In regards to hyperkalemia patient given potassium supplementation * In regards to history of hypertension continue hydralazine, metoprolol, lisinopril * CODE STATUS is okay with CPR and no intubation Time with Patient: Greater than 30
[2023-01-19] MEDS: AZITHROMYCIN 500 MG TAB PO SCH (12:20)
--- NOTE | 2023-01-19 12:43 | P.PN ---
Subjective Patient is seen for follow-up for end-stage renal disease. Admitted to the hospital with complaints of fatigue and tested positive for COVID-19. Patient is seen on hemodialysis. Blood pressure is low. She continues to complain of weakness. 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 - Labs CBC & Chem 7: 01/19/23 06:37 01/19/23 06:37 Labs: Abnormal Lab Results - Last 24 Hours (Table) 01/17/23 01/19/23 01/19/23 Range/Units 15:11 06:37 06:37 RBC 2.92 L (4.10-5.20) X 10*6/uL Hgb 9.7 L (12.0-15.0) g/dL Hct 30.0 L (37.2-46.3) % MCV 102.7 H (80.0-97.0) FL MCH 33.2 H (27.0-32.0) pg Immature Gran # 0.12 H (0.00-0.04) X 10*3/uL Sodium 134 L (135-145) mmol/L Chloride 94 L (96-109) mmol/L Anion Gap 15.10 H (4.00-12.00) mmol/L BUN 47.4 H (9.0-27.0) mg/dL Creatinine 5.8 H (0.6-1.5) mg/dL Est GFR (CKD-EPI) 7 L (>=60) BUN/Creatinine Ratio 8.17 L (12.00-20.00) Ratio Calcium 8.6 L (8.7-10.3) mg/dL Alkaline Phosphatase 194 H (41-126) U/L Total Protein 5.6 L (6.2-8.2) g/dL Albumin 3.2 L (3.8-4.9) g/dL Albumin/Globulin Ratio 1.33 L (1.60-3.17) Ratio Urine Appearance Cloudy H (Clear) Urine Protein 1+ H (Negative) Urine Ketones 1+ H (Negative) Urine Blood Trace H (Negative) Urine Bilirubin 1+ H (Negative) Ur Leukocyte Esterase Small H (Negative) Urine RBC 12 H (0-5) /hpf Urine WBC 112 H (0-5) /hpf Ur Squamous Epith Cells 33 H (0-4) /hpf Urine Bacteria Rare H (None) /hpf Urine Mucus Rare H (None) /hpf Assessment and Plan Assessment: 1. End-stage renal disease on hemodialysis on a Sunday schedule 2. Covid infection with chest x-ray showing no evidence of acute process. Patient is maintained on room air. Most significant complaint is fatigue. 3. CK D mineral bone disorder 4. Hypertension with CK D stage V. Blood pressure is currently low Plan: Hemodialysis today. Midodrine hemodialysis Add parameters for antihypertensive medications as blood pressure is quite low. Continue with PhosLo
[2023-01-19] MEDS: ATORVASTATIN 20 MG TAB PO SCH (20:39)
[2023-01-20] MEDS: LEVOTHYROXINE 112 MCG TAB PO SCH (06:35)
[2023-01-20] MEDS: CALCIUM ACETATE 667 MG TAB PO SCH ×3 (06:35→17:34)
[2023-01-20] MEDS: HEPARIN SODIUM,PORCINE 5,000 UNIT/ML 1 ML VIAL SQ SCH ×3 (08:27→20:46)
[2023-01-20] MEDS: lisinopriL 20 MG TAB PO SCH ×2 (08:27→20:44)
[2023-01-20] MEDS: FOLIC ACID-VIT B COMPLEX-VIT C 1 CAP PO SCH (08:27)
[2023-01-20] MEDS: ASCORBIC ACID 500 MG TAB PO SCH (08:27)
[2023-01-20] MEDS: ZINC SULFATE 220 MG CAP PO SCH (08:27)
[2023-01-20] MEDS: AZITHROMYCIN 500 MG TAB PO SCH (08:27)
[2023-01-20] MEDS: hydrALAZINE HCL 25 MG TAB PO SCH ×2 (08:28→20:44)
[2023-01-20] MEDS: METOPROLOL TARTRATE 50 MG TAB PO SCH ×2 (08:28→20:44)
[2023-01-20] MEDS: oxyCODONE-APAP 10-325MG 1 EACH TAB PO PRN ×2 (08:32→20:46)
[2023-01-20 08:44] LABS: Hepatitis B Surface AB- Quant 3.5 mIU/mL; Hepatitis B Surface Antigen Nonreactive
[2023-01-20 09:17] LABS: ALT 19 U/L (8-44); AST 25 U/L (13-35); Albumin 3.1 g/dL (3.8-4.9); Albumin/Globulin Ratio 1.41 Ratio (1.60-3.17); Alkaline Phosphatase 181 U/L (41-126); BUN/Creat Ratio 7.18 Ratio (12.00-20.00); Blood Urea Nitrogen 27.3 mg/dL (9.0-27.0); Calcium 8.4 mg/dL (8.7-10.3); Carbon Dioxide 26.4 mmol/L (21.6-31.8); Chloride 97 mmol/L (96-109); Globulin 2.2 g/dL (1.6-3.3); Glucose 88 mg/dL (70-110); LDH 147 U/L (120-246); Magnesium 1.8 mg/dL (1.5-2.4); Potassium 4.5 mmol/L (3.5-5.5); Sodium 135 mmol/L (135-145); Total Bilirubin 0.3 mg/dL (0.3-1.2); Total Protein 5.3 g/dL (6.2-8.2)
--- NOTE | 2023-01-20 09:42 | P.PN ---
Subjective Patient is seen in follow-up for end-stage renal disease. She is maintained on hemodialysis on Sunday schedule. Resting in bed. Denies chest pain or shortness of breath at this time. Most recent blood pressure 121/72 but was in the systolic 90s the prior 2 readings. Complains of a cough with yellowish phlegm. Vital signs are stable. General: No acute distress. HEENT: Head exam is unremarkable. LUNGS: No audible rhonchi or wheezes. HEART: Rate and Rhythm are regular. ABDOMEN: Nontender. EXTREMITITES: No edema. Objective - Vital Signs Vital signs: Vital Signs Temp 97.3 F L 01/20/23 07:17 Pulse 85 01/20/23 07:17 Resp 18 01/20/23 07:17 BP 121/72 01/20/23 07:17 Pulse Ox 99 01/20/23 07:17 FiO2 Intake & Output 01/19/23 01/20/23 01/20/23 18:59 06:59 18:59 Intake Total 400 Output Total 1700 Balance -1300 Intake: Hemodialysis 400 Output: Hemodialysis 1700 Other: # Voids 2 1 - Labs CBC & Chem 7: 01/19/23 06:37 01/20/23 06:21 Labs: Abnormal Lab Results - Last 24 Hours (Table) 01/19/23 01/19/23 01/20/23 Range/Units 06:37 06:37 06:21 RBC 2.92 L (4.10-5.20) X 10*6/uL Hgb 9.7 L (12.0-15.0) g/dL Hct 30.0 L (37.2-46.3) % MCV 102.7 H (80.0-97.0) FL MCH 33.2 H (27.0-32.0) pg Immature Gran # 0.12 H (0.00-0.04) X 10*3/uL Sodium 134 L (135-145) mmol/L Chloride 94 L (96-109) mmol/L Anion Gap 15.10 H (4.00-12.00) mmol/L BUN 47.4 H 27.3 H (9.0-27.0) mg/dL Creatinine 5.8 H 3.8 H (0.6-1.5) mg/dL Est GFR (CKD-EPI) 7 L 12 L (>=60) BUN/Creatinine Ratio 8.17 L 7.18 L (12.00-20.00) Ratio Calcium 8.6 L 8.4 L (8.7-10.3) mg/dL Alkaline Phosphatase 194 H 181 H (41-126) U/L Total Protein 5.6 L 5.3 L (6.2-8.2) g/dL Albumin 3.2 L 3.1 L (3.8-4.9) g/dL Albumin/Globulin Ratio 1.33 L 1.41 L (1.60-3.17) Ratio Assessment and Plan Plan: Assessment: 1. End-stage renal disease maintained on hemodialysis Sunday schedule. 2. Acute COVID-19 infection. 3. Hypertension with chronic kidney disease. 4. Anemia of chronic kidney disease. 5. Chronic kidney disease mineral bone disease maintained on PhosLo. Plan: Hemodialysis Sunday. Hold hydralazine and amlodipine for systolic blood pressure less than 120. Check iron studies.
[2023-01-20 10:21] LABS: Basophils # (A) 0.03 X 10*3/uL (0.00-0.10); Basophils % (A) 0.6 %; Eosinophils # (A) 0.19 X 10*3/uL (0.04-0.35); Eosinophils % (A) 4.1 %; HCT 27.2 % (37.2-46.3); HGB 8.7 g/dL (12.0-15.0); Lymphocytes # (A) 1.33 X 10*3/uL (0.90-5.00); Lymphocytes % (A) 28.4 %; MCH 33.1 pg (27.0-32.0); MCV 103.4 FL (80.0-97.0); Mean Platelet Volume 10.7 FL (9.5-12.2); Monocytes # (A) 0.45 X 10*3/uL (0.20-1.00); Monocytes % (A) 9.6 %; NRBC Per 100 WBC 0 X 10*3/uL (0.00-0.01); Neutrophils # (A) 2.59 X 10*3/uL (1.80-7.70); Neutrophils % (A) 55.2 %; Platelet Count 189 X 10*3/uL (140-440); RBC 2.63 X 10*6/uL (4.10-5.20); RDW 14.6 % (11.5-14.5); WBC 4.69 X 10*3/uL (4.50-10.00)
[2023-01-20] MEDS: ONDANSETRON 4 MG/2 ML VIAL IVP PRN (12:37)
[2023-01-20] MEDS ORDERED: FAMOTIDINE 20 MG/2 ML VIAL IV SCH (12:45)
[2023-01-20] MEDS: CALCIUM CARBONATE 500 MG CHEWABLE PO PRN ×2 (17:34→20:47)
[2023-01-20] MEDS: ATORVASTATIN 20 MG TAB PO SCH (20:48)
--- NOTE | 2023-01-21 05:48 | P.PN ---
Subjective 77-year-old patient with past medical history significant for end-stage renal disease on hemodialysis, history of anemia from chronic kidney disease, hyperlipidemia, hypertension, osteoarthritis, obesity, presents to the emergency department with complains of generalized weakness, fatigue. Patient states she has not been feeling well for the last 1 week with generalized weakness, cough, congestion, nausea and diarrhea. Patient stated that she had severe limitation with activity of daily living secondary to profound weakness. Workup initiated in ER including serum chemistry which showed sodium of 135 potassium of 3 chloride of 94 BU and 27 creatinine 3.78 lactate of 4.5 AST 38 AST 26 troponin within normal limits CBC obtained showed WBC 4.2 hemoglobin 9.8 hematocrit 29 platelet count 194 Initial lactate obtained 4.5 follow-up lactate 2.2 and 1.6 While in ER patient was given 2 L of fluid bolus followed by potassium supplementation, patient was admitted to medical floor for management of profound weakness from Covid 19 with consultations from nephrology for maintenance of hemodialysis Patient states she went to an urgent care a few days ago and was given cefuroxime for lower extremity cellulitis, on evaluation 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 patient had itching and rash from sulfa drugs ALLERGY list updated 01/19/2023: Patient seen and evaluated bedside, patient does complain of cough with productive phlegm, remains on room air, plan for hemodialysis today, CRP within normal limits, sodium 134 magnesium 1.8 showed to CVA hemodialysis today he had CBC reviewed WBC within normal limits M 11 9.7 platelet count within normal limits 01/21/2023 patient complains from generalized weakness and fatigue No respiratory symptoms Patient hemoglobin 8.7 Also patient complains from some stomach upset, Tums and Pepcid or Protonix is added Patient 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 Well developed, well nourished. Generally weak HEENT: Pupils are round and equally reacting to light. EOMI. No scleral icterus. No conjunctival pallor. Normocephalic, atraumatic. No pharyngeal erythema. No thyromegaly. CARDIOVASCULAR: S1 and S2 present. No murmurs, rubs, or gallops. PULMONARY: Chest is clear to auscultation, no wheezing , no crackles. ABDOMEN: Soft, nontender, nondistended, normoactive bowel sounds. No palpable organomegaly. MUSCULOSKELETAL: No joint swelling or deformity. EXTREMITIES: No cyanosis, clubbing, or pedal edema. NEUROLOGICAL: Gross neurological examination did not reveal any focal deficits. SKIN: No rashes. no petechiae. - Labs CBC & Chem 7: 01/20/23 06:21 01/20/23 06:21 Labs: Abnormal Lab Results - Last 24 Hours (Table) 01/20/23 01/20/23 Range/Units 06:21 06:21 RBC 2.63 L (4.10-5.20) X 10*6/uL Hgb 8.7 L (12.0-15.0) g/dL Hct 27.2 L (37.2-46.3) % MCV 103.4 H (80.0-97.0) FL MCH 33.1 H (27.0-32.0) pg RDW 14.6 H (11.5-14.5) % Immature Gran # 0.10 H (0.00-0.04) X 10*3/uL BUN 27.3 H (9.0-27.0) mg/dL Creatinine 3.8 H (0.6-1.5) mg/dL Est GFR (CKD-EPI) 12 L (>=60) BUN/Creatinine Ratio 7.18 L (12.00-20.00) Ratio Calcium 8.4 L (8.7-10.3) mg/dL Alkaline Phosphatase 181 H (41-126) U/L Total Protein 5.3 L (6.2-8.2) g/dL Albumin 3.1 L (3.8-4.9) g/dL Albumin/Globulin Ratio 1.41 L (1.60-3.17) Ratio Assessment and Plan Assessment: Covid 19 infection with generalized fatigue and malaise/diarrhea Anemia of chronic kidney disease, rule out other causes History of COPD with tracheobronchitis End-stage renal disease on hemodialysis Lactic acidosis on admission secondary to dehydration Hypokalemia on admission History of hypertension Plan: Continue with anemia workup, iron, folate, B12 and occult blood in stool Monitor hemoglobin Protonix and Tums Nephrology consult is appreciated fatique due to viral infection and other chronic medical problems Labs and medication were reviewed.. Continue same treatment. Continue with symptomatic treatment. Resume home medication. Monitor labs and vitals. DVT and GI prophylaxis. Further recommendations as per clinical course of the patient DVT prophylaxis: Subcutaneous heparin GI Prophylaxis: Ppi PT/OT: Pending Prognosis is guarded
[2023-01-21] MEDS: oxyCODONE-APAP 10-325MG 1 EACH TAB PO PRN ×3 (06:59→22:31)
[2023-01-21] MEDS: CALCIUM ACETATE 667 MG TAB PO SCH ×3 (07:00→17:54)
[2023-01-21] MEDS: LEVOTHYROXINE 112 MCG TAB PO SCH (07:00)
[2023-01-21] MEDS: PANTOPRAZOLE 40 MG TABLET PO SCH (07:00)
[2023-01-21 08:03] LABS: % Iron Saturation 31.19 (12.00-45.00)
[2023-01-21 08:05] LABS: Basophils % (A) 0 %; Eosinophils # (A) 0.2 k/uL (0-0.7); Eosinophils % (A) 5 %; HCT 31.6 % (34.0-46.0); HGB 10.3 gm/dL (11.4-16.0); Hypochromasia Slight; Lymphocytes # (A) 1.2 k/uL (1.0-4.8); Lymphocytes % (A) 24 %; MCH 33.6 pg (25.0-35.0); MCHC 32.6 g/dL (31.0-37.0); MCV 102.8 fL (80.0-100.0); Macrocytosis Slight; Mean Platelet Volume 7.9; Monocytes # (A) 0.3 k/uL (0-1.0); Monocytes % (A) 6 %; Neutrophils # (A) 3.2 k/uL (1.3-7.7); Neutrophils % (A) 63 %; Platelet Count 230 k/uL (150-450); RBC 3.08 m/uL (3.80-5.40); WBC 5.1 k/uL (3.8-10.6)
[2023-01-21 08:22] LABS: ALT 24 U/L (4-34); AST 36 U/L (14-36); African American GFR (CKD) 9 (>60 ml/min/1.73 sqM); Albumin 3.7 g/dL (3.5-5.0); Albumin/Globulin Ratio 1.2; Alkaline Phosphatase 210 U/L (38-126); Anion Gap 12 mmol/L; Blood Urea Nitrogen 43 mg/dL (7-17); Carbon Dioxide 27 mmol/L (22-30); Chloride 94 mmol/L (98-107); Globulin 3.1 g/dL; Glucose 84 mg/dL (74-99); LDH 178 U/L (120-246); Magnesium 1.8 mg/dL (1.6-2.3); Non-African American GFR(CKD) 8 (>60 ml/min/1.73 sqM); Potassium 4.5 mmol/L (3.5-5.1); Sodium 133 mmol/L (137-145); Total Bilirubin 0.6 mg/dL (0.2-1.3); Total Protein 6.8 g/dL (6.3-8.2)
[2023-01-21] MEDS: ONDANSETRON 4 MG/2 ML VIAL IVP PRN (08:59)
[2023-01-21] MEDS: FOLIC ACID-VIT B COMPLEX-VIT C 1 CAP PO SCH (09:00)
[2023-01-21] MEDS ORDERED: FAMOTIDINE 20 MG TAB PO SCH (09:00)
[2023-01-21] MEDS: METOPROLOL TARTRATE 50 MG TAB PO SCH ×2 (09:00→20:41)
[2023-01-21] MEDS: HEPARIN SODIUM,PORCINE 5,000 UNIT/ML 1 ML VIAL SQ SCH ×3 (09:00→20:51)
[2023-01-21] MEDS: hydrALAZINE HCL 25 MG TAB PO SCH ×2 (09:00→20:41)
[2023-01-21] MEDS: ZINC SULFATE 220 MG CAP PO SCH (09:00)
[2023-01-21] MEDS: CALCIUM CARBONATE 500 MG CHEWABLE PO PRN ×2 (09:00→20:51)
[2023-01-21] MEDS: AZITHROMYCIN 500 MG TAB PO SCH (09:00)
[2023-01-21] MEDS: ASCORBIC ACID 500 MG TAB PO SCH (09:00)
[2023-01-21] MEDS: lisinopriL 20 MG TAB PO SCH ×2 (09:01→20:41)
[2023-01-21 09:26] LABS: C Reactive Protein 0.6 mg/dL (<1.0)
--- NOTE | 2023-01-21 12:06 | P.PN ---
Subjective Patient is seen in follow-up for end-stage renal disease. She is maintained on hemodialysis on Sunday schedule. Resting in bed. Denies chest pain or shortness of breath at this time. Blood pressure controlled. Continues to have a cough. On room air. Vital signs are stable. General: No acute distress. HEENT: Head exam is unremarkable. LUNGS: No audible rhonchi or wheezes. HEART: Rate and Rhythm are regular. ABDOMEN: Nontender. EXTREMITITES: No edema. Objective - Vital Signs Vital signs: Vital Signs Temp 97.7 F 01/21/23 07:13 Pulse 72 01/21/23 07:13 Resp 18 01/21/23 07:13 BP 129/66 01/21/23 07:13 Pulse Ox 98 01/21/23 07:13 FiO2 Intake & Output 01/20/23 01/21/23 01/21/23 18:59 06:59 18:59 Other: # Voids 2 2 # Bowel Movements 2 - Labs CBC & Chem 7: 01/21/23 07:47 01/21/23 07:47 Labs: Abnormal Lab Results - Last 24 Hours (Table) 01/20/23 01/21/23 01/21/23 Range/Units 06:21 07:47 07:47 RBC 3.08 L (3.80-5.40) m/uL Hgb 10.3 L (11.4-16.0) gm/dL Hct 31.6 L (34.0-46.0) % MCV 102.8 H (80.0-100.0) fL Sodium 133 L (137-145) mmol/L Chloride 94 L (98-107) mmol/L BUN 43 H (7-17) mg/dL Creatinine 5.12 H (0.52-1.04) mg/dL TIBC 218 L (228-460) UG/DL Transferrin 156.0 L (204.0-354.0) mg/dL Ferritin 1306.0 H (10.0-291.0) ng/mL Alkaline Phosphatase 210 H (38-126) U/L Assessment and Plan Plan: Assessment: 1. End-stage renal disease maintained on hemodialysis Sunday schedule. 2. Acute COVID-19 infection. 3. Hypertension with chronic kidney disease. 4. Anemia of chronic kidney disease. Iron replete. 5. Chronic kidney disease mineral bone disease maintained on PhosLo. Plan: Hemodialysis Sunday. Hold hydralazine and amlodipine for systolic blood pressure less than 120. Add Aranesp.
[2023-01-21] MEDS ORDERED: DARBEPOETIN ALFA 40 MCG/0.4 ML SYRINGE SQ SCH (12:15)
[2023-01-21] MEDS: CYANOCOBALAMIN 1,000 MCG/ML 1 ML VIAL IM SCH (17:47)
[2023-01-21] MEDS: ATORVASTATIN 20 MG TAB PO SCH (20:51)
--- NOTE | 2023-01-21 21:59 | P.PN ---
Subjective 77-year-old patient with past medical history significant for end-stage renal disease on hemodialysis, history of anemia from chronic kidney disease, hyperlipidemia, hypertension, osteoarthritis, obesity, presents to the emergency department with complains of generalized weakness, fatigue. Patient states she has not been feeling well for the last 1 week with generalized weakness, cough, congestion, nausea and diarrhea. Patient stated that she had severe limitation with activity of daily living secondary to profound weakness. Workup initiated in ER including serum chemistry which showed sodium of 135 potassium of 3 chloride of 94 BU and 27 creatinine 3.78 lactate of 4.5 AST 38 AST 26 troponin within normal limits CBC obtained showed WBC 4.2 hemoglobin 9.8 hematocrit 29 platelet count 194 Initial lactate obtained 4.5 follow-up lactate 2.2 and 1.6 While in ER patient was given 2 L of fluid bolus followed by potassium supplementation, patient was admitted to medical floor for management of profound weakness from Covid 19 with consultations from nephrology for maintenance of hemodialysis Patient states she went to an urgent care a few days ago and was given cefuroxime for lower extremity cellulitis, on evaluation 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 patient had itching and rash from sulfa drugs ALLERGY list updated 01/19/2023: Patient seen and evaluated bedside, patient does complain of cough with productive phlegm, remains on room air, plan for hemodialysis today, CRP within normal limits, sodium 134 magnesium 1.8 showed to CVA hemodialysis today he had CBC reviewed WBC within normal limits M 11 9.7 platelet count within normal limits 01/20/2023 patient complains from generalized weakness and fatigue No respiratory symptoms Patient hemoglobin 8.7 Also patient complains from some stomach upset, Tums and Pepcid or Protonix is added 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 Patient sitting in chair mildly dyspneic no chest pain He is saturating well on the ventilator oxygen via nasal cannula in high 90s D-dimer was mildly elevated, CTPA was negative for PE Portcalcitonin is negative, LDH is normal, CRP mildly elevated Most likely patient has COPD exacerbation secondary to Covid infection however patient was started on remdesivir Echocardiogram is pending in the recovery to Covid infection Objective - Vital Signs Vital signs: Vital Signs Temp 98.5 F 01/21/23 13:50 Pulse 65 01/21/23 13:50 Resp 17 01/21/23 13:50 BP 91/51 01/21/23 13:50 Pulse Ox 94 L 01/21/23 13:50 FiO2 Intake & Output 01/21/23 01/21/23 01/22/23 06:59 18:59 06:59 Other: # Voids 2 3 - Exam -GENERAL: The patient is alert and oriented x3, not in any acute distress. Well developed, well nourished. Generally weak HEENT: Pupils are round and equally reacting to light. EOMI. No scleral icterus. No conjunctival pallor. Normocephalic, atraumatic. No pharyngeal erythema. No thyromegaly. CARDIOVASCULAR: S1 and S2 present. No murmurs, rubs, or gallops. PULMONARY: Chest is clear to auscultation, no wheezing , no crackles. ABDOMEN: Soft, nontender, nondistended, normoactive bowel sounds. No palpable organomegaly. MUSCULOSKELETAL: No joint swelling or deformity. EXTREMITIES: No cyanosis, clubbing, or pedal edema. NEUROLOGICAL: Gross neurological examination did not reveal any focal deficits. SKIN: No rashes. no petechiae. - Labs CBC & Chem 7: 01/21/23 07:47 01/21/23 07:47 Labs: Abnormal Lab Results - Last 24 Hours (Table) 01/20/23 01/21/23 01/21/23 Range/Units 06:21 07:47 07:47 RBC 3.08 L (3.80-5.40) m/uL Hgb 10.3 L (11.4-16.0) gm/dL Hct 31.6 L (34.0-46.0) % MCV 102.8 H (80.0-100.0) fL D-Dimer (<0.60) mg/L FEU Sodium 133 L (137-145) mmol/L Chloride 94 L (98-107) mmol/L BUN 43 H (7-17) mg/dL Creatinine 5.12 H (0.52-1.04) mg/dL TIBC 218 L (228-460) UG/DL Transferrin 156.0 L (204.0-354.0) mg/dL Ferritin 1306.0 H (10.0-291.0) ng/mL Alkaline Phosphatase 210 H (38-126) U/L Vitamin B12 191.0 L (200.0-944.0) pg/mL 01/21/23 Range/Units 16:07 RBC (3.80-5.40) m/uL Hgb (11.4-16.0) gm/dL Hct (34.0-46.0) % MCV (80.0-100.0) fL D-Dimer 0.98 H (<0.60) mg/L FEU Sodium (137-145) mmol/L Chloride (98-107) mmol/L BUN (7-17) mg/dL Creatinine (0.52-1.04) mg/dL TIBC (228-460) UG/DL Transferrin (204.0-354.0) mg/dL Ferritin (10.0-291.0) ng/mL Alkaline Phosphatase (38-126) U/L Vitamin B12 (200.0-944.0) pg/mL Assessment and Plan Assessment: Covid 19 infection with generalized fatigue and malaise/diarrhea Anemia of chronic kidney disease, rule out other causes History of COPD with tracheobronchitis End-stage renal disease on hemodialysis Lactic acidosis on admission secondary to dehydration Hypokalemia on admission History of hypertension Plan: Continue with anemia workup, iron, folate, B12 and occult blood in stool Monitor hemoglobin Protonix and Tums Nephrology consult is appreciated fatique due to viral infection and other chronic medical problems Labs and medication were reviewed.. Continue same treatment. Continue with symptomatic treatment. Resume home medication. Monitor labs and vitals. DVT and GI prophylaxis. Further recommendations as per clinical course of the patient DVT prophylaxis: Subcutaneous heparin GI Prophylaxis: Ppi PT/OT: Pending Prognosis is guarded
--- NOTE | 2023-01-21 23:44 | P.PN ---
Subjective 77-year-old patient with past medical history significant for end-stage renal disease on hemodialysis, history of anemia from chronic kidney disease, hyperlipidemia, hypertension, osteoarthritis, obesity, presents to the emergency department with complains of generalized weakness, fatigue. Patient states she has not been feeling well for the last 1 week with generalized weakness, cough, congestion, nausea and diarrhea. Patient stated that she had severe limitation with activity of daily living secondary to profound weakness. Workup initiated in ER including serum chemistry which showed sodium of 135 potassium of 3 chloride of 94 BU and 27 creatinine 3.78 lactate of 4.5 AST 38 AST 26 troponin within normal limits CBC obtained showed WBC 4.2 hemoglobin 9.8 hematocrit 29 platelet count 194 Initial lactate obtained 4.5 follow-up lactate 2.2 and 1.6 While in ER patient was given 2 L of fluid bolus followed by potassium supplementation, patient was admitted to medical floor for management of profound weakness from Covid 19 with consultations from nephrology for maintenance of hemodialysis Patient states she went to an urgent care a few days ago and was given cefuroxime for lower extremity cellulitis, on evaluation 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 patient had itching and rash from sulfa drugs ALLERGY list updated 01/19/2023: Patient seen and evaluated bedside, patient does complain of cough with productive phlegm, remains on room air, plan for hemodialysis today, CRP within normal limits, sodium 134 magnesium 1.8 showed to CVA hemodialysis today he had CBC reviewed WBC within normal limits M 11 9.7 platelet count within normal limits 01/20/2023 patient complains from generalized weakness and fatigue No respiratory symptoms Patient hemoglobin 8.7 Also patient complains from some stomach upset, Tums and Pepcid or Protonix is added Patient continue with hemodialysis for ESRD 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 Therefore going to order CT of the chest to rule out PE and tomorrow she will go for hemodialysis Discussed with the staff After medicated to the nephrology team Patient remains on oral Zithromax. Hemoglobin 8.7) monitoring. Vital stable Review of systems CONSTITUTIONAL: No fever, no malaise, no fatigue. HEENT: No recent visual problems or hearing problems. Denied any sore throat. CARDIOVASCULAR: No orthopnea, PND, no palpitations, no syncope. PULMONARY: No shortness of breath, no cough, no hemoptysis. GASTROINTESTINAL: No diarrhea, no nausea, no vomiting, no abdominal pain. Normoactive bowel sounds. Active Medications Generic Name Dose Route Start Last Admin Trade Name Freq PRN Reason Stop Dose Admin Acetaminophen 650 mg 01/18/23 09:17 01/19/23 20:38 Acetaminophen Tab 325 Mg Tab PO 650 mg Q4HR PRN Administration Fever>101 Albuterol Sulfate 2 puff 01/18/23 08:00 Albuterol Hfa Inhaler INHALATION RT-QID PRN Shortness Of Breath Ascorbic Acid 500 mg 01/17/23 17:15 01/21/23 09:00 Ascorbic Acid 500 Mg Tab PO 500 mg DAILY WILFREDO Administration Atorvastatin Calcium 20 mg 01/18/23 21:00 01/21/23 20:51 Atorvastatin 20 Mg Tab PO 20 mg HS WILFREDO Administration Azithromycin 500 mg 01/19/23 12:00 01/21/23 09:00 Azithromycin 500 Mg Tab PO 01/23/23 09:01 500 mg DAILY WILFREDO Administration Protocol Budesonide/Formoterol Fumarate 2 puff 01/18/23 05:06 Symbicort 160-4.5 Mcg Inhaler INHALATION RT-BID PRN Shortness Of Breath Calcium Acetate 1,334 mg 01/18/23 07:30 01/21/23 17:54 Calcium Acetate 667 Mg Tab PO 1,334 mg AC-TID WILFREDO Administration Calcium Carbonate/Glycine 500 mg 01/20/23 12:37 01/21/23 20:51 Calcium Carbonate 500 Mg Chewable PO 500 mg TID PRN Administration Heartburn Cyanocobalamin 1,000 mcg 01/21/23 16:00 01/21/23 17:47 Cyanocobalamin 1,000 Mcg/Ml 1 Ml Vial IM 01/24/23 16:01 1,000 mcg DAILY WILFREDO Administration Darbepoetin Armando 40 mcg 01/21/23 12:15 01/21/23 13:56 Darbepoetin Armando 40 Mcg/0.4 Ml Syringe SQ 40 mcg Q7D WILFREDO Administration Heparin Sodium (Porcine) 5,000 unit 01/18/23 16:00 01/21/23 20:51 Heparin Sodium,Porcine 5,000 Unit/Ml 1 Ml Vial SQ 5,000 unit Q8HR WILFREDO Administration Hydralazine HCl 25 mg 01/18/23 09:00 01/21/23 20:41 Hydralazine Hcl 25 Mg Tab PO Not Given BID WILFREDO Hydromorphone HCl 1 mg 01/17/23 17:07 01/18/23 04:18 Hydromorphone 1 Mg/Ml 1 Ml Syringe IVP 1 mg Q3HR PRN Administration Severe Pain (Scale 7 to 10) Levothyroxine Sodium 112 mcg 01/18/23 07:30 01/21/23 07:00 Levothyroxine 112 Mcg Tab PO 112 mcg AC-BRKFST WILFREDO Administration Lisinopril 20 mg 01/20/23 21:00 01/21/23 20:41 Lisinopril 20 Mg Tab PO Not Given BID WILFREDO Metoprolol Tartrate 50 mg 01/18/23 09:00 01/21/23 20:41 Metoprolol Tartrate 50 Mg Tab PO Not Given BID WILFREDO Multivit/Ca Carb/B Cmplx/FA/Prenat 1 each 01/18/23 09:00 01/21/23 09:00 Folic Acid-Vit B Complex-Vit C 1 Cap PO 1 each DAILY WILFREDO Administration Naloxone HCl 0.2 mg 01/17/23 17:07 Naloxone 0.4 Mg/Ml 1 Ml Vial IV Q2M PRN Opioid Reversal Ondansetron HCl 4 mg 01/17/23 17:07 01/21/23 08:59 Ondansetron 4 Mg/2 Ml Vial IVP 4 mg Q8HR PRN Administration Nausea And Vomiting Oxycodone/Acetaminophen 1 each 01/18/23 09:00 01/21/23 22:31 Oxycodone-Apap 10-325mg 1 Each Tab PO 1 each TID PRN Administration Pain Pantoprazole Sodium 40 mg 01/21/23 07:30 01/21/23 07:00 Pantoprazole 40 Mg Tablet PO 40 mg AC-BRKFST WILFREDO Administration Zinc Sulfate 220 mg 01/17/23 17:15 01/21/23 09:00 Zinc Sulfate 220 Mg Cap PO 220 mg DAILY WILFREDO Administration Objective - Vital Signs Vital signs: Vital Signs Temp 98.5 F 01/21/23 18:58 Pulse 71 01/21/23 18:58 Resp 18 01/21/23 18:58 BP 102/51 01/21/23 18:58 Pulse Ox 93 L 01/21/23 18:58 FiO2 Intake & Output 01/21/23 01/21/23 01/22/23 06:59 18:59 06:59 Other: # Voids 2 3 - Exam -GENERAL: The patient is alert and oriented x3, not in any acute distress. Well developed, well nourished. Generally weak HEENT: Pupils are round and equally reacting to light. EOMI. No scleral icterus. No conjunctival pallor. Normocephalic, atraumatic. No pharyngeal erythema. No thyromegaly. CARDIOVASCULAR: S1 and S2 present. No murmurs, rubs, or gallops. PULMONARY: Chest is clear to auscultation, no wheezing , no crackles. ABDOMEN: Soft, nontender, nondistended, normoactive bowel sounds. No palpable organomegaly. MUSCULOSKELETAL: No joint swelling or deformity. EXTREMITIES: No cyanosis, clubbing, or pedal edema. NEUROLOGICAL: Gross neurological examination did not reveal any focal deficits. SKIN: No rashes. no petechiae. - Labs CBC & Chem 7: 01/21/23 07:47 01/21/23 07:47 Labs: Abnormal Lab Results - Last 24 Hours (Table) 01/20/23 01/21/23 01/21/23 Range/Units 06:21 07:47 07:47 RBC 3.08 L (3.80-5.40) m/uL Hgb 10.3 L (11.4-16.0) gm/dL Hct 31.6 L (34.0-46.0) % MCV 102.8 H (80.0-100.0) fL D-Dimer (<0.60) mg/L FEU Sodium 133 L (137-145) mmol/L Chloride 94 L (98-107) mmol/L BUN 43 H (7-17) mg/dL Creatinine 5.12 H (0.52-1.04) mg/dL TIBC 218 L (228-460) UG/DL Transferrin 156.0 L (204.0-354.0) mg/dL Ferritin 1306.0 H (10.0-291.0) ng/mL Alkaline Phosphatase 210 H (38-126) U/L Vitamin B12 191.0 L (200.0-944.0) pg/mL 01/21/23 Range/Units 16:07 RBC (3.80-5.40) m/uL Hgb (11.4-16.0) gm/dL Hct (34.0-46.0) % MCV (80.0-100.0) fL D-Dimer 0.98 H (<0.60) mg/L FEU Sodium (137-145) mmol/L Chloride (98-107) mmol/L BUN (7-17) mg/dL Creatinine (0.52-1.04) mg/dL TIBC (228-460) UG/DL Transferrin (204.0-354.0) mg/dL Ferritin (10.0-291.0) ng/mL Alkaline Phosphatase (38-126) U/L Vitamin B12 (200.0-944.0) pg/mL Assessment and Plan Assessment: Covid 19 infection with generalized fatigue and malaise/diarrhea Anemia of chronic kidney disease, rule out other causes History of COPD with tracheobronchitis End-stage renal disease on hemodialysis Lactic acidosis on admission secondary to dehydration Hypokalemia on admission History of hypertension Plan: Continue with anemia workup, iron, folate, B12 and occult blood in stool Check CTA of the chest rule out PE Monitor hemoglobin Protonix and Tums Nephrology consult is appreciated fatique due to viral infection and other chronic medical problems Labs and medication were reviewed.. Continue same treatment. Continue with symptomatic treatment. Resume home medication. Monitor labs and vitals. DVT and GI prophylaxis. Further recommendations as per clinical course of the patient DVT prophylaxis: Subcutaneous heparin GI Prophylaxis: Ppi PT/OT: Pending Prognosis is guarded
--- NOTE | 2023-01-22 01:37 | CT ---
EXAM: CT Angiography Chest With Intravenous Contrast CLINICAL HISTORY: Elevated DDimer TECHNIQUE: Axial computed tomographic angiography images of the chest with intravenous contrast. CTDI is 6 51.2 mGy and DLP is 789.3 mGy-cm. This CT exam was performed using one or more of the following dose reduction techniques: automated exposure control, adjustment of the mA and/or kV according to patient size, and/or use of iterative reconstruction technique. MIP reconstructed images were created and reviewed. COMPARISON: No relevant prior studies available. FINDINGS: Pulmonary arteries: Unremarkable. No pulmonary embolism. Aorta: No acute findings. No thoracic aortic aneurysm. Lungs: Unremarkable. No mass. No consolidation. Pleural space: Unremarkable. No significant effusion. No pneumothorax. Heart: Unremarkable. No cardiomegaly. No significant pericardial effusion. No evidence of RV dysfunction. Bones/joints: No acute fracture. No dislocation. Soft tissues: Unremarkable. Lymph nodes: Unremarkable. No enlarged lymph nodes. IMPRESSION: No evidence of pulmonary emboli or acute cardiopulmonary process.
[2023-01-22] MEDS: CALCIUM ACETATE 667 MG TAB PO SCH ×4 (06:40→12:09)
[2023-01-22] MEDS: oxyCODONE-APAP 10-325MG 1 EACH TAB PO PRN ×2 (06:40→16:01)
[2023-01-22] MEDS: PANTOPRAZOLE 40 MG TABLET PO SCH (06:41)
[2023-01-22] MEDS: LEVOTHYROXINE 112 MCG TAB PO SCH (06:41)
[2023-01-22] MEDS: FOLIC ACID-VIT B COMPLEX-VIT C 1 CAP PO SCH (08:11)
[2023-01-22] MEDS: HEPARIN SODIUM,PORCINE 5,000 UNIT/ML 1 ML VIAL SQ SCH (08:11)
[2023-01-22] MEDS: CYANOCOBALAMIN 1,000 MCG/ML 1 ML VIAL IM SCH (08:11)
[2023-01-22] MEDS: lisinopriL 20 MG TAB PO SCH (08:11)
[2023-01-22] MEDS: METOPROLOL TARTRATE 50 MG TAB PO SCH (08:11)
[2023-01-22] MEDS: hydrALAZINE HCL 25 MG TAB PO SCH (08:11)
[2023-01-22] MEDS: ASCORBIC ACID 500 MG TAB PO SCH (08:11)
[2023-01-22] MEDS: AZITHROMYCIN 500 MG TAB PO SCH (08:11)
[2023-01-22] MEDS: ZINC SULFATE 220 MG CAP PO SCH (08:11)
--- NOTE | 2023-01-22 10:55 | P.PN ---
Subjective Patient is seen in follow-up for end-stage renal disease. She is maintained on hemodialysis on Sunday schedule. Resting in bed. Denies chest pain or shortness of breath at this time. Blood pressure controlled. Developed episode of chest pain last night and underwent CTA which showed no evidence of PE. Vital signs are stable. General: No acute distress. HEENT: Head exam is unremarkable. LUNGS: No audible rhonchi or wheezes. HEART: Rate and Rhythm are regular. ABDOMEN: Nontender. EXTREMITITES: No edema. Objective - Vital Signs Vital signs: Vital Signs Temp 98.4 F 01/22/23 07:46 Pulse 76 01/22/23 08:11 Resp 16 01/22/23 08:11 BP 122/69 01/22/23 07:46 Pulse Ox 95 01/22/23 07:46 FiO2 Intake & Output 01/21/23 01/22/23 01/22/23 18:59 06:59 18:59 Output Total 1600 Balance -1600 Output: Urine 1600 Other: # Voids 3 - Labs CBC & Chem 7: 01/21/23 07:47 01/21/23 07:47 Labs: Abnormal Lab Results - Last 24 Hours (Table) 01/21/23 01/21/23 Range/Units 07:47 16:07 D-Dimer 0.98 H (<0.60) mg/L FEU Vitamin B12 191.0 L (200.0-944.0) pg/mL Assessment and Plan Plan: Assessment: 1. End-stage renal disease maintained on hemodialysis Sunday schedule. 2. Acute COVID-19 infection. No PE noted on CTA. 3. Hypertension with chronic kidney disease. 4. Anemia of chronic kidney disease. Iron replete. On Aranesp. 5. Chronic kidney disease mineral bone disease maintained on PhosLo. Plan: Hemodialysis today. Hold hydralazine and amlodipine for systolic blood pressure less than 120.
[2023-01-22] MEDS ORDERED: LOPERAMIDE 2 MG CAP PO STA (12:02)
[2023-01-22 16:08] VITALS: BP 121/56; PULSE 63; RESP 20; TEMP 98
--- NOTE | 2023-01-23 07:07 | P.DS ---
Providers Date of admission: 01/17/23 17:23 Attending physician: Arian Mckeon Consults: 01/17/23 17:07 Consult Physician Urgent Consulting Provider: Holly Tran Consult Reason/Comments: ESRD Hemodialysis M-W-F Do you want consulting provider notified?: Yes 01/18/23 09:26 Consult Physician Routine Consulting Provider: Leeanna Kovacs Consult Reason/Comments: Covid viral pneumonia, sepsis on admission Do you want consulting provider notified?: Yes Primary care physician: Gautam Rizvi [facility] Course: Diagnoses: Covid 19 infection with generalized fatigue and malaise/diarrhea Mildly elevated d-dimer with negative CTPA for pulmonary embolism End-stage renal disease maintained on hemodialysis Sunday schedule. Anemia of chronic kidney disease, History of COPD with tracheobronchitis Lactic acidosis on admission secondary to dehydration. Improved and back to baseline at 1.6 Hypokalemia on admission, resolved History of hypertension Hospital course: 77-year-old patient with past medical history significant for end-stage renal disease on hemodialysis, history of anemia from chronic kidney disease, hyperlipidemia, hypertension, osteoarthritis, obesity, presents to the emergency department with complains of generalized weakness, fatigue. Patient states she has not been feeling well for the last 1 week with generalized weakness, cough, congestion, nausea and diarrhea. Patient stated that she had severe limitation with activity of daily living secondary to profound weakness. Patient found to have fatigue secondary to viral infection with COVID-19. Patient has no pneumonia or hypoxia. D-dimer was mildly elevated 0.98 and CTA of the chest was negative for pulmonary embolism and showed no consolidation in the pulmonary parenchyma to suspect Pneumonia. Patient was with no dyspnea or chest pain and discharge and she was saturating 98% on room air. Afebrile. On the day of discharge she denies any other new complaints. She is eager to go home as well. And was cleared for discharge by ed case manager Problems and management plan were discussed with the patient and he verbalized understanding and acceptance Patient was found stable and can be discharged home in guarded prognosis however he needs follow-up as an outpatient. Patient was instructed to follow up with PCP Dr. Rizvi within one week and patient agrees Patient was instructed to follow up with ed case manager Dr. Tran in one week and she agrees Physical exam Gen: patient is a AAOx3, no distress CVS: S1-S2, RRR, no murmur Lungs: B/L CTA, no wheezing Abdomen: soft, no distention, no tenderness, positive bowel sounds Extremity: no leg edema or induration Time spent more than 35 minutes Patient Condition at Discharge: Good Plan - Discharge Summary Discharge Rx Participant: Yes New Discharge Prescriptions: New Zinc Sulfate [Orazinc] 220 mg PO DAILY #30 cap Omeprazole [PriLOSEC] 20 mg PO AC-BID #60 cap Acetaminophen Tab [Tylenol] 650 mg PO Q4HR PRN tab PRN Reason: Fever>101 Ascorbic Acid [Vitamin C] 500 mg PO DAILY #30 tab Cyanocobalamin [Vitamin B-12] 1,000 mcg PO DAILY #60 tablet Continue Levothyroxine Sodium [Synthroid] 112 mcg PO AC-BRKFST Rosuvastatin Calcium [Crestor] 10 mg PO HS Metoprolol Tartrate [Lopressor] 50 mg PO BID Calcium Acetate 1,334 mg PO AC-TID oxyCODONE-APAP 10-325MG [Percocet 10-325 mg] 1 tab PO TID PRN PRN Reason: Pain Albuterol Inhaler [Ventolin Hfa Inhaler] 2 puff INHALATION RT-QID PRN PRN Reason: Shortness Of Breath Albuterol Nebulized [Ventolin Nebulized] 2.5 mg INHALATION RT-QID PRN PRN Reason: Shortness Of Breath Vit B Comp No.3/Folic/C/Biotin [Rosy-Karla Rx Tablet] 1 tab PO DAILY Budesonide/Formoterol Fumarate [Symbicort 160-4.5 Mcg Inhaler] 2 puff INHALATION RT-BID PRN PRN Reason: Shortness Of Breath Ipratropium Nebulized [Atrovent Nebulized 0.2 MG/ML] 0.5 mg INHALATION RT-TID PRN PRN Reason: Shortness Of Breath lisinopriL 40 mg PO DAILY hydrALAZINE HCL [Apresoline] 25 mg PO BID Discontinued Furosemide [Lasix] 20 mg PO BID amLODIPine [Norvasc] 10 mg PO DAILY Discharge Medication List Levothyroxine Sodium [Synthroid] 112 mcg PO AC-BRKFST 03/18/19 [History] Rosuvastatin Calcium [Crestor] 10 mg PO HS 03/18/19 [History] Calcium Acetate 1,334 mg PO AC-TID 12/22/19 [History] Metoprolol Tartrate [Lopressor] 50 mg PO BID 12/22/19 [History] oxyCODONE-APAP 10-325MG [Percocet 10-325 mg] 1 tab PO TID PRN 02/18/22 [History] Albuterol Inhaler [Ventolin Hfa Inhaler] 2 puff INHALATION RT-QID PRN 06/15/22 [History] Albuterol Nebulized [Ventolin Nebulized] 2.5 mg INHALATION RT-QID PRN 06/15/22 [History] Vit B Comp No.3/Folic/C/Biotin [Rosy-Karla Rx Tablet] 1 tab PO DAILY 12/12/22 [History] Budesonide/Formoterol Fumarate [Symbicort 160-4.5 Mcg Inhaler] 2 puff INHALATION RT-BID PRN 01/17/23 [History] Ipratropium Nebulized [Atrovent Nebulized 0.2 MG/ML] 0.5 mg INHALATION RT-TID PRN 01/17/23 [History] hydrALAZINE HCL [Apresoline] 25 mg PO BID 01/17/23 [History] lisinopriL 40 mg PO DAILY 01/17/23 [History] Acetaminophen Tab [Tylenol] 650 mg PO Q4HR PRN tab 01/22/23 [Rx] Ascorbic Acid [Vitamin C] 500 mg PO DAILY #30 tab 01/22/23 [Rx] Cyanocobalamin [Vitamin B-12] 1,000 mcg PO DAILY #60 tablet 01/22/23 [Rx] Omeprazole [PriLOSEC] 20 mg PO AC-BID #60 cap 01/22/23 [Rx] Zinc Sulfate [Orazinc] 220 mg PO DAILY #30 cap 01/22/23 [Rx] Follow up Appointment(s)/Referral(s): Holly Tran MD [STAFF PHYSICIAN] - 1 Week (Follow-up with dialysis center) Gautam Rizvi DO [Primary Care Provider] - 01/30/23 12:40 pm Activity/Diet/Wound Care/Special Instructions: heart healthy diet activity is restricted till you see your doctor Discharge Disposition: HOME WITH HOME HEALTH SERVICES
== END 2023-01-22 18:19 | disposition home health service (06) | DRG 177 ==
LOC: EC 14:20 → 4SSUR 17:23
PROVIDERS: ADMIT Hospitalist; ATTEND Hospitalist
PROC: 8E0ZXY6 Isolation (ICD-10-PCS; 2023-01-17)
PROC: 5A1D70Z Performance of Urinary Filtration, Intermittent, Less than 6 Hours Per Day (ICD-10-PCS; principal; 2023-01-19)
DX: U07.1 COVID-19 (principal); N18.6 End stage renal disease; I12.0 Hypertensive chronic kidney disease with stage 5 chronic kidney disease or end stage renal disease; E87.20 Acidosis, unspecified; J44.0 Chronic obstructive pulmonary disease with (acute) lower respiratory infection; E11.22 Type 2 diabetes mellitus with diabetic chronic kidney disease; D63.1 Anemia in chronic kidney disease; E66.9 Obesity, unspecified; E78.5 Hyperlipidemia, unspecified; G89.29 Other chronic pain; E87.6 Hypokalemia; E86.0 Dehydration; M89.8X9 Other specified disorders of bone, unspecified site; E87.5 Hyperkalemia; R03.1 Nonspecific low blood-pressure reading; K30 Functional dyspepsia; M19.90 Unspecified osteoarthritis, unspecified site; M54.9 Dorsalgia, unspecified; Z96.653 Presence of artificial knee joint, bilateral; Z99.2 Dependence on renal dialysis; Z68.39 Body mass index [BMI] 39.0-39.9, adult; Z98.84 Bariatric surgery status; Z85.42 Personal history of malignant neoplasm of other parts of uterus; I25.2 Old myocardial infarction; Z79.890 Hormone replacement therapy; Z79.51 Long term (current) use of inhaled steroids; Z88.6 Allergy status to analgesic agent; Z79.899 Other long term (current) drug therapy; Z88.1 Allergy status to other antibiotic agents; Z88.8 Allergy status to other drugs, medicaments and biological substances; Z88.2 Allergy status to sulfonamides; Z86.73 Personal history of transient ischemic attack (TIA), and cerebral infarction without residual deficits; Z87.891 Personal history of nicotine dependence; Z87.19 Personal history of other diseases of the digestive system
CPT/HCPCS: 36415; 71046; 71275; 80048; 80053; 81001; 82607; 82728; 82746; 83540; 83550; 83605; 83615; 83735; 83880; 84484; 85025; 85379; 85610; 85730; 86140; 86706; 87340; 87636; 90935; 93005; 96374; 99285

== ENCOUNTER → 2023-07-03 | Outpatient (CLI) | payer MEDICARE, BC ==
--- NOTE | 2023-07-10 10:58 | MM ---
Reason for Exam: Screening (asymptomatic). Last mammogram was performed 1 year(s) and 6 month(s) ago. Patient History: Menarche at age 14. Patient has no children. Left ovary removed at age 48. Right ovary removed at age 48. Hysterectomy at age 48. Postmenopausal. Risk Values: Paola 5 year model risk: 1.8%. NCI Lifetime model risk: 3.4%. Prior Study Comparison: 03/14/2019 Bilateral Screening Mammogram, [facility]. 06/01/2020 Bilateral Screening Mammogram, [facility]. 01/03/2022 Bilateral MG 3D screening mammo w/cad, [facility]. Tissue Density: There are scattered areas of fibroglandular density. Findings: Analyzed By CAD. There is no suspicious group of microcalcifications or new suspicious mass in either breast. Benign appearing calcifications. Overall Assessment: Benign, BI-RAD 2 Management: Screening Mammogram of both breasts in 1 year. . Patient should continue monthly self-breast exams. A clinical breast exam by your physician is recommended on an annual basis. This exam should not preclude additional follow-up of suspicious palpable abnormalities. Note on Paola scores and lifetime risk: 1. A Paola score greater than 3% is considered moderate risk. If this is the case, consider specialist referral to assess eligibility for a risk reducing agent. 2. If overall lifetime risk for the development of breast cancer is 20% or higher, the patient may qualify for future screening with alternating mammogram and breast MRI. Electronically signed and approved by: Fantasma Alston M.D. Radiologis
== END | disposition home or self-care (01) ==
LOC: RADMAMWWP 11:10
PROVIDERS: ATTEND Family Medicine
DX: Z12.31 Encounter for screening mammogram for malignant neoplasm of breast (principal); Z78.0 Asymptomatic menopausal state
CPT/HCPCS: 77063; 77067

== ENCOUNTER 2023-08-27 15:21 | Inpatient (IN) | payer MEDICARE, BC, OTHER ==
--- NOTE | 2023-08-27 15:45 | ED ---
General Adult HPI - General Chief complaint: Shortness of Breath Stated complaint: Fluid buildup in lungs Time Seen by Provider: 08/27/23 15:24 Source: patient, EMS, RN notes reviewed Mode of arrival: EMS Limitations: no limitations - History of Present Illness Initial comments: Patient is a pleasant 77-year-old female presenting to the emergency department with difficulty breathing. Onset of symptoms was around a week ago. Symptoms have progressed since that time. Patient does have some leg swelling. Patient did go to her doctor's office and had an x-ray done telling her that there was fluid on her lungs and to go to the emergency department. Patient denies chest pain. Occasional cough. Patient does have history of COPD. - Related Data Home Medications Medication Instructions Recorded Confirmed Levothyroxine Sodium [Synthroid] 112 mcg PO AC-BRKFST 03/18/19 08/27/23 Rosuvastatin Calcium [Crestor] 10 mg PO HS 03/18/19 08/27/23 Calcium Acetate 1,334 mg PO TID-W/MEALS 12/22/19 08/27/23 Metoprolol Tartrate [Lopressor] 50 mg PO BID 12/22/19 08/27/23 oxyCODONE-APAP 10-325MG [Percocet 1 tab PO TID PRN 02/18/22 08/27/23 10-325 mg] Albuterol Inhaler [Ventolin Hfa 2 puff INHALATION RT-QID PRN 06/15/22 08/27/23 Inhaler] Albuterol Nebulized [Ventolin 2.5 mg INHALATION RT-QID PRN 06/15/22 08/27/23 Nebulized] lisinopriL 40 mg PO DAILY 01/17/23 08/27/23 Cyanocobalamin (Vitamin B-12) 1,000 mcg PO DAILY 08/27/23 08/27/23 [Vitamin B-12] Folic Acid/Vit B Complex and C 0.8 mg PO HS 08/27/23 08/27/23 [Nephro-Karla Tablet] Furosemide [Lasix] 80 mg PO DAILY 08/27/23 08/27/23 Lidocaine-Prilocaine Cream [Emla 1 applic TOPICAL DIRECTED PRN 08/27/23 08/27/23 Cream 2.5%/2.5%] Omeprazole [PriLOSEC] 20 mg PO BID 08/27/23 08/27/23 amLODIPine [Norvasc] 10 mg PO DAILY 08/27/23 08/27/23 hydrALAZINE HCL [Apresoline] 100 mg PO BID 08/27/23 08/27/23 Previous Rx's Medication Instructions Recorded Acetaminophen Tab [Tylenol] 650 mg PO Q4HR PRN tab 01/22/23 Ascorbic Acid [Vitamin C] 500 mg PO DAILY #30 tab 01/22/23 Allergies Allergy/AdvReac Type Severity Reaction Status Date / Time cefuroxime Allergy Rash/Hives Verified 08/27/23 17:44 naproxen [From Naprosyn] Allergy Dyspnea Verified 08/27/23 17:44 blood thinner Allergy "brain Uncoded 08/27/23 17:44 bleed" Review of Systems ROS Statement: Those systems with pertinent positive or pertinent negative responses have been documented in the HPI. ROS Other: All systems not noted in ROS Statement are negative. Constitutional: Denies: fever Eyes: Denies: eye pain ENT: Denies: ear pain Respiratory: Reports: as per HPI, cough, dyspnea Cardiovascular: Reports: edema. Denies: chest pain Endocrine: Denies: fatigue Gastrointestinal: Denies: abdominal pain Musculoskeletal: Denies: back pain Skin: Denies: lesions Past Medical History Past Medical History: Asthma, Cancer, COPD, Dialysis, Hyperlipidemia, Hypertension, Myocardial Infarction ([place]), Osteoarthritis (OA), Pneumonia, Renal Disease, Thyroid Disorder Additional Past Medical History / Comment(s): Hx Uterine cancer 25 yrs ago, hemodialysis Sun, Sun and Sun, varicose veins., "mild heart attack"" "brain bleed twice" chronic diarrhea, hx "14 polyps", "chronic back pain", anemia, current edema kashif feet, diet control diabetic Last Myocardial Infarction Date:: unknown History of Any Multi-Drug Resistant Organisms: None Reported Past Surgical History: Appendectomy, Bariatric Surgery, Cholecystectomy, Hysterectomy, Joint Replacement, Tonsillectomy Additional Past Surgical History / Comment(s): gastric bypass, surgery after fall -fx rt leg and foot, kashif knee replacement, kashif cataracts, surgery x 2 or "brain bleed", fistula for dialysis, COLONOSCOPY, Past Anesthesia/Blood Transfusion Reactions: Family History of Problems w/ Anesthesia Additional Past Anesthesia/Blood Transfusion Reaction / Comment(s): MOTHER PONV Past Psychological History: No Psychological Hx Reported Smoking Status: Former smoker Past Alcohol Use History: None Reported Past Drug Use History: None Reported - Past Family History Mother Family Medical History: Cancer Father Family Medical History: Diabetes Mellitus, Hypertension Sister(s) Family Medical History: Cancer General Exam Limitations: no limitations General appearance: alert, in no apparent distress Head exam: Present: normocephalic Eye exam: Present: normal appearance Neck exam: Present: normal inspection Respiratory exam: Present: decreased breath sounds Cardiovascular Exam: Present: regular rate, normal rhythm GI/Abdominal exam: Present: soft. Absent: tenderness Extremities exam: Present: pedal edema. Absent: calf tenderness Back exam: Present: normal inspection Neurological exam: Present: alert Psychiatric exam: Present: normal affect, normal mood Skin exam: Present: normal color Course Vital Signs 08/27/23 08/27/23 08/27/23 15:26 15:32 15:41 Temperature 98.2 F Pulse Rate 67 Respiratory 18 15 Rate Blood Pressure 148/53 O2 Sat by Pulse 100 Oximetry 08/27/23 08/27/23 08/27/23 16:19 16:29 16:32 Temperature Pulse Rate 70 74 80 Respiratory 18 Rate Blood Pressure 155/89 O2 Sat by Pulse 97 Oximetry EKG Findings - EKG Results: EKG: interpreted by ERMD (Left axis. PVC present. Septal Q waves. Artifact present.), sinus rhythm, normal ST/T Medical Decision Making - Medical Decision Making Was pt. sent in by a medical professional or institution (, PA, HOSE CEMENTER, urgent care, hospital, or fdc...) When possible be specific @ -Patient was sent from urgent care Did you speak to anyone other than the patient for history (EMS, parent, family, police, friend...)? What history was obtained from this source @ -No Did you review nursing and triage notes (agree or disagree)? Why? @ -I reviewed and agree with nursing and triage notes Were old charts reviewed (outside hosp., previous admission, EMS record, old EKG, old radiological studies, urgent care reports/EKG's, fdc records)? Report findings @ -No old charts were reviewed Differential Diagnosis (chest pain, altered mental status, abdominal pain women, abdominal pain men, vaginal bleeding, weakness, fever, dyspnea, syncope, heada kassandra, dizziness, GI bleed, back pain, seizure, CVA, palpatations, mental health, musculoskeletal)? @ -Differential Dyspnea: Coronary syndrome, arrhythmia, tamponade, asthma, COPD, pulmonary embolism, pneumonia, pneumothorax, pulmonary effusion, anaphylaxis, diabetic ketoacidosis, flailed chest, pulmonary contusion, diaphragmatic rupture, anemia, neuromuscular, this is not meant to be an all-inclusive list. EKG interpreted by me (3pts min.). @ -As above X-rays interpreted by me (1pt min.). @ -Chest x-ray shows no acute process CT interpreted by me (1pt min.). @ -None done U/S interpreted by me (1pt. min.). @ -None done What testing was considered but not performed or refused? (CT, X-rays, U/S, labs)? Why? @ -None What meds were considered but not given or refused? Why? @ -None Did you discuss the management of the patient with other professionals (professionals i.e. , PA, HOSE CEMENTER, lab, RT, psych nurse, licensed master social worker, farm marketer, teacher, chief innovation officer, case resource manager)? Give summary @ -Case was discussed with Dr. Mckeon, will admit covering Dr. Panchal, who admits for Dr. Rizvi Was smoking cessation discussed for >3mins.? @ -No Was critical care preformed (if so, how long)? @ -No Were there social determinants of health that impacted care today? How? (Homelessness, low income, unemployed, alcoholism, drug addiction, transportation, low edu. Level, literacy, decrease access to med. care, care home, rehab)? @ -No Was there de-escalation of care discussed even if they declined (Discuss DNR or withdrawal of care, Hospice)? DNR status @ -No What co-morbidities impacted this encounter? (DM, HTN, Smoking, COPD, CAD, Cancer, CVA, ARF, Chemo, Hep., AIDS, mental health diagnosis, sleep apnea, morbid obesity)? @ -None Was patient admitted / discharged? Hospital course, mention meds given and route, prescriptions, significant lab abnormalities, going to OR and other pertinent info. @ -Patient presents with dyspnea, exertional dyspnea and edema. Clinical concern for CHF. BNP elevated. Patient will be admitted with cardiac consult. Admission orders written. Undiagnosed new problem with uncertain prognosis? @ -No Drug Therapy requiring intensive monitoring for toxicity (Heparin, Nitro, Insulin, Cardizem)? @ -No Were any procedures done? @ -No Diagnosis/symptom? @ -CHF Acute, or Chronic, or Acute on Chronic? @ -Acute Uncomplicated (without systemic symptoms) or Complicated (systemic symptoms)? @ -Default Side effects of treatment? @ -No Exacerbation, Progression, or Severe Exacerbation? @ -No Poses a threat to life or bodily function? How? (Chest pain, [place], [place], pneumonia, PE, COPD, DKA, ARF, appy, cholecystitis, CVA, Diverticulitis, Homicidal, Suicidal, threat to staff... and all critical care pts) @ -Risk to cardiac function - Lab Data Result diagrams: 08/27/23 15:46 08/27/23 15:46 Lab Results 08/27/23 08/27/23 08/27/23 Range/Units 15:46 15:46 15:46 WBC 5.3 (3.8-10.6) k/uL RBC 3.02 L (3.80-5.40) m/uL Hgb 9.9 L (11.4-16.0) gm/dL Hct 31.3 L (34.0-46.0) % MCV 103.5 H (80.0-100.0) fL MCH 32.6 (25.0-35.0) pg MCHC 31.5 (31.0-37.0) g/dL RDW 13.7 (11.5-15.5) % Plt Count 200 (150-450) k/uL MPV 7.9 Neutrophils % 65 % Lymphocytes % 24 % Monocytes % 6 % Eosinophils % 2 % Basophils % 0 % Neutrophils # 3.5 (1.3-7.7) k/uL Lymphocytes # 1.3 (1.0-4.8) k/uL Monocytes # 0.3 (0-1.0) k/uL Eosinophils # 0.1 (0-0.7) k/uL Basophils # 0.0 (0-0.2) k/uL Macrocytosis Slight PT 10.1 (10.0-12.5) sec INR 0.9 (<1.2) APTT 22.9 (22.0-30.0) sec Sodium 138 (137-145) mmol/L Potassium 3.3 L (3.5-5.1) mmol/L Chloride 101 (98-107) mmol/L Carbon Dioxide 31 H (22-30) mmol/L Anion Gap 6 mmol/L BUN 24 H (7-17) mg/dL Creatinine 3.05 H (0.52-1.04) mg/dL Est GFR (CKD-EPI)AfAm 16 (>60 ml/min/1.73 sqM) Est GFR (CKD-EPI)NonAf 14 (>60 ml/min/1.73 sqM) Glucose 103 H (74-99) mg/dL Plasma Lactic Acid Tulio (0.7-2.0) mmol/L Calcium 8.5 (8.4-10.2) mg/dL Magnesium 1.9 (1.6-2.3) mg/dL Total Bilirubin 0.7 (0.2-1.3) mg/dL AST 36 (14-36) U/L ALT 20 (4-34) U/L Alkaline Phosphatase 287 H (38-126) U/L Troponin I (0.000-0.034) ng/mL NT-Pro-B Natriuret Pep 35607 pg/mL Total Protein 6.3 (6.3-8.2) g/dL Albumin 3.5 (3.5-5.0) g/dL 08/27/23 08/27/23 Range/Units 15:46 15:46 WBC (3.8-10.6) k/uL RBC (3.80-5.40) m/uL Hgb (11.4-16.0) gm/dL Hct (34.0-46.0) % MCV (80.0-100.0) fL MCH (25.0-35.0) pg MCHC (31.0-37.0) g/dL RDW (11.5-15.5) % Plt Count (150-450) k/uL MPV Neutrophils % % Lymphocytes % % Monocytes % % Eosinophils % % Basophils % % Neutrophils # (1.3-7.7) k/uL Lymphocytes # (1.0-4.8) k/uL Monocytes # (0-1.0) k/uL Eosinophils # (0-0.7) k/uL Basophils # (0-0.2) k/uL Macrocytosis PT (10.0-12.5) sec INR (<1.2) APTT (22.0-30.0) sec Sodium (137-145) mmol/L Potassium (3.5-5.1) mmol/L Chloride (98-107) mmol/L Carbon Dioxide (22-30) mmol/L Anion Gap mmol/L BUN (7-17) mg/dL Creatinine (0.52-1.04) mg/dL Est GFR (CKD-EPI)AfAm (>60 ml/min/1.73 sqM) Est GFR (CKD-EPI)NonAf (>60 ml/min/1.73 sqM) Glucose (74-99) mg/dL Plasma Lactic Acid Tulio 1.1 (0.7-2.0) mmol/L Calcium (8.4-10.2) mg/dL Magnesium (1.6-2.3) mg/dL Total Bilirubin (0.2-1.3) mg/dL AST (14-36) U/L ALT (4-34) U/L Alkaline Phosphatase (38-126) U/L Troponin I <0.012 (0.000-0.034) ng/mL NT-Pro-B Natriuret Pep pg/mL Total Protein (6.3-8.2) g/dL Albumin (3.5-5.0) g/dL Disposition Clinical Impression: Congestive heart failure Disposition: ADMITTED IP TO THIS HOSP Is patient prescribed a controlled substance at d/c from ED?: No Referrals: Gautam Rizvi DO [Primary Care Provider] - 1-2 days Time of Disposition: 18:40
[2023-08-27 16:01] LABS: Basophils % (A) 0 %; Eosinophils # (A) 0.1 k/uL (0-0.7); Eosinophils % (A) 2 %; HCT 31.3 % (34.0-46.0); HGB 9.9 gm/dL (11.4-16.0); Lymphocytes # (A) 1.3 k/uL (1.0-4.8); Lymphocytes % (A) 24 %; MCH 32.6 pg (25.0-35.0); MCHC 31.5 g/dL (31.0-37.0); MCV 103.5 fL (80.0-100.0); Macrocytosis Slight; Mean Platelet Volume 7.9; Monocytes # (A) 0.3 k/uL (0-1.0); Monocytes % (A) 6 %; Neutrophils # (A) 3.5 k/uL (1.3-7.7); Neutrophils % (A) 65 %; Platelet Count 200 k/uL (150-450); RBC 3.02 m/uL (3.80-5.40); RDW 13.7 % (11.5-15.5); WBC 5.3 k/uL (3.8-10.6)
--- NOTE | 2023-08-27 16:09 | XR ---
EXAMINATION TYPE: XR chest 2V DATE OF EXAM: 08/27/2023 COMPARISON: 01/17/2023 HISTORY: Shortness of breath TECHNIQUE: Frontal and lateral views of the chest are obtained. FINDINGS: Scattered senescent parenchymal changes noted. No evidence for infiltrate. No evidence for atelectasis. Heart size is stable. Mediastinal structures are stable and grossly unremarkable. No evidence for hilar prominence. Degenerative changes dorsal spine. IMPRESSION: 1. No evidence for acute pulmonary disease.
[2023-08-27 16:16] LABS: INR 0.9 (<1.2); Partial Thromboplastin Time 22.9 sec (22.0-30.0); Prothrombin Time 10.1 sec (10.0-12.5)
[2023-08-27] MEDS: IPRATROPIUM-ALBUTEROL 3 ML NEB INHALATION STA (16:18)
[2023-08-27 16:43] LABS: ALT 20 U/L (4-34); AST 36 U/L (14-36); African American GFR (CKD) 16 (>60 ml/min/1.73 sqM); Albumin 3.5 g/dL (3.5-5.0); Alkaline Phosphatase 287 U/L (38-126); Anion Gap 6 mmol/L; Blood Urea Nitrogen 24 mg/dL (7-17); Calcium 8.5 mg/dL (8.4-10.2); Carbon Dioxide 31 mmol/L (22-30); Chloride 101 mmol/L (98-107); Glucose 103 mg/dL (74-99); Magnesium 1.9 mg/dL (1.6-2.3); Non-African American GFR(CKD) 14 (>60 ml/min/1.73 sqM); Potassium 3.3 mmol/L (3.5-5.1); Sodium 138 mmol/L (137-145); Total Bilirubin 0.7 mg/dL (0.2-1.3); Total Protein 6.3 g/dL (6.3-8.2)
[2023-08-27 16:50] LABS: NT-Pro-B-Type Natriuretic Pept 11000 pg/mL
[2023-08-27] MEDS ORDERED: ACETAMINOPHEN TAB 325 MG TAB PO PRN (18:35)
[2023-08-27] MEDS ORDERED: NON FORMULARY DRUG (Albuterol Inhaler 90 MCG Puff) INHALATION PRN (18:35)
[2023-08-27] MEDS: FUROSEMIDE 10 MG/ML 4 ML VIAL IV SCH (19:01)
[2023-08-27] MEDS: ASPIRIN 325 MG TAB PO STA (19:01)
[2023-08-27] MEDS: NITROGLYCERIN OINT 1 INCH/GM PACKET TOPICAL SCH (19:38)
[2023-08-27] MEDS: FOLIC ACID-VIT B COMPLEX-VIT C 1 CAP PO SCH (20:16)
[2023-08-27] MEDS: ATORVASTATIN 20 MG TAB PO SCH (20:16)
[2023-08-27] MEDS: hydrALAZINE HCL 50 MG TAB PO SCH (20:16)
[2023-08-27] MEDS: METOPROLOL TARTRATE 50 MG TAB PO SCH (20:17)
[2023-08-27] MEDS: oxyCODONE-APAP 10-325MG 1 EACH TAB PO PRN (20:21)
[2023-08-28] MEDS: LEVOTHYROXINE 112 MCG TAB PO SCH (06:26)
[2023-08-28] MEDS: CALCIUM ACETATE 667 MG TAB PO SCH (06:26)
[2023-08-28] MEDS: PANTOPRAZOLE 40 MG TABLET PO SCH (06:26)
[2023-08-28] MEDS: ALBUTEROL NEBULIZED 2.5 MG/3 ML INHALATION PRN (08:12)
[2023-08-28] MEDS: amLODIPine 10 MG TAB PO SCH (09:16)
[2023-08-28] MEDS: CYANOCOBALAMIN 500 MCG TAB PO SCH (09:17)
[2023-08-28] MEDS: ASPIRIN 325 MG TAB PO SCH (09:17)
[2023-08-28] MEDS: lisinopriL 20 MG TAB PO SCH (09:17)
[2023-08-28] MEDS: ASCORBIC ACID 500 MG TAB PO SCH (09:17)
[2023-08-28 11:42] VITALS: BMI 39.8
--- NOTE | 2023-08-28 12:40 | P.CRDCN ---
History of Present Illness History of present illness: HISTORY OF PRESENT ILLNESS: This is a 77-year-old female with a past medical history significant for end- stage renal disease on hemodialysis, hypertension, hyperlipidemia, diabetes, asthma, former nicotine dependence, and morbid obesity. Patient follows in the office with Dr. Tran. We have been asked to see the patient in consultation for congestive heart failure. patient states she was at dialysis yesterday when she had acute onset of shortness breath and not been able to catch her breath. She denies any chest pain or pressure. Denies any recent fevers, chills, nausea. She denies missing any dialysis treatments. Chest x-ray performed which shows no acute cardiopulmonary processes. She does have some orthopnea and feels worse lying down. She states she has not had a stress test recently and cannot tolerate stress test. she does still make some urine and was placed on IV Lasix 40 mg daily 8 hours. EKG shows sinus rhythm with PACs and occasional PVCs, left axis deviation, nonspecific ST depressions. REVIEW OF SYSTEMS: At the time of my exam: CONSTITUTIONAL: Denies fever or chills. HEENT: Denies blurred vision, vision changes, or eye pain. Denies hemoptysis CARDIOVASCULAR: Denies chest pain. +orthopnea. Denies PND. Denies palpitations RESPIRATORY: +shortness of breath. GASTROINTESTINAL: Denies abdominal pain. Denies nausea or vomiting. HEMATOLOGIC: Denies bleeding disorders. GENITOURINARY: Denies any blood in urine. SKIN: Denies pruitis. Denies rash. PHYSICAL EXAM: VITAL SIGNS: Reviewed. GENERAL: Well-developed in no acute distress. HEENT: Head is normocephalic. Pupils are equal, round. Sclerae anicteric. Mucous membranes of the mouth are moist. Neck supple. No JVD or thyromegaly LUNGS: Respirations even and unlabored. Lungs essentially clear to auscultation bilaterally but diminished. HEART: Regular rate and rhythm. S1 and S2 heard. Systolic murmur noted. ABDOMEN: Soft. Nondistended. Nontender. EXTREMITIES: Normal range of motion. No clubbing or cyanosis. Peripheral pulses intact. 2-3+ bilateral lower extremity edema with evidence of cellulitis of the right lower extremity NEUROLOGIC: Awake and alert. Oriented x 3. ASSESSMENT: Shortness of breath Acute on chronic heart failure with preserved ejection fraction, 55-60% End-stage renal disease on hemodialysis Hypertension Hyperlipidemia Diabetes Asthma Former nicotine dependence Morbid obesity PLAN: most of symptoms appear related to heart failure and fluid overload. She is orthopneic and monitor response of diuresis and hemodialysis. If still having significant symptoms may consider ischemic workup however has not been able to tolerate stress test in the past and if still having symptoms may consider heart catheterization. Trial of Nitro-Dur to see if this helps with any angina as well as heart failure. Further recommendations to follow. Past Medical History Past Medical History: Asthma, Cancer, COPD, Dialysis, Hyperlipidemia, Hypertension, Myocardial Infarction ([place]), Osteoarthritis ([place]), Pneumonia, Renal Disease, Thyroid Disorder Additional Past Medical History / Comment(s): Hx Uterine cancer 25 yrs ago, hemodialysis Sun, Sun and Sun, varicose veins., "mild heart attack"" "brain bl eed twice" chronic diarrhea, hx "18 polyps", "chronic back pain", anemia, current edema kashif feet, diet control diabetic Last Myocardial Infarction Date:: unknown History of Any Multi-Drug Resistant Organisms: None Reported Past Surgical History: Appendectomy, Bariatric Surgery, Cholecystectomy, Hysterectomy, Joint Replacement, Tonsillectomy Additional Past Surgical History / Comment(s): gastric bypass, surgery after fall -fx rt leg and foot, kashif knee replacement, kashif cataracts, surgery x 2 or "b rain bleed", fistula for dialysis, COLONOSCOPY, Past Anesthesia/Blood Transfusion Reactions: Family History of Problems w/ Anesthesia Additional Past Anesthesia/Blood Transfusion Reaction / Comment(s): MOTHER PONV Past Psychological History: No Psychological Hx Reported Smoking Status: Former smoker Past Alcohol Use History: None Reported Additional Past Alcohol Use History / Comment(s): Quit smoking 30+ yrs ago. Past Drug Use History: None Reported - Past Family History Mother Family Medical History: Cancer Father Family Medical History: Diabetes Mellitus, Hypertension Sister(s) Family Medical History: Cancer Medications and Allergies Home Medications Medication Instructions Recorded Confirmed Type Levothyroxine Sodium [Synthroid] 112 mcg PO AC-BRKFST 03/18/19 08/27/23 History Rosuvastatin Calcium [Crestor] 10 mg PO HS 03/18/19 08/27/23 History Calcium Acetate 1,334 mg PO TID-W/MEALS 12/22/19 08/27/23 History Metoprolol Tartrate [Lopressor] 50 mg PO BID 12/22/19 08/27/23 History oxyCODONE-APAP 10-325MG [Percocet 1 tab PO TID PRN 02/18/22 08/27/23 History 10-325 mg] Albuterol Inhaler [Ventolin Hfa 2 puff INHALATION RT-QID PRN 06/15/22 08/27/23 History Inhaler] Albuterol Nebulized [Ventolin 2.5 mg INHALATION RT-QID PRN 06/15/22 08/27/23 History Nebulized] lisinopriL 40 mg PO DAILY 01/17/23 08/27/23 History Acetaminophen Tab [Tylenol] 650 mg PO Q4HR PRN tab 01/22/23 08/27/23 Rx Ascorbic Acid [Vitamin C] 500 mg PO DAILY #30 tab 01/22/23 08/27/23 Rx Cyanocobalamin (Vitamin B-12) 1,000 mcg PO DAILY 08/27/23 08/27/23 History [Vitamin B-12] Folic Acid/Vit B Complex and C 0.8 mg PO HS 08/27/23 08/27/23 History [Nephro-Karla Tablet] Furosemide [Lasix] 80 mg PO DAILY 08/27/23 08/27/23 History Lidocaine-Prilocaine Cream [Emla 1 applic TOPICAL DIRECTED PRN 08/27/23 08/27/23 History Cream 2.5%/2.5%] Omeprazole [PriLOSEC] 20 mg PO BID 08/27/23 08/27/23 History amLODIPine [Norvasc] 10 mg PO DAILY 08/27/23 08/27/23 History hydrALAZINE HCL [Apresoline] 100 mg PO BID 08/27/23 08/27/23 History Allergies Allergy/AdvReac Type Severity Reaction Status Date / Time cefuroxime Allergy Rash/Hives Verified 08/27/23 17:44 naproxen [From Naprosyn] Allergy Dyspnea Verified 08/27/23 17:44 blood thinner Allergy "brain Uncoded 08/27/23 17:44 bleed" Physical Exam Vitals: Vital Signs Temp Pulse Pulse Resp BP BP Pulse Ox 08/28/23 11:37 80 08/28/23 11:28 76 08/28/23 08:23 74 08/28/23 08:15 70 94 L 08/28/23 07:00 98.5 F 83 19 172/67 93 L 08/28/23 03:12 66 18 92 L 08/28/23 02:00 97.9 F 69 18 171/77 98 08/28/23 01:37 98.1 F 66 16 152/73 96 08/27/23 23:18 68 18 157/69 93 L 08/27/23 19:24 81 19 127/49 96 08/27/23 19:02 81 16 136/52 97 08/27/23 16:32 80 18 155/89 97 08/27/23 16:29 74 08/27/23 16:19 70 08/27/23 15:41 15 08/27/23 15:32 98.2 F 08/27/23 15:26 67 18 148/53 100 Intake and Output 08/27/23 08/28/23 08/28/23 22:59 06:59 14:59 Intake Total 0 Balance 0 Intake: Oral 0 Other: Weight 102.058 kg 102.058 kg 102.058 kg Results 08/27/23 15:46 08/27/23 15:46 Cardiac Enzymes 08/27/23 08/27/23 08/27/23 Range/Units 15:46 15:46 19:54 AST 36 (14-36) U/L Troponin I <0.012 <0.012 (0.000-0.034) ng/mL 08/27/23 Range/Units 22:34 AST (14-36) U/L Troponin I <0.012 (0.000-0.034) ng/mL Coagulation 08/27/23 Range/Units 15:46 PT 10.1 (10.0-12.5) sec APTT 22.9 (22.0-30.0) sec CBC 08/27/23 Range/Units 15:46 WBC 5.3 (3.8-10.6) k/uL RBC 3.02 L (3.80-5.40) m/uL Hgb 9.9 L (11.4-16.0) gm/dL Hct 31.3 L (34.0-46.0) % Plt Count 200 (150-450) k/uL Comprehensive Metabolic Panel 08/27/23 Range/Units 15:46 Sodium 138 (137-145) mmol/L Potassium 3.3 L (3.5-5.1) mmol/L Chloride 101 (98-107) mmol/L Carbon Dioxide 31 H (22-30) mmol/L BUN 24 H (7-17) mg/dL Creatinine 3.05 H (0.52-1.04) mg/dL Glucose 103 H (74-99) mg/dL Calcium 8.5 (8.4-10.2) mg/dL AST 36 (14-36) U/L ALT 20 (4-34) U/L Alkaline Phosphatase 287 H (38-126) U/L Total Protein 6.3 (6.3-8.2) g/dL Albumin 3.5 (3.5-5.0) g/dL Current Medications Generic Name Dose Route Start Last Admin Trade Name Freq PRN Reason Stop Dose Admin Acetaminophen 650 mg 08/27/23 18:35 Acetaminophen Tab 325 Mg Tab PO Q4HR PRN Fever>101 Albuterol Sulfate 2.5 mg 08/27/23 18:35 08/28/23 11:27 Albuterol Nebulized 2.5 Mg/3 Ml INHALATION 2.5 mg RT-QID PRN Administration Shortness Of Breath Amlodipine Besylate 10 mg 08/28/23 09:00 08/28/23 09:16 Amlodipine 10 Mg Tab PO 10 mg DAILY WILFREDO Administration Ascorbic Acid 500 mg 08/28/23 09:00 08/28/23 09:17 Ascorbic Acid 500 Mg Tab PO 500 mg DAILY WILFREDO Administration Aspirin 325 mg 08/28/23 09:00 08/28/23 09:17 Aspirin 325 Mg Tab PO 325 mg DAILY WILFREDO Administration Atorvastatin Calcium 20 mg 08/27/23 21:00 08/27/23 20:16 Atorvastatin 20 Mg Tab PO 20 mg HS WILFREDO Administration Calcium Acetate 1,334 mg 08/28/23 07:30 08/28/23 12:11 Calcium Acetate 667 Mg Tab PO 1,334 mg TID-W/MEALS WILFREDO Administration Cyanocobalamin 1,000 mcg 08/28/23 09:00 08/28/23 09:17 Cyanocobalamin 500 Mcg Tab PO 1,000 mcg DAILY WILFREDO Administration Furosemide 40 mg 08/27/23 18:45 08/28/23 09:16 Furosemide 10 Mg/Ml 4 Ml Vial IV 40 mg Q8HR WILFREDO Administration Hydralazine HCl 100 mg 08/27/23 21:00 08/28/23 11:08 Hydralazine Hcl 50 Mg Tab PO 100 mg BID WILFREDO Administration Levothyroxine Sodium 112 mcg 08/28/23 07:30 08/28/23 06:26 Levothyroxine 112 Mcg Tab PO 112 mcg -BRKFST WILFREDO Administration Lisinopril 40 mg 08/28/23 09:00 08/28/23 09:17 Lisinopril 20 Mg Tab PO 40 mg DAILY WILFREDO Administration Metoprolol Tartrate 50 mg 08/27/23 21:00 08/28/23 09:17 Metoprolol Tartrate 50 Mg Tab PO 50 mg BID WILFREDO Administration Multivit/Ca Carb/B Cmplx/FA/Prenat 1 each 08/27/23 21:00 08/27/23 20:16 Folic Acid-Vit B Complex-Vit C 1 Cap PO 1 each HS WILFREDO Administration Nitroglycerin 1 inch 08/27/23 19:00 08/28/23 09:18 Nitroglycerin Oint 1 Inch/Gm Packet TOPICAL Not Given QID WILFREDO Oxycodone/Acetaminophen 1 each 08/27/23 18:35 08/28/23 12:11 Oxycodone-Apap 10-325mg 1 Each Tab PO 1 each TID PRN Administration Pain Pantoprazole Sodium 40 mg 08/28/23 07:30 08/28/23 06:26 Pantoprazole 40 Mg Tablet PO 40 mg -BRKFST WILFREDO Administration Sodium Chloride 10 ml 08/27/23 21:00 08/28/23 09:18 Sodium Chloride 0.9% Flush 10 Ml Syringe IV 10 ml BID WILFREDO Administration Intake and Output 08/27/23 08/28/23 08/28/23 22:59 06:59 14:59 Intake Total 0 Balance 0 Intake: Oral 0 Other: Weight 102.058 kg 102.058 kg 102.058 kg Patient Weight 08/29/23 06:59 Weight 102.058 kg 08/27/23 15:46 08/27/23 15:46
[2023-08-28] MEDS ORDERED: IPRATROPIUM-ALBUTEROL 3 ML NEB INHALATION PRN (12:41)
--- NOTE | 2023-08-28 14:13 | P.NPCON ---
History of Present Illness - Reason for Consult end stage renal disease - History of Present Illness Reason for consultation: End-stage renal disease History of present illness: Patient is a 77-year-old female seen in renal consultation for end-stage renal disease. She is maintained on hemodialysis on Sunday schedule via right upper extremity AV fistula. Patient went to hemodialysis yesterday but the treatment was cut short due to shortness of breath. Patient states shortness of breath is not going on for couple of weeks now. She denies any fever or chills. No cough. No vomiting or diarrhea. She came to the hospital for further evaluation. Chest x-ray showed no acute cardiopulmonary disease. Oral intake has been fair. Patient has history of CVA. Denies chest pain. Tr beckman does make urine. She is currently on IV Lasix. Denies history of coronary disease. No history of diabetes. Vital signs are stable. General: No acute distress. HEENT: Head exam is unremarkable. LUNGS: No audible rhonchi or wheezes. HEART: Rate and Rhythm are regular. ABDOMEN: Nontender. EXTREMITITES: No edema. Past Medical History Past Medical History: Asthma, Cancer, COPD, Dialysis, Hyperlipidemia, Hypertension, Myocardial Infarction ([place]), Osteoarthritis (OA), Pneumonia, Renal Disease, Thyroid Disorder Additional Past Medical History / Comment(s): Hx Uterine cancer 25 yrs ago, hemodialysis Sun, Sun and Sun, varicose veins., "mild heart attack"" "brain bleed twice" chronic diarrhea, hx "18 polyps", "chronic back pain", anemia, current edema kashif feet, diet control diabetic Last Myocardial Infarction Date:: unknown History of Any Multi-Drug Resistant Organisms: None Reported Past Surgical History: Appendectomy, Bariatric Surgery, Cholecystectomy, Hysterectomy, Joint Replacement, Tonsillectomy Additional Past Surgical History / Comment(s): gastric bypass, surgery after fall -fx rt leg and foot, kashif knee replacement, kashif cataracts, surgery x 2 or "brain bleed", fistula for dialysis, COLONOSCOPY, Past Anesthesia/Blood Transfusion Reactions: Family History of Problems w/ Anesthesia Additional Past Anesthesia/Blood Transfusion Reaction / Comment(s): MOTHER PONV Past Psychological History: No Psychological Hx Reported Smoking Status: Former smoker Past Alcohol Use History: None Reported Additional Past Alcohol Use History / Comment(s): Quit smoking 30+ yrs ago. Past Drug Use History: None Reported - Past Family History Mother Family Medical History: Cancer Father Family Medical History: Diabetes Mellitus, Hypertension Sister(s) Family Medical History: Cancer Medications and Allergies Home Medications Medication Instructions Recorded Confirmed Type Levothyroxine Sodium [Synthroid] 112 mcg PO AC-BRKFST 03/18/19 08/27/23 History Rosuvastatin Calcium [Crestor] 10 mg PO HS 03/18/19 08/27/23 History Calcium Acetate 1,334 mg PO TID-W/MEALS 12/22/19 08/27/23 History Metoprolol Tartrate [Lopressor] 50 mg PO BID 12/22/19 08/27/23 History oxyCODONE-APAP 10-325MG [Percocet 1 tab PO TID PRN 02/18/22 08/27/23 History 10-325 mg] Albuterol Inhaler [Ventolin Hfa 2 puff INHALATION RT-QID PRN 06/15/22 08/27/23 History Inhaler] Albuterol Nebulized [Ventolin 2.5 mg INHALATION RT-QID PRN 06/15/22 08/27/23 History Nebulized] lisinopriL 40 mg PO DAILY 01/17/23 08/27/23 History Acetaminophen Tab [Tylenol] 650 mg PO Q4HR PRN tab 01/22/23 08/27/23 Rx Ascorbic Acid [Vitamin C] 500 mg PO DAILY #30 tab 01/22/23 08/27/23 Rx Cyanocobalamin (Vitamin B-12) 1,000 mcg PO DAILY 08/27/23 08/27/23 History [Vitamin B-12] Folic Acid/Vit B Complex and C 0.8 mg PO HS 08/27/23 08/27/23 History [Nephro-Karla Tablet] Furosemide [Lasix] 80 mg PO DAILY 08/27/23 08/27/23 History Lidocaine-Prilocaine Cream [Emla 1 applic TOPICAL DIRECTED PRN 08/27/23 08/27/23 History Cream 2.5%/2.5%] Omeprazole [PriLOSEC] 20 mg PO BID 08/27/23 08/27/23 History amLODIPine [Norvasc] 10 mg PO DAILY 08/27/23 08/27/23 History hydrALAZINE HCL [Apresoline] 100 mg PO BID 08/27/23 08/27/23 History Allergies Allergy/AdvReac Type Severity Reaction Status Date / Time cefuroxime Allergy Rash/Hives Verified 08/27/23 17:44 naproxen [From Naprosyn] Allergy Dyspnea Verified 08/27/23 17:44 blood thinner Allergy "brain Uncoded 08/27/23 17:44 bleed" Physical Exam Vitals: Vital Signs Temp Pulse Pulse Resp BP BP Pulse Ox 08/28/23 11:37 80 08/28/23 11:28 76 08/28/23 08:23 74 08/28/23 08:15 70 94 L 08/28/23 07:00 98.5 F 83 19 172/67 93 L 08/28/23 03:12 66 18 92 L 08/28/23 02:00 97.9 F 69 18 171/77 98 08/28/23 01:37 98.1 F 66 16 152/73 96 08/27/23 23:18 68 18 157/69 93 L 08/27/23 19:24 81 19 127/49 96 08/27/23 19:02 81 16 136/52 97 08/27/23 16:32 80 18 155/89 97 08/27/23 16:29 74 08/27/23 16:19 70 08/27/23 15:41 15 08/27/23 15:32 98.2 F 08/27/23 15:26 67 18 148/53 100 Intake and Output 08/27/23 08/28/23 08/28/23 22:59 06:59 14:59 Intake Total 0 Balance 0 Intake: Oral 0 Other: Weight 102.058 kg 102.058 kg 102.058 kg Results - Lab Results Most recent lab results Calcium 8.5 mg/dL (8.4-10.2) 08/27/23 15:46 Magnesium 1.9 mg/dL (1.6-2.3) 08/27/23 15:46 08/27/23 15:46 08/27/23 15:46 Assessment and Plan Plan: Assessment: 1. End-stage renal disease maintained on hemodialysis on Sunday schedule. 2. Volume overload. 3. Hypertension with chronic kidney disease. 4. Hypokalemia. This was checked shortly after dialysis and will be repeated. 5. Anemia of chronic kidney disease. 6. Chronic kidney disease mineral bone disease. 7. History of hemorrhagic CVA. Plan: Hemodialysis today for 2 hours. Plan for another treatment tomorrow. Challenge UF. Check iron studies. Follow-up echocardiogram. Maintain IV Lasix for now. Thank you for the consultation. I will continue to follow the patient with you during her hospital stay.
[2023-08-28] MEDS: IPRATROPIUM-ALBUTEROL 3 ML NEB INHALATION SCH (15:20)
--- NOTE | 2023-08-28 16:29 | P.HPIM ---
History of Present Illness H&P Date: 08/28/23 History of present illness; 77-year-old female presented to the emergency department with difficulty breathing. Patient states that the ED symptoms began 1 week ago, accompanied by some leg swelling. Symptoms have progressed since that time, patient had gone to her primary care doctor's office in which a chest x-ray was completed. She states that chest x-ray showed "fluid in her lungs". Her past medical history is significant for asthma, COPD, HI and CKD. Patient states that she has a Ventolin inhaler at home, for which she has been out of medication for a little while now however she has not needed a breathing treatment. States that to her memory the last time she needed a breathing tr eatment was approximately 1 year ago. For her CKD she receives dialysis on Mondays, Sunday and Sunday. She presented to the emergency department from her dialysis on Sunday because her oxygen saturations were at 90% on room air. Initial lab work done in the ER showed Hgb of 9.9, Hct of 31.3, potassium of 3.3, BUN of 24, creatinine of 3.05 and alkaline phosphatase of 287. EKG done in the ER showed sinus rhythm with occasional ventricular premature complexes with occasional supraventricular premature complexes and possible anteroseptal myocardial infarction of indeterminate age. Chest x-ray done in the ER showed no evidence of acute pulmonary disease. Patient admitted to internal medicine service REVIEW OF SYSTEMS: CONSTITUTIONAL: No fever, no malaise, no fatigue. HEENT: No recent visual problems or hearing problems. Denied any sore throat. CARDIOVASCULAR: No chest pain, orthopnea, PND, no palpitations, no syncope. PULMONARY: Shortness of breath. GASTROINTESTINAL: No diarrhea, no nausea, no vomiting, no abdominal pain. NEUROLOGICAL: No headaches, no weakness, no numbness. HEMATOLOGICAL: Denies any bleeding or petechiae. GENITOURINARY: Denies any burning micturition, frequency, or urgency. MUSCULOSKELETAL/RHEUMATOLOGICAL: Denies any joint pain, swelling, or any muscle pain. ENDOCRINE: Denies any polyuria or polydipsia. The rest of the 14-point review of systems is negative. PHYSICAL EXAMINATION: GENERAL: The patient is alert and oriented x3, not in any acute distress. Well developed, well nourished. HEENT: Pupils are round and equally reacting to light. EOMI. No scleral icterus. No conjunctival pallor. Normocephalic, atraumatic. No pharyngeal erythema. No thyromegaly. CARDIOVASCULAR: S1 and S2 present. No murmurs, rubs, or gallops. PULMONARY: Chest is clear to auscultation, no wheezing or crackles. ABDOMEN: Soft, nontender, nondistended, normoactive bowel sounds. No palpable organomegaly. MUSCULOSKELETAL: No joint swelling or deformity. EXTREMITIES: No cyanosis, clubbing, or pedal edema. NEUROLOGICAL: Gross neurological examination did not reveal any focal deficits. SKIN: No rashes. Assessment and plan 1. Chronic kidney disease, stage V (end-stage chronic kidney disease) Creatinine 3.05, her baseline has fluctuated between 3 and 5.5 for the last year or so BUN is 24, baseline has fluctuated between 18 and 47.4 over the last year or so GFR less than 15 since June 2022, except for one measure in which her GFR was 17 on 06/17/2022 Patient receives dialysis 3 times weekly; Mondays, Sunday, Sunday Ordered CBC and CMP Hemodialysis today Planning for another hemodialysis treatment tomorrow PhosLo given for bone mineral density 2. Megaloblastic anemia Previously diagnosed vitamin B12 deficiency on 01/21/2023. For which she has been taking cyanocobalamin 1000 mcg PO daily Check iron studies 3. Fluid overload likely as a result of end-stage renal disease vs. CHF Patient still been able to produce some urine, placed on IV Lasix 40 mg daily Shortness of breath was exacerbated in the middle of her dialysis session on 08/26, was unable to complete the entirety of Chest x-ray done in the ER showed no evidence of acute cardiopulmonary disease Shortness of breath treated with Ventolin nebulized at the bedside and Pulmicort 0.5 mg D-dimer is 1.04, completed to assess finding the cause of shortness of breath if not cardiac or chronic kidney disease Chronic medical conditions Hypertension Controlled with Zestril, Norvasc, Lopressor, Apresoline Hyperlipidemia Controlled with rosuvastatin at home, switch to Lipitor in the hospital Hypothyroidism Patient treated with Synthroid GI prophylaxis -Protonix Monitor vital signs Labs and medication were reviewed. Continue with symptomatic treatment. Resume home medication. Monitor labs and vitals. DVT and GI prophylaxis. Further recommendations as per clinical course of the patient Dictation was produced using [employer] dictation software. please excuse any grammatical, word or spelling errors. I saw and evaluated evaluated the patient and was present for major part of physical exam. Patient is admitted secondary to volume overload patient still urinates, patient respiratory status improved with dialysis and IV fluids. Patient will undergo hemodialysis daily. Cardiology evaluated the patient and they are recommending stress test. Patient may have some amount of diastolic dysfunction which may have contributed to her volume overload. Past Medical History Past Medical History: Asthma, Cancer, COPD, Dialysis, Hyperlipidemia, Hypertension, Myocardial Infarction ([place]), Osteoarthritis ([place]), Pneumonia, Renal Disease, Thyroid Disorder Additional Past Medical History / Comment(s): Hx Uterine cancer 25 yrs ago, hemodialysis Sun, Sun and Sun, varicose veins., "mild heart attack"" "brain bleed twice" chronic diarrhea, hx "18 polyps", "chronic back pain", anemia, current edema kashif feet, diet control diabetic Last Myocardial Infarction Date:: unknown History of Any Multi-Drug Resistant Organisms: None Reported Past Surgical History: Appendectomy, Bariatric Surgery, Cholecystectomy, Hysterectomy, Joint Replacement, Tonsillectomy Additional Past Surgical History / Comment(s): gastric bypass, surgery after fall -fx rt leg and foot, kashif knee replacement, kashif cataracts, surgery x 2 or "brain bleed", fistula for dialysis, COLONOSCOPY, Past Anesthesia/Blood Transfusion Reactions: Family History of Problems w/ Anesthesia Additional Past Anesthesia/Blood Transfusion Reaction / Comment(s): MOTHER PONV Past Psychological History: No Psychological Hx Reported Smoking Status: Former smoker Past Alcohol Use History: None Reported Additional Past Alcohol Use History / Comment(s): Quit smoking 30+ yrs ago. Past Drug Use History: None Reported - Past Family History Mother Family Medical History: Cancer Father Family Medical History: Diabetes Mellitus, Hypertension Sister(s) Family Medical History: Cancer Medications and Allergies Home Medications Medication Instructions Recorded Confirmed Type Levothyroxine Sodium [Synthroid] 112 mcg PO AC-BRKFST 03/18/19 08/27/23 History Rosuvastatin Calcium [Crestor] 10 mg PO HS 03/18/19 08/27/23 History Calcium Acetate 1,334 mg PO TID-W/MEALS 12/22/19 08/27/23 History Metoprolol Tartrate [Lopressor] 50 mg PO BID 12/22/19 08/27/23 History oxyCODONE-APAP 10-325MG [Percocet 1 tab PO TID PRN 02/18/22 08/27/23 History 10-325 mg] Albuterol Inhaler [Ventolin Hfa 2 puff INHALATION RT-QID PRN 06/15/22 08/27/23 History Inhaler] Albuterol Nebulized [Ventolin 2.5 mg INHALATION RT-QID PRN 06/15/22 08/27/23 History Nebulized] lisinopriL 40 mg PO DAILY 01/17/23 08/27/23 History Acetaminophen Tab [Tylenol] 650 mg PO Q4HR PRN tab 01/22/23 08/27/23 Rx Ascorbic Acid [Vitamin C] 500 mg PO DAILY #30 tab 01/22/23 08/27/23 Rx Cyanocobalamin (Vitamin B-12) 1,000 mcg PO DAILY 08/27/23 08/27/23 History [Vitamin B-12] Folic Acid/Vit B Complex and C 0.8 mg PO HS 08/27/23 08/27/23 History [Nephro-Karla Tablet] Furosemide [Lasix] 80 mg PO DAILY 08/27/23 08/27/23 History Lidocaine-Prilocaine Cream [Emla 1 applic TOPICAL DIRECTED PRN 08/27/23 08/27/23 History Cream 2.5%/2.5%] Omeprazole [PriLOSEC] 20 mg PO BID 08/27/23 08/27/23 History amLODIPine [Norvasc] 10 mg PO DAILY 08/27/23 08/27/23 History hydrALAZINE HCL [Apresoline] 100 mg PO BID 08/27/23 08/27/23 History Allergies Allergy/AdvReac Type Severity Reaction Status Date / Time cefuroxime Allergy Rash/Hives Verified 08/27/23 17:44 naproxen [From Naprosyn] Allergy Dyspnea Verified 08/27/23 17:44 blood thinner Allergy "brain Uncoded 08/27/23 17:44 bleed" Physical Exam Vitals: Vital Signs Temp Pulse Pulse Resp BP BP Pulse Ox 08/28/23 08:23 74 08/28/23 08:15 70 94 L 08/28/23 03:12 66 18 92 L 08/28/23 02:00 97.9 F 69 18 171/77 98 08/28/23 01:37 98.1 F 66 16 152/73 96 08/27/23 23:18 68 18 157/69 93 L 08/27/23 19:24 81 19 127/49 96 08/27/23 19:02 81 16 136/52 97 08/27/23 16:32 80 18 155/89 97 08/27/23 16:29 74 08/27/23 16:19 70 08/27/23 15:41 15 08/27/23 15:32 98.2 F 08/27/23 15:26 67 18 148/53 100 Intake and Output 08/27/23 08/28/23 08/28/23 22:59 06:59 14:59 Other: Weight 102.058 kg 102.058 kg Results CBC & Chem 7: 08/27/23 15:46 08/27/23 15:46 Labs: Abnormal Lab Results - Last 24 Hours (Table) 08/27/23 08/27/23 Range/Units 15:46 15:46 RBC 3.02 L (3.80-5.40) m/uL Hgb 9.9 L (11.4-16.0) gm/dL Hct 31.3 L (34.0-46.0) % MCV 103.5 H (80.0-100.0) fL Potassium 3.3 L (3.5-5.1) mmol/L Carbon Dioxide 31 H (22-30) mmol/L BUN 24 H (7-17) mg/dL Creatinine 3.05 H (0.52-1.04) mg/dL Glucose 103 H (74-99) mg/dL Alkaline Phosphatase 287 H (38-126) U/L
[2023-08-28] MEDS: BUDESONIDE 0.5 MG/2 ML NEBU INHALATION SCH (20:32)
[2023-08-28 22:52] LABS: % Iron Saturation 37.04 (12.00-45.00)
[2023-08-29] MEDS: ASPIRIN 81 MG PO SCH (09:40)
--- NOTE | 2023-08-29 10:42 | CA ---
Transthoracic Echo Report Name: Barb Mohr Age: 77 Gender: F : 1945 Exam Date: 08/28/2023 14:35 Exam Location: [facility] Ht (in): 63 Wt (lb): 225 Ordering Physician: Pavel Mann DO Attending/Referring Phys: Watch Inspector Diane Nieves RDCS Procedure CPT: Indications: Heart failure Cardiac Hx: Dialysis Technical Quality: Fair Contrast 1: Total Dose (mL): Contrast 2: Total Dose (mL): MEASUREMENTS (Male / Female) Normal Values 2D ECHO LV Diastolic Diameter PLAX 5.3 cm 4.2 - 5.9 / 3.9 - 5.3 cm LV Systolic Diameter PLAX 3.7 cm IVS Diastolic Thickness 1.2 cm 0.6 - 1.0 / 0.6 - 0.9 cm LVPW Diastolic Thickness 1.5 cm 0.6 - 1.0 / 0.6 - 0.9 cm LV Relative Wall Thickness 0.5 RV Internal Dim ED PLAX 2.4 cm LVOT Diameter 1.8 cm LA Systolic Diameter LX 4.7 cm 3.0 - 4.0 / 2.7 - 3.8 cm LV Diastolic Volume MOD BP 98.0 cm??? 67 - 155 / 56 - 104 cm??? LV Systolic Volume MOD BP 33.9 cm??? 22 - 58 / 19 - 49 cm??? LV Ejection Fraction MOD BP 65.4 % >= 55 % LV Cardiac Index MOD BP 2464.3 cm???/min???m??? LV Diastolic Volume MOD 4C 99.4 cm??? LV Systolic Volume MOD 4C 27.5 cm??? LV Ejection Fraction MOD 4C 72.3 % LV Cardiac Index MOD 4C 2765.9 cm???/min???m??? LV Diastolic Length 4C 7.7 cm LV Systolic Length 4C 5.6 cm LV Diastolic Volume MOD 2C 96.5 cm??? LV Systolic Volume MOD 2C 35.6 cm??? LV Ejection Fraction MOD 2C 63.1 % LV Cardiac Index MOD 2C 2342.6 cm???/min???m??? LV Diastolic Length 2C 7.7 cm LV Systolic Length 2C 6.5 cm M-MODE Aortic Root Diameter MM 2.9 cm LA Systolic Diameter MM 4.5 cm LA Ao Ratio MM 1.6 AV Cusp Separation MM 1.2 cm DOPPLER AV Peak Velocity 264.1 cm/s AV Peak Gradient 27.9 mmHg AV Mean Velocity 175.5 cm/s AV Mean Gradient 14.2 mmHg AV Velocity Time Integral 54.6 cm LVOT Peak Velocity 134.6 cm/s LVOT Peak Gradient 7.2 mmHg LVOT Velocity Time Integral 34.3 cm LVOT Stroke Volume 85.9 cm??? LVOT Stroke Volume Index 42.2 ml/m??? LVOT Cardiac Index 3304.8 cm???/min???m??? AV Area Cont Eq vti 1.6 cm??? AV Area Cont Eq pk 1.3 cm??? Mitral E Point Velocity 133.3 cm/s Mitral A Point Velocity 141.9 cm/s Mitral E to A Ratio 0.9 MV Deceleration Time 263.5 ms MV E' Velocity 5.4 cm/s Mitral E to MV E' Ratio 24.5 TR Peak Velocity 290.6 cm/s TR Peak Gradient 33.8 mmHg FINDINGS Left Ventricle Left ventricular ejection fraction is estimated at 55-60 %. Mildly increased septal wall thickness. Moderately increased posterior wall thickness. No obvious regional wall motion abnormalities. Left ventricular cavity size normal. Right Ventricle Normal right ventricular size and function. Right ventricular systolic pressure within normal limits. Right Atrium Mild right atrial dilatation. Left Atrium Moderate to severely increased left atrial diameter. Mitral Valve Structurally normal mitral valve. Mild mitral regurgitation. No mitral stenosis. Aortic Valve Aortic valve not well visualized. Mild aortic stenosis with a peak gradient of 28mmHg and a mean gradient of 14mmHg. No aortic regurgitation. Tricuspid Valve Structurally normal tricuspid valve. Mild tricuspid regurgitation. No tricuspid stenosis. Pulmonic Valve Structurally normal pulmonic valve. No pulmonic stenosis. Trace pulmonic regurgitation. Pericardium No pericardial or pleural effusion. Aorta Normal size aortic root and proximal ascending aorta. CONCLUSIONS Left trigger ejection fraction 55-60% RVSP 34 Moderate to severely dilated left atrium Mild mitral regurgitation Mild aortic stenosis Mild tricuspid regurgitation Previewed by: Dr. Yousif Salter DO (Electronically Signed) Final Date: 29 August 2023 10:42
--- NOTE | 2023-08-29 11:48 | P.PN ---
Subjective Patient is seen in follow-up for end-stage renal disease. She is maintained on hemodialysis on Sunday schedule. Tolerating dialysis well. No active complaints. Vital signs are stable. General: No acute distress. HEENT: Head exam is unremarkable. LUNGS: No audible rhonchi or wheezes. HEART: Rate and Rhythm are regular. ABDOMEN: Obese, nontender. EXTREMITITES: No edema. Objective - Vital Signs Vital signs: Vital Signs Temp 98.4 F 08/29/23 07:00 Pulse 70 08/29/23 11:25 Resp 16 08/29/23 07:00 BP 152/67 08/29/23 07:00 Pulse Ox 99 08/29/23 07:00 FiO2 Intake & Output 08/28/23 08/29/23 08/29/23 18:59 06:59 18:59 Intake Total 920 450 180 Output Total 2400 Balance -1480 450 180 Weight 102.058 kg Intake: Oral 520 450 180 Hemodialysis 400 Output: Hemodialysis 2400 Other: # Voids 2 2 - Labs CBC & Chem 7: 08/27/23 15:46 08/27/23 15:46 Labs: Abnormal Lab Results - Last 24 Hours (Table) 08/27/23 08/28/23 Range/Units 15:46 12:35 D-Dimer 1.04 H (<0.60) mg/L FEU TIBC 216 L (228-460) UG/DL Transferrin 154.0 L (204.0-354.0) mg/dL Ferritin 1731.0 H (10.0-291.0) ng/mL Assessment and Plan Plan: Assessment: 1. End-stage renal disease maintained on hemodialysis on Sunday schedule. 2. Volume overload. Improved with ultrafiltration. 3. Hypertension with chronic kidney disease. 4. Hypokalemia. This was checked shortly after dialysis and will be repeated. 5. Anemia of chronic kidney disease. Iron replete. 6. Chronic kidney disease mineral bone disease. 7. History of hemorrhagic CVA. 8. Chronic diastolic CHF with mild mitral regurgitation, aortic stenosis and tricuspid regurgitation. Plan: Currently seen while undergoing hemodialysis. Challenge UF. Tolerated 2 L ultrafiltration yesterday. Add Aranesp. Stop IV Lasix. Add torsemide 40 mg once daily.
--- NOTE | 2023-08-29 11:49 | P.PN ---
Subjective Progress Note Date: 08/29/23 History of present illness; 77-year-old female presented to the emergency department with difficulty breathing. Patient states that the ED symptoms began 1 week ago, accompanied by some leg swelling. Symptoms have progressed since that time, patient had gone to her primary care doctor's office in which a chest x-ray was completed. She states that chest x-ray showed "fluid in her lungs". Her past medical history is significant for asthma, COPD, AL and CKD. Patient states that she has a Ventolin inhaler at home, for which she has been out of medication for a little while now however she has not needed a breathing treatment. States that to her memory the last time she needed a breathing treatment was approximately 1 year ago. For her CKD she receives dialysis on Mondays, Sunday and Sunday. She presented to the emergency department from her dialysis on Sunday because her oxygen saturations were at 90% on room air. Initial lab work done in the ER showed Hgb of 9.9, Hct of 31.3, potassium of 3.3, BUN of 24, creatinine of 3.05 and alkaline phosphatase of 287. EKG done in the ER showed sinus rhythm with occasional ventricular premature complexes with occasional supraventricular premature complexes and possible anteroseptal myocardial infarction of indeterminate age. Chest x-ray done in the ER showed no evidence of acute pulmonary disease. 08/28 -patient was seen at bedside today. She states she is feeling better today than she was yesterday, still with some difficulties and notes "she is still not right", however she has improved. She received dialysis yesterday, and will be receiving again today. Additionally, she will be undergoing a stress test today. Patient continues to have 2 L on nasal cannula available to her, however when talking with her this morning she was comfortable without utilizing the oxygen. Patient continues to have a good appetite and is able to use the bathroom. She has no current complaints. REVIEW OF SYSTEMS: CONSTITUTIONAL: No fever, no malaise. CARDIOVASCULAR: No chest pain, no palpitations, no syncope, orthopnea present. PULMONARY: Shortness of breath. GASTROINTESTINAL: No diarrhea, no nausea, no vomiting, no abdominal pain. NEUROLOGICAL: No headaches, no weakness, PHYSICAL EXAMINATION: GENERAL: The patient is alert and oriented x3, not in any acute distress. Well developed, well nourished. HEENT: Pupils are round and equally reacting to light. EOMI. No scleral icterus. No conjunctival pallor. Normocephalic, atraumatic. No pharyngeal erythema. No thyromegaly. CARDIOVASCULAR: S1 and S2 present. No murmurs, rubs, or gallops. PULMONARY: Chest is clear to auscultation, no wheezing or crackles, however diminished bilaterally. ABDOMEN: Soft, nontender, nondistended, normoactive bowel sounds. No palpable organomegaly. MUSCULOSKELETAL: No joint swelling or deformity. EXTREMITIES: No cyanosis, clubbing, or pedal edema. NEUROLOGICAL: Gross neurological examination did not reveal any focal deficits. SKIN: No rashes. Assessment and plan 1. Chronic kidney disease, stage V (end-stage chronic kidney disease) Creatinine 3.05, her baseline has fluctuated between 3 and 5.5 for the last year or so BUN is 24, baseline has fluctuated between 18 and 47.4 over the last year or so GFR less than 15 since June 2022, except for one measure in which her GFR was 17 on 06/17/2022 Patient receives dialysis 3 times weekly; Mondays, Sunday, Sunday Ordered CBC and CMP Hemodialysis today Planning for another hemodialysis treatment tomorrow PhosLo given for bone mineral density 2. Megaloblastic anemia Previously diagnosed vitamin B12 deficiency on 01/21/2023. For which she has been taking cyanocobalamin 1000 mcg PO daily Check iron studies 3. Fluid overload likely as a result of end-stage renal disease vs. CHF Patient still been able to produce some urine, placed on IV Lasix 40 mg daily Shortness of breath was exacerbated in the middle of her dialysis session on 08/26, was unable to complete the entirety of Chest x-ray done in the ER showed no evidence of acute cardiopulmonary disease Shortness of breath treated with Ventolin nebulized at the bedside and Pulmicort 0.5 mg D-dimer is 1.04 was tested due to relatively high suspicion of possible pulmonary embolism, however patient is improving saturations following dialysis and Lasix the suspicion for possible pulmonary embolism is much lower. Chronic medical conditions Hypertension Controlled with Zestril, Norvasc, Lopressor, Apresoline Hyperlipidemia Controlled with rosuvastatin at home, switched to Lipitor in the hospital Hypothyroidism Patient treated with Synthroid GI prophylaxis -Protonix Monitor vital signs Monitor CBC Monitor BMP In regards to hypothyroid continue Synthyroid Labs and medication were reviewed. Continue with symptomatic treatment. Resume home medication. Monitor labs and vitals. DVT and GI prophylaxis. Further recommendations as per clinical course of the patient Dictation was produced using [employer] dictation software. please excuse any grammatical, word or spelling errors. Objective - Vital Signs Vital signs: Vital Signs Temp 98.4 F 08/29/23 07:00 Pulse 70 08/29/23 08:19 Resp 16 08/29/23 07:00 BP 152/67 08/29/23 07:00 Pulse Ox 99 08/29/23 07:00 FiO2 Intake & Output 08/28/23 08/29/23 08/29/23 18:59 06:59 18:59 Intake Total 920 450 Output Total 2400 Balance -1480 450 Weight 102.058 kg Intake: Oral 520 450 Hemodialysis 400 Output: Hemodialysis 2400 Other: # Voids 2 2 - Labs CBC & Chem 7: 08/27/23 15:46 08/27/23 15:46 Labs: Abnormal Lab Results - Last 24 Hours (Table) 08/27/23 08/28/23 Range/Units 15:46 12:35 D-Dimer 1.04 H (<0.60) mg/L FEU TIBC 216 L (228-460) UG/DL Transferrin 154.0 L (204.0-354.0) mg/dL Ferritin 1731.0 H (10.0-291.0) ng/mL
--- NOTE | 2023-08-29 12:29 | P.PN ---
Subjective HISTORY OF PRESENT ILLNESS: This is a 77-year-old female with a past medical history significant for end- stage renal disease on hemodialysis, hypertension, hyperlipidemia, diabetes, asthma, former nicotine dependence, and morbid obesity. Patient follows in the office with Dr. Tran. We have been asked to see the patient in consultation for congestive heart failure. patient states she was at dialysis yesterday when she had acute onset of zechariah rtness breath and not been able to catch her breath. She denies any chest pain or pressure. Denies any recent fevers, chills, nausea. She denies missing any dialysis treatments. Chest x-ray performed which shows no acute cardiopulmonary processes. She does have some orthopnea and feels worse lying down. She states she has not had a stress test recently and cannot tolerate stress test. she d oes still make some urine and was placed on IV Lasix 40 mg daily 8 hours. EKG shows sinus rhythm with PACs and occasional PVCs, left axis deviation, nonspecific ST depressions. 08/29/2023 Patient examined this morning at bedside. Patient currently denies chest pain or pressure. She continues to report shortness of breath although improving from yesterday. She is scheduled to undergo hemodialysis today. Vital signs are stable. PHYSICAL EXAM: VITAL SIGNS: Reviewed. GENERAL: Well-developed in no acute distress. NECK: Supple. No JVD or thyromegaly LUNGS: Respirations even and unlabored. Lungs essentially clear to auscultation bilaterally. HEART: Regular rate and rhythm. S1 and S2 heard. Systolic murmur noted. EXTREMITIES: Normal range of motion. No clubbing or cyanosis. Peripheral pulses intact. 2+ bilateral lower extremity edema ASSESSMENT: Shortness of breath Acute on chronic heart failure with preserved ejection fraction, 55-60% End-stage renal disease on hemodialysis Hypertension Hyperlipidemia Diabetes Asthma Former nicotine dependence Morbid obesity History of myocardial infarction, per patient History of CVA, per patient PLAN: Patient has been transitioned to oral diuretics per nephrology Continue additional cardiac medications N.p.o. at midnight Patient to undergo Lexiscan stress test tomorrow Further recommendations pending patient course Nurse practitioner note has been reviewed by physician. Signing provider agrees with the documented findings, assessment, and plan of care documented by DIETETICS TEACHER as a scribe. Objective - Vital Signs Vital signs: Vital Signs Temp 98.4 F 08/29/23 07:00 Pulse 70 08/29/23 11:25 Resp 16 08/29/23 07:00 BP 152/67 08/29/23 07:00 Pulse Ox 99 08/29/23 07:00 FiO2 Intake & Output 08/28/23 08/29/23 08/29/23 18:59 06:59 18:59 Intake Total 920 450 180 Output Total 2400 Balance -1480 450 180 Weight 102.058 kg Intake: Oral 520 450 180 Hemodialysis 400 Output: Hemodialysis 2400 Other: # Voids 2 2 - Labs CBC & Chem 7: 08/27/23 15:46 08/27/23 15:46 Labs: Abnormal Lab Results - Last 24 Hours (Table) 08/27/23 08/28/23 Range/Units 15:46 12:35 D-Dimer 1.04 H (<0.60) mg/L FEU TIBC 216 L (228-460) UG/DL Transferrin 154.0 L (204.0-354.0) mg/dL Ferritin 1731.0 H (10.0-291.0) ng/mL
[2023-08-29] MEDS: DARBEPOETIN ALFA 40 MCG/0.4 ML SYRINGE SQ SCH (14:18)
[2023-08-30 02:47] LABS: Basophils # (A) 0.01 X 10*3/uL (0.00-0.10); Basophils % (A) 0.2 %; Eosinophils % (A) 3.1 %; HCT 29.9 % (37.2-46.3); HGB 9.6 g/dL (12.0-15.0); Lymphocytes # (A) 0.98 X 10*3/uL (0.90-5.00); Lymphocytes % (A) 15.1 %; MCH 33.1 pg (27.0-32.0); MCHC 32.1 g/dL (32.0-37.0); MCV 103.1 FL (80.0-97.0); Mean Platelet Volume 11.6 FL (9.5-12.2); Monocytes # (A) 0.75 X 10*3/uL (0.20-1.00); Monocytes % (A) 11.6 %; NRBC Per 100 WBC 0 X 10*3/uL (0.00-0.01); Neutrophils % (A) 69.5 %; Platelet Count 173 X 10*3/uL (140-440); RDW 13.6 % (11.5-14.5); WBC 6.47 X 10*3/uL (4.50-10.00)
[2023-08-30 05:03] LABS: BUN/Creat Ratio 7.23 Ratio (12.00-20.00); Blood Urea Nitrogen 15.9 mg/dL (9.0-27.0); Calcium 8.5 mg/dL (8.7-10.3); Carbon Dioxide 27.2 mmol/L (21.6-31.8); Chloride 96 mmol/L (96-109); Glucose 125 mg/dL (70-110); Magnesium 1.8 mg/dL (1.5-2.4); Potassium 3.6 mmol/L (3.5-5.5); Sodium 136 mmol/L (135-145)
[2023-08-30] MEDS ORDERED: REGADENOSON 0.4 MG/5 ML SYRINGE IV PRN (06:00)
[2023-08-30] MEDS ORDERED: CAFFEINE CITRATE 60 MG/3 ML VIAL IV PRN (06:00)
[2023-08-30] MEDS ORDERED: AMINOPHYLLINE 500 MG/20 ML VIAL IV PRN (06:00)
--- NOTE | 2023-08-30 12:19 | P.PN ---
Subjective Patient is seen in follow-up for end-stage renal disease. She is maintained on hemodialysis on Sunday schedule. No problems with dialysis yesterday. Tolerated nearly 2 L ultrafiltration yesterday. Vital signs are stable. General: No acute distress. HEENT: Head exam is unremarkable. LUNGS: No audible rhonchi or wheezes. HEART: Rate and Rhythm are regular. ABDOMEN: Obese, nontender. EXTREMITITES: No edema. Objective - Vital Signs Vital signs: Vital Signs Temp 98.2 F 08/30/23 07:00 Pulse 80 08/30/23 08:57 Resp 15 08/30/23 07:00 BP 143/72 08/30/23 07:00 Pulse Ox 97 08/30/23 07:00 FiO2 Intake & Output 08/29/23 08/30/23 08/30/23 18:59 06:59 18:59 Intake Total 934 120 Output Total 1999 Balance -1066 120 Intake: Oral 534 120 Hemodialysis 400 Output: Hemodialysis 1999 Other: Voiding Method Toilet # Voids 3 1 # Bowel Movements 0 - Labs CBC & Chem 7: 08/29/23 16:58 08/29/23 16:58 Labs: Abnormal Lab Results - Last 24 Hours (Table) 08/29/23 08/29/23 Range/Units 16:58 16:58 RBC 2.90 L (4.10-5.20) X 10*6/uL Hgb 9.6 L (12.0-15.0) g/dL Hct 29.9 L (37.2-46.3) % MCV 103.1 H (80.0-97.0) FL MCH 33.1 H (27.0-32.0) pg Anion Gap 12.80 H (4.00-12.00) mmol/L Creatinine 2.2 H (0.6-1.5) mg/dL Est GFR (CKD-EPI) 23 L (>=60) BUN/Creatinine Ratio 7.23 L (12.00-20.00) Ratio Glucose 125 H (70-110) mg/dL Calcium 8.5 L (8.7-10.3) mg/dL Vitamin B12 1178.0 H (200.0-944.0) pg/mL Assessment and Plan Plan: Assessment: 1. End-stage renal disease maintained on hemodialysis on Sunday schedule. 2. Volume overload. Improved with ultrafiltration. 3. Hypertension with chronic kidney disease. Stable. 4. Hypokalemia. This was checked shortly after dialysis. Better today. 5. Anemia of chronic kidney disease. Iron replete. On Aranesp. 6. Chronic kidney disease mineral bone disease. On PhosLo. 7. History of hemorrhagic CVA. 8. Chronic diastolic CHF with mild mitral regurgitation, aortic stenosis and tricuspid regurgitation. Plan: Hemodialysis tomorrow. Maintain torsemide. Stress test today.
[2023-08-30] MEDS: TORSEMIDE 20 MG TAB PO SCH (12:22)
--- NOTE | 2023-08-30 12:39 | NM ---
EXAMINATION TYPE: NM stress lexiscan cardiolite DATE OF EXAM: 08/30/2023 COMPARISON: NONE HISTORY: Chest pain TECHNIQUE: After the intravenous administration of 10.7 mCi Tc 99m Sestamibi - Cardiolite resting SP ECT images acquired 45 minutes post injection. At peak stress 25.4 mCi Tc 99m Sestamibi - Stress images obtained 65 minutes post injection The patient was stressed with 0.4mg Lexiscan. FINDINGS: There is diminished radiotracer accumulation along the inferior wall on both rest and stress images. This appears to be matched. Correlate for prior infarct. Potentially this could be artifact from diap hragm. Wall motion is normal, including the inferior wall Ejection fraction is calculated to be 52 %. IMPRESSION: 1. Defect along the inferior wall. Artifact is favored. Prior infarct could be considered. 2. No stress-induced ischemic changes.
--- NOTE | 2023-08-30 12:53 | CA ---
Lexiscan Nuclear Stress Test Report Name: Barb Mohr Exam Date: 08/30/2023 10:15 Exam Location: [facility] Stress Ht (in): 63 Wt (lb): 225 BSA: 2.03 Ordering Phys: Marisa Begum Referring Phys: MARISA BEGUM,, Technologist: Toan Muniz Age: 77 Gender: F : 1945 Procedure CPT: Indications: Reflex order-Stress test ICD-10 Codes: Patient History: Medications: SEE LIST Meds past 24 hrs: Pretest Chest Pain: STRESS TEST Lexiscan Protocol Exercise Duration (min:sec): 02:[address] Depressions (mm): Angina Score: High Score: Resting HR (bpm): 66 Peak HR (bpm): 85 Resting BP (mmHg): 134 / 57 Peak BP (mmHg): 122 / 50 MPHR: 143 Target HR: 122 % MPHR: 59 METS: 1.0 Total Dose: Peak Dose: Atropine: Double Product: 20079 BP Response: Stress Termination: PROTOCOL COMPLETE Stress Symptoms: NO SYMPTOMS Stress Summary: ECG ANALYSIS Resting ECG: Stress ECG: CONCLUSIONS At baseline EKG showed normal sinus rhythm, normal axis, poor R- wave progression without significant ST or T wave abnormalities. Patient recieved IV infusion of Lexiscan 0.4mg and at peak infusion EKG showed no significant change from baseline. Conclusions: 1. Normal EKG response to Lexiscan infusion 2. Nuclear imaging to be reported separately. Dr. Yousif Salter DO (Electronically Signed) Final Date: 30 August 2023 12:52
--- NOTE | 2023-08-30 12:59 | P.PN ---
Subjective HISTORY OF PRESENT ILLNESS: This is a 77-year-old female with a past medical history significant for end- stage renal disease on hemodialysis, hypertension, hyperlipidemia, diabetes, asthma, former nicotine dependence, and morbid obesity. Patient follows in the office with Dr. Tran. We have been asked to see the patient in consultation for congestive heart failure. patient states she was at dialysis yesterday when she had acute onset of zechariah rtness breath and not been able to catch her breath. She denies any chest pain or pressure. Denies any recent fevers, chills, nausea. She denies missing any dialysis treatments. Chest x-ray performed which shows no acute cardiopulmonary processes. She does have some orthopnea and feels worse lying down. She states she has not had a stress test recently and cannot tolerate stress test. she d oes still make some urine and was placed on IV Lasix 40 mg daily 8 hours. EKG shows sinus rhythm with PACs and occasional PVCs, left axis deviation, nonspecific ST depressions. 08/29/2023 Patient examined this morning at bedside. Patient currently denies chest pain or pressure. She continues to report shortness of breath although improving from yesterday. She is scheduled to undergo hemodialysis today. Vital signs are stable. 08/29 patient seen and examined. Patient denies chest pain or pressure. Still feels short of breath however feeling somewhat better. Scheduled for stress test frederic villatoro. PHYSICAL EXAM: VITAL SIGNS: Reviewed. GENERAL: Well-developed in no acute distress. NECK: Supple. No JVD or thyromegaly LUNGS: Respirations even and unlabored. Lungs essentially clear to auscultation bilaterally. HEART: Regular rate and rhythm. S1 and S2 heard. Systolic murmur noted. EXTREMITIES: Normal range of motion. No clubbing or cyanosis. Peripheral pulses intact. 2+ bilateral lower extremity edema ASSESSMENT: Shortness of breath Acute on chronic heart failure with preserved ejection fraction, 55-60% End-stage renal disease on hemodialysis Hypertension Hyperlipidemia Diabetes Asthma Former nicotine dependence Morbid obesity History of myocardial infarction, per patient History of CVA, per patient PLAN: Await stress test however most of her symptoms are more shortness breath and multifactorial. Continue with current regimen. Dialysis per nephrology. monitor clinical response Objective - Vital Signs Vital signs: Vital Signs Temp 98.2 F 08/30/23 07:00 Pulse 80 07/18/24 08:57 Resp 15 08/30/23 07:00 BP 143/72 08/30/23 07:00 Pulse Ox 97 08/30/23 07:00 FiO2 Intake & Output 08/29/23 08/30/23 08/30/23 18:59 06:59 18:59 Intake Total 934 120 Output Total 1999 Balance -1066 120 Intake: Oral 534 120 Hemodialysis 400 Output: Hemodialysis 1999 Other: Voiding Method Toilet # Voids 3 1 # Bowel Movements 0 - Labs CBC & Chem 7: 08/29/23 16:58 08/29/23 16:58 Labs: Abnormal Lab Results - Last 24 Hours (Table) 08/29/23 08/29/23 Range/Units 16:58 16:58 RBC 2.90 L (4.10-5.20) X 10*6/uL Hgb 9.6 L (12.0-15.0) g/dL Hct 29.9 L (37.2-46.3) % MCV 103.1 H (80.0-97.0) FL MCH 33.1 H (27.0-32.0) pg Anion Gap 12.80 H (4.00-12.00) mmol/L Creatinine 2.2 H (0.6-1.5) mg/dL Est GFR (CKD-EPI) 23 L (>=60) BUN/Creatinine Ratio 7.23 L (12.00-20.00) Ratio Glucose 125 H (70-110) mg/dL Calcium 8.5 L (8.7-10.3) mg/dL Vitamin B12 1178.0 H (200.0-944.0) pg/mL
--- NOTE | 2023-08-30 16:01 | P.PN ---
Subjective Progress Note Date: 08/30/23 History of present illness; 77-year-old female presented to the emergency department with difficulty breathing. Patient states that the ED symptoms began 1 week ago, accompanied by some leg swelling. Symptoms have progressed since that time, patient had gone to her primary care doctor's office in which a chest x-ray was completed. She states that chest x-ray showed "fluid in her lungs". Her past medical history is significant for asthma, COPD, MS and CKD. Patient states that she has a Ventolin inhaler at home, for which she has been out of medication for a little while now however she has not needed a breathing treatment. States that to her memory the last time she needed a breathing treatment was approximately 1 year ago. For her CKD she receives dialysis on Mondays, Sunday and Sunday. She presented to the emergency department from her dialysis on Sunday because her oxygen saturations were at 90% on room air. Initial lab work done in the ER showed Hgb of 9.9, Hct of 31.3, potassium of 3.3, BUN of 24, creatinine of 3.05 and alkaline phosphatase of 287. EKG done in the ER showed sinus rhythm with occasional ventricular premature complexes with occasional supraventricular premature complexes and possible anteroseptal myocardial infarction of indeterminate age. Chest x-ray done in the ER showed no evidence of acute pulmonary disease. 08/28 -patient was seen at bedside today. She states she is feeling better today than she was yesterday, still with some difficulties and notes "she is still not right", however she has improved. She received dialysis yesterday, and will be receiving again today. Additionally, she will be undergoing a stress test today. Patient continues to have 2 L on nasal cannula available to her, however when talking with her this morning she was comfortable without utilizing the oxygen. Patient continues to have a good appetite and is able to use the bathroom. She has no current complaints. 08/29 -patient seen at bedside today following her stress test. She states that she has not been feeling well since she finished, with increased nausea and vomiting around lunchtime. She is continue to feel very tired and overall not great since completing the stress test. Per cardiology stress test was completed and there was normal EKG response to the Lexiscan infusion. Nuclear imaging scan there is a defect along the inferior wall, prior infarct could be considered, the favored thought is that what was found is artifact. There were no stress-induced ischemic changes noted. As a result of how she is feeling following the stress test we will attempt discharge tomorrow when the patient feels more comfortable. REVIEW OF SYSTEMS: CONSTITUTIONAL: No fever, no malaise. CARDIOVASCULAR: No chest pain, no palpitations, no syncope, orthopnea present. PULMONARY: Shortness of breath. GASTROINTESTINAL: No diarrhea, no nausea, no vomiting, no abdominal pain. NEUROLOGICAL: No headaches, no weakness, PHYSICAL EXAMINATION: GENERAL: The patient is alert and oriented x3, not in any acute distress. Well developed, well nourished. HEENT: Pupils are round and equally reacting to light. EOMI. No scleral icterus. No conjunctival pallor. Normocephalic, atraumatic. No pharyngeal erythema. No thyromegaly. CARDIOVASCULAR: S1 and S2 present. No murmurs, rubs, or gallops. PULMONARY: Chest is clear to auscultation, no wheezing or crackles, however diminished bilaterally. ABDOMEN: Soft, nontender, nondistended, normoactive bowel sounds. No palpable organomegaly. MUSCULOSKELETAL: No joint swelling or deformity. EXTREMITIES: No cyanosis, clubbing, or pedal edema. NEUROLOGICAL: Gross neurological examination did not reveal any focal deficits. SKIN: No rashes. Assessment and plan 1. Chronic kidney disease, stage V (end-stage chronic kidney disease) Creatinine 3.05, her baseline has fluctuated between 3 and 5.5 for the last year or so BUN is 24, baseline has fluctuated between 18 and 47.4 over the last year or so GFR less than 15 since June 2022, except for one measure in which her GFR was 17 on 06/17/2022 Patient receives dialysis 3 times weekly; Mondays, Sunday, Sunday Ordered CBC and CMP Hemodialysis today Planning for another hemodialysis treatment tomorrow PhosLo given for bone mineral density Taking Aranesp and Demadex per nephrology 2. Megaloblastic anemia Previously diagnosed vitamin B12 deficiency on 01/21/2023. For which she has been taking cyanocobalamin 1000 mcg PO daily Check iron studies 3. Fluid overload likely as a result of end-stage renal disease vs. CHF Patient still been able to produce some urine, placed on IV Lasix 40 mg daily Shortness of breath was exacerbated in the middle of her dialysis session on 08/26, was unable to complete the entirety of Chest x-ray done in the ER showed no evidence of acute cardiopulmonary disease Shortness of breath treated with Ventolin nebulized at the bedside and Pulmicort 0.5 mg D-dimer is 1.04 was tested due to relatively high suspicion of possible pulmonary embolism, however patient is improving saturations following dialysis and Lasix the suspicion for possible pulmonary embolism is much lower. Cardiac stress test completed today; per cardiology there was normal EKG response to the Lexiscan infusion. Per nuclear medicine, there is a defect along the inferior wall noted possibly artifact as a result of a prior infarct, and no stress-induced ischemic changes were noted. Chronic medical conditions Hypertension Controlled with Zestril, Norvasc, Lopressor, Apresoline Hyperlipidemia Controlled with rosuvastatin at home, switched to Lipitor in the hospital Hypothyroidism Patient treated with Synthroid GI prophylaxis -Protonix Monitor vital signs In regards to hypothyroid continue Synthyroid Labs and medication were reviewed. Continue with symptomatic treatment. Resume home medication. Monitor labs and vitals. DVT and GI prophylaxis. Further recommendations as per clinical course of the patient Dictation was produced using [employer] dictation software. please excuse any grammatical, word or spelling errors. Objective - Vital Signs Vital signs: Vital Signs Temp 98.2 F 08/30/23 07:00 Pulse 80 08/30/23 08:57 Resp 15 08/30/23 07:00 BP 143/72 08/30/23 07:00 Pulse Ox 97 08/30/23 07:00 FiO2 Intake & Output 08/29/23 08/30/23 08/30/23 18:59 06:59 18:59 Intake Total 934 120 Output Total 1999 Balance -1066 120 Intake: Oral 534 120 Hemodialysis 400 Output: Hemodialysis 1999 Other: # Voids 3 1 # Bowel Movements 0 - Labs CBC & Chem 7: 08/29/23 16:58 08/29/23 16:58 Labs: Abnormal Lab Results - Last 24 Hours (Table) 08/29/23 08/29/23 Range/Units 16:58 16:58 RBC 2.90 L (4.10-5.20) X 10*6/uL Hgb 9.6 L (12.0-15.0) g/dL Hct 29.9 L (37.2-46.3) % MCV 103.1 H (80.0-97.0) FL MCH 33.1 H (27.0-32.0) pg Anion Gap 12.80 H (4.00-12.00) mmol/L Creatinine 2.2 H (0.6-1.5) mg/dL Est GFR (CKD-EPI) 23 L (>=60) BUN/Creatinine Ratio 7.23 L (12.00-20.00) Ratio Glucose 125 H (70-110) mg/dL Calcium 8.5 L (8.7-10.3) mg/dL Vitamin B12 1178.0 H (200.0-944.0) pg/mL
[2023-08-31] MEDS: ONDANSETRON 4 MG/2 ML VIAL IVP PRN (08:17)
--- NOTE | 2023-08-31 11:11 | P.PN ---
Subjective HISTORY OF PRESENT ILLNESS: This is a 77-year-old female with a past medical history significant for end- stage renal disease on hemodialysis, hypertension, hyperlipidemia, diabetes, asthma, former nicotine dependence, and morbid obesity. Patient follows in the office with Dr. Tran. We have been asked to see the patient in consultation for congestive heart failure. patient states she was at dialysis yesterday when she had acute onset of zechariah rtness breath and not been able to catch her breath. She denies any chest pain or pressure. Denies any recent fevers, chills, nausea. She denies missing any dialysis treatments. Chest x-ray performed which shows no acute cardiopulmonary processes. She does have some orthopnea and feels worse lying down. She states she has not had a stress test recently and cannot tolerate stress test. she d oes still make some urine and was placed on IV Lasix 40 mg daily 8 hours. EKG shows sinus rhythm with PACs and occasional PVCs, left axis deviation, nonspecific ST depressions. 08/29/2023 Patient examined this morning at bedside. Patient currently denies chest pain or pressure. She continues to report shortness of breath although improving from yesterday. She is scheduled to undergo hemodialysis today. Vital signs are stable. 08/31/2023 Patient examined this point the bedside. She a Lexiscan stress test yesterday which was negative for ischemia. She states she is scheduled to have dialysis this morning. She denies any chest pain or pressure. She denies any shortness of breath. Vital signs are stable. PHYSICAL EXAM: VITAL SIGNS: Reviewed. GENERAL: Well-developed in no acute distress. NECK: Supple. No JVD or thyromegaly LUNGS: Respirations even and unlabored. Lungs essentially clear to auscultation bilaterally. HEART: Regular rate and rhythm. S1 and S2 heard. Systolic murmur noted. EXTREMITIES: Normal range of motion. No clubbing or cyanosis. Peripheral pulses intact. trace bilateral lower extremity edema ASSESSMENT: Shortness of breath Acute on chronic heart failure with preserved ejection fraction, 55-60% End-stage renal disease on hemodialysis Hypertension Hyperlipidemia Diabetes Asthma Former nicotine dependence Morbid obesity History of myocardial infarction, per patient History of CVA, per patient PLAN: continue current cardiac medications Patient is stable for discharge home today from a cardiac standpoint We will sign off. Please reconsult if needed. Nurse practitioner note has been reviewed by physician. Signing provider agrees with the documented findings, assessment, and plan of care documented by JUNIOR COPYWRITER as a scribe. Objective - Vital Signs Vital signs: Vital Signs Temp 98.2 F 08/31/23 08:00 Pulse 76 08/31/23 08:00 Resp 16 08/31/23 08:00 BP 126/65 08/31/23 08:00 Pulse Ox 95 08/31/23 08:00 FiO2 Intake & Output 08/30/23 08/31/23 08/31/23 18:59 06:59 18:59 Intake Total 472 Balance 472 Intake: Oral 472 Other: Voiding Method Toilet Toilet # Voids 0 0 1 # Bowel Movements 0 - Labs CBC & Chem 7: 08/29/23 16:58 08/29/23 16:58
--- NOTE | 2023-08-31 11:52 | P.PN ---
Subjective Patient is seen in follow-up for end-stage renal disease. She is maintained on hemodialysis on Sunday schedule. Tolerating dialysis well. no active complaints at this time. Vital signs are stable. General: No acute distress. HEENT: Head exam is unremarkable. LUNGS: No audible rhonchi or wheezes. HEART: Rate and Rhythm are regular. ABDOMEN: Obese, nontender. EXTREMITITES: No edema. Objective - Vital Signs Vital signs: Vital Signs Temp 98.2 F 08/31/23 08:00 Pulse 76 08/31/23 08:00 Resp 16 08/31/23 08:00 BP 126/65 08/31/23 08:00 Pulse Ox 95 08/31/23 08:00 FiO2 Intake & Output 08/30/23 08/31/23 08/31/23 18:59 06:59 18:59 Intake Total 472 Balance 472 Intake: Oral 472 Other: Voiding Method Toilet Toilet # Voids 0 0 1 # Bowel Movements 0 - Labs CBC & Chem 7: 08/29/23 16:58 08/29/23 16:58 Assessment and Plan Plan: Assessment: 1. End-stage renal disease maintained on hemodialysis on Sunday schedule. 2. Volume overload. Improved with ultrafiltration. 3. Hypertension with chronic kidney disease. Stable. 4. Hypokalemia. This was checked shortly after dialysis. improved. 5. Anemia of chronic kidney disease. Iron replete. On Aranesp. 6. Chronic kidney disease mineral bone disease. On PhosLo. 7. History of hemorrhagic CVA. 8. Chronic diastolic CHF with mild mitral regurgitation, aortic stenosis and tricuspid regurgitation. stress test negative for ischemia this admission. Plan: currently seen while undergoing hemodialysis. Hemodialysis treatment on Sunday. Maintain torsemide. plan for discharge home today.
--- NOTE | 2023-08-31 13:19 | P.DS ---
Providers Date of admission: 08/29/23 14:04 Attending physician: Arian Mckeon Consults: 08/28/23 11:26 Consult Physician Routine Consulting Provider: Holly Tran Consult Reason/Comments: ESRD Do you want consulting provider notified?: Yes Primary care physician: Gautam Cox [facility] Course: 1.Fluid overload likely as a result of end-stage renal disease with volume overload, there may be a competent of chronic diastolic dysfunction with mild acute exacerbation Patient still been able to produce some urine, placed on IV Lasix 40 mg daily Shortness of breath was exacerbated in the middle of her dialysis session on 08/26, was unable to complete the entirety of Chest x-ray done in the ER showed no evidence of acute cardiopulmonary disease Shortness of breath treated with Ventolin nebulized at the bedside and Pulmicort 0.5 mg D-dimer is 1.04 was tested due to relatively high suspicion of possible pulmonary embolism, however patient is improving saturations following dialysis and Lasix the suspicion for possible pulmonary embolism is much lower. Cardiac stress test completed today; per cardiology there was normal EKG response to the Lexiscan infusion. Per nuclear medicine, there is a defect along the inferior wall noted possibly artifact as a result of a prior infarct, and no stress-induced ischemic changes were noted. 2. Megaloblastic anemia Previously diagnosed vitamin B12 deficiency on 01/21/2023. For which she has been taking cyanocobalamin 1000 mcg PO daily Check iron studies 3. Chronic kidney disease, stage V (end-stage chronic kidney disease) Creatinine 3.05, her baseline has fluctuated between 3 and 5.5 for the last year or so BUN is 24, baseline has fluctuated between 18 and 47.4 over the last year or so GFR less than 15 since June 2022, except for one measure in which her GFR was 17 on 06/17/2022 Patient receives dialysis 3 times weekly; Mondays, Sunday, Sunday Ordered CBC and CMP Hemodialysis today Planning for another hemodialysis treatment tomorrow PhosLo given for bone mineral density Taking Aranesp and Demadex per nephrology Chronic medical conditions Hypertension Controlled with Zestril, Norvasc, Lopressor, Apresoline Hyperlipidemia Controlled with rosuvastatin at home, switched to Lipitor in the hospital Hypothyroidism Patient treated with Synthroid GI prophylaxis -Protonix Hospital Course: 77-year-old female presented to the emergency department with difficulty breathing. Patient states that the ED symptoms began 1 week ago, accompanied by some leg swelling. Symptoms have progressed since that time, patient had gone to her primary care doctor's office in which a chest x-ray was completed. She states that chest x-ray showed "fluid in her lungs". Her past medical history is significant for asthma, COPD, ID and CKD. Patient states that she has a Ventolin inhaler at home, for which she has been out of medication for a little while now however she has not needed a breathing treatment. States that to her memory the last time she needed a breathing treatment was approximately 1 year ago. For her CKD she receives dialysis on Mondays, Sunday and Sunday. She presented to the emergency department from her dialysis on Sunday because her oxygen saturations were at 90% on room air. Initial lab work done in the ER showed Hgb of 9.9, Hct of 31.3, potassium of 3.3, BUN of 24, creatinine of 3.05 and alkaline phosphatase of 287. EKG done in the ER showed sinus rhythm with occasional ventricular premature complexes with occasional supraventricular premature complexes and possible anteroseptal myocardial infarction of indeterminate age. Chest x-ray done in the ER showed no evidence of acute pulmonary disease. 08/28 -patient was seen at bedside today. She states she is feeling better today than she was yesterday, still with some difficulties and notes "she is still not right", however she has improved. She received dialysis yesterday, and will be receiving again today. Additionally, she will be undergoing a stress test today. Patient continues to have 2 L on nasal cannula available to her, however when talking with her this morning she was comfortable without utilizing the oxygen. Patient continues to have a good appetite and is able to use the bathroom. She has no current complaints. 08/29 -patient seen at bedside today following her stress test. She states that she has not been feeling well since she finished, with increased nausea and vomiting around lunchtime. She is continue to feel very tired and overall not great since completing the stress test. Per cardiology stress test was completed and there was normal EKG response to the Lexiscan infusion. Nuclear imaging scan there is a defect along the inferior wall, prior infarct could be considered, the favored thought is that what was found is artifact. There were no stress-induced ischemic changes noted. As a result of how she is feeling following the stress test we will attempt discharge tomorrow when the patient feels more comfortable. 08/30 - Patient seen at bedside today. States she is feeling better than yesterday following the stress test. She currently has no complaints. Upon completion of her dialysis today, she can be discharged. Plan - Discharge Summary Discharge Rx Participant: No New Discharge Prescriptions: New Torsemide [Demadex] 40 mg PO DAILY 14 Days #28 tablet Continue Levothyroxine Sodium [Synthroid] 112 mcg PO AC-BRKFST Rosuvastatin Calcium [Crestor] 10 mg PO HS Metoprolol Tartrate [Lopressor] 50 mg PO BID Calcium Acetate 1,334 mg PO TID-W/MEALS oxyCODONE-APAP 10-325MG [Percocet 10-325 mg] 1 tab PO TID PRN PRN Reason: Pain Albuterol Inhaler [Ventolin Hfa Inhaler] 2 puff INHALATION RT-QID PRN PRN Reason: Shortness Of Breath Albuterol Nebulized [Ventolin Nebulized] 2.5 mg INHALATION RT-QID PRN PRN Reason: Shortness Of Breath lisinopriL 40 mg PO DAILY Folic Acid/Vit B Complex and C [Nephro-Karla Tablet] 0.8 mg PO HS hydrALAZINE HCL [Apresoline] 100 mg PO BID Lidocaine-Prilocaine Cream [Emla Cream 2.5%/2.5%] 1 applic TOPICAL DIRECTE D PRN PRN Reason: AVF access Omeprazole [PriLOSEC] 20 mg PO BID amLODIPine [Norvasc] 10 mg PO DAILY Acetaminophen Tab [Tylenol] 650 mg PO Q4HR PRN tab PRN Reason: Fever>101 Ascorbic Acid [Vitamin C] 500 mg PO DAILY #30 tab Cyanocobalamin (Vitamin B-12) [Vitamin B-12] 1,000 mcg PO DAILY Discontinued Furosemide [Lasix] 80 mg PO DAILY Discharge Medication List Levothyroxine Sodium [Synthroid] 112 mcg PO AC-BRKFST 03/18/19 [History] Rosuvastatin Calcium [Crestor] 10 mg PO HS 03/18/19 [History] Calcium Acetate 1,334 mg PO TID-W/MEALS 12/22/19 [History] Metoprolol Tartrate [Lopressor] 50 mg PO BID 12/22/19 [History] oxyCODONE-APAP 10-325MG [Percocet 10-325 mg] 1 tab PO TID PRN 02/18/22 [History] Albuterol Inhaler [Ventolin Hfa Inhaler] 2 puff INHALATION RT-QID PRN 06/15/22 [History] Albuterol Nebulized [Ventolin Nebulized] 2.5 mg INHALATION RT-QID PRN 06/15/22 [History] lisinopriL 40 mg PO DAILY 01/17/23 [History] Acetaminophen Tab [Tylenol] 650 mg PO Q4HR PRN tab 01/22/23 [Rx] Ascorbic Acid [Vitamin C] 500 mg PO DAILY #30 tab 01/22/23 [Rx] Cyanocobalamin (Vitamin B-12) [Vitamin B-12] 1,000 mcg PO DAILY 08/27/23 [History] Folic Acid/Vit B Complex and C [Nephro-Karla Tablet] 0.8 mg PO HS 08/27/23 [History] Lidocaine-Prilocaine Cream [Emla Cream 2.5%/2.5%] 1 applic TOPICAL DIRECTED PRN 08/27/23 [History] Omeprazole [PriLOSEC] 20 mg PO BID 08/27/23 [History] amLODIPine [Norvasc] 10 mg PO DAILY 08/27/23 [History] hydrALAZINE HCL [Apresoline] 100 mg PO BID 08/27/23 [History] Torsemide [Demadex] 40 mg PO DAILY 14 Days #28 tablet 08/31/23 [Rx] Follow up Appointment(s)/Referral(s): Gautam Rizvi DO [Primary Care Provider] - 1-2 days Patient Instructions/Handouts: Heart Failure (DC) Discharge Disposition: HOME SELF-CARE
[2023-08-31 18:19] VITALS: BP 119/56; PULSE 76; RESP 19; TEMP 99
== END 2023-08-31 18:33 | disposition home or self-care (01) | DRG 291 ==
LOC: EC 15:21 → 6NMEDSUR 18:46 → OBSVTOIN 08-29 14:04
PROVIDERS: ADMIT Hospitalist; ATTEND Hospitalist
PROC: 5A1D70Z Performance of Urinary Filtration, Intermittent, Less than 6 Hours Per Day (ICD-10-PCS; principal; 2023-08-28)
DX: I13.2 Hypertensive heart and chronic kidney disease with heart failure and with stage 5 chronic kidney disease, or end stage renal disease (principal); I50.33 Acute on chronic diastolic (congestive) heart failure; N18.6 End stage renal disease; E11.22 Type 2 diabetes mellitus with diabetic chronic kidney disease; Z99.2 Dependence on renal dialysis; E66.01 Morbid (severe) obesity due to excess calories; D53.1 Other megaloblastic anemias, not elsewhere classified; D63.1 Anemia in chronic kidney disease; E03.9 Hypothyroidism, unspecified; J44.89 Other specified chronic obstructive pulmonary disease; I08.3 Combined rheumatic disorders of mitral, aortic and tricuspid valves; E78.5 Hyperlipidemia, unspecified; I49.1 Atrial premature depolarization; I49.3 Ventricular premature depolarization; E87.6 Hypokalemia; M89.8X9 Other specified disorders of bone, unspecified site; Z96.653 Presence of artificial knee joint, bilateral; Z68.39 Body mass index [BMI] 39.0-39.9, adult; I25.2 Old myocardial infarction; Z85.42 Personal history of malignant neoplasm of other parts of uterus; Z86.73 Personal history of transient ischemic attack (TIA), and cerebral infarction without residual deficits; Z98.84 Bariatric surgery status; Z87.891 Personal history of nicotine dependence; Z79.890 Hormone replacement therapy; Z79.899 Other long term (current) drug therapy; Z88.6 Allergy status to analgesic agent; Z88.1 Allergy status to other antibiotic agents; Z88.8 Allergy status to other drugs, medicaments and biological substances
CPT/HCPCS: 36415; 71046; 78452; 80048; 80053; 82607; 82728; 82746; 83540; 83550; 83605; 83735; 83880; 84484; 85025; 85379; 85610; 85730; 90935; 93005; 93017; 93306; 94640; 94760; 96374; 99285

== ENCOUNTER 2023-12-31 15:00 | Observation (INO) | payer MEDICARE, BC, OTHER ==
--- NOTE | 2023-12-31 15:42 | ED ---
General Adult HPI - General Chief complaint: Syncope Stated complaint: Syncope Time Seen by Provider: 12/31/23 15:18 Source: patient, EMS, RN notes reviewed Mode of arrival: EMS - History of Present Illness Initial comments: This is a 78-year-old female with a history of end-stage renal disease on hemodialysis Sunday, Sunday, Sunday, congestive heart failure, and COPD presenting to the emergency department via EMS from dialysis with concern for near syncopal event. Patient states that she underwent hemodialysis earlier today and at the end of her session states that she had "brain fog "patient was asked questions from the dialysis staff and was slow to respond. Currently she is denying shortness of breath, difficulty breathing, abdominal pain, headaches, blurry or double vision, focal neurological deficits. Patient states that yesterday she completed quite a bit of housework feels that she overdid it she has been experiencing diffuse bodyaches after this. - Related Data Home Medications Medication Instructions Recorded Confirmed Calcium Acetate 1,334 mg PO TID-W/MEALS 12/22/19 12/31/23 oxyCODONE-APAP 10-325MG [Percocet 1 tab PO TID PRN 02/18/22 12/31/23 10-325 mg] Albuterol Inhaler [Ventolin Hfa 2 puff INHALATION RT-QID PRN 06/15/22 12/31/23 Inhaler] Albuterol Nebulized [Ventolin 2.5 mg INHALATION RT-QID PRN 06/15/22 12/31/23 Nebulized] lisinopriL 20 mg PO DAILY PRN 01/17/23 12/31/23 Cyanocobalamin (Vitamin B-12) 1,000 mcg PO DAILY 08/27/23 12/31/23 [Vitamin B-12] Folic Acid/Vit B Complex and C 0.8 mg PO HS 08/27/23 12/31/23 [Nephro-Karla Tablet] Lidocaine-Prilocaine Cream [Emla 1 applic TOPICAL DIRECTED PRN 08/27/23 12/31/23 Cream 2.5%/2.5%] Furosemide [Lasix] 80 mg PO DAILY 12/31/23 12/31/23 hydrALAZINE HCL [Apresoline] 50 mg PO BID PRN 12/31/23 12/31/23 predniSONE 10 mg PO DIRECTED 12/31/23 12/31/23 Previous Rx's Medication Instructions Recorded Acetaminophen Tab [Tylenol] 650 mg PO Q4HR PRN tab 01/22/23 Ascorbic Acid [Vitamin C] 500 mg PO DAILY #30 tab 01/22/23 Allergies Allergy/AdvReac Type Severity Reaction Status Date / Time cefuroxime Allergy Rash/Hives Verified 12/31/23 19:59 naproxen [From Naprosyn] Allergy Dyspnea Verified 12/31/23 19:59 blood thinner Allergy "brain Uncoded 12/31/23 19:59 bleed" Review of Systems ROS Statement: Those systems with pertinent positive or pertinent negative responses have been documented in the HPI. ROS Other: All systems not noted in ROS Statement are negative. Past Medical History Past Medical History: Asthma, Cancer, COPD, Dialysis, Hyperlipidemia, Hypertension, Myocardial Infarction (ND), Osteoarthritis (OA), Pneumonia, Renal Disease, Thyroid Disorder Additional Past Medical History / Comment(s): Hx Uterine cancer 25 yrs ago, hemodialysis Mon, Sun and Sun, varicose veins., "mild heart attack"" "brain bleed twice" -> CVA chronic diarrhea, hx "18 polyps", "chronic back pain", anemia, current edema kashif feet, diet control diabetic Last Myocardial Infarction Date:: unknown History of Any Multi-Drug Resistant Organisms: None Reported Past Surgical History: Appendectomy, Bariatric Surgery, Cholecystectomy, Hysterectomy, Joint Replacement, Tonsillectomy Additional Past Surgical History / Comment(s): gastric bypass, surgery after fall -fx rt leg and foot, kashif knee replacement, kashif cataracts, surgery x 2 or "brain bleed", fistula for dialysis, COLONOSCOPY, Past Anesthesia/Blood Transfusion Reactions: Family History of Problems w/ Anesthesia Additional Past Anesthesia/Blood Transfusion Reaction / Comment(s): MOTHER PONV Past Psychological History: No Psychological Hx Reported Smoking Status: Former smoker Past Alcohol Use History: None Reported Past Drug Use History: None Reported - Past Family History Mother Family Medical History: Cancer Father Family Medical History: Diabetes Mellitus, Hypertension Sister(s) Family Medical History: Cancer General Exam General appearance: alert, in no apparent distress Eye exam: Present: normal appearance, PERRL, EOMI. Absent: scleral icterus, conjunctival injection, periorbital swelling ENT exam: Present: normal exam, mucous membranes moist Neck exam: Present: normal inspection. Absent: tenderness, meningismus, lymphadenopathy Respiratory exam: Present: normal lung sounds bilaterally. Absent: respiratory distress, wheezes, rales, rhonchi, stridor Cardiovascular Exam: Present: regular rate, normal rhythm, normal heart sounds. Absent: systolic murmur, diastolic murmur, rubs, gallop, clicks GI/Abdominal exam: Present: soft, normal bowel sounds. Absent: distended, tenderness, guarding, rebound, rigid Extremities exam: Present: normal inspection, full ROM, normal capillary refill, other (bilateral LE edema, 1+ pitting). Absent: tenderness, pedal edema, joint swelling, calf tenderness Back exam: Present: normal inspection Neurological exam: Present: alert, oriented X3, CN II-XII intact Course Vital Signs 12/31/23 12/31/23 12/31/23 15:03 16:01 17:45 Temperature 98.7 F Pulse Rate 87 83 78 Pulse Rate [ Right Supine Pulse Oximetery ] Respiratory 17 18 19 Rate Blood Pressure 113/65 113/65 103/74 Blood Pressure [Right Arm Supine] O2 Sat by Pulse 92 L 95 93 L Oximetry 12/31/23 12/31/23 12/31/23 18:38 19:54 22:53 Temperature 98.1 F 98.3 F Pulse Rate 63 98 91 Pulse Rate [ Right Supine Pulse Oximetery ] Respiratory 19 17 15 Rate Blood Pressure 113/67 128/60 108/59 Blood Pressure [Right Arm Supine] O2 Sat by Pulse 93 L 96 95 Oximetry 01/01/24 01/01/24 01/01/24 00:15 02:00 03:12 Temperature 98.2 F 98.2 F 98.2 F Pulse Rate 88 92 Pulse Rate [ 77 Right Supine Pulse Oximetery ] Respiratory 16 16 17 Rate Blood Pressure 121/61 123/79 Blood Pressure 111/67 [Right Arm Supine] O2 Sat by Pulse 95 96 97 Oximetry Medical Decision Making - Medical Decision Making Was pt. sent in by a medical professional or institution (, PA, FLAKE CUTTER OPERATOR, urgent care, hospital, or longterm...) When possible be specific @ -No Did you speak to anyone other than the patient for history (EMS, parent, family, police, friend...)? What history was obtained from this source @ -No Did you review nursing and triage notes (agree or disagree)? Why? @ -I reviewed and agree with nursing and triage notes Were old charts reviewed (outside hosp., previous admission, EMS record, old EKG, old radiological studies, urgent care reports/EKG's, longterm records)? Report findings @ -CT of the brain without contrast completed on 10/08/2020 revealed a large subdural hematoma along the right lateral convexity measuring up to 2.3 cm with concern for acute hemorrhage causing mass effect with 1.7 cm leftward midline shift and effacement of the right lateral ventricle and third ventricle Differential Diagnosis (chest pain, altered mental status, abdominal pain women, abdominal pain men, vaginal bleeding, weakness, fever, dyspnea, syncope, headache, dizziness, GI bleed, back pain, seizure, CVA, palpatations, mental health, musculoskeletal)? @ -Differential Syncope: Valvular disease, hypertrophic cardiomyopathy, pulmonary embolism, tamponade, tachycardia, bradycardia, ND, hypovolemia, hemorrhage, dissection, anemia, intracranial hemorrhage, seizure, hypoglycemia, carbon monoxide poisoning, this is not meant to be an all-inclusive list. EKG interpreted by me (3pts min.). @ -Completed at 1511 sinus rhythm with a ventricular rate of 83, CO interval 145, QRS 99, QTc 417. Are noted PVCs. X-rays interpreted by me (1pt min.). @ -Chest x-ray no acute cardiopulmonary process or disease CT interpreted by me (1pt min.). @ -CT of the brain without contrast reveals no acute intracranial hemorrhage or midline shift with diffuse age-related cerebral atrophy and chronic small vessel ischemic changes noted U/S interpreted by me (1pt. min.). @ -None done What testing was considered but not performed or refused? (CT, X-rays, U/S, labs)? Why? @ -None What meds were considered but not given or refused? Why? @ -None Did you discuss the management of the patient with other professionals (pr ofessionals i.e. , EMMANUEL, FLAKE CUTTER OPERATOR, lab, RT, psych nurse, social welfare clerk, farm loan representative, teacher, division officer weapons department, oil field caser)? Give summary @ -i spoke with [facility] FLAKE CUTTER OPERATOR, Arleth Deleon, in regard to the patient's presentation who is excepted admission with nephrology and cardiology on consult. Was smoking cessation discussed for >3mins.? @ -No Was critical care preformed (if so, how long)? @ -No Were there social determinants of health that impacted care today? How? (Homelessness, low income, unemployed, alcoholism, drug addiction, transportation, low edu. Level, literacy, decrease access to med. care, alf, rehab)? @ -No Was there de-escalation of care discussed even if they declined (Discuss DNR or withdrawal of care, Hospice)? DNR status @ -No What co-morbidities impacted this encounter? (DM, HTN, Smoking, COPD, CAD, Cancer, CVA, ARF, Chemo, Hep., AIDS, mental health diagnosis, sleep apnea, morbid obesity)? @ -HTN, CKD Was patient admitted / discharged? Hospital course, mention meds given and route, prescriptions, significant lab abnormalities, going to OR and other pertinent info. @ -Admitted. 78-year-old female with near syncope and generalized weakness. Patient's EKG reveals sinus rhythm. Vitals are stable on arrival. Physical exam is remarkable for mild global weakness with no cerebellar ataxia. Patient's workup has been remarkable for elevated BNP level of over 4300, elevated BUN of 24 and creatinine of 2.7 mild acidosis with a CO2 of 35 and chloride 94. Patient has chronic anemia with a hemoglobin 10.[address] of the brain without contrast unremarkable. Chest x-ray no acute process. With concern for near syncopal event and confusion postdialysis patient will be admitted to the hospital for further evaluation nephrology and cardiology on consult. She will be started on home dose of diuretic to control water management. Case discussed with Dr. Mann. Undiagnosed new problem with uncertain prognosis? @ -No Drug Therapy requiring intensive monitoring for toxicity (Heparin, Nitro, Insulin, Cardizem)? @ -No Were any procedures done? @ -No Diagnosis/symptom? @ -near syncope, weakness, elevated BNP/CHF exacerbation Acute, or Chronic, or Acute on Chronic? @ -acute Uncomplicated (without systemic symptoms) or Complicated (systemic symptoms)? @ -complicated Side effects of treatment? @ -No Exacerbation, Progression, or Severe Exacerbation? @ -No Poses a threat to life or bodily function? How? (Chest pain, USA, ND, pneumonia, PE, COPD, DKA, ARF, appy, cholecystitis, CVA, Diverticulitis, Homicidal, Suicidal, threat to staff... and all critical care pts) @ -No - Lab Data Result diagrams: 12/31/23 16:20 01/01/24 05:11 Lab Results 12/31/23 12/31/23 12/31/23 Range/Units 16:20 16:20 16:20 WBC 6.6 (3.8-10.6) k/uL RBC 3.31 L (3.80-5.40) m/uL Hgb 10.7 L (11.4-16.0) gm/dL Hct 33.3 L (34.0-46.0) % MCV 100.7 H (80.0-100.0) fL MCH 32.2 (25.0-35.0) pg MCHC 32.0 (31.0-37.0) g/dL RDW 13.5 (11.5-15.5) % Plt Count 209 (150-450) k/uL MPV 7.9 Neutrophils % 74 % Lymphocytes % 13 % Monocytes % 7 % Eosinophils % 4 % Basophils % 0 % Neutrophils # 4.8 (1.3-7.7) k/uL Lymphocytes # 0.9 L (1.0-4.8) k/uL Monocytes # 0.4 (0-1.0) k/uL Eosinophils # 0.3 (0-0.7) k/uL Basophils # 0.0 (0-0.2) k/uL PT 9.7 L (10.0-12.5) sec INR 0.9 (<1.2) APTT 24.1 (22.0-30.0) sec Sodium 135 L (137-145) mmol/L Potassium 3.8 (3.5-5.1) mmol/L Chloride 94 L (98-107) mmol/L Carbon Dioxide 35 H (22-30) mmol/L Anion Gap 6 mmol/L BUN 24 H (7-17) mg/dL Creatinine 2.70 H (0.52-1.04) mg/dL Est GFR (CKD-EPI)AfAm 19 (>60 ml/min/1.73 sqM) Est GFR (CKD-EPI)NonAf 16 (>60 ml/min/1.73 sqM) Glucose 119 H (74-99) mg/dL Calcium 8.5 (8.4-10.2) mg/dL Phosphorus 3.6 (2.5-4.5) mg/dL Magnesium 1.8 (1.6-2.3) mg/dL Total Bilirubin 0.8 (0.2-1.3) mg/dL AST 40 H (14-36) U/L ALT 27 (4-34) U/L Alkaline Phosphatase 315 H (38-126) U/L NT-Pro-B Natriuret Pep 4330 pg/mL Total Protein 7.0 (6.3-8.2) g/dL Albumin 3.7 (3.5-5.0) g/dL Disposition Clinical Impression: Near syncope, Acute exacerbation of congestive heart failure Disposition: ADMITTED IP TO THIS [facility] Condition: Stable Decision to Admit Reason: Admit from EC Decision Date: 12/31/23 Decision Time: 18:40
[2023-12-31 16:36] LABS: Basophils % (A) 0 %; Eosinophils # (A) 0.3 k/uL (0-0.7); Eosinophils % (A) 4 %; HCT 33.3 % (34.0-46.0); HGB 10.7 gm/dL (11.4-16.0); Lymphocytes # (A) 0.9 k/uL (1.0-4.8); Lymphocytes % (A) 13 %; MCH 32.2 pg (25.0-35.0); MCV 100.7 fL (80.0-100.0); Mean Platelet Volume 7.9; Monocytes # (A) 0.4 k/uL (0-1.0); Monocytes % (A) 7 %; Neutrophils # (A) 4.8 k/uL (1.3-7.7); Neutrophils % (A) 74 %; Platelet Count 209 k/uL (150-450); RBC 3.31 m/uL (3.80-5.40); RDW 13.5 % (11.5-15.5); WBC 6.6 k/uL (3.8-10.6)
[2023-12-31 16:44] LABS: INR 0.9 (<1.2); Partial Thromboplastin Time 24.1 sec (22.0-30.0); Prothrombin Time 9.7 sec (10.0-12.5)
[2023-12-31 16:50] LABS: ALT 27 U/L (4-34); AST 40 U/L (14-36); African American GFR (CKD) 19 (>60 ml/min/1.73 sqM); Albumin 3.7 g/dL (3.5-5.0); Alkaline Phosphatase 315 U/L (38-126); Anion Gap 6 mmol/L; Blood Urea Nitrogen 24 mg/dL (7-17); Calcium 8.5 mg/dL (8.4-10.2); Carbon Dioxide 35 mmol/L (22-30); Chloride 94 mmol/L (98-107); Glucose 119 mg/dL (74-99); Magnesium 1.8 mg/dL (1.6-2.3); Non-African American GFR(CKD) 16 (>60 ml/min/1.73 sqM); Phosphorus 3.6 mg/dL (2.5-4.5); Potassium 3.8 mmol/L (3.5-5.1); Sodium 135 mmol/L (137-145); Total Bilirubin 0.8 mg/dL (0.2-1.3)
[2023-12-31 16:58] LABS: NT-Pro-B-Type Natriuretic Pept 4330 pg/mL
--- NOTE | 2023-12-31 17:13 | XR ---
EXAMINATION TYPE: XR chest 2V DATE OF EXAM: 12/31/2023 CLINICAL HISTORY: Weakness TECHNIQUE: Frontal and lateral views of the chest are obtained. COMPARISON: 08/27/2023 FINDINGS: There is no focal air space opacity, pleural effusion, or pneumothorax seen. Chronic eleva tion right hemidiaphragm. The cardiac silhouette size is within normal limits. The osseous structur es are intact. IMPRESSION: No acute cardiopulmonary process. [facility], , 12/31/2023 5:10 PM
--- NOTE | 2023-12-31 18:02 | CT ---
EXAMINATION TYPE: CT brain wo con DATE OF EXAM: 12/31/2023 COMPARISON: 04/12/2021 CLINICAL INDICATION: Female, 78 years old with history of 'brain fog', forgetfullness, hx CVA; PHH, b rain fog after dialysis TECHNIQUE: CT scan of the head is performed without contrast. CT DLP: 1096.4 mGycm Automated exposure control for dose reduction was used. FINDINGS: There is no acute intracranial hemorrhage or midline shift identified. There is diffuse v entricular and sulcal prominence consistent with diffuse age-related cerebral atrophy. There is low- attenuation in the periventricular white matter consistent with chronic small vessel ischemic change. The globes are intact and the visualized sinuses are clear. Stable right frontal calvarial defect. IMPRESSION: No acute intracranial hemorrhage or midline shift. There is diffuse age-related cerebra l atrophy and chronic small vessel ischemic change noted. [facility], , 12/31/2023 6:00 PM
[2023-12-31] MEDS ORDERED: ACETAMINOPHEN TAB 325 MG TAB PO PRN (18:40)
[2023-12-31] MEDS ORDERED: NALOXONE 0.4 MG/ML 1 ML VIAL IV PRN (18:40)
[2023-12-31] MEDS ORDERED: FUROSEMIDE 10 MG/ML 2 ML VIAL IV SCH (18:45)
[2024-01-01] MEDS: oxyCODONE-APAP 10-325MG 1 EACH TAB PO STA (00:42)
[2024-01-01] MEDS ORDERED: TORSEMIDE 20 MG TAB PO SCH (09:00)
[2024-01-01] MEDS ORDERED: NON FORMULARY DRUG (Albuterol Inhaler 90 MCG Puff) INHALATION PRN (09:03)
[2024-01-01] MEDS ORDERED: ACETAMINOPHEN TAB 325 MG TAB PO PRN (09:03)
[2024-01-01] MEDS ORDERED: predniSONE 10 MG TAB PO SCH (09:15)
[2024-01-01] MEDS: hydrALAZINE HCL 50 MG TAB PO SCH (09:21)
[2024-01-01] MEDS: lisinopriL 20 MG TAB PO SCH (09:21)
[2024-01-01] MEDS: oxyCODONE-APAP 10-325MG 1 EACH TAB PO PRN (09:22)
[2024-01-01] MEDS: METOPROLOL SUCCINATE (ER) 25 MG TAB.ER.24H PO SCH (09:22)
[2024-01-01] MEDS: FUROSEMIDE 80 MG TAB PO SCH (09:22)
[2024-01-01 09:28] LABS: ALT 21 U/L (8-44); AST 28 U/L (13-35); Albumin 3.3 g/dL (3.8-4.9); Albumin/Globulin Ratio 1.22 Ratio (1.60-3.17); Alkaline Phosphatase 279 U/L (41-126); BUN/Creat Ratio 8.44 Ratio (12.00-20.00); Blood Urea Nitrogen 32.9 mg/dL (9.0-27.0); Calcium 8.4 mg/dL (8.7-10.3); Chloride 96 mmol/L (96-109); Globulin 2.7 g/dL (1.6-3.3); Glucose 99 mg/dL (70-110); Potassium 4.2 mmol/L (3.5-5.5); Sodium 138 mmol/L (135-145); Total Bilirubin 0.7 mg/dL (0.3-1.2)
[2024-01-01 10:23] LABS: Basophils # (A) 0.03 X 10*3/uL (0.00-0.10); Basophils % (A) 0.4 %; Eosinophils # (A) 0.27 X 10*3/uL (0.04-0.35); Eosinophils % (A) 3.7 %; HCT 32.8 % (37.2-46.3); HGB 10.2 g/dL (12.0-15.0); Lymphocytes # (A) 1.23 X 10*3/uL (0.90-5.00); Lymphocytes % (A) 17.1 %; MCH 32.2 pg (27.0-32.0); MCHC 31.1 g/dL (32.0-37.0); MCV 103.5 FL (80.0-97.0); Mean Platelet Volume 10.3 FL (9.5-12.2); Monocytes # (A) 0.84 X 10*3/uL (0.20-1.00); Monocytes % (A) 11.7 %; NRBC Per 100 WBC 0 X 10*3/uL (0.00-0.01); Neutrophils # (A) 4.81 X 10*3/uL (1.80-7.70); Neutrophils % (A) 66.7 %; Platelet Count 207 X 10*3/uL (140-440); RBC 3.17 X 10*6/uL (4.10-5.20); RDW 13.7 % (11.5-14.5); WBC 7.21 X 10*3/uL (4.50-10.00)
--- NOTE | 2024-01-01 10:33 | P.CRDCN ---
History of Present Illness History of present illness: HISTORY OF PRESENT ILLNESS: This is a 78-year-old female with a past medical history significant for end- stage renal disease on hemodialysis, congestive heart failure, hypertension, hyperlipidemia, diabetes, mild aortic stenosis, former nicotine dependence, obesity, and CVA with residual memory issues. Patient follows in the office with Dr. Salter. We have been asked to see the patient in consultation for CHF exacerbation. Patient examined at the bedside. Patient states that towards the end of her dialysis session yesterday she began to get confused. She states that she was having a hard time remembering where her keys were or her car. She reports that she felt slightly dizzy which she does sometimes get. She denied having any chest pain or shortness of breath. She denies passing out. She feels back to her baseline this morning. Vital signs are stable. Telemetry re veals sinus mechanism. DIAGNOSTICS: - EKG reveals sinus mechanism with PVCs. No signs of acute ischemia. - Chest xray negative for acute process. - Laboratory data: WBC 6.6. Hemoglobin 10.7. Platelet count 209. Sodium 138. Potassium 4.2. BUN 32.9. Creatinine 3.9. proBNP 4330. - Current home cardiac medications include lisinopril 20 mg daily as needed, hydralazine 50 mg twice a day as needed, Lasix 80 mg daily - Most recent echocardiogram obtained in August 2023 revealing ejection fraction 55 to 60%, mild aortic stenosis with peak gradient of 28 mmHg and mean gradient of 14 mmHg, mild MR, mild TR moderate to severely dilated left atrium. - Patient underwent Lexiscan stress test in August 2023 revealing defect along inferior wall. Artifact is favored. Prior infarct could be considered. No stress-induced ischemic changes. REVIEW OF SYSTEMS: At the time of my exam: CONSTITUTIONAL: Denies fever or chills. HEENT: Denies blurred vision, vision changes, or eye pain. Denies hemoptysis CARDIOVASCULAR: Denies chest pain. Denies orthopnea. Denies PND. Denies palpitations RESPIRATORY: Denies shortness of breath. GASTROINTESTINAL: Denies abdominal pain. Denies nausea or vomiting. HEMATOLOGIC: Denies bleeding disorders. GENITOURINARY: Denies any blood in urine. SKIN: Denies pruitis. Denies rash. PHYSICAL EXAM: VITAL SIGNS: Reviewed. GENERAL: Well-developed in no acute distress. HEENT: Head is normocephalic. Pupils are equal, round. Sclerae anicteric. Mucous membranes of the mouth are moist. Neck supple. No JVD or thyromegaly LUNGS: Respirations even and unlabored. Lungs essentially clear to auscultation bilaterally. HEART: Regular rate and rhythm. S1 and S2 heard. ABDOMEN: Soft. Nondistended. Nontender. EXTREMITIES: Normal range of motion. No clubbing or cyanosis. Peripheral pulses intact. No lower extremity edema NEUROLOGIC: Awake and alert. Oriented x 3. ASSESSMENT: Episode of transient confusion during hemodialysis End-stage renal disease on hemodialysis Chronic congestive heart failure with preserved EF 55 to 60% History of CVA with residual memory issues Hypertension Hyperlipidemia Diabetes Mild aortic stenosis Former nicotine dependence Obesity: BMI 35.4 PLAN: No need to obtain echocardiogram as this was performed in August 2023 Resume home cardiac medications Add metoprolol succinate 12.5 mg daily as patient is having occasional PVCs Patient is currently stable from a cardiac standpoint with no further inpatient recommendations Discharge per medicine Patient to follow-up postdischarge with Dr. Salter Nurse practitioner note has been reviewed by physician. Signing provider agrees with the documented findings, assessment, and plan of care documented by AUTO CLUTCH REBUILDER as a scribe. Past Medical History Past Medical History: Asthma, Cancer, COPD, Dialysis, Hyperlipidemia, Hypertension, Myocardial Infarction (SD), Osteoarthritis (OA), Pneumonia, Renal Disease, Thyroid Disorder Additional Past Medical History / Comment(s): Hx Uterine cancer 25 yrs ago, hemodialysis Mon, Wed and Sun, varicose veins., "mild heart attack"" "brain bleed twice" -> CVA chronic diarrhea, hx "18 polyps", "chronic back pain", anemia, current edema kashif feet Last Myocardial Infarction Date:: unknown History of Any Multi-Drug Resistant Organisms: None Reported Past Surgical History: Appendectomy, Bariatric Surgery, Cholecystectomy, Hysterectomy, Joint Replacement, Tonsillectomy Additional Past Surgical History / Comment(s): gastric bypass, surgery after fall -fx rt leg and foot, kashif knee replacement, kashif cataracts, surgery x 2 or "brain bleed", fistula for dialysis, COLONOSCOPY Past Anesthesia/Blood Transfusion Reactions: No Reported Reaction, Family History of Problems w/ Anesthesia Additional Past Anesthesia/Blood Transfusion Reaction / Comment(s): MOTHER PONV Past Psychological History: No Psychological Hx Reported Smoking Status: Former smoker Past Alcohol Use History: None Reported Additional Past Alcohol Use History / Comment(s): Quit smoking 30+ yrs ago. Past Drug Use History: None Reported - Past Family History Mother Family Medical History: Cancer Father Family Medical History: Diabetes Mellitus, Hypertension Sister(s) Family Medical History: Cancer Medications and Allergies Home Medications Medication Instructions Recorded Confirmed Type Calcium Acetate 1,334 mg PO TID-W/MEALS 12/22/19 12/31/23 History oxyCODONE-APAP 10-325MG [Percocet 1 tab PO TID PRN 02/18/22 12/31/23 History 10-325 mg] Albuterol Inhaler [Ventolin Hfa 2 puff INHALATION RT-QID PRN 06/15/22 12/31/23 History Inhaler] Albuterol Nebulized [Ventolin 2.5 mg INHALATION RT-QID PRN 06/15/22 12/31/23 History Nebulized] lisinopriL 20 mg PO DAILY PRN 01/17/23 12/31/23 History Acetaminophen Tab [Tylenol] 650 mg PO Q4HR PRN tab 01/22/23 12/31/23 Rx Ascorbic Acid [Vitamin C] 500 mg PO DAILY #30 tab 01/22/23 12/31/23 Rx Cyanocobalamin (Vitamin B-12) 1,000 mcg PO DAILY 08/27/23 12/31/23 History [Vitamin B-12] Folic Acid/Vit B Complex and C 0.8 mg PO HS 08/27/23 12/31/23 History [Nephro-Karla Tablet] Lidocaine-Prilocaine Cream [Emla 1 applic TOPICAL DIRECTED PRN 08/27/23 12/31/23 History Cream 2.5%/2.5%] Furosemide [Lasix] 80 mg PO DAILY 12/31/23 12/31/23 History hydrALAZINE HCL [Apresoline] 50 mg PO BID PRN 12/31/23 12/31/23 History predniSONE 10 mg PO DIRECTED 12/31/23 12/31/23 History Allergies Allergy/AdvReac Type Severity Reaction Status Date / Time cefuroxime Allergy Rash/Hives Verified 12/31/23 19:59 naproxen [From Naprosyn] Allergy Dyspnea Verified 12/31/23 19:59 blood thinner Allergy "brain Uncoded 12/31/23 19:59 bleed" Physical Exam Vitals: Vital Signs Temp Pulse Pulse Pulse Pulse Pulse Pulse 01/01/24 09:43 92 95 85 01/01/24 09:24 79 01/01/24 06:50 98.3 F 85 01/01/24 04:00 77 01/01/24 03:12 98.2 F 92 01/01/24 02:00 98.2 F 77 01/01/24 00:15 98.2 F 88 12/31/23 22:53 98.3 F 91 12/31/23 19:54 98.1 F 98 12/31/23 18:38 63 12/31/23 17:45 78 12/31/23 16:01 83 12/31/23 15:03 98.7 F 87 Resp BP BP BP BP BP Pulse Ox 01/01/24 09:43 115/69 118/67 119/67 01/01/24 09:24 126/70 01/01/24 06:50 16 136/78 95 01/01/24 04:00 17 01/01/24 03:12 17 123/79 97 01/01/24 02:00 16 111/67 96 01/01/24 00:15 16 121/61 95 12/31/23 22:53 15 108/59 95 12/31/23 19:54 17 128/60 96 12/31/23 18:38 19 113/67 93 L 12/31/23 17:45 19 103/74 93 L 12/31/23 16:01 18 113/65 95 12/31/23 15:03 17 113/65 92 L Intake and Output 12/31/23 01/01/24 01/01/24 22:59 06:59 14:59 Other: # Voids 2 Weight 90.718 kg 90.718 kg Results 01/01/24 05:11 01/01/24 05:11 Cardiac Enzymes 12/31/23 01/01/24 Range/Units 16:20 05:11 AST 40 H 28 (14-36) U/L Coagulation 12/31/23 Range/Units 16:20 PT 9.7 L (10.0-12.5) sec APTT 24.1 (22.0-30.0) sec CBC 12/31/23 Range/Units 16:20 WBC 6.6 (3.8-10.6) k/uL RBC 3.31 L (3.80-5.40) m/uL Hgb 10.7 L (11.4-16.0) gm/dL Hct 33.3 L (34.0-46.0) % Plt Count 209 (150-450) k/uL Comprehensive Metabolic Panel 12/31/23 01/01/24 Range/Units 16:20 05:11 Sodium 135 L 138 (137-145) mmol/L Potassium 3.8 4.2 (3.5-5.1) mmol/L Chloride 94 L 96 (98-107) mmol/L Carbon Dioxide 35 H 28.0 (22-30) mmol/L BUN 24 H 32.9 H (7-17) mg/dL Creatinine 2.70 H 3.9 H (0.52-1.04) mg/dL Glucose 119 H 99 (74-99) mg/dL Calcium 8.5 8.4 L (8.4-10.2) mg/dL AST 40 H 28 (14-36) U/L ALT 27 21 (4-34) U/L Alkaline Phosphatase 315 H 279 H (38-126) U/L Total Protein 7.0 6.0 L (6.3-8.2) g/dL Albumin 3.7 3.3 L (3.5-5.0) g/dL Current Medications Generic Name Dose Route Start Last Admin Trade Name Freq PRN Reason Stop Dose Admin Acetaminophen 650 mg 01/01/24 09:03 Acetaminophen Tab 325 Mg Tab PO Q4HR PRN Fever>101 Albuterol Sulfate 2.5 mg 01/01/24 09:03 Albuterol Nebulized 2.5 Mg/3 Ml INHALATION RT-QID PRN Shortness Of Breath Ascorbic Acid 500 mg 01/01/24 09:15 Ascorbic Acid 500 Mg Tab PO DAILY WILFREDO Calcium Acetate 1,334 mg 01/01/24 09:03 Calcium Acetate 667 Mg Tab PO TID-W/MEALS WILFREDO Cyanocobalamin 1,000 mcg 01/01/24 09:15 Cyanocobalamin 500 Mcg Tab PO DAILY WILFREDO Furosemide 80 mg 01/01/24 09:00 01/01/24 09:22 Furosemide 80 Mg Tab PO 80 mg DAILY WILFREDO Administration Hydralazine HCl 50 mg 01/01/24 09:00 01/01/24 09:21 Hydralazine Hcl 50 Mg Tab PO 50 mg BID WILFREDO Administration Lisinopril 20 mg 01/01/24 09:00 01/01/24 09:21 Lisinopril 20 Mg Tab PO 20 mg DAILY WILFREDO Administration Metoprolol Succinate 12.5 mg 01/01/24 09:00 01/01/24 09:22 Metoprolol Succinate (Er) 25 Mg Tab.Er.24h PO 12.5 mg DAILY WILFREDO Administration Multivit/Ca Carb/B Cmplx/FA/Prenat 1 each 01/01/24 21:00 Folic Acid-Vit B Complex-Vit C 1 Cap PO HS WILFREDO Naloxone HCl 0.2 mg 12/31/23 18:40 Naloxone 0.4 Mg/Ml 1 Ml Vial IV Q2M PRN Opioid Reversal Oxycodone/Acetaminophen 1 each 01/01/24 09:03 01/01/24 09:22 Oxycodone-Apap 10-325mg 1 Each Tab PO 1 each TID PRN Administration Pain Intake and Output 12/31/23 01/01/24 01/01/24 22:59 06:59 14:59 Other: # Voids 2 Weight 90.718 kg 90.718 kg 12/31/23 16:20 01/01/24 05:11
--- NOTE | 2024-01-01 11:05 | P.NPCON ---
History of Present Illness - Reason for Consult end stage renal disease - History of Present Illness Reason for consultation: End-stage renal disease History of present illness: Patient is a 78-year-old female seen in renal consultation for end-stage renal disease. She is maintained on hemodialysis on Sunday schedule. Patient completed hemodialysis yesterday. Towards the end of the treatment she felt foggy and subsequently came to the hospital. Brain CT showed no acute changes. Patient does have history of CVA. Denies history of diabetes or coronary artery disease. She does admit to occasional diarrhea. No vomiting. Patient states her blood pressure at home has been quite stable. Orthostatics done this morning were negative. Denies fever or chills. She does make urine. On oral Lasix. Denies syncope. Vital signs are stable. General: No acute distress. HEENT: Head exam is unremarkable. LUNGS: No audible rhonchi or wheezes. HEART: Rate and Rhythm are regular. ABDOMEN: Nontender, obese. EXTREMITITES: No edema. Past Medical History Past Medical History: Asthma, Cancer, COPD, Dialysis, Hyperlipidemia, Hypertension, Myocardial Infarction ([place]), Osteoarthritis (OA), Pneumonia, Renal Disease, Thyroid Disorder Additional Past Medical History / Comment(s): Hx Uterine cancer 25 yrs ago, hemodialysis Sun, Sun and Sun, varicose veins., "mild heart attack"" "brain bleed twice" -> CVA chronic diarrhea, hx "18 polyps", "chronic back pain", anemia, current edema kashif feet Last Myocardial Infarction Date:: unknown History of Any Multi-Drug Resistant Organisms: None Reported Past Surgical History: Appendectomy, Bariatric Surgery, Cholecystectomy, Hysterectomy, Joint Replacement, Tonsillectomy Additional Past Surgical History / Comment(s): gastric bypass, surgery after fall -fx rt leg and foot, kashif knee replacement, kashif cataracts, surgery x 2 or "brain bleed", fistula for dialysis, COLONOSCOPY Past Anesthesia/Blood Transfusion Reactions: No Reported Reaction, Family Histo ry of Problems w/ Anesthesia Additional Past Anesthesia/Blood Transfusion Reaction / Comment(s): MOTHER PONV Past Psychological History: No Psychological Hx Reported Smoking Status: Former smoker Past Alcohol Use History: None Reported Additional Past Alcohol Use History / Comment(s): Quit smoking 30+ yrs ago. Past Drug Use History: None Reported - Past Family History Mother Family Medical History: Cancer Father Family Medical History: Diabetes Mellitus, Hypertension Sister(s) Family Medical History: Cancer Medications and Allergies Home Medications Medication Instructions Recorded Confirmed Type Calcium Acetate 1,334 mg PO TID-W/MEALS 12/22/19 12/31/23 History oxyCODONE-APAP 10-325MG [Percocet 1 tab PO TID PRN 02/18/22 12/31/23 History 10-325 mg] Albuterol Inhaler [Ventolin Hfa 2 puff INHALATION RT-QID PRN 06/15/22 12/31/23 History Inhaler] Albuterol Nebulized [Ventolin 2.5 mg INHALATION RT-QID PRN 06/15/22 12/31/23 History Nebulized] lisinopriL 20 mg PO DAILY PRN 01/17/23 12/31/23 History Acetaminophen Tab [Tylenol] 650 mg PO Q4HR PRN tab 01/22/23 12/31/23 Rx Ascorbic Acid [Vitamin C] 500 mg PO DAILY #30 tab 01/22/23 12/31/23 Rx Cyanocobalamin (Vitamin B-12) 1,000 mcg PO DAILY 08/27/23 12/31/23 History [Vitamin B-12] Folic Acid/Vit B Complex and C 0.8 mg PO HS 08/27/23 12/31/23 History [Nephro-Karla Tablet] Lidocaine-Prilocaine Cream [Emla 1 applic TOPICAL DIRECTED PRN 08/27/23 12/31/23 History Cream 2.5%/2.5%] Furosemide [Lasix] 80 mg PO DAILY 12/31/23 12/31/23 History hydrALAZINE HCL [Apresoline] 50 mg PO BID PRN 12/31/23 12/31/23 History predniSONE 10 mg PO DIRECTED 12/31/23 12/31/23 History Allergies Allergy/AdvReac Type Severity Reaction Status Date / Time cefuroxime Allergy Rash/Hives Verified 12/31/23 19:59 naproxen [From Naprosyn] Allergy Dyspnea Verified 12/31/23 19:59 blood thinner Allergy "brain Uncoded 12/31/23 19:59 bleed" Physical Exam Vitals: Vital Signs Temp Pulse Pulse Pulse Pulse Pulse Pulse 01/01/24 09:43 92 95 85 01/01/24 09:24 79 01/01/24 06:50 98.3 F 85 01/01/24 04:00 77 01/01/24 03:12 98.2 F 92 01/01/24 02:00 98.2 F 77 01/01/24 00:15 98.2 F 88 12/31/23 22:53 98.3 F 91 12/31/23 19:54 98.1 F 98 12/31/23 18:38 63 12/31/23 17:45 78 12/31/23 16:01 83 12/31/23 15:03 98.7 F 87 Resp BP BP BP BP BP Pulse Ox 01/01/24 09:43 115/69 118/67 119/67 01/01/24 09:24 126/70 01/01/24 06:50 16 136/78 95 01/01/24 04:00 17 01/01/24 03:12 17 123/79 97 01/01/24 02:00 16 111/67 96 01/01/24 00:15 16 121/61 95 12/31/23 22:53 15 108/59 95 12/31/23 19:54 17 128/60 96 12/31/23 18:38 19 113/67 93 L 12/31/23 17:45 19 103/74 93 L 12/31/23 16:01 18 113/65 95 12/31/23 15:03 17 113/65 92 L Intake and Output 12/31/23 01/01/24 01/01/24 22:59 06:59 14:59 Other: # Voids 2 Weight 90.718 kg 90.718 kg Results - Lab Results Most recent lab results Calcium 8.4 mg/dL (8.7-10.3) L 01/01/24 05:11 Phosphorus 3.6 mg/dL (2.5-4.5) 12/31/23 16:20 Magnesium 1.8 mg/dL (1.6-2.3) 12/31/23 16:20 01/01/24 05:11 01/01/24 05:11 Assessment and Plan Plan: Assessment: 1. End-stage renal disease maintained on hemodialysis on Sunday schedule. 2. Confusion during dialysis. Blood pressure stable this admission. Orthostatics negative. Mentation back at baseline. 3. Chronic diastolic CHF. 4. History of CVA. 5. Chronic kidney disease mineral bone disease maintained on PhosLo. 6. Anemia of chronic kidney disease. Plan: Hemodialysis tomorrow. Hold hydralazine for systolic blood pressure less than 120. Patient monitors her blood pressure closely at home and holds medication based on parameters. Metoprolol added by cardiology due to PVCs. DONTA and iron outpatient. Thank you for the consultation. I will continue to follow the patient with you during her hospital stay.
[2024-01-01 11:24] VITALS: BMI 35.4
[2024-01-01] MEDS: CALCIUM ACETATE 667 MG TAB PO SCH (11:37)
[2024-01-01] MEDS: CYANOCOBALAMIN 500 MCG TAB PO SCH (11:38)
[2024-01-01] MEDS: ASCORBIC ACID 500 MG TAB PO SCH (11:38)
[2024-01-01] MEDS: ALBUTEROL NEBULIZED 2.5 MG/3 ML INHALATION PRN (12:29)
[2024-01-01] MEDS: ONDANSETRON 4 MG/2 ML VIAL IVP PRN (18:17)
[2024-01-01] MEDS: FOLIC ACID-VIT B COMPLEX-VIT C 1 CAP PO SCH (21:00)
--- NOTE | 2024-01-01 22:17 | P.HPIM ---
History of Present Illness H&P Date: 01/01/24 Chief Complaint: Some confusion This is a pleasant [address] Rizvi. Chronic stable medical conditions include hypertension, hyperlipidemia, depression, anxiety, o steoarthritis. End-stage kidney disease on hemodialysis. Patient was at dialysis. Then she felt a bit confused. Did not remember about her appointment. Not sure about her car. This lasted for a few minutes. Also had a near syncope. Patient has longstanding diarrhea off and on since she has had a gastric surgery. Appetite is fair. No fever no chills. No pain. Admitted for the same. Review of systems: GEN.: Tired EYES: None HEENT: None NECK: None RESPIRATORY: As above CARDIOVASCULAR: Edema GASTROINTESTINAL: None GENITOURINARY: None MUSCULOSKELETAL: Joint pains LYMPHATICS: None HEMATOLOGICAL: None PSYCHIATRY: Anxious NEUROLOGICAL: No focal currently Past medical history to include: Hypertension, hyperlipidemia, depression, anxiety, osteoarthritis, end-stage kidney disease on hemodialysis, uterine cancer, bariatric surgery, depression, osteoarthritis Social history: Quit smoking over 30 years ago. Lives alone. Does use a cane and a walker Physical examination: VITAL SIGNS: 98.3, 85, 16, 136 per 78, 95% room air GENERAL: BMI 35.4, reclining in bed awake comfortable EYES: Pupils equal. Conjunctiva normal. HEENT: External appearance of nose and ears normal, oral cavity grossly normal. NECK: JVD not raised; masses not palpable. HEART: First and second heart sounds are normal; some edema. LUNGS: Respiratory rate normal; decreased breath sound ABDOMEN: Soft, nontender, liver spleen not palpable, no masses palpable. PSYCH: Alert and oriented x3; mood and affect anxiousl. MUSCULOSKELETAL:No Clubbing/cyanosis;muscles-grossly intact. OA NEUROLOGICAL: Cranial nerves grossly intact. Power sensation grossly intact. INVESTIGATIONS, reviewed in the clinical context: January 01, 2024: White count 7.2 hemoglobin 10.2 platelets 207 sodium 138 potassium 4.2 BUN 32.9 creatinine 3.9 EKG tracing personally reviewed by me-normal sinus rhythm. PACs. Nonspecific T wave changes. Chest x-ray film personally reviewed by me-some right diaphragm elevation CT brain without contrast: Some chronic atrophic changes Assessment and plan: -Brief.. Episode of confusion patient could not remember things. Follow-up with near syncope. Could be from relative hypotension following dialysis. This morning patient feeling better. -COPD in a prior smoker Inhaler as needed -Anemia of chronic kidney disease -End-stage kidney disease on hemodialysis. From diabetic nephropathy Follow with nephrology -Hyperlipidemia -Essential hypertension, Lisinopril 40 mg daily, -Primary osteoarthritis Tylenol as needed -Obesity BMI 35.4 Weight loss measures -DO NOT RESUSCITATE Care was discussed with patient. Blood pressure will be followed closely. Home medication resumed. Scheduled for dialysis tomorrow. Nephrology consulted. Telemetry. Past Medical History Past Medical History: Asthma, Cancer, COPD, Dialysis, Hyperlipidemia, Hypertension, Myocardial Infarction ([place]), Osteoarthritis (OA), Pneumonia, Renal Disease, Thyroid Disorder Additional Past Medical History / Comment(s): Hx Uterine cancer 25 yrs ago, hemodialysis Sun, Sun and Sun, varicose veins., "mild heart attack"" "brain bleed twice" -> CVA chronic diarrhea, hx "18 polyps", "chronic back pain", anemia, current edema kashif feet Last Myocardial Infarction Date:: unknown History of Any Multi-Drug Resistant Organisms: None Reported Past Surgical History: Appendectomy, Bariatric Surgery, Cholecystectomy, Hysterectomy, Joint Replacement, Tonsillectomy Additional Past Surgical History / Comment(s): gastric bypass, surgery after fall -fx rt leg and foot, kashif knee replacement, kashif cataracts, surgery x 2 or "brain bleed", fistula for dialysis, COLONOSCOPY Past Anesthesia/Blood Transfusion Reactions: No Reported Reaction, Family History of Problems w/ Anesthesia Additional Past Anesthesia/Blood Transfusion Reaction / Comment(s): MOTHER PONV Past Psychological History: No Psychological Hx Reported Smoking Status: Former smoker Past Alcohol Use History: None Reported Additional Past Alcohol Use History / Comment(s): Quit smoking 30+ yrs ago. Past Drug Use History: None Reported - Past Family History Mother Family Medical History: Cancer Father Family Medical History: Diabetes Mellitus, Hypertension Sister(s) Family Medical History: Cancer Medications and Allergies Home Medications Medication Instructions Recorded Confirmed Type Calcium Acetate 1,334 mg PO TID-W/MEALS 12/22/19 12/31/23 History oxyCODONE-APAP 10-325MG [Percocet 1 tab PO TID PRN 02/18/22 12/31/23 History 10-325 mg] Albuterol Inhaler [Ventolin Hfa 2 puff INHALATION RT-QID PRN 06/15/22 12/31/23 History Inhaler] Albuterol Nebulized [Ventolin 2.5 mg INHALATION RT-QID PRN 06/15/22 12/31/23 History Nebulized] lisinopriL 20 mg PO DAILY PRN 01/17/23 12/31/23 History Acetaminophen Tab [Tylenol] 650 mg PO Q4HR PRN tab 01/22/23 12/31/23 Rx Ascorbic Acid [Vitamin C] 500 mg PO DAILY #30 tab 01/22/23 12/31/23 Rx Cyanocobalamin (Vitamin B-12) 1,000 mcg PO DAILY 08/27/23 12/31/23 History [Vitamin B-12] Folic Acid/Vit B Complex and C 0.8 mg PO HS 08/27/23 12/31/23 History [Nephro-Karla Tablet] Lidocaine-Prilocaine Cream [Emla 1 applic TOPICAL DIRECTED PRN 08/27/23 12/31/23 History Cream 2.5%/2.5%] Furosemide [Lasix] 80 mg PO DAILY 12/31/23 12/31/23 History hydrALAZINE HCL [Apresoline] 50 mg PO BID PRN 12/31/23 12/31/23 History predniSONE 10 mg PO DIRECTED 12/31/23 12/31/23 History Allergies Allergy/AdvReac Type Severity Reaction Status Date / Time cefuroxime Allergy Rash/Hives Verified 12/31/23 19:59 naproxen [From Naprosyn] Allergy Dyspnea Verified 12/31/23 19:59 blood thinner Allergy "brain Uncoded 12/31/23 19:59 bleed" Physical Exam Vitals: Vital Signs Temp Pulse Pulse Pulse Pulse Pulse Pulse 01/01/24 09:43 92 95 85 01/01/24 09:24 79 01/01/24 06:50 98.3 F 85 01/01/24 04:00 77 01/01/24 03:12 98.2 F 92 01/01/24 02:00 98.2 F 77 01/01/24 00:15 98.2 F 88 12/31/23 22:53 98.3 F 91 12/31/23 19:54 98.1 F 98 12/31/23 18:38 63 12/31/23 17:45 78 12/31/23 16:01 83 12/31/23 15:03 98.7 F 87 Resp BP BP BP BP BP Pulse Ox 01/01/24 09:43 115/69 118/67 119/67 01/01/24 09:24 126/70 01/01/24 06:50 16 136/78 95 01/01/24 04:00 17 01/01/24 03:12 17 123/79 97 01/01/24 02:00 16 111/67 96 01/01/24 00:15 16 121/61 95 12/31/23 22:53 15 108/59 95 12/31/23 19:54 17 128/60 96 12/31/23 18:38 19 113/67 93 L 12/31/23 17:45 19 103/74 93 L 12/31/23 16:01 18 113/65 95 12/31/23 15:03 17 113/65 92 L Intake and Output 12/31/23 01/01/24 01/01/24 22:59 06:59 14:59 Other: # Voids 2 Weight 90.718 kg 90.718 kg Results CBC & Chem 7: 01/01/24 05:11 01/01/24 05:11 Labs: Abnormal Lab Results - Last 24 Hours (Table) 12/31/23 12/31/23 12/31/23 Range/Units 16:20 16:20 16:20 RBC 3.31 L (3.80-5.40) m/uL Hgb 10.7 L (11.4-16.0) gm/dL Hct 33.3 L (34.0-46.0) % MCV 100.7 H (80.0-100.0) fL MCH (27.0-32.0) pg MCHC (32.0-37.0) g/dL Lymphocytes # 0.9 L (1.0-4.8) k/uL PT 9.7 L (10.0-12.5) sec Sodium 135 L (137-145) mmol/L Chloride 94 L (98-107) mmol/L Carbon Dioxide 35 H (22-30) mmol/L Anion Gap (4.00-12.00) mmol/L BUN 24 H (7-17) mg/dL Creatinine 2.70 H (0.52-1.04) mg/dL Est GFR (CKD-EPI) (>=60) BUN/Creatinine Ratio (12.00-20.00) Ratio Glucose 119 H (74-99) mg/dL Calcium (8.7-10.3) mg/dL AST 40 H (14-36) U/L Alkaline Phosphatase 315 H (38-126) U/L Total Protein (6.2-8.2) g/dL Albumin (3.8-4.9) g/dL Albumin/Globulin Ratio (1.60-3.17) Ratio 01/01/24 01/01/24 Range/Units 05:11 05:11 RBC 3.17 L (3.80-5.40) m/uL Hgb 10.2 L (11.4-16.0) gm/dL Hct 32.8 L (34.0-46.0) % MCV 103.5 H (80.0-100.0) fL MCH 32.2 H (27.0-32.0) pg MCHC 31.1 L (32.0-37.0) g/dL Lymphocytes # (1.0-4.8) k/uL PT (10.0-12.5) sec Sodium (137-145) mmol/L Chloride (98-107) mmol/L Carbon Dioxide (22-30) mmol/L Anion Gap 14.00 H (4.00-12.00) mmol/L BUN 32.9 H (7-17) mg/dL Creatinine 3.9 H (0.52-1.04) mg/dL Est GFR (CKD-EPI) 11 L (>=60) BUN/Creatinine Ratio 8.44 L (12.00-20.00) Ratio Glucose (74-99) mg/dL Calcium 8.4 L (8.7-10.3) mg/dL AST (14-36) U/L Alkaline Phosphatase 279 H (38-126) U/L Total Protein 6.0 L (6.2-8.2) g/dL Albumin 3.3 L (3.8-4.9) g/dL Albumin/Globulin Ratio 1.22 L (1.60-3.17) Ratio Thrombosis Risk Factor Assmnt - Choose All That Apply Any of the Below Risk Factors Present?: Yes Each Factor Represents 1 point: Heart failure (<1month), Obesity (BMI >25) Other Risk Factors: Yes Each Risk Factor Represents 2 Points: Age 61-74 years Each Risk Factor Represents 3 Points: Age 75 years or older Thrombosis Risk Factor Assessment Total Risk Factor Score: 7 Thrombosis Risk Factor Assessment Level: High Risk
[2024-01-02 03:39] VITALS: RESP 18
[2024-01-02 10:35] LABS: Hepatitis B Surface Antigen Nonreactive (Nonreactive)
--- NOTE | 2024-01-02 11:06 | P.PN ---
Subjective Patient is seen in follow-up for end-stage renal disease. She is maintained on hemodialysis on Sunday schedule. Hemodynamically stable. No active complaints. Wants to go home. Vital signs are stable. General: No acute distress. HEENT: Head exam is unremarkable. LUNGS: No audible rhonchi or wheezes. HEART: Rate and Rhythm are regular. ABDOMEN: Obese, nontender. EXTREMITITES: No edema. Objective - Vital Signs Vital signs: Vital Signs Temp 98.0 F 01/02/24 07:00 Pulse 80 01/02/24 08:37 Resp 18 01/02/24 07:00 BP 136/68 01/02/24 07:00 Pulse Ox 99 01/02/24 07:00 FiO2 Intake & Output 01/01/24 01/02/24 01/02/24 18:59 06:59 18:59 Intake Total 480 118 Balance 480 118 Weight 90.718 kg Intake: Oral 480 118 Other: Voiding Method Toilet # Voids 2 1 1 # Bowel Movements 2 - Labs CBC & Chem 7: 01/01/24 05:11 01/01/24 05:11 Assessment and Plan Plan: Assessment: 1. End-stage renal disease maintained on hemodialysis on Sunday schedule. 2. Confusion during dialysis. Blood pressure stable this admission. Orthostatics negative. Mentation back at baseline. 3. Chronic diastolic CHF. 4. History of CVA. 5. Chronic kidney disease mineral bone disease maintained on PhosLo. 6. Anemia of chronic kidney disease. Plan: Hemodialysis today. Hold hydralazine for systolic blood pressure less than 120. Patient monitors her blood pressure closely at home and holds medication based on parameters. Metoprolol added by cardiology due to PVCs. DONTA and iron outpatient. Anticipate discharge soon.
[2024-01-02 11:55] LABS: Hepatitis B Surface AB- Quant 3.5 mIU/mL
[2024-01-02 14:45] VITALS: TEMP 97.5
[2024-01-02 16:26] VITALS: BP 115/53; PULSE 70
--- NOTE | 2024-01-02 16:36 | P.DS ---
Providers Date of admission: 12/31/23 18:26 Expected date of discharge: 01/02/24 Attending physician: Duncan Panchal Consults: 12/31/23 18:40 Consult Physician Routine Consulting Provider: Marco Augustine Consult Reason/Comments: elevated BNP, ESRD on dialysis Do you want consulting provider notified?: Yes, Notify in am [facility] Course: Chief Complaint: Some confusion This is a pleasant [address] Rizvi. Chronic stable medical conditions include hypertension, hyperlipidemia, depression, anxiety, o steoarthritis. End-stage kidney disease on hemodialysis. Patient was at dialysis. Then she felt a bit confused. Did not remember about her appointment. Not sure about her car. This lasted for a few minutes. Also had a near syncope. Patient has longstanding diarrhea off and on since she has had a gastric surgery. Appetite is fair. No fever no chills. No pain. Admitted for the same. January 01: Patient doing well. Cementer today. Otherwise doing well. Eating well. No new symptoms. Blood pressure medications have been adjusted. Past medical history to include: Hypertension, hyperlipidemia, depression, anxiety, osteoarthritis, end-stage kidney disease on hemodialysis, uterine cancer, bariatric surgery, depression, osteoarthritis Social history: Quit smoking over 30 years ago. Lives alone. Does use a cane and a walker Physical examination: VITAL SIGNS: 97.5, 70, 18, 115 x 53, 99% room air GENERAL: BMI 35.4, sitting up, comfortable EYES: Pupils equal. Conjunctiva normal. HEENT: External appearance of nose and ears normal, oral cavity grossly normal. NECK: JVD not raised; masses not palpable. HEART: First and second heart sounds are normal; some edema. LUNGS: Respiratory rate normal; decreased breath sound ABDOMEN: Soft, nontender, liver spleen not palpable, no masses palpable. PSYCH: Alert and oriented x3; mood and affect anxiousl. MUSCULOSKELETAL:No Clubbing/cyanosis;muscles-grossly intact. OA NEUROLOGICAL: Cranial nerves grossly intact. Power sensation grossly intact. INVESTIGATIONS, reviewed in the clinical context: January 01, 2024: White count 7.2 hemoglobin 10.2 platelets 207 sodium 138 potassium 4.2 BUN 32.9 creatinine 3.9 EKG tracing personally reviewed by me-normal sinus rhythm. PACs. Nonspecific T wave changes. Chest x-ray film personally reviewed by me-some right diaphragm elevation CT brain without contrast: Some chronic atrophic changes Assessment and plan: -Brief.. Episode of confusion patient could not remember things. Follow-up with near syncope. Could be from relative hypotension following dialysis.: Corrected -COPD in a prior smoker Inhaler as needed -Anemia of chronic kidney disease -End-stage kidney disease on hemodialysis. From diabetic nephropathy Hemodialysis today Follow with nephrology -Hyperlipidemia -Essential hypertension, Lisinopril 40 mg daily, -Primary osteoarthritis Tylenol as needed -Obesity BMI 35.4 Weight loss measures -DO NOT RESUSCITATE Disposition: Home Past Medical History Past Medical History: Asthma, Cancer, COPD, Dialysis, Hyperlipidemia, Hypertension, Myocardial Infarction ([place]), Osteoarthritis ([place]), Pneumonia, Renal Disease, Thyroid Disorder Additional Past Medical History / Comment(s): Hx Uterine cancer 25 yrs ago, hemodialysis Mon, Sun and Sun, varicose veins., "mild heart attack"" "brain bleed twice" -> CVA chronic diarrhea, hx "18 polyps", "chronic back pain", anemia, current edema kashif feet Last Myocardial Infarction Date:: unknown History of Any Multi-Drug Resistant Organisms: None Reported Past Surgical History: Appendectomy, Bariatric Surgery, Cholecystectomy, Hysterectomy, Joint Replacement, Tonsillectomy Additional Past Surgical History / Comment(s): gastric bypass, surgery after fall -fx rt leg and foot, kashif knee replacement, kashif cataracts, surgery x 2 or "brain bleed", fistula for dialysis, COLONOSCOPY Past Anesthesia/Blood Transfusion Reactions: No Reported Reaction, Family History of Problems w/ Anesthesia Additional Past Anesthesia/Blood Transfusion Reaction / Comment(s): MOTHER PONV Past Psychological History: No Psychological Hx Reported Smoking Status: Former smoker Past Alcohol Use History: None Reported Additional Past Alcohol Use History / Comment(s): Quit smoking 30+ yrs ago. Past Drug Use History: None Reported Plan - Discharge Summary New Discharge Prescriptions: New Metoprolol Succinate (ER) [Toprol XL] 12.5 mg PO HS #30 tab Continue Calcium Acetate 1,334 mg PO TID-W/MEALS oxyCODONE-APAP 10-325MG [Percocet 10-325 mg] 1 tab PO TID PRN PRN Reason: Pain Albuterol Inhaler [Ventolin Hfa Inhaler] 2 puff INHALATION RT-QID PRN PRN Reason: Shortness Of Breath Albuterol Nebulized [Ventolin Nebulized] 2.5 mg INHALATION RT-QID PRN PRN Reason: Shortness Of Breath Folic Acid/Vit B Complex and C [Nephro-Karla Tablet] 0.8 mg PO HS Lidocaine-Prilocaine Cream [Emla Cream 2.5%/2.5%] 1 applic TOPICAL DIRECTED PRN PRN Reason: AVF access Furosemide [Lasix] 80 mg PO DAILY Acetaminophen Tab [Tylenol] 650 mg PO Q4HR PRN tab PRN Reason: Fever>101 Ascorbic Acid [Vitamin C] 500 mg PO DAILY #30 tab Cyanocobalamin (Vitamin B-12) [Vitamin B-12] 1,000 mcg PO DAILY predniSONE 10 mg PO DIRECTED Changed hydrALAZINE HCL [Apresoline] 50 mg PO BID #60 tab lisinopriL 20 mg PO DAILY #30 tab Discharge Medication List Calcium Acetate 1,334 mg PO TID-W/MEALS 12/22/19 [History] oxyCODONE-APAP 10-325MG [Percocet 10-325 mg] 1 tab PO TID PRN 02/18/22 [History] Albuterol Inhaler [Ventolin Hfa Inhaler] 2 puff INHALATION RT-QID PRN 06/15/22 [History] Albuterol Nebulized [Ventolin Nebulized] 2.5 mg INHALATION RT-QID PRN 06/15/22 [History] Acetaminophen Tab [Tylenol] 650 mg PO Q4HR PRN tab 01/22/23 [Rx] Ascorbic Acid [Vitamin C] 500 mg PO DAILY #30 tab 01/22/23 [Rx] Cyanocobalamin (Vitamin B-12) [Vitamin B-12] 1,000 mcg PO DAILY 08/27/23 [History] Folic Acid/Vit B Complex and C [Nephro-Karla Tablet] 0.8 mg PO HS 08/27/23 [History] Lidocaine-Prilocaine Cream [Emla Cream 2.5%/2.5%] 1 applic TOPICAL DIRECTED PRN 08/27/23 [History] Furosemide [Lasix] 80 mg PO DAILY 12/31/23 [History] predniSONE 10 mg PO DIRECTED 12/31/23 [History] Metoprolol Succinate (ER) [Toprol XL] 12.5 mg PO HS #30 tab 01/02/24 [Rx] hydrALAZINE HCL [Apresoline] 50 mg PO BID #60 tab 01/02/24 [Rx] lisinopriL 20 mg PO DAILY #30 tab 01/02/24 [Rx] Follow up Appointment(s)/Referral(s): Gautam Rizvi DO [Primary Care Provider] - 1-2 days
== END 2024-01-02 16:55 | disposition home or self-care (01) ==
LOC: EC 15:00 → 6NMEDSUR 18:26
PROVIDERS: ADMIT Hospitalist; ATTEND Hospitalist
DX: I13.2 Hypertensive heart and chronic kidney disease with heart failure and with stage 5 chronic kidney disease, or end stage renal disease (principal); I50.32 Chronic diastolic (congestive) heart failure; I69.311 Memory deficit following cerebral infarction; E11.22 Type 2 diabetes mellitus with diabetic chronic kidney disease; N18.6 End stage renal disease; J44.9 Chronic obstructive pulmonary disease, unspecified; Z99.2 Dependence on renal dialysis; Z66 Do not resuscitate; D63.1 Anemia in chronic kidney disease; M89.8X9 Other specified disorders of bone, unspecified site; E78.5 Hyperlipidemia, unspecified; I49.3 Ventricular premature depolarization; I35.0 Nonrheumatic aortic (valve) stenosis; R19.7 Diarrhea, unspecified; F32.A Depression, unspecified; F41.9 Anxiety disorder, unspecified; M19.91 Primary osteoarthritis, unspecified site; E66.9 Obesity, unspecified; Z68.35 Body mass index [BMI] 35.0-35.9, adult; Z79.52 Long term (current) use of systemic steroids; Z79.899 Other long term (current) drug therapy; Z87.891 Personal history of nicotine dependence; Z88.6 Allergy status to analgesic agent; Z88.8 Allergy status to other drugs, medicaments and biological substances; Z88.1 Allergy status to other antibiotic agents; Z83.3 Family history of diabetes mellitus; Z82.49 Family history of ischemic heart disease and other diseases of the circulatory system
CPT/HCPCS: 96374; 99285; 51798; 36415; 94640 ×3; 93005; 83880; 80053 ×2; 83735; 84100; 85025 ×2; 85610; 85730; 86706; 87340; 71046; 70450; G0257; G0378 ×3; J2405; 90935

== ENCOUNTER 2024-05-05 16:01 | Observation (INO) | payer MEDICARE, BC ==
--- NOTE | 2024-05-05 16:50 | ED ---
Weakness HPI - General Source: patient, RN notes reviewed Mode of arrival: ambulatory Limitations: no limitations - History of Present Illness Complaint: generalized weakness <Charu Altamirano - Last Filed: 05/05/24 16:42> - General Source: patient, RN notes reviewed, old records reviewed Mode of arrival: ambulatory Limitations: no limitations - History of Present Illness Complaint: generalized weakness -: days(s) Location: generalized Severity: severe Severity scale (1-10): 8 Consistency: constant Improves with: none Worsens with: none Context: recent illness Associated Symptoms: chest pain, shortness of breath <Victorino Valles - Last Filed: 05/12/24 16:04> - General Chief complaint: Weakness Stated complaint: Weakness,Nausea Time Seen by Provider: 05/05/24 16:40 - History of Present Illness Initial comments: Quick Note: This is a 78 year old female who presents to the emergency department for coughing and shortness of breath over the last few days. States that she continues to feel weaker. She is a hemodialysis patient M,W,F. Denies any chest pain. (Charu Altamirano) This is a 78-year-old female to ER for severe weakness shortness of breath exert ional dyspnea significant cough congestion wheezing, patient is on hemodialysis (Victorino Valles) - Related Data Home Medications Medication Instructions Recorded Confirmed Calcium Acetate 1,334 mg PO TID-W/MEALS 12/22/19 05/06/24 oxyCODONE-APAP 10-325MG [Percocet 1 tab PO TID PRN 02/18/22 05/06/24 10-325 mg] Albuterol Inhaler [Ventolin Hfa 2 puff INHALATION RT-QID PRN 06/15/22 05/06/24 Inhaler] Folic Acid/Vit B Complex and C 0.8 mg PO HS 08/27/23 05/06/24 [Nephro-Karla Tablet] Lidocaine-Prilocaine Cream [Emla 1 applic TOPICAL MOWEFR PRN 08/27/23 05/06/24 Cream 2.5%/2.5%] Furosemide [Lasix] 80 mg PO DAILY 12/31/23 05/06/24 Fluticasone Propionate [Flonase 2 spray EA NOSTRIL DAILY PRN 05/06/24 05/06/24 Allergy Relief] Ipratropium-Albuterol Nebulize 3 ml INHALATION RT-TID PRN 05/06/24 05/06/24 [Duoneb 0.5 mg-3 mg/3 ml Soln] Sulfamethox-Tmp 800-160Mg [Bactrim 0.5 tab PO BID 05/06/24 05/06/24 DS 800-160 mg] Vitamin B Complex 1 cap PO HS 05/06/24 05/06/24 Previous Rx's Medication Instructions Recorded Acetaminophen Tab [Tylenol] 650 mg PO Q4HR PRN tab 01/22/23 Metoprolol Succinate (ER) [Toprol 12.5 mg PO HS #30 tab 01/02/24 XL] Ciprofloxacin HCl [Cipro] 500 mg PO DAILY 4 Days #4 tab 05/09/24 predniSONE 30 mg PO DAILY 5 Days #15 tab 05/09/24 Allergies Allergy/AdvReac Type Severity Reaction Status Date / Time cefuroxime Allergy Rash/Hives Verified 05/06/24 08:30 naproxen [From Naprosyn] Allergy Dyspnea Verified 05/06/24 08:30 blood thinner Allergy "brain Uncoded 05/05/24 16:40 bleed" Review of Systems ROS Other: All systems not noted in ROS Statement are negative. <Charu Altamirano - Last Filed: 05/05/24 16:42> ROS Other: All systems not noted in ROS Statement are negative. <Victorino Valles - Last Filed: 05/12/24 16:04> ROS Statement: Those systems with pertinent positive or pertinent negative responses have been documented in the HPI. 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 chronic diarrhea, hx "18 polyps", "chronic back pain", anemia, current edema kashif feet Last Myocardial Infarction Date:: unknown History of Any Multi-Drug Resistant Organisms: None Reported, ESBL Date of last positivie culture/infection: 04/30/24 MDRO Source:: urine Past Surgical History: Appendectomy, Bariatric Surgery, Cholecystectomy, Hysterectomy, Joint Replacement, Tonsillectomy Additional Past Surgical History / Comment(s): gastric bypass, surgery after fall -fx rt leg and foot, kashif knee replacement, kashif cataracts, surgery x 2 or "brain bleed", fistula for dialysis, COLONOSCOPY Past Anesthesia/Blood Transfusion Reactions: No Reported Reaction, Family History of Problems w/ Anesthesia Additional Past Anesthesia/Blood Transfusion Reaction / Comment(s): MOTHER PONV Past Psychological History: No Psychological Hx Reported Smoking Status: Former smoker Past Alcohol Use History: None Reported Past Drug Use History: None Reported - Past Family History Mother Family Medical History: Cancer Father Family Medical History: Diabetes Mellitus, Hypertension Sister(s) Family Medical History: Cancer <Charu Altamirano - Last Filed: 05/05/24 16:42> General Exam Limitations: no limitations <Charu Altamirano - Last Filed: 05/05/24 16:42> General appearance: alert, in no apparent distress Head exam: Present: atraumatic, normocephalic, normal inspection Eye exam: Present: normal appearance, PERRL, EOMI. Absent: scleral icterus, conjunctival injection, periorbital swelling ENT exam: Present: normal exam, mucous membranes moist Neck exam: Present: normal inspection. Absent: tenderness, meningismus, lymphadenopathy Respiratory exam: Present: respiratory distress, wheezes. Absent: rales, rhonchi, stridor Cardiovascular Exam: Present: normal rhythm, tachycardia, normal heart sounds. Absent: systolic murmur, diastolic murmur, rubs, gallop, clicks GI/Abdominal exam: Present: soft, normal bowel sounds. Absent: distended, tenderness, guarding, rebound, rigid Extremities exam: Present: normal inspection, full ROM, normal capillary refill. Absent: tenderness, pedal edema, joint swelling, calf tenderness Back exam: Present: normal inspection Neurological exam: Present: alert, oriented X3, CN II-XII intact Psychiatric exam: Present: normal affect, normal mood Skin exam: Present: warm, dry, intact, normal color. Absent: rash <Victorino Valles - Last Filed: 05/12/24 16:04> - General Exam Comments Initial Comments: Visual Physical Exam Vital signs reviewed General: Well-appearing, nontoxic, no acute distress. Head: Normocephalic, atraumatic Eyes: PERRLA, EOMI ENT: Airway patent Chest: Nonlabored breathing Skin: No visual rash, normal skin tone Neuro: Alert and oriented 3 Musculoskeletal: No gross abnormalities (Charu Altamirano) Course <Victorino Valles Contreras - Last Filed: 05/12/24 16:04> Vital Signs 05/05/24 05/05/24 05/05/24 16:36 21:21 23:02 Temperature 99.2 F Pulse Rate 103 H 77 81 Pulse Rate [ Pulse Oximetery ] Respiratory 20 18 20 Rate Blood Pressure 124/67 99/60 Blood Pressure [Left Arm] O2 Sat by Pulse 95 96 99 Oximetry 05/05/24 05/05/24 05/05/24 23:03 23:13 23:43 Temperature Pulse Rate 73 95 78 Pulse Rate [ Pulse Oximetery ] Respiratory 18 Rate Blood Pressure 132/49 Blood Pressure [Left Arm] O2 Sat by Pulse 100 Oximetry 05/06/24 05/06/24 05/06/24 01:46 02:25 02:35 Temperature Pulse Rate 58 L 74 Pulse Rate [ 68 Pulse Oximetery ] Respiratory 17 20 Rate Blood Pressure 138/93 Blood Pressure [Left Arm] O2 Sat by Pulse 97 Oximetry 05/06/24 05/06/24 05/06/24 02:44 05:00 06:09 Temperature Pulse Rate 70 55 L 64 Pulse Rate [ Pulse Oximetery ] Respiratory 17 18 Rate Blood Pressure 106/51 129/56 Blood Pressure [Left Arm] O2 Sat by Pulse 95 Oximetry 05/06/24 05/06/24 05/06/24 07:39 07:57 08:04 Temperature Pulse Rate 78 69 78 Pulse Rate [ Pulse Oximetery ] Respiratory 18 16 18 Rate Blood Pressure 139/61 Blood Pressure [Left Arm] O2 Sat by Pulse 95 Oximetry 05/06/24 05/06/24 05/06/24 12:15 12:40 12:47 Temperature Pulse Rate 70 79 80 Pulse Rate [ Pulse Oximetery ] Respiratory 18 18 18 Rate Blood Pressure 164/89 Blood Pressure [Left Arm] O2 Sat by Pulse 95 Oximetry 05/06/24 05/06/24 16:23 16:46 Temperature 97.7 F 98.4 F Pulse Rate 71 Pulse Rate [ Pulse Oximetery ] Respiratory 20 17 Rate Blood Pressure 140/65 Blood Pressure 160/71 [Left Arm] O2 Sat by Pulse 95 96 Oximetry - Reevaluation(s) Reevaluation #1: 05/05/24 22:10 Medical records reviewed (Victorino Valles) Reevaluation #2: 05/05/24 22:10 Patient states she does not feel well still very short of breath (Victorino Valles) Reevaluation #3: 05/05/24 22:10 Patient informed of results questions answered (Victorino Valles) Reevaluation #4: Was pt. sent in by a medical professional or institution (, EMMANUEL, TRAFFIC SUPERINTENDENT, urgent care, hospital, or usp...) When possible be specific @ -no Did you speak to anyone other than the patient for history (EMS, parent, family, police, friend...)? What history was obtained from this source @ -no Did you review nursing and triage notes (agree or disagree)? Why? @ -agree Are old charts reviewed (outside hosp., previous admission, EMS record, old EKG, old radiological studies, urgent care reports/EKG's, usp records)? Report findings @ -yes Differential Diagnosis (chest pain, altered mental status, abdominal pain women, abdominal pain men, vaginal bleeding, weakness, fever, dyspnea, syncope, head ache, dizziness, GI bleed, back pain, seizure, CVA, palpatations, mental health, musculoskeletal)? @ -prior EKG interpreted by me (3pts min.). @ -yes X-rays interpreted by me (1pt min.). @ -yes RSV bronchiolitis changes CHF CT interpreted by me (1pt min.). @ -no U/S interpreted by me (1pt. min.). @ -no What testing was considered but not performed or refused? (CT, X-rays, U/S, labs)? Why? @ -none What meds were considered but not given or refused? Why? @ -none Did you discuss the management of the patient with other professionals (professionals i.e. , EMMANUEL, TRAFFIC SUPERINTENDENT, lab, RT, psych nurse, delinquency prevention social worker, washing machine assembler, teacher, second officer, patient case coordinator)? Give summary @ -no Was smoking cessation discussed for >3mins.? @ -no Was critical care preformed (if so, how long)? @ -no Were there social determinants of health that impacted care today? How? (Homelessness, low income, unemployed, alcoholism, drug addiction, transportation, low edu. Level, literacy, decrease access to med. care, nursing home, rehab)? @ -none Was there de-escalation of care discussed even if they declined (Discuss DNR or withdrawal of care, Hospice)? DNR status @ -no What co-morbidities impacted this encounter? (DM, HTN, Smoking, COPD, CAD, Cancer, CVA, ARF, Chemo, Hep., AIDS, mental health diagnosis, sleep apnea, morbid obesity)? @ -none Was patient admitted / discharged? Hospital course, mention meds given and route, prescriptions, significant lab abnormalities, going to OR and other pertinent info. @ - 78 female will be admitted patient will be admitted for RSV CHF and weakness, history of KONSTANTIN on dialysis Admitted Undiagnosed new problem with uncertain prognosis? @ -no Drug Therapy requiring intensive monitoring for toxicity (Heparin, Nitro, Insulin, Cardizem)? @ -no Were any procedures done? @ -no Diagnosis/symptom? @ -RSV complicated with CHF and shortness of breath and acute kidney injury Acute, or Chronic, or Acute on Chronic? @ -Acute Uncomplicated (without systemic symptoms) or Complicated (systemic symptoms)? @ -Complicated Side effects of treatment? @ -no Exacerbation, Progression, or Severe Exacerbation? @ -exacerbation Poses a threat to life or bodily function? How? (Chest pain, USA, PA, pneumonia, PE, COPD, DKA, ARF, appy, cholecystitis, CVA, Diverticulitis, Homicidal, S uicidal, threat to staff... and all critical care pts) @ -yes extremes of age (Victorino Valles) Reevaluation #5: Differential Dyspnea: Coronary syndrome, arrhythmia, tamponade, asthma, COPD, pulmonary embolism, pneumonia, pneumothorax, pulmonary effusion, anaphylaxis, diabetic ketoacidosis, flailed chest, pulmonary contusion, diaphragmatic rupture, anemia, neuromuscular, this is not meant to be an all-inclusive list. (Victorino Valles) - Consultations Consultation #1: Spoke with [facility] who agrees to admit (Victorino Valles) EKG Findings - EKG Comments: EKG Findings:: EKG is sinus 93 WA 146 QRS 94 QTc 375 - EKG Results: EKG: interpreted by ERMD <Victorino Valles - Last Filed: 05/12/24 16:04> Medical Decision Making <Charu Altamirano - Last Filed: 05/05/24 16:42> - Lab Data Result diagrams: 05/09/24 06:26 05/09/24 06:26 - EKG Data -: EKG Interpreted by Me - Radiology Data Radiology results: report reviewed (Chest x-ray positive for CHF and RSV changes), image reviewed <Victorino Valles - Last Filed: 05/12/24 16:04> - Medical Decision Making I performed the QuickNote portion of this chart. Signed Charu Altamirano PA-C. (Charu Altamirano) 78 female will be admitted patient will be admitted for RSV CHF and weakness, history of KONSTANTIN on dialysis (Victorino Valles) - Lab Data Lab Results 05/05/24 05/05/24 05/05/24 Range/Units 19:30 19:30 19:30 WBC 9.3 (3.8-10.6) k/uL RBC 3.53 L (3.80-5.40) m/uL Hgb 11.2 L (11.4-16.0) gm/dL Hct 35.8 (34.0-46.0) % MCV 101.6 H (80.0-100.0) fL MCH 31.8 (25.0-35.0) pg MCHC 31.3 (31.0-37.0) g/dL RDW 14.3 (11.5-15.5) % Plt Count 268 (150-450) k/uL MPV 7.6 Neutrophils % 81 % Lymphocytes % 12 % Monocytes % 5 % Eosinophils % 2 % Basophils % 0 % Neutrophils # 7.5 (1.3-7.7) k/uL Lymphocytes # 1.1 (1.0-4.8) k/uL Monocytes # 0.4 (0-1.0) k/uL Eosinophils # 0.1 (0-0.7) k/uL Basophils # 0.0 (0-0.2) k/uL Macrocytosis Slight PT 9.7 L (10.0-12.5) sec INR 0.8 (<1.2) APTT 19.5 L (22.0-30.0) sec Sodium 137 (137-145) mmol/L Potassium 4.4 (3.5-5.1) mmol/L Chloride 93 L (98-107) mmol/L Carbon Dioxide 36 H (22-30) mmol/L Anion Gap 8 mmol/L BUN 40 H (7-17) mg/dL Creatinine 2.96 H (0.52-1.04) mg/dL Est GFR (CKD-EPI)AfAm 17 (>60 ml/min/1.73 sqM) Est GFR (CKD-EPI)NonAf 15 (>60 ml/min/1.73 sqM) Glucose 82 (74-99) mg/dL Plasma Lactic Acid Tulio (0.7-2.0) mmol/L Calcium 8.8 (8.4-10.2) mg/dL Magnesium 1.9 (1.6-2.3) mg/dL Total Bilirubin 1.0 (0.2-1.3) mg/dL AST 53 H (14-36) U/L ALT 31 (4-34) U/L Alkaline Phosphatase 246 H (38-126) U/L NT-Pro-B Natriuret Pep 7630 pg/mL Total Protein 7.5 (6.3-8.2) g/dL Albumin 4.1 (3.5-5.0) g/dL Influenza Type A (PCR) (Not Detectd) Influenza Type B (PCR) (Not Detectd) RSV (PCR) (Not Detectd) SARS-CoV-2 (PCR) (Not Detectd) 05/05/24 05/05/24 Range/Units 19:30 19:30 WBC (3.8-10.6) k/uL RBC (3.80-5.40) m/uL Hgb (11.4-16.0) gm/dL Hct (34.0-46.0) % MCV (80.0-100.0) fL MCH (25.0-35.0) pg MCHC (31.0-37.0) g/dL RDW (11.5-15.5) % Plt Count (150-450) k/uL MPV Neutrophils % % Lymphocytes % % Monocytes % % Eosinophils % % Basophils % % Neutrophils # (1.3-7.7) k/uL Lymphocytes # (1.0-4.8) k/uL Monocytes # (0-1.0) k/uL Eosinophils # (0-0.7) k/uL Basophils # (0-0.2) k/uL Macrocytosis PT (10.0-12.5) sec INR (<1.2) APTT (22.0-30.0) sec Sodium (137-145) mmol/L Potassium (3.5-5.1) mmol/L Chloride (98-107) mmol/L Carbon Dioxide (22-30) mmol/L Anion Gap mmol/L BUN (7-17) mg/dL Creatinine (0.52-1.04) mg/dL Est GFR (CKD-EPI)AfAm (>60 ml/min/1.73 sqM) Est GFR (CKD-EPI)NonAf (>60 ml/min/1.73 sqM) Glucose (74-99) mg/dL Plasma Lactic Acid Tulio 1.7 (0.7-2.0) mmol/L Calcium (8.4-10.2) mg/dL Magnesium (1.6-2.3) mg/dL Total Bilirubin (0.2-1.3) mg/dL AST (14-36) U/L ALT (4-34) U/L Alkaline Phosphatase (38-126) U/L NT-Pro-B Natriuret Pep pg/mL Total Protein (6.3-8.2) g/dL Albumin (3.5-5.0) g/dL Influenza Type A (PCR) Not Detected (Not Detectd) Influenza Type B (PCR) Not Detected (Not Detectd) RSV (PCR) Detected A (Not Detectd) SARS-CoV-2 (PCR) Not Detected (Not Detectd) Disposition <Charu Altamirano - Last Filed: 05/05/24 16:42> Is patient prescribed a controlled substance at d/c from ED?: No Time of Disposition: 22:00 <Victorino Valles - Last Filed: 05/12/24 16:04> Clinical Impression: Weakness, Congestive heart failure, RSV bronchiolitis Disposition: ADMITTED IP TO THIS HOSP Condition: Fair
--- NOTE | 2024-05-05 17:27 | XR ---
EXAMINATION TYPE: XR chest 2V DATE OF EXAM: 05/05/2024 5:01 PM COMPARISON: None CLINICAL INDICATION: Female, 78 years old with history of difficulty breathing; MERGED WITH [facility] TECHNIQUE: XR chest 2V Frontal and lateral views of the chest. FINDINGS: Lungs/Pleura: There is no evidence of pleural effusion, focal consolidation, or pneumothorax. Pulmonary vascularity: Pulmonary vascular congestion. Heart/mediastinum: Cardiomediastinal silhouette is enlarged. Musculoskeletal: No acute osseous pathology. IMPRESSION: Cardiomegaly and mild pulmonary vascular congestion. Correlate with BNP for congestive heart failure. [facility], , 05/05/2024 5:25 PM
[2024-05-05 20:05] LABS: INR 0.8 (<1.2); Prothrombin Time 9.7 sec (10.0-12.5)
[2024-05-05 20:06] LABS: Basophils % (A) 0 %; Eosinophils # (A) 0.1 k/uL (0-0.7); Eosinophils % (A) 2 %; HCT 35.8 % (34.0-46.0); HGB 11.2 gm/dL (11.4-16.0); Lymphocytes # (A) 1.1 k/uL (1.0-4.8); Lymphocytes % (A) 12 %; MCH 31.8 pg (25.0-35.0); MCHC 31.3 g/dL (31.0-37.0); MCV 101.6 fL (80.0-100.0); Macrocytosis Slight; Mean Platelet Volume 7.6; Monocytes # (A) 0.4 k/uL (0-1.0); Monocytes % (A) 5 %; Neutrophils # (A) 7.5 k/uL (1.3-7.7); Neutrophils % (A) 81 %; Platelet Count 268 k/uL (150-450); RBC 3.53 m/uL (3.80-5.40); RDW 14.3 % (11.5-15.5); WBC 9.3 k/uL (3.8-10.6)
[2024-05-05 20:09] LABS: Partial Thromboplastin Time 19.5 sec (22.0-30.0)
[2024-05-05 20:11] LABS: ALT 31 U/L (4-34); AST 53 U/L (14-36); African American GFR (CKD) 17 (>60 ml/min/1.73 sqM); Albumin 4.1 g/dL (3.5-5.0); Alkaline Phosphatase 246 U/L (38-126); Anion Gap 8 mmol/L; Blood Urea Nitrogen 40 mg/dL (7-17); Calcium 8.8 mg/dL (8.4-10.2); Carbon Dioxide 36 mmol/L (22-30); Chloride 93 mmol/L (98-107); Glucose 82 mg/dL (74-99); Magnesium 1.9 mg/dL (1.6-2.3); Non-African American GFR(CKD) 15 (>60 ml/min/1.73 sqM); Potassium 4.4 mmol/L (3.5-5.1); Sodium 137 mmol/L (137-145); Total Protein 7.5 g/dL (6.3-8.2)
[2024-05-05 20:19] LABS: NT-Pro-B-Type Natriuretic Pept 7630 pg/mL
[2024-05-05 20:37] LABS: Influenza A Not Detected (Not Detectd); Influenza B Not Detected (Not Detectd); RSV Detected (Not Detectd)
[2024-05-05] MEDS ORDERED: NALOXONE 0.4 MG/ML 1 ML VIAL IV PRN (22:06)
[2024-05-05] MEDS: DEXAMETHASONE SOD PHOSPHATE 10 MG/ML 1 ML VIAL IVP STA (22:52)
[2024-05-05] MEDS: FUROSEMIDE 10 MG/ML 10 ML VIAL IV STA (22:52)
[2024-05-05] MEDS: IPRATROPIUM-ALBUTEROL 3 ML NEB INHALATION STA (23:02)
[2024-05-06] MEDS: IPRATROPIUM-ALBUTEROL 3 ML NEB INHALATION PRN (02:35)
[2024-05-06 06:59] LABS: Basophils % (A) 0 %; Eosinophils % (A) 0 %; HCT 32.8 % (34.0-46.0); HGB 10.4 gm/dL (11.4-16.0); Hypochromasia Moderate; Lymphocytes # (A) 0.4 k/uL (1.0-4.8); Lymphocytes % (A) 5 %; MCH 32.6 pg (25.0-35.0); MCHC 31.7 g/dL (31.0-37.0); MCV 102.9 fL (80.0-100.0); Macrocytosis Slight; Mean Platelet Volume 7.5; Monocytes # (A) 0.1 k/uL (0-1.0); Monocytes % (A) 2 %; Neutrophils # (A) 6.4 k/uL (1.3-7.7); Neutrophils % (A) 92 %; Platelet Count 218 k/uL (150-450); RBC 3.19 m/uL (3.80-5.40); RDW 13.8 % (11.5-15.5); WBC 6.9 k/uL (3.8-10.6)
[2024-05-06 07:12] LABS: ALT 33 U/L (4-34); AST 48 U/L (14-36); African American GFR (CKD) 12 (>60 ml/min/1.73 sqM); Albumin 3.7 g/dL (3.5-5.0); Alkaline Phosphatase 254 U/L (38-126); Anion Gap 8 mmol/L; Blood Urea Nitrogen 47 mg/dL (7-17); Calcium 8.7 mg/dL (8.4-10.2); Carbon Dioxide 33 mmol/L (22-30); Chloride 92 mmol/L (98-107); Glucose 202 mg/dL (74-99); Non-African American GFR(CKD) 10 (>60 ml/min/1.73 sqM); Phosphorus 4.5 mg/dL (2.5-4.5); Sodium 133 mmol/L (137-145); Total Bilirubin 0.7 mg/dL (0.2-1.3); Total Protein 6.6 g/dL (6.3-8.2)
[2024-05-06] MEDS: MORPHINE SULFATE 4 MG/ML SYRINGE IV PRN (07:35)
--- NOTE | 2024-05-06 14:46 | P.CNPUL ---
History of Present Illness Consult date: 05/06/24 Requesting physician: Gautam Rizvi Reason for consult: dyspnea, cough, abnormal CXR/CT Chief complaint: Cough, shortness of breath. History of present illness: Pulmonary consult dated May 06, 2024. 78-year-old female seen in the emergency department, room 11. For the last week or so, the patient has been complaining of cough, and shortness of breath. She came into the emergency room to be evaluated. The patient tested positive for RSV. She has an extensive past medical history. She sees Dr. Rizvi, and also follows with cardiology, nephrology, and urology. The patient is not a smoker. Interestingly, she does have a nebulizer machine at home but apparently has never been diagnosed with a lung condition. She uses albuterol in the nebulizer machine at home. The patient has a history of end-stage renal disease, usually requiring hemodialysis on Sunday, diabetes mellitus, hyperlipidemia, hypertension, myocardial infarction, hypothyroidism, obesity, and previous cerebral hemorrhage. The patient has a right upper extremity fistula. The patient is resting comfortably in the emergency department. She is not receiving any IV fluids. She is on room air. Her chest x-ray shows an elevated right diaphragm, and some changes of mild CHF. Her BNP was elevated at 7630. White count 6.9, hemoglobin 10.4, hematocrit 32.8, and platelet count normal. Sodium 133, potassium 5, chloride 92, CO2 33, anion gap 8, BUN 47, creatinine 3.93. Glucose is 202. AST 48. Alkaline phosphatase 254. N- terminal proBNP is 7630. She did test positive for RSV. Chest x-ray has been evaluated. Review of Systems REVIEW OF SYSTEMS: CONSTITUTIONAL: [Negative.] NEUROLOGIC: [ Negative.] HEENT: [ Negative.] CARDIAC: [Negative.] PULMONARY: Cough and shortness of breath. GI: [Negative.] : [Negative.] RHEUMATOLOGIC: [ Negative.] IMMUNOLOGIC: [ Negative.] ENDOCRINE: [Negative. ] DERMATOLOGIC: [Negative.] Past Medical History Past Medical History: Asthma, Cancer, COPD, Dialysis, Hyperlipidemia, Hypertension, Myocardial Infarction ([place]), Osteoarthritis (OA), Pneumonia, Renal Disease, Thyroid Disorder Additional Past Medical History / Comment(s): Hx Uterine cancer 25 yrs ago, hemodialysis Sun, Sun and Sun, varicose veins., "mild heart attack"" "brain bleed twice" -> CVA chronic diarrhea, hx "18 polyps", "chronic back pain", anemia, current edema kashif feet Last Myocardial Infarction Date:: unknown History of Any Multi-Drug Resistant Organisms: None Reported, ESBL Date of last positivie culture/infection: 04/30/24 MDRO Source:: urine Past Surgical History: Appendectomy, Bariatric Surgery, Cholecystectomy, Hysterectomy, Joint Replacement, Tonsillectomy Additional Past Surgical History / Comment(s): gastric bypass, surgery after fall -fx rt leg and foot, kashif knee replacement, kashif cataracts, surgery x 2 or "brain bleed", fistula for dialysis, COLONOSCOPY Past Anesthesia/Blood Transfusion Reactions: No Reported Reaction, Family History of Problems w/ Anesthesia Additional Past Anesthesia/Blood Transfusion Reaction / Comment(s): MOTHER PONV Past Psychological History: No Psychological Hx Reported Smoking Status: Former smoker Past Alcohol Use History: None Reported Past Drug Use History: None Reported - Past Family History Mother Family Medical History: Cancer Father Family Medical History: Diabetes Mellitus, Hypertension Sister(s) Family Medical History: Cancer Medications and Allergies Home Medications Medication Instructions Recorded Confirmed Type Calcium Acetate 1,334 mg PO TID-W/MEALS 12/22/19 05/06/24 History oxyCODONE-APAP 10-325MG [Percocet 1 tab PO TID PRN 02/18/22 05/06/24 History 10-325 mg] Albuterol Inhaler [Ventolin Hfa 2 puff INHALATION RT-QID PRN 06/15/22 05/06/24 History Inhaler] Acetaminophen Tab [Tylenol] 650 mg PO Q4HR PRN tab 01/22/23 05/06/24 Rx Folic Acid/Vit B Complex and C 0.8 mg PO HS 08/27/23 05/06/24 History [Nephro-Karla Tablet] Lidocaine-Prilocaine Cream [Emla 1 applic TOPICAL MOWEFR PRN 08/27/23 05/06/24 History Cream 2.5%/2.5%] Furosemide [Lasix] 80 mg PO DAILY 12/31/23 05/06/24 History Metoprolol Succinate (ER) [Toprol 12.5 mg PO HS #30 tab 01/02/24 05/06/24 Rx XL] Fluticasone Propionate [Flonase 2 spray EA NOSTRIL DAILY PRN 05/06/24 05/06/24 History Allergy Relief] Ipratropium-Albuterol Nebulize 3 ml INHALATION RT-TID PRN 05/06/24 05/06/24 History [Duoneb 0.5 mg-3 mg/3 ml Soln] Sulfamethox-Tmp 800-160Mg [Bactrim 0.5 tab PO BID 05/06/24 05/06/24 History DS 800-160 mg] Vitamin B Complex 1 cap PO HS 05/06/24 05/06/24 History Allergies Allergy/AdvReac Type Severity Reaction Status Date / Time cefuroxime Allergy Rash/Hives Verified 05/06/24 08:30 naproxen [From Naprosyn] Allergy Dyspnea Verified 05/06/24 08:30 blood thinner Allergy "brain Uncoded 05/05/24 16:40 bleed" Physical Exam Osteopathic Statement: *. No significant issues noted on an osteopathic structural exam other than those noted in the History and Physical/Consult. Vitals: Vital Signs Temp Pulse Resp BP Pulse Ox 05/06/24 12:47 80 18 05/06/24 12:40 79 18 05/06/24 12:15 70 18 164/89 95 05/06/24 08:04 78 18 05/06/24 07:57 69 16 05/06/24 07:39 78 18 139/61 95 05/06/24 06:09 64 18 129/56 95 05/06/24 05:00 55 L 17 106/51 05/06/24 02:44 70 05/06/24 02:35 74 05/06/24 02:25 58 L 20 138/93 97 05/05/24 23:43 78 18 132/49 100 05/05/24 23:13 95 05/05/24 23:03 73 05/05/24 23:02 81 20 99/60 99 05/05/24 21:21 77 18 124/67 96 05/05/24 16:36 99.2 F 103 H 20 95 Intake and Output 05/05/24 05/06/24 05/06/24 22:59 06:59 14:59 Other: Weight 102.058 kg No acute distress, oriented 3. No respiratory distress. Her cough is wet and congested. She is currently on room air. HEENT examination is grossly unremarkable. Mucous membranes are moist. No oral lesions. Neck supple. Full range of motion. No adenopathy thyromegaly or neck vein distention. Cardiovascular examination reveals regular rhythm rate. S1-S2 normal. No S3 or S4. No discernible murmur noted. Heart sounds are distant. Lungs reveal scattered bilateral rhonchi. No wheezes. No crackles. Breath sounds are equal. Abdomen soft bowel sounds are heard. No masses or tenderness. Extremities are intact. No cyanosis clubbing or edema. Patient has an AV fistula in the right upper extremity. Skin is without rash or lesion. Neurologic examination is brief but nonfocal. Results - Laboratory Findings CBC and BMP: 05/06/24 06:26 05/06/24 06:26 PT/INR, D-dimer PT 9.7 sec (10.0-12.5) L 05/05/24 19:30 INR 0.8 (<1.2) 05/05/24 19:30 Abnormal lab findings: Abnormal Labs 05/05/24 05/05/24 05/05/24 19:30 19:30 19:30 RBC 3.53 L Hgb 11.2 L Hct MCV 101.6 H Lymphocytes # PT 9.7 L APTT 19.5 L Sodium Chloride 93 L Carbon Dioxide 36 H BUN 40 H Creatinine 2.96 H Glucose AST 53 H Alkaline Phosphatase 246 H RSV (PCR) 05/05/24 05/06/24 05/06/24 19:30 06:26 06:26 RBC 3.19 L Hgb 10.4 L Hct 32.8 L MCV 102.9 H Lymphocytes # 0.4 L PT APTT Sodium 133 L Chloride 92 L Carbon Dioxide 33 H BUN 47 H Creatinine 3.93 H Glucose 202 H AST 48 H Alkaline Phosphatase 254 H RSV (PCR) Detected A - Diagnostic Findings Chest x-ray: image reviewed Assessment and Plan Assessment: Acute viral bronchitis, secondary to RSV infection. History of end-stage renal disease, currently on Sunday, Sunday, Sunday hemodialysis. History of hypertension. History of myocardial infarction. History of hyperlipidemia. History of diabetes mellitus. History of hypothyroidism. Prior history of cerebral hemorrhage. Obesity. Plan: Plan dated May 06, 2024. The patient is seen today in the emergency department, room 11. Not sure why this patient is being admitted. She has a nebulizer machine with albuterol at home. She could certainly use that. She could be discharged with some corticosteroid, to be taken at home. She is currently on room air, and no respiratory distress. She is not receiving any IV fluids. Labs, x-rays, and medications are all reviewed. Prognosis is thought to be generally good. She has no prior history of any lung disease. Not quite sure why she has a nebuliz er machine at home, as it was given to her when she was seeing doctors in [place]. Dictation was produced using [employer] dictation software. Please excuse any grammatical, word or spelling errors. Time with Patient: Greater than 30
[2024-05-06] MEDS: IPRATROPIUM-ALBUTEROL 3 ML NEB INHALATION SCH (16:45)
--- NOTE | 2024-05-06 17:12 | CA ---
Transthoracic Echo Report Name: Barb Mohr Age: 78 Gender: F : 1945 Exam Date: 05/06/2024 13:31 Exam Location: [place] [facility] Ht (in): 63 Wt (lb): 225 Ordering Physician: Lizett Choe MD Attending/Referring Phys: [id number], Daija [employer] Kaur Rodriguez, ZENOBIA Procedure CPT: Indications: chf Cardiac Hx: NE, COPD, HTN, Cancer Technical Quality: Good Contrast 1: Total Dose (mL): Contrast 2: Total Dose (mL): MEASUREMENTS (Male / Female) Normal Values 2D ECHO LV Diastolic Diameter PLAX 5.6 cm 4.2 - 5.9 / 3.9 - 5.3 cm LV Systolic Diameter PLAX 3.5 cm IVS Diastolic Thickness 1.1 cm 0.6 - 1.0 / 0.6 - 0.9 cm LVPW Diastolic Thickness 1.1 cm 0.6 - 1.0 / 0.6 - 0.9 cm LV Relative Wall Thickness 0.4 RV Internal Dim ED PLAX 3.3 cm LVOT Diameter 1.5 cm LA Systolic Diameter LX 3.7 cm 3.0 - 4.0 / 2.7 - 3.8 cm LV Diastolic Volume MOD 4C 127.5 cm??? LV Systolic Volume MOD 4C 63.5 cm??? LV Ejection Fraction MOD 4C 50.3 % LV Diastolic Length 4C 7.9 cm LV Systolic Length 4C 6.6 cm LA Volume 89.9 cm??? 18 - 58 / 22 - 52 cm??? LA Volume Index 41.2 cm???/m??? 16 - 28 cm???/m??? DOPPLER AV Peak Velocity 303.6 cm/s AV Peak Gradient 36.9 mmHg AV Mean Velocity 196.2 cm/s AV Mean Gradient 17.0 mmHg AV Velocity Time Integral 61.7 cm MV Peak Velocity 164.0 cm/s MV Peak Gradient 10.8 mmHg MV Mean Velocity 88.7 cm/s MV Mean Gradient 4.0 mmHg MV Velocity Time Integral 48.6 cm MV Area PHT 2.5 cm??? Mitral E Point Velocity 120.9 cm/s Mitral A Point Velocity 128.9 cm/s Mitral E to A Ratio 0.9 MV Deceleration Time 266.7 ms TR Peak Velocity 310.4 cm/s TR Peak Gradient 38.5 mmHg FINDINGS Left Ventricle Left ventricular ejection fraction is estimated at 50-55%. Mildly increased septal wall thickness. Mildly increased posterior wall thickness. Mildly increased left ventricular diastolic diameter. No obvious regional wall motion abnormalities. Right Ventricle Mild right ventricular dilatation. Unable to estimate the right ventricular systolic pressure. Right Atrium Normal right atrial size. Left Atrium Severely increased left atrial volume. Mildly increased left atrial area. Mitral Valve Mitral valve thickened. Mild mitral stenosis. Trace mitral regurgitation. Aortic Valve Trileaflet aortic valve. Diffuse thickening of the aortic valve cusps with reduced excursion. Mild to moderate aortic stenosis with a peak gradient of 30 mmHg and a mean gradient of 17 mmHg. No aortic regurgitation. Tricuspid Valve Structurally normal tricuspid valve. No tricuspid stenosis. Mild tricuspid regurgitation. Pulmonic Valve Structurally normal pulmonic valve. No pulmonic stenosis. No pulmonic regurgitation. Pericardium No pericardial effusion. No pleural effusion. Aorta Normal size aortic root and proximal ascending aorta. CONCLUSIONS Normal LV systolic function Mild to moderate aortic stenosis Previewed by: Dr. Aries Espana MD (Electronically Signed) Final Date: 06 May 2024 17:11
[2024-05-06] MEDS ORDERED: LIDOCAINE-PRILOCAINE 2.5-2.5% CREAM 5 GM TUBE TOPICAL PRN (19:52)
[2024-05-06] MEDS ORDERED: IPRATROPIUM-ALBUTEROL 3 ML NEB INHALATION PRN (19:52)
[2024-05-06] MEDS ORDERED: FLUTICASONE NASAL 50MCG/SPRAY 16GM BTL EA NOSTRIL PRN (19:52)
[2024-05-06] MEDS ORDERED: ALBUTEROL NEBULIZED 2.5 MG/3 ML INHALATION PRN (19:52)
[2024-05-06] MEDS ORDERED: NON FORMULARY DRUG (Vitamin B Complex [Vitamin B Complex] 1 EACH Capsule) PO SCH (21:00)
[2024-05-06] MEDS: FOLIC ACID-VIT B COMPLEX-VIT C 1 CAP PO SCH (21:10)
[2024-05-06] MEDS: METOPROLOL SUCCINATE (ER) 25 MG TAB.ER.24H PO SCH (21:11)
[2024-05-07] MEDS: CALCIUM ACETATE 667 MG TAB PO SCH (06:52)
[2024-05-07] MEDS: predniSONE 10 MG TAB PO SCH (08:01)
[2024-05-07] MEDS: FUROSEMIDE 80 MG TAB PO SCH (08:01)
[2024-05-07] MEDS: ONDANSETRON 4 MG/2 ML VIAL IVP PRN (08:01)
[2024-05-07] MEDS: oxyCODONE-APAP 10-325MG 1 EACH TAB PO PRN (08:01)
--- NOTE | 2024-05-07 10:29 | P.NPCON ---
History of Present Illness - Reason for Consult end stage renal disease - History of Present Illness Reason for consultation: End-stage renal disease History of present illness: Patient is a 78-year-old female seen in renal consultation for end-stage renal disease. She is maintained on hemodialysis on Sunday schedule. Last dialysis was Sunday. Patient states since the weekend she has been having a productive cough with yellow phlegm. She denies fever. Does feel weak. Patient has chronic loose bowel movements. Denies vomiting. She did test positive for RSV. She is currently on room air. Patient states she does make urine. She denies history of diabetes or coronary artery disease. Denies chest pain. Scheduled for dialysis today. Vital signs are stable. General: No acute distress. HEENT: Head exam is unremarkable. LUNGS: No audible rhonchi or wheezes. HEART: Rate and Rhythm are regular. ABDOMEN: Obese, nontender. EXTREMITITES: Trace edema. Past Medical History Past Medical History: Asthma, Cancer, COPD, Dialysis, Hyperlipidemia, Hypertension, Myocardial Infarction ([place]), Osteoarthritis (OA), Pneumonia, Renal Disease, Thyroid Disorder Additional Past Medical History / Comment(s): Hx Uterine cancer 25 yrs ago, hemodialysis Sun, Sun and Sun, varicose veins., "mild heart attack"" "brain bleed twice" -> CVA chronic diarrhea, hx "18 polyps", "chronic back pain", anemia, current edema kashif feet Last Myocardial Infarction Date:: unknown History of Any Multi-Drug Resistant Organisms: None Reported, ESBL Date of last positivie culture/infection: 04/30/24 MDRO Source:: urine Past Surgical History: Appendectomy, Bariatric Surgery, Cholecystectomy, Hysterectomy, Joint Replacement, Tonsillectomy Additional Past Surgical History / Comment(s): gastric bypass, surgery after fall -fx rt leg and foot, kashif knee replacement, kashif cataracts, surgery x 2 or "brain bleed", fistula for dialysis, COLONOSCOPY Past Anesthesia/Blood Transfusion Reactions: No Reported Reaction, Family History of Problems w/ Anesthesia Additional Past Anesthesia/Blood Transfusion Reaction / Comment(s): MOTHER PONV Past Psychological History: No Psychological Hx Reported Smoking Status: Former smoker Past Alcohol Use History: None Reported Additional Past Alcohol Use History / Comment(s): Quit smoking 30+ yrs ago. Past Drug Use History: None Reported - Past Family History Mother Family Medical History: Cancer Father Family Medical History: Diabetes Mellitus, Hypertension Sister(s) Family Medical History: Cancer Medications and Allergies Home Medications Medication Instructions Recorded Confirmed Type Calcium Acetate 1,334 mg PO TID-W/MEALS 12/22/19 05/06/24 History oxyCODONE-APAP 10-325MG [Percocet 1 tab PO TID PRN 02/18/22 05/06/24 History 10-325 mg] Albuterol Inhaler [Ventolin Hfa 2 puff INHALATION RT-QID PRN 06/15/22 05/06/24 History Inhaler] Acetaminophen Tab [Tylenol] 650 mg PO Q4HR PRN tab 01/22/23 05/06/24 Rx Folic Acid/Vit B Complex and C 0.8 mg PO HS 08/27/23 05/06/24 History [Nephro-Karla Tablet] Lidocaine-Prilocaine Cream [Emla 1 applic TOPICAL MOWEFR PRN 08/27/23 05/06/24 History Cream 2.5%/2.5%] Furosemide [Lasix] 80 mg PO DAILY 12/31/23 05/06/24 History Metoprolol Succinate (ER) [Toprol 12.5 mg PO HS #30 tab 01/02/24 05/06/24 Rx XL] Fluticasone Propionate [Flonase 2 spray EA NOSTRIL DAILY PRN 05/06/24 05/06/24 History Allergy Relief] Ipratropium-Albuterol Nebulize 3 ml INHALATION RT-TID PRN 05/06/24 05/06/24 History [Duoneb 0.5 mg-3 mg/3 ml Soln] Sulfamethox-Tmp 800-160Mg [Bactrim 0.5 tab PO BID 05/06/24 05/06/24 History DS 800-160 mg] Vitamin B Complex 1 cap PO HS 05/06/24 05/06/24 History Allergies Allergy/AdvReac Type Severity Reaction Status Date / Time cefuroxime Allergy Rash/Hives Verified 05/06/24 08:30 naproxen [From Naprosyn] Allergy Dyspnea Verified 05/06/24 08:30 blood thinner Allergy "brain Uncoded 05/05/24 16:40 bleed" Physical Exam Vitals: Vital Signs Temp Pulse Pulse Resp BP BP Pulse Ox 05/07/24 09:10 76 03/26/25 09:03 96 05/07/24 09:00 72 05/07/24 07:55 98.3 F 112 H 16 190/77 96 05/07/24 01:52 97.4 F L 65 18 138/69 94 L 05/06/24 21:09 76 05/06/24 21:00 72 05/06/24 19:04 97.4 F L 68 17 130/61 94 L 05/06/24 16:46 98.4 F 17 160/71 96 05/06/24 16:23 97.7 F 71 20 140/65 95 05/06/24 12:47 80 18 05/06/24 12:40 79 18 05/06/24 12:15 70 18 164/89 95 FiO2 05/07/24 09:10 05/07/24 09:03 21 05/07/24 09:00 05/07/24 07:55 05/07/24 01:52 05/06/24 21:09 05/06/24 21:00 05/06/24 19:04 05/06/24 16:46 05/06/24 16:23 05/06/24 12:47 05/06/24 12:40 05/06/24 12:15 Intake and Output 05/06/24 05/07/24 05/07/24 22:59 06:59 14:59 Intake Total 600 Balance 600 Intake: Oral 600 Other: # Voids 1 1 Weight 102.058 kg Results - Lab Results Most recent lab results Calcium 8.7 mg/dL (8.4-10.2) 05/06/24 06:26 Phosphorus 4.5 mg/dL (2.5-4.5) 05/06/24 06:26 Magnesium 2.0 mg/dL (1.6-2.3) 05/06/24 06:26 05/06/24 06:26 05/06/24 06:26 Assessment and Plan Plan: Assessment: 1. End-stage renal disease maintained on hemodialysis on Sunday schedule. 2. Acute bronchitis secondary to RSV infection. 3. Acute on chronic diastolic CHF and mild to moderate aortic stenosis. 4. 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 5. Volume overload. 6. History of cerebral hemorrhage. Plan: Hemodialysis today. Maintain Lasix. Thank you for the consultation. I will continue to follow the patient with you during her hospital stay.
--- NOTE | 2024-05-07 11:44 | P.CRDCN ---
History of Present Illness History of present illness: HISTORY OF PRESENT ILLNESS: This is a 78-year-old female with a past medical history significant for end- stage renal disease on hemodialysis, hypertension, hyperlipidemia, diabetes, obesity, and mild aortic stenosis. Patient follows in the office with Dr. Salter. We have been asked to see the patient in consultation for congestive heart failure. Patient examined at the bedside. Patient presented to the hospital with a chief complaint of shortness of breath. Patient was found to be positive for RSV. Patient states she is on hemodialysis Sunday and Sunday. She denies missing any treatments of her dialysis. She is maintained on oral diuretics. Vital signs are stable. DIAGNOSTICS: - EKG reveals sinus mechanism with no signs of acute ischemia. - Chest xray cardiomegaly and mild pulmonary vascular congestion - Laboratory data: WBC 6.9. Hemoglobin 10.4. Platelet count 218. Sodium 133. Potassium 5.0. BUN 47. Creatinine 3.93. proBNP 7630. - Current home cardiac medications include metoprolol succinate 12.5 mg at night and Lasix 80 mg daily. - Echocardiogram obtained this admission reveals ejection fraction 50 to 55%, no obvious regional wall motion abnormalities, mild to moderate aortic stenosis -Patient underwent Lexiscan stress test in August 2023 which was negative for stress-induced ischemic changes REVIEW OF SYSTEMS: At the time of my exam: CONSTITUTIONAL: Denies fever or chills. HEENT: Denies blurred vision, vision changes, or eye pain. Denies hemoptysis CARDIOVASCULAR: Denies chest pain. Denies orthopnea. Denies PND. Denies palpitations RESPIRATORY: Denies shortness of breath. GASTROINTESTINAL: Denies abdominal pain. Denies nausea or vomiting. HEMATOLOGIC: Denies bleeding disorders. GENITOURINARY: Denies any blood in urine. SKIN: Denies pruitis. Denies rash. PHYSICAL EXAM: VITAL SIGNS: Reviewed. GENERAL: Well-developed in no acute distress. HEENT: Head is normocephalic. Pupils are equal, round. Sclerae anicteric. Mucous membranes of the mouth are moist. Neck supple. No JVD or thyromegaly LUNGS: Respirations even and unlabored. Lungs diminished bilaterally HEART: Regular rate and rhythm. S1 and S2 heard. ABDOMEN: Soft. Nondistended. Nontender. EXTREMITIES: Normal range of motion. No clubbing or cyanosis. Peripheral pulses intact. No lower extremity edema NEUROLOGIC: Awake and alert. Oriented x 3. ASSESSMENT: Shortness of breath Acute RSV End-stage renal disease on hemodialysis Acute on chronic heart failure with preserved EF Mild to moderate aortic stenosis Hypertension Hyperlipidemia Diabetes Obesity: BMI 39.9 PLAN: 2D echo obtained and reviewed Continue current cardiac medications Continue oral diuretics Continue hemodialysis per nephrology Patient is currently stable from a cardiac standpoint Further recommendations pending patient course Nurse practitioner note has been reviewed by physician. Signing provider agrees with the documented findings, assessment, and plan of care documented by PROGRAM OFFICER as a scribe. 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 chronic diarrhea, hx "18 polyps", "chronic back pain", anemia, current edema kashif feet Last Myocardial Infarction Date:: unknown History of Any Multi-Drug Resistant Organisms: None Reported, ESBL Date of last positivie culture/infection: 04/30/24 MDRO Source:: urine Past Surgical History: Appendectomy, Bariatric Surgery, Cholecystectomy, Hysterectomy, Joint Replacement, Tonsillectomy Additional Past Surgical History / Comment(s): gastric bypass, surgery after fall -fx rt leg and foot, kashif knee replacement, kashif cataracts, surgery x 2 or "brain bleed", fistula for dialysis, COLONOSCOPY Past Anesthesia/Blood Transfusion Reactions: No Reported Reaction, Family History of Problems w/ Anesthesia Additional Past Anesthesia/Blood Transfusion Reaction / Comment(s): MOTHER PONV Past Psychological History: No Psychological Hx Reported Smoking Status: Former smoker Past Alcohol Use History: None Reported Additional Past Alcohol Use History / Comment(s): Quit smoking 30+ yrs ago. Past Drug Use History: None Reported - Past Family History Mother Family Medical History: Cancer Father Family Medical History: Diabetes Mellitus, Hypertension Sister(s) Family Medical History: Cancer Medications and Allergies Home Medications Medication Instructions Recorded Confirmed Type Calcium Acetate 1,334 mg PO TID-W/MEALS 12/22/19 05/06/24 History oxyCODONE-APAP 10-325MG [Percocet 1 tab PO TID PRN 02/18/22 05/06/24 History 10-325 mg] Albuterol Inhaler [Ventolin Hfa 2 puff INHALATION RT-QID PRN 06/15/22 05/06/24 History Inhaler] Acetaminophen Tab [Tylenol] 650 mg PO Q4HR PRN tab 01/22/23 05/06/24 Rx Folic Acid/Vit B Complex and C 0.8 mg PO HS 08/27/23 05/06/24 History [Nephro-Karla Tablet] Lidocaine-Prilocaine Cream [Emla 1 applic TOPICAL MOWEFR PRN 08/27/23 05/06/24 History Cream 2.5%/2.5%] Furosemide [Lasix] 80 mg PO DAILY 12/31/23 05/06/24 History Metoprolol Succinate (ER) [Toprol 12.5 mg PO HS #30 tab 01/02/24 05/06/24 Rx XL] Fluticasone Propionate [Flonase 2 spray EA NOSTRIL DAILY PRN 05/06/24 05/06/24 History Allergy Relief] Ipratropium-Albuterol Nebulize 3 ml INHALATION RT-TID PRN 05/06/24 05/06/24 History [Duoneb 0.5 mg-3 mg/3 ml Soln] Sulfamethox-Tmp 800-160Mg [Bactrim 0.5 tab PO BID 05/06/24 05/06/24 History DS 800-160 mg] Vitamin B Complex 1 cap PO HS 05/06/24 05/06/24 History Allergies Allergy/AdvReac Type Severity Reaction Status Date / Time cefuroxime Allergy Rash/Hives Verified 05/06/24 08:30 naproxen [From Naprosyn] Allergy Dyspnea Verified 05/06/24 08:30 blood thinner Allergy "brain Uncoded 05/05/24 16:40 bleed" Physical Exam Vitals: Vital Signs Temp Pulse Pulse Resp BP BP Pulse Ox 05/07/24 09:10 76 05/07/24 09:03 96 05/07/24 09:00 72 05/07/24 07:55 98.3 F 112 H 16 190/77 96 05/07/24 01:52 97.4 F L 65 18 138/69 94 L 05/06/24 21:09 76 05/06/24 21:00 72 05/06/24 19:04 97.4 F L 68 17 130/61 94 L 05/06/24 16:46 98.4 F 17 160/71 96 05/06/24 16:23 97.7 F 71 20 140/65 95 05/06/24 12:47 80 18 05/06/24 12:40 79 18 05/06/24 12:15 70 18 164/89 95 FiO2 05/07/24 09:10 05/07/24 09:03 21 05/07/24 09:00 05/07/24 07:55 05/07/24 01:52 05/06/24 21:09 05/06/24 21:00 05/06/24 19:04 05/06/24 16:46 05/06/24 16:23 05/06/24 12:47 05/06/24 12:40 05/06/24 12:15 Intake and Output 05/06/24 05/07/24 05/07/24 22:59 06:59 14:59 Intake Total 600 200 Balance 600 200 Intake: Oral 600 200 Other: # Voids 1 1 Weight 102.058 kg Results 05/06/24 06:26 05/06/24 06:26 Current Medications Generic Name Dose Route Start Last Admin Trade Name Freq PRN Reason Stop Dose Admin Acetaminophen 650 mg 05/06/24 19:52 Acetaminophen Tab 325 Mg Tab PO Q4HR PRN Fever>101 Albuterol Sulfate 2.5 mg 05/06/24 19:52 Albuterol Nebulized 2.5 Mg/3 Ml INHALATION RT-QID PRN Shortness Of Breath Albuterol/Ipratropium 3 ml 05/06/24 16:00 05/07/24 09:00 Ipratropium-Albuterol 3 Ml Neb INHALATION 3 ml RT-QID WILFREDO Administration Albuterol/Ipratropium 3 ml 05/06/24 19:52 Ipratropium-Albuterol 3 Ml Neb INHALATION RT-TID PRN Shortness Of Breath Calcium Acetate 1,334 mg 05/07/24 07:30 05/07/24 06:52 Calcium Acetate 667 Mg Tab PO 1,334 mg TID-W/MEALS WILFREDO Administration Fluticasone Propionate 2 spray 05/06/24 19:52 Fluticasone Nasal 50mcg/[place] 16gm Btl EA NOSTRIL DAILY PRN Congestion Furosemide 80 mg 05/07/24 09:00 05/07/24 08:01 Furosemide 80 Mg Tab PO 80 mg DAILY WILFREDO Administration Lidocaine/Prilocaine 1 applic 05/06/24 19:52 Lidocaine-Prilocaine 2.5-2.5% Cream 5 Gm Tube TOPICAL MOWEFR PRN AVF access Protocol Metoprolol Succinate 12.5 mg 05/06/24 21:00 05/06/24 21:11 Metoprolol Succinate (Er) 25 Mg Tab.Er.24h PO 12.5 mg HS WILFREDO Administration Morphine Sulfate 4 mg 05/05/24 22:06 05/07/24 06:53 Morphine Sulfate 4 Mg/Ml Syringe IV 4 mg Q4HR PRN Administration Severe Pain (Scale 7 to 10) Multivit/Ca Carb/B Cmplx/FA/Prenat 1 each 05/06/24 21:00 05/06/24 21:10 Folic Acid-Vit B Complex-Vit C 1 Cap PO 1 each HS WILFREDO Administration Naloxone HCl 0.2 mg 05/05/24 22:06 Naloxone 0.4 Mg/Ml 1 Ml Vial IV Q2M PRN Opioid Reversal Ondansetron HCl 4 mg 05/05/24 22:06 05/07/24 08:01 Ondansetron 4 Mg/2 Ml Vial IVP 4 mg Q8HR PRN Administration Nausea And Vomiting Oxycodone/Acetaminophen 1 each 05/06/24 19:52 05/07/24 08:01 Oxycodone-Apap 10-325mg 1 Each Tab PO 1 each TID PRN Administration Pain 1-6 Prednisone 30 mg 05/07/24 09:00 05/07/24 08:01 Prednisone 10 Mg Tab PO 30 mg DAILY WILFREDO Administration Intake and Output 05/06/24 05/07/24 05/07/24 22:59 06:59 14:59 Intake Total 600 200 Balance 600 200 Intake: Oral 600 200 Other: # Voids 1 1 Weight 102.058 kg 05/06/24 06:26 05/06/24 06:26
--- NOTE | 2024-05-07 14:31 | P.PN ---
Subjective Progress Note Date: 05/07/24 78-year-old female seen in the emergency department, room 11. For the last week or so, the patient has been complaining of cough, and shortness of breath. She came into the emergency room to be evaluated. The patient tested positive for RSV. She has an extensive past medical history. She sees Dr. Rizvi, and also follows with cardiology, nephrology, and urology. The patient is not a smoker. Interestingly, she does have a nebulizer machine at home but apparently has never been diagnosed with a lung condition. She uses albuterol in the nebulizer machine at home. The patient has a history of end-stage renal disease, usually requiring hemodialysis on Sunday, diabetes mellitus, hyperlipidemia, hypertension, myocardial infarction, hypothyroidism, obesity, and previous cerebral hemorrhage. The patient has a right upper extremity fistula. The patient is resting comfortably in the emergency department. She is not receiving any IV fluids. She is on room air. Her chest x-ray shows an elevated right diaphragm, and some changes of mild CHF. Her BNP was elevated at 7630. White count 6.9, hemoglobin 10.4, hematocrit 32.8, and platelet count normal. Sodium 133, potassium 5, chloride 92, CO2 33, anion gap 8, BUN 47, creatinine 3.93. Glucose is 202. AST 48. Alkaline phosphatase 254. N- terminal proBNP is 7630. She did test positive for RSV. Chest x-ray has been evaluated. The patient is seen today May 07, 2024 in follow-up on the regular medical floor. She is awake and alert in no acute distress. She is maintaining O2 saturations in the 90s on room air. She denies any worsening shortness of breath, cough or congestion. No new labs today. She is continued on DuoNeb inhalations. Remains on oral diuretics. The plan is for hemodialysis today Objective - Vital Signs Vital signs: Vital Signs Temp 98.3 F 05/07/24 07:55 Pulse 76 05/07/24 12:28 Resp 16 05/07/24 07:55 BP 190/77 05/07/24 07:55 Pulse Ox 96 05/07/24 09:03 FiO2 21 05/07/24 09:03 Intake & Output 05/06/24 05/07/24 05/07/24 18:59 06:59 18:59 Intake Total 600 200 Balance 600 200 Weight 102.058 kg Intake: Oral 600 200 Other: # Voids 1 1 - Exam GENERAL EXAM: Alert, active, 8-year-old female, on room air, comfortable in no apparent distress. HEAD: Normocephalic. EYES: Normal reaction of pupils, equal size. NOSE: Clear with pink turbinates. THROAT: No erythema or exudates. NECK: No masses, no JVD. CHEST: No chest wall deformity. LUNGS: Equal air entry with crackles in the posterior bases. CVS: S1 and S2 normal with no audible murmur, regular rhythm. ABDOMEN: No hepatosplenomegaly, normal bowel sounds, no guarding or rigidity. SPINE: No scoliosis or deformity SKIN: No rashes CENTRAL NERVOUS SYSTEM: No focal deficits, tone is normal in all 4 extremities. EXTREMITIES: There is no peripheral edema. No clubbing, no cyanosis. Peripheral pulses are intact. - Labs CBC & Chem 7: 05/06/24 06:26 05/06/24 06:26 Assessment and Plan Assessment: Acute viral bronchitis, secondary to RSV infection. History of end-stage renal disease, currently on Sunday, Sunday, Sunday hemodialysis. History of hypertension. History of myocardial infarction. History of hyperlipidemia. History of diabetes mellitus. History of hypothyroidism. Prior history of cerebral hemorrhage. Obesity. Plan: The patient was seen and evaluated Currently stable and on room air Plan is for hemodialysis today Stable for discharge from the pulmonary standpoint Recommend a short course of prednisone taper I have personally seen and examined the patient, performed the documentation and the assessment and plan as written. Number of minutes spent on the visit: 10 Dictation was produced using [employer] dictation software. Please excuse any grammatical, word or spelling errors.
[2024-05-07] MEDS: diphenhydrAMINE 25 MG CAP PO STA (16:14)
--- NOTE | 2024-05-07 20:42 | P.HPIM ---
History of Present Illness H&P Date: 05/06/24 Chief Complaint: Shortness of breath/cough 78-year-old female patient with history of hypertension, hyperlipidemia, asthma/COPD, hypothyroidism, ESRD/HD, presents to ED for the last week or so, the patient has been complaining of cough, and shortness of breath. She came into the emergency room to be evaluated. The patient tested positive for RSV. She does have a nebulizer machine at home but apparently has never been diagnosed with a lung condition. She uses albuterol in the nebulizer machine at home. The patient has a history of end-stage renal disease, usually requiring hemodialysis on Sunday, diabetes mellitus, hyperlipidemia, hypertension, myocardial infarction, hypothyroidism, obesity, and previous cerebral hemorrhage. The patient has a right upper extremity fistula. --chest x-ray shows an elevated right diaphragm, and some changes of mild CHF. -BNP was elevated at 7630. White count 6.9, hemoglobin 10.4, hematocrit 32.8, and platelet count normal. Sodium 133, potassium 5, chloride 92, CO2 33, anion gap 8, BUN 47, creatinine 3.93. Glucose is 202. AST 48. Alkaline phosphatase 254. N-terminal proBNP is 7630. She did test positive for RSV. Review of Systems REVIEW OF SYSTEMS: CONSTITUTIONAL: No fever, no malaise, no fatigue. HEENT: No recent visual problems or hearing problems. Denied any sore throat. CARDIOVASCULAR: No chest pain, orthopnea, PND, no palpitations, no syncope. PULMONARY: No shortness of breath, no cough, no hemoptysis. GASTROINTESTINAL: No diarrhea, no nausea, no vomiting, no abdominal pain. NEUROLOGICAL: No headaches, no weakness, no numbness. HEMATOLOGICAL: Denies any bleeding or petechiae. GENITOURINARY: Denies any burning micturition, frequency, or urgency. MUSCULOSKELETAL/RHEUMATOLOGICAL: Denies any joint pain, swelling, or any muscle pain. ENDOCRINE: Denies any polyuria or polydipsia. The rest of the 14-point review of systems is negative. 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 chronic diarrhea, hx "18 polyps", "chronic back pain", anemia, current edema kashif feet Last Myocardial Infarction Date:: unknown History of Any Multi-Drug Resistant Organisms: None Reported, ESBL Date of last positivie culture/infection: 04/30/24 MDRO Source:: urine Past Surgical History: Appendectomy, Bariatric Surgery, Cholecystectomy, Hyster ectomy, Joint Replacement, Tonsillectomy Additional Past Surgical History / Comment(s): gastric bypass, surgery after fall -fx rt leg and foot, kashif knee replacement, kashif cataracts, surgery x 2 or "brain bleed", fistula for dialysis, COLONOSCOPY Past Anesthesia/Blood Transfusion Reactions: No Reported Reaction, Family History of Problems w/ Anesthesia Additional Past Anesthesia/Blood Transfusion Reaction / Comment(s): MOTHER PONV Past Psychological History: No Psychological Hx Reported Smoking Status: Former smoker Past Alcohol Use History: None Reported Past Drug Use History: None Reported - Past Family History Mother Family Medical History: Cancer Father Family Medical History: Diabetes Mellitus, Hypertension Sister(s) Family Medical History: Cancer Medications and Allergies Home Medications Medication Instructions Recorded Confirmed Type Calcium Acetate 1,334 mg PO TID-W/MEALS 12/22/19 05/06/24 History oxyCODONE-APAP 10-325MG [Percocet 1 tab PO TID PRN 02/18/22 05/06/24 History 10-325 mg] Albuterol Inhaler [Ventolin Hfa 2 puff INHALATION RT-QID PRN 06/15/22 05/06/24 History Inhaler] Acetaminophen Tab [Tylenol] 650 mg PO Q4HR PRN tab 01/22/23 05/06/24 Rx Folic Acid/Vit B Complex and C 0.8 mg PO HS 08/27/23 05/06/24 History [Nephro-Karla Tablet] Lidocaine-Prilocaine Cream [Emla 1 applic TOPICAL MOWEFR PRN 08/27/23 05/06/24 History Cream 2.5%/2.5%] Furosemide [Lasix] 80 mg PO DAILY 12/31/23 05/06/24 History Metoprolol Succinate (ER) [Toprol 12.5 mg PO HS #30 tab 01/02/24 05/06/24 Rx XL] Fluticasone Propionate [Flonase 2 spray EA NOSTRIL DAILY PRN 05/06/24 05/06/24 History Allergy Relief] Ipratropium-Albuterol Nebulize 3 ml INHALATION RT-TID PRN 05/06/24 05/06/24 History [Duoneb 0.5 mg-3 mg/3 ml Soln] Sulfamethox-Tmp 800-160Mg [Bactrim 0.5 tab PO BID 05/06/24 05/06/24 History DS 800-160 mg] Vitamin B Complex 1 cap PO HS 05/06/24 05/06/24 History Allergies Allergy/AdvReac Type Severity Reaction Status Date / Time cefuroxime Allergy Rash/Hives Verified 05/06/24 08:30 naproxen [From Naprosyn] Allergy Dyspnea Verified 05/06/24 08:30 blood thinner Allergy "brain Uncoded 05/05/24 16:40 bleed" Physical Exam Vitals: Vital Signs Temp Pulse Resp BP Pulse Ox 05/06/24 07:57 69 16 05/06/24 07:39 78 18 139/61 95 05/06/24 06:09 64 18 129/56 95 05/06/24 05:00 55 L 17 106/51 05/06/24 02:44 70 05/06/24 02:35 74 05/06/24 02:25 58 L 20 138/93 97 05/05/24 23:43 78 18 132/49 100 05/05/24 23:13 95 05/05/24 23:03 73 05/05/24 23:02 81 20 99/60 99 05/05/24 21:21 77 18 124/67 96 05/05/24 16:36 99.2 F 103 H 20 95 Intake and Output 05/05/24 05/06/24 05/06/24 22:59 06:59 14:59 Other: Weight 102.058 kg General appearance: alert, in no apparent distress Head exam: Present: atraumatic, normocephalic, normal inspection Eye exam: Present: normal appearance, PERRL, EOMI. Absent: scleral icterus, conjunctival injection, periorbital swelling ENT exam: Present: normal exam, mucous membranes moist Neck exam: Present: normal inspection. Absent: tenderness, meningismus, lymphadenopathy Respiratory exam: Present: respiratory distress, wheezes. Absent: rales, rhonchi, stridor Cardiovascular Exam: Present: normal rhythm, tachycardia, normal heart sounds. Absent: systolic murmur, diastolic murmur, rubs, gallop, clicks GI/Abdominal exam: Present: soft, normal bowel sounds. Absent: distended, tenderness, guarding, rebound, rigid Extremities exam: Present: normal inspection, full ROM, normal capillary refill. Absent: tenderness, pedal edema, joint swelling, calf tenderness Back exam: Present: normal inspection Neurological exam: Present: alert, oriented X3, CN II-XII intact Psychiatric exam: Present: normal affect, normal mood Skin exam: Present: warm, dry, intact, normal color. Absent: rash Results CBC & Chem 7: 05/06/24 06:26 05/06/24 06: Labs: Abnormal Lab Results - Last 24 Hours (Table) 05/05/24 05/05/24 05/05/24 Range/Units 19:30 19:30 19:30 RBC 3.53 L (3.80-5.40) m/uL Hgb 11.2 L (11.4-16.0) gm/dL Hct (34.0-46.0) % MCV 101.6 H (80.0-100.0) fL Lymphocytes # (1.0-4.8) k/uL PT 9.7 L (10.0-12.5) sec APTT 19.5 L (22.0-30.0) sec Sodium (137-145) mmol/L Chloride 93 L (98-107) mmol/L Carbon Dioxide 36 H (22-30) mmol/L BUN 40 H (7-17) mg/dL Creatinine 2.96 H (0.52-1.04) mg/dL Glucose (74-99) mg/dL AST 53 H (14-36) U/L Alkaline Phosphatase 246 H (38-126) U/L RSV (PCR) (Not Detectd) 05/05/24 05/06/24 05/06/24 Range/Units 19:30 06:26 06:26 RBC 3.19 L (3.80-5.40) m/uL Hgb 10.4 L (11.4-16.0) gm/dL Hct 32.8 L (34.0-46.0) % MCV 102.9 H (80.0-100.0) fL Lymphocytes # 0.4 L (1.0-4.8) k/uL PT (10.0-12.5) sec APTT (22.0-30.0) sec Sodium 133 L (137-145) mmol/L Chloride 92 L (98-107) mmol/L Carbon Dioxide 33 H (22-30) mmol/L BUN 47 H (7-17) mg/dL Creatinine 3.93 H (0.52-1.04) mg/dL Glucose 202 H (74-99) mg/dL AST 48 H (14-36) U/L Alkaline Phosphatase 254 H (38-126) U/L RSV (PCR) Detected A (Not Detectd) Assessment and Plan Assessment: 1. Severe acute bronchitis/RSV infection -Patient has been placed on IV steroid; bronchodilator nebulizer treatments 4 times daily and as needed -O2 per nasal cannula keeping O2 saturation greater than 92% Consult pulmonary 2. Mild hyponatremia; likely fluid overload given history of end-stage renal disease; we will trend electrolytes 3. End-stage renal disease/HD; patient undergoes dialysis every Sunday, Sun and Sunday; nephrology has been consulted; patient remains on Lasix 80 mg daily 4. Hypertension; metoprolol 12.5 mg daily 5. Hyperlipidemia; currently not on any statin therapy 6. Hypothyroidism per history; patient is not on thyroid replacement; will order TSH and free T4 7. CAD/history of [place] DVT prophylaxis; SCDs/subcu heparin CODE STATUS; full code
--- NOTE | 2024-05-07 20:44 | P.PN ---
Subjective Progress Note Date: 05/07/24 78-year-old female patient with history of hypertension, hyperlipidemia, asthma/COPD, hypothyroidism, ESRD/HD, presents to ED for the last week or so, the patient has been complaining of cough, and shortness of breath. She came into the emergency room to be evaluated. The patient tested positive for RSV. She does have a nebulizer machine at home but apparently has never been diagnosed with a lung condition. She uses albuterol in the nebulizer machine at home. The patient has a history of end-stage renal disease, usually requiring hemodialysis on Sunday, diabetes mellitus, hyperlipidemia, hypertension, myocardial infarction, hypothyroidism, obesity, and previous cerebral hemorrhage. The patient has a right upper extremity fistula. --chest x-ray shows an elevated right diaphragm, and some changes of mild CHF. -BNP was elevated at 7630. White count 6.9, hemoglobin 10.4, hematocrit 32.8, and platelet count normal. Sodium 133, potassium 5, chloride 92, CO2 33, anion gap 8, BUN 47, creatinine 3.93. Glucose is 202. AST 48. Alkaline phosphatase 254. N-terminal proBNP is 7630. She did test positive for RSV. Objective - Vital Signs Vital signs: Vital Signs Temp 98.3 F 05/07/24 07:55 Pulse 76 05/07/24 12:28 Resp 16 05/07/24 07:55 BP 190/77 05/07/24 07:55 Pulse Ox 96 05/07/24 09:03 FiO2 21 05/07/24 09:03 Intake & Output 05/06/24 05/07/24 05/07/24 18:59 06:59 18:59 Intake Total 600 200 Balance 600 200 Weight 102.058 kg Intake: Oral 600 200 Other: # Voids 1 1 - Exam Head exam: Present: atraumatic, normocephalic, normal inspection Eye exam: Present: normal appearance, PERRL, EOMI. Absent: scleral icterus, conjunctival injection, periorbital swelling ENT exam: Present: normal exam, mucous membranes moist Neck exam: Present: normal inspection. Absent: tenderness, meningismus, lymphadenopathy Respiratory exam: Present: respiratory distress, wheezes. Absent: rales, rhonchi, stridor Cardiovascular Exam: Present: normal rhythm, tachycardia, normal heart sounds. Absent: systolic murmur, diastolic murmur, rubs, gallop, clicks GI/Abdominal exam: Present: soft, normal bowel sounds. Absent: distended, tenderness, guarding, rebound, rigid Extremities exam: Present: normal inspection, full ROM, normal capillary refill. Absent: tenderness, pedal edema, joint swelling, calf tenderness Back exam: Present: normal inspection Neurological exam: Present: alert, oriented X3, CN II-XII intact Psychiatric exam: Present: normal affect, normal mood Skin exam: Present: warm, dry, intact, normal color. Absent: rash - Labs CBC & Chem 7: 05/06/24 06:26 05/06/24 06:26 Assessment and Plan Assessment: 1. Severe acute bronchitis/RSV infection -Patient has been placed on IV steroid; bronchodilator nebulizer treatments 4 times daily and as needed -O2 per nasal cannula keeping O2 saturation greater than 92% Consult pulmonary 2. Mild hyponatremia; likely fluid overload given history of end-stage renal disease; we will trend electrolytes 3. End-stage renal disease/HD; patient undergoes dialysis every Sunday, Sunday and Sunday; nephrology has been consulted; patient remains on Lasix 80 mg daily 4. Hypertension; metoprolol 12.5 mg daily 5. Hyperlipidemia; currently not on any statin therapy 6. Hypothyroidism per history; patient is not on thyroid replacement; will order TSH and free T4 7. CAD/history of [place] DVT prophylaxis; SCDs/subcu heparin CODE STATUS; full code
[2024-05-08 08:41] LABS: Basophils # (A) 0.03 X 10*3/uL (0.00-0.10); Basophils % (A) 0.3 %; Eosinophils # (A) 0.05 X 10*3/uL (0.04-0.35); Eosinophils % (A) 0.6 %; HCT 29.4 % (37.2-46.3); HGB 9.2 g/dL (12.0-15.0); Lymphocytes # (A) 1.99 X 10*3/uL (0.90-5.00); Lymphocytes % (A) 22.4 %; MCH 32.3 pg (27.0-32.0); MCHC 31.3 g/dL (32.0-37.0); MCV 103.2 FL (80.0-97.0); Mean Platelet Volume 9.8 FL (9.5-12.2); Monocytes # (A) 0.66 X 10*3/uL (0.20-1.00); Monocytes % (A) 7.4 %; NRBC Per 100 WBC 0 X 10*3/uL (0.00-0.01); Neutrophils # (A) 6.04 X 10*3/uL (1.80-7.70); Neutrophils % (A) 68.2 %; Platelet Count 230 X 10*3/uL (140-440); RBC 2.85 X 10*6/uL (4.10-5.20); RDW 14.4 % (11.5-14.5); WBC 8.87 X 10*3/uL (4.50-10.00)
[2024-05-08 09:00] LABS: Blood Urea Nitrogen 42.7 mg/dL (9.0-27.0); Calcium 7.9 mg/dL (8.7-10.3); Carbon Dioxide 28.2 mmol/L (21.6-31.8); Chloride 91 mmol/L (96-109); Chol/HDL Ratio 2.12 Ratio; Glucose 96 mg/dL (70-110); LDL Cholesterol,Calculated 57.9 mg/dL (0.0-131.0); Potassium 4.6 mmol/L (3.5-5.5); Sodium 131 mmol/L (135-145)
--- NOTE | 2024-05-08 10:30 | P.PN ---
Subjective Patient is seen in follow-up for end-stage renal disease. She is maintained on hemodialysis on Sunday schedule. No problems with dialysis yesterday. Denies chest pain or shortness of breath. Currently on room air. Vital signs are stable. General: No acute distress. HEENT: Head exam is unremarkable. LUNGS: No audible rhonchi or wheezes. HEART: Rate and Rhythm are regular. ABDOMEN: Obese, nontender. EXTREMITITES: No edema. Objective - Vital Signs Vital signs: Vital Signs Temp 98.3 F 05/08/24 07:21 Pulse 80 05/08/24 08:02 Resp 16 05/08/24 07:21 BP 131/69 05/08/24 07:21 Pulse Ox 94 L 05/08/24 07:53 FiO2 21 05/08/24 07:53 Intake & Output 05/07/24 05/08/24 05/08/24 18:59 06:59 18:59 Intake Total 1000 Output Total 7400 Balance -6400 Intake: Oral 600 Hemodialysis 400 Output: Hemodialysis 3900 Hemodialysis Net Amount 3500 Other: Voiding Method Toilet Toilet # Voids 2 - Labs CBC & Chem 7: 05/08/24 06:20 05/08/24 06:20 Labs: Abnormal Lab Results - Last 24 Hours (Table) 05/08/24 05/08/24 Range/Units 06:20 06:20 RBC 2.85 L (4.10-5.20) X 10*6/uL Hgb 9.2 L (12.0-15.0) g/dL Hct 29.4 L (37.2-46.3) % MCV 103.2 H (80.0-97.0) FL MCH 32.3 H (27.0-32.0) pg MCHC 31.3 L (32.0-37.0) g/dL Immature Gran # 0.10 H (0.00-0.04) X 10*3/uL Sodium 131 L (135-145) mmol/L Chloride 91 L (96-109) mmol/L BUN 42.7 H (9.0-27.0) mg/dL Creatinine 3.5 H (0.6-1.5) mg/dL Est GFR (CKD-EPI) 13 L (>=60) Calcium 7.9 L (8.7-10.3) mg/dL HDL Cholesterol 63.30 H (40.00-60.00) mg/dL TSH 10.600 H (0.350-5.500) UIU/ML Assessment and Plan Plan: Assessment: 1. End-stage renal disease maintained on hemodialysis on Sunday schedule. 2. Acute bronchitis secondary to RSV infection. 3. Acute on chronic diastolic CHF and mild to moderate aortic stenosis. 4. 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 5. Volume overload. 6. History of cerebral hemorrhage. Plan: Hemodialysis tomorrow. Maintain Lasix.
--- NOTE | 2024-05-08 12:26 | P.PN ---
Subjective HISTORY OF PRESENT ILLNESS: This is a 78-year-old female with a past medical history significant for end- stage renal disease on hemodialysis, hypertension, hyperlipidemia, diabetes, obesity, and mild aortic stenosis. Patient follows in the office with Dr. Salter. We have been asked to see the patient in consultation for congestive heart failure. Patient examined at the bedside. Patient presented to the hospital with a chief complaint of shortness of breath. Patient was found to be positive for RSV. Patient states she is on hemodialysis Sunday and Sunday. She denies missing any treatments of her dialysis. She is maintained on oral diuretics. Vital signs are stable. DIAGNOSTICS: - EKG reveals sinus mechanism with no signs of acute ischemia. - Chest xray cardiomegaly and mild pulmonary vascular congestion - Laboratory data: WBC 6.9. Hemoglobin 10.4. Platelet count 218. Sodium 133. Potassium 5.0. BUN 47. Creatinine 3.93. proBNP 7630. - Current home cardiac medications include metoprolol succinate 12.5 mg at night and Lasix 80 mg daily. - Echocardiogram obtained this admission reveals ejection fraction 50 to 55%, no obvious regional wall motion abnormalities, mild to moderate aortic stenosis -Patient underwent Lexiscan stress test in August 2023 which was negative for stress-induced ischemic changes 05/08/2024 Patient examined this morning at the bedside. Patient states that she does not feel well overall. However she denies chest pain or pressure. Currently denies shortness of breath. Vital signs are stable. PHYSICAL EXAM: VITAL SIGNS: Reviewed. GENERAL: Well-developed in no acute distress. HEENT: Head is normocephalic. Pupils are equal, round. Sclerae anicteric. Mucous membranes of the mouth are moist. Neck supple. No JVD or thyromegaly LUNGS: Respirations even and unlabored. Lungs diminished bilaterally HEART: Regular rate and rhythm. S1 and S2 heard. Systolic murmur noted. ABDOMEN: Soft. Nondistended. Nontender. EXTREMITIES: Normal range of motion. No clubbing or cyanosis. Peripheral pulses intact. No lower extremity edema NEUROLOGIC: Awake and alert. Oriented x 3. ASSESSMENT: Shortness of breath Acute RSV End-stage renal disease on hemodialysis Acute on chronic heart failure with preserved EF Mild to moderate aortic stenosis Hypertension Hyperlipidemia Diabetes Obesity: BMI 39.9 PLAN: 2D echo obtained and reviewed Continue current cardiac medications Continue oral diuretics Continue hemodialysis per nephrology Patient is currently stable from a cardiac standpoint We will sign off. Please reconsult if needed. Nurse practitioner note has been reviewed by physician. Signing provider agrees with the documented findings, assessment, and plan of care documented by SUGAR PRESSER as a scribe. Objective - Vital Signs Vital signs: Vital Signs Temp 98.3 F 05/08/24 07:21 Pulse 80 05/08/24 08:02 Resp 16 05/08/24 07:21 BP 131/69 05/08/24 07:21 Pulse Ox 94 L 05/08/24 07:53 FiO2 21 05/08/24 07:53 Intake & Output 05/07/24 05/08/24 05/08/24 18:59 06:59 18:59 Intake Total 1000 Output Total 7400 Balance -6400 Intake: Oral 600 Hemodialysis 400 Output: Hemodialysis 3900 Hemodialysis Net Amount 3500 Other: Voiding Method Toilet Toilet # Voids 2 - Labs CBC & Chem 7: 05/08/24 06:20 05/08/24 06:20 Labs: Abnormal Lab Results - Last 24 Hours (Table) 05/08/24 05/08/24 Range/Units 06:20 06:20 RBC 2.85 L (4.10-5.20) X 10*6/uL Hgb 9.2 L (12.0-15.0) g/dL Hct 29.4 L (37.2-46.3) % MCV 103.2 H (80.0-97.0) FL MCH 32.3 H (27.0-32.0) pg MCHC 31.3 L (32.0-37.0) g/dL Immature Gran # 0.10 H (0.00-0.04) X 10*3/uL Sodium 131 L (135-145) mmol/L Chloride 91 L (96-109) mmol/L BUN 42.7 H (9.0-27.0) mg/dL Creatinine 3.5 H (0.6-1.5) mg/dL Est GFR (CKD-EPI) 13 L (>=60) Calcium 7.9 L (8.7-10.3) mg/dL HDL Cholesterol 63.30 H (40.00-60.00) mg/dL TSH 10.600 H (0.350-5.500) UIU/ML
[2024-05-08 13:10] LABS: HCT 33.5 % (34.0-46.0); HGB 10.5 gm/dL (11.4-16.0); Hypochromasia Moderate; MCH 32.4 pg (25.0-35.0); MCHC 31.2 g/dL (31.0-37.0); MCV 103.7 fL (80.0-100.0); Macrocytosis Slight; Mean Platelet Volume 7.3; Platelet Count 225 k/uL (150-450); RBC 3.23 m/uL (3.80-5.40); RDW 14.2 % (11.5-15.5); WBC 10.8 k/uL (3.8-10.6)
[2024-05-08] MEDS: PANTOPRAZOLE 40 MG/10 ML VIAL IVP SCH (13:48)
--- NOTE | 2024-05-08 14:09 | P.PN ---
Subjective Progress Note Date: 05/08/24 78-year-old female seen in the emergency department, room 11. For the last week or so, the patient has been complaining of cough, and shortness of breath. She came into the emergency room to be evaluated. The patient tested positive for RSV. She has an extensive past medical history. She sees Dr. Rizvi, and also follows with cardiology, nephrology, and urology. The patient is not a smoker. Interestingly, she does have a nebulizer machine at home but apparently has never been diagnosed with a lung condition. She uses albuterol in the nebulizer machine at home. The patient has a history of end-stage renal disease, usually requiring hemodialysis on Sunday, diabetes mellitus, hyperlipidemia, hypertension, myocardial infarction, hypothyroidism, obesity, and previous cerebral hemorrhage. The patient has a right upper extremity fistula. The patient is resting comfortably in the emergency department. She is not receiving any IV fluids. She is on room air. Her chest x-ray shows an elevated right diaphragm, and some changes of mild CHF. Her BNP was elevated at 7630. White count 6.9, hemoglobin 10.4, hematocrit 32.8, and platelet count normal. Sodium 133, potassium 5, chloride 92, CO2 33, anion gap 8, BUN 47, creatinine 3.93. Glucose is 202. AST 48. Alkaline phosphatase 254. N- terminal proBNP is 7630. She did test positive for RSV. Chest x-ray has been evaluated. The patient is seen today May 07, 2024 in follow-up on the regular medical floor. She is awake and alert in no acute distress. She is maintaining O2 saturations in the 90s on room air. She denies any worsening shortness of breath, cough or congestion. No new labs today. She is continued on DuoNeb inhalations. Remains on oral diuretics. The plan is for hemodialysis today. The patient is seen today May 08, 2024 in follow-up on the regular medical floor. She is sitting up in bed. Awake and alert in no acute distress. Maintaining O2 saturations in the 90s on room air. She is afebrile. Hemodynamically stable. Count 10.8. Hemoglobin 10.5. Platelets 225. She remains on DuoNeb inhalations, prednisone taper. She remains on oral diuretics. Objective - Vital Signs Vital signs: Vital Signs Temp 98.3 F 05/08/24 07:21 Pulse 76 05/08/24 11:23 Resp 16 05/08/24 07:21 BP 131/69 05/08/24 07:21 Pulse Ox 94 L 05/08/24 07:53 FiO2 21 05/08/24 07:53 Intake & Output 05/07/24 05/08/24 05/08/24 18:59 06:59 18:59 Intake Total 1000 Output Total 7400 Balance -6400 Intake: Oral 600 Hemodialysis 400 Output: Hemodialysis 3900 Hemodialysis Net Amount 3500 Other: Voiding Method Toilet Toilet # Voids 2 - Exam GENERAL EXAM: Alert, 78-year-old female, ambulating in her room, on room air, comfortable in no apparent distress. HEAD: Normocephalic. EYES: Normal reaction of pupils, equal size. NOSE: Clear with pink turbinates. THROAT: No erythema or exudates. NECK: No masses, no JVD. CHEST: No chest wall deformity. LUNGS: Equal air entry with crackles in the posterior bases. CVS: S1 and S2 normal with no audible murmur, regular rhythm. ABDOMEN: No hepatosplenomegaly, normal bowel sounds, no guarding or rigidity. SPINE: No scoliosis or deformity SKIN: No rashes CENTRAL NERVOUS SYSTEM: No focal deficits, tone is normal in all 4 extremities. EXTREMITIES: There is no peripheral edema. No clubbing, no cyanosis. Peripheral pulses are intact. - Labs CBC & Chem 7: 05/08/24 12:55 05/08/24 06:20 Labs: Abnormal Lab Results - Last 24 Hours (Table) 05/08/24 05/08/24 05/08/24 Range/Units 06:20 06:20 12:55 WBC 10.8 H (3.8-10.6) k/uL RBC 2.85 L 3.23 L (4.10-5.20) X 10*6/uL Hgb 9.2 L 10.5 L (12.0-15.0) g/dL Hct 29.4 L 33.5 L (37.2-46.3) % MCV 103.2 H 103.7 H (80.0-97.0) FL MCH 32.3 H (27.0-32.0) pg MCHC 31.3 L (32.0-37.0) g/dL Immature Gran # 0.10 H (0.00-0.04) X 10*3/uL Sodium 131 L (135-145) mmol/L Chloride 91 L (96-109) mmol/L BUN 42.7 H (9.0-27.0) mg/dL Creatinine 3.5 H (0.6-1.5) mg/dL Est GFR (CKD-EPI) 13 L (>=60) Calcium 7.9 L (8.7-10.3) mg/dL HDL Cholesterol 63.30 H (40.00-60.00) mg/dL TSH 10.600 H (0.350-5.500) UIU/ML Assessment and Plan Assessment: Acute viral bronchitis, secondary to RSV infection. History of end-stage renal disease, currently on Sunday, Sunday, Sunday hemodialysis. History of hypertension. History of myocardial infarction. History of hyperlipidemia. History of diabetes mellitus. History of hypothyroidism. Prior history of cerebral hemorrhage. Obesity. Plan: The patient was seen and evaluated Currently stable and on room air Stable for discharge from the pulmonary standpoint Recommend a short course of prednisone taper Follow-up closely with her PCP and nephrology I have personally seen and examined the patient, performed the documentation and the assessment and plan as written. Number of minutes spent on the visit: 10 Dictation was produced using [employer] dictation software. Please excuse any grammatical, word or spelling errors.
--- NOTE | 2024-05-08 18:07 | P.PN ---
Subjective Progress Note Date: 05/08/24 78-year-old female patient with history of hypertension, hyperlipidemia, asthma/COPD, hypothyroidism, ESRD/HD, presents to ED for the last week or so, the patient has been complaining of cough, and shortness of breath. She came into the emergency room to be evaluated. The patient tested positive for RSV. She does have a nebulizer machine at home but apparently has never been diagnosed with a lung condition. She uses albuterol in the nebulizer machine at home. The patient has a history of end-stage renal disease, usually requiring hemodialysis on Sunday, diabetes mellitus, hyperlipidemia, hypertension, myocardial infarction, hypothyroidism, obesity, and previous cerebral hemorrhage. The patient has a right upper extremity fistula. --chest x-ray shows an elevated right diaphragm, and some changes of mild CHF. -BNP was elevated at 7630. White count 6.9, hemoglobin 10.4, hematocrit 32.8, and platelet count normal. Sodium 133, potassium 5, chloride 92, CO2 33, anion gap 8, BUN 47, creatinine 3.93. Glucose is 202. AST 48. Alkaline phosphatase 254. N-terminal proBNP is 7630. She did test positive for RSV. 05/08/2024 Patient is seen and evaluated in follow-up on the regular medical floor. She is sitting up in bed. Awake and alert in no acute distress. Maintaining O2 saturations in the 90s on room air. She is afebrile. Hemodynamically stable. Blood work reveals white blood count 8.8. Hemoglobin 9.2. Platelets 230. Blood work review reveals hemoglobin dropping down from 11.2 upon admission down to 9.2; we will order stool occult blood, start patient on IV Protonix; monitor H&H closely She remains on DuoNeb inhalations, prednisone taper. She remains on oral diuretics. -Patient has hemodialysis schedule of Sunday, Sunday and Sunday; for hemodialysis tomorrow morning Objective - Vital Signs Vital signs: Vital Signs Temp 98.3 F 05/08/24 07:21 Pulse 76 05/08/24 11:23 Resp 16 05/08/24 07:21 BP 131/69 05/08/24 07:21 Pulse Ox 94 L 05/08/24 07:53 FiO2 21 05/08/24 07:53 Intake & Output 05/07/24 05/08/24 05/08/24 18:59 06:59 18:59 Intake Total 1000 Output Total 7400 Balance -6400 Intake: Oral 600 Hemodialysis 400 Output: Hemodialysis 3900 Hemodialysis Net Amount 3500 Other: Voiding Method Toilet Toilet # Voids 2 - Exam Head exam: Present: atraumatic, normocephalic, normal inspection Eye exam: Present: normal appearance, PERRL, EOMI. Absent: scleral icterus, conjunctival injection, periorbital swelling ENT exam: Present: normal exam, mucous membranes moist Neck exam: Present: normal inspection. Absent: tenderness, meningismus, lymphadenopathy Respiratory exam: Present: respiratory distress, wheezes. Absent: rales, rhonchi, stridor Cardiovascular Exam: Present: normal rhythm, tachycardia, normal heart sounds. Absent: systolic murmur, diastolic murmur, rubs, gallop, clicks GI/Abdominal exam: Present: soft, normal bowel sounds. Absent: distended, tenderness, guarding, rebound, rigid Extremities exam: Present: normal inspection, full ROM, normal capillary refill. Absent: tenderness, pedal edema, joint swelling, calf tenderness Back exam: Present: normal inspection Neurological exam: Present: alert, oriented X3, CN II-XII intact Psychiatric exam: Present: normal affect, normal mood Skin exam: Present: warm, dry, intact, normal color. Absent: rash - Labs CBC & Chem 7: 05/08/24 12:55 05/08/24 06:20 Labs: Abnormal Lab Results - Last 24 Hours (Table) 05/08/24 05/08/24 Range/Units 06:20 06:20 RBC 2.85 L (4.10-5.20) X 10*6/uL Hgb 9.2 L (12.0-15.0) g/dL Hct 29.4 L (37.2-46.3) % MCV 103.2 H (80.0-97.0) FL MCH 32.3 H (27.0-32.0) pg MCHC 31.3 L (32.0-37.0) g/dL Immature Gran # 0.10 H (0.00-0.04) X 10*3/uL Sodium 131 L (135-145) mmol/L Chloride 91 L (96-109) mmol/L BUN 42.7 H (9.0-27.0) mg/dL Creatinine 3.5 H (0.6-1.5) mg/dL Est GFR (CKD-EPI) 13 L (>=60) Calcium 7.9 L (8.7-10.3) mg/dL HDL Cholesterol 63.30 H (40.00-60.00) mg/dL TSH 10.600 H (0.350-5.500) UIU/ML Assessment and Plan Assessment: 1. Severe acute bronchitis/RSV infection -Patient has been placed on IV steroid; bronchodilator nebulizer treatments 4 times daily and as needed -O2 per nasal cannula keeping O2 saturation greater than 92% Consult pulmonary 2. Mild hyponatremia; likely fluid overload given history of end-stage renal disease; we will trend electrolytes 3. End-stage renal disease/HD; patient undergoes dialysis every Sunday, Sunday and Sunday; nephrology has been consulted; patient remains on Lasix 80 mg daily 4. Hypertension; metoprolol 12.5 mg daily 5. Hyperlipidemia; currently not on any statin therapy 6. Hypothyroidism per history; patient is not on thyroid replacement; will order TSH and free T4 7. CAD/history of [place] DVT prophylaxis; SCDs/subcu heparin CODE STATUS; full code
[2024-05-09] MEDS: ONDANSETRON 4 MG/2 ML VIAL IVP PRN (08:12)
--- NOTE | 2024-05-09 10:21 | P.PN ---
Subjective Patient is seen in follow-up for end-stage renal disease. She is maintained on hemodialysis on Sunday schedule. Tolerating dialysis well. Denies chest pain or shortness of breath. Currently on room air. Denies any active bleeding. Hemoglobin better today. Vital signs are stable. General: No acute distress. HEENT: Head exam is unremarkable. LUNGS: No audible rhonchi or wheezes. HEART: Rate and Rhythm are regular. ABDOMEN: Obese, nontender. EXTREMITITES: No edema. Objective - Vital Signs Vital signs: Vital Signs Temp 98.4 F 05/09/24 07:44 Pulse 72 05/09/24 08:35 Resp 16 05/09/24 07:44 BP 134/79 05/09/24 07:44 Pulse Ox 98 05/09/24 08:15 FiO2 21 05/09/24 08:15 Intake & Output 05/08/24 05/09/24 05/09/24 18:59 06:59 18:59 Other: Voiding Method Toilet Toilet # Voids 3 1 - Labs CBC & Chem 7: 05/08/24 12:55 05/08/24 06:20 Labs: Abnormal Lab Results - Last 24 Hours (Table) 05/08/24 Range/Units 12:55 WBC 10.8 H (3.8-10.6) k/uL RBC 3.23 L (3.80-5.40) m/uL Hgb 10.5 L (11.4-16.0) gm/dL Hct 33.5 L (34.0-46.0) % MCV 103.7 H (80.0-100.0) fL Microbiology - Last 24 Hours (Table) 05/07/24 21:22 Urine Culture - Preliminary Urine,Clean Catch Gram Neg Bacilli Assessment and Plan Plan: Assessment: 1. End-stage renal disease maintained on hemodialysis on Sunday schedule. 2. Acute bronchitis secondary to RSV infection. 3. Acute on chronic diastolic CHF and mild to moderate aortic stenosis. 4. 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 5. Volume overload. 6. History of cerebral hemorrhage. 7. Anemia of chronic kidney disease. Hemoglobin at goal today. Plan: Currently seen while undergoing hemodialysis. Next treatment Sunday. Maintain Lasix.
[2024-05-09 10:41] LABS: Basophils # (A) 0.02 X 10*3/uL (0.00-0.10); Basophils % (A) 0.2 %; Eosinophils # (A) 0.09 X 10*3/uL (0.04-0.35); HCT 27.9 % (37.2-46.3); HGB 9.1 g/dL (12.0-15.0); Lymphocytes # (A) 1.97 X 10*3/uL (0.90-5.00); MCH 33.7 pg (27.0-32.0); MCHC 32.6 g/dL (32.0-37.0); MCV 103.3 FL (80.0-97.0); Mean Platelet Volume 9.4 FL (9.5-12.2); Monocytes # (A) 0.82 X 10*3/uL (0.20-1.00); Monocytes % (A) 8.7 %; NRBC Per 100 WBC 0 X 10*3/uL (0.00-0.01); Neutrophils # (A) 6.41 X 10*3/uL (1.80-7.70); Neutrophils % (A) 68.1 %; Platelet Count 221 X 10*3/uL (140-440); RDW 14.6 % (11.5-14.5)
[2024-05-09 10:42] LABS: BUN/Creat Ratio 14.05 Ratio (12.00-20.00); Calcium 7.8 mg/dL (8.7-10.3); Carbon Dioxide 24.8 mmol/L (21.6-31.8); Chloride 89 mmol/L (96-109); Glucose 87 mg/dL (70-110); Potassium 4.6 mmol/L (3.5-5.5); Sodium 127 mmol/L (135-145)
--- NOTE | 2024-05-09 12:28 | P.PN ---
Subjective Progress Note Date: 05/09/24 Principal diagnosis: Cough and shortness of breath. 78-year-old female seen in the emergency department, room 11. For the last week or so, the patient has been complaining of cough, and shortness of breath. She came into the emergency room to be evaluated. The patient tested positive for RSV. She has an extensive past medical history. She sees Dr. Rizvi, and also follows with cardiology, nephrology, and urology. The patient is not a smoker. Interestingly, she does have a nebulizer machine at home but apparently has never been diagnosed with a lung condition. She uses albuterol in the nebulizer machine at home. The patient has a history of end-stage renal disease, usually requiring hemodialysis on Sunday, diabetes mellitus, hyperlipidemia, hypertension, myocardial infarction, hypothyroidism, obesity, and previous cerebral hemorrhage. The patient has a right upper extremity fistula. The patient is resting comfortably in the emergency department. She is not receiving any IV fluids. She is on room air. Her chest x-ray shows an elevated right diaphragm, and some changes of mild CHF. Her BNP was elevated at 7630. White count 6.9, hemoglobin 10.4, hematocrit 32.8, and platelet count normal. Sodium 133, potassium 5, chloride 92, CO2 33, anion gap 8, BUN 47, creatinine 3.93. Glucose is 202. AST 48. Alkaline phosphatase 254. N- terminal proBNP is 7630. She did test positive for RSV. Chest x-ray has been evaluated. The patient is seen today May 07, 2024 in follow-up on the regular medical floor. She is awake and alert in no acute distress. She is maintaining O2 saturations in the 90s on room air. She denies any worsening shortness of breath, cough or congestion. No new labs today. She is continued on DuoNeb inhalations. Remains on oral diuretics. The plan is for hemodialysis today. The patient is seen today May 08, 2024 in follow-up on the regular medical floor. She is sitting up in bed. Awake and alert in no acute distress. Maintaining O2 saturations in the 90s on room air. She is afebrile. Hemo dynamically stable. Count 10.8. Hemoglobin 10.5. Platelets 225. She remains on DuoNeb inhalations, prednisone taper. She remains on oral diuretics. Progress note dated May 09, 2024. 78-year-old female seen today in room 465. She currently is on room air. She is not receiving any IV fluids. The patient is having hemodialysis today. The goal of hemodialysis is to remove 3.5 L of fluid. Clinically, the patient is very stable. She was admitted with a diagnosis of RSV induced bronchitis. She came in with shortness of breath and cough, both of which are much improved. Labs today include a white count 9.4, hemoglobin 9.1, hematocrit 27.9, and a normal platelet count. Sodium 127, potassium 4.6, chloride 79, CO2 25, anion gap 13, BUN 59, creatinine 4.2. Calcium is 7.8. Urine was positive for gram- negative bacilli. The patient is currently on ciprofloxacin, 500 mg daily. Objective - Vital Signs Vital signs: Vital Signs Temp 98.4 F 05/09/24 07:44 Pulse 80 05/09/24 11:37 Resp 16 05/09/24 07:44 BP 134/79 05/09/24 07:44 Pulse Ox 98 05/09/24 08:15 FiO2 21 05/09/24 08:15 Intake & Output 05/08/24 05/09/24 05/09/24 18:59 06:59 18:59 Other: Voiding Method Toilet Toilet Bedside Commode # Voids 3 1 - Exam No acute distress, oriented 3. Currently on room air. HEENT examination is grossly unremarkable. Mucous membranes are moist. No oral lesions. Neck supple. Full range of motion. No adenopathy thyromegaly or neck vein distention. Cardiovascular examination reveals regular rhythm rate. S1-S2 normal. No S3 or S4. No discernible murmur noted. Lungs reveal moderate bilateral rhonchi. No wheezes or crackles. Breath sounds are equal bilaterally. Saturations are excellent. Abdomen soft bowel sounds are heard. No masses or tenderness. Extremities are intact. No cyanosis clubbing or edema. Skin is without rash or lesion. Neurologic examination is brief but nonfocal. - Labs CBC & Chem 7: 05/09/24 06:26 05/09/24 06:26 Labs: Abnormal Lab Results - Last 24 Hours (Table) 05/08/24 05/09/24 05/09/24 Range/Units 12:55 06: 06:26 WBC 10.8 H (3.8-10.6) k/uL RBC 3.23 L 2.70 L (3.80-5.40) m/uL Hgb 10.5 L 9.1 L (11.4-16.0) gm/dL Hct 33.5 L 27.9 L (34.0-46.0) % MCV 103.7 H 103.3 H (80.0-100.0) fL MCH 33.7 H (27.0-32.0) pg RDW 14.6 H (11.5-14.5) % MPV 9.4 L (9.5-12.2) FL Immature Gran # 0.09 H (0.00-0.04) X 10*3/uL Sodium 127 L (135-145) mmol/L Chloride 89 L (96-109) mmol/L Anion Gap 13.20 H (4.00-12.00) mmol/L BUN 59.0 H (9.0-27.0) mg/dL Creatinine 4.2 H (0.6-1.5) mg/dL Est GFR (CKD-EPI) 10 L (>=60) Calcium 7.8 L (8.7-10.3) mg/dL Microbiology - Last 24 Hours (Table) 05/07/24 21:22 Urine Culture - Preliminary Urine,Clean Catch Gram Neg Bacilli Assessment and Plan Assessment: Acute viral bronchitis, secondary to RSV infection. History of end-stage renal disease, currently on Sunday, Sunday, Sunday hemodialysis. History of hypertension. History of myocardial infarction. History of hyperlipidemia. History of diabetes mellitus. History of hypothyroidism. Prior history of cerebral hemorrhage. Obesity. Plan: Plan dated May 06, 2024. The patient is seen today in the emergency department, room 11. Not sure why this patient is being admitted. She has a nebulizer machine with albuterol at home. She could certainly use that. She could be discharged with some corticosteroid, to be taken at home. She is currently on room air, and no respiratory distress. She is not receiving any IV fluids. Labs, x-rays, and medications are all reviewed. Prognosis is thought to be generally good. She has no prior history of any lung disease. Not quite sure why she has a nebulizer machine at home, as it was given to her when she was seeing doctors in [place]. Dictation was produced using [employer] software. Please excuse any grammatical, word or spelling errors. Plan dated May 09, 2024. The patient is currently undergoing hemodialysis. The goal with hemodialysis today is to remove 3.5 L of fluid. Clinically, the patient is very stable. She initially came into the emergency department complaining of shortness of breath, and cough, and tested positive for RSV. Labs, x-rays, medications are reviewed. The patient is stable for discharge from our perspective. She is not having any additional respiratory issues. Dictation was produced using [employer] software. Please excuse any grammatical, word or spelling errors. Time with Patient: Less than 30
[2024-05-09] MEDS: CIPROFLOXACIN HCL 500 MG TAB PO SCH (13:35)
[2024-05-09] MEDS: ACETAMINOPHEN TAB 325 MG TAB PO PRN (13:55)
[2024-05-09 14:21] VITALS: BP 126/84; PULSE 69; RESP 19; TEMP 97.8
== END 2024-05-09 14:05 | disposition home or self-care (01) ==
LOC: EC 16:01 → 4SSUR 22:07
PROVIDERS: ADMIT Hospitalist; ATTEND Hospitalist
DX: J20.5 Acute bronchitis due to respiratory syncytial virus (principal); J44.0 Chronic obstructive pulmonary disease with (acute) lower respiratory infection; E87.1 Hypo-osmolality and hyponatremia; E11.22 Type 2 diabetes mellitus with diabetic chronic kidney disease; I13.2 Hypertensive heart and chronic kidney disease with heart failure and with stage 5 chronic kidney disease, or end stage renal disease; N18.6 End stage renal disease; I50.33 Acute on chronic diastolic (congestive) heart failure; D63.1 Anemia in chronic kidney disease; M89.8X9 Other specified disorders of bone, unspecified site; N25.0 Renal osteodystrophy; I25.10 Atherosclerotic heart disease of native coronary artery without angina pectoris; I25.2 Old myocardial infarction; I35.0 Nonrheumatic aortic (valve) stenosis; E03.9 Hypothyroidism, unspecified; E66.9 Obesity, unspecified; E78.5 Hyperlipidemia, unspecified; Z68.39 Body mass index [BMI] 39.0-39.9, adult; Z79.899 Other long term (current) drug therapy; Z85.42 Personal history of malignant neoplasm of other parts of uterus; Z86.73 Personal history of transient ischemic attack (TIA), and cerebral infarction without residual deficits; Z87.891 Personal history of nicotine dependence; Z90.710 Acquired absence of both cervix and uterus; Z96.653 Presence of artificial knee joint, bilateral; Z98.84 Bariatric surgery status; Z99.2 Dependence on renal dialysis
CPT/HCPCS: G0257 ×70; 36415; 71046; 80048; 80053; 80061; 83605; 83735; 83880; 84100; 84439; 84443; 85025; 85027; 85610; 85730; 87077; 87086; 87186; 87636; 90935; 93005; 93306; 94640; 94760; 96374; 96375; 96376; 99285

== ENCOUNTER 2024-06-12 06:15 | Day surgery (SDC) | payer MEDICARE, BC, OTHER ==
--- NOTE | 2024-06-11 21:02 | P.GSHP ---
History of Present Illness H&P Date: 06/11/24 Chief Complaint: Bladder tumor The patient is a 78-year-old white female with end-stage renal disease. She has been on hemodialysis for approximately 7 years. 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 She has been treated for recurrent UTIs. Urine cytology shows rare malignant cells with squamous differentiation, suspicious for gynecologic malignancy. Cystoscopy reveals a large mass arising from the posterior bladder wall. She now comes for resection. 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 lower arm Last Myocardial Infarction Date:: unknown History of Any Multi-Drug Resistant Organisms: ESBL Date of last positivie culture/infection: 05/07/24 MDRO Source:: urine Past Surgical History: Appendectomy, Bariatric Surgery, Cholecystectomy, Hysterectomy, Joint Replacement, Tonsillectomy Additional Past Surgical History / Comment(s): gastric bypass, surgery after fall -fx rt leg and foot, kashif knee replacement, kashif cataracts, surgery x 2 or "brain bleed", fistula for dialysis, colonoscopy Past Anesthesia/Blood Transfusion Reactions: No Reported Reaction, Family History of Problems w/ Anesthesia Additional Past Anesthesia/Blood Transfusion Reaction / Comment(s): MOTHER PONV Smoking Status: Former smoker - Past Family History Mother Family Medical History: Cancer Father Family Medical History: Diabetes Mellitus, Hypertension Sister(s) Family Medical History: Cancer Medications and Allergies Home Medications Medication Instructions Recorded Confirmed Type Calcium Acetate 1,334 mg PO TID-W/MEALS 12/22/19 06/06/24 History oxyCODONE-APAP 10-325MG [Percocet 1 tab PO TID PRN 02/18/22 06/06/24 History 10-325 mg] Albuterol Inhaler [Ventolin Hfa 2 puff INHALATION RT-QID PRN 06/15/22 06/06/24 History Inhaler] Acetaminophen Tab [Tylenol] 650 mg PO Q4HR PRN tab 01/22/23 06/06/24 Rx Folic Acid/Vit B Complex and C 0.8 mg PO HS 08/27/23 06/06/24 History [Nephro-Karla Tablet] Lidocaine-Prilocaine Cream [Emla 1 applic TOPICAL MOWEFR PRN 08/27/23 06/06/24 History Cream 2.5%/2.5%] Furosemide [Lasix] 80 mg PO DAILY 12/31/23 06/06/24 History Ipratropium-Albuterol Nebulize 3 ml INHALATION RT-TID PRN 05/06/24 06/06/24 History [Duoneb 0.5 mg-3 mg/3 ml Soln] Vitamin B Complex 1 cap PO HS 05/06/24 06/06/24 History Metoprolol Succinate (ER) [Toprol 12.5 mg PO HS PRN 06/06/24 06/06/24 History XL] Allergies Allergy/AdvReac Type Severity Reaction Status Date / Time cefuroxime Allergy Rash/Hives Verified 06/06/24 15:05 naproxen [From Naprosyn] Allergy Dyspnea Verified 06/06/24 15:05 blood thinner Allergy "brain Uncoded 05/05/24 16:40 bleed" Surgical - Exam - General well developed, well nourished, no distress - Respiratory normal respiratory effort - Abdomen Abdomen: soft, non tender, no guarding, no rigid, no rebound - Genitourinary The antritis is small. Thickening at the vaginal cuff is noted, and this is friable and prone to bleeding. - Psychiatric oriented to time, oriented to person, oriented to place, speech is normal, memory intact Assessment and Plan (1) Neoplasm of unspecified behavior of bladder Status: Acute Code(s): D49.4 - NEOPLASM OF UNSPECIFIED BEHAVIOR OF BLADDER SNOMED Code(s): 778668401 Plan: Cystoscopy, transurethral resection of bladder tumor. The tumor is presumed to be of gynecologic origin, and it is thus anticipated that partial resection will be performed for the purposes of obtaining a tissue diagnosis. The procedure has been reviewed with the patient, along with risks which include anesthesia, bleeding, infection, and bladder perforation.
[2024-06-12] MEDS ORDERED: HYDROmorphone 0.5 MG/0.5 ML SYRINGE IVP PRN (07:00)
[2024-06-12] MEDS: SODIUM CHLORIDE 0.9% 1,000 ML IV ONE (07:02)
[2024-06-12] MEDS: IV FLUID CONTINUATION 1,000 ML IV ONE (07:02)
[2024-06-12 07:09] LABS: Glucose,Whole Blood 104 mg/dL (70-110)
[2024-06-12 07:14] LABS: Basophils # (A) 0.02 10*3/uL (0.00-0.10); Basophils % (A) 0.3 %; Eosinophils % (A) 1.3 %; HCT 35.7 % (37.2-46.3); HGB 11.5 g/dL (12.0-15.0); Lymphocytes # (A) 1.13 10*3/uL (0.90-5.00); Lymphocytes % (A) 14.4 %; MCH 33.3 pg (27.0-32.0); MCHC 32.2 g/dL (32.0-37.0); MCV 103.5 fL (80.0-97.0); Mean Platelet Volume 9.4 fL (9.5-12.2); Monocytes # (A) 0.66 10*3/uL (0.20-1.00); Monocytes % (A) 8.4 %; Neutrophils # (A) 5.89 10*3/uL (1.80-7.70); Neutrophils % (A) 75.1 %; Platelet Count 222 10*3/uL (140-440); RBC 3.45 10*6/uL (4.10-5.20); RDW 14.9 % (11.5-14.5); WBC 7.84 10*3/uL (4.50-10.00)
[2024-06-12] MEDS: DEXAMETHASONE SOD PHOSPHATE 4 MG/ML 1 ML VIAL IV ONE (07:14)
[2024-06-12] MEDS: ONDANSETRON 4 MG/2 ML VIAL IVP ONE (07:14)
[2024-06-12 07:33] LABS: ALT 13 U/L (4-34); AST 27 U/L (14-36); African American GFR (CKD) 14 (>60 ml/min/1.73 sqM); Albumin 3.3 g/dL (3.5-5.0); Alkaline Phosphatase 186 U/L (38-126); Anion Gap 9 mmol/L; Blood Urea Nitrogen 32 mg/dL (7-17); Calcium 8.8 mg/dL (8.4-10.2); Carbon Dioxide 33 mmol/L (22-30); Chloride 95 mmol/L (98-107); Glucose 105 mg/dL (74-99); Non-African American GFR(CKD) 12 (>60 ml/min/1.73 sqM); Potassium 3.8 mmol/L (3.5-5.1); Sodium 137 mmol/L (137-145); Total Bilirubin 0.9 mg/dL (0.2-1.3); Total Protein 6.2 g/dL (6.3-8.2)
[2024-06-12] MEDS ORDERED: fentaNYL (PF) 50 MCG/ML 2 ML AMP ONE (07:35)
[2024-06-12] MEDS ORDERED: MIDAZOLAM 2 MG/2 ML VIAL ONE (07:35)
[2024-06-12] MEDS ORDERED: PROPOFOL 10 MG/ML 20 ML VIAL IV ONE (07:35)
[2024-06-12] MEDS ORDERED: PHENYLEPHRINE 10 MG/ML VIAL ONE (07:35)
[2024-06-12] MEDS: ceFAZolin 2 GM in DEXTROSE 5% IN WATER 50 ML IVPB PRN (07:45)
[2024-06-12] MEDS: LACTATED RINGERS 1,000 ML IV ONE (08:31)
--- NOTE | 2024-06-12 08:49 | P.OP ---
Date of Procedure: 06/12/24 Preoperative Diagnosis: Bladder tumor Postoperative Diagnosis: Same Procedure(s) Performed: Cystoscopy, TURBT (medium) Anesthesia: RODNEYA Surgeon: Yaw Joshua Estimated Blood Loss (ml): 10 IV fluids (ml): 100 Pathology: other (Bladder tumor fragments) Condition: stable Disposition: PACU Indications for Procedure: The patient is a 78-year-old white female with end-stage renal disease. She has been on hemodialysis for approximately 7 years. 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 She has been treated for recurrent UTIs. Urine cytology shows rare malignant cells with squamous differentiation, suspicious for gynecologic malignancy. Cystoscopy reveals a large mass arising from the posterior bladder wall. She now comes for resection. Operative Findings: Very large bladder mass arising from the posterior bladder wall, partially resected. The mass is solid in consistency. Description of Procedure: The patient was taken in the operating room and placed in the dorsal lithotomy position, with her legs supported in Robert stirrups. The external genitalia was prepped and draped sterilely. The 25-[place] ACMI resectoscope sheath was introduced into the bladder. The bladder was inspected. The ureteral orifices were not identified. The entire bladder was examined, revealing a large mass arising from the posterior bladder wall, whitish-pink in color suggesting squamous differentiation.. Using the cutting loop, the tumor was partially resected to obtain adequate tissue for a definitive diagnosis. Bleeders were controlled with electrocautery. Excellent hemostasis was attained. The resected tissue was saved and sent for pathologic examination. The bladder was emptied and the resectoscope removed. The patient tolerated the procedure well and was taken to the recovery room in stable condition.
[2024-06-12] MEDS: ACETAMINOPHEN TAB 325 MG TAB PO STA (14:17)
[2024-06-12] MEDS ORDERED: ACETAMINOPHEN TAB 325 MG TAB PO PRN (14:50)
[2024-06-12] MEDS: MORPHINE SULFATE 2 MG/ML SYRINGE IVP STA (14:58)
[2024-06-12] MEDS: LACTATED RINGERS 1,000 ML IV SCH (17:34)
[2024-06-12] MEDS: DEXTROSE 5%-0.45% NACL 1,000 ML IV SCH (17:34)
[2024-06-12] MEDS: MORPHINE SULFATE 2 MG/ML SYRINGE IV PRN (17:43)
--- NOTE | 2024-06-13 07:29 | P.DS ---
Providers Attending physician: Yaw Joshua Primary care physician: [facility] Course: The patient underwent a TURBT by Dr. Joshua yesterday. She did well overnight. She is voiding without problems. She is ready for discharge home. Will attempt to get her dialysis today before discharge if not she will have to make arrangements as an outpatient. She will follow-up with Dr. Joshua next week. Condition is good. Patient Condition at Discharge: Good Plan - Discharge Summary Discharge Rx Participant: Yes New Discharge Prescriptions: New Sulfamethox-Tmp 800-160Mg [Bactrim DS 800-160 mg] 1 tab PO Q12HR #14 tab oxyCODONE-APAP 10-325MG [Percocet 10-325 mg] 1 tab PO Q6HR PRN 3 Days #10 tab PRN Reason: Moderate To Severe Pain (4-10) No Action Calcium Acetate 1,334 mg PO TID-W/MEALS oxyCODONE-APAP 10-325MG [Percocet 10-325 mg] 1 tab PO TID PRN PRN Reason: Pain Albuterol Inhaler [Ventolin Hfa Inhaler] 2 puff INHALATION RT-QID PRN PRN Reason: Shortness Of Breath Folic Acid/Vit B Complex and C [Nephro-Karla Tablet] 0.8 mg PO HS Lidocaine-Prilocaine Cream [Emla Cream 2.5%/2.5%] 1 applic TOPICAL MOWEFR PRN PRN Reason: AVF access Furosemide [Lasix] 80 mg PO DAILY Acetaminophen Tab [Tylenol] 650 mg PO Q4HR PRN tab PRN Reason: Fever>101 Vitamin B Complex 1 cap PO HS Ipratropium-Albuterol Nebulize [Duoneb 0.5 mg-3 mg/3 ml Soln] 3 ml INHALATION RT-TID PRN PRN Reason: Shortness Of Breath Metoprolol Succinate (ER) [Toprol XL] 12.5 mg PO HS PRN PRN Reason: SBP>130 Discharge Medication List Calcium Acetate 1,334 mg PO TID-W/MEALS 12/22/19 [History] oxyCODONE-APAP 10-325MG [Percocet 10-325 mg] 1 tab PO TID PRN 02/18/22 [History] Albuterol Inhaler [Ventolin Hfa Inhaler] 2 puff INHALATION RT-QID PRN 06/15/22 [History] Acetaminophen Tab [Tylenol] 650 mg PO Q4HR PRN tab 01/22/23 [Rx] Folic Acid/Vit B Complex and C [Nephro-Karla Tablet] 0.8 mg PO HS 08/27/23 [History] Lidocaine-Prilocaine Cream [Emla Cream 2.5%/2.5%] 1 applic TOPICAL MOWEFR PRN 08/27/23 [History] Furosemide [Lasix] 80 mg PO DAILY 12/31/23 [History] Ipratropium-Albuterol Nebulize [Duoneb 0.5 mg-3 mg/3 ml Soln] 3 ml INHALATION RT-TID PRN 05/06/24 [History] Vitamin B Complex 1 cap PO HS 05/06/24 [History] Metoprolol Succinate (ER) [Toprol XL] 12.5 mg PO HS PRN 06/06/24 [History] Sulfamethox-Tmp 800-160Mg [Bactrim DS 800-160 mg] 1 tab PO Q12HR #14 tab 06/12/24 [Rx] oxyCODONE-APAP 10-325MG [Percocet 10-325 mg] 1 tab PO Q6HR PRN 3 Days #10 tab 06/12/24 [Rx] Follow up Appointment(s)/Referral(s): Yaw Joshua MD [STAFF PHYSICIAN] - 06/17/24 ( follow up with Dr Joshua on June 17 at 8:20) Patient Instructions/Handouts: *Surgery [facility] - Cystoscopy Discharge Instructions, *Surgery [facility] - (Anesthesia) Discharge Instructions Outpatient Surgery, Transurethral Resection of Bladder Tumors (DC) Activity/Diet/Wound Care/Special Instructions: Discharge home per anesthesia. Diet and activity as tolerated. Has an appointment w [facility] kidney care June 14 at 7:25 Arrive at 7:05. Please cancel appointment if dialysis done in the hospital. [phone] Auto Top Mechanic/friends number-Yvonne [phone] Discharge Disposition: HOME SELF-CARE
--- NOTE | 2024-06-13 09:35 | P.NPCON ---
History of Present Illness - Reason for Consult end stage renal disease - History of Present Illness Patient is a 78-year-old female with end-stage renal disease on hemodialysis on Sunday schedule. Patient was admitted to the hospital for cystoscopy and resection of bladder mass. This was performed yesterday on 06/12/2024. Patient is scheduled for hemodialysis today. Complaining of discomfort while urinating. Mild abdominal discomfort. No acute distress Hemodynamically stable. Past Medical History Past Medical History: Asthma, Cancer, COPD, Dialysis, Hyperlipidemia, Hypertension, Myocardial Infarction ([place]), Osteoarthritis ([place]), Pneumonia, Renal Disease, Thyroid Disorder Additional Past Medical History / Comment(s): Hx Uterine cancer 25 yrs ago, ESRD w/ hemodialysis Sun, Sun and Sun, varicose veins., "mild heart attack"" "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 lower arm Last Myocardial Infarction Date:: unknown History of Any Multi-Drug Resistant Organisms: ESBL Date of last positivie culture/infection: 05/07/24 MDRO Source:: urine Past Surgical History: Appendectomy, Bariatric Surgery, Cholecystectomy, Hysterectomy, Joint Replacement, Tonsillectomy Additional Past Surgical History / Comment(s): gastric bypass, surgery after fall -fx rt leg and foot, kashif knee replacement, kashif cataracts, surgery x 2 or "brain bleed", fistula for dialysis, colonoscopy Past Anesthesia/Blood Transfusion Reactions: No Reported Reaction, Family History of Problems w/ Anesthesia Additional Past Anesthesia/Blood Transfusion Reaction / Comment(s): MOTHER PONV Smoking Status: Former smoker - Past Family History Mother Family Medical History: Cancer Father Family Medical History: Diabetes Mellitus, Hypertension Sister(s) Family Medical History: Cancer Medications and Allergies Home Medications Medication Instructions Recorded Confirmed Type Calcium Acetate 1,334 mg PO TID-W/MEALS 12/22/19 06/06/24 History oxyCODONE-APAP 10-325MG [Percocet 1 tab PO TID PRN 02/18/22 06/12/24 History 10-325 mg] Albuterol Inhaler [Ventolin Hfa 2 puff INHALATION RT-QID PRN 06/15/22 06/12/24 History Inhaler] Acetaminophen Tab [Tylenol] 650 mg PO Q4HR PRN tab 01/22/23 06/06/24 Rx Folic Acid/Vit B Complex and C 0.8 mg PO HS 08/27/23 06/06/24 History [Nephro-Karla Tablet] Lidocaine-Prilocaine Cream [Emla 1 applic TOPICAL MOWEFR PRN 08/27/23 06/06/24 History Cream 2.5%/2.5%] Furosemide [Lasix] 80 mg PO DAILY 12/31/23 06/06/24 History Ipratropium-Albuterol Nebulize 3 ml INHALATION RT-TID PRN 05/06/24 06/12/24 History [Duoneb 0.5 mg-3 mg/3 ml Soln] Vitamin B Complex 1 cap PO HS 05/06/24 06/06/24 History Metoprolol Succinate (ER) [Toprol 12.5 mg PO HS PRN 06/06/24 06/12/24 History XL] Sulfamethox-Tmp 800-160Mg [Bactrim 1 tab PO Q12HR #14 tab 06/12/24 Rx DS 800-160 mg] oxyCODONE-APAP 10-325MG [Percocet 1 tab PO Q6HR PRN 3 Days #10 tab 06/12/24 Rx 10-325 mg] Allergies Allergy/AdvReac Type Severity Reaction Status Date / Time cefuroxime Allergy Rash/Hives Verified 06/12/24 06:42 naproxen [From Naprosyn] Allergy Dyspnea Verified 06/12/24 06:42 blood thinner Allergy "brain Uncoded 06/12/24 06:42 bleed" Physical Exam Vitals: Vital Signs Temp Pulse Pulse Resp BP Pulse Ox 06/13/24 07:10 98.1 F 68 19 157/68 99 06/13/24 01:31 98.4 F 69 16 122/65 97 06/12/24 19:58 98.1 F 86 18 110/44 96 06/12/24 16:37 97.6 F 63 18 145/59 97 06/12/24 14:50 72 16 128/68 98 06/12/24 14:33 68 18 135/53 99 06/12/24 13:15 78 18 134/66 97 06/12/24 12:15 84 18 135/66 96 06/12/24 11:11 84 18 167/72 99 06/12/24 10:44 82 16 158/78 96 06/12/24 10:14 80 20 173/82 96 06/12/24 10:00 78 16 164/77 95 06/12/24 09:45 79 16 174/82 98 Intake and Output 06/12/24 06/13/24 06/13/24 22:59 06:59 14:59 Intake Total 120 Balance 120 Intake: Oral 120 Other: Voiding Method Diaper Weight 91.6 kg Patient is awake, comfortable, no acute distress Examination of the heart S1 and S2 Examination of the lungs bilateral breath sounds are heard Abdomen is soft nontender Examination of lower extremity shows no significant edema Right forearm AV fistula intact BUSINESS SERVICES COORDINATOR exam grossly intact Results - Lab Results Most recent lab results Calcium 8.8 mg/dL (8.4-10.2) 06/12/24 06:30 06/12/24 06:30 06/12/24 06:30 Assessment and Plan Assessment: 1. End-stage renal disease on hemodialysis on Sunday schedule via right forearm AV fistula 2. Bladder mass with high suspicion for malignancy status post resection on 06/12/2024 3. CKD mineral bone disorder 4. History of uterine cancer status post abdominal hysterectomy. Plan: Hemodialysis today Patient may be discharged from nephrology standpoint postdialysis if cleared by urology. Thank you for the consultation
[2024-06-13 12:12] VITALS: BP 138/52; PULSE 72; RESP 16; TEMP 98
[2024-06-13] MEDS: CALCIUM CARBONATE 500 MG CHEWABLE PO PRN (12:42)
== END 2024-06-13 13:59 | disposition home or self-care (01) ==
LOC: OR 06:15 → 4SSUR 15:50 → OR 06-13 13:59
PROVIDERS: ATTEND Urology
DX: C67.4 Malignant neoplasm of posterior wall of bladder (principal); I12.0 Hypertensive chronic kidney disease with stage 5 chronic kidney disease or end stage renal disease; N18.6 End stage renal disease; Z99.2 Dependence on renal dialysis; E78.5 Hyperlipidemia, unspecified; I25.2 Old myocardial infarction; J44.89 Other specified chronic obstructive pulmonary disease; Z91.89 Other specified personal risk factors, not elsewhere classified; Z79.899 Other long term (current) drug therapy; Z87.891 Personal history of nicotine dependence; Z85.42 Personal history of malignant neoplasm of other parts of uterus; Z87.440 Personal history of urinary (tract) infections; Z86.73 Personal history of transient ischemic attack (TIA), and cerebral infarction without residual deficits; Z88.6 Allergy status to analgesic agent; Z88.1 Allergy status to other antibiotic agents
CPT/HCPCS: 52235; 80053; 85025; 88342; 88307; 88341; J2250; J1100; J0690; J2405; J3010; J2270 ×2; J2704; J2371; 90935

== ENCOUNTER 2024-06-25 16:50 | Observation (INO) | payer MEDICARE, BC, OTHER ==
--- NOTE | 2024-06-25 16:59 | ED ---
General Adult HPI - General Stated complaint: syncope Time Seen by Provider: 06/25/24 16:56 - History of Present Illness Initial comments: Dictation was produced using [employer] dictation software. please excuse any grammatical, word or spelling errors. Chief Complaint: 78-year-old female presents to the emergency department after syncope History of Present Illness: Patient 70-year-old female presents emergency department for syncope. Patient states that she was at dialysis today. She states that she could not have dialysis because her blood pressure was too low. She was sent home. Patient went to go visit her friend at [facility]. While visiting patient passed out. EMS was called patient was brought to the ER. Patient states she feels horrible. Denies any symptoms otherwise at the bedside. Patient reports having a history of bladder cancer waiting for major surgery to remove bladder. The ROS documented in this emergency department record has been reviewed and confirmed by me. Those systems with pertinent positive or negative responses have been documented in the HPI. All other systems are other negative and/or noncontributory. - Related Data Home Medications Medication Instructions Recorded Confirmed Calcium Acetate 1,334 mg PO TID-W/MEALS 12/22/19 06/25/24 oxyCODONE-APAP 10-325MG [Percocet 1 tab PO TID 02/18/22 06/25/24 10-325 mg] Albuterol Inhaler [Ventolin Hfa 2 puff INHALATION RT-QID PRN 06/15/22 06/25/24 Inhaler] Folic Acid/Vit B Complex and C 0.8 mg PO HS 08/27/23 06/25/24 [Nephro-Karla Tablet] Lidocaine-Prilocaine Cream [Emla 1 applic TOPICAL MOWEFR PRN 08/27/23 06/25/24 Cream 2.5%/2.5%] Ipratropium-Albuterol Nebulize 3 ml INHALATION RT-TID PRN 05/06/24 06/25/24 [Duoneb 0.5 mg-3 mg/3 ml Soln] Vitamin B Complex 1 cap PO HS 05/06/24 06/25/24 Metoprolol Succinate (ER) [Toprol 12.5 mg PO HS PRN 06/06/24 06/25/24 XL] Midodrine [ProAmatine] 5 mg PO DIRECTED 06/25/24 06/25/24 Previous Rx's Medication Instructions Recorded Acetaminophen Tab [Tylenol] 650 mg PO Q4HR PRN tab 01/22/23 Allergies Allergy/AdvReac Type Severity Reaction Status Date / Time cefuroxime Allergy Rash/Hives Verified 06/25/24 21:03 naproxen [From Naprosyn] Allergy Dyspnea Verified 06/25/24 21:03 blood thinner Allergy "brain Uncoded 06/25/24 21:03 bleed" Review of Systems ROS Statement: Those systems with pertinent positive or pertinent negative responses have been documented in the HPI. ROS Other: All systems not noted in ROS Statement are negative. 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 lower arm Last Myocardial Infarction Date:: unknown History of Any Multi-Drug Resistant Organisms: ESBL Date of last positivie culture/infection: 05/07/24 MDRO Source:: urine Past Surgical History: Appendectomy, Bariatric Surgery, Cholecystectomy, Hyste rectomy, Joint Replacement, Tonsillectomy Additional Past Surgical History / Comment(s): gastric bypass, surgery after fall -fx rt leg and foot, kashif knee replacement, kashif cataracts, surgery x 2 or "brain bleed", fistula for dialysis, colonoscopy Past Anesthesia/Blood Transfusion Reactions: No Reported Reaction, Family History of Problems w/ Anesthesia Additional Past Anesthesia/Blood Transfusion Reaction / Comment(s): MOTHER PONV Smoking Status: Former smoker - Past Family History Mother Family Medical History: Cancer Father Family Medical History: Diabetes Mellitus, Hypertension Sister(s) Family Medical History: Cancer General Exam - General Exam Comments Initial Comments: PHYSICAL EXAM: General Impression: Alert and oriented x3, not in acute distress HEENT: Normocephalic atraumatic, extra-ocular movements intact, pupils equal and reactive to light bilaterally, mucous membranes moist. Cardiovascular: Heart regular rate and rhythm Chest: Able to complete full sentences, no retractions, no tachypnea Abdomen: abdomen soft, non-tender, non-distended, no organomegaly Musculoskeletal: Pulses present and equal in all extremities, no peripheral edema Motor: no focal deficits noted Neurological: CN II-XII grossly intact, no focal motor or sensory deficits noted Skin: Intact with no visualized rashes Psych: Normal affect and mood Course Vital Signs 06/25/24 06/25/24 06/25/24 16:51 17:28 19:15 Temperature 99.1 F Pulse Rate 78 69 80 Respiratory 18 18 16 Rate Blood Pressure 98/65 100/61 110/56 O2 Sat by Pulse 95 95 96 Oximetry EKG Findings - EKG Comments: EKG Findings:: My EKG interpretation: Ventricular rate 79, sinus rhythm, CT 154, QRS 105, QTc 418. No CT prolongation, no QTC prolongation, no ST or T-wave changes noted. Overall, this EKG is unremarkable Medical Decision Making - Medical Decision Making Was pt. sent in by a medical professional or institution (, PA, INSTANTIZER OPERATOR, urgent care, hospital, or jail...) When possible be specific @ -No Did you speak to anyone other than the patient for history (EMS, parent, family, police, friend...)? What history was obtained from this source @ -No Did you review nursing and triage notes (agree or disagree)? Why? @ -I reviewed and agree with nursing and triage notes Were old charts reviewed (outside hosp., previous admission, EMS record, old EKG, old radiological studies, urgent care reports/EKG's, jail records)? Report findings @ -No old charts were reviewed Differential Diagnosis (chest pain, altered mental status, abdominal pain women, abdominal pain men, vaginal bleeding, musculoskeletal, weakness, fever, dyspnea, syncope, headache, dizziness, GI bleed, back pain, seizure, CVA, palpatations, mental health)? @ -Differential Syncope: Valvular disease, hypertrophic cardiomyopathy, pulmonary embolism, tamponade, ta chycardia, bradycardia, [place], hypovolemia, hemorrhage, dissection, anemia, intracranial hemorrhage, seizure, hypoglycemia, carbon monoxide poisoning, this is not meant to be an all-inclusive list. EKG interpreted by me (3pts min.). @ -See above X-rays interpreted by me (1pt min.). @ -Chest x-ray is nonacute CT interpreted by me (1pt min.). @ -CT head and C-spine shows no acute processes U/S interpreted by me (1pt. min.). @ -None done What testing was considered but not performed or refused? (CT, X-rays, U/S, labs)? Why? @ -None What meds were considered but not given or refused? Why? @ -None Was smoking cessation discussed for >3mins.? @ -No Were there social determinants of health that impacted care today? How? (Homelessness, low income, unemployed, alcoholism, drug addiction, trans portation, low edu. Level, literacy, decrease access to med. care, group home, rehab)? @ -No Was there de-escalation of care discussed even if they declined (Discuss DNR or withdrawal of care, Hospice)? DNR status @ -No What co-morbidities impacted this encounter? (DM, HTN, Smoking, COPD, CAD, Cancer, CVA, ARF, Chemo, Hep., AIDS, mental health diagnosis, sleep apnea, morbid obesity)? @ -Kidney disease Was patient admitted / discharged? Hospital course, mention meds given and route, prescriptions, significant lab abnormalities, going to OR and other pertinent info. @ -70-year-old female presents to the emergency department after multiple syncopal episodes. Patient allegedly was hypotensive at dialysis and dialysis was not pursued. Vital signs upon arrival shows soft blood pressure 98/65. P atient given fluids with slight improvement. Laboratory evaluation is unremarkable. Initial lactic acidosis 2.7 however improved to 2.0 after IV fluids. Given patient's multiple high risk features she will be admitted with consultation of cardiology and nephrology. Case discussed with hospitalist for admission Did you discuss the management of the patient with other professionals (professionals i.e. , PA, INSTANTIZER OPERATOR, lab, RT, psych nurse, ornamental bronze worker, blow torch burner, teacher, tactical response group officer, outsole caser)? Give summary @ -Above Was critical care preformed (if so, how long)? @ -No Undiagnosed new problem with uncertain prognosis? @ -No Drug Therapy requiring intensive monitoring for toxicity (Heparin, Nitro, Insulin, Cardizem)? @ -No Were any procedures done? @ -No Diagnosis/symptom? Acute, or Chronic, or Acute on Chronic? Uncomplicated (without systemic symptoms) or Complicated (systemic symptoms)? @ -Syncope Side effects of treatment? @ -No Exacerbation, Progression, or Severe Exacerbation? @ -No Poses a threat to life or bodily function? How? (Chest pain, [place], [place], pneumonia, PE, COPD, DKA, ARF, appy, cholecystitis, CVA, Diverticulitis, Homicidal, Suicidal, threat to staff... and all critical care pts) @ -yes - Lab Data Result diagrams: 06/25/24 17:09 06/25/24 17:09 Lab Results 06/25/24 06/25/24 06/25/24 Range/Units 17:09 17:09 17:09 WBC 8.83 (4.50-10.00) 10*3/uL RBC 3.02 L (4.10-5.20) 10*6/uL Hgb 10.2 L (12.0-15.0) g/dL Hct 31.1 L (37.2-46.3) % MCV 103.0 H (80.0-97.0) fL MCH 33.8 H (27.0-32.0) pg MCHC 32.8 (32.0-37.0) g/dL Plt Count 224 (140-440) 10*3/uL MPV 9.2 L (9.5-12.2) fL Immature Gran % (Auto) 0.5 % Neutrophils % 74.0 % Lymphocytes % 13.1 % Monocytes % 9.5 % Eosinophils % 2.4 % Basophils % 0.5 % Immature Gran # 0.04 (0.00-0.04) 10*3/uL Neutrophils # 6.54 (1.80-7.70) 10*3/uL Lymphocytes # 1.16 (0.90-5.00) 10*3/uL Monocytes # 0.84 (0.20-1.00) 10*3/uL Eosinophils # 0.21 (0.04-0.35) 10*3/uL Basophils # 0.04 (0.00-0.10) 10*3/uL PT 10.1 (10.0-12.5) sec INR 0.9 (<1.2) APTT 24.0 (22.0-30.0) sec Sodium 135 L (137-145) mmol/L Potassium 3.4 L (3.5-5.1) mmol/L Chloride 95 L (98-107) mmol/L Carbon Dioxide 30 (22-30) mmol/L Anion Gap 10 mmol/L BUN 19 H (7-17) mg/dL Creatinine 2.53 H (0.52-1.04) mg/dL Est GFR (CKD-EPI)AfAm 20 (>60 ml/min/1.73 sqM) Est GFR (CKD-EPI)NonAf 18 (>60 ml/min/1.73 sqM) Glucose 152 H (74-99) mg/dL Lactic Ac Sepsis Rflx Plasma Lactic Acid Tulio (0.7-2.0) mmol/L Calcium 8.5 (8.4-10.2) mg/dL Magnesium 1.9 (1.6-2.3) mg/dL Total Bilirubin 0.8 (0.2-1.3) mg/dL AST 39 H (14-36) U/L ALT 20 (4-34) U/L Alkaline Phosphatase 254 H (38-126) U/L Troponin I (0.000-0.034) ng/mL Total Protein 6.4 (6.3-8.2) g/dL Albumin 3.5 (3.5-5.0) g/dL 06/25/24 06/25/24 06/25/24 Range/Units 17:09 17:09 17:30 WBC (4.50-10.00) 10*3/uL RBC (4.10-5.20) 10*6/uL Hgb (12.0-15.0) g/dL Hct (37.2-46.3) % MCV (80.0-97.0) fL MCH (27.0-32.0) pg MCHC (32.0-37.0) g/dL Plt Count (140-440) 10*3/uL MPV (9.5-12.2) fL Immature Gran % (Auto) % Neutrophils % % Lymphocytes % % Monocytes % % Eosinophils % % Basophils % % Immature Gran # (0.00-0.04) 10*3/uL Neutrophils # (1.80-7.70) 10*3/uL Lymphocytes # (0.90-5.00) 10*3/uL Monocytes # (0.20-1.00) 10*3/uL Eosinophils # (0.04-0.35) 10*3/uL Basophils # (0.00-0.10) 10*3/uL PT (10.0-12.5) sec INR (<1.2) APTT (22.0-30.0) sec Sodium (137-145) mmol/L Potassium (3.5-5.1) mmol/L Chloride (98-107) mmol/L Carbon Dioxide (22-30) mmol/L Anion Gap mmol/L BUN (7-17) mg/dL Creatinine (0.52-1.04) mg/dL Est GFR (CKD-EPI)AfAm (>60 ml/min/1.73 sqM) Est GFR (CKD-EPI)NonAf (>60 ml/min/1.73 sqM) Glucose (74-99) mg/dL Lactic Ac Sepsis Rflx Y Plasma Lactic Acid Tulio 2.7 H* (0.7-2.0) mmol/L Calcium (8.4-10.2) mg/dL Magnesium (1.6-2.3) mg/dL Total Bilirubin (0.2-1.3) mg/dL AST (14-36) U/L ALT (4-34) U/L Alkaline Phosphatase (38-126) U/L Troponin I <0.012 (0.000-0.034) ng/mL Total Protein (6.3-8.2) g/dL Albumin (3.5-5.0) g/dL / Range/Units 20:17 WBC (4.50-10.00) 10*3/uL RBC (4.10-5.20) 10*6/uL Hgb (12.0-15.0) g/dL Hct (37.2-46.3) % MCV (80.0-97.0) fL MCH (27.0-32.0) pg MCHC (32.0-37.0) g/dL Plt Count (140-440) 10*3/uL MPV (9.5-12.2) fL Immature Gran % (Auto) % Neutrophils % % Lymphocytes % % Monocytes % % Eosinophils % % Basophils % % Immature Gran # (0.00-0.04) 10*3/uL Neutrophils # (1.80-7.70) 10*3/uL Lymphocytes # (0.90-5.00) 10*3/uL Monocytes # (0.20-1.00) 10*3/uL Eosinophils # (0.04-0.35) 10*3/uL Basophils # (0.00-0.10) 10*3/uL PT (10.0-12.5) sec INR (<1.2) APTT (22.0-30.0) sec Sodium (137-145) mmol/L Potassium (3.5-5.1) mmol/L Chloride (98-107) mmol/L Carbon Dioxide (22-30) mmol/L Anion Gap mmol/L BUN (7-17) mg/dL Creatinine (0.52-1.04) mg/dL Est GFR (CKD-EPI)AfAm (>60 ml/min/1.73 sqM) Est GFR (CKD-EPI)NonAf (>60 ml/min/1.73 sqM) Glucose (74-99) mg/dL Lactic Ac Sepsis Rflx Plasma Lactic Acid Tulio 2.0 (0.7-2.0) mmol/L Calcium (8.4-10.2) mg/dL Magnesium (1.6-2.3) mg/dL Total Bilirubin (0.2-1.3) mg/dL AST (14-36) U/L ALT (4-34) U/L Alkaline Phosphatase (38-126) U/L Troponin I (0.000-0.034) ng/mL Total Protein (6.3-8.2) g/dL Albumin (3.5-5.0) g/dL Disposition Clinical Impression: Syncope Disposition: ADMITTED IP TO THIS HOSP Condition: Fair Referrals: None,Stated [Primary Care Provider] - 1-2 days Decision Time: 21:17
[2024-06-25] MEDS: SODIUM CHLORIDE 0.9% 500 ML 500 ML IV STA (17:11)
[2024-06-25 17:14] LABS: Basophils # (A) 0.04 10*3/uL (0.00-0.10); Basophils % (A) 0.5 %; Eosinophils # (A) 0.21 10*3/uL (0.04-0.35); Eosinophils % (A) 2.4 %; HCT 31.1 % (37.2-46.3); HGB 10.2 g/dL (12.0-15.0); Lymphocytes # (A) 1.16 10*3/uL (0.90-5.00); Lymphocytes % (A) 13.1 %; MCH 33.8 pg (27.0-32.0); MCHC 32.8 g/dL (32.0-37.0); Mean Platelet Volume 9.2 fL (9.5-12.2); Monocytes # (A) 0.84 10*3/uL (0.20-1.00); Monocytes % (A) 9.5 %; Neutrophils # (A) 6.54 10*3/uL (1.80-7.70); Platelet Count 224 10*3/uL (140-440); RBC 3.02 10*6/uL (4.10-5.20); RDW 14.8 % (11.5-14.5); WBC 8.83 10*3/uL (4.50-10.00)
[2024-06-25 17:25] LABS: INR 0.9 (<1.2); Prothrombin Time 10.1 sec (10.0-12.5)
[2024-06-25 17:31] LABS: ALT 20 U/L (4-34); AST 39 U/L (14-36); African American GFR (CKD) 20 (>60 ml/min/1.73 sqM); Albumin 3.5 g/dL (3.5-5.0); Alkaline Phosphatase 254 U/L (38-126); Anion Gap 10 mmol/L; Blood Urea Nitrogen 19 mg/dL (7-17); Calcium 8.5 mg/dL (8.4-10.2); Carbon Dioxide 30 mmol/L (22-30); Chloride 95 mmol/L (98-107); Glucose 152 mg/dL (74-99); Magnesium 1.9 mg/dL (1.6-2.3); Non-African American GFR(CKD) 18 (>60 ml/min/1.73 sqM); Potassium 3.4 mmol/L (3.5-5.1); Sodium 135 mmol/L (137-145); Total Bilirubin 0.8 mg/dL (0.2-1.3); Total Protein 6.4 g/dL (6.3-8.2)
--- NOTE | 2024-06-25 17:53 | XR ---
EXAMINATION TYPE: XR chest 1V portable DATE OF EXAM: 06/25/2024 5:23 PM COMPARISON: Chest radiographs from 04/07/2024. CLINICAL INDICATION: Female, 78 years old with history of syncope, fall; TECHNIQUE: XR chest 1V portable Frontal view of the chest. FINDINGS: Lungs/Pleura: There is no evidence of pleural effusion, focal consolidation, or pneumothorax. Pulmonary vascularity: Unremarkable. Heart/mediastinum: Cardiomediastinal silhouette is unremarkable. Atherosclerotic calcifications are seen in the aorta. Musculoskeletal: No acute osseous pathology. IMPRESSION: No acute cardiopulmonary disease/process. [facility], , 06/25/2024 5:50 PM
--- NOTE | 2024-06-25 19:02 | CT ---
EXAMINATION TYPE: CT brain cspine wo con DATE OF EXAM: 06/25/2024 6:23 PM COMPARISON: 12/31/2023. CLINICAL INDICATION: Female, 78 years old with history of syncope, fall; fall, pain TECHNIQUE: Brain: Multiple axial CT images of the brain were obtained without IV contrast. Cspine: Axial CT images from the skull base to the inferior aspect of T2 we obtained without intraven ous contrast. Coronal and sagittal reformatted images were also reviewed. . CT DLP: 1347.8 mGycm, Automated exposure control for dose reduction was used. FINDINGS: Brain: Extra-axial spaces: No abnormal extra-axial fluid collections. Ventricular system: Dilatation in proportion to cerebral atrophy. Cerebral parenchyma: Cerebral atrophy. No acute intraparenchymal hemorrhage or mass effect. The das -white junction is well differentiated. Scattered hypoattenuating areas are seen within the white mat ter. Cerebellum: Unremarkable. Mass effect: No evidence of midline shift. Intracranial vasculature: Atherosclerotic calcifications of the intracranial vessels. Soft tissues: Normal. Calvarium/osseous structures: No depressed skull fracture. Postsurgical changes to the right skull. Paranasal sinuses and mastoid air cells: Comparison is mucosal thickening in the right maxillary sinu s. Visualized orbits: Bilateral aphakia Cervical spine: Fracture: None. Osseous structures: Multilevel degenerative disc disease changes with endplate spurring and disc oste ophyte complex's. Vertebral alignment: Within normal limits. Spinal canal/Neural Foramina: Disc osteophyte complexes at C5-C6 and C6-C7 with at least mild spinal canal stenosis. Facet joint uncovertebral joint arthropathy scattered throughout the cervical spine w ith varying degrees of neural foraminal stenosis. Neck soft tissues: Prevertebral soft tissues are within normal limits. Other: The airway is patent. The lung apices are clear. Severe degeneration changes of the bone-on-nicolas ne angulation. There is subchondral cystic change. IMPRESSION: 1. No acute intracranial process. 2. No evidence of cervical spine fracture. 3. Moderate degenerative disc disease at C5-C6 and C6-C7. 4. Moderate right maxillary sinus paranasal sinus disease. [facility], , 06/25/2024 7:00 PM
[2024-06-25] MEDS ORDERED: NALOXONE 0.4 MG/ML 1 ML VIAL IV PRN (21:14)
[2024-06-25] MEDS: SODIUM CHLORIDE 0.9% 1,000 ML IV STA (21:29)
[2024-06-25] MEDS: SODIUM CHLORIDE 0.9% 1,000 ML IV SCH (22:34)
[2024-06-26] MEDS: oxyCODONE-APAP 10-325MG 1 EACH TAB PO STA (05:56)
--- NOTE | 2024-06-26 10:26 | US ---
EXAMINATION TYPE: US carotid duplex BILAT DATE OF EXAM: 06/26/2024 COMPARISON: US 2020 CLINICAL INDICATION: Female, 78 years old with history of syncope; Syncope per order. Hx stroke x 2. Prior smoker. Dizziness. TECHNIQUE: Grayscale, color Doppler and spectral Doppler evaluation of the bilateral carotid systems and vertebral arteries. Indirect Doppler criteria was utilized. FINDINGS: EXAM MEASUREMENTS: RIGHT: Peak Systolic Velocity (PSV) cm/sec ----- Right CCA: 121 ----- Right ICA: 133 ----- Right ECA: 80.2 ICA/CCA ratio: 1.10 RIGHT: End Diastole cm/sec ----- Right CCA: 20.2 ----- Right ICA: 29.2 ----- Right ECA: 7.13 LEFT: Peak Systolic Velocity (PSV) cm/sec ----- Left CCA: 117 ----- Left ICA: 141 ----- Left ECA: 130 ICA/CCA ratio: 1.21 LEFT: End Diastole cm/sec ----- Left CCA: 24.7 ----- Left ICA: 34.8 ----- Left ECA: 14.1 VERTEBRALS (direction of flow): Right Vertebral: Antegrade Left Vertebral: Antegrade Rhythm: Normal RESTUARANT CREW WORKER NOTES: * Mildly elevated velocities within right CCA, prox right ICA, left proximal ICA, left mid ICA, and left ECA. IMPRESSION: Slight elevated velocities bilaterally without significant atherosclerotic narrowing seen. This may b e due to underlying hypertension. Clinically correlate. No hemodynamically significant internal carot id artery stenosis on either side. Criteria for Assigning % of Stenosis / Diameter reduction (Estimation based on the indirect measurements of the internal carotid artery velocities (ICA PSV). 1. Normal (no stenosis)=ICA PSV < 180 cm/s: ratio < 2.0: ICA EDV<40 cm/s. 2. Less than 50% stenosis=ICA PSV < 180 cm/s: ratio < 2.0: ICA EDV<40 cm/s. 3. 50 to 69% stenosis=ICA PSV of 180 to 230 cm/s: ration 2.0 ? 4.0: ICA EDV 40-100 cm/s. PSV 125-180 cm/sec and ICA/CCA PSV Ratio ? 2.0 is also consistent with 50-69% stenosis 4. Greater than 70% stenosis to near occlusion= ICA PSV > 230 cm/s: ratio > 4.0: ICA EDV > 100 cm/s. 5. Near occlusion= ICA PSV velocities may be low or undetectable: variable ratio and ICA EDV. 6. Total occlusion=unable to detect flow. [facility], , 06/26/2024 10:23 AM
[2024-06-26] MEDS ORDERED: NON FORMULARY DRUG (Albuterol Inhaler 90 MCG Puff) INHALATION PRN (10:47)
[2024-06-26] MEDS ORDERED: METOPROLOL SUCCINATE (ER) 25 MG TAB.ER.24H PO PRN (10:47)
[2024-06-26] MEDS ORDERED: IPRATROPIUM-ALBUTEROL 3 ML NEB INHALATION PRN (10:47)
[2024-06-26] MEDS ORDERED: ACETAMINOPHEN TAB 325 MG TAB PO PRN (10:47)
[2024-06-26] MEDS ORDERED: MIDODRINE 5 MG TAB PO PRN (10:47)
[2024-06-26] MEDS ORDERED: ENOXAPARIN 40 MG/0.4 ML SYRINGE SQ SCH (11:00)
[2024-06-26] MEDS ORDERED: oxyCODONE-APAP 10-325MG 1 EACH TAB PO SCH (11:00)
--- NOTE | 2024-06-26 11:01 | P.CRDCN ---
History of Present Illness Consult date: 06/26/24 History of present illness: - . HPI: This is a 78-year-old lady with a known history of end-stage renal disease on hemodialysis with history of orthostatic hypotension for which she takes of ProAmatine. She came into the hospital after an episode of what seems to be chay r syncope. She had her dialysis yesterday and drove to a jail to visit her friend and while at the jail she felt dizzy lightheaded her vision seemed a little bit off and then she had an episode of being passing out, EMS was called and she was brought in. On arrival her blood pressure was 85/45. She received about 1 and half liter of fluids she feels well this morning denies any chest pain or shortness of breath resting comfortably. She is known to have orthostatic hypotension has been on ProAmatine. She does not have any documented evidence of heart failure in the past but has history of orthostatic hypotension. There is a question of bladder cancer and she is considering surgery.. RELEVANT PAST MEDICAL HISTORY:. MEDICATIONS: ProAmatine, metoprolol succinate as needed ALLERGIES:. REVIEW OF SYSTEMS: Has occasional weakness dizziness lightheadedness. No episodes of any chest pain or shortness of breath.. PHYSICIAL EXAM: Blood pressure is about 117/55 heart rate is in the 80s sinus is S1-S2 heard normally short systolic murmur lungs reveal decent air entry abdomen is soft lower extremities reveal diminished pulses Central nervous system grossly no focal deficits.. IMPRESSION: 1. Probable dehydration related near syncope. 2. End-stage renal disease on hemodialysis. 3. Orthostatic hypotension. 4.. 5.. RECOMMENDATIONS: Hydration echocardiogram carotid Doppler and 2-week event monitor at the time of discharge continue telemetry for now. Her whole presentation is probably related to dehydration following dialysis or and underlying orthostatic hypotension. Resume ProAmatine hold beta-linus for now. Discussed my thoughts in detail with the patient I will review the office record. 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 lower arm Last Myocardial Infarction Date:: unknown History of Any Multi-Drug Resistant Organisms: ESBL Date of last positivie culture/infection: 05/07/24 MDRO Source:: urine Past Surgical History: Appendectomy, Bariatric Surgery, Cholecystectomy, Hysterectomy, Joint Replacement, Tonsillectomy Additional Past Surgical History / Comment(s): gastric bypass, surgery after fall -fx rt leg and foot, kashif knee replacement, kashif cataracts, surgery x 2 or "brain bleed", fistula for dialysis, colonoscopy Past Anesthesia/Blood Transfusion Reactions: No Reported Reaction, Family History of Problems w/ Anesthesia Additional Past Anesthesia/Blood Transfusion Reaction / Comment(s): MOTHER PONV Smoking Status: Former smoker - Past Family History Mother Family Medical History: Cancer Father Family Medical History: Diabetes Mellitus, Hypertension Sister(s) Family Medical History: Cancer Medications and Allergies Home Medications Medication Instructions Recorded Confirmed Type Calcium Acetate 1,334 mg PO TID-W/MEALS 12/22/19 06/25/24 History oxyCODONE-APAP 10-325MG [Percocet 1 tab PO TID 02/18/22 06/25/24 History 10-325 mg] Albuterol Inhaler [Ventolin Hfa 2 puff INHALATION RT-QID PRN 06/15/22 06/25/24 History Inhaler] Acetaminophen Tab [Tylenol] 650 mg PO Q4HR PRN tab 01/22/23 06/25/24 Rx Folic Acid/Vit B Complex and C 0.8 mg PO HS 08/27/23 06/25/24 History [Nephro-Karla Tablet] Lidocaine-Prilocaine Cream [Emla 1 applic TOPICAL MOWEFR PRN 08/27/23 06/25/24 History Cream 2.5%/2.5%] Ipratropium-Albuterol Nebulize 3 ml INHALATION RT-TID PRN 05/06/24 06/25/24 History [Duoneb 0.5 mg-3 mg/3 ml Soln] Vitamin B Complex 1 cap PO HS 05/06/24 06/25/24 History Metoprolol Succinate (ER) [Toprol 12.5 mg PO HS PRN 06/06/24 06/25/24 History XL] Midodrine [ProAmatine] 5 mg PO DIRECTED 06/25/24 06/25/24 History Allergies Allergy/AdvReac Type Severity Reaction Status Date / Time cefuroxime Allergy Rash/Hives Verified 06/25/24 21:03 naproxen [From Naprosyn] Allergy Dyspnea Verified 06/25/24 21:03 blood thinner Allergy "brain Uncoded 06/25/24 21:03 bleed" Physical Exam Vitals: Vital Signs Temp Pulse Resp BP Pulse Ox 06/26/24 10:30 64 16 90/50 96 06/26/24 08:05 87 16 117/55 98 06/26/24 07:00 80 16 112/49 06/26/24 06:00 88 16 139/71 93 L 06/26/24 04:30 85 16 99/53 93 L 06/26/24 03:37 82 16 92/53 94 L 06/26/24 02:48 17 92 L 06/26/24 01:00 110/52 06/26/24 00:00 72 16 85/45 06/25/24 23:00 71 16 109/50 95 06/25/24 22:01 75 14 111/48 93 L 06/25/24 21:40 62 18 88/44 94 L 06/25/24 21:13 93 16 100 06/25/24 19:15 80 16 110/56 96 06/25/24 17:28 69 18 100/61 95 06/25/24 16:51 99.1 F 78 18 98/65 95 Intake and Output 06/25/24 06/26/24 06/26/24 22:59 06:59 14:59 Other: Weight 102.058 kg Results 06/25/24 17:09 06/25/24 17:09 Cardiac Enzymes 06/25/24 06/25/24 Range/Units 17:09 17:09 AST 39 H (14-36) U/L Troponin I <0.012 (0.000-0.034) ng/mL Coagulation 06/25/24 Range/Units 17:09 PT 10.1 (10.0-12.5) sec APTT 24.0 (22.0-30.0) sec CBC 06/25/24 Range/Units 17:09 WBC 8.83 (4.50-10.00) 10*3/uL RBC 3.02 L (4.10-5.20) 10*6/uL Hgb 10.2 L (12.0-15.0) g/dL Hct 31.1 L (37.2-46.3) % Plt Count 224 (140-440) 10*3/uL Comprehensive Metabolic Panel 06/25/24 Range/Units 17:09 Sodium 135 L (137-145) mmol/L Potassium 3.4 L (3.5-5.1) mmol/L Chloride 95 L (98-107) mmol/L Carbon Dioxide 30 (22-30) mmol/L BUN 19 H (7-17) mg/dL Creatinine 2.53 H (0.52-1.04) mg/dL Glucose 152 H (74-99) mg/dL Calcium 8.5 (8.4-10.2) mg/dL AST 39 H (14-36) U/L ALT 20 (4-34) U/L Alkaline Phosphatase 254 H (38-126) U/L Total Protein 6.4 (6.3-8.2) g/dL Albumin 3.5 (3.5-5.0) g/dL Current Medications Generic Name Dose Route Start Last Admin Trade Name Freq PRN Reason Stop Dose Admin Acetaminophen 650 mg 06/26/24 10:47 Acetaminophen Tab 325 Mg Tab PO Q4HR PRN Fever>101 Albuterol/Ipratropium 3 ml 06/26/24 10:47 Ipratropium-Albuterol 3 Ml Neb INHALATION RT-TID PRN Shortness Of Breath Enoxaparin Sodium 40 mg 06/26/24 11:00 Enoxaparin 40 Mg/0.4 Ml Syringe SQ DAILY WILFREDO Sodium Chloride 1,000 mls @ 20 mls/hr 06/25/24 21:15 06/25/24 22:34 Saline 0.9% IV 20 mls/hr .Q24H WILFREDO Administration Metoprolol Succinate 12.5 mg 06/26/24 10:47 Metoprolol Succinate (Er) 25 Mg Tab.Er.24h PO HS PRN SBP>130 Midodrine 5 mg 06/26/24 10:47 Midodrine 5 Mg Tab PO AC-TID PRN Hypotension Naloxone HCl 0.2 mg 06/25/24 21:14 Naloxone 0.4 Mg/Ml 1 Ml Vial IV Q2M PRN Opioid Reversal Non-Formulary Medication 2 puff 06/26/24 10:47 Albuterol Inhaler INHALATION RT-QID PRN Shortness Of Breath Non-Formulary Medication 1,334 mg 06/26/24 12:30 Calcium Acetate [Calcium Acetate] PO TID-W/MEALS WILFREDO Non-Formulary Medication 0.8 mg 06/26/24 21:00 Folic Acid/Vit B Complex And C [Nephro-Karla Tablet] PO HS WILFREDO Non-Formulary Medication 1 cap 06/26/24 21:00 Vitamin B Complex [Vitamin B Complex] PO HS WILFREDO Oxycodone/Acetaminophen 1 each 06/26/24 11:00 Oxycodone-Apap 10-325mg 1 Each Tab PO TID WILFREDO Intake and Output 06/25/24 06/26/24 06/26/24 22:59 06:59 14:59 Other: Weight 102.058 kg 06/25/24 17:09 06/25/24 17:09
[2024-06-26 11:04] VITALS: RESP 18
[2024-06-26] MEDS ORDERED: CALCIUM ACETATE 667 MG TAB PO SCH (12:30)
[2024-06-26] MEDS ORDERED: MIDODRINE 5 MG TAB PO SCH (12:30)
[2024-06-26] MEDS: MIDODRINE 5 MG TAB PO SCH (12:37)
[2024-06-26 13:12] VITALS: BP 135/92; PULSE 69; TEMP 97.9
[2024-06-26] MEDS ORDERED: FOLIC ACID-VIT B COMPLEX-VIT C 1 CAP PO SCH (21:00)
[2024-06-26] MEDS ORDERED: NON FORMULARY DRUG (Vitamin B Complex [Vitamin B Complex] 1 EACH Capsule) PO SCH (21:00)
--- NOTE | 2024-06-26 21:35 | P.HPIM ---
History of Present Illness H&P Date: 06/26/24 Chief Complaint: Syncope pleasant [address] Rizvi. Chronic stable medical conditions include hypertension, hyperlipidemia, depression, anxiety, osteoarthritis. End- stage kidney disease on hemodialysis. Patient gets hemodialysis Sunday and Sunday. Yesterday when she finished her dialysis her blood pressure was running low around 90 systolic. She went to girlfriends. She nearly passed out twice. Has right upper extremity fistula. Appetite is fair. No chest pain palpitation. Her blood pressure does fluctuate. Has midodrine ordered as needed. Patient also been diagnosed with bladder cancer. Locally by Dr. Joshua. Needs bladder surgery and is pending referral to urologist in [place]. Otherwise feels fair. Review of systems: GEN.: Tired EYES: None HEENT: None NECK: None RESPIRATORY: None CARDIOVASCULAR: Some edema GASTROINTESTINAL: None GENITOURINARY: None MUSCULOSKELETAL: Joint pains LYMPHATICS: None HEMATOLOGICAL: None PSYCHIATRY: Anxious NEUROLOGICAL: No focal currently Past medical history to include: Hypertension, hyperlipidemia, depression, anxiety, osteoarthritis, end-stage kidney disease on hemodialysis, uterine cancer, bariatric surgery, depression, osteoarthritis. Bladder cancer Social history: Quit smoking over 30 years ago. Lives alone. Does use a cane and a walker Physical examination: VITAL SIGNS: 98.6, 87, 18, sitting 116/90. Standing 144 x 6996% room air GENERAL: BMI 39.9, reclining in bed EYES: Pupils equal. Conjunctiva normal. HEENT: External appearance of nose and ears normal, oral cavity grossly normal. NECK: JVD not raised; masses not palpable. HEART: First and second heart sounds are normal; some edema. LUNGS: Respiratory rate normal; decreased breath sound ABDOMEN: Soft, nontender, liver spleen not palpable, no masses palpable. PSYCH: Alert and oriented x3; mood and affect anxiousl. MUSCULOSKELETAL:No Clubbing/cyanosis;muscles-grossly intact. OA NEUROLOGICAL: Cranial nerves grossly intact. Power sensation grossly intact. INVESTIGATIONS, reviewed in the clinical context: Carotid Doppler: No significant stenosis June 25, 2024: White count 8.8 hemoglobin 10.2 platelets 224 sodium 135 potassium 3.4 BUN 19 creatinine 2.53 EKG tracing personally reviewed by me-normal sinus rhythm. Poor R wave progression Chest x-ray film personally reviewed by me-some elevation of right diaphragm Assessment and plan: -Episode of patient having syncope. In the setting of hypotension and orthostatic. Patient left on dialysis with a blood pressure of 90. Has noted fluctuating blood pressure. - Orthostatic hypotension Start midodrine 2.5 AC twice daily. Thigh-high bilateral stockings -COPD in a prior smoker Inhaler as needed -Anemia of chronic kidney disease -End-stage kidney disease on hemodialysis. From diabetic nephropathy Days Sunday -Essential hypertension, Told the patient to have the blood pressure running a bit on the higher side. She has been off blood pressure medications. Will use Toprol-XL as needed. -Primary osteoarthritis Tylenol as needed -Obesity BMI 35.4 Weight loss measures -DO NOT RESUSCITATE Care was discussed with the patient. Cardiology was consulted. 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 lower arm Last Myocardial Infarction Date:: unknown History of Any Multi-Drug Resistant Organisms: ESBL Date of last positivie culture/infection: 05/07/24 MDRO Source:: urine Past Surgical History: Appendectomy, Bariatric Surgery, Cholecystectomy, Hysterectomy, Joint Replacement, Tonsillectomy Additional Past Surgical History / Comment(s): gastric bypass, surgery after fall -fx rt leg and foot, kashif knee replacement, kashif cataracts, surgery x 2 or "brain bleed", fistula for dialysis, colonoscopy Past Anesthesia/Blood Transfusion Reactions: No Reported Reaction, Family History of Problems w/ Anesthesia Additional Past Anesthesia/Blood Transfusion Reaction / Comment(s): MOTHER PONV Smoking Status: Former smoker - Past Family History Mother Family Medical History: Cancer Father Family Medical History: Diabetes Mellitus, Hypertension Sister(s) Family Medical History: Cancer Medications and Allergies Home Medications Medication Instructions Recorded Confirmed Type Calcium Acetate 1,334 mg PO TID-W/MEALS 12/22/19 06/25/24 History oxyCODONE-APAP 10-325MG [Percocet 1 tab PO TID 02/18/22 06/25/24 History 10-325 mg] Albuterol Inhaler [Ventolin Hfa 2 puff INHALATION RT-QID PRN 06/15/22 06/25/24 History Inhaler] Acetaminophen Tab [Tylenol] 650 mg PO Q4HR PRN tab 01/22/23 06/25/24 Rx Folic Acid/Vit B Complex and C 0.8 mg PO HS 08/27/23 06/25/24 History [Nephro-Karla Tablet] Lidocaine-Prilocaine Cream [Emla 1 applic TOPICAL MOWEFR PRN 08/27/23 06/25/24 H istory Cream 2.5%/2.5%] Ipratropium-Albuterol Nebulize 3 ml INHALATION RT-TID PRN 05/06/24 06/25/24 History [Duoneb 0.5 mg-3 mg/3 ml Soln] Vitamin B Complex 1 cap PO HS 05/06/24 06/25/24 History Metoprolol Succinate (ER) [Toprol 12.5 mg PO HS PRN 06/06/24 06/25/24 History XL] Midodrine [ProAmatine] 2.5 mg PO AC-BID #60 tablet 06/26/24 Rx Allergies Allergy/AdvReac Type Severity Reaction Status Date / Time cefuroxime Allergy Rash/Hives Verified 06/25/24 21:03 naproxen [From Naprosyn] Allergy Dyspnea Verified 06/25/24 21:03 blood thinner Allergy "brain Uncoded 06/25/24 21:03 bleed" Physical Exam Vitals: Vital Signs Temp Pulse Resp BP Pulse Ox 06/26/24 10:30 64 16 90/50 96 06/26/24 08:05 87 16 117/55 98 06/26/24 07:00 80 16 112/49 06/26/24 06:00 88 16 139/71 93 L 06/26/24 04:30 85 16 99/53 93 L 06/26/24 03:37 82 16 92/53 94 L 06/26/24 02:48 17 92 L 06/26/24 01:00 110/52 06/26/24 00:00 72 16 85/45 06/25/24 23:00 71 16 109/50 95 06/25/24 22:01 75 14 111/48 93 L 06/25/24 21:40 62 18 88/44 94 L 06/25/24 21:13 93 16 100 06/25/24 19:15 80 16 110/56 96 06/25/24 17:28 69 18 100/61 95 06/25/24 16:51 99.1 F 78 18 98/65 95 Intake and Output 06/25/24 06/26/24 06/26/24 22:59 06:59 14:59 Other: Weight 102.058 kg Results CBC & Chem 7: 06/25/24 17:09 06/25/24 17:09 Labs: Abnormal Lab Results - Last 24 Hours (Table) 06/25/24 06/25/24 06/25/24 Range/Units 17:09 17:09 17:09 RBC 3.02 L (4.10-5.20) 10*6/uL Hgb 10.2 L (12.0-15.0) g/dL Hct 31.1 L (37.2-46.3) % MCV 103.0 H (80.0-97.0) fL MCH 33.8 H (27.0-32.0) pg MPV 9.2 L (9.5-12.2) fL Sodium 135 L (137-145) mmol/L Potassium 3.4 L (3.5-5.1) mmol/L Chloride 95 L (98-107) mmol/L BUN 19 H (7-17) mg/dL Creatinine 2.53 H (0.52-1.04) mg/dL Glucose 152 H (74-99) mg/dL Plasma Lactic Acid Tulio 2.7 H* (0.7-2.0) mmol/L AST 39 H (14-36) U/L Alkaline Phosphatase 254 H (38-126) U/L
--- NOTE | 2024-06-26 21:39 | P.DS ---
Providers Date of admission: 06/25/24 21:15 Expected date of discharge: 06/26/24 Attending physician: Duncan Panchal Consults: 06/25/24 21:03 Consult Physician Routine Consulting Provider: Holly Tran Consult Reason/Comments: esrd Do you want consulting provider notified?: Yes 06/25/24 21:15 Consult Physician Routine Consulting Provider: Sekou Perez Consult Reason/Comments: syncope Do you want consulting provider notified?: Yes Primary care physician: Gautam [facility] Course: Chief Complaint: Syncope pleasant [address] Rizvi. Chronic stable medical conditions include hypertension, hyperlipidemia, depression, anxiety, osteoarthritis. End- stage kidney disease on hemodialysis. Patient gets hemodialysis Sunday and Sunday. Yesterday when she finished her dialysis her blood pressure was running low around 90 systolic. She went to girlfriends. She nearly passed out twice. Has right upper extremity fistula. Appetite is fair. No chest pain palpitation. Her blood pressure does fluctuate. Has midodrine ordered as needed. Patient also been diagnosed with bladder cancer. Locally by Dr. Joshua. Needs bladder surgery and is pending referral to urologist in [place]. Otherwise feels fair. Patient was found to be orthostatic. Midodrine 2.5 twice daily was added. JOSÉ MIGUEL stockings. Told to take Lopressor 12.5 as needed if blood pressure goes higher. Cardiology is arranging for event monitor. Follow-up with the front window cashier. Past medical history to include: Hypertension, hyperlipidemia, depression, anxiety, osteoarthritis, end-stage kidney disease on hemodialysis, uterine cancer, bariatric surgery, depression, osteoarthritis. Bladder cancer Social history: Quit smoking over 30 years ago. Lives alone. Does use a cane and a walker Physical examination: VITAL SIGNS: 98.6, 87, 18, sitting 116/90. Standing 144 x 6996% room air GENERAL: BMI 39.9, reclining in bed EYES: Pupils equal. Conjunctiva normal. HEENT: External appearance of nose and ears normal, oral cavity grossly normal. NECK: JVD not raised; masses not palpable. HEART: First and second heart sounds are normal; some edema. LUNGS: Respiratory rate normal; decreased breath sound ABDOMEN: Soft, nontender, liver spleen not palpable, no masses palpable. PSYCH: Alert and oriented x3; mood and affect anxiousl. MUSCULOSKELETAL:No Clubbing/cyanosis;muscles-grossly intact. OA NEUROLOGICAL: Cranial nerves grossly intact. Power sensation grossly intact. INVESTIGATIONS, reviewed in the clinical context: Carotid Doppler: No significant stenosis June 25, 2024: White count 8.8 hemoglobin 10.2 platelets 224 sodium 135 potassium 3.4 BUN 19 creatinine 2.53 EKG tracing personally reviewed by me-normal sinus rhythm. Poor R wave progression Chest x-ray film personally reviewed by me-some elevation of right diaphragm Assessment and plan: -Episode of patient having syncope. In the setting of hypotension and orthostatic. Patient left on dialysis with a blood pressure of 90. Has noted fluctuating blood pressure. - Orthostatic hypotension Start midodrine 2.5 AC twice daily. Thigh-high bilateral stockings -COPD in a prior smoker Inhaler as needed - Bladder cancer diagnosed locally by Dr. Joshua. Per patient Dr. Joshua arranging for patient to have surgery down in [facility]. -Anemia of chronic kidney disease -End-stage kidney disease on hemodialysis. From diabetic nephropathy Days Sunday -Essential hypertension, Told the patient to have the blood pressure running a bit on the higher side. She has been off blood pressure medications. Will use Toprol-XL as needed. 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 lower arm Last Myocardial Infarction Date:: unknown History of Any Multi-Drug Resistant Organisms: ESBL Date of last positivie culture/infection: 05/07/24 MDRO Source:: urine Past Surgical History: Appendectomy, Bariatric Surgery, Cholecystectomy, Hysterectomy, Joint Replacement, Tonsillectomy Additional Past Surgical History / Comment(s): gastric bypass, surgery after fall -fx rt leg and foot, kashif knee replacement, kashif cataracts, surgery x 2 or "brain bleed", fistula for dialysis, colonoscopy Past Anesthesia/Blood Transfusion Reactions: No Reported Reaction, Family History of Problems w/ Anesthesia Additional Past Anesthesia/Blood Transfusion Reaction / Comment(s): MOTHER PONV Smoking Status: Former smoker Plan - Discharge Summary New Discharge Prescriptions: New Midodrine [ProAmatine] 2.5 mg PO AC-BID #60 tablet Continue Calcium Acetate 1,334 mg PO TID-W/MEALS oxyCODONE-APAP 10-325MG [Percocet 10-325 mg] 1 tab PO TID Albuterol Inhaler [Ventolin Hfa Inhaler] 2 puff INHALATION RT-QID PRN PRN Reason: Shortness Of Breath Folic Acid/Vit B Complex and C [Nephro-Karla Tablet] 0.8 mg PO HS Lidocaine-Prilocaine Cream [Emla Cream 2.5%/2.5%] 1 applic TOPICAL MOWEFR PRN PRN Reason: AVF access Acetaminophen Tab [Tylenol] 650 mg PO Q4HR PRN tab PRN Reason: Fever>101 Vitamin B Complex 1 cap PO HS Ipratropium-Albuterol Nebulize [Duoneb 0.5 mg-3 mg/3 ml Soln] 3 ml INHALATION RT-TID PRN PRN Reason: Shortness Of Breath Metoprolol Succinate (ER) [Toprol XL] 12.5 mg PO HS PRN PRN Reason: SBP>130 Discontinued Midodrine [ProAmatine] 5 mg PO DIRECTED Discharge Medication List Calcium Acetate 1,334 mg PO TID-W/MEALS 12/22/19 [History] oxyCODONE-APAP 10-325MG [Percocet 10-325 mg] 1 tab PO TID 02/18/22 [History] Albuterol Inhaler [Ventolin Hfa Inhaler] 2 puff INHALATION RT-QID PRN 06/15/22 [History] Acetaminophen Tab [Tylenol] 650 mg PO Q4HR PRN tab 01/22/23 [Rx] Folic Acid/Vit B Complex and C [Nephro-Karla Tablet] 0.8 mg PO HS 08/27/23 [History] Lidocaine-Prilocaine Cream [Emla Cream 2.5%/2.5%] 1 applic TOPICAL MOWEFR PRN 08/27/23 [History] Ipratropium-Albuterol Nebulize [Duoneb 0.5 mg-3 mg/3 ml Soln] 3 ml INHALATION RT-TID PRN 05/06/24 [History] Vitamin B Complex 1 cap PO HS 05/06/24 [History] Metoprolol Succinate (ER) [Toprol XL] 12.5 mg PO HS PRN 06/06/24 [History] Midodrine [ProAmatine] 2.5 mg PO AC-BID #60 tablet 06/26/24 [Rx] Follow up Appointment(s)/Referral(s): Gautam Rizvi DO [Primary Care Provider] - 1 Week Yousif Salter DO [STAFF PHYSICIAN] - 3 Weeks None,Stated [REFERRING] - 1-2 days Activity/Diet/Wound Care/Special Instructions: Kashifat JOSÉ MIGUEL thigh high stockings 9 a - 9 pm Discharge Disposition: HOME SELF-CARE
== END 2024-06-26 13:37 | disposition home or self-care (01) ==
LOC: EC 16:50 → 6NMEDSUR 21:15
PROVIDERS: ADMIT Hospitalist; ATTEND Hospitalist
DX: I95.1 Orthostatic hypotension (principal); C67.9 Malignant neoplasm of bladder, unspecified; E11.22 Type 2 diabetes mellitus with diabetic chronic kidney disease; I12.0 Hypertensive chronic kidney disease with stage 5 chronic kidney disease or end stage renal disease; N18.6 End stage renal disease; D63.1 Anemia in chronic kidney disease; E66.9 Obesity, unspecified; E78.5 Hyperlipidemia, unspecified; F32.A Depression, unspecified; F41.9 Anxiety disorder, unspecified; I25.2 Old myocardial infarction; J44.89 Other specified chronic obstructive pulmonary disease; M19.91 Primary osteoarthritis, unspecified site; Z88.6 Allergy status to analgesic agent; Z88.1 Allergy status to other antibiotic agents; Z88.8 Allergy status to other drugs, medicaments and biological substances; Z87.891 Personal history of nicotine dependence; Z66 Do not resuscitate; Z68.35 Body mass index [BMI] 35.0-35.9, adult; Z79.899 Other long term (current) drug therapy; Z85.42 Personal history of malignant neoplasm of other parts of uterus; Z86.73 Personal history of transient ischemic attack (TIA), and cerebral infarction without residual deficits; Z99.2 Dependence on renal dialysis; Z79.891 Long term (current) use of opiate analgesic
CPT/HCPCS: 96360; 99285; 36415; 93005; 93270; 80053; 83605; 83735; 84484; 85025; 85610; 85730; 71045; 93880; 72125; 70450; G0378 ×2

== ENCOUNTER → 2024-07-03 | Outpatient (CLI) | payer MEDICARE, BC, OTHER ==
--- NOTE | 2024-07-03 15:42 | CT ---
EXAMINATION TYPE: CT abdomen pelvis wo con DATE OF EXAM: 07/03/2024 COMPARISON: 06/16/2020 CLINICAL INDICATION: Female, 78 years old with history of C67.9 bladder ca; [facility], Bladder cancer TECHNIQUE: CT scan of the abdomen and pelvis is performed without oral or IV contrast. CT DLP: 1191.[address] CTDI: mGy Automated exposure control for dose reduction was used. FINDINGS: Within the limitations of a non-contrast study, the following observations are made. The lungs are clear. There are postsurgical changes involving the stomach. There is surgical absence of the gallbladder. There is stable marked intra and extrahepatic biliary d uctal dilatation. There is no organomegaly of the liver, pancreas, spleen or adrenal glands. There are no renal calcifications or hydronephrosis. There is moderate renal atrophy and scattered re nal vascular calcifications. The caliber of the abdominal aorta is normal and there is no retroperitoneal adenopathy or hemorrhage . The bowel loops are normal in caliber is no evidence of obstruction. No inflammatory changes are iden tified in the mesentery and there is no free intraperitoneal air or fluid. There are anastomotic sutu res in the small bowel in the left upper quadrant of the abdomen. The left upper quadrant mesenteric mass has decreased in the interval from 3 cm to 1.7 cm and contains calcifications, indicating benign etiology. There is no pelvic mass, free fluid, abscess or adenopathy. There is mild diverticulosis of the colon without CT evidence of diverticulitis. There is surgical absence of the uterus. The osseous structures and soft tissues are unremarkable. There is multilevel moderate to marked dege nerative disc disease in the lower thoracic and lumbar spine. IMPRESSION: 1. Stable marked intra and extrahepatic biliary ductal dilatation. 2. Reduction in the left upper quadrant mesenteric mass from 3 cm to 1.7 cm solid calcification sugge sting a benign etiology. 3. Anastomotic sutures in the small bowel in the left upper quadrant of the abdomen 4. No acute changes within the abdomen or pelvis. 5. Surgical absence of the gallbladder and uterus. [facility], , 07/03/2024 3:40 PM
== END | disposition home or self-care (01) ==
LOC: RADCTMAIN 09:57
PROVIDERS: ATTEND Urology
DX: C67.9 Malignant neoplasm of bladder, unspecified (principal); K83.8 Other specified diseases of biliary tract; Z90.49 Acquired absence of other specified parts of digestive tract
CPT/HCPCS: 74176

== ENCOUNTER 2024-08-30 13:01 | Emergency (ER) | payer MEDICARE, BC, OTHER ==
[2024-08-30 13:10] VITALS: RESP 18
--- NOTE | 2024-08-30 13:31 | ED ---
General Adult HPI - General Chief complaint: Back Pain/Injury Stated complaint: Back pain Time Seen by Provider: 08/30/24 13:05 Source: patient, EMS Mode of arrival: EMS Limitations: no limitations - History of Present Illness Initial comments: Dictation was produced using [employer] dictation software. please excuse any grammatical, word or spelling errors. Chief Complaint: 79-year-old female presents with back pain History of Present Illness: Patient 79-year-old female presents emergency department back pain patient states she has chronic back pain. Patient allegedly slid out of her chair landing on her back. EMS was called for lift assist. Patient states that her pain is worse than her usual. States that it hurts whenever she lays flat or sits up. Denies any weakness that is worse in her legs. Denies any fever chills or night sweats. Denies any head trauma. Does not take any anticoagulation medications. The ROS documented in this emergency department record has been reviewed and confirmed by me. Those systems with pertinent positive or negative responses have been documented in the HPI. All other systems are other negative and/or noncontributory. - Related Data Home Medications Medication Instructions Recorded Confirmed Calcium Acetate 1,334 mg PO TID-W/MEALS 12/22/19 08/12/24 oxyCODONE-APAP 10-325MG [Percocet 1 tab PO TID PRN 02/18/22 08/12/24 10-325 mg] Albuterol Inhaler [Ventolin Hfa 2 puff INHALATION RT-QID PRN 06/15/22 08/12/24 Inhaler] Folic Acid/Vit B Complex and C 0.8 mg PO HS 08/27/23 08/12/24 [Nephro-Karla Tablet] Lidocaine-Prilocaine Cream [Emla 1 applic TOPICAL MOWEFR PRN 08/27/23 08/12/24 Cream 2.5%/2.5%] Ipratropium-Albuterol Nebulize 3 ml INHALATION RT-TID PRN 05/06/24 08/12/24 [Duoneb 0.5 mg-3 mg/3 ml Soln] Metoprolol Succinate (ER) [Toprol 12.5 mg PO HS PRN 06/06/24 08/12/24 XL] Furosemide [Lasix] 80 mg PO DAILY PRN 08/12/24 08/12/24 Midodrine [ProAmatine] 2.5 - 5 mg PO AC-BID 08/12/24 08/21/24 Ondansetron [Ondansetron ODT] 4 mg PO Q8H PRN 08/12/24 08/12/24 lisinopriL [Prinivil] 20 mg PO DAILY PRN 08/12/24 08/12/24 Previous Rx's Medication Instructions Recorded Acetaminophen Tab [Tylenol] 650 mg PO Q4HR PRN tab 01/22/23 Allergies Allergy/AdvReac Type Severity Reaction Status Date / Time cefuroxime Allergy Rash/Hives Verified 08/30/24 13:10 naproxen [From Naprosyn] Allergy Dyspnea Verified 08/30/24 13:10 blood thinner Allergy "brain Uncoded 08/30/24 13:10 bleed" Review of Systems ROS Statement: Those systems with pertinent positive or pertinent negative responses have been documented in the HPI. ROS Other: All systems not noted in ROS Statement are negative. 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 lower arm Last Myocardial Infarction Date:: unknown History of Any Multi-Drug Resistant Organisms: ESBL Date of last positivie culture/infection: 05/07/24 MDRO Source:: urine Past Surgical History: Appendectomy, Bariatric Surgery, Cholecystectomy, Hysterectomy, Joint Replacement, Tonsillectomy Additional Past Surgical History / Comment(s): gastric bypass, surgery after fall -fx rt leg and foot, kashif knee replacement, kashif cataracts, surgery x 2 or "brain bleed", fistula for dialysis, colonoscopy Past Anesthesia/Blood Transfusion Reactions: No Reported Reaction, Family History of Problems w/ Anesthesia Additional Past Anesthesia/Blood Transfusion Reaction / Comment(s): MOTHER PONV Past Psychological History: No Psychological Hx Reported Smoking Status: Former smoker - Past Family History Mother Family Medical History: Cancer Father Family Medical History: Diabetes Mellitus, Hypertension Sister(s) Family Medical History: Cancer General Exam - General Exam Comments Initial Comments: PHYSICAL EXAM: General Impression: Alert and oriented x3, not in acute distress HEENT: Normocephalic atraumatic, extra-ocular movements intact, pupils equal and reactive to light bilaterally, mucous membranes moist. Cardiovascular: Heart regular rate and rhythm Chest: Able to complete full sentences, no retractions, no tachypnea Abdomen: abdomen soft, non-tender, non-distended, no organomegaly Musculoskeletal: Pulses present and equal in all extremities, no peripheral edema Motor: no focal deficits noted Neurological: CN II-XII grossly intact, no focal motor or sensory deficits noted Skin: Intact with no visualized rashes Psych: Normal affect and mood Limitations: no limitations Course Vital Signs 08/30/24 08/30/24 13:05 14:01 Temperature 98.6 F Pulse Rate 90 74 Respiratory 18 18 Rate Blood Pressure 126/62 109/60 O2 Sat by Pulse 92 L 98 Oximetry EKG Findings - EKG Comments: EKG Findings:: My EKG interpretation: Ventricular rate 76, sinus rhythm, TN 165, QRS 100, QTc 413. No TN prolongation, no QTC prolongation, no ST or T-wave changes noted. Overall, this EKG is unremarkable Medical Decision Making - Medical Decision Making Was pt. sent in by a medical professional or institution (EMMANUEL Burt, MASTER TAX ADVISOR, urgent care, hospital, or [place] health care facility...) When possible be specific @ -No Did you speak to anyone other than the patient for history (EMS, parent, family, police, friend...)? What history was obtained from this source @ -No Did you review nursing and triage notes (agree or disagree)? Why? @ -I reviewed and agree with nursing and triage notes Were old charts reviewed (outside hosp., previous admission, EMS record, old EKG, old radiological studies, urgent care reports/EKG's, [place] health care facility records)? Report findings @ -No old charts were reviewed Differential Diagnosis (chest pain, altered mental status, abdominal pain women, abdominal pain men, vaginal bleeding, musculoskeletal, weakness, fever, dyspnea, syncope, headache, dizziness, GI bleed, back pain, seizure, CVA, palpatations, mental health)? @ -Differential Back Pain: Strain, zoster, cauda equina syndrome, epidural abscess, vertebral osteomyelitis, discitis, fracture, subluxation, disc herniation, DJD, spinal stenosis, dissection, AAA, pancreatitis, peptic ulcer disease, pyelonephritis, k idney stone, this is not meant to be an all-inclusive list. EKG interpreted by me (3pts min.). @ -None done X-rays interpreted by me (1pt min.). @ -None done CT interpreted by me (1pt min.). @ -CT lumbar spine shows no acute processes U/S interpreted by me (1pt. min.). @ -None done What testing was considered but not performed or refused? (CT, X-rays, U/S, labs)? Why? @ -None What meds were considered but not given or refused? Why? @ -None Was smoking cessation discussed for >3mins.? @ -No Were there social determinants of health that impacted care today? How? (Homelessness, low income, unemployed, alcoholism, drug addiction, transportation, low edu. Level, literacy, decrease access to med. care, intermediate, rehab)? @ -No Was there de-escalation of care discussed even if they declined (Discuss DNR or withdrawal of care, Hospice)? DNR status @ -No What co-morbidities impacted this encounter? (DM, HTN, Smoking, COPD, CAD, Cancer, CVA, ARF, Chemo, Hep., AIDS, mental health diagnosis, sleep apnea, morbid obesity)? @ -Back arthritis Was patient admitted / discharged? Hospital course, mention meds given and route, prescriptions, significant lab abnormalities, going to OR and other p ertinent info. @ -79-year-old female presents with back strain. Vital signs stable. She has significant comorbidities and CT of the lumbar spine was ordered. CT unremarkable. Laboratory evaluation within acceptable limits. Clinical presentation consistent with back strain. Patient discharged Did you discuss the management of the patient with other professionals (professionals i.e. , PA, MASTER TAX ADVISOR, lab, RT, psych nurse, social work job titles, sports lawyer, teacher, facilities officer, case operator)? Give summary @ -No Was critical care preformed (if so, how long)? @ -No Undiagnosed new problem with uncertain prognosis? @ -No Drug Therapy requiring intensive monitoring for toxicity (Heparin, Nitro, Insuli n, Cardizem)? @ -No Were any procedures done? @ -No Diagnosis/symptom? Acute, or Chronic, or Acute on Chronic? Uncomplicated (without systemic symptoms) or Complicated (systemic symptoms)? @ -Back strain Side effects of treatment? @ -No Exacerbation, Progression, or Severe Exacerbation? @ -No Poses a threat to life or bodily function? How? (Chest pain, USA, MD, pneumonia, PE, COPD, DKA, ARF, appy, cholecystitis, CVA, Diverticulitis, Homicidal, Suicidal, threat to staff... and all critical care pts) @ -No - Lab Data Result diagrams: 08/30/24 14:00 08/30/24 14:00 Lab Results 08/30/24 08/30/24 Range/Units 14:00 14:00 WBC 7.39 (4.50-10.00) 10*3/uL RBC 2.98 L (4.10-5.20) 10*6/uL Hgb 9.7 L (12.0-15.0) g/dL Hct 30.9 L (37.2-46.3) % MCV 103.7 H (80.0-97.0) fL MCH 32.6 H (27.0-32.0) pg MCHC 31.4 L (32.0-37.0) g/dL Plt Count 245 (140-440) 10*3/uL MPV 8.9 L (9.5-12.2) fL Immature Gran % (Auto) 0.7 % Neutrophils % 78.2 % Lymphocytes % 12.4 % Monocytes % 7.6 % Eosinophils % 0.7 % Basophils % 0.4 % Immature Gran # 0.05 H (0.00-0.04) 10*3/uL Neutrophils # 5.78 (1.80-7.70) 10*3/uL Lymphocytes # 0.92 (0.90-5.00) 10*3/uL Monocytes # 0.56 (0.20-1.00) 10*3/uL Eosinophils # 0.05 (0.04-0.35) 10*3/uL Basophils # 0.03 (0.00-0.10) 10*3/uL Sodium 136 L (137-145) mmol/L Potassium 3.9 (3.5-5.1) mmol/L Chloride 96 L (98-107) mmol/L Carbon Dioxide 32 H (22-30) mmol/L Anion Gap 8 mmol/L BUN 22 H (7-17) mg/dL Creatinine 3.65 H (0.52-1.04) mg/dL Est GFR (CKD-EPI)AfAm 13 (>60 ml/min/1.73 sqM) Est GFR (CKD-EPI)NonAf 11 (>60 ml/min/1.73 sqM) Glucose 110 H (74-99) mg/dL Calcium 8.6 (8.4-10.2) mg/dL Disposition Clinical Impression: Strain of lumbar region Disposition: HOME SELF-CARE Condition: Good Instructions (If sedation given, give patient instructions): Acute Low Back Pain (ED) Is patient prescribed a controlled substance at d/c from ED?: No Referrals: Jonn Baugh DO [Doctor of Osteopathic Medicine] - 1-2 days Time of Disposition: 15:24
[2024-08-30] MEDS: SODIUM CHLORIDE 0.9% 500 ML 500 ML IV STA (14:03)
[2024-08-30] MEDS: MORPHINE SULFATE 4 MG/ML SYRINGE IVP PRN (14:04)
[2024-08-30 14:12] LABS: Basophils # (A) 0.03 10*3/uL (0.00-0.10); Basophils % (A) 0.4 %; Eosinophils # (A) 0.05 10*3/uL (0.04-0.35); Eosinophils % (A) 0.7 %; HCT 30.9 % (37.2-46.3); HGB 9.7 g/dL (12.0-15.0); Lymphocytes # (A) 0.92 10*3/uL (0.90-5.00); Lymphocytes % (A) 12.4 %; MCH 32.6 pg (27.0-32.0); MCHC 31.4 g/dL (32.0-37.0); MCV 103.7 fL (80.0-97.0); Monocytes # (A) 0.56 10*3/uL (0.20-1.00); Monocytes % (A) 7.6 %; Neutrophils # (A) 5.78 10*3/uL (1.80-7.70); Neutrophils % (A) 78.2 %; Platelet Count 245 10*3/uL (140-440); RBC 2.98 10*6/uL (4.10-5.20); RDW 14.7 % (11.5-14.5); WBC 7.39 10*3/uL (4.50-10.00)
[2024-08-30 14:23] LABS: African American GFR (CKD) 13 (>60 ml/min/1.73 sqM); Anion Gap 8 mmol/L; Blood Urea Nitrogen 22 mg/dL (7-17); Calcium 8.6 mg/dL (8.4-10.2); Carbon Dioxide 32 mmol/L (22-30); Chloride 96 mmol/L (98-107); Glucose 110 mg/dL (74-99); Non-African American GFR(CKD) 11 (>60 ml/min/1.73 sqM); Potassium 3.9 mmol/L (3.5-5.1); Sodium 136 mmol/L (137-145)
--- NOTE | 2024-08-30 15:08 | CT ---
EXAMINATION TYPE: CT lumbar spine wo con DATE OF EXAM: 08/30/2024 2:46 PM COMPARISON: CT abdomen/pelvis 07/03/2024. CLINICAL INDICATION: Female, 79 years old with history of fall, back pain; PHH, Fall, lower back pain TECHNIQUE: Multiple axial images were obtained from the midportion of T11 through the sacroiliac dwayne nts. Soft tissue and bone windows in coronal and sagittal planes were obtained and reviewed. 3-D ref ormats of the bones were created on a separate workstation and submitted for review. CT DLP: 1923.6 mGycm, Automated exposure control for dose reduction was used. FINDINGS: Subtle noted colonic diverticulosis. Simple appearing cyst in the right kidney. Previous cholecystect belen. Bilateral renal parenchymal atrophy. Splenomegaly partially visualized. Likely early cirrhotic l iver morphology. Alignment: There are 5 lumbar type vertebral bodies within normal alignment. Multilevel intervertebra l disc space loss and associated endplate degenerative changes. Mild multilevel anterior osteophyte f ormation. Minimal anterolisthesis of L4 on L5. Bone: No evidence of fracture is identified. Osseous structures are demineralized. Discs: T12-L1: Facet joint arthropathy and mild circumferential disc bulging minimally effacing the ventral thecal sac. No significant spinal canal stenosis. No significant neural foraminal narrowing. L1-L2: No spinal canal or neural foraminal stenosis is identified. Mild facet arthropathy. L2-L3: Circumferential disc bulging eccentric to the left causes ventral thecal sac effacement withou t significant spinal canal stenosis. Neuroforamen grossly patent. L3-L4: Facet arthropathy and mild ligamentum flavum hypertrophy. Circumferential disc bulging minimal ly effaces the ventral thecal sac. Mild to moderate left and mild right neural foraminal narrowing. D isc material contacts the exiting left L3 nerve root. L4-L5: Minimal circumferential disc bulging and facet arthropathy without significant spinal canal st enosis or neural foraminal narrowing. L5-S1: Left paracentral focal disc protrusion with superimposed circumferential disc bulging effacing the ventral thecal sac examination with facet arthropathy causes moderate to severe bilateral neural foraminal narrowing. No high-grade spinal canal stenosis. Other: None IMPRESSION: 1. No acute fracture or traumatic subluxation of the lumbosacral spine. 2. Multilevel lumbosacral spine degenerative changes as above. [facility], , 08/30/2024 3:05 PM
[2024-08-30 16:21] VITALS: BP 131/63; PULSE 82; TEMP 98.2
== END 2024-08-30 16:20 | disposition home or self-care (01) ==
LOC: EC 13:01
DX: S39.012A Strain of muscle, fascia and tendon of lower back, initial encounter (principal); M47.816 Spondylosis without myelopathy or radiculopathy, lumbar region; G89.29 Other chronic pain; Z87.891 Personal history of nicotine dependence; Z88.1 Allergy status to other antibiotic agents; Z88.6 Allergy status to analgesic agent; Z88.8 Allergy status to other drugs, medicaments and biological substances; W07.XXXA Fall from chair, initial encounter
CPT/HCPCS: 36415; 93005; 80048; 85025; 72131; 99284; 96374; 96361; J2270

== ENCOUNTER 2024-08-31 09:10 | Inpatient (IN) | payer MEDICARE, BC, OTHER ==
[2024-08-31 10:17] LABS: Basophils # (A) 0.02 10*3/uL (0.00-0.10); Basophils % (A) 0.3 %; Eosinophils # (A) 0.00 10*3/uL (0.04-0.35); Eosinophils % (A) 0.0 %; HCT 31.2 % (37.2-46.3); HGB 9.9 g/dL (12.0-15.0); Lymphocytes # (A) 1.03 10*3/uL (0.90-5.00); Lymphocytes % (A) 12.9 %; MCH 33.1 pg (27.0-32.0); MCHC 31.7 g/dL (32.0-37.0); MCV 104.3 fL (80.0-97.0); Monocytes # (A) 0.45 10*3/uL (0.20-1.00); Monocytes % (A) 5.6 %; Neutrophils # (A) 6.39 10*3/uL (1.80-7.70); Neutrophils % (A) 80.2 %; Platelet Count 266 10*3/uL (140-440); RBC 2.99 10*6/uL (4.10-5.20); RDW 14.6 % (11.5-14.5); WBC 7.97 10*3/uL (4.50-10.00)
[2024-08-31 10:22] LABS: Glucose,Whole Blood 91 mg/dL (70-110)
[2024-08-31 10:23] LABS: ALT 12 U/L (4-34); African American GFR (CKD) 10 (>60 ml/min/1.73 sqM); Albumin 2.9 g/dL (3.5-5.0); Anion Gap 11 mmol/L; Blood Urea Nitrogen 29 mg/dL (7-17); Calcium 8.7 mg/dL (8.4-10.2); Carbon Dioxide 28 mmol/L (22-30); Chloride 97 mmol/L (98-107); Glucose 104 mg/dL (74-99); Non-African American GFR(CKD) 9 (>60 ml/min/1.73 sqM); Sodium 136 mmol/L (137-145); Total Protein 5.7 g/dL (6.3-8.2)
[2024-08-31 10:24] LABS: AST 27 U/L (14-36); Alkaline Phosphatase 171 U/L (38-126); Lactic Acid, Venous 1.4 mmol/L (0.7-2.0); Potassium 4.6 mmol/L (3.5-5.1)
[2024-08-31 10:27] LABS: VBG HCO3 30.0 mmol/L (24-28); VBG PCO2 52.0 mmHg (37-51); VBG PH 7.38 (7.31-7.41)
[2024-08-31 10:28] LABS: INR 0.9 (<1.2); Partial Thromboplastin Time 22.7 sec (22.0-30.0); Prothrombin Time 10.2 sec (10.0-12.5)
[2024-08-31] MEDS: SODIUM CHLORIDE 0.9% 1,000 ML IV ONE (10:29)
--- NOTE | 2024-08-31 11:01 | XR ---
EXAMINATION TYPE: XR pelvis AP view DATE OF EXAM: 08/31/2024 10:39 AM INDICATION: Patient age:Female; 79 years old; Reason for study: fall; PHH. pain COMPARISON: CT abdomen and pelvis 07/03/2024 TECHNIQUE: The pelvis was examined in a single projection. FINDINGS: Cortical irregularity involving the right superior pubic ramus. There is no soft tissue abn ormality. Multiple pelvic phleboliths. Multilevel degenerative changes of the lower spine. Vascular s clerosis. Surgical clips overlie the right hemisacrum. IMPRESSION: Cortical irregularity involving the right superior pubic ramus suspicious for acute nondisplaced frac ture. This can be further evaluated with CT pelvis as clinically indicated. [facility], , 08/31/2024 10:59 AM
--- NOTE | 2024-08-31 11:03 | XR ---
EXAMINATION TYPE: XR chest 2V DATE OF EXAM: 08/31/2024 10:39 AM COMPARISON: Chest radiographs from 06/25/2024 TECHNIQUE: XR chest 2V Frontal and lateral views of the chest. CLINICAL INDICATION:Female, 79 years old with history of altered mental status; FINDINGS: Lungs/Pleura: There is no evidence of pleural effusion, focal consolidation, or pneumothorax. Chroni c elevation of the right hemidiaphragm. Pulmonary vascularity: Unremarkable. Heart/mediastinum: Cardiomediastinal silhouette is prominent in size. Atherosclerotic calcifications are seen in the aorta. Musculoskeletal: No acute osseous pathology. Multilevel degenerative changes of the thoracic spine. IMPRESSION: No acute cardiopulmonary disease/process. [facility], , 08/31/2024 11:00 AM
[2024-08-31 11:08] LABS: RSV Not Detected (Not Detectd)
--- NOTE | 2024-08-31 11:26 | CT ---
EXAMINATION TYPE: CT brain wo con CT DLP: 1156.7 mGycm, Automated exposure control for dose reduction was used. DATE OF EXAM: 08/31/2024 11:15 AM COMPARISON: CT brain C-spine 06/25/2024 CLINICAL INDICATION:Female, 79 years old with history of Altered mental status, AMS. TECHNIQUE: Brain: Multiple axial CT images of the brain were obtained without IV contrast. . Coronal and sagitta l reformats reviewed. FINDINGS: Brain: Extra-axial spaces: No abnormal extra-axial fluid collections. Ventricular system: Within normal limits Cerebral parenchyma: Cerebral atrophy. No acute intraparenchymal hemorrhage or mass effect. The das -white junction is well differentiated. Scattered hypoattenuating areas are seen within the periventr icular and subcortical white matter. Small region of encephalomalacia within the right parietal lobe from prior injury. Nonspecific left basal ganglia calcification. Partial empty sella morphology. Cerebellum: Unremarkable. Mass effect: No evidence of midline shift. Intracranial vasculature: Atherosclerotic calcifications of the intracranial vessels. Soft tissues: Normal. Calvarium/osseous structures: No depressed skull fracture. Postsurgical changes to the right skull re demonstrated. Paranasal sinuses and mastoid air cells: The mastoid air cells are clear. Near-complete opacification of the right maxillary sinus with hyperostosis. The remaining paranasal sinuses are clear. Visualized orbits: Bilateral aphakia IMPRESSION: 1. No acute intracranial process. 2. Nonspecific white matter changes, likely secondary to chronic small vessel ischemic disease. 3. Similar small region of encephalomalacia within the right parietal lobe from prior injury. 4. Chronic right maxillary sinusitis. [facility], , 08/31/2024 11:24 AM
[2024-08-31 11:29] LABS: Barbiturate Screen,Urine Not Detected (NotDetected); Benzodiazepines Screen,Urine Not Detected (NotDetected); Opiate Screen,Urine Detected (NotDetected); Oxycodone Screen, Urine Detected (NotDetected); Phencyclidine Screen,Urine Not Detected (NotDetected); Tricyclic Antidepressant,Urine Not Detected (NotDetected); Urn Cannabinoid Scrn Not Detected (NotDetected)
[2024-08-31 11:51] LABS: Bacteria,Urine Few /hpf; Bilirubin,Urine Negative (Negative); Blood,Urine Moderate (Negative); Color,Urine Colorless; Glucose,Urine (UA) Negative (Negative); Ketones,Urine Negative (Negative); Leukocyte Esterase,Urine Large (Negative); Nitrite,Urine Negative (Negative); PH, Urine 7.0 (5.0-8.0); Protein,Urine 1+ (Negative); RBC,Urine >182 /hpf (0-5); Specific Gravity,Urine 1.017 (1.001-1.035); Squamous Epithelial Cell,Urine 17 /hpf (0-4); Urobilinogen,Urine <2.0 mg/dL (<2.0); WBC,Urine >182 /hpf (0-5)
[2024-08-31] MEDS: MEROPENEM 1 GM in SODIUM CHLORIDE 0.9% 100 ML IVPB SCH (12:28)
[2024-08-31] MEDS: LACTATED RINGERS 1,000 ML IV SCH (12:28)
[2024-08-31] MEDS ORDERED: NALOXONE 0.4 MG/ML 1 ML VIAL IV PRN (12:52)
--- NOTE | 2024-08-31 12:54 | ED ---
General Adult HPI - General Chief complaint: Altered Mental Status Stated complaint: Confusion, fall Time Seen by Provider: 08/31/24 10:02 Source: patient, EMS, RN notes reviewed, old records reviewed Mode of arrival: EMS - History of Present Illness Initial comments: 79-year-old female who presents emergency department for altered mentation. Patient was found on the ground in front of her couch at home. Apparently patient was evaluated yesterday for similar complaints and ultimately discharged home after imaging was negative. Patient today was found down and is acting altered. Is confused. Unknown how she ended up on the ground. Was diagnosed with a UTI yesterday. Unknown if she initiated antibiotics. Presents for further evaluation at this time. Patient is a poor historian and cannot provide any information. - Related Data Home Medications Medication Instructions Recorded Confirmed Calcium Acetate 1,334 mg PO TID-W/MEALS 12/22/19 08/31/24 oxyCODONE-APAP 10-325MG [Percocet 1 tab PO TID PRN 02/18/22 08/31/24 10-325 mg] Albuterol Inhaler [Ventolin Hfa 2 puff INHALATION RT-QID PRN 06/15/22 08/31/24 Inhaler] Folic Acid/Vit B Complex and C 0.8 mg PO HS 08/27/23 08/31/24 [Nephro-Karla Tablet] Lidocaine-Prilocaine Cream [Emla 1 applic TOPICAL MOWEFR PRN 08/27/23 08/31/24 Cream 2.5%/2.5%] Ipratropium-Albuterol Nebulize 3 ml INHALATION RT-TID PRN 05/06/24 08/31/24 [Duoneb 0.5 mg-3 mg/3 ml Soln] Metoprolol Succinate (ER) [Toprol 12.5 mg PO HS PRN 06/06/24 08/31/24 XL] Furosemide [Lasix] 80 mg PO DAILY PRN 08/12/24 08/31/24 Midodrine [ProAmatine] 2.5 - 5 mg PO AC-BID 08/12/24 08/31/24 lisinopriL [Prinivil] 20 mg PO DAILY PRN 08/12/24 08/31/24 Ertapenem [INVanz] 1 gm IM Q24H 08/31/24 08/31/24 Ondansetron [Zofran] 4 mg PO Q8H PRN 08/31/24 08/31/24 Previous Rx's Medication Instructions Recorded Acetaminophen Tab [Tylenol] 650 mg PO Q4HR PRN tab 01/22/23 Allergies Allergy/AdvReac Type Severity Reaction Status Date / Time cefuroxime Allergy Rash/Hives Verified 08/31/24 14:07 naproxen [From Naprosyn] Allergy Dyspnea Verified 08/31/24 14:07 blood thinner AdvReac "brain Uncoded 08/31/24 14:07 bleed" Review of Systems ROS Statement: Those systems with pertinent positive or pertinent negative responses have been documented in the HPI. ROS Other: All systems not noted in ROS Statement are negative. 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 lower arm Last Myocardial Infarction Date:: unknown History of Any Multi-Drug Resistant Organisms: ESBL Date of last positivie culture/infection: 05/07/24 MDRO Source:: urine Past Surgical History: Appendectomy, Bariatric Surgery, Cholecystectomy, Hysterectomy, Joint Replacement, Tonsillectomy Additional Past Surgical History / Comment(s): gastric bypass, surgery after fall -fx rt leg and foot, kashif knee replacement, kashif cataracts, surgery x 2 or "brain bleed", fistula for dialysis, colonoscopy Past Anesthesia/Blood Transfusion Reactions: No Reported Reaction, Family Hist ory of Problems w/ Anesthesia Additional Past Anesthesia/Blood Transfusion Reaction / Comment(s): MOTHER PONV Past Psychological History: No Psychological Hx Reported Smoking Status: Former smoker - Past Family History Mother Family Medical History: Cancer Father Family Medical History: Diabetes Mellitus, Hypertension Sister(s) Family Medical History: Cancer General Exam - General Exam Comments Initial Comments: General: Appears in no acute distress. HEAD: Normal with no signs of head trauma. Negative Butt sign. Negative raccoon eyes. EYES: PERRLA, EOMI, conjunctiva normal, no discharge. Pupils are 2 mm and equal bilaterally. ENT: Hearing grossly intact, normal oropharynx. RESPIRATORY: Clear breath sounds bilaterally. No wheezes, rales, or rhonchi. C/V: Regular rate and rhythm. S1 and S2 auscultated, no edema, peripheral pulses 2+ and intact throughout ABD: Abd is soft, nontender, nondistended EXT: Normal range of motion, no obvious deformity. Pelvis is stable. No obvious cervical, thoracic, lumbar spine tenderness to palpation. SKIN: No rashes or lesions observed on exposed skin. NEURO: Alert and oriented x 1-2. Patient does not appropriately respond but is spontaneously moving all extremities with her eyes open. No obvious focal deficits. Course Vital Signs 08/31/24 08/31/24 08/31/24 09:12 12:10 15:23 Temperature 97.4 F L 98.3 F Pulse Rate 75 78 75 Respiratory 18 18 18 Rate Blood Pressure 123/64 110/77 120/60 O2 Sat by Pulse 96 95 98 Oximetry Medical Decision Making - Medical Decision Making Was pt. sent in by a medical professional or institution (, PA, EXTERMINATION SUPERVISOR, urgent care, hospital, or [facility]...) When possible be specific @ -No Did you speak to anyone other than the patient for history (EMS, parent, family, police, friend...)? What history was obtained from this source @ -No Did you review nursing and triage notes (agree or disagree)? Why? @ -I reviewed and agree with nursing and triage notes Were old charts reviewed (outside hosp., previous admission, EMS record, old EKG, old radiological studies, urgent care reports/EKG's, [facility] records)? Report findings @ -Reviewed chart from yesterday including imaging results which showed no obvious acute traumatic injury at that time. Lumbar spine CT was obtained. Ur inalysis was not obtained yesterday. No documented evidence of patient being on an antibiotic. Differential Diagnosis (chest pain, altered mental status, abdominal pain women, abdominal pain men, vaginal bleeding, weakness, fever, dyspnea, syncope, headache, dizziness, GI bleed, back pain, seizure, CVA, palpatations, mental health, musculoskeletal)? @ -Differential Altered Mental Status: Hypoglycemia, DKA, hypercapnia, ETOH, overdose, CO poisoning, trauma, myxedema coma, HTN encephalopathy, infection, encephalitis, psychosis, intercranial hemorrhage, hepatic encephalopathy, meningitis, CVA, this is not meant to be an all-inclusive list EKG interpreted by me (3pts min.). @ -As above X-rays interpreted by me (1pt min.). @ -Chest x-ray shows no obvious acute cardiopulmonary process. Pelvis x-ray does show a cortical irregularity involving the right superior pubic ramus suspicious for possible acute nondisplaced fracture. CT will be obtained. CT interpreted by me (1pt min.). @ -CT brain shows no obvious acute intracranial process or injury. CT pelvis shows no obvious acute fracture of the pelvis. It does show a soft tissue mass near the rectum concerning for malignancy. There is also findings concerning for cystitis. U/S interpreted by me (1pt. min.). @ -None done What testing was considered but not performed or refused? (CT, X-rays, U/S, labs)? Why? @ -None What meds were considered but not given or refused? Why? @ -None Did you discuss the management of the patient with other professionals (professionals i.e. , PA, EXTERMINATION SUPERVISOR, lab, RT, psych nurse, foster care social worker, surgical nurse practitioner, teacher, activities officer, manager of case management)? Give summary @ -Spoke with Dr. Panchal who accepted the admission. Was smoking cessation discussed for >3mins.? @ -No Was critical care preformed (if so, how long)? @ -No Were there social determinants of health that impacted care today? How? (Homelessness, low income, unemployed, alcoholism, drug addiction, transportation, low edu. Level, literacy, decrease access to med. care, residential, rehab)? @ -No Was there de-escalation of care discussed even if they declined (Discuss DNR or withdrawal of care, Hospice)? DNR status @ -No What co-morbidities impacted this encounter? (DM, HTN, Smoking, COPD, CAD, Cancer, CVA, ARF, Chemo, Hep., AIDS, mental health diagnosis, sleep apnea, morbid obesity)? @ -None Was patient admitted / discharged? Hospital course, mention meds given and route, prescriptions, significant lab abnormalities, going to OR and other pertinent info. @ -Patient presents emergency department complaining of altered mentation. We will obtain altered mental status workup. Vital signs are within acceptable limits. Vital signs within acceptable limits. EKG shows no signs of acute ischemia. Laboratory studies remarkable for chronic anemia, mild KONSTANTIN on CKD with a BUN of 29 and creatinine 4.36. Urinalysis remarkable for UTI. Imaging remarkable for possible pubic rami fracture. Recommend CT but otherwise CT brain and chest x- ray unremarkable. Due to patient's history of having ESBL, started on meropenem. Urine culture sent. Blood culture sent. Mentation is somewhat improved following fluids. Will continue with IV fluids, Tylenol as needed, and obtain a CT of the pelvis. She was in agreement this plan. Patient will be admitted. I spoke with Dr. Panchal who accepted the admission. I updated the patient on the results of the CT pelvis. Patient admitted at this time. Undiagnosed new problem with uncertain prognosis? @ -No Drug Therapy requiring intensive monitoring for toxicity (Heparin, Nitro, Insulin, Cardizem)? @ -No Were any procedures done? @ -No Diagnosis/symptom? @ -Fall, altered mental status, UTI, Soft tissue mass near the rectum Acute, or Chronic, or Acute on Chronic? @ -Acute Uncomplicated (without systemic symptoms) or Complicated (systemic symptoms)? @ -Complicated Side effects of treatment? @ -No Exacerbation, Progression, or Severe Exacerbation? @ -No Poses a threat to life or bodily function? How? (Chest pain, USA, NV, pneumonia, PE, COPD, DKA, ARF, appy, cholecystitis, CVA, Diverticulitis, Homicidal, Suicidal, threat to staff... and all critical care pts) @ -Potentially, yes - Lab Data Result diagrams: 08/31/24 10:12 08/31/24 10:12 Lab Results 08/31/24 08/31/24 08/31/24 Range/Units 10:12 10:12 10:12 WBC 7.97 (4.50-10.00) 10*3/uL RBC 2.99 L (4.10-5.20) 10*6/uL Hgb 9.9 L (12.0-15.0) g/dL Hct 31.2 L (37.2-46.3) % MCV 104.3 H (80.0-97.0) fL MCH 33.1 H (27.0-32.0) pg MCHC 31.7 L (32.0-37.0) g/dL Plt Count 266 (140-440) 10*3/uL MPV 9.3 L (9.5-12.2) fL Immature Gran % (Auto) 1.0 % Neutrophils % 80.2 % Lymphocytes % 12.9 % Monocytes % 5.6 % Eosinophils % 0.0 % Basophils % 0.3 % Immature Gran # 0.08 H (0.00-0.04) 10*3/uL Neutrophils # 6.39 (1.80-7.70) 10*3/uL Lymphocytes # 1.03 (0.90-5.00) 10*3/uL Monocytes # 0.45 (0.20-1.00) 10*3/uL Eosinophils # 0.00 L (0.04-0.35) 10*3/uL Basophils # 0.02 (0.00-0.10) 10*3/uL PT 10.2 (10.0-12.5) sec INR 0.9 (<1.2) APTT 22.7 (22.0-30.0) sec VBG pH (7.31-7.41) VBG pCO2 (37-51) mmHg VBG HCO3 (24-28) mmol/L Sodium 136 L (137-145) mmol/L Potassium 4.6 (3.5-5.1) mmol/L Chloride 97 L (98-107) mmol/L Carbon Dioxide 28 (22-30) mmol/L Anion Gap 11 mmol/L BUN 29 H (7-17) mg/dL Creatinine 4.36 H (0.52-1.04) mg/dL Est GFR (CKD-EPI)AfAm 10 (>60 ml/min/1.73 sqM) Est GFR (CKD-EPI)NonAf 9 (>60 ml/min/1.73 sqM) Glucose 104 H (74-99) mg/dL POC Glucose (mg/dL) (70-110) mg/dL POC Glu Digital Music Instructor ID Plasma Lactic Acid Tulio (0.7-2.0) mmol/L Calcium 8.7 (8.4-10.2) mg/dL Total Bilirubin 0.6 (0.2-1.3) mg/dL AST 27 (14-36) U/L ALT 12 (4-34) U/L Alkaline Phosphatase 171 H (38-126) U/L Ammonia (<30) umol/L Creatine Kinase (30-135) U/L Total Protein 5.7 L (6.3-8.2) g/dL Albumin 2.9 L (3.5-5.0) g/dL Urine Color Urine Appearance (Clear) Urine pH (5.0-8.0) Ur Specific Keo (1.001-1.035) Urine Protein (Negative) Urine Glucose (UA) (Negative) Urine Ketones (Negative) Urine Blood (Negative) Urine Nitrite (Negative) Urine Bilirubin (Negative) Urine Urobilinogen (<2.0) mg/dL Ur Leukocyte Esterase (Negative) Urine RBC (0-5) /hpf Urine WBC (0-5) /hpf Urine WBC Clumps (None) /hpf Ur Squamous Epith Cells (0-4) /hpf Urine Bacteria (None) /hpf Urine Opiates Screen (NotDetected) Ur Oxycodone Screen (NotDetected) Urine Methadone Screen (NotDetected) Ur Barbiturates Screen (NotDetected) U Tricyclic Antidepress (NotDetected) Ur Phencyclidine Scrn (NotDetected) Ur Amphetamines Screen (NotDetected) U Methamphetamines Scrn (NotDetected) U Benzodiazepines Scrn (NotDetected) Urine Cocaine Screen (NotDetected) U Marijuana (THC) Screen (NotDetected) Serum Alcohol <10 mg/dL Influenza Type A (PCR) (Not Detectd) Influenza Type B (PCR) (Not Detectd) RSV (PCR) (Not Detectd) SARS-CoV-2 (PCR) (Not Detectd) 08/31/24 08/31/24 08/31/24 Range/Units 10:12 10:12 10:20 WBC (4.50-10.00) 10*3/uL RBC (4.10-5.20) 10*6/uL Hgb (12.0-15.0) g/dL Hct (37.2-46.3) % MCV (80.0-97.0) fL MCH (27.0-32.0) pg MCHC (32.0-37.0) g/dL Plt Count (140-440) 10*3/uL MPV (9.5-12.2) fL Immature Gran % (Auto) % Neutrophils % % Lymphocytes % % Monocytes % % Eosinophils % % Basophils % % Immature Gran # (0.00-0.04) 10*3/uL Neutrophils # (1.80-7.70) 10*3/uL Lymphocytes # (0.90-5.00) 10*3/uL Monocytes # (0.20-1.00) 10*3/uL Eosinophils # (0.04-0.35) 10*3/uL Basophils # (0.00-0.10) 10*3/uL PT (10.0-12.5) sec INR (<1.2) APTT (22.0-30.0) sec VBG pH (7.31-7.41) VBG pCO2 (37-51) mmHg VBG HCO3 (24-28) mmol/L Sodium (137-145) mmol/L Potassium (3.5-5.1) mmol/L Chloride (98-107) mmol/L Carbon Dioxide (22-30) mmol/L Anion Gap mmol/L BUN (7-17) mg/dL Creatinine (0.52-1.04) mg/dL Est GFR (CKD-EPI)AfAm (>60 ml/min/1.73 sqM) Est GFR (CKD-EPI)NonAf (>60 ml/min/1.73 sqM) Glucose (74-99) mg/dL POC Glucose (mg/dL) 91 (70-110) mg/dL POC Glu Digital Music Instructor ID [facility] Plasma Lactic Acid Tulio 1.4 (0.7-2.0) mmol/L Calcium (8.4-10.2) mg/dL Total Bilirubin (0.2-1.3) mg/dL AST (14-36) U/L ALT (4-34) U/L Alkaline Phosphatase (38-126) U/L Ammonia <9 (<30) umol/L Creatine Kinase 39 (30-135) U/L Total Protein (6.3-8.2) g/dL Albumin (3.5-5.0) g/dL Urine Color Urine Appearance (Clear) Urine pH (5.0-8.0) Ur Specific Keo (1.001-1.035) Urine Protein (Negative) Urine Glucose (UA) (Negative) Urine Ketones (Negative) Urine Blood (Negative) Urine Nitrite (Negative) Urine Bilirubin (Negative) Urine Urobilinogen (<2.0) mg/dL Ur Leukocyte Esterase (Negative) Urine RBC (0-5) /hpf Urine WBC (0-5) /hpf Urine WBC Clumps (None) /hpf Ur Squamous Epith Cells (0-4) /hpf Urine Bacteria (None) /hpf Urine Opiates Screen (NotDetected) Ur Oxycodone Screen (NotDetected) Urine Methadone Screen (NotDetected) Ur Barbiturates Screen (NotDetected) U Tricyclic Antidepress (NotDetected) Ur Phencyclidine Scrn (NotDetected) Ur Amphetamines Screen (NotDetected) U Methamphetamines Scrn (NotDetected) U Benzodiazepines Scrn (NotDetected) Urine Cocaine Screen (NotDetected) U Marijuana (THC) Screen (NotDetected) Serum Alcohol mg/dL Influenza Type A (PCR) (Not Detectd) Influenza Type B (PCR) (Not Detectd) RSV (PCR) (Not Detectd) SARS-CoV-2 (PCR) (Not Detectd) 08/31/24 08/31/24 08/31/24 Range/Units 10:22 10:22 10:56 WBC (4.50-10.00) 10*3/uL RBC (4.10-5.20) 10*6/uL Hgb (12.0-15.0) g/dL Hct (37.2-46.3) % MCV (80.0-97.0) fL MCH (27.0-32.0) pg MCHC (32.0-37.0) g/dL Plt Count (140-440) 10*3/uL MPV (9.5-12.2) fL Immature Gran % (Auto) % Neutrophils % % Lymphocytes % % Monocytes % % Eosinophils % % Basophils % % Immature Gran # (0.00-0.04) 10*3/uL Neutrophils # (1.80-7.70) 10*3/uL Lymphocytes # (0.90-5.00) 10*3/uL Monocytes # (0.20-1.00) 10*3/uL Eosinophils # (0.04-0.35) 10*3/uL Basophils # (0.00-0.10) 10*3/uL PT (10.0-12.5) sec INR (<1.2) APTT (22.0-30.0) sec VBG pH 7.38 (7.31-7.41) VBG pCO2 52 H (37-51) mmHg VBG HCO3 30 H (24-28) mmol/L Sodium (137-145) mmol/L Potassium (3.5-5.1) mmol/L Chloride (98-107) mmol/L Carbon Dioxide (22-30) mmol/L Anion Gap mmol/L BUN (7-17) mg/dL Creatinine (0.52-1.04) mg/dL Est GFR (CKD-EPI)AfAm (>60 ml/min/1.73 sqM) Est GFR (CKD-EPI)NonAf (>60 ml/min/1.73 sqM) Glucose (74-99) mg/dL POC Glucose (mg/dL) (70-110) mg/dL POC Glu Digital Music Instructor ID Plasma Lactic Acid Tulio (0.7-2.0) mmol/L Calcium (8.4-10.2) mg/dL Total Bilirubin (0.2-1.3) mg/dL AST (14-36) U/L ALT (4-34) U/L Alkaline Phosphatase (38-126) U/L Ammonia (<30) umol/L Creatine Kinase (30-135) U/L Total Protein (6.3-8.2) g/dL Albumin (3.5-5.0) g/dL Urine Color Urine Appearance (Clear) Urine pH (5.0-8.0) Ur Specific Keo (1.001-1.035) Urine Protein (Negative) Urine Glucose (UA) (Negative) Urine Ketones (Negative) Urine Blood (Negative) Urine Nitrite (Negative) Urine Bilirubin (Negative) Urine Urobilinogen (<2.0) mg/dL Ur Leukocyte Esterase (Negative) Urine RBC (0-5) /hpf Urine WBC (0-5) /hpf Urine WBC Clumps (None) /hpf Ur Squamous Epith Cells (0-4) /hpf Urine Bacteria (None) /hpf Urine Opiates Screen Detected H (NotDetected) Ur Oxycodone Screen Detected H (NotDetected) Urine Methadone Screen Not Detected (NotDetected) Ur Barbiturates Screen Not Detected (NotDetected) U Tricyclic Antidepress Not Detected (NotDetected) Ur Phencyclidine Scrn Not Detected (NotDetected) Ur Amphetamines Screen Not Detected (NotDetected) U Methamphetamines Scrn Not Detected (NotDetected) U Benzodiazepines Scrn Not Detected (NotDetected) Urine Cocaine Screen Not Detected (NotDetected) U Marijuana (THC) Screen Not Detected (NotDetected) Serum Alcohol mg/dL Influenza Type A (PCR) Not Detected (Not Detectd) Influenza Type B (PCR) Not Detected (Not Detectd) RSV (PCR) Not Detected (Not Detectd) SARS-CoV-2 (PCR) Not Detected (Not Detectd) 08/31/24 Range/Units 10:56 WBC (4.50-10.00) 10*3/uL RBC (4.10-5.20) 10*6/uL Hgb (12.0-15.0) g/dL Hct (37.2-46.3) % MCV (80.0-97.0) fL MCH (27.0-32.0) pg MCHC (32.0-37.0) g/dL Plt Count (140-440) 10*3/uL MPV (9.5-12.2) fL Immature Gran % (Auto) % Neutrophils % % Lymphocytes % % Monocytes % % Eosinophils % % Basophils % % Immature Gran # (0.00-0.04) 10*3/uL Neutrophils # (1.80-7.70) 10*3/uL Lymphocytes # (0.90-5.00) 10*3/uL Monocytes # (0.20-1.00) 10*3/uL Eosinophils # (0.04-0.35) 10*3/uL Basophils # (0.00-0.10) 10*3/uL PT (10.0-12.5) sec INR (<1.2) APTT (22.0-30.0) sec VBG pH (7.31-7.41) VBG pCO2 (37-51) mmHg VBG HCO3 (24-28) mmol/L Sodium (137-145) mmol/L Potassium (3.5-5.1) mmol/L Chloride (98-107) mmol/L Carbon Dioxide (22-30) mmol/L Anion Gap mmol/L BUN (7-17) mg/dL Creatinine (0.52-1.04) mg/dL Est GFR (CKD-EPI)AfAm (>60 ml/min/1.73 sqM) Est GFR (CKD-EPI)NonAf (>60 ml/min/1.73 sqM) Glucose (74-99) mg/dL POC Glucose (mg/dL) (70-110) mg/dL POC Glu Digital Music Instructor ID Plasma Lactic Acid Tulio (0.7-2.0) mmol/L Calcium (8.4-10.2) mg/dL Total Bilirubin (0.2-1.3) mg/dL AST (14-36) U/L ALT (4-34) U/L Alkaline Phosphatase (38-126) U/L Ammonia (<30) umol/L Creatine Kinase (30-135) U/L Total Protein (6.3-8.2) g/dL Albumin (3.5-5.0) g/dL Urine Color Colorless Urine Appearance Turbid H (Clear) Urine pH 7.0 (5.0-8.0) Ur Specific Keo 1.017 (1.001-1.035) Urine Protein 1+ H (Negative) Urine Glucose (UA) Negative (Negative) Urine Ketones Negative (Negative) Urine Blood Moderate H (Negative) Urine Nitrite Negative (Negative) Urine Bilirubin Negative (Negative) Urine Urobilinogen <2.0 (<2.0) mg/dL Ur Leukocyte Esterase Large H (Negative) Urine RBC >182 H (0-5) /hpf Urine WBC >182 H (0-5) /hpf Urine WBC Clumps Many H (None) /hpf Ur Squamous Epith Cells 17 H (0-4) /hpf Urine Bacteria Few H (None) /hpf Urine Opiates Screen (NotDetected) Ur Oxycodone Screen (NotDetected) Urine Methadone Screen (NotDetected) Ur Barbiturates Screen (NotDetected) U Tricyclic Antidepress (NotDetected) Ur Phencyclidine Scrn (NotDetected) Ur Amphetamines Screen (NotDetected) U Methamphetamines Scrn (NotDetected) U Benzodiazepines Scrn (NotDetected) Urine Cocaine Screen (NotDetected) U Marijuana (THC) Screen (NotDetected) Serum Alcohol mg/dL Influenza Type A (PCR) (Not Detectd) Influenza Type B (PCR) (Not Detectd) RSV (PCR) (Not Detectd) SARS-CoV-2 (PCR) (Not Detectd) - EKG Data -: EKG Interpreted by Me EKG Comments: 12-lead Electrocardiogram Interpretation Note EKG was reviewed and interpreted by myself. 12-lead ECG performed at 0956 is interpreted by me as revealing normal sinus rhythm at a rate of 77 beats per minute. Alanson is normal. CT interval is 163 ms, QRS durations 104 ms, QTc is 426 ms.. There were no ST or T wave abnormalities to suggest myocardial isc hemia or injury. R wave progression across the precordium was delayed. By my interpretation this EKG is non-diagnostic for acute ischemia. Disposition Clinical Impression: UTI (urinary tract infection), AMS (altered mental status), Fall, Soft tissue mass Disposition: ADMITTED IP TO THIS HOSP Condition: Stable Time of Disposition: 12:30
[2024-08-31] MEDS ORDERED: METOPROLOL SUCCINATE (ER) 25 MG TAB.ER.24H PO PRN (14:27)
[2024-08-31] MEDS ORDERED: NON FORMULARY DRUG (Albuterol Inhaler 90 MCG Puff) INHALATION PRN (14:27)
[2024-08-31] MEDS ORDERED: oxyCODONE-APAP 10-325MG 1 EACH TAB PO PRN (14:27)
[2024-08-31] MEDS ORDERED: FUROSEMIDE 80 MG TAB PO PRN (14:27)
[2024-08-31] MEDS ORDERED: IPRATROPIUM-ALBUTEROL 3 ML NEB INHALATION PRN (14:27)
--- NOTE | 2024-08-31 15:09 | CT ---
EXAMINATION TYPE: CT pelvis wo con DATE OF EXAM: 08/31/2024 2:50 PM COMPARISON: CT abdomen/pelvis 07/01/2024. CLINICAL INDICATION: Female, 79 years old with history of pubic rami fracture?; possible pubic rami f racture TECHNIQUE: Axial CT pelvis wo con;Sagittal and coronal reformats were created on a separate workstat ion. Oral contrast used: without Oral Contrast CT DLP: 781.4 mGycm, Automated exposure control for dose reduction was used. FINDINGS: No acute fracture or dislocation. Mild to moderate degenerative arthritis of the bilateral hips. Lumb osacral spine degenerative changes partially visualized. Pelvic bones appear intact. Vascular calcifi cations noted. Colonic diverticulosis partially visualized without acute diverticulitis. Pathological ly enlarged right pelvic sidewall lymph node measures 27 mm in short axis compared. Right common shama c chain lymph node measures 13 mm in short access (11/106). Circumferential urinary bladder wall thickening with adjacent perivesicular stranding. Soft tissue ma ss associated with the right aspect of the rectum measures 4.1 x 3.9 cm (image 52/106). Uterus is danielle gically absent. IMPRESSION: 1. No acute fracture or dislocation. 2. 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 Recommend outpatient direct tissue sampling/biopsy and/or colonoscopy for further eval uation. 3. Circumferential urinary bladder wall thickening with adjacent perivesicular stranding. Recommend clinical correlation with urinalysis for cystitis. [facility], , 08/31/2024 3:07 PM
[2024-08-31] MEDS: MIDODRINE 5 MG TAB PO SCH (16:25)
[2024-08-31] MEDS: CALCIUM ACETATE 667 MG TAB PO SCH (17:42)
[2024-08-31] MEDS: ACETAMINOPHEN TAB 325 MG TAB PO PRN (20:05)
[2024-08-31] MEDS: ENOXAPARIN 40 MG/0.4 ML SYRINGE SQ SCH (22:41)
--- NOTE | 2024-08-31 22:49 | P.HPIM ---
History of Present Illness H&P Date: 08/31/24 Chief Complaint: Confused 79[address] Rizvi. Chronic medical conditions include hypertension, hyperlipidemia, depression, anxiety, osteoarthritis. End-stage kidney disease on hemodialysis. Patient gets hemodialysis Sunday and Sunday. Has right upper extremity fistula. Her blood pressure does fluctuate. Has midodrine ordered as needed. Patient also been diagnosed with bladder cancer. Locally by Dr. Joshua. Patient is not sure why she is here. Per the EMS report they received a call from a friend who did a welfare check. Officer location reported patient lying on the floor needing help getting dressed. Patient had a fall yesterday in [facility] she was transported for evaluation. Yesterday patient was alert to person place and time and stated to have back pain was chronic. Patient found to be more confused today. She is not able to tell me who brought her here and why she was brought here. She thinks is 2014. She does states she has been following. Patient not sure if she has been getting a dialysis Review of systems: GEN.: Tired EYES: None HEENT: None NECK: None RESPIRATORY: None CARDIOVASCULAR: None GASTROINTESTINAL: None GENITOURINARY: None MUSCULOSKELETAL: Some joint pains e] LYMPHATICS: None HEMATOLOGICAL: None PSYCHIATRY: Confused NEUROLOGICAL: None Past medical history to include: Hypertension, hyperlipidemia, depression, anxiety, osteoarthritis, end-stage kidney disease on hemodialysis, uterine cancer, bariatric surgery, depression, osteoarthritis. Bladder cancer Social history: Quit smoking over 30 years ago. Lives alone. Does use a cane at home and a walker when she goes out Physical examination: VITAL SIGNS: 97.6, 74, 18, 123 x 71, 95% room GENERAL: BMI 36.1. Slightly confused. Moving about. Right upper extremity fistula EYES: Pupils equal. Conjunctiva normal. HEENT: External appearance of nose and ears normal, oral cavity grossly normal. NECK: JVD not raised; masses not palpable. HEART: First and second heart sounds are normal; some edema. LUNGS: Respiratory rate normal; decreased breath sound ABDOMEN: Soft, nontender, liver spleen not palpable, no masses palpable. PSYCH: She is awake. Some fluctuation in mentation. She thinks is 2014. She thinks she is at the hospital. Does not know who brought her here. MUSCULOSKELETAL:No Clubbing/cyanosis;muscles-grossly intact. OA NEUROLOGICAL: Cranial nerves grossly intact. Power sensation grossly intact. INVESTIGATIONS, reviewed in the clinical context: August 31: White count 7.9 hemoglobin 9.9 platelets 266 potassium 4.6 BUN 29 creatinine 4.36 UA positive for leukoesterase WBC clumps negative for nitrite Urine drug screen positive for opiates, oxycodone Serum alcohol less than 10 Influenza type A, type B, RSV, SARS-CoV-2: Not detected X-ray pelvis AP view: Cortical irregularity involving the right superior pubic ramus. Possible fracture Chest x-ray film personally reviewed by me-some elevation of right diaphragm otherwise unremarkable CT brain: Nonspecific white matter changes. EKG tracing normal sinus rhythm. Poor R wave progression CT pelvis without contrast: Soft tissue mass associated with the right aspect of the rectum and pathologically enlarged right pelvic sidewall and right iliac chain adenopathy. Suspicious for malignancy. Circumferential urinary bladder wall thickening with adjacent perivesical stranding. Assessment and plan: - Metabolic encephalopathy/delirium. Patient's mentation is fluctuating. Patient is unable to tell me how she was brought here. She thinks is 2014. Is not sure she is taking her dialysis. could be uremic encephalopathy. Also possible UTI -Fall, multifactorial -Orthostatics with hypotension. Midodrine as needed -COPD in a prior smoker DuoNeb as needed - Bladder cancer diagnosed locally by Dr. Joshua. Previously: Per patient Dr. Joshua patient is due to have surgery in the [place] area -Anemia of chronic kidney disease - Acute UTI with possible cystitis. History of bladder cancer. IV meropenem was started in the ER based on previous culture ID consulted -End-stage kidney disease on hemodialysis. From diabetic nephropathy Days Sunday Consult nephrology -Essential hypertension, Toprol-XL. Prinivil-as needed. 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 lower arm Last Myocardial Infarction Date:: unknown History of Any Multi-Drug Resistant Organisms: ESBL Date of last positivie culture/infection: 05/07/24 MDRO Source:: urine Past Surgical History: Appendectomy, Bariatric Surgery, Cholecystectomy, Hysterectomy, Joint Replacement, Tonsillectomy Additional Past Surgical History / Comment(s): gastric bypass, surgery after fall -fx rt leg and foot, kashif knee replacement, kashif cataracts, surgery x 2 or "brain bleed", fistula for dialysis, colonoscopy Past Anesthesia/Blood Transfusion Reactions: No Reported Reaction, Family History of Problems w/ Anesthesia Additional Past Anesthesia/Blood Transfusion Reaction / Comment(s): MOTHER PONV Past Psychological History: No Psychological Hx Reported Smoking Status: Former smoker - Past Family History Mother Family Medical History: Cancer Father Family Medical History: Diabetes Mellitus, Hypertension Sister(s) Family Medical History: Cancer Medications and Allergies Home Medications Medication Instructions Recorded Confirmed Type Calcium Acetate 1,334 mg PO TID-W/MEALS 12/22/19 08/31/24 History oxyCODONE-APAP 10-325MG [Percocet 1 tab PO TID PRN 02/18/22 08/31/24 History 10-325 mg] Albuterol Inhaler [Ventolin Hfa 2 puff INHALATION RT-QID PRN 06/15/22 08/31/24 History Inhaler] Acetaminophen Tab [Tylenol] 650 mg PO Q4HR PRN tab 01/22/23 08/31/24 Rx Folic Acid/Vit B Complex and C 0.8 mg PO HS 08/27/23 08/31/24 History [Nephro-Karla Tablet] Lidocaine-Prilocaine Cream [Emla 1 applic TOPICAL MOWEFR PRN 08/27/23 08/31/24 History Cream 2.5%/2.5%] Ipratropium-Albuterol Nebulize 3 ml INHALATION RT-TID PRN 05/06/24 08/31/24 History [Duoneb 0.5 mg-3 mg/3 ml Soln] Metoprolol Succinate (ER) [Toprol 12.5 mg PO HS PRN 06/06/24 08/31/24 History XL] Furosemide [Lasix] 80 mg PO DAILY PRN 08/12/24 08/31/24 History Midodrine [ProAmatine] 2.5 - 5 mg PO AC-BID 08/12/24 08/31/24 History lisinopriL [Prinivil] 20 mg PO DAILY PRN 08/12/24 08/31/24 History Ertapenem [INVanz] 1 gm IM Q24H 08/31/24 08/31/24 History Ondansetron [Zofran] 4 mg PO Q8H PRN 08/31/24 08/31/24 History Allergies Allergy/AdvReac Type Severity Reaction Status Date / Time cefuroxime Allergy Rash/Hives Verified 08/31/24 14:07 naproxen [From Naprosyn] Allergy Dyspnea Verified 08/31/24 14:07 blood thinner AdvReac "brain Uncoded 08/31/24 14:07 bleed" Physical Exam Vitals: Vital Signs Temp Pulse Pulse Resp BP BP Pulse Ox 08/31/24 19:16 97.6 F 74 18 123/71 95 08/31/24 16:11 97.7 F 73 16 135/57 98 08/31/24 15:23 98.3 F 75 18 120/60 98 08/31/24 12:10 78 18 110/77 95 08/31/24 09:12 97.4 F L 75 18 123/64 96 Intake and Output 08/31/24 08/31/24 08/31/24 06:59 14:59 22:59 Intake Total 718 Output Total 400 Balance 318 Intake: Oral 718 Output: Urine 400 Other: Voiding Method Diaper External Catheter # Voids 1 Weight 92.533 kg 92.533 kg Results CBC & Chem 7: 08/31/24 10:12 08/31/24 10:12 Labs: Abnormal Lab Results - Last 24 Hours (Table) 08/31/24 08/31/24 08/31/24 Range/Units 10:12 10:12 10:22 RBC 2.99 L (4.10-5.20) 10*6/uL Hgb 9.9 L (12.0-15.0) g/dL Hct 31.2 L (37.2-46.3) % MCV 104.3 H (80.0-97.0) fL MCH 33.1 H (27.0-32.0) pg MCHC 31.7 L (32.0-37.0) g/dL MPV 9.3 L (9.5-12.2) fL Immature Gran # 0.08 H (0.00-0.04) 10*3/uL Eosinophils # 0.00 L (0.04-0.35) 10*3/uL VBG pCO2 52 H (37-51) mmHg VBG HCO3 30 H (24-28) mmol/L Sodium 136 L (137-145) mmol/L Chloride 97 L (98-107) mmol/L BUN 29 H (7-17) mg/dL Creatinine 4.36 H (0.52-1.04) mg/dL Glucose 104 H (74-99) mg/dL Alkaline Phosphatase 171 H (38-126) U/L Total Protein 5.7 L (6.3-8.2) g/dL Albumin 2.9 L (3.5-5.0) g/dL Urine Appearance (Clear) Urine Protein (Negative) Urine Blood (Negative) Ur Leukocyte Esterase (Negative) Urine RBC (0-5) /hpf Urine WBC (0-5) /hpf Urine WBC Clumps (None) /hpf Ur Squamous Epith Cells (0-4) /hpf Urine Bacteria (None) /hpf Urine Opiates Screen (NotDetected) Ur Oxycodone Screen (NotDetected) 08/31/24 08/31/24 Range/Units 10:56 10:56 RBC (4.10-5.20) 10*6/uL Hgb (12.0-15.0) g/dL Hct (37.2-46.3) % MCV (80.0-97.0) fL MCH (27.0-32.0) pg MCHC (32.0-37.0) g/dL MPV (9.5-12.2) fL Immature Gran # (0.00-0.04) 10*3/uL Eosinophils # (0.04-0.35) 10*3/uL VBG pCO2 (37-51) mmHg VBG HCO3 (24-28) mmol/L Sodium (137-145) mmol/L Chloride (98-107) mmol/L BUN (7-17) mg/dL Creatinine (0.52-1.04) mg/dL Glucose (74-99) mg/dL Alkaline Phosphatase (38-126) U/L Total Protein (6.3-8.2) g/dL Albumin (3.5-5.0) g/dL Urine Appearance Turbid H (Clear) Urine Protein 1+ H (Negative) Urine Blood Moderate H (Negative) Ur Leukocyte Esterase Large H (Negative) Urine RBC >182 H (0-5) /hpf Urine WBC >182 H (0-5) /hpf Urine WBC Clumps Many H (None) /hpf Ur Squamous Epith Cells 17 H (0-4) /hpf Urine Bacteria Few H (None) /hpf Urine Opiates Screen Detected H (NotDetected) Ur Oxycodone Screen Detected H (NotDetected) Thrombosis Risk Factor Assmnt - Choose All That Apply Any of the Below Risk Factors Present?: Yes Each Factor Represents 1 point: Medical pt on bed rest, Obesity (BMI >25) Other Risk Factors: Yes Each Risk Factor Represents 2 Points: Patient confined to bed, Malignancy Each Risk Factor Represents 3 Points: Age 75 years or older Thrombosis Risk Factor Assessment Total Risk Factor Score: 9 Thrombosis Risk Factor Assessment Level: High Risk
[2024-09-01 04:48] LABS: Basophils # (A) 0.02 10*3/uL (0.00-0.10); Basophils % (A) 0.2 %; Eosinophils # (A) 0.01 10*3/uL (0.04-0.35); Eosinophils % (A) 0.1 %; HCT 30.2 % (37.2-46.3); HGB 9.7 g/dL (12.0-15.0); Lymphocytes # (A) 2.07 10*3/uL (0.90-5.00); Lymphocytes % (A) 21.5 %; MCH 33.1 pg (27.0-32.0); MCHC 32.1 g/dL (32.0-37.0); MCV 103.1 fL (80.0-97.0); Monocytes # (A) 0.45 10*3/uL (0.20-1.00); Monocytes % (A) 4.7 %; Neutrophils # (A) 6.98 10*3/uL (1.80-7.70); Neutrophils % (A) 72.6 %; Platelet Count 296 10*3/uL (140-440); RBC 2.93 10*6/uL (4.10-5.20); RDW 14.8 % (11.5-14.5); WBC 9.62 10*3/uL (4.50-10.00)
[2024-09-01 05:06] LABS: ALT 11 U/L (4-34); African American GFR (CKD) 9 (>60 ml/min/1.73 sqM); Albumin 2.6 g/dL (3.5-5.0); Albumin/Globulin Ratio 1.0; Anion Gap 13 mmol/L; Blood Urea Nitrogen 35 mg/dL (7-17); Calcium 8.7 mg/dL (8.4-10.2); Carbon Dioxide 23 mmol/L (22-30); Chloride 99 mmol/L (98-107); Globulin 2.7 g/dL; Glucose 91 mg/dL (74-99); Non-African American GFR(CKD) 7 (>60 ml/min/1.73 sqM); Sodium 135 mmol/L (137-145); Total Protein 5.3 g/dL (6.3-8.2)
[2024-09-01 05:24] LABS: AST 29 U/L (14-36); Potassium 5.5 mmol/L (3.5-5.1)
[2024-09-01 05:25] LABS: Alkaline Phosphatase 157 U/L (38-126)
[2024-09-01 06:01] LABS: Glucose,Whole Blood 89 mg/dL (70-110)
[2024-09-01] MEDS: ONDANSETRON ODT 4 MG TAB PO PRN (06:12)
[2024-09-01 06:20] LABS: Glucose,Whole Blood 97 mg/dL (70-110)
[2024-09-01 06:25] LABS: ABG HCO3 27 mmol/L (21-25); ABG PCO2 46 mmHg (35-45); ABG PH 7.37 (7.35-7.45); ABG PO2 93 mmHg (83-108); ABG TCO2 28 mmol/L (19-24); Allen Test Performed? Yes
--- NOTE | 2024-09-01 07:14 | XR ---
EXAMINATION TYPE: XR chest 1V portable DATE OF EXAM: 09/01/2024 6:36 AM COMPARISON: 08/31/2024 CLINICAL INDICATION: Female, 79 years old with history of Resp distress, , FINDINGS: Heart upper limits of normal in size. Suspect some calcified AP window and left hilar lymph nodes. At herosclerotic arch calcifications. Similar asymmetric elevation right hemidiaphragm. Mild interstitia l density similar to slightly increased. Some patchy opacity at the right base, likely atelectasis. N o other consolidation or pleural effusion seen. IMPRESSION: Interstitial density similar to slightly increased. Correlate to exclude fluid overload/mild pulmonar y vascular congestion. [facility], Workstation: [id number], 09/01/2024 7:12 AM
[2024-09-01 07:15] LABS: Glucose,Whole Blood 87 mg/dL (70-110)
--- NOTE | 2024-09-01 07:17 | CT ---
EXAMINATION TYPE: CT brain wo con DATE OF EXAM: 09/01/2024 7:07 AM COMPARISON: 08/31/2024 CLINICAL INDICATION: Female, 79 years old with history of rule out CVA, weakness TECHNIQUE: Examination was done in axial plane without intravenous contrast. Coronal and sagittal r econstructions performed. CT DLP: 1186.4 mGycm, Automated exposure control for dose reduction was used. FINDINGS: There is no evidence of acute intracranial hemorrhage, acute ischemic changes, mass, mass-effect, or extra-axial fluid collection. There is no effacement of cerebral sulci or basal subarachnoid cister ns. There is no hydrocephalus. There is no midline shift. Rodriguez-white matter distinction is preserv ed. Partially empty sella. Oral mucosa along the right lateral convexity. Mild patchy white matter hypode nsities both cerebral hemispheres. Mild ventricular prominence likely due to central cerebral atrophy . Punctate basal ganglia calcification on the left is unchanged. Near complete opacification right maxillary sinus with reactive new osteogenesis of the sinus hager. Orbits and globes appear intact. Mastoid air cells well pneumatized. IMPRESSION: 1. Old right-sided rober holes. There is mild generalized cerebral atrophy and mild burden of chronic small vessel ischemic disease. No acute intracranial abnormality seen. 2. Long-standing severe right maxillary sinus disease. Consider outpatient ENT referral. [facility], , 09/01/2024 7:14 AM
[2024-09-01] MEDS ORDERED: levETIRAcetam IV 1,000 MG in SODIUM CHLORIDE 0.9% 250 ML IVPB ONE (09:13)
[2024-09-01] MEDS: FUROSEMIDE 10 MG/ML 4 ML VIAL IV STA (09:31)
[2024-09-01] MEDS: PANTOPRAZOLE 40 MG/10 ML VIAL IVP SCH (09:31)
[2024-09-01] MEDS: levETIRAcetam IV 500 MG/5 ML VIAL IVP ONE (09:33)
[2024-09-01] MEDS: LORazepam 1 MG/0.5 ML VIAL IV STA (10:32)
--- NOTE | 2024-09-01 10:45 | P.NPCON ---
History of Present Illness - Reason for Consult end stage renal disease - History of Present Illness Patient is a 79-year-old female with end-stage renal disease maintained on hemodialysis on Sunday schedule. She is admitted to the hospital with mental status changes and was found down on the floor by her friend. She was confused at that time. Patient was admitted to the regular floor for further evaluation and was transferred to ICU this morning due to positive blood code stroke. Patient was noted to be minimally responsive and there was concern for acute CVA. CT of the head is negative. While in the ICU patient had a witnessed tonic-clonic seizure and she received a gram of Keppra. It appears that previous episodes of decreased mentation were most likely related to seizures which were not witnessed. No previous history of seizures. Neurology on consult. No fever, diarrhea cough nausea vomiting. 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 lower arm Last Myocardial Infarction Date:: unknown History of Any Multi-Drug Resistant Organisms: ESBL Date of last positivie culture/infection: 05/07/24 MDRO Source:: urine Past Surgical History: Appendectomy, Bariatric Surgery, Cholecystectomy, Hysterectomy, Joint Replacement, Tonsillectomy Additional Past Surgical History / Comment(s): gastric bypass, surgery after fall -fx rt leg and foot, kashif knee replacement, kashif cataracts, surgery x 2 or "brain bleed", fistula for dialysis, colonoscopy Past Anesthesia/Blood Transfusion Reactions: No Reported Reaction, Family History of Problems w/ Anesthesia Additional Past Anesthesia/Blood Transfusion Reaction / Comment(s): MOTHER PONV Past Psychological History: No Psychological Hx Reported Smoking Status: Former smoker - Past Family History Mother Family Medical History: Cancer Father Family Medical History: Diabetes Mellitus, Hypertension Sister(s) Family Medical History: Cancer Medications and Allergies Home Medications Medication Instructions Recorded Confirmed Type Calcium Acetate 1,334 mg PO TID-W/MEALS 12/22/19 08/31/24 History oxyCODONE-APAP 10-325MG [Percocet 1 tab PO TID PRN 02/18/22 08/31/24 History 10-325 mg] Albuterol Inhaler [Ventolin Hfa 2 puff INHALATION RT-QID PRN 06/15/22 08/31/24 History Inhaler] Acetaminophen Tab [Tylenol] 650 mg PO Q4HR PRN tab 01/22/23 08/31/24 Rx Folic Acid/Vit B Complex and C 0.8 mg PO HS 08/27/23 08/31/24 History [Nephro-Karla Tablet] Lidocaine-Prilocaine Cream [Emla 1 applic TOPICAL MOWEFR PRN 08/27/23 08/31/24 History Cream 2.5%/2.5%] Ipratropium-Albuterol Nebulize 3 ml INHALATION RT-TID PRN 05/06/24 08/31/24 History [Duoneb 0.5 mg-3 mg/3 ml Soln] Metoprolol Succinate (ER) [Toprol 12.5 mg PO HS PRN 06/06/24 08/31/24 History XL] Furosemide [Lasix] 80 mg PO DAILY PRN 08/12/24 08/31/24 History Midodrine [ProAmatine] 2.5 - 5 mg PO AC-BID 08/12/24 08/31/24 History lisinopriL [Prinivil] 20 mg PO DAILY PRN 08/12/24 08/31/24 History Ertapenem [INVanz] 1 gm IM Q24H 08/31/24 08/31/24 History Ondansetron [Zofran] 4 mg PO Q8H PRN 08/31/24 08/31/24 History Allergies Allergy/AdvReac Type Severity Reaction Status Date / Time cefuroxime Allergy Rash/Hives Verified 08/31/24 14:07 naproxen [From Naprosyn] Allergy Dyspnea Verified 08/31/24 14:07 blood thinner AdvReac "brain Uncoded 08/31/24 14:07 bleed" Physical Exam Vitals: Vital Signs Temp Pulse Pulse Pulse Resp BP BP 09/01/24 10:00 74 12 137/76 09/01/24 09:30 78 17 127/69 09/01/24 09:00 79 8 L 09/01/24 08:45 98.6 F 75 29 H 141/75 09/01/24 06:17 96 137/73 09/01/24 06:03 91 18 155/89 09/01/24 01:08 97.9 F 67 20 152/72 08/31/24 19:16 97.6 F 74 18 123/71 08/31/24 17:30 120/60 08/31/24 17:00 83 08/31/24 16:30 120/60 08/31/24 16:11 97.7 F 73 16 135/57 08/31/24 16:00 120/60 08/31/24 15:30 120/60 08/31/24 15:23 98.3 F 75 18 120/60 08/31/24 15:00 76 8 L 08/31/24 14:30 118/67 08/31/24 14:00 81 7 L 08/31/24 13:30 71 19 08/31/24 13:00 77 10 L 08/31/24 12:30 76 16 110/77 08/31/24 12:10 78 18 110/77 08/31/24 12:00 112/63 08/31/24 11:00 80 16 Pulse Ox 09/01/24 10:00 97 09/01/24 09:30 100 09/01/24 09:00 100 09/01/24 08:45 97 09/01/24 06:17 09/01/24 06:03 96 09/01/24 01:08 93 L 08/31/24 19:16 95 08/31/24 17:30 08/31/24 17:00 08/31/24 16:30 08/31/24 16:11 98 08/31/24 16:00 08/31/24 15:30 08/31/24 15:23 98 08/31/24 15:00 08/31/24 14:30 08/31/24 14:00 88 L 08/31/24 13:30 08/31/24 13:00 93 L 08/31/24 12:30 08/31/24 12:10 95 08/31/24 12:00 08/31/24 11:00 94 L Intake and Output 08/31/24 09/01/24 09/01/24 22:59 06:59 14:59 Intake Total 718 390 Output Total 400 Balance 318 390 Intake: IV 390 Lactated Ringers 1,000 ml 390 @ 130 mls/hr IV .[id number] [facility] Rx#:[id number] Oral 718 Output: Urine 400 Other: Voiding Method Diaper Diaper External Catheter Incontinent # Voids 1 2 Weight 92.533 kg Patient is arousable. She does not communicate much. Examination of the heart S1 and S2 Examination of the lungs shows bilateral breath sounds are heard with decreased breath sounds at the bases Abdomen is soft nontender Examination of lower extremity shows trace edema bilaterally [employer] exam shows patient is moving all 4 extremities. She is lethargic, opens her eyes but does not communicate much. Results - Lab Results Most recent lab results ABG pH 7.37 (7.35-7.45) 09/01/24 06:20 ABG pCO2 46 mmHg (35-45) H 09/01/24 06:20 ABG pO2 93 mmHg (83-108) 09/01/24 06:20 ABG HCO3 27 mmol/L (21-25) H 09/01/24 06:20 ABG O2 Saturation 97.4 % (94-97) H 09/01/24 06:20 Calcium 8.7 mg/dL (8.4-10.2) 09/01/24 04:15 09/01/24 04:15 09/01/24 04:15 Assessment and Plan Assessment: 1. End-stage renal disease on hemodialysis on Sunday schedule 2. Mental status changes secondary to postictal state with new onset seizures 3. New onset seizures, neurology has been consulted 4. CKD mineral bone disorder Plan: Hemodialysis today DC IV fluids Antiepileptic medications as per neurology Thank you for the consultation. We will continue to follow the patient with you during her hospitalization.
--- NOTE | 2024-09-01 11:44 | P.CNPUL ---
History of Present Illness Consult date: 09/01/24 Requesting physician: Duncan Panchal Reason for consult: other (ICU management) Chief complaint: Altered mental status History of present illness: This is a 79-year-old female brought into the ER yesterday with altered mental status. Patient was found on the ground in front of the couch at home. Apparently the patient was in the ER the day prior for UTI which was diagnosed in the ER and the patient was initiated on antibiotics. Patient came back to the ER within 24 hours now the patient was found to be confused altered mental status, and apparently she was initially admitted to the medical floor. This morning the patient was transferred to the ICU because of witnessed seizures. Patient was found on the floor to be minimally responsive and there was a concern about acute CVA. CT of the head was negative and shortly after she arrived to the ICU patient was noted to have tonic-clonic seizure activity loaded with Keppra, neurology consultation is pending and the patient will be m aintained on Keppra. I saw the patient in the ICU, she seems to be confused, postictal, but not having any seizures activity during my evaluation. She seems to be arousable. But tends to fall asleep shortly after. ABG this morning showed a pO2 of 93 pCO2 46 pH of 7.37 and this was on room air. Labs today showed relatively normal CBC except for hemoglobin 9.7 potassium was 5.5, bicarb 23 BUN 35 creatinine 5.17, blood sugar was 87. Patient was seen by nephrology and the patient is known to have end-stage renal disease on hemodialysis Sunday and Sunday. Patient will be hemodialyzed today IV fluid presently at [facility]. And antiepileptic medications was started. 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 lower arm Last Myocardial Infarction Date:: unknown History of Any Multi-Drug Resistant Organisms: ESBL Date of last positivie culture/infection: 05/07/24 MDRO Source:: urine Past Surgical History: Appendectomy, Bariatric Surgery, Cholecystectomy, Hystere ctomy, Joint Replacement, Tonsillectomy Additional Past Surgical History / Comment(s): gastric bypass, surgery after fall -fx rt leg and foot, kashif knee replacement, kashif cataracts, surgery x 2 or "brain bleed", fistula for dialysis, colonoscopy Past Anesthesia/Blood Transfusion Reactions: No Reported Reaction, Family History of Problems w/ Anesthesia Additional Past Anesthesia/Blood Transfusion Reaction / Comment(s): MOTHER PONV Past Psychological History: No Psychological Hx Reported Smoking Status: Former smoker - Past Family History Mother Family Medical History: Cancer Father Family Medical History: Diabetes Mellitus, Hypertension Sister(s) Family Medical History: Cancer Medications and Allergies Home Medications Medication Instructions Recorded Confirmed Type Calcium Acetate 1,334 mg PO TID-W/MEALS 12/22/19 08/31/24 History oxyCODONE-APAP 10-325MG [Percocet 1 tab PO TID PRN 02/18/22 08/31/24 History 10-325 mg] Albuterol Inhaler [Ventolin Hfa 2 puff INHALATION RT-QID PRN 06/15/22 08/31/24 History Inhaler] Acetaminophen Tab [Tylenol] 650 mg PO Q4HR PRN tab 01/22/23 08/31/24 Rx Folic Acid/Vit B Complex and C 0.8 mg PO HS 08/27/23 08/31/24 History [Nephro-Karla Tablet] Lidocaine-Prilocaine Cream [Emla 1 applic TOPICAL MOWEFR PRN 08/27/23 08/31/24 History Cream 2.5%/2.5%] Ipratropium-Albuterol Nebulize 3 ml INHALATION RT-TID PRN 05/06/24 08/31/24 History [Duoneb 0.5 mg-3 mg/3 ml Soln] Metoprolol Succinate (ER) [Toprol 12.5 mg PO HS PRN 06/06/24 08/31/24 History XL] Furosemide [Lasix] 80 mg PO DAILY PRN 08/12/24 08/31/24 History Midodrine [ProAmatine] 2.5 - 5 mg PO AC-BID 08/12/24 08/31/24 History lisinopriL [Prinivil] 20 mg PO DAILY PRN 08/12/24 08/31/24 History Ertapenem [INVanz] 1 gm IM Q24H 08/31/24 08/31/24 History Ondansetron [Zofran] 4 mg PO Q8H PRN 08/31/24 08/31/24 History Allergies Allergy/AdvReac Type Severity Reaction Status Date / Time cefuroxime Allergy Rash/Hives Verified 08/31/24 14:07 naproxen [From Naprosyn] Allergy Dyspnea Verified 08/31/24 14:07 blood thinner AdvReac "brain Uncoded 08/31/24 14:07 bleed" Physical Exam Vitals: Vital Signs Temp Pulse Pulse Pulse Resp BP BP 09/01/24 11:00 67 12 124/66 09/01/24 10:30 70 12 118/67 09/01/24 10:00 74 12 137/76 09/01/24 09:30 78 17 127/69 09/01/24 09:00 79 8 L 09/01/24 08:45 98.6 F 75 29 H 141/75 09/01/24 06:17 96 137/73 09/01/24 06:03 91 18 155/89 09/01/24 01:08 97.9 F 67 20 152/72 08/31/24 19:16 97.6 F 74 18 123/71 08/31/24 17:30 120/60 08/31/24 17:00 83 08/31/24 16:30 120/60 08/31/24 16:11 97.7 F 73 16 135/57 08/31/24 16:00 120/60 08/31/24 15:30 120/60 08/31/24 15:23 98.3 F 75 18 120/60 08/31/24 15:00 76 8 L 08/31/24 14:30 118/67 08/31/24 14:00 81 7 L 08/31/24 13:30 71 19 08/31/24 13:00 77 10 L 08/31/24 12:30 76 16 110/77 08/31/24 12:10 78 18 110/77 08/31/24 12:00 112/63 Pulse Ox 09/01/24 11:00 98 09/01/24 10:30 98 09/01/24 10:00 97 09/01/24 09:30 100 09/01/24 09:00 100 09/01/24 08:45 97 09/01/24 06:17 09/01/24 06:03 96 09/01/24 01:08 93 L 08/31/24 19:16 95 08/31/24 17:30 08/31/24 17:00 08/31/24 16:30 08/31/24 16:11 98 08/31/24 16:00 08/31/24 15:30 08/31/24 15:23 98 08/31/24 15:00 08/31/24 14:30 08/31/24 14:00 88 L 08/31/24 13:30 08/31/24 13:00 93 L 08/31/24 12:30 08/31/24 12:10 95 08/31/24 12:00 Intake and Output 08/31/24 09/01/24 09/01/24 22:59 06:59 14:59 Intake Total 718 400 Output Total 400 Balance 318 400 Intake: IV 400 KVO 10 Lactated Ringers 1,000 ml 390 @ 130 mls/hr IV .[id number] [facility] Rx#:[id number] Oral 718 Output: Urine 400 Other: Voiding Method Diaper Diaper External Catheter Incontinent # Voids 1 2 1 Weight 92.533 kg General: Revealed a 79-year-old female obtunded, arousable, but tends to fall asleep easily, seems to be postictal. HEAD: Normal with no signs of head trauma. Negative Butt sign. Negative raccoon eyes. EYES: PERRLA, EOMI, conjunctiva normal, no discharge. Pupils are 2 mm and equal bilaterally. ENT: Dry mucous membranes otherwise negative. RESPIRATORY: Clear bilaterally no rhonchi no wheezes C/V: Distant S1-S2, no S3 gallop. No murmur. ABD: Soft nontender no rebound no guarding EXT: No clubbing edema or cyanosis SKIN: No rashes or lesions observed on exposed skin. NEURO: Obtunded, arousable, follows simple instructions but tends to fall asleep easily does not verbalize. Results - Laboratory Findings CBC and BMP: 07/21/25 04:15 09/01/24 04:15 ABG ABG pH 7.37 (7.35-7.45) 09/01/24 06:20 ABG pCO2 46 mmHg (35-45) H 09/01/24 06:20 ABG pO2 93 mmHg (83-108) 09/01/24 06:20 ABG O2 Saturation 97.4 % (94-97) H 09/01/24 06:20 PT/INR, D-dimer PT 10.2 sec (10.0-12.5) 08/31/24 10:12 INR 0.9 (<1.2) 08/31/24 10:12 Abnormal lab findings: Abnormal Labs 08/31/24 08/31/24 08/31/24 10:12 10:12 10:22 RBC 2.99 L Hgb 9.9 L Hct 31.2 L MCV 104.3 H MCH 33.1 H MCHC 31.7 L RDW MPV 9.3 L Immature Gran # 0.08 H Eosinophils # 0.00 L ABG pCO2 ABG HCO3 ABG Total CO2 ABG O2 Saturation VBG pCO2 52 H VBG HCO3 30 H Hemoglobin Sodium 136 L Potassium Chloride 97 L BUN 29 H Creatinine 4.36 H Glucose 104 H Alkaline Phosphatase 171 H Total Protein 5.7 L Albumin 2.9 L Urine Appearance Urine Protein Urine Blood Ur Leukocyte Esterase Urine RBC Urine WBC Urine WBC Clumps Ur Squamous Epith Cells Urine Bacteria Urine Opiates Screen Ur Oxycodone Screen 08/31/24 08/31/24 09/01/24 10:56 10:56 04:15 RBC 2.93 L Hgb 9.7 L Hct 30.2 L MCV 103.1 H MCH 33.1 H MCHC RDW 14.8 H MPV 9.3 L Immature Gran # 0.09 H Eosinophils # 0.01 L ABG pCO2 ABG HCO3 ABG Total CO2 ABG O2 Saturation VBG pCO2 VBG HCO3 Hemoglobin Sodium Potassium Chloride BUN Creatinine Glucose Alkaline Phosphatase Total Protein Albumin Urine Appearance Turbid H Urine Protein 1+ H Urine Blood Moderate H Ur Leukocyte Esterase Large H Urine RBC >182 H Urine WBC >182 H Urine WBC Clumps Many H Ur Squamous Epith Cells 17 H Urine Bacteria Few H Urine Opiates Screen Detected H Ur Oxycodone Screen Detected H 09/01/24 09/01/24 04:15 06:20 RBC Hgb Hct MCV MCH MCHC RDW MPV Immature Gran # Eosinophils # ABG pCO2 46 H ABG HCO3 27 H ABG Total CO2 28 H ABG O2 Saturation 97.4 H VBG pCO2 VBG HCO3 Hemoglobin 10.2 L Sodium 135 L Potassium 5.5 H Chloride BUN 35 H Creatinine 5.17 H Glucose Alkaline Phosphatase 157 H Total Protein 5.3 L Albumin 2.6 L Urine Appearance Urine Protein Urine Blood Ur Leukocyte Esterase Urine RBC Urine WBC Urine WBC Clumps Ur Squamous Epith Cells Urine Bacteria Urine Opiates Screen Ur Oxycodone Screen - Diagnostic Findings Chest x-ray: image reviewed (Chest x-ray showed slight prominence of the pulmonary vasculature otherwise unremarkable.) Additional studies: CT of the head showed old right-sided bur hole, generalized cerebral atrophy and mild burden of chronic small vessel ischemic disease. No acute process noted. There is however right maxillary sinus disease. Assessment and Plan Assessment: Impression: New onset seizures Postictal confusion and altered mental status Altered mental status secondary to above Acute urinary tract infection Chronic kidney disease, on hemodialysis Underlying COPD, inactive History of bladder cancer Anemia of chronic disease Benign essential hypertension Acute metabolic encephalopathy secondary to above History of degenerative joint disease Recommendation: Continue to monitor in the ICU Continue seizure precautions Loaded patient with Keppra and placed on Keppra 500 mg IV push daily Neurology was consulted GI and DVT prophylaxis patient is on Lovenox and on Protonix Continue Merrem for urinary tract infection/ESBL E. coli. Nephrology consultation was noted and appreciated patient will receive hemodialysis today. Resume home meds Will continue to follow. Time with Patient: Greater than 30
--- NOTE | 2024-09-01 12:07 | P.CNOR ---
History of Present Illness - [facility] Consult date: 09/01/24 Requesting physician: Duncan Panchal Consult reason: joint pain (Left hip pain) History of present illness: Patient is a pleasant 79-year-old female who is seen in the ICU for further evaluation of her left hip. We were consulted for left hip pain. Patient states at the bedside she does not have any left hip pain. X-ray and CT imaging was taken of the pelvis which did not show evidence of fracture at her left hip. There was a possible old pubic rami fracture on x-ray not identified on CT imaging. Patient does not have complaints in regards to her hip or lower extremities. She is able to answer some questions. Patient has had intermittent significant altered mental status. They think her mental status changes secondary to postictal state with new onset seizures. Patient is also known to have end-stage kidney disease and is on dialysis on Sunday, Sunday, and Sunday. Dialysis is currently being set up at the bedside. Neurology has been consulted for her new onset seizures. Patient was diagnosed with bladder cancer in the outpatient setting. She fol lows with Dr. Joshua. Past Medical History Past Medical History: Asthma, Cancer, COPD, Dialysis, Hyperlipidemia, Hypertension, Myocardial Infarction ([place]), Osteoarthritis ([place]), Pneumonia, Renal Disease, Thyroid Disorder Additional Past Medical History / Comment(s): Hx Uterine cancer 25 yrs ago, ESRD w/ hemodialysis Sun, Sun and Sun, varicose veins., "mild heart attack"" "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 lower arm Last Myocardial Infarction Date:: unknown History of Any Multi-Drug Resistant Organisms: ESBL Year Discovered:: 05/07/24 MDRO Source:: urine Past Surgical History: Appendectomy, Bariatric Surgery, Cholecystectomy, Hysterectomy, Joint Replacement, Tonsillectomy Additional Past Surgical History / Comment(s): gastric bypass, surgery after fall -fx rt leg and foot, kashif knee replacement, kashif cataracts, surgery x 2 or "brain bleed", fistula for dialysis, colonoscopy Past Anesthesia/Blood Transfusion Reactions: No Reported Reaction, Family History of Problems w/ Anesthesia Additional Past Anesthesia/Blood Transfusion Reaction / Comm: MOTHER PONV Past Psychological History: No Psychological Hx Reported Smoking Status: Former smoker - Past Family History Mother Family Medical History: Cancer Father Family Medical History: Diabetes Mellitus, Hypertension Sister(s) Family Medical History: Cancer Medications and Allergies Home Medications Medication Instructions Recorded Confirmed Type Calcium Acetate 1,334 mg PO TID-W/MEALS 12/22/19 08/31/24 History oxyCODONE-APAP 10-325MG [Percocet 1 tab PO TID PRN 02/18/22 08/31/24 History 10-325 mg] Albuterol Inhaler [Ventolin Hfa 2 puff INHALATION RT-QID PRN 06/15/22 08/31/24 History Inhaler] Acetaminophen Tab [Tylenol] 650 mg PO Q4HR PRN tab 01/22/23 08/31/24 Rx Folic Acid/Vit B Complex and C 0.8 mg PO HS 08/27/23 08/31/24 History [Nephro-Karla Tablet] Lidocaine-Prilocaine Cream [Emla 1 applic TOPICAL MOWEFR PRN 08/27/23 08/31/24 History Cream 2.5%/2.5%] Ipratropium-Albuterol Nebulize 3 ml INHALATION RT-TID PRN 05/06/24 08/31/24 History [Duoneb 0.5 mg-3 mg/3 ml Soln] Metoprolol Succinate (ER) [Toprol 12.5 mg PO HS PRN 06/06/24 08/31/24 History XL] Furosemide [Lasix] 80 mg PO DAILY PRN 08/12/24 08/31/24 History Midodrine [ProAmatine] 2.5 - 5 mg PO AC-BID 08/12/24 08/31/24 History lisinopriL [Prinivil] 20 mg PO DAILY PRN 08/12/24 08/31/24 History Ertapenem [INVanz] 1 gm IM Q24H 08/31/24 08/31/24 History Ondansetron [Zofran] 4 mg PO Q8H PRN 08/31/24 08/31/24 History Allergies Allergy/AdvReac Type Severity Reaction Status Date / Time cefuroxime Allergy Rash/Hives Verified 08/31/24 14:07 naproxen [From Naprosyn] Allergy Dyspnea Verified 08/31/24 14:07 blood thinner AdvReac "brain Uncoded 08/31/24 14:07 bleed" Physical Examination Physical Exam: Patient is arousable and able to answer some questions at the bedside Vital signs stable Good chest excursion with deep inspiration and expiration No pain with internal and external rotation of the hips bilaterally No pain with palpation over the left hip No signs or symptoms of DVT; no calf pain Results Pertinent studies: CT of the pelvis taken on 08/31/2024: No evidence of fracture or dislocation within the pelvis; no hip fracture; pubic rami fracture on x-ray not identified on CT; soft tissue mass associated with the right aspect of the rectum with pat hologically enlarged right pelvic sidewall and right iliac chain adenopathy highly suspicious for malignancy X-ray of the pelvis taken on 08/31/2024: There may be evidence of right superior pubic rami fracture - Labs Labs: Abnormal Lab Results - Last 24 Hours (Table) 09/01/24 09/01/24 09/01/24 Range/Units 04:15 04:15 06:20 RBC 2.93 L (4.10-5.20) 10*6/uL Hgb 9.7 L (12.0-15.0) g/dL Hct 30.2 L (37.2-46.3) % MCV 103.1 H (80.0-97.0) fL MCH 33.1 H (27.0-32.0) pg RDW 14.8 H (11.5-14.5) % MPV 9.3 L (9.5-12.2) fL Immature Gran # 0.09 H (0.00-0.04) 10*3/uL Eosinophils # 0.01 L (0.04-0.35) 10*3/uL ABG pCO2 46 H (35-45) mmHg ABG HCO3 27 H (21-25) mmol/L ABG Total CO2 28 H (19-24) mmol/L ABG O2 Saturation 97.4 H (94-97) % Hemoglobin 10.2 L (11.4-16.0) gm/dL Sodium 135 L (137-145) mmol/L Potassium 5.5 H (3.5-5.1) mmol/L BUN 35 H (7-17) mg/dL Creatinine 5.17 H (0.52-1.04) mg/dL Alkaline Phosphatase 157 H (38-126) U/L Total Protein 5.3 L (6.3-8.2) g/dL Albumin 2.6 L (3.5-5.0) g/dL H & H 08/31/24 09/01/24 Range/Units 10:12 04:15 Hgb 9.9 L 9.7 L (12.0-15.0) g/dL Hct 31.2 L 30.2 L (37.2-46.3) % Coagulation 08/31/24 Range/Units 10:12 INR 0.9 (<1.2) Result Diagrams: 09/02/24 05:29 09/02/24 05:29 Assessment and Plan Assessment: Assessment: End-stage kidney disease on hemodialysis Altered mental status thought to be secondary to postictal state with new onset seizures Hypertension Hyperlipidemia Uterine cancer Bladder cancer Soft tissue mass associated with the right aspect of the rectum with pathologically enlarged right pelvic sidewall and right iliac chain adenopathy highly suspicious for malignancy Plan: Plan: 1. Consultation has been placed for left hip pain. Patient does not currently have any pain at her left hip. CT and x-ray imaging of the pelvis did not show evidence of fracture at her left hip. Currently, we are not planning for further treatment or evaluation from an orthopedic standpoint during her admission to the hospital. Patient is cleared for discharge from orthopedic standpoint. 2. Patient currently has significant other medical diagnoses and is in the ICU. She has had altered mental status thought to be secondary to postictal change with new onset seizures. She is waiting for onsultation with neurology. 3. Patient is also end-stage renal disease and is on hemodialysis. She will continue to be seen by nephrology. 4. Patient will continue be seen exam by multiple other medical providers as well as including pulmonology and medicine. Other referrals can be made at the discretion of medicine in terms of her bladder cancer and soft tissue mass within the pelvis identified on CT imaging of the pelvis Agree with the above history, exam and plan, no orthopedic intervention required at this time. Farhat Alvarado MD Time with Patient: Greater than 30 (Including obtaining history, physical examination, reviewing of imaging, and dictation.)
--- NOTE | 2024-09-01 13:31 | P.CNNES ---
History of Present Illness Consult date: 09/01/24 Requesting physician: Barbi Caldwell Reason for Consult: Active seizures History of Present Illness: Patient is a 79-year-old female came to the hospital by ambulance yesterday morning at 9:10 AM for altered mental status. Patient not able to provide any history. As per EMS flowsheet EMS called by [place] [employer] after receiving a welfare check request from a friend. When they arrived, patient was laying on the floor and needed help getting dressed. Patient had a recent history of fall yesterday in which she was transported for evaluation. The patient was alert to person place and time and stated that her back pain was chronic today and the patient is confused and does not remember going to the hospital yesterday, is unaware if she is had her dialysis appointment. Patient was noted to be confused. During assessment in the ambulance, the patient became unresponsive with her eyes open and would not answer questions or respond to directions. This lasted approximately 3 minutes. Blood glucose was within normal limits. Patient remained lethargic and "not feeling well" for the duration of the transport. Vital signs at the scene was blood pressure 116/60, pulse rate 85 respiration 14 saturation 95%, blood sugar 148. Blood test shows normal WBC hemoglobin 9.5 with elevated MCV 1 of 4.3. Platelets are normal. PT PTT normal. Sodium 136 potassium 4.6, BUN 29 creatinine 4.36. Hepatic panel is normal. CK 39 ammonia is less than 9. UA shows large amount of leukocyte Estrace, negative nitrite more than 1-2 WBCs. Urine tox screen positive for opiates and oxycodone. Blood alcohol level negative. Influenza, RSV and coronavirus PCR negative. CT head showed no acute intracranial process. Nonspecific white matter changes, likely secondary to chronic small vessel ischemic disease. Similar small region of encephalomalacia within the right parietal lobe from prior injury. Chronic right maxillary sinusitis. I personally reviewed CT head and agree with the findings. Patient had a repeat CT head performed today which revealed old right sided bur holes. There is mild generalized cerebral atrophy and mild burden of chronic small vessel ischemic disease. No acute intracranial abnormality seen. Longstanding severe right maxillary sinus disease. Consider outpatient ENT referral. Apparently patient has history of intracranial bleed in the past. However she never has any history of seizures. She is not on any seizure medications. Patient was found down on the floor on 08/30/2024. Patient was brought to the ER and was felt to have a UTI and discharged home. However she was readmitted the next day, which is yesterday for similar event. Patient had a witnessed generalized tonic-clonic seizure in the ICU, witnessed by the nursing staff, in which she bit her tongue and it lasted for about 90 seconds. Patient was postictal after the seizure. Neurology was consulted. Patient given Keppra 1 g loading dose followed by Keppra 500 mg once daily dose because of her history of kidney failure and on dialysis. Patient also has history of uterine cancer, as well as bladder cancer. Home medications include Invanz, midodrine, lisinopril, Lasix, metoprolol, folic acid, oxycodone. Review of Systems Patient denies any headache or pain anywhere,. However she did admit later to having pain in the eye. She not able to provide detailed ROS. 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 lower arm Last Myocardial Infarction Date:: unknown History of Any Multi-Drug Resistant Organisms: ESBL Date of last positivie culture/infection: 05/07/24 MDRO Source:: urine Past Surgical History: Appendectomy, Bariatric Surgery, Cholecystectomy, Hysterectomy, Joint Replacement, Tonsillectomy Additional Past Surgical History / Comment(s): gastric bypass, surgery after fall -fx rt leg and foot, kashif knee replacement, kashif cataracts, surgery x 2 or "brain bleed", fistula for dialysis, colonoscopy Past Anesthesia/Blood Transfusion Reactions: No Reported Reaction, Family History of Problems w/ Anesthesia Additional Past Anesthesia/Blood Transfusion Reaction / Comment(s): MOTHER PONV Past Psychological History: No Psychological Hx Reported Smoking Status: Former smoker - Past Family History Mother Family Medical History: Cancer Father Family Medical History: Diabetes Mellitus, Hypertension Sister(s) Family Medical History: Cancer Medications and Allergies Home Medications Medication Instructions Recorded Confirmed Type Calcium Acetate 1,334 mg PO TID-W/MEALS 12/22/19 08/31/24 History oxyCODONE-APAP 10-325MG [Percocet 1 tab PO TID PRN 02/18/22 08/31/24 History 10-325 mg] Albuterol Inhaler [Ventolin Hfa 2 puff INHALATION RT-QID PRN 06/15/22 08/31/24 History Inhaler] Acetaminophen Tab [Tylenol] 650 mg PO Q4HR PRN tab 01/22/23 08/31/24 Rx Folic Acid/Vit B Complex and C 0.8 mg PO HS 08/27/23 08/31/24 History [Nephro-Karla Tablet] Lidocaine-Prilocaine Cream [Emla 1 applic TOPICAL MOWEFR PRN 08/27/23 08/31/24 History Cream 2.5%/2.5%] Ipratropium-Albuterol Nebulize 3 ml INHALATION RT-TID PRN 05/06/24 08/31/24 History [Duoneb 0.5 mg-3 mg/3 ml Soln] Metoprolol Succinate (ER) [Toprol 12.5 mg PO HS PRN 06/06/24 08/31/24 History XL] Furosemide [Lasix] 80 mg PO DAILY PRN 08/12/24 08/31/24 History Midodrine [ProAmatine] 2.5 - 5 mg PO AC-BID 08/12/24 08/31/24 History lisinopriL [Prinivil] 20 mg PO DAILY PRN 08/12/24 08/31/24 History Ertapenem [INVanz] 1 gm IM Q24H 08/31/24 08/31/24 History Ondansetron [Zofran] 4 mg PO Q8H PRN 08/31/24 08/31/24 History Allergies Allergy/AdvReac Type Severity Reaction Status Date / Time cefuroxime Allergy Rash/Hives Verified 08/31/24 14:07 naproxen [From Naprosyn] Allergy Dyspnea Verified 08/31/24 14:07 blood thinner AdvReac "brain Uncoded 08/31/24 14:07 bleed" Physical Examination - Vital Signs Vital Signs: Vital Signs Temp Pulse Pulse Pulse Resp BP BP 09/01/24 11:00 67 12 124/66 09/01/24 10:30 70 12 118/67 09/01/24 10:00 74 12 137/76 09/01/24 09:30 78 17 127/69 09/01/24 09:00 79 8 L 09/01/24 08:45 98.6 F 75 29 H 141/75 09/01/24 06:17 96 137/73 09/01/24 06:03 91 18 155/89 09/01/24 01:08 97.9 F 67 20 152/72 08/31/24 19:16 97.6 F 74 18 123/71 08/31/24 17:30 120/60 08/31/24 17:00 83 08/31/24 16:30 120/60 08/31/24 16:11 97.7 F 73 16 135/57 08/31/24 16:00 120/60 08/31/24 15:30 120/60 08/31/24 15:23 98.3 F 75 18 120/60 08/31/24 15:00 76 8 L 08/31/24 14:30 118/67 08/31/24 14:00 81 7 L 08/31/24 13:30 71 19 08/31/24 13:00 77 10 L 08/31/24 12:30 76 16 110/77 08/31/24 12:10 78 18 110/77 Pulse Ox 09/01/24 11:00 98 09/01/24 10:30 98 09/01/24 10:00 97 09/01/24 09:30 100 09/01/24 09:00 100 09/01/24 08:45 97 09/01/24 06:17 09/01/24 06:03 96 09/01/24 01:08 93 L 08/31/24 19:16 95 08/31/24 17:30 08/31/24 17:00 08/31/24 16:30 08/31/24 16:11 98 08/31/24 16:00 08/31/24 15:30 08/31/24 15:23 98 08/31/24 15:00 08/31/24 14:30 08/31/24 14:00 88 L 08/31/24 13:30 08/31/24 13:00 93 L 08/31/24 12:30 08/31/24 12:10 95 Intake and Output 08/31/24 09/01/24 09/01/24 22:59 06:59 14:59 Intake Total 718 400 Output Total 400 Balance 318 400 Intake: IV 400 KVO 10 Lactated Ringers 1,000 ml 390 @ 130 mls/hr IV .Q7H42M [facility] Rx#:[id number] Oral 718 Output: Urine 400 Other: Voiding Method Diaper Diaper External Catheter Incontinent # Voids 1 2 1 Weight 92.533 kg Patient is an elderly female, who is laying in the bed, having hemodialysis. She is drowsy, postictal, keeping her eyes closed. Patient did nod "no" for headache or pain anywhere. Patient knows it is the month of August and for the year patient says September and then sees October. She states she is in [facility] and then she said she is in [place] in the hospital but does not know the name. Speech is slightly groggy, but appears to speak very clearly. Patient is appearing comfortable otherwise. Speech and language functions are normal. Patient can name and repeat very well. No aphasia or dysarthria. Attention, concentration and fund of knowledge is limited. On cranial nerve examination, pupils are equal, round and reacting to light, patient did not cooperate for visual field testing. Gaze is midline. Patient while opening the eye, keeps the left eye closed, but then opened both eyes. She states her left eye hurts. No obvious seizure-like activity noted. Face is symmetric, tongue protrudes to the midline. Palatal elevation and sensation normal, hearing and shoulder shrug normal, facial sensation normal. Patient has evidence of tongue bite dragan. On muscle strength testing, patient appears generalized weak, but appears very symmetric. 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 Hip flexion is 3+ bilaterally. Again patient did not cooperate fully, appears generalized weak. No focality. Deep tendon reflexes are symmetric hypoactive and plantars downgoing. Sensory to touch is equal with no neglect on double simultaneous stimulation. Cerebellar function patient did not cooperate. Tone and bulk of muscles normal. Gait deferred.. On general examination, there is no carotid bruit or murmur, S1-S2 audible. Chest is clear on consultation. Abdomen is soft nontender. No organomegaly, bowel sounds present. Peripheral pulses are present. There is mild peripheral edema. Results - Laboratory Findings CBC and BMP: 09/01/24 04:15 09/01/24 04:15 Abnormal Lab Findings: Abnormal Labs 08/31/24 08/31/24 08/31/24 10:12 10:12 10:22 RBC 2.99 L Hgb 9.9 L Hct 31.2 L MCV 104.3 H MCH 33.1 H MCHC 31.7 L RDW MPV 9.3 L Immature Gran # 0.08 H Eosinophils # 0.00 L ABG pCO2 ABG HCO3 ABG Total CO2 ABG O2 Saturation VBG pCO2 52 H VBG HCO3 30 H Hemoglobin Sodium 136 L Potassium Chloride 97 L BUN 29 H Creatinine 4.36 H Glucose 104 H Alkaline Phosphatase 171 H Total Protein 5.7 L Albumin 2.9 L Urine Appearance Urine Protein Urine Blood Ur Leukocyte Esterase Urine RBC Urine WBC Urine WBC Clumps Ur Squamous Epith Cells Urine Bacteria Urine Opiates Screen Ur Oxycodone Screen 08/31/24 08/31/24 09/01/24 10:56 10:56 04:15 RBC 2.93 L Hgb 9.7 L Hct 30.2 L MCV 103.1 H MCH 33.1 H MCHC RDW 14.8 H MPV 9.3 L Immature Gran # 0.09 H Eosinophils # 0.01 L ABG pCO2 ABG HCO3 ABG Total CO2 ABG O2 Saturation VBG pCO2 VBG HCO3 Hemoglobin Sodium Potassium Chloride BUN Creatinine Glucose Alkaline Phosphatase Total Protein Albumin Urine Appearance Turbid H Urine Protein 1+ H Urine Blood Moderate H Ur Leukocyte Esterase Large H Urine RBC >182 H Urine WBC >182 H Urine WBC Clumps Many H Ur Squamous Epith Cells 17 H Urine Bacteria Few H Urine Opiates Screen Detected H Ur Oxycodone Screen Detected H 09/01/24 09/01/24 04:15 06:20 RBC Hgb Hct MCV MCH MCHC RDW MPV Immature Gran # Eosinophils # ABG pCO2 46 H ABG HCO3 27 H ABG Total CO2 28 H ABG O2 Saturation 97.4 H VBG pCO2 VBG HCO3 Hemoglobin 10.2 L Sodium 135 L Potassium 5.5 H Chloride BUN 35 H Creatinine 5.17 H Glucose Alkaline Phosphatase 157 H Total Protein 5.3 L Albumin 2.6 L Urine Appearance Urine Protein Urine Blood Ur Leukocyte Esterase Urine RBC Urine WBC Urine WBC Clumps Ur Squamous Epith Cells Urine Bacteria Urine Opiates Screen Ur Oxycodone Screen Assessment and Plan Assessment: * New onset seizures, probably secondary generalized tonic-clonic seizure. * History of right-sided craniotomy for "brain bleed". * ESRD, on hemodialysis * Altered mental status, likely due to toxic metabolic encephalopathy and from postictal state. * Acute UTI * Hypertension * Hyperlipidemia * Uterine cancer * Bladder cancer * Soft tissue mass associated with the right aspect of the rectum with patho logically enlarged right pelvic sidewall and right iliac chain adenopathy, highly suspicious for malignancy. Plan: * Stat EEG. * Patient started on Keppra 500 mg once daily for new onset seizure. Would recommend extra bolus of Keppra 250 mg postdialysis. * Consider MRI of the brain, when medically stable. * Patient also has probable malignancy, for which recommend oncology hematology consultation. * Other medical management as per IM and other specialties on board. * Neurology will follow. Thank you for the consult. Time with Patient: Greater than 30
[2024-09-01] MEDS: FOLIC ACID-VIT B COMPLEX-VIT C 1 CAP PO SCH (20:43)
[2024-09-01] MEDS: ENOXAPARIN 30 MG/0.3 ML SYRINGE SQ SCH (20:45)
--- NOTE | 2024-09-01 21:13 | P.PN ---
Subjective Progress Note Date: 09/01/[address] Rizvi. Chronic medical conditions include hypertension, hyperlipidemia, depression, anxiety, osteoarthritis. End-stage kidney disease on hemodialysis. Patient gets hemodialysis Sunday and Sunday. Has right upper extremity fistula. Her blood pressure does fluctuate. Has midodrine ordered as needed. Patient also been diagnosed with bladder cancer. Locally by Dr. Joshua. Patient is not sure why she is here. Per the EMS report they received a call from a friend who did a welfare check. Officer location reported patient lying on the floor needing help getting dressed. Patient had a fall yesterday in which she was transported for evaluation. Yesterday patient was alert to person place and time and stated to have back pain was chronic. Patient found to be more confused today. She is not able to tell me who brought her here and why she was brought here. She thinks is 2014. She does states she has been following. Patient not sure if she has been getting a dialysis 09/01/2024 Patient is in the MICU. Awake alert and mental status improving. No complaints of chest pain or shortness of breath. No headache or dizziness or lightheadedness. No prior history of seizures. Laboratory data showed WC 9.6 hemoglobin 9.7 and platelets 296, MCV 103.1 Sodium 134 potassium 5.5 BUN [address] head showed old right-sided bur hole. Mild generalized cerebral atrophy and mild burden of chronic small vessel ischemic disease. No acute intracranial abnormality. Longstanding severe right maxillary sinus disease. Consider outpatient ENT referral. Chest x-ray showed interstitial densities similar to slightly increased. Correlate to exclude fluid overload/mild pulmonary vascular congestion. Review of systems: GEN.: Tired EYES: None HEENT: None NECK: None RESPIRATORY: None CARDIOVASCULAR: None GASTROINTESTINAL: None GENITOURINARY: None MUSCULOSKELETAL: Some joint pains e] LYMPHATICS: None HEMATOLOGICAL: None PSYCHIATRY: Confused NEUROLOGICAL: None Past medical history to include: Hypertension, hyperlipidemia, depression, anxiety, osteoarthritis, end-stage kidney disease on hemodialysis, uterine cancer, bariatric surgery, depression, osteoarthritis. Bladder cancer Social history: Quit smoking over 30 years ago. Lives alone. Does use a cane at home and a walker when she goes out Physical examination: VITAL SIGNS: 97.6, 74, 18, 123 x 71, 95% room GENERAL: BMI 36.1. Slightly confused. Moving about. Right upper extremity fistula EYES: Pupils equal. Conjunctiva normal. HEENT: External appearance of nose and ears normal, oral cavity grossly normal. NECK: JVD not raised; masses not palpable. HEART: First and second heart sounds are normal; some edema. LUNGS: Respiratory rate normal; decreased breath sound ABDOMEN: Soft, nontender, liver spleen not palpable, no masses palpable. PSYCH: She is awake. Some fluctuation in mentation. She thinks is 2015. She thinks she is at the hospital. Does not know who brought her here. MUSCULOSKELETAL:No Clubbing/cyanosis;muscles-grossly intact. OA NEUROLOGICAL: Cranial nerves grossly intact. Power sensation grossly intact. INVESTIGATIONS, reviewed in the clinical context: August 31: White count 7.9 hemoglobin 9.9 platelets 266 potassium 4.6 BUN 29 cre atinine 4.36 UA positive for leukoesterase WBC clumps negative for nitrite Urine drug screen positive for opiates, oxycodone Serum alcohol less than 10 Influenza type A, type B, RSV, SARS-CoV-2: Not detected X-ray pelvis AP view: Cortical irregularity involving the right superior pubic ramus. Possible fracture Chest x-ray film personally reviewed by me-some elevation of right diaphragm otherwise unremarkable CT brain: Nonspecific white matter changes. EKG tracing normal sinus rhythm. Poor R wave progression CT pelvis without contrast: Soft tissue mass associated with the right aspect of the rectum and pathologically enlarged right pelvic sidewall and right iliac chain adenopathy. Suspicious for malignancy. Circumferential urinary bladder wall thickening with adjacent perivesical stranding. Assessment and plan: -Altered mental status secondary to postictal state. Improving. Patient's mentation is fluctuating. Patient was seen by neurology. CT head showed no acute intracranial process. Patient was started on Keppra 40 mg IV daily. Continue with seizure precautions . -Fall, multifactorial -Orthostatics with hypotension. Midodrine as needed -COPD in a prior smoker DuoNeb as needed - Bladder cancer diagnosed locally by Dr. Joshua. Previously: Per patient Dr. Joshua patient is due to have surgery in the [place] area -Anemia of chronic kidney disease - Acute UTI with possible cystitis. History of bladder cancer. IV meropenem was started in the ER based on previous culture ID is on board. -End-stage kidney disease on hemodialysis. Left upper extremity AV fistula. From diabetic nephropathy Days Sunday Nephrology is following and hemodialysis as per schedule. -Essential hypertension, Toprol-XL. Prinivil-as needed. -Primary osteoarthritis Tylenol as needed -Obesity BMI 35.4 Weight loss measures -DO NOT RESUSCITATE Given the complexity and severity of patient's condition expect the patient to be in the hospital at least for 2 overnights Objective - Vital Signs Vital signs: Vital Signs Temp 97.7 F 09/01/24 16:00 Pulse 78 09/01/24 18:00 Resp 12 09/01/24 18:00 BP 101/62 09/01/24 18:00 Pulse Ox 95 09/01/24 18:00 FiO2 Intake & Output 08/31/24 09/01/24 09/01/24 18:59 06:59 18:59 Intake Total 718 960 Output Total 400 3500 Balance 318 -2540 Weight 92.533 kg Intake: IV 460 KVO 70 Lactated Ringers 1,000 ml 390 @ 130 mls/hr IV .Q7H42M [facility] Rx#:[id number] Oral 718 Hemodialysis 500 Output: Urine 400 0 Hemodialysis 2000 Hemodialysis Net Amount 1500 Other: Voiding Method Diaper Diaper Diaper External Catheter External Catheter Incontinent # Voids 2 1 - Labs CBC & Chem 7: 09/01/24 04:15 09/01/24 04:15 Labs: Abnormal Lab Results - Last 24 Hours (Table) 09/01/24 09/01/24 09/01/24 Range/Units 04:15 04:15 06:20 RBC 2.93 L (4.10-5.20) 10*6/uL Hgb 9.7 L (12.0-15.0) g/dL Hct 30.2 L (37.2-46.3) % MCV 103.1 H (80.0-97.0) fL MCH 33.1 H (27.0-32.0) pg RDW 14.8 H (11.5-14.5) % MPV 9.3 L (9.5-12.2) fL Immature Gran # 0.09 H (0.00-0.04) 10*3/uL Eosinophils # 0.01 L (0.04-0.35) 10*3/uL ABG pCO2 46 H (35-45) mmHg ABG HCO3 27 H (21-25) mmol/L ABG Total CO2 28 H (19-24) mmol/L ABG O2 Saturation 97.4 H (94-97) % Hemoglobin 10.2 L (11.4-16.0) gm/dL Sodium 135 L (137-145) mmol/L Potassium 5.5 H (3.5-5.1) mmol/L BUN 35 H (7-17) mg/dL Creatinine 5.17 H (0.52-1.04) mg/dL Alkaline Phosphatase 157 H (38-126) U/L Total Protein 5.3 L (6.3-8.2) g/dL Albumin 2.6 L (3.5-5.0) g/dL
--- NOTE | 2024-09-01 21:48 | P.CONS ---
History of Present Illness - Reason for Consult Consult date: 09/01/24 UTI Requesting physician: Duncan Panchal - Chief Complaint Mental status changes x 1 day - History of Present Illness Patient is a 79-year-old female with a past medical history significant for Asthma, Cancer, COPD, Dialysis, Hyperlipidemia, Hypertension, Myocardial Infarction ([place]), Osteoarthritis (OA), Pneumonia, Renal Disease, Thyroid Disorder, uterine cancer end-stage renal disease on hemodialysis still makes urine presenting to the hospital yesterday afternoon after apparently patient was found on the ground in front of her couch at home along with altered mentation patient was noticed to be confused there was concern for possible seizure activity as the patient was noted to be postictal and subsequently have a seizure in the hospital on presentation to the hospital the patient was afebrile and no fever Blood count subsequently patient was nontachycardic hypotensive or hypoxic though currently on a 2 L nasal cannula oxygen patient did have a white count of 9.62 with a left shift BUN of 35 creatinine is 5.17 liver enzymes are normal she did have a significantly positive UA urine testing was positive for opiates and oxycodone influenza RSV COVID testing has been negative last urine culture on 05/07/2024 was positive for ESBL E. coli patient d id have a chest x-ray that was negative for acute cardiopulmonary disease process patient was started on meropenem concerning for ESBL E. coli UTI infectious was consulted for further management of antibiotic therapy at the time of evaluation patient was undergoing dialysis lethargic but arousable she did respond to her name when asked specifically for any urinary symptoms of burning or frequency the patient replied yes did have some nausea but no vomiting no diarrhea no chest pain shortness of breath or cough Review of Systems Positive points has been mentioned in HPI complete review could not be obtained because of his underlying mental status Past Medical History Past Medical History: Asthma, Cancer, COPD, Dialysis, Hyperlipidemia, Hypertension, Myocardial Infarction ([place]), Osteoarthritis (OA), Pneumonia, Renal Disease, Thyroid Disorder Additional Past Medical History / Comment(s): Hx Uterine cancer 25 yrs ago, ESRD w/ hemodialysis Mon, Wed and Fri, varicose veins., "mild heart attack"" "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 lower arm Last Myocardial Infarction Date:: unknown History of Any Multi-Drug Resistant Organisms: ESBL Year Discovered:: 05/07/24 MDRO Source:: urine Past Surgical History: Appendectomy, Bariatric Surgery, Cholecystectomy, Hysterectomy, Joint Replacement, Tonsillectomy Additional Past Surgical History / Comment(s): gastric bypass, surgery after fall -fx rt leg and foot, kashif knee replacement, kashif cataracts, surgery x 2 or "brain bleed", fistula for dialysis, colonoscopy Past Anesthesia/Blood Transfusion Reactions: No Reported Reaction, Family History of Problems w/ Anesthesia Additional Past Anesthesia/Blood Transfusion Reaction / Comm: MOTHER PONV Past Psychological History: No Psychological Hx Reported Smoking Status: Former smoker - Past Family History Mother Family Medical History: Cancer Father Family Medical History: Diabetes Mellitus, Hypertension Sister(s) Family Medical History: Cancer Medications and Allergies Home Medications Medication Instructions Recorded Confirmed Type Calcium Acetate 1,334 mg PO TID-W/MEALS 12/22/19 08/31/24 History oxyCODONE-APAP 10-325MG [Percocet 1 tab PO TID PRN 02/18/22 08/31/24 History 10-325 mg] Albuterol Inhaler [Ventolin Hfa 2 puff INHALATION RT-QID PRN 06/15/22 08/31/24 History Inhaler] Acetaminophen Tab [Tylenol] 650 mg PO Q4HR PRN tab 01/22/23 08/31/24 Rx Folic Acid/Vit B Complex and C 0.8 mg PO HS 08/27/23 08/31/24 History [Nephro-Karla Tablet] Lidocaine-Prilocaine Cream [Emla 1 applic TOPICAL MOWEFR PRN 08/27/23 08/31/24 History Cream 2.5%/2.5%] Ipratropium-Albuterol Nebulize 3 ml INHALATION RT-TID PRN 05/06/24 08/31/24 History [Duoneb 0.5 mg-3 mg/3 ml Soln] Metoprolol Succinate (ER) [Toprol 12.5 mg PO HS PRN 06/06/24 08/31/24 History XL] Furosemide [Lasix] 80 mg PO DAILY PRN 08/12/24 08/31/24 History Midodrine [ProAmatine] 2.5 - 5 mg PO AC-BID 08/12/24 08/31/24 History lisinopriL [Prinivil] 20 mg PO DAILY PRN 08/12/24 08/31/24 History Ertapenem [INVanz] 1 gm IM Q24H 08/31/24 08/31/24 History Ondansetron [Zofran] 4 mg PO Q8H PRN 08/31/24 08/31/24 History Allergies Allergy/AdvReac Type Severity Reaction Status Date / Time cefuroxime Allergy Rash/Hives Verified 08/31/24 14:07 naproxen [From Naprosyn] Allergy Dyspnea Verified 08/31/24 14:07 blood thinner AdvReac "brain Uncoded 08/31/24 14:07 bleed" Physical Exam Vitals: Vital Signs Temp Pulse Pulse Pulse Resp BP BP 09/01/24 10:00 74 12 137/76 09/01/24 09:30 78 17 127/69 09/01/24 09:00 79 8 L 09/01/24 08:45 98.6 F 75 29 H 141/75 09/01/24 06:17 96 137/73 09/01/24 06:03 91 18 155/89 09/01/24 01:08 97.9 F 67 20 152/72 08/31/24 19:16 97.6 F 74 18 123/71 08/31/24 17:30 120/60 08/31/24 17:00 83 08/31/24 16:30 120/60 08/31/24 16:11 97.7 F 73 16 135/57 08/31/24 16:00 120/60 08/31/24 15:30 120/60 08/31/24 15:23 98.3 F 75 18 120/60 08/31/24 15:00 76 8 L 08/31/24 14:30 118/67 08/31/24 14:00 81 7 L 08/31/24 13:30 71 19 08/31/24 13:00 77 10 L 08/31/24 12:30 76 16 110/77 08/31/24 12:10 78 18 110/77 08/31/24 12:00 112/63 Pulse Ox 09/01/24 10:00 97 09/01/24 09:30 100 09/01/24 09:00 100 09/01/24 08:45 97 09/01/24 06:17 09/01/24 06:03 96 09/01/24 01:08 93 L 08/31/24 19:16 95 08/31/24 17:30 08/31/24 17:00 08/31/24 16:30 08/31/24 16:11 98 08/31/24 16:00 08/31/24 15:30 08/31/24 15:23 98 08/31/24 15:00 08/31/24 14:30 08/31/24 14:00 88 L 08/31/24 13:30 08/31/24 13:00 93 L 08/31/24 12:30 08/31/24 12:10 95 08/31/24 12:00 Intake and Output 08/31/24 09/01/24 09/01/24 22:59 06:59 14:59 Intake Total 718 400 Output Total 400 Balance 318 400 Intake: IV 400 KVO 10 Lactated Ringers 1,000 ml 390 @ 130 mls/hr IV .Q7H42M [facility] Rx#:[id number] Oral 718 Output: Urine 400 Other: Voiding Method Diaper Diaper External Catheter Incontinent # Voids 1 2 1 Weight 92.533 kg GENERAL DESCRIPTION: Elderly female lying in bed, no distress. No tachypnea or accessory muscle of respiration use. HEENT: Shows Pallor , no scleral icterus. Oral mucous membrane is dry. NECK: Trachea central, no thyromegaly. LUNGS: Unlabored breathing. Decreased breath sound at the base HEART: S1, S2, regular rate and rhythm. No loud murmur ABDOMEN: Soft, no tenderness , EXTREMITIES: No edema of feet. SKIN: No rash, no masses palpable. NEUROLOGICAL: The patient is lethargic but arousable mood and affect is normal Results CBC & Chem 7: 09/01/24 04:15 09/01/24 04:15 Labs: Abnormal Lab Results - Last 24 Hours (Table) 08/31/24 08/31/24 09/01/24 Range/Units 10:56 10:56 04:15 RBC 2.93 L (4.10-5.20) 10*6/uL Hgb 9.7 L (12.0-15.0) g/dL Hct 30.2 L (37.2-46.3) % MCV 103.1 H (80.0-97.0) fL MCH 33.1 H (27.0-32.0) pg RDW 14.8 H (11.5-14.5) % MPV 9.3 L (9.5-12.2) fL Immature Gran # 0.09 H (0.00-0.04) 10*3/uL Eosinophils # 0.01 L (0.04-0.35) 10*3/uL ABG pCO2 (35-45) mmHg ABG HCO3 (21-25) mmol/L ABG Total CO2 (19-24) mmol/L ABG O2 Saturation (94-97) % Hemoglobin (11.4-16.0) gm/dL Sodium (137-145) mmol/L Potassium (3.5-5.1) mmol/L BUN (7-17) mg/dL Creatinine (0.52-1.04) mg/dL Alkaline Phosphatase (38-126) U/L Total Protein (6.3-8.2) g/dL Albumin (3.5-5.0) g/dL Urine Appearance Turbid H (Clear) Urine Protein 1+ H (Negative) Urine Blood Moderate H (Negative) Ur Leukocyte Esterase Large H (Negative) Urine RBC >182 H (0-5) /hpf Urine WBC >182 H (0-5) /hpf Urine WBC Clumps Many H (None) /hpf Ur Squamous Epith Cells 17 H (0-4) /hpf Urine Bacteria Few H (None) /hpf Urine Opiates Screen Detected H (NotDetected) Ur Oxycodone Screen Detected H (NotDetected) 09/01/24 09/01/24 Range/Units 04:15 06:20 RBC (4.10-5.20) 10*6/uL Hgb (12.0-15.0) g/dL Hct (37.2-46.3) % MCV (80.0-97.0) fL MCH (27.0-32.0) pg RDW (11.5-14.5) % MPV (9.5-12.2) fL Immature Gran # (0.00-0.04) 10*3/uL Eosinophils # (0.04-0.35) 10*3/uL ABG pCO2 46 H (35-45) mmHg ABG HCO3 27 H (21-25) mmol/L ABG Total CO2 28 H (19-24) mmol/L ABG O2 Saturation 97.4 H (94-97) % Hemoglobin 10.2 L (11.4-16.0) gm/dL Sodium 135 L (137-145) mmol/L Potassium 5.5 H (3.5-5.1) mmol/L BUN 35 H (7-17) mg/dL Creatinine 5.17 H (0.52-1.04) mg/dL Alkaline Phosphatase 157 H (38-126) U/L Total Protein 5.3 L (6.3-8.2) g/dL Albumin 2.6 L (3.5-5.0) g/dL Urine Appearance (Clear) Urine Protein (Negative) Urine Blood (Negative) Ur Leukocyte Esterase (Negative) Urine RBC (0-5) /hpf Urine WBC (0-5) /hpf Urine WBC Clumps (None) /hpf Ur Squamous Epith Cells (0-4) /hpf Urine Bacteria (None) /hpf Urine Opiates Screen (NotDetected) Ur Oxycodone Screen (NotDetected) Assessment and Plan (1) History of infection due to ESBL Escherichia coli Current Visit: Yes Status: Acute Code(s): Z86.19 - PERSONAL HISTORY OF OTHER INFECTIOUS AND PARASITIC DISEASES SNOMED Code(s): 939673379 (2) Allergy to cephalosporin Current Visit: Yes Status: Acute Code(s): Z88.1 - ALLERGY STATUS TO OTHER ANTIBIOTIC AGENTS SNOMED Code(s): 640534093 (3) Altered mental status Current Visit: Yes Status: Acute Code(s): R41.82 - ALTERED MENTAL STATUS, UNSPECIFIED SNOMED Code(s): 205186977 (4) UTI (urinary tract infection) Current Visit: Yes Status: Acute Code(s): N39.0 - URINARY TRACT INFECTION, SITE NOT SPECIFIED SNOMED Code(s): 16099003 Plan: 1patient presented hospital with mental status changes. The patient was found to be on the floor in front of her couch and there was a question of possible seizure activity patient apparently was diagnosed with UTI the day prior and will treat the patient and receive an antibiotic for it patient is a dialysis patient however still making urine has been complaining of burning frequency and did have suprapubic tenderness concerning for symptomatic urinary tract infection likely from prior gram-negative pathogen 2-patient with cefuroxime allergy 3-patient empirically treated with meropenem while waiting for the culture to be finalized We will follow on clinical condition and cultures to further adjust medication if needed Thank you for this consultation we will follow the patient along with you Dictation was produced using [employer] dictation software. please excuse any grammatical, word or spelling errors. Time with Patient: Greater than 30
[2024-09-02 00:11] LABS: Glucose,Whole Blood 58 mg/dL (70-110)
[2024-09-02] MEDS ORDERED: DEXTROSE 50% SYRINGE 50 ML IVP PRN (00:12)
[2024-09-02] MEDS: DEXTROSE 50% SYRINGE 50 ML IVP PRN (00:19)
[2024-09-02 05:28] LABS: Glucose,Whole Blood 69 mg/dL (70-110)
[2024-09-02 05:48] LABS: HCT 29.6 % (37.2-46.3); HGB 9.3 g/dL (12.0-15.0); MCH 32.3 pg (27.0-32.0); MCHC 31.4 g/dL (32.0-37.0); MCV 102.8 fL (80.0-97.0); Platelet Count 243 10*3/uL (140-440); RBC 2.88 10*6/uL (4.10-5.20); RDW 15.2 % (11.5-14.5); WBC 7.07 10*3/uL (4.50-10.00)
[2024-09-02 05:59] LABS: African American GFR (CKD) 12 (>60 ml/min/1.73 sqM); Anion Gap 8 mmol/L; Blood Urea Nitrogen 25 mg/dL (7-17); Calcium 8.5 mg/dL (8.4-10.2); Carbon Dioxide 31 mmol/L (22-30); Chloride 94 mmol/L (98-107); Glucose 74 mg/dL (74-99); Non-African American GFR(CKD) 10 (>60 ml/min/1.73 sqM); Potassium 4.2 mmol/L (3.5-5.1); Sodium 133 mmol/L (137-145)
[2024-09-02 06:06] LABS: Glucose,Whole Blood 130 mg/dL (70-110)
[2024-09-02] MEDS: LORazepam 1 MG/0.5 ML VIAL IV STA (07:50)
[2024-09-02] MEDS: levETIRAcetam IV 500 MG/5 ML VIAL IVP SCH (08:22)
--- NOTE | 2024-09-02 10:59 | P.PN ---
Subjective Patient is seen for follow-up for end-stage renal disease. No further seizures noted EEG showed epileptiform spike. Status post hemodialysis yesterday Patient is awake comfortable she is slow to respond and was oriented x 2 this morning but overall mentation is better than yesterday. Objective - Vital Signs Vital signs: Vital Signs Temp 98.0 F 09/02/24 08:00 Pulse 66 09/02/24 10:00 Resp 10 L 09/02/24 10:00 BP 123/55 09/02/24 10:00 Pulse Ox 100 09/02/24 10:00 FiO2 Intake & Output 09/01/24 09/02/24 09/02/24 18:59 06:59 18:59 Intake Total 960 0 200 Output Total 3500 45 5 Balance -2540 -45 195 Weight 95 kg Intake: IV 460 0 KVO 70 0 Lactated Ringers 1,000 ml 390 @ 130 mls/hr IV .Q7H42M [facility] Rx#:[id number] Oral 200 Hemodialysis 500 Output: Urine 0 45 5 Hemodialysis 2000 Hemodialysis Net Amount 1500 Other: Voiding Method Diaper External Catheter Incontinent # Voids 1 - Exam Patient is awake, comfortable, no acute distress Oriented x 2 Examination of the heart S1 and S2 Examination of the lungs shows bilateral breath sounds are heard with decreased breath sounds at the bases Abdomen is soft nontender Examination of lower extremity shows trace edema bilaterally [employer] exam shows patient is moving all 4 extremities. - Labs CBC & Chem 7: 09/02/24 05:29 09/02/24 05:29 Labs: Abnormal Lab Results - Last 24 Hours (Table) 09/02/24 09/02/24 09/02/24 Range/Units 00:09 05:26 05:29 RBC 2.88 L (4.10-5.20) 10*6/uL Hgb 9.3 L (12.0-15.0) g/dL Hct 29.6 L (37.2-46.3) % MCV 102.8 H (80.0-97.0) fL MCH 32.3 H (27.0-32.0) pg MCHC 31.4 L (32.0-37.0) g/dL MPV 8.7 L (9.5-12.2) fL Sodium (137-145) mmol/L Chloride (98-107) mmol/L Carbon Dioxide (22-30) mmol/L BUN (7-17) mg/dL Creatinine (0.52-1.04) mg/dL POC Glucose (mg/dL) 58 L 69 L (70-110) mg/dL 09/02/24 09/02/24 Range/Units 05:29 06:05 RBC (4.10-5.20) 10*6/uL Hgb (12.0-15.0) g/dL Hct (37.2-46.3) % MCV (80.0-97.0) fL MCH (27.0-32.0) pg MCHC (32.0-37.0) g/dL MPV (9.5-12.2) fL Sodium 133 L (137-145) mmol/L Chloride 94 L (98-107) mmol/L Carbon Dioxide 31 H (22-30) mmol/L BUN 25 H (7-17) mg/dL Creatinine 3.91 H (0.52-1.04) mg/dL POC Glucose (mg/dL) 130 H (70-110) mg/dL Microbiology - Last 24 Hours (Table) 08/31/24 10:56 Urine Culture - Final Urine,Voided 08/31/24 13:29 Blood Culture - Preliminary Blood Assessment and Plan Assessment: 1. End-stage renal disease on hemodialysis on Sunday schedule 2. Mental status changes secondary to postictal state with new onset seizures 3. New onset seizures, neurology has been consulted 4. CKD mineral bone disorder Plan: Hemodialysis in a.m. UF 1 to 2 L Antiepileptic medications as per neurology
[2024-09-02 12:03] LABS: Glucose,Whole Blood 75 mg/dL (70-110)
--- NOTE | 2024-09-02 12:51 | P.PN ---
Subjective Progress Note Date: 09/02/24 Principal diagnosis: New onset seizures and altered mental status This is a 79-year-old female brought into the ER yesterday with altered mental status. Patient was found on the ground in front of the couch at home. Apparently the patient was in the ER the day prior for UTI which was diagnosed in the ER and the patient was initiated on antibiotics. Patient came back to the ER within 24 hours now the patient was found to be confused altered mental status, and apparently she was initially admitted to the medical floor. This morning the patient was transferred to the ICU because of witnessed seizures. Patient was found on the floor to be minimally responsive and there was a concern about acute CVA. CT of the head was negative and shortly after she arrived to the ICU patient was noted to have tonic-clonic seizure activity loaded with Keppra, neurology consultation is pending and the patient will be maintained on Keppra. I saw the patient in the ICU, she seems to be confused, postictal, but not having any seizures activity during my evaluation. She seems to be arousable. But tends to fall asleep shortly after. ABG this morning showed a pO2 of 93 pCO2 46 pH of 7.37 and this was on room air. Labs today showed relatively normal CBC except for hemoglobin 9.7 potassium was 5.5, bicarb 23 BUN 35 creatinine 5.17, blood sugar was 87. Patient was seen by nephrology and the patient is known to have end-stage renal disease on hemodialysis Sunday and Sunday. Patient will be hemodialyzed today IV fluid presently at [facility]. And antiepileptic medications was started. Patient was seen today on 09/02/2024, remains in the ICU, no witnessed seizure activity since yesterday, however on the EEG there was evidence of spiking patient received Ativan remains on Keppra. Being followed by neurology and other consultants including infectious disease, and internal medicine. Neurology input was appreciated, felt that the patient had new onset seizures probably secondary generalized tonic-clonic seizure and she has history of right-sided craniotomy for brain bleed, patient was seen by nephrology for her end-stage renal disease, on hemodialysis. And she does have history of bladder cancer. In addition to this the patient was found to have soft tissue mass associated with the right aspect of the rectum with pathologically enlarged right pelvic sidewall and right iliac chain adenopathy suspicious for malignancy. Patient was seen by orthopedics for left hip pain, recommended CT of pelvis. WBC count today is 7.0 hemoglobin 9.3 electrolytes are normal BUN is 25 creatinine 3.91. Blood sugar is 69. Objective - Vital Signs Vital signs: Vital Signs Temp 98.0 F 09/02/24 08:00 Pulse 66 09/02/24 10:00 Resp 10 L 09/02/24 10:00 BP 123/55 09/02/24 10:00 Pulse Ox 100 09/02/24 10:00 FiO2 Intake & Output 09/01/24 09/02/24 09/02/24 18:59 06:59 18:59 Intake Total 960 0 200 Output Total 3500 45 5 Balance -2540 -45 195 Weight 95 kg Intake: IV 460 0 KVO 70 0 Lactated Ringers 1,000 ml 390 @ 130 mls/hr IV .Q7H42M [facility] Rx#:[id number] Oral 200 Hemodialysis 500 Output: Urine 0 45 5 Hemodialysis 2000 Hemodialysis Net Amount 1500 Other: Voiding Method Diaper External Catheter Incontinent # Voids 1 - Exam General: Revealed a 79-year-old female lethargic but arousable. HEAD: Normal with no signs of head trauma. Negative Butt sign. Negative raccoon eyes. EYES: PERRLA, EOMI, conjunctiva normal, no discharge. Pupils are 2 mm and equal bilaterally. ENT: Dry mucous membranes otherwise negative. RESPIRATORY: Clear bilaterally no rhonchi no wheezes C/V: Distant S1-S2, no S3 gallop. No murmur. ABD: Soft nontender no rebound no guarding EXT: No clubbing edema or cyanosis SKIN: No rashes or lesions observed on exposed skin. NEURO: Lethargic, but arousable, follows simple instructions but tends to fall asleep easily - Labs CBC & Chem 7: 09/02/24 05:29 09/02/24 05:29 Labs: Abnormal Lab Results - Last 24 Hours (Table) 09/02/24 09/02/24 09/02/24 Range/Units 00:09 05:26 05:29 RBC 2.88 L (4.10-5.20) 10*6/uL Hgb 9.3 L (12.0-15.0) g/dL Hct 29.6 L (37.2-46.3) % MCV 102.8 H (80.0-97.0) fL MCH 32.3 H (27.0-32.0) pg MCHC 31.4 L (32.0-37.0) g/dL MPV 8.7 L (9.5-12.2) fL Sodium (137-145) mmol/L Chloride (98-107) mmol/L Carbon Dioxide (22-30) mmol/L BUN (7-17) mg/dL Creatinine (0.52-1.04) mg/dL POC Glucose (mg/dL) 58 L 69 L (70-110) mg/dL 09/02/24 09/02/24 Range/Units 05:29 06:05 RBC (4.10-5.20) 10*6/uL Hgb (12.0-15.0) g/dL Hct (37.2-46.3) % MCV (80.0-97.0) fL MCH (27.0-32.0) pg MCHC (32.0-37.0) g/dL MPV (9.5-12.2) fL Sodium 133 L (137-145) mmol/L Chloride 94 L (98-107) mmol/L Carbon Dioxide 31 H (22-30) mmol/L BUN 25 H (7-17) mg/dL Creatinine 3.91 H (0.52-1.04) mg/dL POC Glucose (mg/dL) 130 H (70-110) mg/dL Microbiology - Last 24 Hours (Table) 08/31/24 10:56 Urine Culture - Final Urine,Voided 08/31/24 13:29 Blood Culture - Preliminary Blood Assessment and Plan Assessment: Impression: New onset seizures Postictal confusion and altered mental status Altered mental status secondary to above Acute urinary tract infection Chronic kidney disease, on hemodialysis Underlying COPD, inactive History of bladder cancer Anemia of chronic disease Benign essential hypertension Acute metabolic encephalopathy secondary to above History of degenerative joint disease Recommendation: Continue to monitor in the ICU Continue seizure precautions Continue Keppra Continue GI and DVT prophylaxis Continue [facility] is following for her usual hemodialysis. Will continue to monitor in the ICU for the next 24 hours and hopefully if no seizure activities in the next 24 hours we can transfer to medical surgical floor. Will continue to follow. Time with Patient: Less than 30
--- NOTE | 2024-09-02 14:41 | P.PN ---
Subjective Progress Note Date: 09/02/24 Principal diagnosis: Reason for follow-up is UTI Patient is a 79-year-old female with a past medical history significant for Asthma, Cancer, COPD, Dialysis, Hyperlipidemia, Hypertension, Myocardial Infarction ([place]), Osteoarthritis (OA), Pneumonia, Renal Disease, Thyroid Disorder, uterine cancer end-stage renal disease on hemodialysis still makes urine presenting to the hospital after the patient was found to be unresponsive there was concern for possible seizure activity patient did have a positive for some urinary symptoms concerning for UTI prompting this consul tation. On today's evaluation that is 09/02/2024, Patient is afebrile this morning patient is more awake and alert denies having any chest pain shortness of breath or cough, the patient is currently on 2 L nasal cannula oxygen, patient denies any abdominal pain no diarrhea no nausea no vomiting. Patient white count 7.07 creatinine 3.9,Urine culture so far negative blood culture negative Objective - Vital Signs Vital signs: Vital Signs Temp 98.0 F 09/02/24 12:00 Pulse 87 09/02/24 14:00 Resp 17 09/02/24 14:00 BP 113/50 09/02/24 14:00 Pulse Ox 99 09/02/24 14:00 FiO2 Intake & Output 09/01/24 09/02/24 09/02/24 18:59 06:59 18:59 Intake Total 960 0 1130 Output Total 3500 45 10 Balance -2540 -45 1120 Weight 95 kg Intake: IV 460 0 100 KVO 70 0 Lactated Ringers 1,000 ml 390 @ 130 mls/hr IV .Q7H42M [facility] Rx#:[id number] Meropenem 1 gm In Sodium 100 Chloride 0.9% 100 ml @ 33 .3 mls/hr IVPB Q24H [facility] Rx#:[id number] Oral 1030 Hemodialysis 500 Output: Urine 0 45 10 Hemodialysis 2000 Hemodialysis Net Amount 1500 Other: Voiding Method Diaper External Catheter Incontinent # Voids 1 - Exam GENERAL DESCRIPTION: An elderly female lying in bed in no distress RESPIRATORY SYSTEM: Unlabored breathing , decreased breath sounds at bases HEART: S1 S2 regular rate and rhythm , ABDOMEN: Soft , no tenderness EXTREMITIES: No edema feet - Labs CBC & Chem 7: 09/02/24 05:29 09/02/24 05:29 Labs: Abnormal Lab Results - Last 24 Hours (Table) 09/02/24 09/02/24 09/02/24 Range/Units 00:09 05:26 05:29 RBC 2.88 L (4.10-5.20) 10*6/uL Hgb 9.3 L (12.0-15.0) g/dL Hct 29.6 L (37.2-46.3) % MCV 102.8 H (80.0-97.0) fL MCH 32.3 H (27.0-32.0) pg MCHC 31.4 L (32.0-37.0) g/dL MPV 8.7 L (9.5-12.2) fL Sodium (137-145) mmol/L Chloride (98-107) mmol/L Carbon Dioxide (22-30) mmol/L BUN (7-17) mg/dL Creatinine (0.52-1.04) mg/dL POC Glucose (mg/dL) 58 L 69 L (70-110) mg/dL 09/02/24 09/02/24 Range/Units 05:29 06:05 RBC (4.10-5.20) 10*6/uL Hgb (12.0-15.0) g/dL Hct (37.2-46.3) % MCV (80.0-97.0) fL MCH (27.0-32.0) pg MCHC (32.0-37.0) g/dL MPV (9.5-12.2) fL Sodium 133 L (137-145) mmol/L Chloride 94 L (98-107) mmol/L Carbon Dioxide 31 H (22-30) mmol/L BUN 25 H (7-17) mg/dL Creatinine 3.91 H (0.52-1.04) mg/dL POC Glucose (mg/dL) 130 H (70-110) mg/dL Microbiology - Last 24 Hours (Table) 08/31/24 10:56 Urine Culture - Final Urine,Voided 08/31/24 13:29 Blood Culture - Preliminary Blood Assessment and Plan (1) History of infection due to ESBL Escherichia coli Current Visit: Yes Status: Acute Code(s): Z86.19 - PERSONAL HISTORY OF OTHER INFECTIOUS AND PARASITIC DISEASES SNOMED Code(s): 951976251 (2) Allergy to cephalosporin Current Visit: Yes Status: Acute Code(s): Z88.1 - ALLERGY STATUS TO OTHER ANTIBIOTIC AGENTS SNOMED Code(s): 307767528 (3) Altered mental status Current Visit: Yes Status: Acute Code(s): R41.82 - ALTERED MENTAL STATUS, UNSPECIFIED SNOMED Code(s): 310584423 (4) UTI (urinary tract infection) Current Visit: Yes Status: Acute Code(s): N39.0 - URINARY TRACT INFECTION, SITE NOT SPECIFIED SNOMED Code(s): 56244301 Plan: 1patient presented hospital with mental status changes. The patient was found to be on the floor in front of her couch and there was a question of possible seizure activity patient apparently was diagnosed with UTI the day prior and will treat the patient and receive an antibiotic for it patient is a dialysis patient however still making urine has been complaining of burning frequency and did have suprapubic tenderness concerning for symptomatic urinary tract infection likely from prior gram-negative pathogen 2-patient with cefuroxime allergy 3-patient did have some clinical improvement culture have been negative so far if remains remain negative will consider discontinue meropenem after 3-day course for possible cystitis Dictation was produced using [employer] dictation software. please excuse any grammatical, word or spelling errors. Time with Patient: Less than 30
[2024-09-02 16:43] LABS: Glucose,Whole Blood 72 mg/dL (70-110)
[2024-09-02 19:40] LABS: Glucose,Whole Blood 80 mg/dL (70-110)
[2024-09-02 23:01] LABS: Glucose,Whole Blood 102 mg/dL (70-110)
[2024-09-03] MEDS: LORazepam 1 MG/0.5 ML VIAL IV STA (00:16)
[2024-09-03 05:30] LABS: Glucose,Whole Blood 155 mg/dL (70-110)
[2024-09-03 05:50] LABS: Basophils # (A) 0.01 10*3/uL (0.00-0.10); Basophils % (A) 0.1 %; Eosinophils # (A) 0.10 10*3/uL (0.04-0.35); Eosinophils % (A) 1.1 %; HCT 30.9 % (37.2-46.3); HGB 9.8 g/dL (12.0-15.0); Lymphocytes # (A) 1.63 10*3/uL (0.90-5.00); Lymphocytes % (A) 18.1 %; MCH 32.3 pg (27.0-32.0); MCHC 31.7 g/dL (32.0-37.0); MCV 102.0 fL (80.0-97.0); Monocytes # (A) 0.76 10*3/uL (0.20-1.00); Monocytes % (A) 8.4 %; Neutrophils # (A) 6.45 10*3/uL (1.80-7.70); Neutrophils % (A) 71.5 %; Platelet Count 211 10*3/uL (140-440); RBC 3.03 10*6/uL (4.10-5.20); RDW 15.4 % (11.5-14.5); WBC 9.02 10*3/uL (4.50-10.00)
[2024-09-03 06:22] LABS: African American GFR (CKD) 8 (>60 ml/min/1.73 sqM); Anion Gap 7 mmol/L; Blood Urea Nitrogen 36 mg/dL (7-17); Calcium 8.4 mg/dL (8.4-10.2); Carbon Dioxide 30 mmol/L (22-30); Chloride 94 mmol/L (98-107); Glucose 79 mg/dL (74-99); Non-African American GFR(CKD) 7 (>60 ml/min/1.73 sqM); Potassium 3.7 mmol/L (3.5-5.1); Sodium 131 mmol/L (137-145)
[2024-09-03] MEDS: POTASSIUM CHLORIDE 10 MEQ in WATER FOR INJECTION 1 100ML.BAG IVPB SCH (06:57)
[2024-09-03] MEDS: levETIRAcetam 500 MG TAB PO SCH (09:10)
[2024-09-03 10:31] VITALS: BMI 37.8
--- NOTE | 2024-09-03 11:41 | P.PN ---
Subjective Progress Note Date: 09/03/24 Principal diagnosis: New onset seizures and altered mental status This is a 79-year-old female brought into the ER yesterday with altered mental status. Patient was found on the ground in front of the couch at home. Apparently the patient was in the ER the day prior for UTI which was diagnosed in the ER and the patient was initiated on antibiotics. Patient came back to the ER within 24 hours now the patient was found to be confused altered mental status, and apparently she was initially admitted to the medical floor. This morning the patient was transferred to the ICU because of witnessed seizures. Patient was found on the floor to be minimally responsive and there was a concern about acute CVA. CT of the head was negative and shortly after she arrived to the ICU patient was noted to have tonic-clonic seizure activity loaded with Keppra, neurology consultation is pending and the patient will be maintained on Keppra. I saw the patient in the ICU, she seems to be confused, postictal, but not having any seizures activity during my evaluation. She seems to be arousable. But tends to fall asleep shortly after. ABG this morning showed a pO2 of 93 pCO2 46 pH of 7.37 and this was on room air. Labs today showed relatively normal CBC except for hemoglobin 9.7 potassium was 5.5, bicarb 23 BUN 35 creatinine 5.17, blood sugar was 87. Patient was seen by nephrology and the patient is known to have end-stage renal disease on hemodialysis Sunday and Sunday. Patient will be hemodialyzed today IV fluid presently at [facility]. And antiepileptic medications was started. Patient was seen today on 09/02/2024, remains in the ICU, no witnessed seizure activity since yesterday, however on the EEG there was evidence of spiking patient received Ativan remains on Keppra. Being followed by neurology and other consultants including infectious disease, and internal medicine. Neurology input was appreciated, felt that the patient had new onset seizures probably secondary generalized tonic-clonic seizure and she has history of right-sided craniotomy for brain bleed, patient was seen by nephrology for her end-stage renal disease, on hemodialysis. And she does have history of bladder cancer. In addition to this the patient was found to have soft tissue mass associated with the right aspect of the rectum with pathologically enlarged right pelvic sidewall and right iliac chain adenopathy suspicious for malignancy. Patient was seen by orthopedics for left hip pain, recommended CT of pelvis. WBC count today is 7.0 hemoglobin 9.3 electrolytes are normal BUN is 25 creatinine 3.91. Blood sugar is 69. Patient was seen today on 09/03/2024, seen on follow-up, patient remains in the ICU confused, no witnessed seizures over the last 24 hours, patient remains on Merrem for her ESBL/E. coli UTI remains on hemodialysis and she will likely be dialyzed today. Her IV fluid is at KVO patient is on room air, confused but not in any respiratory distress. She is hemodynamically stable. WBC count is 9 hemoglobin 9.8 electrolytes are normal BUN is 36 creatinine 5.18 blood sugar is 155. Calcium is 8.4. No major events over the last 24 hours and considering her relative improvement although she does have multiple complex issues I will transfer the patient out of the ICU to regular medical floor./Medical surgical floor. Patient is still being followed by many consultants including nephrology, infectious disease, orthopedics, and neurology. Objective - Vital Signs Vital signs: Vital Signs Temp 99.0 F 09/03/24 08:00 Pulse 96 09/03/24 09:00 Resp 18 09/03/24 09:00 BP 149/75 09/03/24 09:00 Pulse Ox 95 09/03/24 09:00 FiO2 Intake & Output 09/02/24 09/03/24 09/03/24 18:59 06:59 18:59 Intake Total 1130 440 Output Total 30 65 20 Balance 1100 -65 420 Weight 97 kg 97 kg Intake: IV 100 200 Meropenem 1 gm In Sodium 100 Chloride 0.9% 100 ml @ 33 .3 mls/hr IVPB Q24H [facility] Rx#:[id number] Potassium Chloride 10 meq 200 In Water For Injection 1 100ml.bag @ 100 mls/hr IVPB Q1H [facility] Rx#: [id number] Oral 1030 240 Output: Urine 30 65 20 Other: Voiding Method External Catheter External Catheter External Catheter - Exam General: Revealed a 79-year-old female lethargic but arousable. HEAD: Normal with no signs of head trauma. EYES: PERRLA, EOMI, conjunctiva normal, no discharge. Pupils are 2 mm and equal bilaterally. ENT: Dry mucous membranes otherwise negative. RESPIRATORY: Clear bilaterally no rhonchi no wheezes C/V: Distant S1-S2, no S3 gallop. No murmur. ABD: Soft nontender no rebound no guarding EXT: No clubbing edema or cyanosis SKIN: No rashes or lesions observed on exposed skin. NEURO: Confused, lethargic,, but arousable, follows simple instructions - Labs CBC & Chem 7: 09/03/24 05:36 09/03/24 05:36 Labs: Abnormal Lab Results - Last 24 Hours (Table) 09/03/24 09/03/24 09/03/24 Range/Units 05:29 05:36 05:36 RBC 3.03 L (4.10-5.20) 10*6/uL Hgb 9.8 L (12.0-15.0) g/dL Hct 30.9 L (37.2-46.3) % MCV 102.0 H (80.0-97.0) fL MCH 32.3 H (27.0-32.0) pg MCHC 31.7 L (32.0-37.0) g/dL MPV 8.1 L (9.5-12.2) fL Immature Gran # 0.07 H (0.00-0.04) 10*3/uL Sodium 131 L (137-145) mmol/L Chloride 94 L (98-107) mmol/L BUN 36 H (7-17) mg/dL Creatinine 5.18 H (0.52-1.04) mg/dL POC Glucose (mg/dL) 155 H (70-110) mg/dL Microbiology - Last 24 Hours (Table) 08/31/24 13:29 Blood Culture - Preliminary Blood 08/31/24 10:56 Urine Culture - Final Urine,Voided Assessment and Plan Assessment: Impression: New onset seizures Postictal confusion and altered mental status Altered mental status secondary to above History 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 Chronic kidney disease, on hemodialysis Underlying COPD, inactive History of bladder cancer Anemia of chronic disease Benign essential hypertension Acute metabolic encephalopathy secondary to above History of degenerative joint disease Recommendation: Transfer patient to medical surgical floor Continue seizure precautions Continue Keppra, seizure meds are being addressed by neurology in the case Continue GI and DVT prophylaxis Continue Merrem, this is being addressed by infectious disease on the case Nephrology is following for her usual hemodialysis. Will continue to follow. Time with Patient: Less than 30
--- NOTE | 2024-09-03 12:06 | P.PN ---
Subjective Patient is seen for follow-up for end-stage renal disease. No further seizures noted. Maintained on Keppra EEG showed epileptiform spike. Scheduled for hemodialysis today. Patient is awake comfortable she is slow to respond Objective - Vital Signs Vital signs: Vital Signs Temp 99.0 F 09/03/24 08:00 Pulse 96 09/03/24 09:00 Resp 18 09/03/24 09:00 BP 149/75 09/03/24 09:00 Pulse Ox 95 09/03/24 09:00 FiO2 Intake & Output 09/02/24 09/03/24 09/03/24 18:59 06:59 18:59 Intake Total 1130 440 Output Total 30 65 20 Balance 1100 -65 420 Weight 97 kg 97 kg Intake: IV 100 200 Meropenem 1 gm In Sodium 100 Chloride 0.9% 100 ml @ 33 .3 mls/hr IVPB Q24H [facility] Rx#:[id number] Potassium Chloride 10 meq 200 In Water For Injection 1 100ml.bag @ 100 mls/hr IVPB Q1H [facility] Rx#: [id number] Oral 1030 240 Output: Urine 30 65 20 Other: Voiding Method External Catheter External Catheter External Catheter - Exam Patient is awake, comfortable, no acute distress Oriented x 2 Examination of the heart S1 and S2 Examination of the lungs shows bilateral breath sounds are heard with decreased breath sounds at the bases Abdomen is soft nontender Examination of lower extremity shows trace edema bilaterally [employer] exam shows patient is moving all 4 extremities. - Labs CBC & Chem 7: 09/03/24 05:36 09/03/24 05:36 Labs: Abnormal Lab Results - Last 24 Hours (Table) 09/03/24 09/03/24 09/03/24 Range/Units 05:29 05:36 05:36 RBC 3.03 L (4.10-5.20) 10*6/uL Hgb 9.8 L (12.0-15.0) g/dL Hct 30.9 L (37.2-46.3) % MCV 102.0 H (80.0-97.0) fL MCH 32.3 H (27.0-32.0) pg MCHC 31.7 L (32.0-37.0) g/dL MPV 8.1 L (9.5-12.2) fL Immature Gran # 0.07 H (0.00-0.04) 10*3/uL Sodium 131 L (137-145) mmol/L Chloride 94 L (98-107) mmol/L BUN 36 H (7-17) mg/dL Creatinine 5.18 H (0.52-1.04) mg/dL POC Glucose (mg/dL) 155 H (70-110) mg/dL Microbiology - Last 24 Hours (Table) 08/31/24 13:29 Blood Culture - Preliminary Blood 08/31/24 10:56 Urine Culture - Final Urine,Voided Assessment and Plan Assessment: 1. End-stage renal disease on hemodialysis on Sunday schedule 2. Mental status changes secondary to postictal state with new onset seizures 3. New onset seizures, neurology has been consulted, maintained on Keppra 4. CKD mineral bone disorder Plan: Hemodialysis today UF 1 to 2 L Antiepileptic medications as per neurology
[2024-09-03 12:27] LABS: Glucose,Whole Blood 87 mg/dL (70-110)
--- NOTE | 2024-09-03 13:26 | P.PN ---
Subjective Progress Note Date: 09/02/24 Patient was seen for a follow-up. Patient is fully alert and awake, sitting in the bed. She states she is doing much better. No further seizures reported. Objective - Vital Signs Vital signs: Vital Signs Temp 98.4 F 09/02/24 16:00 Pulse 92 09/02/24 19:00 Resp 13 09/02/24 19:00 BP 94/58 09/02/24 19:00 Pulse Ox 93 L 09/02/24 19:00 FiO2 Intake & Output 09/02/24 09/02/24 09/03/24 06:59 18:59 06:59 Intake Total 0 1130 Output Total 45 30 0 Balance -45 1100 0 Weight 95 kg Intake: IV 0 100 KVO 0 Meropenem 1 gm In Sodium 100 Chloride 0.9% 100 ml @ 33 .3 mls/hr IVPB Q24H [facility] Rx#:[id number] Oral 1030 Output: Urine 45 30 0 Other: Voiding Method External Catheter - Exam Patient is very alert and awake. Patient knows her name and that it is August, but could not tell the year. She knows she is in the hospital, feels it is [facility] and that she is in [place] in [place]. I did reorient her. Speech and language functions are normal. No aphasia or dysarthria. Unclear examination pupils are equal, round and reacting, visual marlow are full with no neglect. Extraocular muscles are intact, face is symmetric. Tongue protrudes midline. On muscle strength testing the strength is normal in the arms except deltoid which is slightly weak 5-4+ on the right, 5-on the left. In the lower limbs hip flexion is 4+ and ankle dorsiflexion 5. Sensory to touch is equal. No ataxia for [id number] testing. - Labs CBC & Chem 7: 09/03/24 05:36 09/03/24 05:36 Labs: Abnormal Lab Results - Last 24 Hours (Table) 09/02/24 09/02/24 09/02/24 Range/Units 00:09 05:26 05:29 RBC 2.88 L (4.10-5.20) 10*6/uL Hgb 9.3 L (12.0-15.0) g/dL Hct 29.6 L (37.2-46.3) % MCV 102.8 H (80.0-97.0) fL MCH 32.3 H (27.0-32.0) pg MCHC 31.4 L (32.0-37.0) g/dL MPV 8.7 L (9.5-12.2) fL Sodium (137-145) mmol/L Chloride (98-107) mmol/L Carbon Dioxide (22-30) mmol/L BUN (7-17) mg/dL Creatinine (0.52-1.04) mg/dL POC Glucose (mg/dL) 58 L 69 L (70-110) mg/dL 09/02/24 09/02/24 Range/Units 05:29 06:05 RBC (4.10-5.20) 10*6/uL Hgb (12.0-15.0) g/dL Hct (37.2-46.3) % MCV (80.0-97.0) fL MCH (27.0-32.0) pg MCHC (32.0-37.0) g/dL MPV (9.5-12.2) fL Sodium 133 L (137-145) mmol/L Chloride 94 L (98-107) mmol/L Carbon Dioxide 31 H (22-30) mmol/L BUN 25 H (7-17) mg/dL Creatinine 3.91 H (0.52-1.04) mg/dL POC Glucose (mg/dL) 130 H (70-110) mg/dL Microbiology - Last 24 Hours (Table) 08/31/24 10:56 Urine Culture - Final Urine,Voided 08/31/24 13:29 Blood Culture - Preliminary Blood Assessment and Plan Assessment: * New onset seizures, probably secondary generalized tonic-clonic seizure. * History of right-sided craniotomy for "brain bleed". * ESRD, on hemodialysis * Altered mental status, likely due to toxic metabolic encephalopathy and from postictal state. * Acute UTI * Hypertension * Hyperlipidemia * Uterine cancer * Bladder cancer * Soft tissue mass associated with the right aspect of the rectum with pathologically enlarged right pelvic sidewall and right iliac chain adenopathy, highly suspicious for malignancy. Plan: * EEG performed today, and according to preliminary report showed background slowing of mild degree. No focal, lateralized or epileptiform activity was seen. * Patient started on Keppra 500 mg once daily for new onset seizure. Would recommend extra bolus of Keppra 250 mg postdialysis. We will switch from IV to oral Keppra. * CT of pelvis showed soft tissue mass associated with the right aspect of rectum with enlarged lymph nodes, concerning for rectal adenocarcinoma. Patient may need surgical and oncology consultations. Will defer to IM to address. * Other medical management as per IM and other specialties on board. * Patient is tolerating Keppra well. Offers no side effects. * Neurologically otherwise clear.
--- NOTE | 2024-09-03 16:52 | EEG ---
ELECTROENCEPHALOGRAM REPORT PREAMBLE: This is a 79-year-old female, who has possible new onset seizure. The patient has been started on Keppra. EEG FINDINGS: This is a 21-channel digital EEG recorded with video component, utilizing 10/20 international system with referential and bipolar montages. Background consists of well-developed, moderately well regulated, predominantly moderate to high amplitude 7 hertz theta activity seen in bihemispheric region. Background is posterior dominant and does not seem to be clearly reactive to eye opening or closing. Photic driving response was seen with some flash frequencies. Different stages of sleep were not seen. No focal or generalized epileptiform activity was seen. The patient did receive 1 mg Ativan in the middle of the study, without any changes in the background pattern before or after the study. IMPRESSION: This is an abnormal EEG due to background slowing, suggestive of mild encephalopathy. No focal, lateralized or epileptiform activity was seen. MMGONZALO / JUANN: [id number] /
[2024-09-03 17:03] LABS: Glucose,Whole Blood 74 mg/dL (70-110)
[2024-09-03] MEDS: levETIRAcetam 250 MG TAB PO STA (18:54)
[2024-09-03 19:41] LABS: Glucose,Whole Blood 151 mg/dL (70-110)
--- NOTE | 2024-09-03 23:47 | P.PN ---
Subjective Progress Note Date: 09/03/24 Patient was seen for a follow-up. Patient is fully alert and awake, laying in the bed. No seizures reported. Per sitter, patient has been some combative, jumping, forgetful. She is confused, some memory loss. Objective - Vital Signs Vital signs: Vital Signs Temp 97.6 F 09/03/24 14:00 Pulse 82 09/03/24 14:00 Resp 18 09/03/24 14:00 BP 122/92 09/03/24 14:00 Pulse Ox 98 09/03/24 14:00 FiO2 Intake & Output 09/03/24 09/03/24 09/04/24 06:59 18:59 06:59 Intake Total 540 Output Total 65 40 Balance -65 500 Weight 97 kg 97 kg Intake: IV 300 Meropenem 1 gm In Sodium 100 Chloride 0.9% 100 ml @ 33 .3 mls/hr IVPB Q24H [facility] Rx#:[id number] Potassium Chloride 10 meq 200 In Water For Injection 1 100ml.bag @ 100 mls/hr IVPB Q1H [facility] Rx#: [id number] Oral 240 Output: Urine 65 40 Other: Voiding Method External Catheter External Catheter - Exam Patient is very alert and awake. Patient knows her name and states it is August 08. She believes that she is in residential conventional home. She does that she is in [facility]. Speech and language functions are normal. No aphasia or dysarthria. Cranial nerve examination pupils are equal, round and reacting, visual marlow are full with no neglect. Extraocular muscles are intact, face is symmetric. Tongue protrudes midline. On muscle strength testing the strength is normal in the arms except deltoid which is slightly weak 5-4+ on the right, 5-on the left. In the lower limbs hip flexion is 4+ and ankle dorsiflexion 5. Sensory to touch is equal. No ataxia for [id number] testing. - Labs CBC & Chem 7: 09/03/24 05:36 09/03/24 05:36 Labs: Abnormal Lab Results - Last 24 Hours (Table) 09/03/24 09/03/24 09/03/24 Range/Units 05:29 05:36 05:36 RBC 3.03 L (4.10-5.20) 10*6/uL Hgb 9.8 L (12.0-15.0) g/dL Hct 30.9 L (37.2-46.3) % MCV 102.0 H (80.0-97.0) fL MCH 32.3 H (27.0-32.0) pg MCHC 31.7 L (32.0-37.0) g/dL MPV 8.1 L (9.5-12.2) fL Immature Gran # 0.07 H (0.00-0.04) 10*3/uL Sodium 131 L (137-145) mmol/L Chloride 94 L (98-107) mmol/L BUN 36 H (7-17) mg/dL Creatinine 5.18 H (0.52-1.04) mg/dL POC Glucose (mg/dL) 155 H (70-110) mg/dL 09/03/24 Range/Units 19:39 RBC (4.10-5.20) 10*6/uL Hgb (12.0-15.0) g/dL Hct (37.2-46.3) % MCV (80.0-97.0) fL MCH (27.0-32.0) pg MCHC (32.0-37.0) g/dL MPV (9.5-12.2) fL Immature Gran # (0.00-0.04) 10*3/uL Sodium (137-145) mmol/L Chloride (98-107) mmol/L BUN (7-17) mg/dL Creatinine (0.52-1.04) mg/dL POC Glucose (mg/dL) 151 H (70-110) mg/dL Microbiology - Last 24 Hours (Table) 08/31/24 13:29 Blood Culture - Preliminary Blood Assessment and Plan Assessment: * New onset seizures, probably secondary generalized tonic-clonic seizure. * History of right-sided craniotomy for "brain bleed". * ESRD, on hemodialysis * Altered mental status, likely due to toxic metabolic encephalopathy and from postictal state. * Acute UTI * Macrocytic anemia * Hypertension * Hyperlipidemia * Uterine cancer * Bladder cancer * History of B12 deficiency * Soft tissue mass associated with the right aspect of the rectum with pathologically enlarged right pelvic sidewall and right iliac chain adenopathy, highly suspicious for malignancy. Plan: * EEG abnormal due to background slowing, suggestive of mild encephalopathy. No focal, lateralized or epileptiform activity was seen. * Patient started on Keppra 500 mg once daily for new onset seizure. Would recommend extra bolus of Keppra 250 mg postdialysis. We will switch from IV to oral Keppra. * CT of pelvis showed soft tissue mass associated with the right aspect of rectum with enlarged lymph nodes, concerning for rectal adenocarcinoma. Also revealed circumferential urinary bladder with wall thickening with adjacent perivascular stranding. Recommend clinical correlation with UA for cystitis. Patient may need surgical and oncology consultations. Will defer to IM to address. * Carotid Doppler from 06/26/2024 revealed slightly elevated velocities bilaterally without significant atherosclerotic narrowing seen. This may be due to underlying hypertension. No hemodynamically significant internal carotid artery stenosis on either side. Antegrade flow in both vertebral arteries. No need to repeat. * 2D echo from 05/06/2024 revealed normal LV size and systolic function. Mildly increased posterior wall thickness. No obvious regional wall motion abnormalities. Severely increased left atrial volume. Mild to moderate . * Consider starting aspirin 81 mg. * Other medical management as per IM and other specialties on board. * Patient is tolerating Keppra well. Uncertain if mental confusion is related to Keppra. We will observe. * Check B12, folate, MMA, A1c and TSH. * Lipid panel with cholesterol 134, LDL 57, HDL 63, triglycerides 64. Lipids are well-controlled. * Avoid opiates, sedatives hypnotics. * DVT prophylaxis: Patient on Lovenox 30 mg subcu daily.
[2024-09-04 00:01] LABS: Glucose,Whole Blood 85 mg/dL (70-110)
[2024-09-04 06:45] LABS: Glucose,Whole Blood 72 mg/dL (70-110)
[2024-09-04 10:51] LABS: Vitamin B12 626.0 pg/mL (200.0-944.0)
[2024-09-04 11:07] LABS: Basophils # (A) 0.03 X 10*3/uL (0.00-0.10); Basophils % (A) 0.4 %; Eosinophils # (A) 0.13 X 10*3/uL (0.04-0.35); Eosinophils % (A) 1.9 %; HCT 31.8 % (37.2-46.3); HGB 9.8 g/dL (12.0-15.0); Immature Grans, Automated 1.60 %; Lymphocytes # (A) 1.14 X 10*3/uL (0.90-5.00); Lymphocytes % (A) 16.6 %; MCH 31.9 pg (27.0-32.0); MCHC 30.8 g/dL (32.0-37.0); MCV 103.6 FL (80.0-97.0); Monocytes # (A) 0.57 X 10*3/uL (0.20-1.00); Monocytes % (A) 8.3 %; NRBC Per 100 WBC 0 X 10*3/uL (0.00-0.01); Neutrophils # (A) 4.89 X 10*3/uL (1.80-7.70); Neutrophils % (A) 71.2 %; Platelet Count 213 X 10*3/uL (140-440); RBC 3.07 X 10*6/uL (4.10-5.20); RDW 15.6 % (11.5-14.5); WBC 6.87 X 10*3/uL (4.50-10.00)
--- NOTE | 2024-09-04 11:45 | P.PN ---
Subjective Progress Note Date: 09/04/24 This is a 79-year-old female brought into the ER yesterday with altered mental status. Patient was found on the ground in front of the couch at home. Apparently the patient was in the ER the day prior for UTI which was diagnosed in the ER and the patient was initiated on antibiotics. Patient came back to the ER within 24 hours now the patient was found to be confused altered mental status, and apparently she was initially admitted to the medical floor. This morning the patient was transferred to the ICU because of witnessed seizures. Patient was found on the floor to be minimally responsive and there was a concern about acute CVA. CT of the head was negative and shortly after she arrived to the ICU patient was noted to have tonic-clonic seizure activity loaded with Keppra, neurology consultation is pending and the patient will be maintained on Keppra. I saw the patient in the ICU, she seems to be confused, postictal, but not having any seizures activity during my evaluation. She seems to be arousable. But tends to fall asleep shortly after. ABG this morning showed a pO2 of 93 pCO2 46 pH of 7.37 and this was on room air. Labs today showed relatively normal CBC except for hemoglobin 9.7 potassium was 5.5, bicarb 23 BUN 35 creatinine 5.17, blood sugar was 87. Patient was seen by nephrology and the patient is known to have end-stage renal disease on hemodialysis Sunday and Sunday. Patient will be hemodialyzed today IV fluid presently at KVO. And antiepileptic medications was started. Patient was seen today on 09/02/2024, remains in the ICU, no witnessed seizure activity since yesterday, however on the EEG there was evidence of spiking patient received Ativan remains on Keppra. Being followed by neurology and other consultants including infectious disease, and internal medicine. Neurology input was appreciated, felt that the patient had new onset seizures probably secondary generalized tonic-clonic seizure and she has history of right-sided craniotomy for brain bleed, patient was seen by nephrology for her end-stage renal disease, on hemodialysis. And she does have history of bladder cancer. In addition to this the patient was found to have soft tissue mass associated with the right aspect of the rectum with pathologically enlarged right pelvic sidewall and right iliac chain adenopathy suspicious for malignancy. Patient was seen by orthopedics for left hip pain, recommended CT of pelvis. WBC count today is 7.0 hemoglobin 9.3 electrolytes are normal BUN is 25 creatinine 3.91. Blood sugar is 69. Patient was seen today on 09/03/2024, seen on follow-up, patient remains in the ICU confused, no witnessed seizures over the last 24 hours, patient remains on Merrem for her ESBL/E. coli UTI remains on hemodialysis and she will likely be d ialyzed today. Her IV fluid is at KVO patient is on room air, confused but not in any respiratory distress. She is hemodynamically stable. WBC count is 9 hemoglobin 9.8 electrolytes are normal BUN is 36 creatinine 5.18 blood sugar is 155. Calcium is 8.4. No major events over the last 24 hours and considering her relative improvement although she does have multiple complex issues I will transfer the patient out of the ICU to regular medical floor./Medical surgical floor. Patient is still being followed by many consultants including nephrology, infectious disease, orthopedics, and neurology. The patient is seen today September 04, 2024 in follow-up on the regular medical floor. She was transferred out of the intensive care unit yesterday. She is actually awake and alert in no acute distress. Maintaining good O2 saturations in the mid to upper 90s on room air oxygen. She has been afebrile. Hemodynamically stable. Urine culture revealed no growth. Blood culture revealed no growth. White count 6.8. Hemoglobin 9.8. Platelets 213. Hemoglobin A1c 4.9. Glucose 72. She remains on meropenem. Continued on Keppra. No further seizure activity. Lovenox for DVT prophylaxis. Objective - Vital Signs Vital signs: Vital Signs Temp 98.4 F 09/04/24 08:00 Pulse 98 09/04/24 08:00 Resp 17 09/04/24 08:00 BP 138/63 09/04/24 08:00 Pulse Ox 98 09/04/24 08:00 FiO2 Intake & Output 09/03/24 09/04/24 09/04/24 18:59 06:59 18:59 Intake Total 1040 Output Total 3540 Balance -2500 Weight 97 kg Intake: IV 300 Meropenem 1 gm In Sodium 100 Chloride 0.9% 100 ml @ 33 .3 mls/hr IVPB Q24H [facility] Rx#:[id number] Potassium Chloride 10 meq 200 In Water For Injection 1 100ml.bag @ 100 mls/hr IVPB Q1H [facility] Rx#: [id number] Oral 240 Hemodialysis 500 Output: Urine 40 Hemodialysis 2000 Hemodialysis Net Amount 1500 Other: Voiding Method External Catheter External Catheter External Catheter # Voids 0 # Bowel Movements 0 - Exam GENERAL EXAM: Alert, 79-year-old female, on room air oxygen, comfortable in no apparent distress. HEAD: Normocephalic. EYES: Normal reaction of pupils, equal size. NOSE: Clear with pink turbinates. THROAT: No erythema or exudates. NECK: No masses, no JVD. CHEST: No chest wall deformity. LUNGS: Equal air entry with no crackles, wheeze, rhonchi or dullness. CVS: S1 and S2 normal with no audible murmur, regular rhythm. ABDOMEN: No hepatosplenomegaly, normal bowel sounds, no guarding or rigidity. SPINE: No scoliosis or deformity SKIN: No rashes CENTRAL NERVOUS SYSTEM: No focal deficits, tone is normal in all 4 extremities. EXTREMITIES: There is no peripheral edema. No clubbing, no cyanosis. Peripheral pulses are intact. - Labs CBC & Chem 7: 09/04/24 06:41 09/03/24 05:36 Labs: Abnormal Lab Results - Last 24 Hours (Table) 09/03/24 09/04/24 09/04/24 Range/Units 19:39 06:41 06:41 RBC 3.07 L (4.10-5.20) X 10*6/uL Hgb 9.8 L (12.0-15.0) g/dL Hct 31.8 L (37.2-46.3) % MCV 103.6 H (80.0-97.0) FL MCHC 30.8 L (32.0-37.0) g/dL RDW 15.6 H (11.5-14.5) % MPV 9.1 L (9.5-12.2) FL Immature Gran # 0.11 H (0.00-0.04) X 10*3/uL POC Glucose (mg/dL) 151 H (70-110) mg/dL TSH 6.060 H (0.350-5.500) UIU/ML Microbiology - Last 24 Hours (Table) 08/31/24 13:29 Blood Culture - Preliminary Blood Assessment and Plan Assessment: New onset seizures Postictal confusion and altered mental status Altered mental status secondary to above, improved History 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 Chronic kidney disease, on hemodialysis Underlying COPD, inactive History of bladder cancer Anemia of chronic disease Benign essential hypertension Acute metabolic encephalopathy secondary to above History of degenerative joint disease Plan: The patient was seen and evaluated Labs and medications reviewed No further seizure activity Remains on Keppra Lovenox for DVT prophylaxis Blood and urine cultures revealed no growth Continued on meropenem per ID service Hemodialysis per nephrology Stable on room air oxygen Home once cleared by neurology I have personally seen and examined the patient, performed the documentation and the assessment and plan as written. Number of minutes spent on the visit: 10. Dictation was produced using [employer] dictation software. Please excuse any grammatical, word or spelling errors.
[2024-09-04 12:06] LABS: Glucose,Whole Blood 86 mg/dL (70-110)
--- NOTE | 2024-09-04 12:43 | P.PN ---
Subjective Patient is seen for follow-up for end-stage renal disease. No further seizures noted. Maintained on Keppra EEG showed epileptiform spike. Status post hemodialysis yesterday with UF of 1.5 L Patient is awake comfortable, sitter in place. Able to carry on a conversation appropriately. Objective - Vital Signs Vital signs: Vital Signs Temp 98.4 F 09/04/24 08:00 Pulse 98 09/04/24 08:00 Resp 17 09/04/24 08:00 BP 138/63 09/04/24 08:00 Pulse Ox 98 09/04/24 08:00 FiO2 Intake & Output 09/03/24 09/04/24 09/04/24 18:59 06:59 18:59 Intake Total 1040 Output Total 3540 Balance -2500 Weight 97 kg Intake: IV 300 Meropenem 1 gm In Sodium 100 Chloride 0.9% 100 ml @ 33 .3 mls/hr IVPB Q24H [facility] Rx#:[id number] Potassium Chloride 10 meq 200 In Water For Injection 1 100ml.bag @ 100 mls/hr IVPB Q1H [facility] Rx#: [id number] Oral 240 Hemodialysis 500 Output: Urine 40 Hemodialysis 2000 Hemodialysis Net Amount 1500 Other: Voiding Method External Catheter External Catheter External Catheter # Voids 0 1 # Bowel Movements 0 - Exam Patient is awake, comfortable, no acute distress Oriented x 2 Examination of the heart S1 and S2 Examination of the lungs shows bilateral breath sounds are heard with decreased breath sounds at the bases Abdomen is soft nontender Examination of lower extremity shows trace edema bilaterally [place] DRIED SALT exam shows patient is moving all 4 extremities. - Labs CBC & Chem 7: 09/04/24 06:41 09/03/24 05:36 Labs: Abnormal Lab Results - Last 24 Hours (Table) 09/03/24 09/04/24 09/04/24 Range/Units 19:39 06:41 06:41 RBC 3.07 L (4.10-5.20) X 10*6/uL Hgb 9.8 L (12.0-15.0) g/dL Hct 31.8 L (37.2-46.3) % MCV 103.6 H (80.0-97.0) FL MCHC 30.8 L (32.0-37.0) g/dL RDW 15.6 H (11.5-14.5) % MPV 9.1 L (9.5-12.2) FL Immature Gran # 0.11 H (0.00-0.04) X 10*3/uL POC Glucose (mg/dL) 151 H (70-110) mg/dL TSH 6.060 H (0.350-5.500) UIU/ML Microbiology - Last 24 Hours (Table) 08/31/24 13:29 Blood Culture - Preliminary Blood Assessment and Plan Assessment: 1. End-stage renal disease on hemodialysis on Sunday schedule 2. Mental status changes secondary to postictal state with new onset seizures 3. New onset seizures, neurology has been consulted, maintained on Keppra 4. CKD mineral bone disorder Plan: Hemodialysis in a.m. UF 1 to 2 L Antiepileptic medications as per neurology
--- NOTE | 2024-09-04 14:52 | P.PN ---
Subjective Progress Note Date: 09/03/24 Principal diagnosis: Reason for follow-up is UTI Patient is a 79-year-old female with a past medical history significant for Asthma, Cancer, COPD, Dialysis, Hyperlipidemia, Hypertension, Myocardial Infarction (ID), Osteoarthritis (OA), Pneumonia, Renal Disease, Thyroid Disorder, uterine cancer end-stage renal disease on hemodialysis still makes urine presenting to the hospital after the patient was found to be unresponsive there was concern for possible seizure activity patient did have a positive for some urinary symptoms concerning for UTI prompting this consul tation. On today's evaluation that is 09/03/2024,the patient denies any fever or any chills, patient is breathing comfortably on room air, the patient denies chest pain shortness of breath and no significant cough, patient denies abdominal pain, no nausea vomiting or diarrhea. Patient white count 9.02 creatinine is 1.18 Objective - Vital Signs Vital signs: Vital Signs Temp 98.0 F 09/03/24 14:00 Pulse 103 H 09/03/24 14:00 Resp 20 09/03/24 14:00 BP 110/55 09/03/24 14:00 Pulse Ox 93 L 09/03/24 14:00 FiO2 - Exam GENERAL DESCRIPTION: An elderly female lying in bed in no distress RESPIRATORY SYSTEM: Unlabored breathing , decreased breath sounds at bases HEART: S1 S2 regular rate and rhythm , ABDOMEN: Soft , no tenderness EXTREMITIES: No edema feet - Labs CBC & Chem 7: 09/04/24 06:41 09/03/24 05:36 Labs: Abnormal Lab Results - Last 24 Hours (Table) 09/03/24 09/04/24 09/04/24 Range/Units 19:39 06:41 06:41 RBC 3.07 L (4.10-5.20) X 10*6/uL Hgb 9.8 L (12.0-15.0) g/dL Hct 31.8 L (37.2-46.3) % MCV 103.6 H (80.0-97.0) FL MCHC 30.8 L (32.0-37.0) g/dL RDW 15.6 H (11.5-14.5) % MPV 9.1 L (9.5-12.2) FL Immature Gran # 0.11 H (0.00-0.04) X 10*3/uL POC Glucose (mg/dL) 151 H (70-110) mg/dL TSH 6.060 H (0.350-5.500) UIU/ML Microbiology - Last 24 Hours (Table) 08/31/24 13:29 Blood Culture - Preliminary Blood Assessment and Plan (1) History of infection due to ESBL Escherichia coli Current Visit: Yes Status: Acute Code(s): Z86.19 - PERSONAL HISTORY OF OTHER INFECTIOUS AND PARASITIC DISEASES SNOMED Code(s): 549280661 (2) Allergy to cephalosporin Current Visit: Yes Status: Acute Code(s): Z88.1 - ALLERGY STATUS TO OTHER ANTIBIOTIC AGENTS SNOMED Code(s): 214718303 (3) Altered mental status Current Visit: Yes Status: Acute Code(s): R41.82 - ALTERED MENTAL STATUS, UNSPECIFIED SNOMED Code(s): 616154239 (4) UTI (urinary tract infection) Current Visit: Yes Status: Acute Code(s): N39.0 - URINARY TRACT INFECTION, SITE NOT SPECIFIED SNOMED Code(s): 44256790 Plan: 1patient presented hospital with mental status changes. The patient was found to be on the floor in front of her couch and there was a question of possible seizure activity patient apparently was diagnosed with UTI the day prior and will treat the patient and receive an antibiotic for it patient is a dialysis patient however still making urine has been complaining of burning frequency and did have suprapubic tenderness concerning for symptomatic urinary tract infection likely from prior gram-negative pathogen 2-patient with cefuroxime allergy 3-patient did have some clinical improvement culture have been negative so far if remains remain negative will discontinue meropenem after 3-day course for possible cystitis Dictation was produced using [employer] software. please excuse any grammatical, word or spelling errors. Time with Patient: Less than 30
--- NOTE | 2024-09-04 14:53 | P.PN ---
Subjective Progress Note Date: 09/04/24 Principal diagnosis: Reason for follow-up is UTI Patient is a 79-year-old female with a past medical history significant for Asthma, Cancer, COPD, Dialysis, Hyperlipidemia, Hypertension, Myocardial Infarction ([place]), Osteoarthritis (OA), Pneumonia, Renal Disease, Thyroid Disorder, uterine cancer end-stage renal disease on hemodialysis still makes urine presenting to the hospital after the patient was found to be unresponsive there was concern for possible seizure activity patient did have a positive for some urinary symptoms concerning for UTI prompting this consul tation. On today's evaluation that is 09/04/2024,the patient remains to be afebrile, patient is on room air not requiring supplemental oxygen and mentioned breathing comfortably with no chest pain or cough.Patient denies having any nausea or vomiting, no abdominal pain and no diarrhea has been reported Patient white count 6.7 blood and urine culture have been negative Objective - Vital Signs Vital signs: Vital Signs Temp 98.0 F 09/04/24 14:14 Pulse 103 H 09/04/24 14:14 Resp 20 09/04/24 14:14 BP 110/55 09/04/24 14:14 Pulse Ox 93 L 09/04/24 14:14 FiO2 Intake & Output 09/03/24 09/04/24 09/04/24 18:59 06:59 18:59 Intake Total 1040 Output Total 3540 Balance -2500 Weight 97 kg Intake: IV 300 Meropenem 1 gm In Sodium 100 Chloride 0.9% 100 ml @ 33 .3 mls/hr IVPB Q24H [facility] Rx#:[id number] Potassium Chloride 10 meq 200 In Water For Injection 1 100ml.bag @ 100 mls/hr IVPB Q1H [facility] Rx#: [id number] Oral 240 Hemodialysis 500 Output: Urine 40 Hemodialysis 2000 Hemodialysis Net Amount 1500 Other: Voiding Method External Catheter External Catheter External Catheter # Voids 0 1 # Bowel Movements 0 - Exam GENERAL DESCRIPTION: An elderly female lying in bed in no distress RESPIRATORY SYSTEM: Unlabored breathing , decreased breath sounds at bases HEART: S1 S2 regular rate and rhythm , ABDOMEN: Soft , no tenderness EXTREMITIES: No edema feet - Labs CBC & Chem 7: 09/04/24 06:41 09/03/24 05:36 Labs: Abnormal Lab Results - Last 24 Hours (Table) 09/03/24 09/04/24 09/04/24 Range/Units 19:39 06:41 06:41 RBC 3.07 L (4.10-5.20) X 10*6/uL Hgb 9.8 L (12.0-15.0) g/dL Hct 31.8 L (37.2-46.3) % MCV 103.6 H (80.0-97.0) FL MCHC 30.8 L (32.0-37.0) g/dL RDW 15.6 H (11.5-14.5) % MPV 9.1 L (9.5-12.2) FL Immature Gran # 0.11 H (0.00-0.04) X 10*3/uL POC Glucose (mg/dL) 151 H (70-110) mg/dL TSH 6.060 H (0.350-5.500) UIU/ML Microbiology - Last 24 Hours (Table) 08/31/24 13:29 Blood Culture - Preliminary Blood Assessment and Plan (1) History of infection due to ESBL Escherichia coli Current Visit: Yes Status: Acute Code(s): Z86.19 - PERSONAL HISTORY OF OTHER INFECTIOUS AND PARASITIC DISEASES SNOMED Code(s): 888395808 (2) Allergy to cephalosporin Current Visit: Yes Status: Acute Code(s): Z88.1 - ALLERGY STATUS TO OTHER ANTIBIOTIC AGENTS SNOMED Code(s): 505929877 (3) Altered mental status Current Visit: Yes Status: Acute Code(s): R41.82 - ALTERED MENTAL STATUS, UNSPECIFIED SNOMED Code(s): 943630739 (4) UTI (urinary tract infection) Current Visit: Yes Status: Acute Code(s): N39.0 - URINARY TRACT INFECTION, SITE NOT SPECIFIED SNOMED Code(s): 95179194 Plan: 1patient presented hospital with mental status changes. The patient was found to be on the floor in front of her couch and there was a question of possible seizure activity patient apparently was diagnosed with UTI the day prior and will treat the patient and receive an antibiotic for it patient is a dialysis patient however still making urine has been complaining of burning frequency and did have suprapubic tenderness concerning for symptomatic urinary tract infection likely from prior gram-negative pathogen 2-patient with cefuroxime allergy 3-patient did have some clinical improvement and resolution of the urinary sympt oms received about 3-day course of meropenem should be enough for her cystitis discontinue meropenem Dictation was produced using [employer] dictation software. please excuse any grammatical, word or spelling errors. Time with Patient: Less than 30
[2024-09-04 17:09] LABS: Glucose,Whole Blood 77 mg/dL (70-110)
[2024-09-04] MEDS ORDERED: ZINC OXIDE PASTE (Z-GUARD) 1 APPLIC TOPICAL PRN (18:10)
[2024-09-04] MEDS ORDERED: NYSTATIN 100,000 UNIT/GM POWD 15 GM TOPICAL PRN (18:11)
--- NOTE | 2024-09-04 23:41 | P.PN ---
Subjective Progress Note Date: 09/02/[address] Rizvi. Chronic medical conditions include hypertension, hyperlipidemia, depression, anxiety, osteoarthritis. End-stage kidney disease on hemodialysis. Patient gets hemodialysis Sunday and Sunday. Has right upper extremity fistula. Her blood pressure does fluctuate. Has midodrine ordered as needed. Patient also been diagnosed with bladder cancer. Locally by Dr. Joshua. Patient is not sure why she is here. Per the EMS report they received a call from a friend who did a welfare check. Officer location reported patient lying on the floor needing help getting dressed. Patient had a fall yesterday in which she was transported for evaluation. Yesterday patient was alert to person place and time and stated to have back pain was chronic. Patient found to be more confused today. She is not able to tell me who brought her here and why she was brought here. She thinks is 2014. She does states she has been following. Patient not sure if she has been getting a dialysis 09/01/2024 Patient is in the MICU. Awake alert and mental status improving. No complaints of chest pain or shortness of breath. No headache or dizziness or lightheadedness. No prior history of seizures. Laboratory data showed WC 9.6 hemoglobin 9.7 and platelets 296, MCV 103.1 Sodium 134 potassium 5.5 BUN [address] head showed old right-sided bur hole. Mild generalized cerebral atrophy and mild burden of chronic small vessel ischemic disease. No acute intracranial abnormality. Longstanding severe right maxillary sinus disease. Consider outpatient ENT referral. Chest x-ray showed interstitial densities similar to slightly increased. Correlate to exclude fluid overload/mild pulmonary vascular congestion. 09/02/2024 Patient is in the MICU. Awake alert but confused. Constant observer in place. EEG showed evidence of seizure activity and is being continued on Keppra. Afebrile. No complaints of chest pain or shortness of breath. Patient is sched uled for hemodialysis tomorrow. Laboratory data showed WBC 7.0 hemoglobin 9.3 MCV 102.8 and platelets 243, sodium 133 potassium 4.2 chloride 94 bicarb is 31 BUN 25 and creatinine 3.91 and blood sugar 69 this morning. Keppra was changed to p.o. Neurology and critical care team is on board. Review of systems: GEN.: Tired EYES: None HEENT: None NECK: None RESPIRATORY: None CARDIOVASCULAR: None GASTROINTESTINAL: None GENITOURINARY: None MUSCULOSKELETAL: Some joint pains e] LYMPHATICS: None HEMATOLOGICAL: None PSYCHIATRY: Confused NEUROLOGICAL: None Past medical history to include: Hypertension, hyperlipidemia, depression, anxiety, osteoarthritis, end-stage kidney disease on hemodialysis, uterine cancer, bariatric surgery, depression, osteoarthritis. Bladder cancer Social history: Quit smoking over 30 years ago. Lives alone. Does use a cane at home and a walker when she goes out Physical examination: VITAL SIGNS: 97.6, 74, 18, 123 x 71, 95% room GENERAL: BMI 36.1. Slightly confused. Moving about. Right upper extremity fistula EYES: Pupils equal. Conjunctiva normal. HEENT: External appearance of nose and ears normal, oral cavity grossly normal. NECK: JVD not raised; masses not palpable. HEART: First and second heart sounds are normal; some edema. LUNGS: Respiratory rate normal; decreased breath sound ABDOMEN: Soft, nontender, liver spleen not palpable, no masses palpable. PSYCH: She is awake. Some fluctuation in mentation. She thinks she is at the hospital. Does not know who brought her here. MUSCULOSKELETAL:No Clubbing/cyanosis;muscles-grossly intact. OA NEUROLOGICAL: Cranial nerves grossly intact. Power sensation grossly intact. INVESTIGATIONS, reviewed in the clinical context: August 31: White count 7.9 hemoglobin 9.9 platelets 266 potassium 4.6 BUN 29 creatinine 4.36 UA positive for leukoesterase WBC clumps negative for nitrite Urine drug screen positive for opiates, oxycodone Serum alcohol less than 10 Influenza type A, type B, RSV, SARS-CoV-2: Not detected X-ray pelvis AP view: Cortical irregularity involving the right superior pubic ramus. Possible fracture Chest x-ray film personally reviewed by me-some elevation of right diaphragm otherwise unremarkable CT brain: Nonspecific white matter changes. EKG tracing normal sinus rhythm. Poor R wave progression CT pelvis without contrast: Soft tissue mass associated with the right aspect of the rectum and pathologically enlarged right pelvic sidewall and right iliac chain adenopathy. Suspicious for malignancy. Circumferential urinary bladder wall thickening with adjacent perivesical stranding. Assessment and plan: -Altered mental status secondary to postictal state with new onset seizures.. Improving. -Altered mental status secondary to metabolic toxic encephalopathy Patient's mentation is fluctuating. Patient was seen by neurology. CT head showed no acute intracranial process. Patient was started on Keppra 500 mg IV daily. Changed to p.o. Continue with seizure precautions. -Fall, multifactorial -Orthostatics with hypotension. Midodrine as needed -COPD in a prior smoker DuoNeb as needed - Bladder cancer diagnosed locally by Dr. Joshua. Soft tissue mass associated with right aspect of the rectum with pathologically enlarged right pelvic sidewall and right iliac chain adenopathy highly suspicious for malignancy. History of uterine cancer Previously: Per patient Dr. Joshua patient is due to have surgery in the [facility] -Anemia of chronic kidney disease - Acute UTI with possible cystitis. History of bladder cancer. IV meropenem was started in the ER based on previous culture ID is on board. Urine culture showed normal leni. Antibiotics have been discontinued after 3- day course. -End-stage kidney disease on hemodialysis. Right upper extremity AV fistula. From diabetic nephropathy Days Sunday Nephrology is following and hemodialysis as per schedule. -Essential hypertension, Toprol-XL. Prinivil-as needed. -Primary osteoarthritis Tylenol as needed -Obesity BMI 35.4 Weight loss measures -DO NOT RESUSCITATE Prognosis guarded. Given the complexity and severity of patient's condition expect the patient to be in the hospital at least for 2 overnights Objective - Vital Signs Vital signs: Vital Signs Temp 98.0 F 09/02/24 12:00 Pulse 92 09/02/24 15:00 Resp 14 09/02/24 15:00 BP 125/72 09/02/24 15:00 Pulse Ox 100 09/02/24 15:00 FiO2 Intake & Output 09/01/24 09/02/24 09/02/24 18:59 06:59 18:59 Intake Total 960 0 1130 Output Total 3500 45 10 Balance -2540 -45 1120 Weight 95 kg Intake: IV 460 0 100 KVO 70 0 Lactated Ringers 1,000 ml 390 @ 130 mls/hr IV .[id number] [facility] Rx#:[id number] Meropenem 1 gm In Sodium 100 Chloride 0.9% 100 ml @ 33 .3 mls/hr IVPB Q24H [facility] Rx#:[id number] Oral 1030 Hemodialysis 500 Output: Urine 0 45 10 Hemodialysis 2000 Hemodialysis Net Amount 1500 Other: Voiding Method Diaper External Catheter Incontinent # Voids 1 - Labs CBC & Chem 7: 09/04/24 06:41 09/03/24 05:36 Labs: Abnormal Lab Results - Last 24 Hours (Table) 09/02/24 09/02/24 09/02/24 Range/Units 00:09 05:26 05:29 RBC 2.88 L (4.10-5.20) 10*6/uL Hgb 9.3 L (12.0-15.0) g/dL Hct 29.6 L (37.2-46.3) % MCV 102.8 H (80.0-97.0) fL MCH 32.3 H (27.0-32.0) pg MCHC 31.4 L (32.0-37.0) g/dL MPV 8.7 L (9.5-12.2) fL Sodium (137-145) mmol/L Chloride (98-107) mmol/L Carbon Dioxide (22-30) mmol/L BUN (7-17) mg/dL Creatinine (0.52-1.04) mg/dL POC Glucose (mg/dL) 58 L 69 L (70-110) mg/dL 09/02/24 09/02/24 Range/Units 05:29 06:05 RBC (4.10-5.20) 10*6/uL Hgb (12.0-15.0) g/dL Hct (37.2-46.3) % MCV (80.0-97.0) fL MCH (27.0-32.0) pg MCHC (32.0-37.0) g/dL MPV (9.5-12.2) fL Sodium 133 L (137-145) mmol/L Chloride 94 L (98-107) mmol/L Carbon Dioxide 31 H (22-30) mmol/L BUN 25 H (7-17) mg/dL Creatinine 3.91 H (0.52-1.04) mg/dL POC Glucose (mg/dL) 130 H (70-110) mg/dL Microbiology - Last 24 Hours (Table) 08/31/24 10:56 Urine Culture - Final Urine,Voided 08/31/24 13:29 Blood Culture - Preliminary Blood
--- NOTE | 2024-09-04 23:42 | P.PN ---
Subjective Progress Note Date: 09/03/[address] Rizvi. Chronic medical conditions include hypertension, hyperlipidemia, depression, anxiety, osteoarthritis. End-stage kidney disease on hemodialysis. Patient gets hemodialysis Sunday and Sunday. Has right upper extremity fistula. Her blood pressure does fluctuate. Has midodrine ordered as needed. Patient also been diagnosed with bladder cancer. Locally by Dr. Joshua. Patient is not sure why she is here. Per the EMS report they received a call from a friend who did a welfare check. Officer location reported patient lying on the floor needing help getting dressed. Patient had a fall yesterday in which she was transported for evaluation. Yesterday patient was alert to person place and time and stated to have back pain was chronic. Patient found to be more confused today. She is not able to tell me who brought her here and why she was brought here. She thinks is 2014. She does states she has been following. Patient not sure if she has been getting a dialysis 09/01/2024 Patient is in the MICU. Awake alert and mental status improving. No complaints of chest pain or shortness of breath. No headache or dizziness or lightheadedness. No prior history of seizures. Laboratory data showed WC 9.6 hemoglobin 9.7 and platelets 296, MCV 103.1 Sodium 134 potassium 5.5 BUN [address] head showed old right-sided bur hole. Mild generalized cerebral atrophy and mild burden of chronic small vessel ischemic disease. No acute intracranial abnormality. Longstanding severe right maxillary sinus disease. Consider outpatient ENT referral. Chest x-ray showed interstitial densities similar to slightly increased. Correlate to exclude fluid overload/mild pulmonary vascular congestion. 09/02/2024 Patient is in the MICU. Awake alert but confused. Constant observer in place. EEG showed evidence of seizure activity and is being continued on Keppra. Afebrile. No complaints of chest pain or shortness of breath. Patient is sched uled for hemodialysis tomorrow. Laboratory data showed WBC 7.0 hemoglobin 9.3 MCV 102.8 and platelets 243, sodium 133 potassium 4.2 chloride 94 bicarb is 31 BUN 25 and creatinine 3.91 and blood sugar 69 this morning. Keppra was changed to p.o. Neurology and critical care team and ID is on board. 09/03/2024 Patient is in the MICU. Patient is more awake and alert but still confused. No seizures overnight. Patient is on Keppra p.o. Patient is undergoing hemodialysis. Urine culture showed no growth. Antibiotics have been discontinued. Laboratory data showed WBC 9.0 hemoglobin 9.8 and platelets 211 and MCV 102.0, sodium 131 potassium 3.7 chloride 94 bicarb is 30 BUN 36 and creatinine 5.18 and blood sugar 79 calcium 8.4. Patient is being transferred to medical floor today. Review of systems: GEN.: Tired EYES: None HEENT: None NECK: None RESPIRATORY: None CARDIOVASCULAR: None GASTROINTESTINAL: None GENITOURINARY: None MUSCULOSKELETAL: Some joint pains e] LYMPHATICS: None HEMATOLOGICAL: None PSYCHIATRY: Confused NEUROLOGICAL: None Past medical history to include: Hypertension, hyperlipidemia, depression, anxiety, osteoarthritis, end-stage kidney disease on hemodialysis, uterine cancer, bariatric surgery, depression, osteoarthritis. Bladder cancer Social history: Quit smoking over 30 years ago. Lives alone. Does use a cane at home and a walker when she goes out Physical examination: VITAL SIGNS: 97.6, 74, 18, 123 x 71, 95% room GENERAL: BMI 36.1. Slightly confused. Moving about. Right upper extremity fistula EYES: Pupils equal. Conjunctiva normal. HEENT: External appearance of nose and ears normal, oral cavity grossly normal. NECK: JVD not raised; masses not palpable. HEART: First and second heart sounds are normal; some edema. LUNGS: Respiratory rate normal; decreased breath sound ABDOMEN: Soft, nontender, liver spleen not palpable, no masses palpable. PSYCH: She is awake. Some fluctuation in mentation. She thinks she is at the hospital. Does not know who brought her here. MUSCULOSKELETAL:No Clubbing/cyanosis;muscles-grossly intact. OA NEUROLOGICAL: Cranial nerves grossly intact. Power sensation grossly intact. INVESTIGATIONS, reviewed in the clinical context: August 31: White count 7.9 hemoglobin 9.9 platelets 266 potassium 4.6 BUN 29 creatinine 4.36 UA positive for leukoesterase WBC clumps negative for nitrite Urine drug screen positive for opiates, oxycodone Serum alcohol less than 10 Influenza type A, type B, RSV, SARS-CoV-2: Not detected X-ray pelvis AP view: Cortical irregularity involving the right superior pubic ramus. Possible fracture Chest x-ray film personally reviewed by me-some elevation of right diaphragm o therwise unremarkable CT brain: Nonspecific white matter changes. EKG tracing normal sinus rhythm. Poor R wave progression CT pelvis without contrast: Soft tissue mass associated with the right aspect of the rectum and pathologically enlarged right pelvic sidewall and right iliac chain adenopathy. Suspicious for malignancy. Circumferential urinary bladder wall thickening with adjacent perivesical stranding. Assessment and plan: -Altered mental status secondary to postictal state with new onset seizures.. Improving. -Altered mental status secondary to metabolic toxic encephalopathy Patient's mentation is fluctuating. Patient was seen by neurology. CT head showed no acute intracranial process. Patient was started on Keppra 500 mg IV daily. Changed to p.o. Continue with seizure precautions. -Fall, multifactorial -Orthostatics with hypotension. Midodrine as needed -COPD in a prior smoker DuoNeb as needed - Bladder cancer diagnosed locally by Dr. Joshua. Soft tissue mass associated with right aspect of the rectum with pathologically enlarged right pelvic sidewall and right iliac chain adenopathy highly suspicious for malignancy. History of uterine cancer Previously: Per patient Dr. Joshua patient is due to have surgery in the [place] area -Anemia of chronic kidney disease - Acute UTI with possible cystitis. History of bladder cancer. IV meropenem was started in the ER based on previous culture ID is on board. Urine culture showed normal leni. Antibiotics have been discontinued after 3- day course. -End-stage kidney disease on hemodialysis. Right upper extremity AV fistula. From diabetic nephropathy Days Sunday Nephrology is following and hemodialysis as per schedule. -Essential hypertension, Toprol-XL. Prinivil-as needed. -Primary osteoarthritis Tylenol as needed -Obesity BMI 35.4 Weight loss measures -DO NOT RESUSCITATE Prognosis guarded. Given the complexity and severity of patient's condition expect the patient to be in the hospital at least for 2 overnights Objective - Vital Signs Vital signs: Vital Signs Temp 98.5 F 09/03/24 20:21 Pulse 99 09/03/24 20:21 Resp 16 09/03/24 20:21 BP 117/67 09/03/24 20:21 Pulse Ox 93 L 09/03/24 20:21 FiO2 Intake & Output 09/03/24 09/03/24 09/04/24 06:59 18:59 06:59 Intake Total 1040 Output Total 65 3540 Balance -65 -2500 Weight 97 kg 97 kg Intake: IV 300 Meropenem 1 gm In Sodium 100 Chloride 0.9% 100 ml @ 33 .3 mls/hr IVPB Q24H [facility] Rx#:[id number] Potassium Chloride 10 meq 200 In Water For Injection 1 100ml.bag @ 100 mls/hr IVPB Q1H [facility] Rx#: [id number] Oral 240 Hemodialysis 500 Output: Urine 65 40 Hemodialysis 2000 Hemodialysis Net Amount 1500 Other: Voiding Method External Catheter External Catheter External Catheter # Voids 0 # Bowel Movements 0 - Labs CBC & Chem 7: 09/04/24 06:41 09/03/24 05:36 Labs: Abnormal Lab Results - Last 24 Hours (Table) 09/03/24 09/03/24 09/03/24 Range/Units 05:29 05:36 05:36 RBC 3.03 L (4.10-5.20) 10*6/uL Hgb 9.8 L (12.0-15.0) g/dL Hct 30.9 L (37.2-46.3) % MCV 102.0 H (80.0-97.0) fL MCH 32.3 H (27.0-32.0) pg MCHC 31.7 L (32.0-37.0) g/dL MPV 8.1 L (9.5-12.2) fL Immature Gran # 0.07 H (0.00-0.04) 10*3/uL Sodium 131 L (137-145) mmol/L Chloride 94 L (98-107) mmol/L BUN 36 H (7-17) mg/dL Creatinine 5.18 H (0.52-1.04) mg/dL POC Glucose (mg/dL) 155 H (70-110) mg/dL 09/03/24 Range/Units 19:39 RBC (4.10-5.20) 10*6/uL Hgb (12.0-15.0) g/dL Hct (37.2-46.3) % MCV (80.0-97.0) fL MCH (27.0-32.0) pg MCHC (32.0-37.0) g/dL MPV (9.5-12.2) fL Immature Gran # (0.00-0.04) 10*3/uL Sodium (137-145) mmol/L Chloride (98-107) mmol/L BUN (7-17) mg/dL Creatinine (0.52-1.04) mg/dL POC Glucose (mg/dL) 151 H (70-110) mg/dL Microbiology - Last 24 Hours (Table) 08/31/24 13:29 Blood Culture - Preliminary Blood
--- NOTE | 2024-09-04 23:46 | P.PN ---
Subjective Progress Note Date: 09/04/[address] Rizvi. Chronic medical conditions include hypertension, hyperlipidemia, depression, anxiety, osteoarthritis. End-stage kidney disease on hemodialysis. Patient gets hemodialysis Sunday and Sunday. Has right upper extremity fistula. Her blood pressure does fluctuate. Has midodrine ordered as needed. Patient also been diagnosed with bladder cancer. Locally by Dr. Joshua. Patient is not sure why she is here. Per the EMS report they received a call from a friend who did a welfare check. Officer location reported patient lying on the floor needing help getting dressed. Patient had a fall yesterday in which she was transported for evaluation. Yesterday patient was alert to person place and time and stated to have back pain was chronic. Patient found to be more confused today. She is not able to tell me who brought her here and why she was brought here. She thinks is 2014. She does states she has been following. Patient not sure if she has been getting a dialysis 09/01/2024 Patient is in the MICU. Awake alert and mental status improving. No complaints of chest pain or shortness of breath. No headache or dizziness or lightheadedness. No prior history of seizures. Laboratory data showed WC 9.6 hemoglobin 9.7 and platelets 296, MCV 103.1 Sodium 134 potassium 5.5 BUN [address] head showed old right-sided bur hole. Mild generalized cerebral atrophy and mild burden of chronic small vessel ischemic disease. No acute intracranial abnormality. Longstanding severe right maxillary sinus disease. Consider outpatient ENT referral. Chest x-ray showed interstitial densities similar to slightly increased. Correlate to exclude fluid overload/mild pulmonary vascular congestion. 09/02/2024 Patient is in the MICU. Awake alert but confused. Constant observer in place. EEG showed evidence of seizure activity and is being continued on Keppra. Afebrile. No complaints of chest pain or shortness of breath. Patient is sched uled for hemodialysis tomorrow. Laboratory data showed WBC 7.0 hemoglobin 9.3 MCV 102.8 and platelets 243, sodium 133 potassium 4.2 chloride 94 bicarb is 31 BUN 25 and creatinine 3.91 and blood sugar 69 this morning. Keppra was changed to p.o. Neurology and critical care team and ID is on board. 09/03/2024 Patient is in the MICU. Patient is more awake and alert but still confused. No seizures overnight. Patient is on Keppra p.o. Patient is undergoing hemodialysis. Urine culture showed no growth. Antibiotics have been discontinued. Laboratory data showed WBC 9.0 hemoglobin 9.8 and platelets 211 and MCV 102.0, sodium 131 potassium 3.7 chloride 94 bicarb is 30 BUN 36 and creatinine 5.18 and blood sugar 79 calcium 8.4. Patient is being transferred to medical floor today. 09/04/2024 Patient is in the general medical floor. Awake alert and oriented x 1-2. On room air. Afebrile. No seizure activity overnight. Continued on p.o. Keppra. Urine culture and blood culture showed no growth. Currently off antibiotics. Laboratory data showed WBC 6.8 hemoglobin 9.8 and platelets 213, TSH 6.06 and free T40.94. B12 and folate within normal limits. PT OT will be consulted. Review of systems: GEN.: Tired EYES: None HEENT: None NECK: None RESPIRATORY: None CARDIOVASCULAR: None GASTROINTESTINAL: None GENITOURINARY: None MUSCULOSKELETAL: Some joint pains e] LYMPHATICS: None HEMATOLOGICAL: None PSYCHIATRY: Confused NEUROLOGICAL: None Past medical history to include: Hypertension, hyperlipidemia, depression, anxiety, osteoarthritis, end-stage kidney disease on hemodialysis, uterine cancer, bariatric surgery, depression, osteoarthritis. Bladder cancer Social history: Quit smoking over 30 years ago. Lives alone. Does use a cane at home and a walker when she goes out Physical examination: VITAL SIGNS: 97.6, 74, 18, 123 x 71, 95% room GENERAL: BMI 36.1. Slightly confused. Moving about. Right upper extremity fistula EYES: Pupils equal. Conjunctiva normal. HEENT: External appearance of nose and ears normal, oral cavity grossly normal. NECK: JVD not raised; masses not palpable. HEART: First and second heart sounds are normal; some edema. LUNGS: Respiratory rate normal; decreased breath sound ABDOMEN: Soft, nontender, liver spleen not palpable, no masses palpable. PSYCH: She is awake. Some fluctuation in mentation. She thinks she is at the hospital. Does not know who brought her here. MUSCULOSKELETAL:No Clubbing/cyanosis;muscles-grossly intact. OA NEUROLOGICAL: Cranial nerves grossly intact. Power sensation grossly intact. INVESTIGATIONS, reviewed in the clinical context: August 31: White count 7.9 hemoglobin 9.9 platelets 266 potassium 4.6 BUN 29 creatinine 4.36 UA positive for leukoesterase WBC clumps negative for nitrite Urine drug screen positive for opiates, oxycodone Serum alcohol less than 10 Influenza type A, type B, RSV, SARS-CoV-2: Not detected X-ray pelvis AP view: Cortical irregularity involving the right superior pubic ramus. Possible fracture Chest x-ray film personally reviewed by me-some elevation of right diaphragm otherwise unremarkable CT brain: Nonspecific white matter changes. EKG tracing normal sinus rhythm. Poor R wave progression CT pelvis without contrast: Soft tissue mass associated with the right aspect of the rectum and pathologically enlarged right pelvic sidewall and right iliac chain adenopathy. Suspicious for malignancy. Circumferential urinary bladder wall thickening with adjacent perivesical stranding. Assessment and plan: -Altered mental status secondary to postictal state with new onset seizures.. Improving. -Altered mental status secondary to metabolic toxic encephalopathy Patient's mentation is fluctuating. Patient was seen by neurology. CT head showed no acute intracranial process. Patient was started on Keppra 500 mg IV daily. Changed to p.o. Continue with seizure precautions. -Fall, multifactorial -Orthostatics with hypotension. Midodrine as needed -COPD in a prior smoker DuoNeb as needed - Bladder cancer diagnosed locally by Dr. Joshua. Soft tissue mass associated with right aspect of the rectum with pathologically enlarged right pelvic sidewall and right iliac chain adenopathy highly suspicious for malignancy. History of uterine cancer Previously: Per patient Dr. Joshua patient is due to have surgery in the [place] area -Anemia of chronic kidney disease - Acute UTI with possible cystitis. History of bladder cancer. IV meropenem was started in the ER based on previous culture ID is on board. Urine culture showed normal leni. Antibiotics have been discontinued after 3- day course. -End-stage kidney disease on hemodialysis. Right upper extremity AV fistula. From diabetic nephropathy Days Sunday Nephrology is following and hemodialysis as per schedule. -Essential hypertension, Toprol-XL. Prinivil-as needed. -Primary osteoarthritis Tylenol as needed -Obesity BMI 35.4 Weight loss measures -DO NOT RESUSCITATE Prognosis guarded. Given the complexity and severity of patient's condition expect the patient to be in the hospital at least for 2 overnights Objective - Vital Signs Vital signs: Vital Signs Temp 99.9 F H 09/04/24 18:54 Pulse 100 09/04/24 18:54 Resp 16 09/04/24 18:54 BP 118/67 09/04/24 18:54 Pulse Ox 95 09/04/24 18:54 FiO2 Intake & Output 09/04/24 09/04/24 09/05/24 06:59 18:59 06:59 Intake Total 1320 Balance 1320 Intake: Oral 1320 Other: Voiding Method External Catheter External Catheter # Voids 0 2 1 # Bowel Movements 0 - Labs CBC & Chem 7: 09/04/24 06:41 09/03/24 05:36 Labs: Abnormal Lab Results - Last 24 Hours (Table) 09/04/24 09/04/24 Range/Units 06:41 06:41 RBC 3.07 L (4.10-5.20) X 10*6/uL Hgb 9.8 L (12.0-15.0) g/dL Hct 31.8 L (37.2-46.3) % MCV 103.6 H (80.0-97.0) FL MCHC 30.8 L (32.0-37.0) g/dL RDW 15.6 H (11.5-14.5) % MPV 9.1 L (9.5-12.2) FL Immature Gran # 0.11 H (0.00-0.04) X 10*3/uL TSH 6.060 H (0.350-5.500) UIU/ML Microbiology - Last 24 Hours (Table) 08/31/24 13:29 Blood Culture - Preliminary Blood
[2024-09-05 00:16] LABS: Glucose,Whole Blood 114 mg/dL (70-110)
[2024-09-05 05:58] LABS: Glucose,Whole Blood 91 mg/dL (70-110)
[2024-09-05 07:51] LABS: Basophils # (A) 0.02 X 10*3/uL (0.00-0.10); Basophils % (A) 0.3 %; Eosinophils # (A) 0.21 X 10*3/uL (0.04-0.35); Eosinophils % (A) 3.6 %; HCT 29.4 % (37.2-46.3); HGB 9.3 g/dL (12.0-15.0); Immature Grans, Automated 1.40 %; Lymphocytes # (A) 0.92 X 10*3/uL (0.90-5.00); Lymphocytes % (A) 15.8 %; MCH 32.4 pg (27.0-32.0); MCHC 31.6 g/dL (32.0-37.0); MCV 102.4 FL (80.0-97.0); Monocytes # (A) 0.58 X 10*3/uL (0.20-1.00); Monocytes % (A) 10.0 %; NRBC Per 100 WBC 0 X 10*3/uL (0.00-0.01); Neutrophils # (A) 4.01 X 10*3/uL (1.80-7.70); Neutrophils % (A) 68.9 %; Platelet Count 193 X 10*3/uL (140-440); RBC 2.87 X 10*6/uL (4.10-5.20); RDW 15.6 % (11.5-14.5); WBC 5.82 X 10*3/uL (4.50-10.00)
[2024-09-05 08:25] LABS: Anion Gap 9.50 mmol/L (4.00-12.00); BUN/Creat Ratio 6.67 Ratio (12.00-20.00); Blood Urea Nitrogen 30.7 mg/dL (9.0-27.0); Calcium 8.0 mg/dL (8.7-10.3); Carbon Dioxide 28.5 mmol/L (21.6-31.8); Chloride 95 mmol/L (96-109); Glucose 80 mg/dL (70-110); Potassium 4.1 mmol/L (3.5-5.5); Sodium 133 mmol/L (135-145)
[2024-09-05 12:29] LABS: Glucose,Whole Blood 349 mg/dL (70-110)
--- NOTE | 2024-09-05 13:04 | P.PN ---
Subjective Progress Note Date: 09/05/24 This is a 79-year-old female brought into the ER yesterday with altered mental status. Patient was found on the ground in front of the couch at home. Apparently the patient was in the ER the day prior for UTI which was diagnosed in the ER and the patient was initiated on antibiotics. Patient came back to the ER within 24 hours now the patient was found to be confused altered mental status, and apparently she was initially admitted to the medical floor. This morning the patient was transferred to the ICU because of witnessed seizures. Patient was found on the floor to be minimally responsive and there was a concern about acute CVA. CT of the head was negative and shortly after she arrived to the ICU patient was noted to have tonic-clonic seizure activity loaded with Keppra, neurology consultation is pending and the patient will be maintained on Keppra. I saw the patient in the ICU, she seems to be confused, postictal, but not having any seizures activity during my evaluation. She seems to be arousable. But tends to fall asleep shortly after. ABG this morning showed a pO2 of 93 pCO2 46 pH of 7.37 and this was on room air. Labs today showed relatively normal CBC except for hemoglobin 9.7 potassium was 5.5, bicarb 23 BUN 35 creatinine 5.17, blood sugar was 87. Patient was seen by nephrology and the patient is known to have end-stage renal disease on hemodialysis Sunday and Sunday. Patient will be hemodialyzed today IV fluid presently at KVO. And antiepileptic medications was started. Patient was seen today on 09/02/2024, remains in the ICU, no witnessed seizure activity since yesterday, however on the EEG there was evidence of spiking patient received Ativan remains on Keppra. Being followed by neurology and other consultants including infectious disease, and internal medicine. Neurology input was appreciated, felt that the patient had new onset seizures probably secondary generalized tonic-clonic seizure and she has history of right-sided craniotomy for brain bleed, patient was seen by nephrology for her end-stage renal disease, on hemodialysis. And she does have history of bladder cancer. In addition to this the patient was found to have soft tissue mass associated with the right aspect of the rectum with pathologically enlarged right pelvic sidewall and right iliac chain adenopathy suspicious for malignancy. Patient was seen by orthopedics for left hip pain, recommended CT of pelvis. WBC count today is 7.0 hemoglobin 9.3 electrolytes are normal BUN is 25 creatinine 3.91. Blood sugar is 69. Patient was seen today on 09/03/2024, seen on follow-up, patient remains in the ICU confused, no witnessed seizures over the last 24 hours, patient remains on Merrem for her ESBL/E. coli UTI remains on hemodialysis and she will likely be d ialyzed today. Her IV fluid is at KVO patient is on room air, confused but not in any respiratory distress. She is hemodynamically stable. WBC count is 9 hemoglobin 9.8 electrolytes are normal BUN is 36 creatinine 5.18 blood sugar is 155. Calcium is 8.4. No major events over the last 24 hours and considering her relative improvement although she does have multiple complex issues I will transfer the patient out of the ICU to regular medical floor./Medical surgical floor. Patient is still being followed by many consultants including nephrology, infectious disease, orthopedics, and neurology. The patient is seen today September 04, 2024 in follow-up on the regular medical floor. She was transferred out of the intensive care unit yesterday. She is actually awake and alert in no acute distress. Maintaining good O2 saturations in the mid to upper 90s on room air oxygen. She has been afebrile. Hemodynamically stable. Urine culture revealed no growth. Blood culture revealed no growth. White count 6.8. Hemoglobin 9.8. Platelets 213. Hemoglobin A1c 4.9. Glucose 72. She remains on meropenem. Continued on Keppra. No further seizure activity. Lovenox for DVT prophylaxis. The patient is seen today September 05, 2024 in follow-up on the regular medical floor. She is currently sitting up in bed. Awake and alert in no acute distress. Denies any worsening shortness of breath, cough or congestion. Maintaining good O2 saturations in the mid 90s on room air oxygen. She has been afebrile. Hemodynamically stable. No further seizure activity. Blood culture revealed no growth. Urine culture revealed no growth. White count 5.8. Hemoglobin 9.3. Platelets 193. Sodium 133. Potassium 4.1. Bicarb 28. BUN 31. Creatinine 4.6. Glucose 80. She remains on Keppra. Lovenox for DVT prophylaxis. Completed meropenem. Objective - Vital Signs Vital signs: Vital Signs Temp 98.1 F 09/05/24 07:21 Pulse 87 09/05/24 07:21 Resp 14 09/05/24 07:21 BP 155/76 09/05/24 07:21 Pulse Ox 95 09/05/24 07:21 FiO2 Intake & Output 09/04/24 09/05/24 09/05/24 18:59 06:59 18:59 Intake Total 1320 Balance 1320 Intake: Oral 1320 Other: Voiding Method External Catheter Diaper Diaper # Voids 2 1 - Exam GENERAL EXAM: Alert, weak 79-year-old female, sitting up in bed, on room air oxygen, comfortable in no apparent distress. HEAD: Normocephalic. EYES: Normal reaction of pupils, equal size. NOSE: Clear with pink turbinates. THROAT: No erythema or exudates. NECK: No masses, no JVD. CHEST: No chest wall deformity. LUNGS: Equal air entry with no crackles, wheeze, rhonchi or dullness. CVS: S1 and S2 normal with no audible murmur, regular rhythm. ABDOMEN: No hepatosplenomegaly, normal bowel sounds, no guarding or rigidity. SPINE: No scoliosis or deformity SKIN: No rashes CENTRAL NERVOUS SYSTEM: No focal deficits, tone is normal in all 4 extremities. EXTREMITIES: There is no peripheral edema. No clubbing, no cyanosis. Peripheral pulses are intact. - Labs CBC & Chem 7: 09/05/24 05:38 09/05/24 05:35 Labs: Abnormal Lab Results - Last 24 Hours (Table) 09/05/24 09/05/24 09/05/24 Range/Units 00:10 05:35 05:38 RBC 2.87 L (4.10-5.20) X 10*6/uL Hgb 9.3 L (12.0-15.0) g/dL Hct 29.4 L (37.2-46.3) % MCV 102.4 H (80.0-97.0) FL MCH 32.4 H (27.0-32.0) pg MCHC 31.6 L (32.0-37.0) g/dL RDW 15.6 H (11.5-14.5) % MPV 9.3 L (9.5-12.2) FL Immature Gran # 0.08 H (0.00-0.04) X 10*3/uL Sodium 133 L (135-145) mmol/L Chloride 95 L (96-109) mmol/L BUN 30.7 H (9.0-27.0) mg/dL Creatinine 4.6 H (0.6-1.5) mg/dL Est GFR (CKD-EPI) 9 L (>=60) BUN/Creatinine Ratio 6.67 L (12.00-20.00) Ratio POC Glucose (mg/dL) 114 H (70-110) mg/dL Calcium 8.0 L (8.7-10.3) mg/dL 09/05/24 Range/Units 12:27 RBC (4.10-5.20) X 10*6/uL Hgb (12.0-15.0) g/dL Hct (37.2-46.3) % MCV (80.0-97.0) FL MCH (27.0-32.0) pg MCHC (32.0-37.0) g/dL RDW (11.5-14.5) % MPV (9.5-12.2) FL Immature Gran # (0.00-0.04) X 10*3/uL Sodium (135-145) mmol/L Chloride (96-109) mmol/L BUN (9.0-27.0) mg/dL Creatinine (0.6-1.5) mg/dL Est GFR (CKD-EPI) (>=60) BUN/Creatinine Ratio (12.00-20.00) Ratio POC Glucose (mg/dL) 349 H (70-110) mg/dL Calcium (8.7-10.3) mg/dL Assessment and Plan Assessment: New onset seizures, controlled on Keppra Postictal confusion and altered mental status, recovered Altered mental status secondary to above, improved History 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 Chronic kidney disease, on hemodialysis Underlying COPD, inactive History of bladder cancer Anemia of chronic disease Benign essential hypertension Acute metabolic encephalopathy secondary to above History of degenerative joint disease Plan: The patient was seen and evaluated Labs and medications reviewed No further seizure activity Remains on Keppra Lovenox for DVT prophylaxis Blood and urine cultures revealed no growth Completed meropenem Hemodialysis Sunday Stable on room air oxygen Cleared for discharge from the pulmonary/critical care standpoint Plan is for subacute rehabilitation at [facility] on the [place] This patient was seen independently by the pulmonary nurse practitioner addressing pulmonary/critical care issues I have personally seen and examined the patient, performed the documentation and the assessment and plan as written. Number of minutes spent on the visit: 25 Dictation was produced using [employer] dictation software. Please excuse any grammatical, word or spelling errors.
[2024-09-05 13:45] VITALS: PULSE 100
--- NOTE | 2024-09-05 15:25 | P.DS ---
Providers Date of admission: 08/31/24 12:53 Expected date of discharge: 09/05/24 Attending physician: Duncan Panchal Consults: 08/31/24 22:41 Consult Physician Routine Consulting Provider: Holly Tran Consult Reason/Comments: Hemodialysis patient Do you want consulting provider notified?: Yes 08/31/24 22:42 Consult Physician Routine Consulting Provider: Farhat Alvarado Consult Reason/Comments: Left hip pain, fall Do you want consulting provider notified?: Yes 08/31/24 22:47 Consult Physician Routine Consulting Provider: Leeanna Kovacs Consult Reason/Comments: Possible UTI Do you want consulting provider notified?: Yes 09/01/24 07:59 Consult Physician Routine Consulting Provider: Mariaelena Anand Consult Reason/Comments: ICU care Do you want consulting provider notified?: Already Contacted 09/01/24 08:44 Consult Physician Urgent Consulting Provider: Tino Gonsalez Consult Reason/Comments: Active seizures Do you want consulting provider notified?: Yes Primary care physician: Gautam Rizvi [facility] Course: Discharge diagnosis -Altered mental status secondary to postictal state with new onset seizures. Improved to baseline. -Altered mental status secondary to metabolic toxic encephalopathy -Fall, multifactorial -Orthostatics with hypotension. Continue with midodrine as needed -COPD - Bladder cancer diagnosed locally by Dr. Joshua. Soft tissue mass associated with right aspect of the rectum with pathologically enlarged right pelvic sidewall and right iliac chain adenopathy highly suspicious for malignancy. History of uterine cancer Previously: Per patient Dr. Joshua patient is due to have surgery in the [place] area -Anemia of chronic kidney disease - Acute UTI with possible cystitis. Urine culture negative. Completed 3-day anti-COVID course with meropenem. -End-stage kidney disease on hemodialysis. Right upper extremity AV fistula. From diabetic nephropathy Days Sunday Patient underwent hemodialysis today. -Essential hypertension, Toprol-XL. Prinivil -Primary osteoarthritis Tylenol as needed -Obesity BMI 35.4 Weight loss measures -DO NOT RESUSCITATE Hospital course [address] Rizvi. Chronic medical conditions include hypertension, hyperlipidemia, depression, anxiety, osteoarthritis. End-stage kidney disease on hemodialysis. Patient gets hemodialysis Sunday and Sunday. Has right upper extremity fistula. Her blood pressure does fluctuate. Has midodrine ordered as needed. Patient also been diagnosed with bladder cancer. Locally by Dr. Joshua. Patient is not sure why she is here. Per the EMS report they received a call from a friend who did a welfare check. Officer location reported patient lying on the floor needing help getting dressed. Patient had a fall yesterday in which she was transported for evaluation. Yesterday patient was alert to person place and time and stated to have back pain was chronic. Patient found to be more confused today. She is not able to tell me who brought her here and why she was brought here. She thinks is 2014. She does states she has been following. Patient not sure if she has been getting a dialysis 09/01/2024 Patient is in the MICU. Patient was transferred to MICU due to altered mental status and possible seizures. Awake alert and mental status improving. No complaints of chest pain or shortness of breath. No headache or dizziness or lightheadedness. No prior history of seizures. Laboratory data showed WC 9.6 hemoglobin 9.7 and platelets 296, MCV 103.1 Sodium 134 potassium 5.5 BUN [address] head showed old right-sided bur hole. Mild generalized cerebral atrophy and mild burden of chronic small vessel ischemic disease. No acute intracranial abnormality. Longstanding severe right maxillary sinus disease. Consider outpatient ENT referral. Chest x-ray showed interstitial densities similar to slightly increased. Correlate to exclude fluid overload/mild pulmonary vascular congestion. 09/02/2024 Patient is in the MICU. Awake alert but confused. Constant observer in place. EEG showed evidence of seizure activity and is being continued on Keppra. Afebrile. No complaints of chest pain or shortness of breath. Patient is scheduled for hemodialysis tomorrow. Laboratory data showed WBC 7.0 hemoglobin 9.3 MCV 102.8 and platelets 243, sodium 133 potassium 4.2 chloride 94 bicarb is 31 BUN 25 and creatinine 3.91 and blood sugar 69 this morning. Keppra was changed to p.o. Neurology and critical care team and ID is on board. 09/03/2024 Patient is in the MICU. Patient is more awake and alert but still confused. No seizures overnight. Patient is on Keppra p.o. Patient is undergoing hemodialysis. Urine culture showed no growth. Antibiotics have been discontinued. Laboratory data showed WBC 9.0 hemoglobin 9.8 and platelets 211 and MCV 102.0, sodium 131 potassium 3.7 chloride 94 bicarb is 30 BUN 36 and creatinine 5.18 and blood sugar 79 calcium 8.4. Patient is being transferred to medical floor today. 09/04/2024 Patient is in the general medical floor. Awake alert and oriented x 1-2. On room air. Afebrile. No seizure activity overnight. Continued on p.o. Keppra. Urine culture and blood culture showed no growth. Currently off antibiotics. Laboratory data showed WBC 6.8 hemoglobin 9.8 and platelets 213, TSH 6.06 and free T40.94. B12 and folate within normal limits. PT OT will be consulted. 09/05/2024 Patient is awake alert oriented x 2-3. On room air. No complaints of chest pain or shortness of breath. No seizure activity overnight. No other acute overnight issues. Continued on Keppra. Completed antibiotic course. Patient underwent hemodialysis today. Patient is being discharged to rehab today. Physical examination: GENERAL: BMI 36.1. Mentation at baseline moving about. Right upper extremity fistula EYES: Pupils equal. Conjunctiva normal. HEENT: External appearance of nose and ears normal, oral cavity grossly normal. NECK: JVD not raised; masses not palpable. HEART: First and second heart sounds are normal; some edema. LUNGS: Respiratory rate normal; decreased breath sound ABDOMEN: Soft, nontender, liver spleen not palpable, no masses palpable. PSYCH: She is awake. Some fluctuation in mentation. She thinks she is at the hospital. Does not know who brought her here. MUSCULOSKELETAL:No Clubbing/cyanosis;muscles-grossly intact. OA NEUROLOGICAL: Awake alert and oriented x 2-3. Cranial nerves grossly intact. Power sensation grossly intact. INVESTIGATIONS, reviewed in the clinical context: August 31: White count 7.9 hemoglobin 9.9 platelets 266 potassium 4.6 BUN 29 creatinine 4.36 UA positive for leukoesterase WBC clumps negative for nitrite Urine drug screen positive for opiates, oxycodone Serum alcohol less than 10 Influenza type A, type B, RSV, SARS-CoV-2: Not detected X-ray pelvis AP view: Cortical irregularity involving the right superior pubic ramus. Possible fracture Chest x-ray film personally reviewed by me-some elevation of right diaphragm otherwise unremarkable CT brain: Nonspecific white matter changes. EKG tracing normal sinus rhythm. Poor R wave progression CT pelvis without contrast: Soft tissue mass associated with the right aspect of the rectum and pathologically enlarged right pelvic sidewall and right iliac chain adenopathy. Suspicious for malignancy. Circumferential urinary bladder wall thickening with adjacent perivesical stranding. Vital Signs 09/05/24 12:23 Temperature 97.7 F Pulse Rate [ 100 Pulse Oximetery ] Respiratory 20 Rate Blood Pressure 112/59 [Left Arm] O2 Sat by Pulse 97 Oximetry Total time taken greater than 35 minutes including 18 minutes for counseling and coordination of care. Patient Condition at Discharge: Stable Plan - Discharge Summary New Discharge Prescriptions: New levETIRAcetam [Keppra] 500 mg PO DAILY tab Enoxaparin [Lovenox] 30 mg SQ HS each Nystatin 100,000 Unit/gm Powd [Mycostatin Powder] 1 applic TOPICAL BID PRN each PRN Reason: redness Continue Calcium Acetate 1,334 mg PO TID-W/MEALS Albuterol Inhaler [Ventolin Hfa Inhaler] 2 puff INHALATION RT-QID PRN PRN Reason: Shortness Of Breath Folic Acid/Vit B Complex and C [Nephro-Karla Tablet] 0.8 mg PO HS Lidocaine-Prilocaine Cream [Emla Cream 2.5%/2.5%] 1 applic TOPICAL MOWEFR PRN PRN Reason: AVF access Furosemide [Lasix] 80 mg PO DAILY PRN PRN Reason: "How I feel" Acetaminophen Tab [Tylenol] 650 mg PO Q4HR PRN tab PRN Reason: Fever>101 Ipratropium-Albuterol Nebulize [Duoneb 0.5 mg-3 mg/3 ml Soln] 3 ml INHALATION RT-TID PRN PRN Reason: Shortness Of Breath Metoprolol Succinate (ER) [Toprol XL] 12.5 mg PO HS PRN PRN Reason: SBP>140 lisinopriL [Prinivil] 20 mg PO DAILY PRN PRN Reason: sys>140 Midodrine [ProAmatine] 2.5 - 5 mg PO AC-BID Ondansetron [Zofran] 4 mg PO Q8H PRN PRN Reason: Nausea oxyCODONE-APAP 10-325MG [Percocet 10-325 mg] 1 tab PO TID PRN #6 tab PRN Reason: Pain Discontinued Ertapenem [INVanz] 1 gm IM Q24H Discharge Medication List Calcium Acetate 1,334 mg PO TID-W/MEALS 12/22/19 [History] Albuterol Inhaler [Ventolin Hfa Inhaler] 2 puff INHALATION RT-QID PRN 06/15/22 [History] Acetaminophen Tab [Tylenol] 650 mg PO Q4HR PRN tab 01/22/23 [Rx] Folic Acid/Vit B Complex and C [Nephro-Karla Tablet] 0.8 mg PO HS 08/27/23 [H istory] Lidocaine-Prilocaine Cream [Emla Cream 2.5%/2.5%] 1 applic TOPICAL MOWEFR PRN 08/27/23 [History] Ipratropium-Albuterol Nebulize [Duoneb 0.5 mg-3 mg/3 ml Soln] 3 ml INHALATION RT-TID PRN 05/06/24 [History] Metoprolol Succinate (ER) [Toprol XL] 12.5 mg PO HS PRN 06/06/24 [History] Furosemide [Lasix] 80 mg PO DAILY PRN 08/12/24 [History] Midodrine [ProAmatine] 2.5 - 5 mg PO AC-BID 08/12/24 [History] lisinopriL [Prinivil] 20 mg PO DAILY PRN 08/12/24 [History] Ondansetron [Zofran] 4 mg PO Q8H PRN 08/31/24 [History] Enoxaparin [Lovenox] 30 mg SQ HS each 09/05/24 [Rx] Nystatin 100,000 Unit/gm Powd [Mycostatin Powder] 1 applic TOPICAL BID PRN each 09/05/24 [Rx] levETIRAcetam [Keppra] 500 mg PO DAILY tab 09/05/24 [Rx] oxyCODONE-APAP 10-325MG [Percocet 10-325 mg] 1 tab PO TID PRN #6 tab 09/05/24 [Rx] Follow up Appointment(s)/Referral(s): Gautam Rizvi DO [Primary Care Provider] - 1-2 days Discharge Disposition: TRANSFER TO SNF/ECF
--- NOTE | 2024-09-05 16:22 | P.PN ---
Subjective Progress Note Date: 09/05/24 Principal diagnosis: Reason for follow-up is UTI Patient is a 79-year-old female with a past medical history significant for Asthma, Cancer, COPD, Dialysis, Hyperlipidemia, Hypertension, Myocardial Infarction ([place]), Osteoarthritis (OA), Pneumonia, Renal Disease, Thyroid Disorder, uterine cancer end-stage renal disease on hemodialysis still makes urine presenting to the hospital after the patient was found to be unresponsive there was concern for possible seizure activity patient did have a positive for some urinary symptoms concerning for UTI prompting this consul tation. On today's evaluation that is 09/05/2024, the patient did have low-grade fever of 99.9 last evening the patient is afebrile this morning patient is currently breathing comfortably on room air no chest pain shortness of breath or cough no abdominal pain or diarrhea. The patient white count 5.82, creatinine 4.6 blood and urine culture have been negative Objective - Vital Signs Vital signs: Vital Signs Temp 97.7 F 09/05/24 12:23 Pulse 100 09/05/24 12:23 Resp 20 09/05/24 12:23 BP 112/59 09/05/24 12:23 Pulse Ox 97 09/05/24 12:23 FiO2 Intake & Output 09/04/24 09/05/24 09/05/24 18:59 06:59 18:59 Intake Total 1320 120 Balance 1320 120 Intake: Oral 1320 120 Other: Voiding Method External Catheter Diaper Diaper # Voids 2 1 1 # Bowel Movements 1 - Exam GENERAL DESCRIPTION: An elderly female lying in bed in no distress RESPIRATORY SYSTEM: Unlabored breathing , decreased breath sounds at bases HEART: S1 S2 regular rate and rhythm , ABDOMEN: Soft , no tenderness EXTREMITIES: No edema feet - Labs CBC & Chem 7: 09/05/24 05:38 09/05/24 05:35 Labs: Abnormal Lab Results - Last 24 Hours (Table) 09/05/24 09/05/24 09/05/24 Range/Units 00:10 05:35 05:38 RBC 2.87 L (4.10-5.20) X 10*6/uL Hgb 9.3 L (12.0-15.0) g/dL Hct 29.4 L (37.2-46.3) % MCV 102.4 H (80.0-97.0) FL MCH 32.4 H (27.0-32.0) pg MCHC 31.6 L (32.0-37.0) g/dL RDW 15.6 H (11.5-14.5) % MPV 9.3 L (9.5-12.2) FL Immature Gran # 0.08 H (0.00-0.04) X 10*3/uL Sodium 133 L (135-145) mmol/L Chloride 95 L (96-109) mmol/L BUN 30.7 H (9.0-27.0) mg/dL Creatinine 4.6 H (0.6-1.5) mg/dL Est GFR (CKD-EPI) 9 L (>=60) BUN/Creatinine Ratio 6.67 L (12.00-20.00) Ratio POC Glucose (mg/dL) 114 H (70-110) mg/dL Calcium 8.0 L (8.7-10.3) mg/dL 09/05/24 Range/Units 12:27 RBC (4.10-5.20) X 10*6/uL Hgb (12.0-15.0) g/dL Hct (37.2-46.3) % MCV (80.0-97.0) FL MCH (27.0-32.0) pg MCHC (32.0-37.0) g/dL RDW (11.5-14.5) % MPV (9.5-12.2) FL Immature Gran # (0.00-0.04) X 10*3/uL Sodium (135-145) mmol/L Chloride (96-109) mmol/L BUN (9.0-27.0) mg/dL Creatinine (0.6-1.5) mg/dL Est GFR (CKD-EPI) (>=60) BUN/Creatinine Ratio (12.00-20.00) Ratio POC Glucose (mg/dL) 349 H (70-110) mg/dL Calcium (8.7-10.3) mg/dL Assessment and Plan (1) History of infection due to ESBL Escherichia coli Current Visit: Yes Status: Acute Code(s): Z86.19 - PERSONAL HISTORY OF OTHER INFECTIOUS AND PARASITIC DISEASES SNOMED Code(s): 952605901 (2) Allergy to cephalosporin Current Visit: Yes Status: Acute Code(s): Z88.1 - ALLERGY STATUS TO OTHER ANTIBIOTIC AGENTS SNOMED Code(s): 595596605 (3) Altered mental status Current Visit: Yes Status: Acute Code(s): R41.82 - ALTERED MENTAL STATUS, UNSPECIFIED SNOMED Code(s): 610609307 (4) UTI (urinary tract infection) Current Visit: Yes Status: Acute Code(s): N39.0 - URINARY TRACT INFECTION, SITE NOT SPECIFIED SNOMED Code(s): 72338768 Plan: 1patient presented hospital with mental status changes. The patient was found to be on the floor in front of her couch and there was a question of possible seizure activity patient apparently was diagnosed with UTI the day prior and will treat the patient and receive an antibiotic for it patient is a dialysis patient however still making urine has been complaining of burning frequency and did have suprapubic tenderness concerning for symptomatic urinary tract infection likely from prior gram-negative pathogen 2-patient with cefuroxime allergy 3-patient did have resolution of her urinary symptoms, blood and urine culture negative no need for antibiotic on discharge Dictation was produced using [employer] dictation software. please excuse any grammatical, word or spelling errors. Time with Patient: Less than 30
[2024-09-05 17:22] VITALS: BP 124/86; RESP 16; TEMP 97.6
[2024-09-05 17:35] LABS: Glucose,Whole Blood 82 mg/dL (70-110)
--- NOTE | 2024-09-05 18:13 | P.PN ---
Subjective Patient is seen for follow-up for end-stage renal disease. Admitted with new onset seizures. EEG showed epileptiform spike. Currently maintained on Keppra. Scheduled for hemodialysis today. Mentation has improved and appears to be back to normal. Objective - Vital Signs Vital signs: Vital Signs Temp 97.6 F 09/05/24 17:21 Pulse 100 09/05/24 12:23 Resp 16 09/05/24 17:21 BP 124/86 09/05/24 17:21 Pulse Ox 97 09/05/24 12:23 FiO2 Intake & Output 09/04/24 09/05/24 09/05/24 18:59 06:59 18:59 Intake Total 1320 2520 Output Total 2400 Balance 1320 120 Intake: Oral 1320 120 Hemodialysis 2400 Output: Hemodialysis 400 Hemodialysis Net Amount 2000 Other: Voiding Method External Catheter Diaper Diaper # Voids 2 1 1 # Bowel Movements 1 - Exam Patient is awake, comfortable, no acute distress Oriented x 3 Examination of the heart S1 and S2 Examination of the lungs shows bilateral breath sounds are heard with decreased breath sounds at the bases Abdomen is soft nontender Examination of lower extremity shows trace edema bilaterally WHEEL CUTTER exam shows patient is moving all 4 extremities. - Labs CBC & Chem 7: 09/05/24 05:38 09/05/24 05:35 Labs: Abnormal Lab Results - Last 24 Hours (Table) 09/05/24 09/05/24 09/05/24 Range/Units 00:10 05:35 05:38 RBC 2.87 L (4.10-5.20) X 10*6/uL Hgb 9.3 L (12.0-15.0) g/dL Hct 29.4 L (37.2-46.3) % MCV 102.4 H (80.0-97.0) FL MCH 32.4 H (27.0-32.0) pg MCHC 31.6 L (32.0-37.0) g/dL RDW 15.6 H (11.5-14.5) % MPV 9.3 L (9.5-12.2) FL Immature Gran # 0.08 H (0.00-0.04) X 10*3/uL Sodium 133 L (135-145) mmol/L Chloride 95 L (96-109) mmol/L BUN 30.7 H (9.0-27.0) mg/dL Creatinine 4.6 H (0.6-1.5) mg/dL Est GFR (CKD-EPI) 9 L (>=60) BUN/Creatinine Ratio 6.67 L (12.00-20.00) Ratio POC Glucose (mg/dL) 114 H (70-110) mg/dL Calcium 8.0 L (8.7-10.3) mg/dL 09/05/24 Range/Units 12:27 RBC (4.10-5.20) X 10*6/uL Hgb (12.0-15.0) g/dL Hct (37.2-46.3) % MCV (80.0-97.0) FL MCH (27.0-32.0) pg MCHC (32.0-37.0) g/dL RDW (11.5-14.5) % MPV (9.5-12.2) FL Immature Gran # (0.00-0.04) X 10*3/uL Sodium (135-145) mmol/L Chloride (96-109) mmol/L BUN (9.0-27.0) mg/dL Creatinine (0.6-1.5) mg/dL Est GFR (CKD-EPI) (>=60) BUN/Creatinine Ratio (12.00-20.00) Ratio POC Glucose (mg/dL) 349 H (70-110) mg/dL Calcium (8.7-10.3) mg/dL Assessment and Plan Assessment: 1. End-stage renal disease on hemodialysis on Sunday schedule 2. Mental status changes secondary to postictal state with new onset seizures, improved 3. New onset seizures, neurology has been consulted, maintained on Keppra 4. CKD mineral bone disorder Plan: Hemodialysis today with UF of 1 to 2 L. Antiepileptic medications as per neurology
--- NOTE | 2024-09-05 18:43 | P.PN ---
Subjective Progress Note Date: 09/05/24 Patient was seen for a follow-up. Patient is fully alert and awake, laying in the bed. No seizures reported. States she is feeling better and worse. Her buttocks is hurting, low back is hurting. Does not know how long has she been in the hospital. Objective - Vital Signs Vital signs: Vital Signs Temp 97.6 F 09/05/24 17:21 Pulse 100 09/05/24 12:23 Resp 16 09/05/24 17:21 BP 124/86 09/05/24 17:21 Pulse Ox 97 09/05/24 12:23 FiO2 Intake & Output 09/04/24 09/05/24 09/05/24 18:59 06:59 18:59 Intake Total 1320 4200 Output Total 2400 Balance 1320 1800 Intake: Oral 1320 1800 Hemodialysis 2400 Output: Hemodialysis 400 Hemodialysis Net Amount 2000 Other: Voiding Method External Catheter Diaper Diaper # Voids 2 1 1 # Bowel Movements 1 - Exam Patient is very alert and awake. Patient knows it is August and the year is and that she is in "[facility]" in [facility]. Speech and language functions are normal. No aphasia or dysarthria. Cranial nerve examination pupils are equal, round and reacting, visual marlow are full with no neglect. Extraocular muscles are intact, face is symmetric. Tongue protrudes midline. On muscle strength testing the strength is normal in the arms except deltoid which is slightly weak 5-4+ on the right, 5-on the left. In the lower limbs hip flexion is 4+ and ankle dorsiflexion 5. Sensory to touch is equal. No ataxia for [id number] testing. - Labs CBC & Chem 7: 09/05/24 05:38 09/05/24 05:35 Labs: Abnormal Lab Results - Last 24 Hours (Table) 09/05/24 09/05/24 09/05/24 Range/Units 00:10 05:35 05:38 RBC 2.87 L (4.10-5.20) X 10*6/uL Hgb 9.3 L (12.0-15.0) g/dL Hct 29.4 L (37.2-46.3) % MCV 102.4 H (80.0-97.0) FL MCH 32.4 H (27.0-32.0) pg MCHC 31.6 L (32.0-37.0) g/dL RDW 15.6 H (11.5-14.5) % MPV 9.3 L (9.5-12.2) FL Immature Gran # 0.08 H (0.00-0.04) X 10*3/uL Sodium 133 L (135-145) mmol/L Chloride 95 L (96-109) mmol/L BUN 30.7 H (9.0-27.0) mg/dL Creatinine 4.6 H (0.6-1.5) mg/dL Est GFR (CKD-EPI) 9 L (>=60) BUN/Creatinine Ratio 6.67 L (12.00-20.00) Ratio POC Glucose (mg/dL) 114 H (70-110) mg/dL Calcium 8.0 L (8.7-10.3) mg/dL 09/05/ Range/Units 12:27 RBC (4.10-5.20) X 10*6/uL Hgb (12.0-15.0) g/dL Hct (37.2-46.3) % MCV (80.0-97.0) FL MCH (27.0-32.0) pg MCHC (32.0-37.0) g/dL RDW (11.5-14.5) % MPV (9.5-12.2) FL Immature Gran # (0.00-0.04) X 10*3/uL Sodium (135-145) mmol/L Chloride (96-109) mmol/L BUN (9.0-27.0) mg/dL Creatinine (0.6-1.5) mg/dL Est GFR (CKD-EPI) (>=60) BUN/Creatinine Ratio (12.00-20.00) Ratio POC Glucose (mg/dL) 349 H (70-110) mg/dL Calcium (8.7-10.3) mg/dL Assessment and Plan Assessment: * New onset seizures, probably secondary generalized tonic-clonic seizure. * History of right-sided craniotomy for "brain bleed". * ESRD, on hemodialysis * Altered mental status, likely due to toxic metabolic encephalopathy and from postictal state. * Acute UTI * Macrocytic anemia * Hypertension * Hyperlipidemia * Uterine cancer * Bladder cancer * History of B12 deficiency * Soft tissue mass associated with the right aspect of the rectum with pathologically enlarged right pelvic sidewall and right iliac chain adenopathy, highly suspicious for malignancy. Plan: * EEG abnormal due to background slowing, suggestive of mild encephalopathy. No focal, lateralized or epileptiform activity was seen. * Patient started on Keppra 500 mg once daily for new onset seizure. Would recommend extra bolus of Keppra 250 mg postdialysis. We will switch from IV to oral Keppra. * CT of pelvis showed soft tissue mass associated with the right aspect of rectum with enlarged lymph nodes, concerning for rectal adenocarcinoma. Also revealed circumferential urinary bladder with wall thickening with adjacent perivascular stranding. Recommend clinical correlation with UA for cystitis. Primary team aware. Patient follows up with Dr. Joshua. Patient to have surgery soon in [place]. * Carotid Doppler from 06/26/2024 revealed slightly elevated velocities bilaterally without significant atherosclerotic narrowing seen. This may be due to underlying hypertension. No hemodynamically significant internal carotid artery stenosis on either side. Antegrade flow in both vertebral arteries. No need to repeat. * 2D echo from 05/06/2024 revealed normal LV size and systolic function. Mildly increased posterior wall thickness. No obvious regional wall motion abnormalities. Severely increased left atrial volume. Mild to moderate . * Consider starting aspirin 81 mg. * Other medical management as per IM and other specialties on board. * Patient is tolerating Keppra well. Uncertain if mental confusion is related to Keppra. We will observe. * B12 626, folate 18.8, TSH 6.06 slightly elevated and free T4 normal 0.94. MMA pending, but B12 is normal. Hemoglobin A1c 4.9. * Lipid panel with cholesterol 134, LDL 57, HDL 63, triglycerides 64. Lipids are well-controlled. * Avoid opiates, sedatives hypnotics. * DVT prophylaxis: Patient on Lovenox 30 mg subcu daily. * Neurologically clear for discharge.
== END 2024-09-05 18:51 | DRG 689 ==
LOC: EC 09:10 → 5NMEDONC 12:53 → 2SICU 09-01 06:53 → 5NMEDONC 09-03 21:18
PROVIDERS: ADMIT Hospitalist; ATTEND Hospitalist
PROC: 5A1D70Z Performance of Urinary Filtration, Intermittent, Less than 6 Hours Per Day (ICD-10-PCS; principal; 2024-09-01)
PROC: 4A00X4Z Measurement of Central Nervous Electrical Activity, External Approach (ICD-10-PCS; 2024-09-02)
DX: N30.00 Acute cystitis without hematuria (principal); G92.8 Other toxic encephalopathy; N18.6 End stage renal disease; Z66 Do not resuscitate; I12.0 Hypertensive chronic kidney disease with stage 5 chronic kidney disease or end stage renal disease; D63.1 Anemia in chronic kidney disease; C67.9 Malignant neoplasm of bladder, unspecified; Z99.2 Dependence on renal dialysis; C55 Malignant neoplasm of uterus, part unspecified; E11.22 Type 2 diabetes mellitus with diabetic chronic kidney disease; J44.89 Other specified chronic obstructive pulmonary disease; R56.9 Unspecified convulsions; Z68.35 Body mass index [BMI] 35.0-35.9, adult; F32.A Depression, unspecified; G93.89 Other specified disorders of brain; Z16.12 Extended spectrum beta lactamase (ESBL) resistance; G89.29 Other chronic pain; E66.9 Obesity, unspecified; E78.5 Hyperlipidemia, unspecified; F41.9 Anxiety disorder, unspecified; M89.8X8 Other specified disorders of bone, other site; B96.20 Unspecified Escherichia coli [E. coli] as the cause of diseases classified elsewhere; D53.9 Nutritional anemia, unspecified; I25.2 Old myocardial infarction; J32.0 Chronic maxillary sinusitis; M19.91 Primary osteoarthritis, unspecified site; Z79.899 Other long term (current) drug therapy; Z85.51 Personal history of malignant neoplasm of bladder; Z86.0100 Personal history of colon polyps, unspecified; Z86.73 Personal history of transient ischemic attack (TIA), and cerebral infarction without residual deficits; Z87.891 Personal history of nicotine dependence; Z88.1 Allergy status to other antibiotic agents; Z90.710 Acquired absence of both cervix and uterus; Z96.653 Presence of artificial knee joint, bilateral; Z85.42 Personal history of malignant neoplasm of other parts of uterus; Z98.84 Bariatric surgery status; Z88.5 Allergy status to narcotic agent; Z98.42 Cataract extraction status, left eye; Z98.41 Cataract extraction status, right eye; Z87.01 Personal history of pneumonia (recurrent); Z90.49 Acquired absence of other specified parts of digestive tract
CPT/HCPCS: 36415; 36600; 70450; 71045; 71046; 72170; 72192; 80048; 80053; 80306; 80320; 81001; 82140; 82550; 82607; 82746; 82803; 82805; 83036; 83605; 83921; 84439; 84443; 85025; 85027; 85610; 85730; 87040; 87086; 87636; 90935; 93005; 95816; 96361; 96365; 96366; 99285